=== PATIENT | female | born 1980 | race Caucasian/White ===

== ENCOUNTER 2023-12-13 09:16 | Outpatient (OUT) | payer BC, SELFPAY ==
[2023-12-13 09:49] LABS: Basophils Percent Auto 0.4 % (0.2-2.0); Eosinophils Absolute Auto 0.1 10^3/uL (0.0-0.7); Eosinophils Percent Auto 1.1 % (0.9-7.0); Hematocrit 40.8 % (36.0-48.0); Hemoglobin 13.4 g/dL (12.0-16.0); Immature Granulocytes Abs Auto 0.03 10^3/uL (0.00-0.03); Immature Granulocytes Pct Auto 0.6 % (0.0-0.5); Lymphocytes Absolute Auto 1.7 10^3/uL (1.2-3.8); Lymphocytes Percent Auto 31.1 % (20.5-60.0); Mean Corpuscular HGB Conc 32.8 g/dL (29.9-35.2); Mean Corpuscular Hemoglobin 30.6 pg (26.7-34.0); Mean Corpuscular Volume 93.2 fL (81.0-99.0); Mean Platelet Volume 8.9 fL (9.5-13.5); Monocytes Absolute Auto 0.7 10^3/uL (0.3-0.8); Monocytes Percent Auto 12.6 % (1.7-12.0); Neutrophils Absolute Auto 2.9 10^3/uL (1.4-6.5); Neutrophils Percent Auto 54.2 % (43.0-75.0); Platelet Count 259 10^3/uL (150-450); Red Blood Count 4.38 10^6/uL (4.20-5.40); Red Cell Distribution Width 13.4 % (11.0-15.0); White Blood Count 5.4 10^3/uL (4.0-11.0)
[2023-12-13 10:26] LABS: Estimated Average Glucose 100 mg/dL; Glycohemoglobin A1C 5.1 % (4.5-6.2)
[2023-12-13 10:37] LABS: Alanine Aminotransferase 30 U/L (14-59); Albumin Globulin Ratio 0.8; Albumin Level 3.5 g/dL (3.4-5.0); Alkaline Phosphatase 126 U/L (46-116); Anion Gap 15.6; Aspartate Amino Transferase 23 U/L (15-37); BUN Creatinine Ratio 13.9; Bilirubin Total 0.2 mg/dL (0.2-1.0); Calcium 8.6 mg/dL (8.5-10.1); Carbon Dioxide 23.7 mmol/L (21.0-32.0); Chloride 107 mmol/L (98-107); Chol HDL Ratio 2.9; Cholesterol 162 mg/dL (<=200); Estimated GFR (African America >60 (>=60); Estimated GFR (Non-African Ame >60 (>=60); Globulin 4.3 g/dL; Glucose 101 mg/dL (74-106); HDL Cholesterol 56 mg/dL (40-60); LDL Cholesterol Calculated 90.6 mg/dL; Potassium 4.3 mmol/L (3.5-5.1); Sodium 142 mmol/L (136-145); Thyroid Stimulating Hormone 1.311 uIU/mL (0.358-3.740); Total Protein 7.8 g/dL (6.4-8.2); Triglycerides 77 mg/dL (<=150); VLDL CHOLESTEROL 15.4 mg/dL
== END 2023-12-13 09:17 | disposition home or self-care (01) ==
LOC: LAB 09:22
PROVIDERS: PCP Family Medicine; Visit Provider Family Medicine
DX: E03.9 Hypothyroidism, unspecified (principal); I10 Essential (primary) hypertension; E78.5 Hyperlipidemia, unspecified; R53.83 Other fatigue; R73.09 Other abnormal glucose
CPT/HCPCS: 36415; 80053; 80061; 83036; 84439; 84443; 85025

== ENCOUNTER 2024-01-17 12:30 | Outpatient (OUT) | payer BC, SELFPAY ==
--- OUTSIDE RECORDS SUMMARY | 2024-01-17 12:51 | XMS_ITS | CCD ---
Author Organization [facility] Care Team Providers Care Manager Of Creative Services Name Role Phone Angelica De Primary Care Physician DR ANGELICA DE Primary Care Unavailable BEA FARMER Consulting Unavailable BEA FARMER Attending Unavailable BEA FARMER Admitting Unavailable SANTINO, DR DOMINGUEZ Primary Care Unavailable SANTINO, DR DOMINGUEZ Consulting Unavailable SANTINO, DR DOMINGUEZ Attending Unavailable SANTINO, DR DOMINGUEZ Admitting Unavailable RUTHIE, DR BELIA Xiong Consulting Unavailable ELIEZER, DR BRIGHT Consulting Unavailable SANTINO, DR DOMINGUEZ Primary Care Unavailable ELIEZER, DR BRIGHT Consulting Unavailable ELIEZER, DR BRIGHT Attending Unavailable ELIEZER, DR BRIGHT Admitting Unavailable EMILY MCDERMOTT Attending Unavailable EMILY MCDERMOTT Admitting Unavailable SANTINO, DR DOMINGUEZ Primary Care Unavailable NIKITA JOHNSON Consulting Unavailable IWONA BRITT Consulting Unavailable EMILY MCDERMOTT Consulting Unavailable SANTINO, DR DOMINGUEZ Primary Care Unavailable SANTINO, DR DOMINGUEZ Attending Unavailable SANTINO, DR DOMINGUEZ Admitting Unavailable SANTINO, DR DOMINGUEZ Primary Care Unavailable DWAINY, DR DOMINGUEZ Consulting Unavailable SANTINO, DR DOMINGUEZ Attending Unavailable SANTINO, DR DOMINGUEZ Admitting Unavailable SANTINO, DR DOMINGUEZ Primary Care Unavailable SANTINO, DR DOMINGUEZ Consulting Unavailable SANTINO, DR DOMINGUEZ Attending Unavailable SANTINO, DR DOMINGUEZ Admitting Unavailable SANTINO, DR DOMINGUEZ Admitting Unavailable SANTINO, DR DOMINGUEZ Primary Care Unavailable SANTINO, DR DOMINGUEZ Consulting Unavailable SANTINO, DR DOMINGUEZ Attending Unavailable KHANH, DR AMANDA Nieves Consulting Unavailable SANTINO, DR DOMINGUEZ Primary Care Unavailable SANTINO, DR DOMINGUEZ Consulting Unavailable SANTINO, DR DOMINGUEZ Attending Unavailable SANTINO, DR DOMINGUEZ Admitting Unavailable ZININI, DR AMANDA Nieves Consulting Unavailable Shae Love Unavailable RUBY Love Attending Provider [phone] Shae Love Attending Unavailable Shae Love Admitting Unavailable Allergies Allergy Classification Reported Allergen(s) Allergy Type Date of Onset Reaction(s) Facility (5 sources) Latex; Translations: [Latex] Drug allergy 3 Eruption of skin (disorder), rash [facility] (4 sources) Sulfamethoxazole / Trimethoprim; Translations: [sulfamethoxazole-tr imethoprim] Drug Allergy Weal (disorder), hives [facility] (2 sources) natural latex rubber Drug allergy (disorder) [facility] Repository (2 sources) Sulfamethoxazole / Trimethoprim Drug Allergy [facility] Repository (1 source) Sulfamethoxazole Drug Allergy 3 [facility] Repository (1 source) Trimethoprim Drug Allergy 3 [facility] Repository Medications Current Medications Medication Drug Class(es) Dates Sig (Normalized) Sig (Original) desvenlafaxine 100 mg oral tablet (4 sources) Serotonin and Norepinephrine Reuptake Inhibitor Start: 04-14-2022 take 1 tablet by mouth once daily desvenlafaxine 100 mg Tab- 100 mg = 1 tab(s), Oral, Daily, Refills(s) 0 Start Date: 04/14/22 Status: Ordered Desvenlafaxine E R 100mg Active diclofenac sodium 75 mg delayed release oral tablet (3 sources) Nonsteroidal Anti-inflammatory Drug Start: 04-14-2022 take 1 tablet by mouth twice daily diclofenac sodium 75 mg Oral EC Tab 75 mg = 1 tab(s), Oral, BID, Refills(s) 0 Start Date: 04/14/22 Status: Ordered hydrOXYzine pamoate 25 mg oral capsule (4 sources) Antihistamine Start: 04-14-2022 take 1 capsule by mouth four times daily as needed for anxiety hydrOXYzine pamoate 25 mg Cap 25 mg = 1 cap(s), Oral, QID, PRN as needed for anxiety, Refills(s) 0 Start Date: 04/14/22 Status: Ordered Vistaril prn, ta kes at least QD Active methylPREDNISolone 4 mg oral tablet (1 source) Corticosteroid Start: 09-13-2023 methylPREDNISolone 4 MG as directed Orally for daily dose take half with breakfast, half with dinner for 6 days Aug, Active pantoprazole 40 mg delayed release oral tablet (4 sources) Proton Pump Inhibitor Start: 04-14-2022 take 1 tablet by mouth once daily Protonix 40 mg Tab-DR 40 mg = 1 tab(s), Oral, Daily, Refills(s) 0 Start Date: 04/14/22 Status: Ordered QUEtiapine 25 mg oral tablet (4 sources) Atypical Antipsychotic Start: 04-14-2022 take 1 tablet by mouth once daily SEROquel 25 mg Tab 25 mg = 1 tab(s), Oral, Daily, Refills(s) 0 Start Date: 04/14/22 Status: Ordered take 1 tablet by grzegorz th every twenty-four hours SEROquel 100 MG 1 tablet at bedtime Orally Once a day Active valACYclovir 500 mg oral tablet (4 sources) Herpesvirus Nucleoside Analog DNA Polymerase Inhibitor, Herpes Simplex Virus Nucleoside Analog DNA Polymerase Inhibitor, Herpes Zoster Virus Nucleoside Analog DNA Polymerase Inhibitor Start: 04-14-2022 take 1 tablet by mouth once daily valacyclovir 500 mg Tab 500 mg = 1 tab(s), Oral, Daily, Refills(s) 0 Start Date: 04/14/22 Status: Ordered valACYclovir HCl Active Completed/Discontinued Medications Medication Drug Class(es) Dates Sig (Normalized) Sig (Original) levothyroxine (1 source) l-Thyroxine Levothyroxine So dium Not-Taking Tate-Linyah (1 source) Tate-Linyah Not- Taking Problems Active Problems Problem Classification Problem Date Documented Da te Episodic/Chronic Anxiety disorders (8 sources) Anxiety; Translations: [Anxiety disorder, unspecified] Onset: 04-08-2022 04-14-2022 Chronic Congestive heart failure; nonhypertensive (1 source) Unspecified diastolic (congestive) heart failure; Translations: [UNSPECIFIED DIASTOLIC HEART FAILURE] Onset: 04-19-2022 Chronic Endometriosis (3 sources) Endometriosis (clinical) 07-09-2015 Chronic Essential hypertension (3 sources) Hypertensive disorder 04-14-2022 Chronic Headache; including migraine (3 sources) Migraine 04-14-2022 Chronic Hypertension with complications and secondary hypertension (1 source) Hypertensive heart disease with heart failure; Translations: [HTN HEART DISEASE W/HEART FAIL] Onset: 04-19-2022 Chronic Neoplasms of unspecified nature or uncertain behavior (4 sources) Neoplasm of uncertain behavior of skin; Translations: [Neoplasm of uncertain behavior of skin] Onset: 04-21-2022 Episodic Other and unspecified benign neoplasm (2 sources) Benign neoplasm of skin of lower limb; Translations: [Other benign neoplasm of skin of unspecified lower limb, including hip] Onset: 05-12-2022 Episodic Other gastrointestinal disorders (3 sources) History of gastritis 04-14-2022 Episodic Other inflammatory condition of skin (3 sources) Psoriasis 04-14-2022 Chronic Other injuries and conditions due to external causes (1 source) Injury, unspecified, initial encounter Episodic Other non-traumatic joint disorders (1 source) Effusion, left knee Episodic Other nutritional; endocrine; and metabolic disorders (3 sources) Body mass index 25-29 - overweight 04-21-2022 Episodic Other screening for suspected conditions (not mental disorders or infectious disease) (6 sources) Encounter for screening mammogram for malignant neoplasm of breast; Translations: [Encounter for screening for malignant neoplasm of cervix] Onset: 04-19-2022 Episodic Other skin disorders (4 sources) Localized swelling, mass and lump, trunk; Translations: [LOCALIZD SWELLING MASS AND LUMP TRUNK] Onset: 09-01-2022 Episodic Pneumonia (except that caused by tuberculosis or sexually transmitted disease) (4 sources) Pneumonia, unspecified organism; Translations: [PNEUMONIA UNSPECIFIED ORGANISM] Onset: 10-09-2022 Episodic Residual codes; unclassified (1 source) Family history of malignant neoplasm of bladder; Translations: [FAM HX MALIGNANT NEOPLASM BLADDER] Onset: 09-07-2022 Episodic Residual codes; unclassified (1 source) Family history of malignant neoplasm of breast; Translations: [FAMILY HX MALIG NEOPLASM OF BREAST] Onset: 09-07-2022 Episodic Thyroid disorders (3 sources) Hypothyroidism 04-14-2022 Chronic Unclassified (1 source) CONTACT W/AND (SUSP) EXPOS COVID-19; Translations: [CONTACT W/AND (SUSP) EXPOS COVID-19] Onset: 09-07-2022 Unclassified (1 source) Effusion, left knee; Translations: [Effusion, left knee] Onset: 09-13-2023 Past or Other Problems Problem Classification Problem Date Documented Date Episodic/Chronic Abdominal pain (3 sources) Unspecified abdominal pain; Translations: [UNSPECIFIED ABDOMINAL PAIN] Onset: 02-25-2022 Episodic Calculus of urinary tract (9 sources) History of calculus of kidney; Translations: [Calculus of kidney] Onset: 02-27-2022 04-14-2022 Episodic Deficiency and other anemia (1 source) Anemia, unspecified; Translations: [ANEMIA UNSPECIFIED] Onset: 04-19-2022 Episodic Diabetes mellitus without complication (1 source) Other abnormal glucose; Translations: [OTHER ABNORMAL GLUCOSE] Onset: 04-19-2022 Episodic Genitourinary symptoms and ill-defined conditions (1 source) Hematuria, unspecified; Translations: [HEMATURIA UNSPECIFIED] Onset: 02-28-2022 Episodic Immunizations and screening for infectious disease (1 source) Encounter for screening for human papillomavirus (HPV); Translations: [ENC SCREENING HUMAN PAPILLOMAVIRUS] Onset: 06-02-2022 Episodic Other diseases of kidney and ureters (1 source) Hydronephrosis with renal and ureteral calculous obstruction; Translations: [HYDRONPHROS RENL AND URETRL CALCUL OBST] Onset: 02-28-2022 Episodic Other lower respiratory disease (5 sources) Dyspnea, unspecified; Translations: [DYSPNEA UNSPECIFIED] Onset: 04-05-2022 Episodic Residual codes; unclassified (1 source) Acquired absence of other specified parts of digestive tract; Translations: [ACQ ABSENCE OTH PART DIGESTV TRACT] Onset: 02-28-2022 Episodic Residual codes; unclassified (1 source) Acquired absence of both cervix and uterus; Translations: [ACQUIRED ABSENCE BOTH CERVIX AND UTERUS] Onset: 02-28-2022 Episodic Results Test Name Value Interpretation Reference Range Facility XR knee LT 4V*on 09-13-2023 XR knee LT 4V* [facility] [employer] Other XR knee LT 4V* [facility] [employer] Other XR knee LT 4V* [address] [facility] [employer] Other XR knee LT 4V* [place] [address] No [facility] [employer] Other XR knee LT 4V* XRay Report [employer] Other XR knee LT 4V* Signed [employer] Other XR knee LT 4V* Patient: Josephine Herndon MR#: [id number] [employer] Other XR knee LT 4V* 8 [employer] Other XR knee LT 4V* : 1980 Acct:[id number] [employer] Other XR knee LT 4V* Age/Sex: 43 / F ADM Date: 09/13/23 [employer] Other XR knee LT 4V* Loc: XDUCLY Room: Type: REG CLI [employer] Other XR knee LT 4V* Attending Dr: Shae Love [employer] [facility] [employer] Other XR knee LT 4V* Copies to: Shae Love 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 [employer] Other XR knee LT 4V* Ordering Provider: Shae Love APRN [employer] Other XR knee LT 4V* Date of Service: 09/13/23 [employer] Other XR knee LT 4V* XR/XR knee LT 4V*: Injury [employer] Other XR knee LT 4V* XR knee LT 4V* 09/13/2023 10:51 AM [employer] Other XR knee LT 4V* SIGNS AND SYMPTOMS: Twisting injury to left knee with pain and swelling medially [employer] Other XR knee LT 4V* PROTOCOL: Frontal, lateral, and oblique radiographs of the left knee [employer] Other XR knee LT 4V* COMPARISON: None [employer] Other XR knee LT 4V* FINDINGS: [employer] Other XR knee LT 4V* The joint spaces are preserved. There is a moderate joint effusion. There is no evidence of fracture [employer] Other XR knee LT 4V* or dislocation. No significant soft tissue swelling. [employer] Other XR knee LT 4V* XR/XR knee LT 4V* [employer] Other XR knee LT 4V* IMPRESSION: [employer] Other XR knee LT 4V* No fracture. [employer] Other XR knee LT 4V* There is a moderate joint effusion. [employer] Other XR knee LT 4V* Impression dictated by: Donato Rockwell M.D.09/13/2023 11:19 AM [employer] Other XR knee LT 4V* Dictation Location: [place] [address] [employer] Other XR knee LT 4V* Transcribed By: PWS 09/13/23 [facility] [employer] Other XR knee LT 4V* Dictated By: Donato Rockwell II, MD 09/13/23 [facility] [employer] Other XR knee LT 4V* Signed By: [employer] Other XR knee LT 4V* 09/13/23 [facility] [employer] Other XR knee LT 4V* [facility] Main [place] [address] [place] [address] XRay Report Signed Patient: Josephine Herndon MR#: [id number] : 1980 Acct:[id number] Age/Sex: 43 / F ADM Date: 09/13/23 Loc: XDUCLY Room: Type: [facility] Attending Dr: Shae Love APRN Copies to: Shae Love APRN Ordering Provider: Shae L Love, 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 Date of Service: 09/13/23 XR/XR knee LT 4V*: Injury XR knee LT 4V* 09/13/2023 10:51 AM SIGNS AND SYMPTOMS: Twisting injury to left knee with pain and swelling medially PROTOCOL: Frontal, lateral, and oblique radiographs of the left knee COMPARISON: None FINDINGS: The joint spaces are preserved. There is a moderate joint effusion. There is no evidence of fracture or dislocation. No significant soft tissue swelling. XR/XR knee LT 4V* IMPRESSION: No fracture. There is a moderate joint effusion. Impression dictated by: Donato Rockwell M.D.09/13/2023 11:19 AM Dictation Location: [place] [address] Transcribed By: [facility] 09/13/23 111 Dictated By: Donato Rockwell II, MD 09/13/23 1118 Signed By: 09/13/[address] [facility] CT CHEST WO CONon 10-10-2022 CT CHEST WO CON EXAMINATION: CT CHEST WO CON HISTORY: Pneumonia COMPARISON: CT chest 09/01/2022 TECHNIQUE: Axial, Coronal, and Sagittal images were created without the administration of IV contrast material. Dose reduction techniques were achieved by using automated exposure control and/or adjustment of mA and/or kV according to patient size and/or use of iterative reconstruction technique. FINDINGS: LUNGS: Clearing of previously seen infiltrates. A few stable areas favoring scarring. PLEURA: No mass, effusion, or pneumothorax. VASCULATURE: No abnormality. UNIQUE: No mass or adenopathy. MEDIASTINUM: No mass or adenopathy. CARDIAC: No enlargement or pericardial thickening. AORTA: No aneurysm or dissection. CHEST WALL: No mass or axillary adenopathy. BONES: No bone lesion or fracture. LIMITED ABDOMEN: No suspicious findings. Limited images of the upper abdomen. OTHER: Negative. IMPRESSION: 1. Clearing of previously seen infiltrates. 2. A few stable areas favoring scarring. Electronically authenticated by: AMANDA CASSIDY Date: 2022-10-10 10:35 Normal [facility] Covid-19 PCR (CVDTB)on SARS-CoV-2 (COVID-19) RNA RAYMOND+probe Ql (Unsp spec) Not detected Normal NOT DETECTED [facility] Comment on above: Result Comment: When diagnostic testing is negative, the possibility of a false negative should be considered in the context of a patient's recent exposures and the presence of clinical signs and symptoms consistent with SARS-CoV-2. This test is not yet approved or cleared by the [place] FDA. When there are no FDA-approved or cleared tests available, and other criteria are met, FDA can make tests available under an emergency access mechanism called an Emergency Use Authorization (EUA). The EUA for this test is supported by the Lathe Spotter of Health and Human Service's declaration that circumstances exist to justify the emergency use of in vitro diagnostics for the detection and/or diagnosis of the virus that causes COVID-19. This EUA will remain in effect for the duration of the COVID-19 declaration justifying emergency of IVDs, unless it is terminated or revoked by the FDA (after which the test may no longer be used). Performed By: #### C [facility] #### [facility] [address] [place] [address] CHEST WO CONon 09-01-2022 CT CHEST WO CON EXAMINATION: CT CHEST WO CON HISTORY: Mass of chest wall COMPARISON: 08/17/2021 TECHNIQUE: Multi-planar CT images were created with IV contrast. Axial, Coronal, and Sagittal images. Dose reduction techniques were achieved by using automated exposure control and/or adjustment of mA and/or kV according to patient size and/or use of iterative reconstruction technique. FINDINGS: LUNGS: Some mild scattered groundglass opacity identified in the upper lung zones. Increased interlobular septal thickening. Nonspecific. Mild peribronchial thickening with an upper lobe predominance. PLEURA: No pleural effusion or pneumothorax. Scattered areas of pleural thickening. The largest area in the posterior right upper lobe measures 1.1 x 0.4 cm axial image 25 VASCULATURE: No abnormality. UNIQUE: No mass or adenopathy. MEDIASTINUM: Increased number and size of prevascular pretracheal and subcarinal lymph nodes with the largest lymph node pretracheal measuring 1.2 x 1.0 cm CARDIAC: No enlargement, pericardial thickening, or significant calcification. AORTA: No aneurysm or dissection. CHEST WALL: No mass or axillary adenopathy. BONES: No bone lesion or fracture. LIMITED ABDOMEN: Diffuse hepatic hypoattenuation suggesting steatosis. Surgical clips from cholecystectomy. OTHER: Negative. IMPRESSION: New scattered groundglass opacities peribronchial thickening and interstitial changes with an upper lobe predominance, inflammatory versus infectious process Mild scattered pleural thickening with a new area in the right upper lobe measuring 1.1 x 0.4 cm, nonspecific Electronically authenticated by: BELIA HENDRICKS Date: 2022-09-01 09:55 Normal [facility] MG MAMM SCREEN 3D GUSTAVO CADon 09-01-2022 MG MAMM SCREEN 3D GUSTAVO CAD Patient: JOSEPHINE HERNDON Exam Date: 09/01/2022 : 1980 Gender:F Ordering : DR ANGELICA DE . Admission #: [id number] Family : Order #: [id number] CLICK HERE TO VIEW EXAM RADIOLOGY REPORT PROCEDURE: MAMMOGRAM SCREENING 3D BILATERAL CAD COMPARISON: MG MAMM SCREEN GUSTAVO W CAD, 07/16/2020. INDICATIONS: Screening mammography Calculator Name NCI Breast Cancer Risk Assessment Tool 5 Year Breast Cancer Risk 0.60% Lifetime Breast Cancer Risk 8.80% Personal Breast Cancer No Personal Ovarian Cancer No Treatments None Family Cancers Aunt-maternal with breast cancer at age 55; Father with bladder cancer at age 60. LOCATION: [facility] BREAST COMPOSITION: Scattered areas fibroglandular density. FINDINGS: DIAGNOSTIC CATEGORY 2--BENIGN FINDING. NO CHANGE FROM COMPARISON. Scattered benign-appearing calcifications are present. Scattered benign-appearing lymph nodes are present. RIGHT BREAST: No significant suspicious finding. LEFT BREAST: No significant suspicious finding. Reniform nodule upper outer quadrant, stable, consistent with an intramammary lymph node RECOMMENDATIONS: ROUTINE MAMMOGRAM AND CLINICAL EVALUATION IN 12 MONTHS. PLEASE NOTE: A NORMAL MAMMOGRAM DOES NOT EXCLUDE THE POSSIBILITY OF BREAST CANCER. A CLINICALLY SUSPICIOUS PALPABLE LUMP SHOULD BE BIOPSIED. Dictated by: Belia Hendricks MD on 09/01/2022 at 09:30 Approved by: Belia Hendricks MD on 09/01/2022 at 09:32 Normal [facility] PAP ACOG PANEL 2: 21 to 29on 06-02-2022 . . Normal [facility] Comment on above: Result Comment: Perf ormed at: WB Performed By: #### [id number] #### [facility] [address] [place] [address] Dr. Les Bryan Age Gdln ACOG Testing 30-65 Normal [facility] Comment on above: Performed By: #### [id number] #### [facility] [address] [place] [address] [address] Les Bryan DIAGNOSIS: Comment Normal [facility] Comment on above: Result Comment: NEGA TIVE FOR INTRAEPITHELIAL LESION OR MALIGNANCY. Performed at: WB Performed By: #### [id number] #### [facility] [address] [place] [address] [address] Les Bryan HPV Aptima Negative Normal Negative [facility] Comment on above: Result Comment: This nucleic acid amplification test detects fourteen high-risk HPV types (16,18,31,33,35,39,45,51,52,56,58,59,66,68) without differentiation. Performed at: =G Performed By: #### [id number] #### [facility] [address] [place] [address] [address] Les Bryan Methodology: Comment Normal [facility] Comment on above: Result Comment: This liquid based ThinPrep(R) pap test was screened with the use of an image guided system. Performed at: WB Performed By: #### [id number] #### [facility] [address] [place] [address] [address] Les Bryan Note: Comment Normal [facility] Comment on above: Result Comment: The Pap smear is a screening test designed to aid in the detection of premalignant and malignant conditions of the uterine cervix. It is not a diagnostic procedure and should not be used as the sole means of detecting cervical cancer. Both false-positive and false-negative reports do occur. . Performed at: WB Performed By: #### [id number] #### [facility] [address] [place] [address] [address] Les Bryan Performed by: Comment Normal [facility] Comment on above: Result Comment: Bella Cuevas, Collar Sewer (ASCP) Performed at: WB Performed By: #### [id number] #### [facility] [address] [place] [address] [address] Les Bryan Specimen adequacy: Comment Normal [facility] Comment on above: Result Comment: Sati sfactory for evaluation. Endocervical and/or squamous metaplastic cells (endocervical component) are present. Performed at: WB Performed By: #### [id number] #### [facility] [address] [place] [address] Dr. Les Bryan General Surgery Office/Clini c Noteon 05-14-2022 General Surgery Office/Clinic Note Chief Complaint in-office skin lesion removal HPI Staff Presents for in-office skin lesion removal left ankle. History of Present Illness patient presents for excisional biopsy of painful, enlarging lesion left ankle; no change from resent evaluation. Review of Systems ROS - Provider Constitutional: no fever, no sweats, no weight loss. Eyes: no glasses, no blurred vision, no visual loss. ENMT: no dentures, no hoarseness, no swallowing difficulties, no hearing loss, no ear infection(s), no nose bleeds. Cardiovascular: normal blood pressure, no chest pain, regular heartbeat, no heart murmur. Respiratory: no shortness of breath, no cough, no asthma, no wheezing. Gastrointestinal: no nausea, no vomiting, no diarrhea, no constipation, no blood in stool, no change in bowel habits, no abdominal pain, no hepatitis. Genitourinary: no kidney stones, no urine infection, no dysuria. Musculoskeletal: no pain, no weakness. Skin: no changing moles, no rash, no skin lumps. Neurologic: no seizures, no epilepsy, no headache. Psychiatric: no emotional or psychiatric problem. Heme/Lymph: no bleeding problems, no anemia, no blood clots, no transfusions. Allergy/Immunologic: no swollen lymph nodes/glands, no IV drug abuse. Other: Additional ROS info: Except as noted in the above Review of Systems and in the History of Present Illness, all other systems have been reviewed and are negative or noncontributory. Physical Exam skin: left ankle with red, raised 7 mm lesion, central scab Procedure patient brought to the procedure room, placed in supine position, area prepped and draped in sterile fashion; anesthetized with 1 % lidocaine; lesion excised in elliptical fashion down to subcutaneous fat; total length 1.5 cm, closed with interrupted 4-0 nylon sutures; tolerated well; ebl < 2 ml; sterile dressing applied. Assessment/Plan 1. Neoplasm of uncertain behavior of skin of ankle (D48.5: Neoplasm of uncertain behavior of skin) excised under local anesthesia, tolerated well; keep incision clean and dry; follow up in 1 week for wound check. 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 Medications desvenlafaxine 100 mg Tab-, 100 mg= 1 tab(s), Oral, Daily diclofenac sodium 75 mg Oral EC Tab, 75 mg= 1 tab(s), Oral, BID hydrOXYzine pamoate 25 mg Cap, 25 mg= 1 cap(s), Oral, QID, PRN Protonix 40 mg Tab-DR, 40 mg= 1 tab(s), Oral, Daily SEROquel 25 mg Tab, 25 mg= 1 tab(s), Oral, Daily valacyclovir 500 mg Tab, 500 mg= 1 tab(s), Oral, Daily Allergies Latex (Rash) sulfamethoxazole-tri methoprim (Hives) Social History Alcohol - No Risk, 07/09/2015 Employment/School - Medium Risk, 07/09/2015 Exercise - Does not exercise, 07/09/2015 Home/Environment - No Risk, 07/09/2015 Nutrition/Health - No Risk, 07/09/2015 Sexual - Low Risk, 07/09/2015 Substance Abuse - Denies Substance Abuse, 04/21/2022 Tobacco - No Risk, 07/09/2015 Former smoker, quit more than 30 days ago Tobacco Use:. Never Smokeless Tobacco Use:. Cigarettes, 0.5 per day. Started age 16.0 Years. Stopped age 27 Years., 04/21/2022 Family History Alcoholism: Father. Hyperlipidemia: Mother. Hypothyroidism: Mother. Primary malignant neoplasm of bladder: Father. Normal [facility] Comment on above: Result Comment: Elec tronically Signed By: YOLY AKBAR, Jl Charles\Date and Time Signed: 05/14/22 18:35 EDT Ambulatory Visit Summaryon 0 05-12-2022 Ambulatory Visit Summary JOSEPHINE HERNDON :1980 Visit Date:05/12/2022 Ambulatory Visit Instructions Your Care Team Attending Physician - YOLY AKBAR, Jl Nieves Primary Care Physician - Santino AKBAR, Angelica This Is Your Medications List desvenlafaxine (desvenlafaxine 100 mg Tab-) diclofenac (diclofenac sodium 75 mg Oral EC Tab) hydrOXYzine (hydrOXYzine pamoate 25 mg Cap) pantoprazole (Protonix 40 mg Tab-DR) quetiapine (SEROquel 25 mg Tab) valacyclovir (valacyclovir 500 mg Tab) Procedures Performed Excision of dermatofibroma (05/03/2022), laparoscopic cholecystectomy with intraoperative cholangiogram (07/08/2015), Abdominal hysterectomy, Diagnostic laparoscopy, LEEP, Total bilateral salpingectomy. Medications What How Much When Instructions Unchanged desvenlafaxine (desvenlafaxine 100 mg Tab-) 1 Tablets By Mouth Every day Unchanged diclofenac (diclofenac sodium 75 mg Oral EC Tab) 1 Tablets By Mouth 2 times a day Unchanged hydrOXYzine (hydrOXYzine pamoate 25 mg Cap) 1 Capsules By Mouth 4 times a day as needed for as needed for anxiety Unchanged pantoprazole (Protonix 40 mg Tab-DR) 1 Tablets By Mouth Every day Unchanged quetiapine (SEROquel 25 mg Tab) 1 Tablets By Mouth Every day Unchanged valacyclovir (valacyclovir 500 mg Tab) 1 Tablets By Mouth Every day Allergies Latex (Rash) sulfamethoxazole-tri methoprim (Hives) Problems Ongoing - Any problem that you are currently receiving treatment for. 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 Migraine Psoriasis [facility] General Surgery Office/Clini c Noteon 05-12-2022 General Surgery Office/Clinic Note Chief Complaint follow up in-office excisional biopsy HPI Staff 9 day post in-office excisional biopsy left ankle. Denies pain, bleeding or drainage. Sutures intact. History of Present Illness 9 days s/p excisional biopsy changing lesion left lateral ankle; some initial swelling; no drainage; no pain; pathology consistent with dermatofibroma. Review of Systems ROS - Provider Constitutional: no fever, no sweats, no weight loss. Eyes: no glasses, no blurred vision, no visual loss. ENMT: no dentures, no hoarseness, no swallowing difficulties, no hearing loss, no ear infection(s), no nose bleeds. Cardiovascular: normal blood pressure, no chest pain, regular heartbeat, no heart murmur. Respiratory: no shortness of breath, no cough, no asthma, no wheezing. Gastrointestinal: no nausea, no vomiting, no diarrhea, no constipation, no blood in stool, no change in bowel habits, no abdominal pain, no hepatitis. Genitourinary: no kidney stones, no urine infection, no dysuria. Musculoskeletal: no pain, no weakness. Skin: no changing moles, no rash, no skin lumps. Neurologic: no seizures, no epilepsy, no headache. Psychiatric: no emotional or psychiatric problem. Heme/Lymph: no bleeding problems, no anemia, no blood clots, no transfusions. Allergy/Immunologic: no swollen lymph nodes/glands, no IV drug abuse. Other: Additional ROS info: Except as noted in the above Review of Systems and in the History of Present Illness, all other systems have been reviewed and are negative or noncontributory. Physical Exam skin: incision healing well, no erythema or drainage, no ecchymoses; minimal edema. Assessment/Plan 1. Dermatofibroma of foot (D23.70: Other benign neoplasm of skin of unspecified lower limb, including hip) doing well, sutures removed except for 3; remove remaining sutures in 5 days; call with problems/questions. 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 Medications desvenlafaxine 100 mg Tab-, 100 mg= 1 tab(s), Oral, Daily diclofenac sodium 75 mg Oral EC Tab, 75 mg= 1 tab(s), Oral, BID hydrOXYzine pamoate 25 mg Cap, 25 mg= 1 cap(s), Oral, QID, PRN Protonix 40 mg Tab-DR, 40 mg= 1 tab(s), Oral, Daily SEROquel 25 mg Tab, 25 mg= 1 tab(s), Oral, Daily valacyclovir 500 mg Tab, 500 mg= 1 tab(s), Oral, Daily Allergies Latex (Rash) sulfamethoxazole-tri methoprim (Hives) Social History Alcohol - No Risk, 07/09/2015 Employment/School - Medium Risk, 07/09/2015 Exercise - Does not exercise, 07/09/2015 Home/Environment - No Risk, 07/09/2015 Nutrition/Health - No Risk, 07/09/2015 Sexual - Low Risk, 07/09/2015 Substance Abuse - Denies Substance Abuse, 04/21/2022 Tobacco - No Risk, 07/09/2015 Former smoker, quit more than 30 days ago Tobacco Use:. Never Smokeless Tobacco Use:. Cigarettes, 0.5 per day. Started age 16.0 Years. Stopped age 27 Years., 04/21/2022 Family History Alcoholism: Father. Hyperlipidemia: Mother. Hypothyroidism: Mother. Primary malignant neoplasm of bladder: Father. Normal [facility] Comment on above: Result Comment: Elec tronically Signed By: YOLY AKBAR, Jl Nieves\.br\Date and Time Signed: 05/12/22 16:00 EDT Pathology Noteon 05-08-2022 Pathology Note [id number] #[id number]:[id number] Normal [facility] Ambulatory Visit Summaryon 0 05-03-2022 Ambulatory Visit Summary JOSEPHINE HERNDON :1980 Visit Date:05/03/2022 Ambulatory Visit Instructions Your Care Team Attending Physician - YOLY AKBAR, Jl Nieves Primary Care Physician - Angelica De MD This Is Your Medications List desvenlafaxine (desvenlafaxine 100 mg Tab-) diclofenac (diclofenac sodium 75 mg Oral EC Tab) hydrOXYzine (hydrOXYzine pamoate 25 mg Cap) pantoprazole (Protonix 40 mg Tab-DR) quetiapine (SEROquel 25 mg Tab) valacyclovir (valacyclovir 500 mg Tab) Procedures Performed laparoscopic cholecystectomy with intraoperative cholangiogram (07/08/2015), Abdominal hysterectomy, Diagnostic laparoscopy, LEEP, Total bilateral salpingectomy. 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 Your Care Team Attending Physician - Jl FREDERICK MD Primary Care Physician - Angelica De MD Referring Physician - Angelica De MD This Is Your Medications List Contact prescribing physician if questions or concerns desvenlafaxine (desvenlafaxine 100 mg Tab-) diclofenac (diclofenac sodium 75 mg Oral EC Tab) hydrOXYzine (hydrOXYzine pamoate 25 mg Cap) pantoprazole (Protonix 40 mg Tab-DR) quetiapine (SEROquel 25 mg Tab) valacyclovir (valacyclovir 500 mg Tab) Procedures Performed laparoscopic cholecystectomy with intraoperative cholangiogram (07/08/2015), Abdominal hysterectomy, Diagnostic laparoscopy, LEEP, Total bilateral salpingectomy. Discharge Vitals Heart Rate (Peripheral) 92 Respiratory Rate 16 Blood Pressure 127/86 Height 163.1 cm Height 163.1 cm Weight 77.2 kg Weight 77.2 kg BMI 29.02 What to do next Scheduled Follow-Up Appointments Sunday 3:00 PM EDT With: Jl FREDERICK MD Where: General Surgery Nill/Said [facility] HEPATITIS PANEL, ACUTEon HBsAg Screen Negative Normal Negative [facility] Comment on above: Performed By: #### H EPACUT #### [facility] [address] [address] [address] Les Bryan HCV AB 0.2 s/co ratio Normal 0.0-0.9 [facility] Comment on above: Performed By: #### H EPACUT #### [facility] [address] [address] [address] Les Bryan Hep A Ab, IgM Negative Normal Negative [facility] Comment on above: Performed By: #### H EPACUT #### [facility] [address] [place] [address] Dr. Les Bryan Hep B Core Ab, IgM Negative Normal Negative [facility] Comment on above: Performed By: #### H EPACUT #### [facility] [address] [place] [address] Dr. Les Bryan Interpretation: Comment Normal [facility] Comment on above: Result Comment: Nega tive Not infected with HCV, unless recent infection is suspected or other evidence exists to indicate HCV infection. Performed By: #### H EPACUT #### [facility] [address] [place] [address] Dr. Les Bryan INSULINon 04-18-2022 Insulin 18.8 uIU/mL Normal 2.6-24.9 [facility] Comment on above: Performed By: #### I NSULIN #### [facility] [address] [place] [address] Dr. Les Bryan BILIRUBIN CONJUGATED (DIRECT )on 04-17-2022 BILI, CONJUGATED 0.1 mg/dL Normal 0.0-0.2 [facility] Comment on above: Performed By: #### RICARDO STEVENSON #### [facility] [address] [place] [address] Dr. Les Bryan BNPon 04-17-2022 Natriuretic peptide B (Bld) [Mass/Vol] 12.0 pg/mL Normal <=450.0 [facility] Comment on above: Performed By: #### RICARDO STEVENSON #### [facility] [address] [place] [address] Dr. Les Bryan CBC AUTO DIFFon 04-17-2022 BASO # 0.1 103/ul Normal 0.0-0.1 [facility] Comment on above: Performed By: #### C BC #### [facility] [address] [place] [address] Dr. Les Bryan Basophils/100 WBC (Bld) 0.6 % Normal 0.2-2.0 [facility] Comment on above: Performed By: #### C BC #### [facility] [address] [address] [address] Les Bryan EO # 0.3 103/ul Normal 0.0-0.7 [facility] Comment on above: Performed By: #### C BC #### [facility] [address] [place] [address] Dr. Les Bryan Eosinophils/100 WBC (Bld) 3.0 % Normal 0.9-7.0 [facility] Comment on above: Performed By: #### C BC #### [facility] [address] [place] [address] Dr. Les Bryan Erythrocyte distribution width (RBC) [Ratio] 13.2 % Normal 11.0-15.0 [facility] Comment on above: Performed By: #### C BC #### [facility] [address] [place] [address] Dr. Les Bryan Hematocrit (Bld) [Volume fraction] 40.8 % Normal 36.0-48.0 [facility] Comment on above: Performed By: #### C BC #### [facility] [address] [place] [address] Dr. Les Bryan Hemoglobin (Bld) [Mass/Vol] 13.4 g/dL Normal 12.0-16.0 [facility] Comment on above: Performed By: #### C BC #### [facility] [address] [place] [address] Dr. Les Bryan IG # 0.07 10e3/ul Critically high 0.00-0.03 [facility] Comment on above: Performed By: #### C BC #### [facility] [address] [place] [address] Dr. Les Bryan IG % 0.8 % Critically high 0.0-0.5 [facility] Comment on above: Performed By: #### C BC #### [facility] [address] [place] [address] Dr. Les Bryan LYMPH # 2.8 103/ul Normal 1.2-3.8 [facility] Comment on above: Performed By: #### C BC #### [facility] [address] [place] [address] Dr. Les Bryan Lymphocytes/100 WBC (Bld) 31.7 % Normal 20.5-60.0 [facility] Comment on above: Performed By: #### C BC #### [facility] [address] [place] [address] Dr. Les Bryan MANUAL DIFF REQ NO Normal [facility] Comment on above: Performed By: #### C BC #### [facility] [address] [place] [address] Dr. Les Bryan MCH (RBC) [Entitic mass] 29.5 pg Normal 26.7-34.0 [facility] Comment on above: Performed By: #### C BC #### [facility] [address] [place] [address] Dr. Les Bryan MCHC (RBC) [Mass/Vol] 32.8 g/dL Normal 29.9-35.2 [facility] Comment on above: Performed By: #### C BC #### [facility] [address] [place] [address] Dr. Les Bryan MCV (RBC) [Entitic vol] 89.9 fL Normal 81.0-99.0 [facility] Comment on above: Performed By: #### C BC #### [facility] [address] [place] [address] Dr. Les Bryan MONO # 0.4 103/ul Normal 0.3-0.8 [facility] Comment on above: Performed By: #### C BC #### [facility] [address] [place] [address] Dr. Les Bryan Monocytes/100 WBC (Bld) 4.7 % Normal 1.7-12.0 [facility] Comment on above: Performed By: #### C BC #### [facility] [address] [place] [address] Dr. Les Bryan NEUT # 5.3 103/ul Normal 1.4-6.5 [facility] Comment on above: Performed By: #### C BC #### [facility] [address] [address] [address] Les Bryan Neutrophils/100 WBC (Bld) 59.2 % Normal 43.0-75.0 [facility] Comment on above: Performed By: #### C BC #### [facility] [address] [address] [address] Les Bryan Platelet mean volume (Bld) [Entitic vol] 9.1 fL Critically low 9.5-13.5 [facility] Comment on above: Performed By: #### C BC #### [facility] [address] [address] [address] Les Bryan PLT 309 103/ul Normal 150-450 [facility] Comment on above: Performed By: #### C BC #### [facility] [address] [place] [address] Dr. Les Bryan RBC 4.54 106/ul Normal 4.20-5.40 [facility] Comment on above: Performed By: #### C BC #### [facility] [address] [address] [address] Les Bryan WBC 8.9 103/ul Normal 4.0-11.0 [facility] Comment on above: Performed By: #### C BC #### [facility] [address] [place] [address] Dr. Les Bryan FREE T3on 04-17-2022 FREE T3 2.02 pg/mlL Critically low 2.18-3.98 [facility] Comment on above: Performed By: #### RICARDO STEVENSON #### [facility] [address] [address] [address] Les Bryan FREE THYROXINE INDEX T7on FTI 2.07 Normal 1.30-4.50 [facility] Comment on above: Performed By: #### RICARDO STEVENSON #### [facility] [address] [address] [address] Les Bryan T3U 30.0 % Normal 30.0-39.0 [facility] Comment on above: Performed By: #### RICARDO STEVENSON #### [facility] [address] [address] [address] Les Bryan T4 [Mass/Vol] 6.90 ug/dL Normal 4.80-13.90 [facility] Comment on above: Performed By: #### RICARDO STEVENSON #### [facility] [address] [address] [address] Les Bryan GLYCOHEMOGLOBIN A1Con 2021 ADA RECOMMENDATION SEE BELOW Normal [facility] Comment on above: Result Comment: ADA RECOMMENDED LIMIT 4.0 - 6.0 ADA THERAPEUTIC TARGET < 7.0 ACTION SUGGESTED > 7.0 Performed By: #### A 1C #### [facility] [address] [place] [address] Dr. Les Bryan Glucose [Mass/Vol] 120 mg/dL Normal [facility] Comment on above: Performed By: #### A 1C #### [facility] [address] [place] [address] Dr. Les Bryan HbA1c (Bld) [Mass fraction] 5.8 % Normal 4.5-6.2 [facility] Comment on above: Performed By: #### A 1C #### [facility] [address] [place] [address] Dr. Les Bryan IRONon 04-17-2022 Iron [Mass/Vol] 66.0 ug/dL Normal 50.0-170.0 [facility] Comment on above: Performed By: #### RICARDO STEVENSON #### [facility] [address] [place] [address] Dr. Les Bryan LIPID PROFILEon 04-17-2022 CHOL-HDL RATIO NORM SEE BELOW Normal [facility] Comment on above: Result Comment: 3.3 - 4.4 LOW RISK 4.4 - 7.1 AVERAGE RISK 7.1 - 11.0 MODERATE RISK >11.0 HIGH RISK Performed By: #### RICARDO STEVENSON #### [facility] [address] [place] [address] Dr. Les Bryan Cholesterol [Mass/Vol] 244 mg/dL Critically high <=200 [facility] Comment on above: Performed By: #### Andi GUY UMICRO #### [facility] [address] [address] [address] Les Bryan Cholesterol in HDL [Mass/Vol] 55 mg/dL Normal 40-60 [facility] Comment on above: Performed By: #### Andi GUY UMICRO #### [facility] [address] [address] [address] Les Bryan Cholesterol in LDL [Mass/Vol] 155.4 mg/dL Normal [facility] Comment on above: Performed By: #### Andi GUY UMICRO #### [facility] [address] [address] [address] Les Bryan Cholesterol.total/Ch olesterol in HDL [Mass ratio] 4.4 {ratio} Normal [facility] Comment on above: Performed By: #### Andi GUY UMICRO #### [facility] [address] [place] [address] Dr. Les Bryan HDL NORMAL > or = 60 mg/dl - LOW CARDIOVASCULAR RISK <40 mg/dl - HIGH CARDIOVASCULAR RISK Normal [facility] Comment on above: Performed By: #### Andi GUY UMICRO #### [facility] [address] [address] [address] Les Bryan LDL CALC NORMAL SEE BELOW Normal [facility] Comment on above: Result Comment: <100 mg/dl OPTIMAL 100 - 129 mg/dl NEAR OR ABOVE OPTIMAL 130 - 159 mg/dl BORDERLINE HIGH 160 - 189 mg/dl HIGH >190 mg/dl VERY HIGH Performed By: #### Andi GUY UMICRO #### [facility] [address] [place] [address] Dr. Les Bryan Triglyceride [Mass/Vol] 168 mg/dL Critically high <=150 [facility] Comment on above: Performed By: #### Andi GUY UMICRO #### [facility] [address] [address] [address] Les Bryan VLDL CALC 33.6 mg/dL Normal [facility] Comment on above: Performed By: #### Andi GUY UMICRO #### [facility] [address] [place] [address] Dr. Les Bryan PROF 14(COMP METB)on 022 Albumin [Mass/Vol] 3.9 g/dL Normal 3.4-5.0 [facility] Comment on above: Performed By: #### Andi GUY, UMICRO #### [facility] [address] [place] [address] Dr. Les Bryan Albumin/Globulin [Mass ratio] 0.9 {ratio} Normal [facility] Comment on above: Performed By: #### Andi GUY UMICRO #### [facility] [address] [place] [address] Dr. Les Bryan ALP [Catalytic activity/Vol] 137 U/L Critically high 46-116 [facility] Comment on above: Performed By: #### Andi GUY UMICRO #### [facility] [address] [place] [address] Dr. Les Bryan ALT [Catalytic activity/Vol] 104 U/L Critically high 14-59 [facility] Comment on above: Performed By: #### Andi GUY UMICRO #### [facility] [address] [place] [address] Dr. Les Bryan Anion gap [Moles/Vol] 13.3 mmol/L Normal [facility] Comment on above: Performed By: #### Andi GUY UMICRO #### [facility] [address] [place] [address] Dr. Les Bryan AST [Catalytic activity/Vol] 59 U/L Critically high 15-37 [facility] Comment on above: Performed By: #### Andi GUY UMICRO #### [facility] [address] [place] [address] Dr. Les Bryan Bilirubin [Mass/Vol] 0.3 mg/dL Normal 0.2-1.0 [facility] Comment on above: Performed By: #### Andi GUY, UMICRO #### [facility] [address] [place] [address] Dr. Les Bryan Calcium [Mass/Vol] 9.0 mg/dL Normal 8.5-10.1 [facility] Comment on above: Performed By: #### RICARDO STEVENSON #### [facility] [address] [place] [address] Dr. Les Bryan Chloride [Moles/Vol] 104 mmol/L Normal 98-107 [facility] Comment on above: Performed By: #### RICARDO STEVENSON #### [facility] [address] [place] [address] Dr. Les Bryan CO2 [Moles/Vol] 25.0 mmol/L Normal 21.0-32.0 [facility] Comment on above: Performed By: #### RICARDO STEVENSON #### [facility] [address] [place] [address] Dr. Les Bryan Creatinine [Mass/Vol] 0.70 mg/dL Normal 0.55-1.02 [facility] Comment on above: Performed By: #### RICARDO STEVENSON #### [facility] [address] [place] [address] Dr. Les Bryan EGFR-AF GABONESE 111 mL/min/1.73m2 Normal >=60 [facility] Comment on above: Performed By: #### RICARDO STEVENSON #### [facility] [address] [place] [address] Dr. Les Bryan EGFR-NON AF GABONESE 92 mL/min/1.73m2 Normal >=60 [facility] Comment on above: Performed By: #### BARBER STEVENSONRO #### [facility] [address] [place] [address] Dr. Les Bryan Globulin (S) [Mass/Vol] 4.3 g/dL Normal [facility] Comment on above: Performed By: #### RICARDO STEVENSON #### [facility] [address] [place] [address] Dr. Les Bryan Glucose [Mass/Vol] 104 mg/dL Normal 74-106 [facility] Comment on above: Performed By: #### RICARDO STEVENSON #### [facility] [address] [place] [address] Dr. Les Bryan Potassium [Moles/Vol] 4.3 mmol/L Normal 3.5-5.1 [facility] Comment on above: Performed By: #### Andi GUY, UMICRO #### [facility] [address] [place] [address] Dr. Les Bryan Protein [Mass/Vol] 8.2 g/dL Normal 6.4-8.2 [facility] Comment on above: Performed By: #### Andi GUY, UMICRO #### [facility] [address] [place] [address] Dr. Les Bryan Sodium [Moles/Vol] 138 mmol/L Normal 136-145 [facility] Comment on above: Performed By: #### Andi GUY UMICRO #### [facility] [address] [place] [address] Dr. Les Bryan Urea nitrogen [Mass/Vol] 10.0 mg/dL Normal 7.0-18.0 [facility] Comment on above: Performed By: #### Andi GUY UMICRO #### [facility] [address] [place] [address] Dr. Les Bryan Urea nitrogen/Creatinine [Mass ratio] 14.3 mg/mg Normal [facility] Comment on above: Performed By: #### Andi GUY UMICRO #### [facility] [address] [place] [address] Dr. Les Bryan TSHon 04-17-2022 TSH 4.067 uIU/mL Critically high 0.358-3.740 [facility] Comment on above: Performed By: #### T SH, DBIL, BNP, FT3, T7, LIPID, CMP #### [facility] [address] [place] [address] Dr. Les Bryan INSULINon 04-06-2022 Insulin 34.6 uIU/mL Critically high 2.6-24.9 [facility] Comment on above: Performed By: #### Andi GUY UMICRO #### [facility] [address] [place] [address] Dr. Les Bryan Physician Referralon 022 Physician Referral [id number] #[id number] Normal [facility] T4 LABCORPon 04-06-2022 T4 [Mass/Vol] 6.7 ug/dL Normal 4.5-12.0 [facility] Comment on above: Performed By: #### [id number] #### [facility] [address] [place] [address] Dr. Les Bryan BNPon 04-05-2022 Natriuretic peptide B (Bld) [Mass/Vol] 18.0 pg/mL Normal <=450.0 The [facility] Comment on above: Performed By: #### E RICARDO GUY #### [facility] [address] [place] [address] Dr. Les Bryan CBC AUTO DIFFon 04-05-2022 BASO # 0.1 103/ul Normal 0.0-0.1 [facility] Comment on above: Performed By: #### [id number] #### [facility] [address] [place] [address] Dr. Les Bryan Basophils/100 WBC (Bld) 0.6 % Normal 0.2-2.0 [facility] Comment on above: Performed By: #### 4 [id number] #### [facility] [address] [place] [address] Dr. Les Bryan EO # 0.2 103/ul Normal 0.0-0.7 The [facility] Comment on above: Performed By: #### 4 [id number] #### [facility] [address] [place] [address] Dr. Les Bryan Eosinophils/100 WBC (Bld) 1.9 % Normal 0.9-7.0 [facility] Comment on above: Performed By: #### 4 [id number] #### [facility] [address] [place] [address] Dr. Les Bryan Erythrocyte distribution width (RBC) [Ratio] 13.3 % Normal 11.0-15.0 [facility] Comment on above: Performed By: #### 4 [id number] #### [facility] [address] [place] [address] Dr. Les Bryan Hematocrit (Bld) [Volume fraction] 39.1 % Normal 36.0-48.0 [facility] Comment on above: Performed By: #### 4 [id number] #### [facility] [address] [place] [address] Dr. Les Bryan Hemoglobin (Bld) [Mass/Vol] 13.2 g/dL Normal 12.0-16.0 [facility] Comment on above: Performed By: #### 4 [id number] #### [facility] [address] [place] [address] Dr. Les Bryan IG # 0.08 10e3/ul Critically high 0.00-0.03 [facility] Comment on above: Performed By: #### 4 [id number] #### [facility] [address] [place] [address] Dr. Les Bryan IG % 0.8 % Critically high 0.0-0.5 [facility] Comment on above: Performed By: #### 4 [id number] #### [facility] [address] [place] [address] Dr. Les Bryan LYMPH # 3.0 103/ul Normal 1.2-3.8 [facility] Comment on above: Performed By: #### 4 [id number] #### [facility] [address] [place] [address] Dr. Les Bryan Lymphocytes/100 WBC (Bld) 31.4 % Normal 20.5-60.0 [facility] Comment on above: Performed By: #### 4 [id number] #### [facility] [address] [place] [address] Dr. Les Bryan MANUAL DIFF REQ NO Normal [facility] Comment on above: Performed By: #### 4 [id number] #### [facility] [address] [place] [address] Dr. Les Bryan MCH (RBC) [Entitic mass] 30.1 pg Normal 26.7-34.0 [facility] Comment on above: Performed By: #### 4 [id number] #### [facility] [address] [place] [address] Dr. Les Bryan MCHC (RBC) [Mass/Vol] 33.8 g/dL Normal 29.9-35.2 [facility] Comment on above: Performed By: #### 4 [id number] #### [facility] [address] [place] [address] Dr. Les Bryan MCV (RBC) [Entitic vol] 89.1 fL Normal 81.0-99.0 [facility] Comment on above: Performed By: #### 4 [id number] #### [facility] [address] [place] [address] Dr. Les Bryan MONO # 0.6 103/ul Normal 0.3-0.8 [facility] Comment on above: Performed By: #### 4 [id number] #### [facility] [address] [place] [address] Dr. Les Bryan Monocytes/100 WBC (Bld) 6.1 % Normal 1.7-12.0 [facility] Comment on above: Performed By: #### 4 [id number] #### [facility] [address] [place] [address] Dr. Les Bryan NEUT # 5.6 103/ul Normal 1.4-6.5 [facility] Comment on above: Performed By: #### 4 [id number] #### [facility] [address] [place] [address] Dr. Les Bryan Neutrophils/100 WBC (Bld) 59.2 % Normal 43.0-75.0 The [facility] Comment on above: Performed By: #### 4 [id number] #### [facility] [address] [place] [address] Dr. Les Bryan Platelet mean volume (Bld) [Entitic vol] 9.0 fL Critically low 9.5-13.5 [facility] Comment on above: Performed By: #### 4 [id number] #### [facility] [address] [place] [address] Dr. Les Bryan PLT 286 103/ul Normal 150-450 [facility] Comment on above: Performed By: #### 4 [id number] #### [facility] [address] [place] [address] Dr. Les Bryan RBC 4.39 106/ul Normal 4.20-5.40 [facility] Comment on above: Performed By: #### 4 [id number] #### [facility] [address] [place] [address] Dr. Les Bryan WBC 9.5 103/ul Normal 4.0-11.0 [facility] Comment on above: Performed By: #### 4 [id number] #### [facility] [address] [place] [address] Dr. Les Bryan FREE T3on 04-05-2022 FREE T3 2.73 pg/mlL Normal 2.18-3.98 [facility] Comment on above: Performed By: #### RICARDO STEVENSON #### [facility] [address] [place] [address] Dr. Les Bryan FREE THYROXINE INDEX T7on FTI 2.08 Normal 1.30-4.50 [facility] Comment on above: Performed By: #### RICARDO STEVENSON #### [facility] [address] [place] [address] Dr. Les Bryan T3U 31.0 % Normal 30.0-39.0 [facility] Comment on above: Performed By: #### RICARDO STEVENSON #### [facility] [address] [place] [address] Dr. Les Bryan T4 [Mass/Vol] 6.70 ug/dL Normal 4.80-13.90 [facility] Comment on above: Result Comment: T4 t esting performed by [facility] Performed By: #### RICARDO STEVENSON #### [facility] [address] [place] [address] Dr. Les Bryan GLYCOHEMOGLOBIN A1Con 2021 ADA RECOMMENDATION SEE BELOW Normal [facility] Comment on above: Result Comment: ADA RECOMMENDED LIMIT 4.0 - 6.0 ADA THERAPEUTIC TARGET < 7.0 ACTION SUGGESTED > 7.0 Performed By: #### [id number] #### [facility] [address] [place] [address] Dr. Les Bryan Glucose [Mass/Vol] 120 mg/dL Normal [facility] Comment on above: Performed By: #### 4 [id number] #### [facility] [address] [place] [address] Dr. Les Bryan HbA1c (Bld) [Mass fraction] 5.8 % Normal 4.5-6.2 [facility] Comment on above: Performed By: #### 4 [id number] #### [facility] [address] [place] [address] Dr. Les Bryan IRONon 04-05-2022 Iron [Mass/Vol] 105.0 ug/dL Normal 50.0-170.0 [facility] Comment on above: Performed By: #### RICARDO STEVENSON #### [facility] [address] [place] [address] Dr. Les Bryan LIPID PROFILEon 04-05-2022 CHOL-HDL RATIO NORM SEE BELOW Normal [facility] Comment on above: Result Comment: 3.3 - 4.4 LOW RISK 4.4 - 7.1 AVERAGE RISK 7.1 - 11.0 MODERATE RISK >11.0 HIGH RISK Performed By: #### RICARDO STEVENSON #### [facility] [address] [place] [address] Dr. Les Bryan Cholesterol [Mass/Vol] 217 mg/dL Critically high <=200 [facility] Comment on above: Performed By: #### RICARDO STEVENSON #### [facility] [address] [place] [address] Dr. Les Bryan Cholesterol in HDL [Mass/Vol] 49 mg/dL Normal 40-60 [facility] Comment on above: Performed By: #### RICARDO STEVENSON #### [facility] [address] [place] [address] Dr. Les Bryan Cholesterol in LDL [Mass/Vol] 128.2 mg/dL Normal [facility] Comment on above: Performed By: #### Andi GUY, UMICRO #### [facility] [address] [address] [address] Les Bryan Cholesterol.total/Ch olesterol in HDL [Mass ratio] 4.4 {ratio} Normal The [facility] Comment on above: Performed By: #### E BROOKS, UMICRO #### [facility] [address] [address] [address] Les Bryan HDL NORMAL > or = 60 mg/dl - LOW CARDIOVASCULAR RISK <40 mg/dl - HIGH CARDIOVASCULAR RISK Normal [facility] Comment on above: Performed By: #### Andi GUY UMICRO #### [facility] [address] [address] [address] Les Bryan LDL CALC NORMAL SEE BELOW Normal [facility] Comment on above: Result Comment: <100 mg/dl OPTIMAL 100 - 129 mg/dl NEAR OR ABOVE OPTIMAL 130 - 159 mg/dl BORDERLINE HIGH 160 - 189 mg/dl HIGH >190 mg/dl VERY HIGH Performed By: #### Andi GUY, UMICRO #### [facility] [address] [address] [address] Les Bryan Triglyceride [Mass/Vol] 199 mg/dL Critically high <=150 [facility] Comment on above: Performed By: #### Andi GUY, UMICRO #### [facility] [address] [place] [address] Dr. Les Bryan VLDL CALC 39.8 mg/dL Normal The [facility] Comment on above: Performed By: #### Andi GUY, UMICRO #### [facility] [address] [address] [address] Les Bryan PROF 14(COMP METB)on 022 Albumin [Mass/Vol] 3.8 g/dL Normal 3.4-5.0 [facility] Comment on above: Performed By: #### Andi GUY, UMICRO #### [facility] [address] [address] [address] Les Bryan Albumin/Globulin [Mass ratio] 0.9 {ratio} Normal [facility] Comment on above: Performed By: #### BARBER STEVENSONRO #### [facility] [address] [place] [address] Dr. Les Bryan ALP [Catalytic activity/Vol] 122 U/L Critically high 46-116 [facility] Comment on above: Performed By: #### Andi GUY UMICRO #### [facility] [address] [place] [address] Dr. Les Bryan ALT [Catalytic activity/Vol] 90 U/L Critically high 14-59 [facility] Comment on above: Performed By: #### Andi GUY UMICRO #### [facility] [address] [place] [address] Dr. Les Bryan Anion gap [Moles/Vol] 13.5 mmol/L Normal [facility] Comment on above: Performed By: #### BARBER STEVENSONRO #### [facility] [address] [place] [address] Dr. Les Bryan AST [Catalytic activity/Vol] 63 U/L Critically high 15-37 [facility] Comment on above: Performed By: #### BARBER STEVENSONRO #### [facility] [address] [place] [address] Dr. Les Bryan Bilirubin [Mass/Vol] 0.4 mg/dL Normal 0.2-1.0 [facility] Comment on above: Performed By: #### Andi GUY UMDARCIERO #### [facility] [address] [place] [address] Dr. Les Bryan Calcium [Mass/Vol] 9.3 mg/dL Normal 8.5-10.1 [facility] Comment on above: Performed By: #### BARBER STEVENSONRO #### [facility] [address] [place] [address] Dr. Les Bryan Chloride [Moles/Vol] 103 mmol/L Normal 98-107 [facility] Comment on above: Performed By: #### BARBER STEVENSONRO #### [facility] [address] [place] [address] Dr. Les Bryan CO2 [Moles/Vol] 24.6 mmol/L Normal 21.0-32.0 [facility] Comment on above: Performed By: #### RICARDO STEVENSON #### [facility] [address] [address] [address] Les Bryan Creatinine [Mass/Vol] 0.70 mg/dL Normal 0.55-1.02 [facility] Comment on above: Performed By: #### RICARDO STEVENSON #### [facility] [address] [address] [address] Les Bryan EGFR-AF GABONESE >60 Normal >=60 [facility] Comment on above: Performed By: #### RICARDO STEVENSON #### [facility] [address] [place] [address] Dr. Les Bryan EGFR-NON AF GABONESE >60 Normal >=60 [facility] Comment on above: Performed By: #### RICARDO STEVENSON #### [facility] [address] [address] [address] Les Bryan Globulin (S) [Mass/Vol] 4.1 g/dL Normal [facility] Comment on above: Performed By: #### RICARDO STEVENSON #### [facility] [address] [place] [address] Dr. Les Bryan Glucose [Mass/Vol] 110 mg/dL Critically high 74-106 [facility] Comment on above: Performed By: #### RICARDO STEVENSON #### [facility] [address] [address] [address] Les Bryan Potassium [Moles/Vol] 4.1 mmol/L Normal 3.5-5.1 [facility] Comment on above: Performed By: #### RICARDO STEVENSON #### [facility] [address] [address] [address] Les Bryan Protein [Mass/Vol] 7.9 g/dL Normal 6.4-8.2 [facility] Comment on above: Performed By: #### RICARDO STEVENSON #### [facility] [address] [address] [address] Les Bryan Sodium [Moles/Vol] 137 mmol/L Normal 136-145 [facility] Comment on above: Performed By: #### Andi GUY UMICRO #### [facility] [address] [place] [address] Dr. Les Bryan Urea nitrogen [Mass/Vol] 9.0 mg/dL Normal 7.0-18.0 [facility] Comment on above: Performed By: #### Andi GUY UMICRO #### [facility] [address] [place] [address] Dr. Les Bryan Urea nitrogen/Creatinine [Mass ratio] 12.9 mg/mg Normal [facility] Comment on above: Performed By: #### SABINE STEVENSONICRO #### [facility] [address] [place] [address] Dr. Les Bryan TSHon 04-05-2022 TSH 3.572 uIU/mL Normal 0.358-3.740 [facility] Comment on above: Performed By: #### Andi GUY UMDARCIERO #### [facility] [address] [place] [address] Dr. Les Bryan TSH RANGE SEE BELOW Normal [facility] Comment on above: Result Comment: <0.3 4 UIU/ml HYPERTHYROID 0.34-5.60 UIU/ml EUTHYROID >5.60 UIU/ml HYPOTHYROID Performed By: #### Andi GUY UMICRO #### [facility] [address] [place] [address] Dr. Les Bryan XR KUB 1 VIEWon 02-27-2022 XR KUB 1 VIEW EXAMINATION: XR KUB 1 VIEW HISTORY: Kidney stone COMPARISON: XR KUB 03/31/2021, CT abdomen pelvis 02/25/2022 FINDINGS: KIDNEY/URETER - RIGHT: No visible renal or ureteral calcifications. KIDNEY/URETER - LEFT: Small stones within inferior pole of kidney. PELVIS: No visible ureteral stones. BOWEL: No abnormal dilation or deviation. BONES: No acute abnormality. OTHER: Negative. No abnormal gaseous collections. IMPRESSION: 1. No visible right ureteral stones to correspond to recent CT findings; stone may have passed. 2. Nonobstructing left nephrolithiasis. Electronically authenticated by: AMANDA CASSIDY Date: 2022-02-27 15:05 Normal The [facility] AMYLASEon 02-25-2022 Amylase [Catalytic activity/Vol] 34 U/L Normal 25-115 [facility] Comment on above: Performed By: #### [id number] #### [facility] [address] [place] [address] Dr. Les Bryan CBC AUTO DIFFon 02-25-2022 BASO # 0.0 103/ul Normal 0.0-0.1 [facility] Comment on above: Performed By: #### C BC #### [facility] [address] [place] [address] Dr. Les Bryan Basophils/100 WBC (Bld) 0.4 % Normal 0.2-2.0 [facility] Comment on above: Performed By: #### C BC #### [facility] [address] [place] [address] Dr. Les Bryan EO # 0.3 103/ul Normal 0.0-0.7 [facility] Comment on above: Performed By: #### C BC #### [facility] [address] [place] [address] Dr. Les Byran Eosinophils/100 WBC (Bld) 3.6 % Normal 0.9-7.0 [facility] Comment on above: Performed By: #### C BC #### [facility] [address] [place] [address] Dr. Les Bryan Erythrocyte distribution width (RBC) [Ratio] 13.1 % Normal 11.0-15.0 [facility] Comment on above: Performed By: #### C BC #### [facility] [address] [place] [address] Dr. Les Bryan Hematocrit (Bld) [Volume fraction] 40.6 % Normal 36.0-48.0 [facility] Comment on above: Performed By: #### C BC #### [facility] [address] [place] [address] Dr. Les Bryan Hemoglobin (Bld) [Mass/Vol] 13.3 g/dL Normal 12.0-16.0 [facility] Comment on above: Performed By: #### C BC #### [facility] [address] [place] [address] Dr. Les Bryan IG # 0.06 10e3/ul Critically high 0.00-0.03 [facility] Comment on above: Performed By: #### C BC #### [facility] [address] [place] [address] Dr. Les Bryan IG % 0.6 % Critically high 0.0-0.5 [facility] Comment on above: Performed By: #### C BC #### [facility] [address] [place] [address] Dr. Les Bryan LYMPH # 3.6 103/ul Normal 1.2-3.8 [facility] Comment on above: Performed By: #### C BC #### [facility] [address] [place] [address] Dr. Les Bryan Lymphocytes/100 WBC (Bld) 38.2 % Normal 20.5-60.0 [facility] Comment on above: Performed By: #### C BC #### [facility] [address] [place] [address] Dr. Les Bryan MANUAL DIFF REQ NO Normal [facility] Comment on above: Performed By: #### C BC #### [facility] [address] [place] [address] Dr. Les Bryan MCH (RBC) [Entitic mass] 29.7 pg Normal 26.7-34.0 [facility] Comment on above: Performed By: #### C BC #### [facility] [address] [place] [address] Dr. Les Bryan MCHC (RBC) [Mass/Vol] 32.8 g/dL Normal 29.9-35.2 [facility] Comment on above: Performed By: #### C BC #### [facility] [address] [place] [address] Dr. Les Bryan MCV (RBC) [Entitic vol] 90.6 fL Normal 81.0-99.0 [facility] Comment on above: Performed By: #### C BC #### [facility] [address] [place] [address] Dr. Les Bryan MONO # 0.5 103/ul Normal 0.3-0.8 [facility] Comment on above: Performed By: #### C BC #### [facility] [address] [place] [address] Dr. Les Bryan Monocytes/100 WBC (Bld) 5.4 % Normal 1.7-12.0 [facility] Comment on above: Performed By: #### C BC #### [facility] [address] [place] [address] Dr. Les Bryan NEUT # 4.9 103/ul Normal 1.4-6.5 [facility] Comment on above: Performed By: #### C BC #### [facility] [address] [place] [address] Dr. Les Bryan Neutrophils/100 WBC (Bld) 51.8 % Normal 43.0-75.0 [facility] Comment on above: Performed By: #### C BC #### [facility] [address] [place] [address] Dr. Les Bryan Platelet mean volume (Bld) [Entitic vol] 9.2 fL Critically low 9.5-13.5 [facility] Comment on above: Performed By: #### C BC #### [facility] [address] [place] [address] Dr. Les Bryan PLT 335 103/ul Normal 150-450 [facility] Comment on above: Performed By: #### C BC #### [facility] [address] [place] [address] Dr. Les Bryan RBC 4.48 106/ul Normal 4.20-5.40 [facility] Comment on above: Performed By: #### C BC #### [facility] [address] [place] [address] Dr. Les Bryan WBC 9.4 103/ul Normal 4.0-11.0 [facility] Comment on above: Performed By: #### C BC #### [facility] [address] [address] [address] ABD/PELVIS WO CONon 02-25 CT ABD/PELVIS WO CON EXAM: CT ABD/PELVIS WO CON Comparison: None available. CLINICAL INDICATION: Right flank pain. TECHNIQUE: Axial images through the abdomen and pelvis were obtained without intravenous contrast. Coronal and sagittal reconstructions were obtained. Dose reduction techniques were achieved by using automated exposure control and/or adjustment of mA and/or kV according to patient size and/or use of iterative reconstruction technique. FINDINGS: Please note that evaluation of the viscera/vascular structures, and sensitivity for detection of focal lesions, is limited without intravenous contrast. LOWER CHEST: The visualized portions of the lung bases are clear. LIVER: Hepatic steatosis and hepatomegaly. GALLBLADDER: Prior cholecystectomy. BILE DUCTS: Unremarkable. PANCREAS: Unremarkable. SPLEEN: Unremarkable. ADRENALS: Unremarkable. KIDNEYS/URETERS: 4 mm right proximal ureteral stone resulting in mild to moderate right hydronephrosis. Several nonobstructing left kidney stones measuring up to 6 mm. Punctate 1 mm nonobstructing right lower pole kidney stone. Small exophytic left kidney cyst on axial image 46. BLADDER: Bladder is decompressed and not well evaluated. PELVIC STRUCTURES: Prior hysterectomy. No adnexal masses. No pelvic free fluid. GI TRACT: Evaluation of bowel limited by fecal contents and lack of distention. No evidence of bowel obstruction. Normal appendix. Nonspecific fatty infiltration of the colonic wall, could suggest sequela of chronic inflammation. VASCULAR STRUCTURES: Unremarkable. LYMPH NODES: No pathologic lymphadenopathy by CT size criteria. PERITONEUM: No free air. No abscess. SOFT TISSUES: Unremarkable. OSSEOUS STRUCTURES: No acute osseous abnormality. No suspicious osseous lesions. IMPRESSION: 1. 4 mm right proximal ureteral stone resulting in mild-moderate right hydronephrosis. 2. Several nonobstructing left kidney stones measuring up to 6 mm. Punctate 1 mm nonobstructing right lower pole kidney stone. 3. Hepatic steatosis and hepatomegaly. 4. Prior cholecystectomy and hysterectomy. Electronically authenticated by: IWONA BRITT Date: 2022-02-25 19:05 Normal The [facility] ER URINE PROFILEon 2 Bilirubin Ql (U) Negative Normal NEGATIVE The [facility] Comment on above: Performed By: #### E RUR, UMICRO #### [facility] [address] [place] [address] Dr. Les Bryan Clarity (U) CLEAR Normal CLEAR The [facility] Comment on above: Performed By: #### SABINE STEVENSONICRO #### [facility] [address] [place] [address] Dr. Les Bryan Color (U) YELLOW Normal YELLOW The [facility] Comment on above: Performed By: #### SABINE STEVENSONICRO #### [facility] [address] [place] [address] Dr. Les MOY A micrscopic examination will be performed if indicated. Normal The [facility] Comment on above: Performed By: #### SABINE STEVENSONICRO #### [facility] [address] [place] [address] Dr. Les Bryan Glucose Ql (U) Negative Normal NEGATIVE The [facility] Comment on above: Performed By: #### BARBER STEVENSONRO #### [facility] [address] [place] [address] Dr. Les Bryan Hemoglobin Ql (U) LARGE Abnormal NEGATIVE The [facility] Comment on above: Performed By: #### BARBER STEVENSONRO #### [facility] [address] [place] [address] Dr. Les Bryan Ketones Ql (U) Negative Normal NEGATIVE [facility] Comment on above: Performed By: #### BARBER STEVENSONRO #### [facility] [address] [place] [address] Dr. Les Bryan LEUKOCYTES TRACE Abnormal NEGATIVE [facility] Comment on above: Performed By: #### BARBER STEVENSONRO #### [facility] [address] [place] [address] Dr. Les Bryan Nitrite Ql (U) Negative Normal NEGATIVE [facility] Comment on above: Performed By: #### SABINE STEVENSONICRO #### [facility] [address] [place] [address] Dr. Les Bryan pH (U) 7.0 [pH] Normal 5-9 The [facility] Comment on above: Performed By: #### BARBER STEVENSONRO #### [facility] [address] [place] [address] Dr. Les Bryan Protein (U) [Mass/Vol] 30 mg/dL Abnormal NEGATIVE/ TRACE [facility] Comment on above: Performed By: #### BARBER STEVENSONRO #### [facility] [address] [place] [address] Dr. Les Bryan SPEC GRAVITY 1.025 Normal 1.005-<=1.025 [facility] Comment on above: Performed By: #### BARBER STEVENSONRO #### [facility] [address] [place] [address] Dr. Les Bryan UR MICRO IND INDICATED Normal [facility] Comment on above: Performed By: #### BARBER STEVENSONRO #### [facility] [address] [place] [address] Dr. Les Bryan Urobilinogen Qn (U) 0.2 {Racquel'U}/dL Normal 0.2 - 1. 0 [facility] Comment on above: Performed By: #### RICARDO STEVENSON #### [facility] [address] [place] [address] Dr. Les Bryan LIPASEon 02-25-2022 Lipase [Catalytic activity/Vol] 82.0 U/L Normal 73.0-393.0 [facility] Comment on above: Performed By: #### [id number] #### [facility] [address] [place] [address] Dr. Les Bryan PROF 14(COMP METB)on 022 Albumin [Mass/Vol] 3.7 g/dL Normal 3.4-5.0 [facility] Comment on above: Performed By: #### [id number] #### [facility] [address] [place] [address] Dr. Les Bryan Albumin/Globulin [Mass ratio] 0.9 {ratio} Normal [facility] Comment on above: Performed By: #### 4 [id number] #### [facility] [address] [address] [address] Les Bryan ALP [Catalytic activity/Vol] 129 U/L Critically high 46-116 [facility] Comment on above: Performed By: #### 4 [id number] #### [facility] [address] [address] [address] Les Bryan ALT [Catalytic activity/Vol] 86 U/L Critically high 14-59 [facility] Comment on above: Performed By: #### 4 [id number] #### [facility] [address] [address] [address] Les Bryan Anion gap [Moles/Vol] 15.3 mmol/L Normal [facility] Comment on above: Performed By: #### 4 [id number] #### [facility] [address] [address] [address] Les Bryan AST [Catalytic activity/Vol] 51 U/L Critically high 15-37 [facility] Comment on above: Performed By: #### 4 [id number] #### [facility] [address] [address] [address] Les Bryan Bilirubin [Mass/Vol] 0.2 mg/dL Normal 0.2-1.0 [facility] Comment on above: Performed By: #### 4 [id number] #### [facility] [address] [address] [address] Les Bryan Calcium [Mass/Vol] 8.4 mg/dL Critically low 8.5-10.1 [facility] Comment on above: Performed By: #### 4 [id number] #### [facility] [address] [address] [address] Les Bryan Chloride [Moles/Vol] 103 mmol/L Normal 98-107 [facility] Comment on above: Performed By: #### 4 [id number] #### [facility] [address] [address] [address] Les Bryan CO2 [Moles/Vol] 26.2 mmol/L Normal 21.0-32.0 [facility] Comment on above: Performed By: #### 4 [id number] #### [facility] [address] [address] [address] Les Bryan Creatinine [Mass/Vol] 0.72 mg/dL Normal 0.55-1.02 [facility] Comment on above: Performed By: #### 4 [id number] #### [facility] [address] [address] [address] Les Bryan EGFR-AF GABONESE >60 Normal >=60 [facility] Comment on above: Performed By: #### 4 [id number] #### [facility] [address] [address] [address] Les Bryan EGFR-NON AF GABONESE >60 Normal >=60 [facility] Comment on above: Performed By: #### 4 [id number] #### [facility] [address] [place] [address] Dr. Les Bryan Globulin (S) [Mass/Vol] 4.2 g/dL Normal [facility] Comment on above: Performed By: #### 4 [id number] #### [facility] [address] [place] [address] Dr. Les Bryan Glucose [Mass/Vol] 121 mg/dL Critically high 74-106 [facility] Comment on above: Performed By: #### 4 [id number] #### [facility] [address] [place] [address] Dr. Les Bryan Potassium [Moles/Vol] 3.5 mmol/L Normal 3.5-5.1 [facility] Comment on above: Performed By: #### 4 [id number] #### [facility] [address] [place] [address] Dr. Les Bryan Protein [Mass/Vol] 7.9 g/dL Normal 6.1-8.2 [facility] Comment on above: Performed By: #### 4 [id number] #### [facility] [address] [place] [address] Dr. Les Bryan Sodium [Moles/Vol] 141 mmol/L Normal 136-145 [facility] Comment on above: Performed By: #### 4 [id number] #### [facility] [address] [place] [address] Dr. Les Bryan Urea nitrogen [Mass/Vol] 14.0 mg/dL Normal 7.0-18.0 The [facility] Comment on above: Performed By: #### 4 [id number] #### [facility] [address] [place] [address] Dr. Les Bryan Urea nitrogen/Creatinine [Mass ratio] 19.4 mg/mg Normal The [facility] Comment on above: Performed By: #### 4 [id number] #### [facility] [address] [place] [address] Dr. Les Bryan URINE MICROSCOPIC ONLYon BACTERIA TRACE Abnormal NONE SEEN [facility] Comment on above: Performed By: #### SABINE STEVENSONICRO #### [facility] [address] [place] [address] Dr. Les Bryan Bacteria identified Cx Nom (U) NOT INDICATED Normal [facility] Comment on above: Performed By: #### Andi GUY UMICRO #### [facility] [address] [place] [address] Dr. Les Bryan CAST NONE SEEN Normal NONE SEEN [facility] Comment on above: Performed By: #### Andi GUY UMICRO #### [facility] [address] [place] [address] Dr. Les Bryan Crystals LM Nom (Urine sed) NONE SEEN Normal NONE SEEN [facility] Comment on above: Performed By: #### Andi GUY UMICRO #### [facility] [address] [place] [address] Dr. Les Bryan Epithelial cells LM Ql (Urine sed) MODERATE Abnormal NONE SEEN /RARE The [facility] Comment on above: Performed By: #### Andi GUY UMICRO #### [facility] [address] [place] [address] Dr. Les Bryan MUCOUS NONE SEEN Normal NONE SEEN The [facility] Comment on above: Performed By: #### Andi GUY UMICRO #### [facility] [address] [place] [address] Dr. Les Bryan RBC 20-50 Abnormal 0-2 [facility] Comment on above: Result Comment: cren ated RBCs Performed By: #### RICARDO STEVENSON #### [facility] [address] [place], [place] [address] Dr. Les Bryan WBC 2-5 Abnormal NONE SEEN The [facility] Comment on above: Performed By: #### Andi GUY, RICARDO #### [facility] [address] [place], [place] [address] Dr. Les Bryan Vital Signs Date Time Vital Sign Value Performing Clinician Facility 09-13-2023 10:30-0500 Body height 162.56 cm Shae Love Other [facility] Other 09-13-2023 10:30-0500 Body mass index (BMI) [Ratio] 23.14 kg/m2 Shae Love Other [facility] Other 09-13-2023 10:30-0500 Body temperature 98.4 [degF] Shae Love Other [facility] Other 09-13-2023 10:30-0500 Body weight 61.15 kg Shae Love Other [facility] Other 09-13-2023 10:30-0500 Respiratory rate 18 /min Shae Love Other [facility] Other 09-13-2023 10:30-0500 SaO2% (BldA) [Mass fraction] 99 % Shae Love Other [facility] Other 04-21-2022 09:07-0400 Blood Pressure Location Jl FREDERICK [facility] [place] 04-21-2022 09:07-0400 Diastolic blood pressure 86 mm[Hg] Jl FREDERICK [facility] [place] 04-21-2022 09:07-0400 Heart rate 92 /min Jl YULIANAL [facility] [place] 04-21-2022 09:07-0400 Respiratory rate 16 /min Jl BRIDGESL [facility] 04-21-2022 09:07-0400 Systolic blood pressure 127 mm[Hg] Jl BRIDGESL [facility] Encounters Encounter Date Encounter Type Care Provider Facility Start: 09-13-2023 Office outpatient ne w 20 minutes Shae Love [facility] Start: 09-13-2023 End: 09-13-2023 ambulatory Shae Love [facility] Other Start: 09-13-2023 End: 09-13-2023 Patient encounter procedure 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 Shae Love Work Phone: [facility] Work Phone: Start: 10-09-2022 End: 10-10-[address] ANGELICA DE Facility:[facility] Start: 09-04-2022 End: 09-04-[address] ANGELICA DE Facility:[facility] Start: 09-01-2022 End: 09-02-[address] ANGELICA DE Facility:[facility] Start: 05-30-2022 End: 05-30-[address] ANGELICA DE Facility:[facility] Start: 05-12-2022 End: 05-12-2022 Patient encounter procedure Jl FREDERICK [facility] [place] Start: 05-03-2022 End: 05-03-2022 Patient encounter procedure Jl FREDERICK General [facility] [place] Start: 04-21-2022 End: 04-21-2022 Patient encounter procedure Jl Nieves YOLY [facility] General Surgery [place] Start: 04-20-[address] ANGELICA DE Facility :[facility] Start: 04-17-2022 End: 04-18-[address] ANGELICA DE Facility:[facility] Start: 04-05-2022 End: 04-06-[address] ANGELICA DE Facility:[facility] Start: 02-27-2022 End: 02-28-[address] ANGELICA DE Facility:[facility] Start: 02-25-2022 End: 02-25-2022 ambulatory EMILY MCDERMOTT Facility:[facility] Procedures Date Procedure Procedure Detail Performing Clinician Start: 09-13-2023 Radiologic examinati on of knee 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 Shae Love Work Phone: Start: 05-03-2022 Excision of dermatofibroma Jl YOLY Comment on above: left ankle Start: 07-08-2015 laparoscopic cholecy stectomy with intraoperative cholangiogram Jl FREDERICK Abdominal hysterectomy Sebastian munguia YOLY Bilateral complete salpingectomy Jl FREDERICK Diagnostic laparoscopy Sebastian FREDERICK Loop electrosurgical excision procedure Jl FREDERICK Payers Date Payer Category Payer Unknown [id number] 2.16.84 [id number] 1979 Unknown [id number] 2.16.84 [id number] 1979 Unknown [id number] 2.16.84 [id number] 1979 Unknown [id number] 2.16.84 [id number] 1979 Unknown [id number] 2.16.84 [id number] 1979 Unknown [id number] 2.16.84 [id number] 1979 Unknown [id number] 2.16.84 [id number] 1979 Unknown [id number] 2.16.84 [id number] 1979 Unknown [id number] 2.16.84 [id number] 1959 Self-pay 1960 Unknown [id number] Unknown [id number] 2.16.8 [id number] Social History Date Type Detail Facility Start: 04-21-2022 Tobacco smoking status Ex-smoker (fi nding) [facility] Surgery [employer] Tobacco smoking status Never [facility] [employer] Sex Assigned At Female [facility] [employer] Start: 1980 Sex Assigned At Female F [facility] Functional Status Date Assessment Result Facility 04-21-2022 Functional Status N/A [facility] General Surgery [employer] Evaluation note 09-13-2023 Note Date & Type Note Facility 09-13-2023 Evaluation note Encounter Date Diagnosis Assessment Notes Aug, Injury (ICD-10 - T14.90XA) Aug, Effusion, left knee (ICD-10 - M25.462) Knee effusion home care material was printed XR images and final report reviewed, no acute bony abnormalities. Will send in rx of Medrol dose pack to use as directed. SHASTA wrap applied in office. Encouraged RICE therapy discussed- rest extremity, avoid excessive or strenuous activity, complete activity as tolerated; ice area for 15-20 minutes at a time multiple times a day, ensure thin cloth barrier between skin and ice; SHASTA wrap area; keep extremity elevated. Advised patient to use OTC NSAIDs/Tylenol as directed as needed for discomfort. Instructed patient to follow up with PCP or ortho if sx do not improve in the next 5-7 days. Immediate eval by ER for warning s/sx as discussed. Patient verbalizes understanding and is agreeable to treatment plan [facility] [employer] Other Clinical Note 04-21-2022 Note Date & Type Note Facility 04-21-2022 Note Chief Complaint consultation for nevus HPI Staff 41 year old female presents on consultation from Dr. De for non-healing lesion outer left ankle. Noted small nodule one year ago that initially started small and itchy. Itching quickly resolved. Area has become larger. Tender when pressure applied. Occasionally bleeds. History of Present Illness 41 yo female with h/o htn, hypothyroidism, anxiety, referred for changing skin lesion left ankle; lesion started as small red area 1 year ago, possible bug bite; has increased in size, painful at times, no drainage; central scab; no pigmentation change; no personal or fmhx of skin cancer; on Diclofenac prn, no asa; no tobacco use. Review of Systems PHQ Score Initial Depression Screen Score: 1 ROS - Provider Constitutional: no fever, no sweats, no weight loss. Eyes: no glasses, no blurred vision, no visual loss. ENMT: no dentures, no hoarseness, no swallowing difficulties, no hearing loss, no ear infection(s), no nose bleeds. Cardiovascular: normal blood pressure, no chest pain, regular heartbeat, no heart murmur. Respiratory: no shortness of breath, no cough, no asthma, no wheezing. Gastrointestinal: no nausea, no vomiting, no diarrhea, no constipation, no blood in stool, no change in bowel habits, no abdominal pain, no hepatitis. Genitourinary: no kidney stones, no urine infection, no dysuria. Musculoskeletal: no pain, no weakness. Skin: no changing moles, no rash, no skin lumps. Neurologic: no seizures, no epilepsy, no headache. Psychiatric: no emotional or psychiatric problem. Heme/Lymph: no bleeding problems, no anemia, no blood clots, no transfusions. Allergy/Immunologic: no swollen lymph nodes/glands, no IV drug abuse. Other: Additional ROS info: Except as noted in the above Review of Systems and in the History of Present Illness, all other systems have been reviewed and are negative or noncontributory. Physical Exam Vitals & Measurements HR: 92(Peripheral) RR: 16 BP: 127/86 HT: 163.1 cm HT: 163.1 cm WT: 77.2 kg WT: 77.2 kg BMI: 29.02 HEENT: normal conjunctiva, sclera clear, no scleral icterus, EOM intact, PERRLA, oral mucosa moist without lesions. Neck: trachea midline, no mass, symmetric, no thyromegaly or nodules, no adenopathy Lymphatic: no cervical adenopathy, Musculoskeletal: normal gait, digits and nails without infection, nodes, cyanosis, clubbing. Skin: no rashes, no lesions, no ulcers, left lateral ankle with 7 mm raised, round, firm lesion, central scab, no pigmentation change. Psychiatric/Neuro: oriented to time, place, person, judgement normal, affect appropriate for age, insight intact, no focal deficits. Tests: , review of old records completed, Discussed surgical options, risks, and possible complications with patient. Assessment/Plan 1. Neoplasm of uncertain behavior of skin of ankle (D48.5: Neoplasm of uncertain behavior of skin) plan excisional biopsy under local anesthesia in the office, for definitive diagnosis and treatment; informed consent obtained. Follow-up No qualifying data available Problem List/Past Medical History Ongoing Anxiety BMI 29.0-29.9,adult Endometriosis History of gastritis History of nephrolithiasis HTN (hypertension) Hypothyroidism Neoplasm of uncertain behavior of skin of ankle Historical Migraine Psoriasis Procedure/Surgical History laparoscopic cholecystectomy with intraoperative cholangiogram (07/08/2015), Abdominal hysterectomy, Diagnostic laparoscopy, LEEP, Total bilateral salpingectomy. Medications desvenlafaxine 100 mg Tab-, 100 mg= 1 tab(s), Oral, Daily diclofenac sodium 75 mg Oral EC Tab, 75 mg= 1 tab(s), Oral, BID hydrOXYzine pamoate 25 mg Cap, 25 mg= 1 cap(s), Oral, QID, PRN Protonix 40 mg Tab-DR, 40 mg= 1 tab(s), Oral, Daily SEROquel 25 mg Tab, 25 mg= 1 tab(s), Oral, Daily valacyclovir 500 mg Tab, 500 mg= 1 tab(s), Oral, Daily Allergies Latex (Rash) sulfamethoxazole-trimethoprim (Hives) Social History Alcohol - No Risk, 07/09/2015 Employment/School - Medium Risk, 07/09/2015 Exercise - Does not exercise, 07/09/2015 Home/Environment - No Risk, 07/09/2015 Nutrition/Health - No Risk, 07/09/2015 Sexual - Low Risk, 07/09/2015 Substance Abuse - Denies Substance Abuse, 04/21/2022 Tobacco - No Risk, 07/09/2015 Former smoker, quit more than 30 days ago Tobacco Use:. Never Smokeless Tobacco Use:. Cigarettes, 0.5 per day. Started age 16.0 Years. Stopped age 27 Years., 04/21/2022 Family History Alcoholism: Father. Hyperlipidemia: Mother. Hypothyroidism: Mother. Primary malignant neoplasm of bladder: Father. [facility] Comment on above: Result Comment: Elec tronically Signed By: Jl FREDERICK MD\.br\Date and Time Signed: 04/21/22 09:48 EDT Evaluation + Plan note Note Date & Type Note Facility Evaluation + Plan note Future Appointments Appointment Date:05/03/2022 03:00:00 PM Scheduled Provider:Jl FREDERICK MD Location:[facility] Appointment Type: Procedure 30 [facility] [place] Evaluation + Plan note Note Date & Type Note Facility Evaluation + Plan note Future Appointments Appointment Date:05/12/2022 03:40:00 PM Scheduled Provider:Jl FREDERICK MD Location:[facility] Appointment Type: Post Op 15 [facility] Surgery [place] Evaluation note Note Date & Type Note Facility Evaluation note No assessment information availa [facility] Work Phone: History general Narrative - Reported Note Date & Type Note Facility History general Narrative - Reported Type Medical History Anxiety disorder Medical History chronic depression Medical History thyriod Surgical History LEAP [employer] Other Hospital course Narrative Note Date & Type Note Facility Hospital course Narrative No data available for this section [facility] Discharge instructions Note Date & Type Note Facility Hospital Discharge instructions No data available for this section [facility] Progress note Note Date & Type Note Facility Progress note No data available for this section [facility] [place] Summary Purpose Family History No Family History Records FoundNo Family History Records FoundNo Family History Records Found Advance Directives No Advanced Directives Records FoundNo Advanced Directives Records FoundNo Advanced Directives Records Found Additional Source Comments Care Team (unrecognized sect ion and content) Team Status: Inactive Member Role Status Dates Shae Love APRN Attending Provider Active INFORMATION SOURCE (unrecogn ized section and content) DATE CREATED AUTHOR 05/16/2022 [facility] DATE CREATED AUTHOR AUTHOR'S ORGANIZ ATION 10/20/2022 [facility] DATE CREATED AUTHOR AUTHOR'S ORGANIZ ATION 12/07/2023 [facility] REASON FOR VISIT (unrecogniz ed section and content) FELL, LEFT KNEE, NOT SURE WH AT SHE DID TO IT, CAN'T PUT WEIGHT ON IT Goals (unrecognized section and content) Goals may be documented in a n alternate section FOR RECORDS PERTAINING TO PATIENTS WHO ARE OR HAVE BEEN ENROLLED IN A CHEMICAL DEPENDENCY/SUBSTANCEABUSE PROGRAM, SOME INFORMATION MAY BE OMITTED. This clinical summary was aggregated from multiple sources. Caution should be exercised in using it in the provision of clinical care. This summary normalizes information from multiple sources, and as a consequence, information in this document may materially change the coding, format and clinical context of patient data. In addition, data may be omitted in some cases. CLINICAL DECISIONS SHOULD BE BASED ON THE PRIMARY CLINICAL RECORDS. [facility] [employer] [facility]. provides no warranty or guarantee of the accuracy or completeness of information in this document.
[2024-01-17 14:31] LABS: Free T4 0.71 ng/dL (0.76-1.46)
== END 2024-01-17 12:31 | disposition home or self-care (01) ==
LOC: LAB 12:35
PROVIDERS: PCP Family Medicine; Visit Provider Family Medicine
DX: R79.89 Other specified abnormal findings of blood chemistry (principal)
CPT/HCPCS: 36415; 84439; 84443

== ENCOUNTER 2024-03-12 16:03 | Outpatient (OUT) | payer BC, SELFPAY ==
--- OUTSIDE RECORDS SUMMARY | 2024-03-12 16:11 | XMS_ITS | CCD ---
Author Organization [employer] Care Team Providers Care Asphalt Coater Name Role Phone Angelica De Primary Care Physician [phone] DR ANGELICA DE Primary Care Unavailable BEA [...] Shae Love Unavailable RUBY Love Attending Provider Shae Love Attending Unavailable Shae Love Admitting Unavailable Allergies Allergy Classification Reported Allergen(s) Allergy Type Date of Onset Reaction(s) Facility (5 sources) Latex; Translations: [Latex] Drug allergy 3 Eruption of skin (disorder), rash [facility] (4 sources) Sulfamethoxazole / Trimethoprim; Translations: [sulfamethoxazole-tr imethoprim] Drug Allergy Weal (disorder), hives [facility] (2 sources) natural latex rubber Drug allergy (disorder) [facility] Repository (2 sources) Sulfamethoxazole / Trimethoprim Drug Allergy [facility] (1 source) Sulfamethoxazole Drug Allergy 3 [facility] Repository (1 source) Trimethoprim Drug Allergy 3 [facility] Repository Medications Current Medications Medication Drug Class(es) [...] (1 source) l-Thyroxine Levothyroxine So dium Not-Taking [place] (1 source) [place] Not- Taking Problems Active Problems Problem Classification [...] LT 4V*on 09-13-2023 XR knee LT 4V* [facility] [employer] Other XR knee LT 4V* [facility] [employer] Other XR knee LT 4V* [address] [facility] [employer] Other XR knee LT 4V* [place] [address] No [facility] [employer] Other XR knee LT 4V* XRay Report [employer] Other XR knee LT 4V* Signed [employer] Other XR knee LT 4V* Patient: Josephine Herndon MR#: [id number] [employer] Other XR knee LT 4V* 8 [employer] Other XR knee LT 4V* : 1980 Acct:[id number] [employer] Other XR knee LT 4V* Age/Sex: 43 / F ADM Date: 09/13/23 [employer] Other XR knee LT 4V* Loc: XDUCLY Room: Type: REG CLI [employer] Other XR knee LT 4V* Attending Dr: Shae Love [facility] [employer] Other XR knee LT 4V* Copies to: Shae Love DOUGH MIXING MACHINE OPERATOR [employer] Other XR knee LT 4V* Ordering Provider: Shae Love APRN [employer] Other XR knee LT 4V* Date of Service: 09/13/23 [employer] Other XR knee LT 4V* XR/XR knee LT 4V*: Injury [employer] Other XR knee LT 4V* XR knee LT 4V* 09/13/2023 10:51 AM [employer] Other XR knee LT 4V* SIGNS AND SYMPTOMS: Twisting injury to left knee with pain and swelling medially [employer] Other XR knee LT 4V* PROTOCOL: Frontal, lateral, and oblique radiographs of the left knee [employer] Other XR knee LT 4V* COMPARISON: None [place] [employer] Other XR knee LT 4V* FINDINGS: [employer] Other XR knee LT 4V* The joint spaces are preserved. There is a moderate joint effusion. There is no evidence of fracture [employer] Other XR knee LT 4V* or dislocation. No significant soft tissue swelling. [employer] Other XR knee LT 4V* XR/XR knee LT 4V* [employer] Other XR knee LT 4V* IMPRESSION: [employer] Other XR knee LT 4V* No fracture. [employer] Other XR knee LT 4V* There is a moderate joint effusion. [employer] Other XR knee LT 4V* Impression dictated by: Donaot Rockwell M.D.09/13/2023 11:19 AM [employer] Other XR knee LT 4V* Dictation Location: [place] [address] [employer] Other XR knee LT 4V* Transcribed By: PWS 09/13/23 [facility] [employer] Other XR knee LT 4V* Dictated By: Donato Rockwell II, MD 09/13/23 [facility] [employer] Other XR knee LT 4V* Signed By: [employer] Other XR knee LT 4V* 09/13/23 [facility] [employer] Other XR knee LT 4V* [facility] [place] [address] [place] [address] XRay Report Signed Patient: Josephine Herndon MR#: [id number] 8 : 1980 Acct:[id number] Age/Sex: 43 / F ADM Date: 09/13/23 Loc: XDUCLY Room: Type: [facility] Attending Dr: Shae Love APRN Copies to: Shae Love APRN Ordering Provider: Shae L Love, DOUGH MIXING MACHINE OPERATOR Date of Service: 09/13/23 XR/XR knee LT [...] Donato Rockwell M.D.09/13/2023 11:19 AM Dictation Location: [place] [address] Transcribed By: [facility] 09/13/23 111 Dictated By: Donato Rockwell II, MD 09/13/23 1118 Signed By: 09/13/23 [address] [facility] [address] CHEST WO CONon 10-10-2022 CT [...] AMANDA CASSIDY Date: 2022-10-10 10:35 Normal [facility] Covid-19 PCR (CVDTB)on SARS-CoV-2 (COVID-19) RNA RAYMOND+probe Ql (Unsp spec) Not detected Normal NOT DETECTED [facility] Comment on above: Result Comment: When diagnostic [...] for this test is supported by the [place] Master of Health and Human Service's declaration that [...] longer be used). Performed By: #### C [facility] #### [facility] [address] [place] [address] CHEST WO CONon [...] by: BELIA HENDRICKS Date: 2022-09-01 09:55 Normal [facility] MG MAMM SCREEN 3D GUSTAVO CADon 09-01-2022 MG MAMM SCREEN 3D GUSTAVO CAD Patient: JOSEPHINE HERNDON Exam Date: 09/01/2022 : 1980 Gender:F Ordering : DR ANGELICA DE . Admission #: [id number] Family : Order #: [id number] CLICK HERE TO VIEW EXAM RADIOLOGY REPORT [...] bladder cancer at age 59. LOCATION: [facility] BREAST COMPOSITION: Scattered areas fibroglandular density. FINDINGS: [...] Hendricks MD on 09/01/2022 at 09:32 Normal [facility] PAP ACOG PANEL 2: 21 to 29on 06-02-2022 . . Normal [facility] Comment on above: Result Comment: Perf ormed at: WB Performed By: #### [id number] #### [facility] [address] [place] [address] Dr. Les Bryan Age Gdln ACOG Testing 30-65 Normal [facility] Comment on above: Performed By: #### [id number] #### [facility] [address] [address] [address] Les Bryan DIAGNOSIS: Comment Normal [facility] Comment on above: Result Comment: NEGA TIVE FOR INTRAEPITHELIAL LESION OR MALIGNANCY. Performed at: WB Performed By: #### [id number] #### [facility] [address] [address] [address] Les Bryan HPV Aptima Negative Normal Negative [facility] Comment on above: Result Comment: This nucleic acid amplification test detects fourteen high-risk HPV types (16,18,31,33,35,39,45,51,52,56,58,59,66,68) without differentiation. Performed at: =G Performed By: #### 4 [id number] #### [facility] [address] [address] [address] Les Bryan Methodology: Comment Normal [facility] Comment on above: Result Comment: This liquid based ThinPrep(R) pap test was screened with the use of an image guided system. Performed at: WB Performed By: #### 4 [id number] #### [facility] [address] [address] [address] Les Bryan Note: Comment Normal [facility] Comment on above: Result Comment: The Pap smear is a screening test designed to aid in the detection of premalignant and malignant conditions of the uterine cervix. It is not a diagnostic procedure and should not be used as the sole means of detecting cervical cancer. Both false-positive and false-negative reports do occur. . Performed at: WB Performed By: #### [id number] #### [facility] [address] [address] [address] Les Bryan Performed by: Comment Normal [facility] Comment on above: Result Comment: Bella Cuevas, Tab Machine Operator (ASCP) Performed at: WB Performed By: #### [id number] #### [facility] [address] [address] [address] Les Bryan Specimen adequacy: Comment Normal [facility] Comment on above: Result Comment: Sati sfactory for evaluation. Endocervical and/or squamous metaplastic cells (endocervical component) are present. Performed at: WB Performed By: #### [id number] #### [facility] [address] [place] [address] Dr. Les Bryan General Surgery Office/Clini c [...] Primary malignant neoplasm of bladder: Father. Normal [facility] Comment on above: Result Comment: Elec tronically [...] longer receiving treatment for. Migraine Psoriasis Alvaro [facility] General Surgery Office/Clini c Noteon 05-12-2022 General [...] Primary malignant neoplasm of bladder: Father. Normal [facility] Comment on above: Result Comment: Elec tronically Signed By: YOLY AKBAR, Jl Nieves\.br\Date and Time Signed: 05/12/22 16:00 EDT Pathology Noteon 05-08-2022 Pathology Note [id number] Normal [facility] Ambulatory Visit Summaryon 0 05-03-2022 Ambulatory Visit [...] Jl FREDERICK MD Where: General Surgery Nill/Said [facility] Ambulatory Visit Summaryon 0 04-21-2022 Ambulatory Visit [...] Jl FREDERICK MD Where: General Surgery Nill/Said [facility] HEPATITIS PANEL, ACUTEon HBsAg Screen Negative Normal Negative [facility] Comment on above: Performed By: #### H EPACUT #### [facility] [address] [address] [address] Les Bryan HCV AB 0.2 s/co ratio Normal 0.0-0.9 [facility] Comment on above: Performed By: #### H EPACUT #### [facility] [address] [address] [address] Les Bryan Hep A Ab, IgM Negative Normal Negative [facility] Comment on above: Performed By: #### H EPACUT #### [facility] [address] [place] [address] Dr. Les Bryan Hep B Core Ab, IgM Negative Normal Negative [facility] Comment on above: Performed By: #### H EPACUT #### [facility] [address] [place] [address] Dr. Les Bryan Interpretation: Comment Normal [facility] Comment on above: Result Comment: Nega tive Not infected with HCV, unless recent infection is suspected or other evidence exists to indicate HCV infection. Performed By: #### H EPACUT #### [facility] [address] [place] [address] Dr. Les Bryan INSULINon 04-18-2022 Insulin 18.8 uIU/mL Normal 2.6-24.9 [facility] Comment on above: Performed By: #### I NSULIN #### [facility] [address] [place] [address] Dr. Les Bryan BILIRUBIN CONJUGATED (DIRECT )on 04-17-2022 BILI, CONJUGATED 0.1 mg/dL Normal 0.0-0.2 [facility] Comment on above: Performed By: #### RICARDO STEVENSON #### [facility] [address] [place] [address] Dr. Les Bryan BNPon 04-17-2022 Natriuretic peptide B (Bld) [Mass/Vol] 12.0 pg/mL Normal <=450.0 [facility] Comment on above: Performed By: #### RICARDO STEVENSON #### [facility] [address] [place] [address] Dr. Les Bryan CBC AUTO DIFFon 04-17-2022 BASO # 0.1 103/ul Normal 0.0-0.1 [facility] Comment on above: Performed By: #### C BC #### [facility] [address] [place] [address] Dr. Les Bryan Basophils/100 WBC (Bld) 0.6 % Normal 0.2-2.0 [facility] Comment on above: Performed By: #### C BC #### [facility] [address] [address] [address] Les Bryan EO # 0.3 103/ul Normal 0.0-0.7 [facility] Comment on above: Performed By: #### C BC #### [facility] [address] [place] [address] Dr. Les Bryan Eosinophils/100 WBC (Bld) 3.0 % Normal 0.9-7.0 [facility] Comment on above: Performed By: #### C BC #### [facility] [address] [place] [address] Dr. Les Bryan Erythrocyte distribution width (RBC) [Ratio] 13.2 % Normal 11.0-15.0 [facility] Comment on above: Performed By: #### C BC #### [facility] [address] [place] [address] Dr. Les Bryan Hematocrit (Bld) [Volume fraction] 40.8 % Normal 36.0-48.0 [facility] Comment on above: Performed By: #### C BC #### [facility] [address] [place] [address] Dr. Les Bryan Hemoglobin (Bld) [Mass/Vol] 13.4 g/dL Normal 12.0-16.0 [facility] Comment on above: Performed By: #### C BC #### [facility] [address] [place] [address] Dr. Les Bryan IG # 0.07 10e3/ul Critically high 0.00-0.03 [facility] Comment on above: Performed By: #### C BC #### [facility] [address] [place] [address] Dr. Les Bryan IG % 0.8 % Critically high 0.0-0.5 [facility] Comment on above: Performed By: #### C BC #### [facility] [address] [place] [address] Dr. Les Bryan LYMPH # 2.8 103/ul Normal 1.2-3.8 [facility] Comment on above: Performed By: #### C BC #### [facility] [address] [place] [address] Dr. Les Bryan Lymphocytes/100 WBC (Bld) 31.7 % Normal 20.5-60.0 [facility] Comment on above: Performed By: #### C BC #### [facility] [address] [place] [address] Dr. Les Bryan MANUAL DIFF REQ NO Normal [facility] Comment on above: Performed By: #### C BC #### [facility] [address] [place] [address] Dr. Les Bryan MCH (RBC) [Entitic mass] 29.5 pg Normal 26.7-34.0 [facility] Comment on above: Performed By: #### C BC #### [facility] [address] [place] [address] Dr. Les Bryan MCHC (RBC) [Mass/Vol] 32.8 g/dL Normal 29.9-35.2 [facility] Comment on above: Performed By: #### C BC #### [facility] [address] [place] [address] Dr. Les Bryan MCV (RBC) [Entitic vol] 89.9 fL Normal 81.0-99.0 [facility] Comment on above: Performed By: #### C BC #### [facility] [address] [place] [address] Dr. Les Bryan MONO # 0.4 103/ul Normal 0.3-0.8 [facility] Comment on above: Performed By: #### C BC #### [facility] [address] [place] [address] Dr. Les Bryan Monocytes/100 WBC (Bld) 4.7 % Normal 1.7-12.0 [facility] Comment on above: Performed By: #### C BC #### [facility] [address] [place] [address] Dr. Les Bryan NEUT # 5.3 103/ul Normal 1.4-6.5 [facility] Comment on above: Performed By: #### C BC #### [facility] [address] [address] [address] Les Bryan Neutrophils/100 WBC (Bld) 59.2 % Normal 43.0-75.0 [facility] Comment on above: Performed By: #### C BC #### [facility] [address] [address] [address] Les Bryan Platelet mean volume (Bld) [Entitic vol] 9.1 fL Critically low 9.5-13.5 [facility] Comment on above: Performed By: #### C BC #### [facility] [address] [address] [address] Les Bryan PLT 309 103/ul Normal 150-450 [facility] Comment on above: Performed By: #### C BC #### [facility] [address] [place] [address] Dr. Les Bryan RBC 4.54 106/ul Normal 4.20-5.40 [facility] Comment on above: Performed By: #### C BC #### [facility] [address] [address] [address] Les Bryan WBC 8.9 103/ul Normal 4.0-11.0 [facility] Comment on above: Performed By: #### C BC #### [facility] [address] [place] [address] Dr. Les Bryan FREE T3on 04-17-2022 FREE T3 2.02 pg/mlL Critically low 2.18-3.98 [facility] Comment on above: Performed By: #### RICARDO STEVENSON #### [facility] [address] [address] [address] Les Bryan FREE THYROXINE INDEX T7on FTI 2.07 Normal 1.30-4.50 [facility] Comment on above: Performed By: #### RICARDO STEVENSON #### [facility] [address] [address] [address] Les Bryan T3U 30.0 % Normal 30.0-39.0 [facility] Comment on above: Performed By: #### RICARDO STEVENSON #### [facility] [address] [address] [address] Les Bryan T4 [Mass/Vol] 6.90 ug/dL Normal 4.80-13.90 [facility] Comment on above: Performed By: #### RICARDO STEVENSON #### [facility] [address] [address] [address] Les Bryan GLYCOHEMOGLOBIN A1Con 2021 ADA RECOMMENDATION SEE BELOW Normal [facility] Comment on above: Result Comment: ADA RECOMMENDED LIMIT 4.0 - 6.0 ADA THERAPEUTIC TARGET < 7.0 ACTION SUGGESTED > 7.0 Performed By: #### A 1C #### [facility] [address] [place] [address] Dr. Les Bryan Glucose [Mass/Vol] 120 mg/dL Normal [facility] Comment on above: Performed By: #### A 1C #### [facility] [address] [place] [address] Dr. Les Bryan HbA1c (Bld) [Mass fraction] 5.8 % Normal 4.5-6.2 [facility] Comment on above: Performed By: #### A 1C #### [facility] [address] [place] [address] Dr. Les Bryan IRONon 04-17-2022 Iron [Mass/Vol] 66.0 ug/dL Normal 50.0-170.0 [facility] Comment on above: Performed By: #### RICARDO STEVENSON #### [facility] [address] [place] [address] Dr. Les Bryan LIPID PROFILEon 04-17-2022 CHOL-HDL RATIO NORM SEE BELOW Normal [facility] Comment on above: Result Comment: 3.3 - 4.4 LOW RISK 4.4 - 7.1 AVERAGE RISK 7.1 - 11.0 MODERATE RISK >11.0 HIGH RISK Performed By: #### RICARDO STEVENSON #### [facility] [address] [place] [address] Dr. Les Bryan Cholesterol [Mass/Vol] 244 mg/dL Critically high <=200 [facility] Comment on above: Performed By: #### Andi GUY UMICRO #### [facility] [address] [address] [address] Les Bryan Cholesterol in HDL [Mass/Vol] 55 mg/dL Normal 40-60 [facility] Comment on above: Performed By: #### Andi GUY UMICRO #### [facility] [address] [address] [address] Les Bryan Cholesterol in LDL [Mass/Vol] 155.4 mg/dL Normal [facility] Comment on above: Performed By: #### Andi GUY UMICRO #### [facility] [address] [address] [address] Les Bryan Cholesterol.total/Ch olesterol in HDL [Mass ratio] 4.4 {ratio} Normal [facility] Comment on above: Performed By: #### Andi GUY UMICRO #### [facility] [address] [place] [address] Dr. Les Bryan HDL NORMAL > or = 60 mg/dl - LOW CARDIOVASCULAR RISK <40 mg/dl - HIGH CARDIOVASCULAR RISK Normal [facility] Comment on above: Performed By: #### Andi GUY UMICRO #### [facility] [address] [address] [address] Les Bryan LDL CALC NORMAL SEE BELOW Normal [facility] Comment on above: Result Comment: <100 mg/dl OPTIMAL 100 - 129 mg/dl NEAR OR ABOVE OPTIMAL 130 - 159 mg/dl BORDERLINE HIGH 160 - 189 mg/dl HIGH >190 mg/dl VERY HIGH Performed By: #### Andi GUY UMICRO #### [facility] [address] [place] [address] Dr. Les Bryan Triglyceride [Mass/Vol] 168 mg/dL Critically high <=150 [facility] Comment on above: Performed By: #### Anid GUY UMICRO #### [facility] [address] [address] [address] Les Bryan VLDL CALC 33.6 mg/dL Normal [facility] Comment on above: Performed By: #### Andi GUY UMICRO #### [facility] [address] [place] [address] Dr. Les Bryan PROF 14(COMP METB)on 022 Albumin [Mass/Vol] 3.9 g/dL Normal 3.4-5.0 [facility] Comment on above: Performed By: #### Andi GUY, UMICRO #### [facility] [address] [place] [address] Dr. Les Bryan Albumin/Globulin [Mass ratio] 0.9 {ratio} Normal [facility] Comment on above: Performed By: #### Andi GUY UMICRO #### [facility] [address] [place] [address] Dr. Les Bryan ALP [Catalytic activity/Vol] 137 U/L Critically high 46-116 [facility] Comment on above: Performed By: #### Andi GUY UMICRO #### [facility] [address] [place] [address] Dr. Les Bryan ALT [Catalytic activity/Vol] 104 U/L Critically high 14-59 [facility] Comment on above: Performed By: #### Andi GUY UMICRO #### [facility] [address] [place] [address] Dr. Les Bryan Anion gap [Moles/Vol] 13.3 mmol/L Normal [facility] Comment on above: Performed By: #### Andi GUY UMICRO #### [facility] [address] [place] [address] Dr. Les Bryan AST [Catalytic activity/Vol] 59 U/L Critically high 15-37 [facility] Comment on above: Performed By: #### Andi GUY UMICRO #### [facility] [address] [place] [address] Dr. Les Bryan Bilirubin [Mass/Vol] 0.3 mg/dL Normal 0.2-1.0 [facility] Comment on above: Performed By: #### Andi GUY, UMICRO #### [facility] [address] [place] [address] Dr. Les Bryan Calcium [Mass/Vol] 9.0 mg/dL Normal 8.5-10.1 [facility] Comment on above: Performed By: #### RICARDO STEVENSON #### [facility] [address] [place] [address] Dr. Les Bryan Chloride [Moles/Vol] 104 mmol/L Normal 98-107 [facility] Comment on above: Performed By: #### RICARDO STEVENSON #### [facility] [address] [place] [address] Dr. Les Bryan CO2 [Moles/Vol] 25.0 mmol/L Normal 21.0-32.0 [facility] Comment on above: Performed By: #### RICARDO STEVENSON #### [facility] [address] [place] [address] Dr. Les Bryan Creatinine [Mass/Vol] 0.70 mg/dL Normal 0.55-1.02 [facility] Comment on above: Performed By: #### RICARDO STEVENSON #### [facility] [address] [place] [address] Dr. Les Bryan EGFR-AF [place] 111 mL/min/1.73m2 Normal >=60 [facility] Comment on above: Performed By: #### RICARDO STEVENSON #### [facility] [address] [place] [address] Dr. Les Bryan EGFR-NON AF [place] 92 mL/min/1.73m2 Normal >=60 [facility] Comment on above: Performed By: #### BARBER STEVENSONRO #### [facility] [address] [place] [address] Dr. Les Bryan Globulin (S) [Mass/Vol] 4.3 g/dL Normal [facility] Comment on above: Performed By: #### RICARDO STEVENSON #### [facility] [address] [place] [address] Dr. Les Bryan Glucose [Mass/Vol] 104 mg/dL Normal 74-106 [facility] Comment on above: Performed By: #### RICARDO STEVENSON #### [facility] [address] [place] [address] Dr. Les Bryan Potassium [Moles/Vol] 4.3 mmol/L Normal 3.5-5.1 [facility] Comment on above: Performed By: #### Andi GUY, UMICRO #### [facility] [address] [place] [address] Dr. Les Bryan Protein [Mass/Vol] 8.2 g/dL Normal 6.4-8.2 [facility] Comment on above: Performed By: #### Andi GUY, UMICRO #### [facility] [address] [place] [address] Dr. Les Bryan Sodium [Moles/Vol] 138 mmol/L Normal 136-145 [facility] Comment on above: Performed By: #### Andi GUY UMICRO #### [facility] [address] [place] [address] Dr. Les Bryan Urea nitrogen [Mass/Vol] 10.0 mg/dL Normal 7.0-18.0 [facility] Comment on above: Performed By: #### Andi GUY UMICRO #### [facility] [address] [place] [address] Dr. Les Bryan Urea nitrogen/Creatinine [Mass ratio] 14.3 mg/mg Normal [facility] Comment on above: Performed By: #### Andi GUY UMICRO #### [facility] [address] [place] [address] Dr. Les Bryan TSHon 04-17-2022 TSH 4.067 uIU/mL Critically high 0.358-3.740 [facility] Comment on above: Performed By: #### T SH, DBIL, BNP, FT3, T7, LIPID, CMP #### [facility] [address] [place] [address] Dr. Les Bryan INSULINon 04-06-2022 Insulin 34.6 uIU/mL Critically high 2.6-24.9 [facility] Comment on above: Performed By: #### Andi GUY UMICRO #### [facility] [address] [place] [address] Dr. Les Bryan Physician Referralon 022 Physician Referral [id number] Normal [facility] T4 LABCORPon 04-06-2022 T4 [Mass/Vol] 6.7 ug/dL Normal 4.5-12.0 [facility] Comment on above: Performed By: #### [id number] #### [facility] [address] [place] [address] Dr. Les Bryan BNPon 04-05-2022 Natriuretic peptide B (Bld) [Mass/Vol] 18.0 pg/mL Normal <=450.0 [facility] Comment on above: Performed By: #### E RICARDO GUY #### [facility] [address] [place] [address] Dr. Les Bryan CBC AUTO DIFFon 04-05-2022 BASO # 0.1 103/ul Normal 0.0-0.1 [facility] Comment on above: Performed By: #### [id number] #### [facility] [address] [place] [address] Dr. Les Bryan Basophils/100 WBC (Bld) 0.6 % Normal 0.2-2.0 [facility] Comment on above: Performed By: #### [id number] #### [facility] [address] [place] [address] Dr. Les Bryan EO # 0.2 103/ul Normal 0.0-0.7 [facility] Comment on above: Performed By: #### 4 [id number] #### [facility] [address] [place] [address] Dr. Les Bryan Eosinophils/100 WBC (Bld) 1.9 % Normal 0.9-7.0 [facility] Comment on above: Performed By: #### 4 [id number] #### [facility] [address] [place] [address] Dr. Les Bryan Erythrocyte distribution width (RBC) [Ratio] 13.3 % Normal 11.0-15.0 [facility] Comment on above: Performed By: #### 4 [id number] #### [facility] [address] [place] [address] Dr. Les Bryan Hematocrit (Bld) [Volume fraction] 39.1 % Normal 36.0-48.0 [facility] Comment on above: Performed By: #### 4 [id number] #### [facility] [address] [place] [address] Dr. Les Bryan Hemoglobin (Bld) [Mass/Vol] 13.2 g/dL Normal 12.0-16.0 [facility] Comment on above: Performed By: #### 4 [id number] #### [facility] [address] [place] [address] Dr. Les Bryan IG # 0.08 10e3/ul Critically high 0.00-0.03 [facility] Comment on above: Performed By: #### 4 [id number] #### [facility] [address] [place] [address] Dr. Les Bryan IG % 0.8 % Critically high 0.0-0.5 [facility] Comment on above: Performed By: #### 4 [id number] #### [facility] [address] [place] [address] Dr. Les Bryan LYMPH # 3.0 103/ul Normal 1.2-3.8 [facility] Comment on above: Performed By: #### 4 [id number] #### [facility] [address] [place] [address] Dr. Les Bryan Lymphocytes/100 WBC (Bld) 31.4 % Normal 20.5-60.0 [facility] Comment on above: Performed By: #### [id number] #### [facility] [address] [place] [address] Dr. Les Bryan MANUAL DIFF REQ NO Normal [facility] Comment on above: Performed By: #### [id number] #### [facility] [address] [place] [address] Dr. Les Bryan MCH (RBC) [Entitic mass] 30.1 pg Normal 26.7-34.0 [facility] Comment on above: Performed By: #### [id number] #### [facility] [address] [place] [address] Dr. Les Bryan MCHC (RBC) [Mass/Vol] 33.8 g/dL Normal 29.9-35.2 [facility] Comment on above: Performed By: #### 4 [id number] #### [facility] [address] [place] [address] Dr. Les Bryan MCV (RBC) [Entitic vol] 89.1 fL Normal 81.0-99.0 [facility] Comment on above: Performed By: #### 4 [id number] #### [facility] [address] [place] [address] Dr. Les Bryan MONO # 0.6 103/ul Normal 0.3-0.8 [facility] Comment on above: Performed By: #### 4 [id number] #### [facility] [address] [place] [address] Dr. Les Bryan Monocytes/100 WBC (Bld) 6.1 % Normal 1.7-12.0 [facility] Comment on above: Performed By: #### 4 [id number] #### [facility] [address] [place] [address] Dr. Les Bryan NEUT # 5.6 103/ul Normal 1.4-6.5 [facility] Comment on above: Performed By: #### 4 [id number] #### [facility] [address] [place] [address] Dr. Les Bryan Neutrophils/100 WBC (Bld) 59.2 % Normal 43.0-75.0 [facility] Comment on above: Performed By: #### 4 [id number] #### [facility] [address] [place] [address] Dr. Les Bryan Platelet mean volume (Bld) [Entitic vol] 9.0 fL Critically low 9.5-13.5 [facility] Comment on above: Performed By: #### 4 [id number] #### [facility] [address] [place] [address] Dr. Les Bryan PLT 286 103/ul Normal 150-450 [facility] Comment on above: Performed By: #### 4 [id number] #### [facility] [address] [place] [address] Dr. Les Bryan RBC 4.39 106/ul Normal 4.20-5.40 [facility] Comment on above: Performed By: #### 4 [id number] #### [facility] [address] [place] [address] Dr. Les Bryan WBC 9.5 103/ul Normal 4.0-11.0 [facility] Comment on above: Performed By: #### 4 [id number] #### [facility] [address] [place] [address] Dr. Les Bryan FREE T3on 04-05-2022 FREE T3 2.73 pg/mlL Normal 2.18-3.98 [facility] Comment on above: Performed By: #### RICARDO STEVENSON #### [facility] [address] [place] [address] Dr. Les Bryan FREE THYROXINE INDEX T7on FTI 2.08 Normal 1.30-4.50 [facility] Comment on above: Performed By: #### RICARDO STEVENSON #### [facility] [address] [place] [address] Dr. Les Bryan T3U 31.0 % Normal 30.0-39.0 [facility] Comment on above: Performed By: #### RICARDO STEVENSON #### [facility] [address] [place] [address] Dr. Les Bryan T4 [Mass/Vol] 6.70 ug/dL Normal 4.80-13.90 [facility] Comment on above: Result Comment: T4 t esting performed by [facility] Performed By: #### RICARDO STEVENSON #### [facility] [address] [place] [address] Dr. Les Bryan GLYCOHEMOGLOBIN A1Con 2021 ADA RECOMMENDATION SEE BELOW Normal [facility] Comment on above: Result Comment: ADA RECOMMENDED LIMIT 4.0 - 6.0 ADA THERAPEUTIC TARGET < 7.0 ACTION SUGGESTED > 7.0 Performed By: #### [id number] #### [facility] [address] [place] [address] Dr. Les Bryan Glucose [Mass/Vol] 120 mg/dL Normal [facility] Comment on above: Performed By: #### 4 [id number] #### [facility] [address] [place] [address] Dr. Les Bryan HbA1c (Bld) [Mass fraction] 5.8 % Normal 4.5-6.2 [facility] Comment on above: Performed By: #### 4 [id number] #### [facility] [address] [place] [address] Dr. Les Bryan IRONon 04-05-2022 Iron [Mass/Vol] 105.0 ug/dL Normal 50.0-170.0 [facility] Comment on above: Performed By: #### RICARDO STEVENSON #### [facility] [address] [place] [address] Dr. Les Bryan LIPID PROFILEon 04-05-2022 CHOL-HDL RATIO NORM SEE BELOW Normal [facility] Comment on above: Result Comment: 3.3 - 4.4 LOW RISK 4.4 - 7.1 AVERAGE RISK 7.1 - 11.0 MODERATE RISK >11.0 HIGH RISK Performed By: #### RICARDO STEVENSON #### [facility] [address] [place] [address] Dr. Les Bryan Cholesterol [Mass/Vol] 217 mg/dL Critically high <=200 [facility] Comment on above: Performed By: #### RICARDO STEVENSON #### [facility] [address] [place] [address] Dr. Les Bryan Cholesterol in HDL [Mass/Vol] 49 mg/dL Normal 40-60 [facility] Comment on above: Performed By: #### RICARDO STEVENSON #### [facility] [address] [place] [address] Dr. Les Bryan Cholesterol in LDL [Mass/Vol] 128.2 mg/dL Normal [facility] Comment on above: Performed By: #### Andi GUY, UMICRO #### [facility] [address] [address] [address] Les Bryan Cholesterol.total/Ch olesterol in HDL [Mass ratio] 4.4 {ratio} Normal [facility] Comment on above: Performed By: #### E BROOKS, UMICRO #### [facility] [address] [address] [address] Les Bryan HDL NORMAL > or = 60 mg/dl - LOW CARDIOVASCULAR RISK <40 mg/dl - HIGH CARDIOVASCULAR RISK Normal [facility] Comment on above: Performed By: #### Andi GUY UMICRO #### [facility] [address] [address] [address] Les Bryan LDL CALC NORMAL SEE BELOW Normal [facility] Comment on above: Result Comment: <100 mg/dl OPTIMAL 100 - 129 mg/dl NEAR OR ABOVE OPTIMAL 130 - 159 mg/dl BORDERLINE HIGH 160 - 189 mg/dl HIGH >190 mg/dl VERY HIGH Performed By: #### Andi GUY, UMICRO #### [facility] [address] [address] [address] Les Bryan Triglyceride [Mass/Vol] 199 mg/dL Critically high <=150 [facility] Comment on above: Performed By: #### Andi GUY, UMICRO #### [facility] [address] [place] [address] Dr. Les Bryan VLDL CALC 39.8 mg/dL Normal [facility] Comment on above: Performed By: #### Andi GUY, UMICRO #### [facility] [address] [address] [address] Les Bryan PROF 14(COMP METB)on 022 Albumin [Mass/Vol] 3.8 g/dL Normal 3.4-5.0 [facility] Comment on above: Performed By: #### Andi GUY, UMICRO #### [facility] [address] [address] [address] Les Bryan Albumin/Globulin [Mass ratio] 0.9 {ratio} Normal [facility] Comment on above: Performed By: #### BARBER STEVENSONRO #### [facility] [address] [place] [address] Dr. Les Bryan ALP [Catalytic activity/Vol] 122 U/L Critically high 46-116 [facility] Comment on above: Performed By: #### nAdi GUY UMICRO #### [facility] [address] [place] [address] Dr. Les Bryan ALT [Catalytic activity/Vol] 90 U/L Critically high 14-59 [facility] Comment on above: Performed By: #### Andi GUY UMICRO #### [facility] [address] [place] [address] Dr. Les Bryan Anion gap [Moles/Vol] 13.5 mmol/L Normal [facility] Comment on above: Performed By: #### BARBER STEVENSONRO #### [facility] [address] [place] [address] Dr. Les Bryan AST [Catalytic activity/Vol] 63 U/L Critically high 15-37 [facility] Comment on above: Performed By: #### BARBER STEVENSONRO #### [facility] [address] [place] [address] Dr. Les Bryan Bilirubin [Mass/Vol] 0.4 mg/dL Normal 0.2-1.0 [facility] Comment on above: Performed By: #### Andi GUY UMDARCIERO #### [facility] [address] [place] [address] Dr. Les Bryan Calcium [Mass/Vol] 9.3 mg/dL Normal 8.5-10.1 [facility] Comment on above: Performed By: #### BARBER STEVENSONRO #### [facility] [address] [place] [address] Dr. Les Bryan Chloride [Moles/Vol] 103 mmol/L Normal 98-107 [facility] Comment on above: Performed By: #### BARBER STEVENSONRO #### [facility] [address] [place] [address] Dr. Les Bryan CO2 [Moles/Vol] 24.6 mmol/L Normal 21.0-32.0 [facility] Comment on above: Performed By: #### RICARDO STEVENSON #### [facility] [address] [address] [address] Les Bryan Creatinine [Mass/Vol] 0.70 mg/dL Normal 0.55-1.02 [facility] Comment on above: Performed By: #### RICARDO STEVENSON #### [facility] [address] [address] [address] Les Bryan EGFR-AF [place] >60 Normal >=60 [facility] Comment on above: Performed By: #### RICARDO STEVENSON #### [facility] [address] [place] [address] Dr. Les Bryan EGFR-NON AF [place] >60 Normal >=60 [facility] Comment on above: Performed By: #### RICARDO STEVENSON #### [facility] [address] [address] [address] Les Bryan Globulin (S) [Mass/Vol] 4.1 g/dL Normal [facility] Comment on above: Performed By: #### RICARDO STEVENSON #### [facility] [address] [place] [address] Dr. Les Bryan Glucose [Mass/Vol] 110 mg/dL Critically high 74-106 T [facility] Comment on above: Performed By: #### RICARDO STEVENSON #### [facility] [address] [address] [address] Les Bryan Potassium [Moles/Vol] 4.1 mmol/L Normal 3.5-5.1 [facility] Comment on above: Performed By: #### RICARDO STEVENSON #### [facility] [address] [address] [address] Les Bryan Protein [Mass/Vol] 7.9 g/dL Normal 6.4-8.2 [facility] Comment on above: Performed By: #### RICARDO STEVENSON #### [facility] [address] [address] [address] Les Bryan Sodium [Moles/Vol] 137 mmol/L Normal 136-145 [facility] Comment on above: Performed By: #### Andi GUY UMICRO #### [facility] [address] [place] [address] Dr. Les Bryan Urea nitrogen [Mass/Vol] 9.0 mg/dL Normal 7.0-18.0 [facility] Comment on above: Performed By: #### Andi GUY UMICRO #### [facility] [address] [place] [address] Dr. Les Bryan Urea nitrogen/Creatinine [Mass ratio] 12.9 mg/mg Normal [facility] Comment on above: Performed By: #### SABINE STEVENSONICRO #### [facility] [address] [place] [address] Dr. Les Bryan TSHon 04-05-2022 TSH 3.572 uIU/mL Normal 0.358-3.740 [facility] Comment on above: Performed By: #### Andi GUY UMDARCIERO #### [facility] [address] [place] [address] Dr. Les Bryan TSH RANGE SEE BELOW Normal [facility] Comment on above: Result Comment: <0.3 4 UIU/ml HYPERTHYROID 0.34-5.60 UIU/ml EUTHYROID >5.60 UIU/ml HYPOTHYROID Performed By: #### Andi GUY UMICRO #### [facility] [address] [place] [address] Dr. Les Bryan XR KUB 1 VIEWon [...] AMANDA CASSIDY Date: 2022-02-27 15:05 Normal [facility] AMYLASEon 02-25-2022 Amylase [Catalytic activity/Vol] 34 U/L Normal 25-115 [facility] Comment on above: Performed By: #### [id number] #### [facility] [address] [place] [address] Dr. Les Bryan CBC AUTO DIFFon 02-25-2022 BASO # 0.0 103/ul Normal 0.0-0.1 [facility] Comment on above: Performed By: #### C BC #### [facility] [address] [place] [address] Dr. Les Bryan Basophils/100 WBC (Bld) 0.4 % Normal 0.2-2.0 [facility] Comment on above: Performed By: #### C BC #### [facility] [address] [place] [address] Dr. Les Bryan EO # 0.3 103/ul Normal 0.0-0.7 [facility] Comment on above: Performed By: #### C BC #### [facility] [address] [place] [address] Dr. Les Bryan Eosinophils/100 WBC (Bld) 3.6 % Normal 0.9-7.0 [facility] Comment on above: Performed By: #### C BC #### [facility] [address] [place] [address] Dr. Les Bryan Erythrocyte distribution width (RBC) [Ratio] 13.1 % Normal 11.0-15.0 [facility] Comment on above: Performed By: #### C BC #### [facility] [address] [place] [address] Dr. Les Bryan Hematocrit (Bld) [Volume fraction] 40.6 % Normal 36.0-48.0 [facility] Comment on above: Performed By: #### C BC #### [facility] [address] [place] [address] Dr. Les Bryan Hemoglobin (Bld) [Mass/Vol] 13.3 g/dL Normal 12.0-16.0 [facility] Comment on above: Performed By: #### C BC #### [facility] [address] [place] [address] Dr. Les Bryan IG # 0.06 10e3/ul Critically high 0.00-0.03 [facility] Comment on above: Performed By: #### C BC #### [facility] [address] [place] [address] Dr. Les Bryan IG % 0.6 % Critically high 0.0-0.5 [facility] Comment on above: Performed By: #### C BC #### [facility] [address] [place] [address] Dr. Les Bryan LYMPH # 3.6 103/ul Normal 1.2-3.8 [facility] Comment on above: Performed By: #### C BC #### [facility] [address] [place] [address] Dr. Les Bryan Lymphocytes/100 WBC (Bld) 38.2 % Normal 20.5-60.0 [facility] Comment on above: Performed By: #### C BC #### [facility] [address] [place] [address] Dr. Les Bryan MANUAL DIFF REQ NO Normal [facility] Comment on above: Performed By: #### C BC #### [facility] [address] [place] [address] Dr. Les Bryan MCH (RBC) [Entitic mass] 29.7 pg Normal 26.7-34.0 [facility] Comment on above: Performed By: #### C BC #### [facility] [address] [place] [address] Dr. Les Bryan MCHC (RBC) [Mass/Vol] 32.8 g/dL Normal 29.9-35.2 [facility] Comment on above: Performed By: #### C BC #### [facility] [address] [place] [address] Dr. Les Bryan MCV (RBC) [Entitic vol] 90.6 fL Normal 81.0-99.0 [facility] Comment on above: Performed By: #### C BC #### [facility] [address] [place] [address] Dr. Les Bryan MONO # 0.5 103/ul Normal 0.3-0.8 [facility] Comment on above: Performed By: #### C BC #### [facility] [address] [place] [address] Dr. Les Bryan Monocytes/100 WBC (Bld) 5.4 % Normal 1.7-12.0 [facility] Comment on above: Performed By: #### C BC #### [facility] [address] [place] [address] Dr. Les Bryan NEUT # 4.9 103/ul Normal 1.4-6.5 [facility] Comment on above: Performed By: #### C BC #### [facility] [address] [place] [address] Dr. Les Bryan Neutrophils/100 WBC (Bld) 51.8 % Normal 43.0-75.0 [facility] Comment on above: Performed By: #### C BC #### [facility] [address] [place] [address] Dr. Les Bryan Platelet mean volume (Bld) [Entitic vol] 9.2 fL Critically low 9.5-13.5 [facility] Comment on above: Performed By: #### C BC #### [facility] [address] [place] [address] Dr. Les Bryan PLT 335 103/ul Normal 150-450 [facility] Comment on above: Performed By: #### C BC #### [facility] [address] [place] [address] Dr. Les Bryan RBC 4.48 106/ul Normal 4.20-5.40 [facility] Comment on above: Performed By: #### C BC #### [facility] [address] [place] [address] Dr. Les Bryan WBC 9.4 103/ul Normal 4.0-11.0 [facility] Comment on above: Performed By: #### C BC #### [facility] [address] [address] [address] ABD/PELVIS WO CONon [...] IWONA BRITT Date: 2022-02-25 19:05 Normal [facility] ER URINE PROFILEon 2 Bilirubin Ql (U) Negative Normal NEGATIVE [facility] Comment on above: Performed By: #### E RUR, UMICRO #### [facility] [address] [place] [address] Dr. Les Bryan Clarity (U) CLEAR Normal CLEAR [facility] Comment on above: Performed By: #### SABINE STEVENSONICRO #### [facility] [address] [place] [address] Dr. Les Bryan Color (U) YELLOW Normal YELLOW [facility] Comment on above: Performed By: #### SABINE STEVENSONICRO #### [facility] [address] [place] [address] Dr. Les MOY A micrscopic examination will be performed if indicated. Normal [facility] Comment on above: Performed By: #### SABINE STEVENSONICRO #### [facility] [address] [place] [address] Dr. Les Bryan Glucose Ql (U) Negative Normal NEGATIVE [facility] Comment on above: Performed By: #### BARBER STEVENSONRO #### [facility] [address] [place] [address] Dr. Les Bryan Hemoglobin Ql (U) LARGE Abnormal NEGATIVE [facility] Comment on above: Performed By: #### BARBER STEVENSONRO #### [facility] [address] [place] [address] Dr. Les Bryan Ketones Ql (U) Negative Normal NEGATIVE [facility] Comment on above: Performed By: #### BARBER STEVENSONRO #### [facility] [address] [place] [address] Dr. Les Bryan LEUKOCYTES TRACE Abnormal NEGATIVE [facility] Comment on above: Performed By: #### BARBER STEVENSONRO #### [facility] [address] [place] [address] Dr. Les Bryan Nitrite Ql (U) Negative Normal NEGATIVE [facility] Comment on above: Performed By: #### SABINE STEVENSONICRO #### [facility] [address] [place] [address] Dr. Les Bryan pH (U) 7.0 [pH] Normal 5-9 [facility] Comment on above: Performed By: #### BARBER STEVENSONRO #### [facility] [address] [place] [address] Dr. Les Bryan Protein (U) [Mass/Vol] 30 mg/dL Abnormal NEGATIVE/ TRACE [facility] Comment on above: Performed By: #### BARBER STEVENSONRO #### [facility] [address] [place] [address] Dr. Les Bryan SPEC GRAVITY 1.025 Normal 1.005-<=1.025 [facility] Comment on above: Performed By: #### BARBER STEVENSONRO #### [facility] [address] [place] [address] Dr. Les Bryan UR MICRO IND INDICATED Normal [facility] Comment on above: Performed By: #### BARBER STEVENSONRO #### [facility] [address] [place] [address] Dr. Les Bryan Urobilinogen Qn (U) 0.2 {Racquel'U}/dL Normal 0.2 - 1. 0 [facility] Comment on above: Performed By: #### RICARDO STEVENSON #### [facility] [address] [place] [address] Dr. Les Bryan LIPASEon 02-25-2022 Lipase [Catalytic activity/Vol] 82.0 U/L Normal 73.0-393.0 [facility] Comment on above: Performed By: #### [id number] #### [facility] [address] [place] [address] Dr. Les Bryan PROF 14(COMP METB)on 022 Albumin [Mass/Vol] 3.7 g/dL Normal 3.4-5.0 [facility] Comment on above: Performed By: #### [id number] #### [facility] [address] [place] [address] Dr. Les Bryan Albumin/Globulin [Mass ratio] 0.9 {ratio} Normal [facility] Comment on above: Performed By: #### [id number] #### [facility] [address] [address] [address] Les Bryan ALP [Catalytic activity/Vol] 129 U/L Critically high 46-116 [facility] Comment on above: Performed By: #### [id number] #### [facility] [address] [address] [address] Les Bryan ALT [Catalytic activity/Vol] 86 U/L Critically high 14-59 [facility] Comment on above: Performed By: #### 4 [id number] #### [facility] [address] [address] [address] Les Bryan Anion gap [Moles/Vol] 15.3 mmol/L Normal [facility] Comment on above: Performed By: #### [id number] #### [facility] [address] [address] [address] Les Bryan AST [Catalytic activity/Vol] 51 U/L Critically high 15-37 [facility] Comment on above: Performed By: #### 4 [id number] #### [facility] [address] [address] [address] Les Bryan Bilirubin [Mass/Vol] 0.2 mg/dL Normal 0.2-1.0 [facility] Comment on above: Performed By: #### 4 [id number] #### [facility] [address] [address] [address] Les Bryan Calcium [Mass/Vol] 8.4 mg/dL Critically low 8.5-10.1 [facility] Comment on above: Performed By: #### 4 [id number] #### [facility] [address] [address] [address] Les Bryan Chloride [Moles/Vol] 103 mmol/L Normal 98-107 [facility] Comment on above: Performed By: #### 4 [id number] #### [facility] [address] [address] [address] Les Bryan CO2 [Moles/Vol] 26.2 mmol/L Normal 21.0-32.0 [facility] Comment on above: Performed By: #### 4 [id number] #### [facility] [address] [address] [address] Les Bryan Creatinine [Mass/Vol] 0.72 mg/dL Normal 0.55-1.02 [facility] Comment on above: Performed By: #### 4 [id number] #### [facility] [address] [address] [address] Les Bryan EGFR-AF [place] >60 Normal >=60 [facility] Comment on above: Performed By: #### 4 [id number] #### [facility] [address] [address] [address] Les Bryan EGFR-NON AF [place] >60 Normal >=60 [facility] Comment on above: Performed By: #### 4 [id number] #### [facility] [address] [place] [address] Dr. Les Bryan Globulin (S) [Mass/Vol] 4.2 g/dL Normal [facility] Comment on above: Performed By: #### 4 [id number] #### [facility] [address] [place] [address] Dr. Les Bryan Glucose [Mass/Vol] 121 mg/dL Critically high 74-106 [facility] Comment on above: Performed By: #### 4 [id number] #### [facility] [address] [place] [address] Dr. Les Bryan Potassium [Moles/Vol] 3.5 mmol/L Normal 3.5-5.1 [facility] Comment on above: Performed By: #### 4 [id number] #### [facility] [address] [place] [address] Dr. Les Bryan Protein [Mass/Vol] 7.9 g/dL Normal 6.1-8.2 [facility] Comment on above: Performed By: #### 4 [id number] #### [facility] [address] [place] [address] Dr. Les Bryan Sodium [Moles/Vol] 141 mmol/L Normal 136-145 [facility] Comment on above: Performed By: #### 4 [id number] #### [facility] [address] [place] [address] Dr. Les Bryan Urea nitrogen [Mass/Vol] 14.0 mg/dL Normal 7.0-18.0 [facility] Comment on above: Performed By: #### 4 [id number] #### [facility] [address] [place] [address] Dr. Les Bryan Urea nitrogen/Creatinine [Mass ratio] 19.4 mg/mg Normal [facility] Comment on above: Performed By: #### 4 [id number] #### [facility] [address] [place] [address] Dr. Les Bryan URINE MICROSCOPIC ONLYon BACTERIA TRACE Abnormal NONE SEEN [facility] Comment on above: Performed By: #### SABINE STEVENSONICRO #### [facility] [address] [place] [address] Dr. Les Bryan Bacteria identified Cx Nom (U) NOT INDICATED Normal [facility] Comment on above: Performed By: #### Andi GUY UMICRO #### [facility] [address] [place] [address] Dr. Les Bryan CAST NONE SEEN Normal NONE SEEN [facility] Comment on above: Performed By: #### Andi GUY UMICRO #### [facility] [address] [place] [address] Dr. Les Bryan Crystals LM Nom (Urine sed) NONE SEEN Normal NONE SEEN [facility] Comment on above: Performed By: #### Andi GUY UMICRO #### [facility] [address] [place] [address] Dr. Les Bryan Epithelial cells LM Ql (Urine sed) MODERATE Abnormal NONE SEEN /RARE [facility] Comment on above: Performed By: #### Andi GUY UMICRO #### [facility] [address] [place] [address] Dr. Les Bryan MUCOUS NONE SEEN Normal NONE SEEN [facility] Comment on above: Performed By: #### Andi GUY UMICRO #### [facility] [address] [place] [address] Dr. Les Bryan RBC 20-50 Abnormal 0-2 [facility] Comment on above: Result Comment: cren ated RBCs Performed By: #### RICARDO STEVENSON #### [facility] [address] [place], [place] [address] Dr. Les Bryan WBC 2-5 Abnormal NONE SEEN [facility] Comment on above: Performed By: #### Andi GUY, RICARDO #### [facility] [address] [place], [place] [address] Dr. Les Bryan Vital Signs Date Time Vital Sign Value Performing Clinician Facility 09-13-2023 10:30-0500 Body height 162.56 cm Shae Love Other [facility] Other 09-13-2023 10:30-0500 Body mass index (BMI) [Ratio] 23.14 kg/m2 hSae Love Other [facility] Other 09-13-2023 10:30-0500 Body temperature 98.4 [degF] Shae Love Other [facility] Other 09-13-2023 10:30-0500 Body weight 61.15 kg Shae Love Other [facility] Other 09-13-2023 10:30-0500 Respiratory rate 18 /min Shae Love Other [facility] Other 09-13-2023 10:30-0500 SaO2% (BldA) [Mass fraction] 99 % Shae Love Other [facility] Other 04-21-2022 09:07-0400 Blood Pressure Location Jl FREDERICK [facility] [place] 04-21-2022 09:07-0400 Diastolic blood pressure 86 mm[Hg] Jl FREDERICK [facility] [place] 04-21-2022 09:07-0400 Heart rate 92 /min Jl YULIANAL [facility] [place] 04-21-2022 09:07-0400 Respiratory rate 16 /min Jl BRIDGESL [facility] 04-21-2022 09:07-0400 Systolic blood pressure 127 mm[Hg] Jl BRIDGESL 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: [facility] Work Phone: Start: 10-09-2022 End: 10-10-[address] ANGELICA DE Facility:[facility] Start: 09-04-2022 End: 09-04-[address] ANGELICA DE Facility:[facility] Start: 09-01-2022 End: 09-02-[address] ANGELICA DE Facility:[facility] Start: 05-30-2022 End: 05-30-[address] ANGELICA DE Facility:[facility] Start: 05-12-2022 End: 05-12-2022 Patient encounter procedure Jl FREDERICK [facility] [place] Start: 05-03-2022 End: 05-03-2022 Patient encounter procedure Jl FREDERICK [facility] [place] Start: 04-21-2022 End: 04-21-2022 Patient encounter procedure Jl Nieves YOLY [facility] [place] Start: 04-20-[address] ANGELICA DE Facility :[facility] Start: 04-17-2022 End: 04-18-[address] ANGELICA DE Facility:[facility] Start: 04-05-2022 End: 04-06-[address] ANGELICA DE Facility:[facility] Start: 02-27-2022 End: 02-28-[address] ANGELICA DE Facility:[facility] Start: 02-25-2022 End: 02-25-2022 ambulatory EMILY MCDERMOTT Facility:[facility] Procedures Date Procedure Procedure Detail Performing Clinician Start: 09-13-2023 Radiologic examinati on of knee 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 Phone: Start: 05-03-2022 Excision of dermatofibroma Jl YOLY Comment on above: left ankle Start: 07-08-2015 laparoscopic cholecy stectomy with intraoperative cholangiogram Jl FREDERICK Abdominal hysterectomy Sebastian munguia YOLY Bilateral complete salpingectomy Jl FREDERICK Diagnostic laparoscopy Sebastian FREDERICK Loop electrosurgical excision procedure Jl FREDERICK Payers Date Payer Category Payer Unknown [id number] 2.16.84 [id number] 1980 Unknown [id number] 2.16.84 [id number] 1979 Unknown [id number] 2.16.84 [id number] 1979 Unknown [id number] 2.16.84 [id number] 1979 Unknown [id number] 2.16.84 [id number] 1979 Unknown [id number] 2.16.84 [id number] 1979 Unknown [id number] 2.16.84 [id number] 1979 Unknown [id number] 2.16.84 [id number] 1979 Unknown [id number] 2.16.84 [id number] 1960 Self-pay 1960 Unknown [id number] Unknown [id number] 2.16.8 [id number] Social History Date Type Detail Facility Start: 04-21-2022 Tobacco smoking status Ex-smoker (fi nding) [facility] Tobacco smoking status Never Fis[facility] Sex Assigned At Female [facility] Start: 1980 Sex Assigned At Female F [facility] Functional Status Date Assessment Result Facility 04-21-2022 Functional Status N/A [facility] Evaluation note 09-13-2023 Note Date & Type [...] understanding and is agreeable to treatment plan [facility] Other Clinical Note 04-21-2022 Note Date & [...] Mother. Primary malignant neoplasm of bladder: Father. [facility] Comment on above: Result Comment: Elec tronically Signed By: Jl FREDERICK MD\.br\Date and Time Signed: 04/21/22 09:48 EDT Evaluation + Plan note Note Date & Type Note Facility Evaluation + Plan note Future Appointments Appointment Date:05/03/2022 03:00:00 PM Scheduled Provider:Jl FREDERICK MD Location:[facility] Appointment Type: Procedure 30 [facility] [place] Evaluation + Plan note Note Date & Type Note Facility Evaluation + Plan note Future Appointments Appointment Date:05/12/2022 03:40:00 PM Scheduled Provider:Jl FREDERICK MD Location:[facility] Appointment Type: Post Op 15 [facility] Surgery [place] Evaluation note Note Date & Type Note Facility Evaluation note No assessment information availa [facility] Work Phone: History general Narrative - Reported Note Date & Type Note Facility History general Narrative - Reported Type Medical History Anxiety disorder Medical History chronic depression Medical History thyriod Surgical History LEAP [facility] Other Hospital course Narrative Note Date & Type Note Facility Hospital course Narrative No data available for this section [facility] [place] [facility] Discharge instructions Note Date & Type Note Facility Hospital Discharge instructions No data available for this section [facility] [place] Progress note Note Date & Type Note Facility Progress note No data available for this section [facility] [place] Summary Purpose Family History No Family History [...] section and content) DATE CREATED AUTHOR 05/16/2022 [facility] DATE CREATED AUTHOR AUTHOR'S ORGANIZ ATION [facility]/20/2022 [facility] DATE CREATED AUTHOR AUTHOR'S ORGANIZ ATION 12/07/2023 [facility] REASON FOR VISIT (unrecogniz ed section and [...] BE BASED ON THE PRIMARY CLINICAL RECORDS. [facility] [employer] [facility]. provides no warranty or guarantee of the accuracy or completeness of information in this document.
[2024-03-12 16:49] LABS: Free T4 0.71 ng/dL (0.76-1.46)
[2024-03-12 16:51] LABS: Thyroid Stimulating Hormone 2.877 uIU/mL (0.358-3.740)
== END 2024-03-12 16:04 | disposition home or self-care (01) ==
LOC: LAB 16:04
PROVIDERS: PCP Family Medicine; Visit Provider Family Medicine
DX: R79.89 Other specified abnormal findings of blood chemistry (principal)
CPT/HCPCS: 36415; 84439; 84443

== ENCOUNTER 2024-03-14 13:27 | Outpatient (OUT) | payer BC, SELFPAY ==
--- NOTE | 2024-03-14 13:35 | US_ITS ---
The [address] [address] Patient Name: LUCIA HERNDON MRN: [id number] date: 1980 Sex: F Assigned Patient Location: [place] Current Patient Location: [place] Accession/Order Number: [id number] Exam Date: 03/14/2024 13:45 Report Date: 03/14/2024 14:06 At the request of: ANGELICA VERONICA Procedure: US venous doppler UE LT EXAM: US venous doppler UE LT HISTORY: Arm Edema R60.0 COMPARISON: None. TECHNIQUE: Grayscale and Doppler FINDINGS: Region: Left arm Thrombus: None Flow: Normal Compressibility: Normal US/US venous doppler UE LT IMPRESSION: No deep or superficial vein thrombus identified in the left arm Electronically authenticated by: BELIA EHNDRICKS Date: 03/14/2024 14:06
--- OUTSIDE RECORDS SUMMARY | 2024-03-14 13:38 | XMS_ITS | CCD ---
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 Name Role Phone Angelica De Primary Care [...] Shae Love Unavailable RUBY Love Attending Provider [phone] Shae Love Attending Unavailable Shae Love Admitting Unavailable Allergies Allergy Classification Reported Allergen(s) Allergy Type Date of Onset Reaction(s) Facility (5 sources) Latex; Translations: [Latex] Drug allergy 3 Eruption of skin (disorder), rash [facility] (4 sources) Sulfamethoxazole / Trimethoprim; Translations: [sulfamethoxazole-tr imethoprim] Drug Allergy Weal (disorder), hives [facility] (2 sources) natural latex rubber Drug allergy (disorder) [facility]ository (2 sources) Sulfamethoxazole / Trimethoprim Drug Allergy [facility] (1 source) Sulfamethoxazole Drug Allergy 3 [facility] Repository (1 source) Trimethoprim Drug Allergy 3 [facility] Repository Medications Current Medications Medication Drug [...] 04/14/22 Status: Ordered take 1 tablet by grzgeorz th every twenty-four hours SEROquel 100 MG [...] (1 source) l-Thyroxine Levothyroxine So dium Not-Taking [facility] (1 source) [facility] Not- Taking Problems Active Problems Problem Classification [...] LT 4V*on 09-13-2023 XR knee LT 4V* [facility] [employer] Other XR knee LT 4V* [facility] [employer] Other XR knee LT 4V* 1111 [facility] [employer] Other XR knee LT 4[place]* [place] [address] No [facility] [employer] Other XR knee LT 4V* XRay Report [employer] Other XR knee LT 4V* Signed [employer] Other XR knee LT 4V* Patient: Josephine Herndon MR#: [id number] [employer] Other XR knee LT 4V* 8 [employer] Other XR knee LT 4V* : 1980 Acct:[id number] [employer] Other XR knee LT 4V* Age/Sex: 43 / F ADM Date: 09/13/23 [employer] Other XR knee LT 4V* Loc: XDUCLY Room: Type: REG CLI [employer] Other XR knee LT 4V* Attending Dr: Shae Love [facility] [employer] Other XR knee LT 4V* Copies to: Shae Love TANDEM MILL STICKER [employer] Other XR knee LT 4V* Ordering Provider: Shae Love APRN [employer] Other XR knee LT 4V* Date of Service: 09/13/23 [employer] Other XR knee LT 4V* XR/XR knee LT 4V*: Injury [employer] Other XR knee LT 4V* XR knee LT 4V* 09/13/2023 10:51 AM [employer] Other XR knee LT 4V* SIGNS AND SYMPTOMS: Twisting injury to left knee with pain and swelling medially [employer] Other XR knee LT 4V* PROTOCOL: Frontal, lateral, and oblique radiographs of the left knee [employer] Other XR knee LT 4V* COMPARISON: None [employer] Other XR knee LT 4V* FINDINGS: [employer] Other XR knee LT 4V* The joint spaces are preserved. There is a moderate joint effusion. There is no evidence of fracture [employer] Other XR knee LT 4V* or dislocation. No significant soft tissue swelling. [employer] Other XR knee LT 4V* XR/XR knee LT 4V* [employer] Other XR knee LT 4V* IMPRESSION: [employer] Other XR knee LT 4V* No fracture. [employer] Other XR knee LT 4V* There is a moderate joint effusion. [employer] Other XR knee LT 4V* Impression dictated by: Donato Rockwell M.D.09/13/2023 11:19 AM [employer] Other XR knee LT 4V* Dictation Location: [place] [address] [employer] Other XR knee LT 4V* Transcribed By: PWS 09/13/23 [facility] [employer] Other XR knee LT 4V* Dictated By: Donato Rockwell II, MD 09/13/23 [facility] [employer] Other XR knee LT 4V* Signed By: [employer] Other XR knee LT 4V* 09/13/23 [facility] [employer] Other XR knee LT 4V* [facility] Main [place] [address] [place] [address] XRay Report Signed Patient: Josephine Herndon MR#: [id number] : 1980 Acct:[id number] Age/Sex: 43 / F ADM Date: 09/13/23 Loc: XDUCLY Room: Type: [facility] Attending Dr: Shae Love APRN Copies to: Shae Love APRN Ordering Provider: Shae L Love, TANDEM [employer]ILL STICKER Date of Service: 09/13/23 XR/XR knee LT [...] Donato Rockwell M.D.09/13/2023 11:19 AM Dictation Location: [place] [address] Transcribed By: [facility] 09/13/23 111 Dictated By: Donato Rockwell II, MD 09/13/23 1118 Signed By: 09/13/23 111 [facility] CT CHEST WO CONon 10-10-2022 CT CHEST [...] AMANDA CASSIDY Date: 2022-10-10 10:35 Normal [facility] Covid-19 PCR (CVDTB)on SARS-CoV-2 (COVID-19) RNA RAYMOND+probe Ql (Unsp spec) Not detected Normal NOT DETECTED [facility] Comment on above: Result Comment: [...] for this test is supported by the Outpatient Phlebotomist of Health and Human Service's declaration that [...] longer be used). Performed By: #### C [facility] #### [facility] [address] [place] [address] CHEST WO CONon [...] by: BELIA HENDRICKS Date: 2022-09-01 09:55 Normal [facility] MG MAMM SCREEN 3D GUSTAVO CADon 09-01-2022 MG MAMM SCREEN 3D GUSTAVO CAD Patient: JOSEPHINE HERNDON Exam Date: 09/01/2022 : 1980 Gender:F Ordering : DR ANGELICA DE . Admission #: [id number] Family : Order #: [id number] CLICK HERE TO VIEW EXAM RADIOLOGY REPORT [...] bladder cancer at age 59. LOCATION: [facility] BREAST COMPOSITION: Scattered areas fibroglandular [...] Hendricks MD on 09/01/2022 at 09:32 Normal [facility] PAP ACOG PANEL 2: 21 to 29on 06-02-2022 . . Normal [facility] Comment on above: Result Comment: Perf ormed at: WB Performed By: #### [id number] #### [facility] [address] [place] [address] Dr. Les Bryan Age Gdln ACOG Testing 30-65 Normal [facility] Comment on above: Performed By: #### 4 [id number] #### [facility] [address] [place] [address] [address] Les Bryan DIAGNOSIS: Comment Normal [facility] Comment on above: Result Comment: NEGA TIVE FOR INTRAEPITHELIAL LESION OR MALIGNANCY. Performed at: WB Performed By: #### 4 [id number] #### [facility] [address] [place] [address] [address] Les Bryan HPV Aptima Negative Normal Negative [facility] Comment on above: Result Comment: This nucleic acid amplification test detects fourteen high-risk HPV types (16,18,31,33,35,39,45,51,52,56,58,59,66,68) without differentiation. Performed at: =G Performed By: #### 4 [id number] #### [facility] [address] [place] [address] [address] Les Bryan Methodology: Comment Normal [facility] Comment on above: Result Comment: This liquid based ThinPrep(R) pap test was screened with the use of an image guided system. Performed at: WB Performed By: #### 4 [id number] #### [facility] [address] [place] [address] [address] Les Bryan Note: Comment Normal [facility] Comment on above: Result Comment: The Pap smear is a screening test designed to aid in the detection of premalignant and malignant conditions of the uterine cervix. It is not a diagnostic procedure and should not be used as the sole means of detecting cervical cancer. Both false-positive and false-negative reports do occur. . Performed at: WB Performed By: #### 4 [id number] #### [facility] [address] [place] [address] [address] Les Bryan Performed by: Comment Normal [facility] Comment on above: Result Comment: Bella Cuevas, Upholsterer Helper (ASCP) Performed at: WB Performed By: #### 4 [id number] #### [facility] [address] [place] [address] [address] Les Bryan Specimen adequacy: Comment Normal [facility] Comment on above: Result Comment: Sati sfactory for evaluation. Endocervical and/or squamous metaplastic cells (endocervical component) are present. Performed at: WB Performed By: #### 4 [id number] #### [facility] [address] [place] [address] Dr. Les Bryan General Surgery Office/Clini c [...] neoplasm of bladder: Father. Normal [facility] Comment on above: Result Comment: [...] treatment for. Migraine Psoriasis Alvaro [facility] General Surgery Office/Clini c Noteon [...] neoplasm of bladder: Father. Normal [facility] Comment on above: Result Comment: Elec tronically Signed By: YOLY AKBAR, Jl Nieves\.br\Date and Time Signed: 05/12/22 16:00 EDT Pathology Noteon 05-08-2022 Pathology Note [id number] #[id number] Normal [facility] Ambulatory Visit Summaryon 0 05-03-2022 [...] Jl FREDERICK MD Where: General Surgery Nill/Said [facility] Ambulatory Visit Summaryon 0 04-21-2022 Ambulatory Visit [...] Jl FREDERICK MD Where: General Surgery Nill/Said [facility] HEPATITIS PANEL, ACUTEon HBsAg Screen Negative Normal Negative [facility] Comment on above: Performed By: #### H EPACUT #### [facility] [address] [place] [address] [address] Les Bryan HCV AB 0.2 s/co ratio Normal 0.0-0.9 [facility] Comment on above: Performed By: #### H EPACUT #### [facility] [address] [place] [address] [address] Les Bryan Hep A Ab, IgM Negative Normal Negative [facility] Comment on above: Performed By: #### H EPACUT #### [facility] [address] [place] [address] Dr. Les Bryan Hep B Core Ab, IgM Negative Normal Negative [facility] Comment on above: Performed By: #### H EPACUT #### [facility] [address] [place] [address] Dr. Les Bryan Interpretation: Comment Normal [facility] Comment on above: Result Comment: Nega tive Not infected with HCV, unless recent infection is suspected or other evidence exists to indicate HCV infection. Performed By: #### H EPACUT #### [facility] [address] [place] [address] Dr. Les Bryan INSULINon 04-18-2022 Insulin 18.8 uIU/mL Normal 2.6-24.9 [facility] Comment on above: Performed By: #### I NSULIN #### [facility] [address] [place] [address] Dr. Les Bryan BILIRUBIN CONJUGATED (DIRECT )on 04-17-2022 BILI, CONJUGATED 0.1 mg/dL Normal 0.0-0.2 [facility] Comment on above: Performed By: #### RICARDO STEVENSON #### [facility] [address] [place] [address] Dr. Les Bryan BNPon 04-17-2022 Natriuretic peptide B (Bld) [Mass/Vol] 12.0 pg/mL Normal <=450.0 [facility] Comment on above: Performed By: #### RICARDO STEVENSON #### [facility] [address] [place] [address] Dr. Les Bryan CBC AUTO DIFFon 04-17-2022 BASO # 0.1 103/ul Normal 0.0-0.1 [facility] Comment on above: Performed By: #### C BC #### [facility] [address] [place] [address] Dr. Les Bryan Basophils/100 WBC (Bld) 0.6 % Normal 0.2-2.0 [facility] Comment on above: Performed By: #### C BC #### [facility] [address] [place] [address] [address] Les Bryan EO # 0.3 103/ul Normal 0.0-0.7 [facility] Comment on above: Performed By: #### C BC #### [facility] [address] [place] [address] Dr. Les Bryan Eosinophils/100 WBC (Bld) 3.0 % Normal 0.9-7.0 [facility] Comment on above: Performed By: #### C BC #### [facility] [address] [place] [address] Dr. Les Bryan Erythrocyte distribution width (RBC) [Ratio] 13.2 % Normal 11.0-15.0 [facility] Comment on above: Performed By: #### C BC #### [facility] [address] [place] [address] Dr. Les Bryan Hematocrit (Bld) [Volume fraction] 40.8 % Normal 36.0-48.0 [facility] Comment on above: Performed By: #### C BC #### [facility] [address] [place] [address] Dr. Les Bryan Hemoglobin (Bld) [Mass/Vol] 13.4 g/dL Normal 12.0-16.0 [facility] Comment on above: Performed By: #### C BC #### [facility] [address] [place] [address] Dr. Les Bryan IG # 0.07 10e3/ul Critically high 0.00-0.03 [facility] Comment on above: Performed By: #### C BC #### [facility] [address] [place] [address] Dr. Les Bryan IG % 0.8 % Critically high 0.0-0.5 [facility] Comment on above: Performed By: #### C BC #### [facility] [address] [place] [address] Dr. Les Bryan LYMPH # 2.8 103/ul Normal 1.2-3.8 [facility] Comment on above: Performed By: #### C BC #### [facility] [address] [place] [address] Dr. Les Bryan Lymphocytes/100 WBC (Bld) 31.7 % Normal 20.5-60.0 [facility] Comment on above: Performed By: #### C BC #### [facility] [address] [place] [address] Dr. Les Bryan MANUAL DIFF REQ NO Normal [facility] Comment on above: Performed By: #### C BC #### [facility] [address] [place] [address] Dr. Les Bryan MCH (RBC) [Entitic mass] 29.5 pg Normal 26.7-34.0 [facility] Comment on above: Performed By: #### C BC #### [facility] [address] [place] [address] Dr. Les Bryan MCHC (RBC) [Mass/Vol] 32.8 g/dL Normal 29.9-35.2 [facility] Comment on above: Performed By: #### C BC #### [facility] [address] [place] [address] Dr. Les Bryan MCV (RBC) [Entitic vol] 89.9 fL Normal 81.0-99.0 [facility] Comment on above: Performed By: #### C BC #### [facility] [address] [place] [address] Dr. Les Bryan MONO # 0.4 103/ul Normal 0.3-0.8 [facility] Comment on above: Performed By: #### C BC #### [facility] [address] [place] [address] Dr. Les Bryan Monocytes/100 WBC (Bld) 4.7 % Normal 1.7-12.0 [facility] Comment on above: Performed By: #### C BC #### [facility] [address] [place] [address] Dr. Les Bryan NEUT # 5.3 103/ul Normal 1.4-6.5 [facility] Comment on above: Performed By: #### C BC #### [facility] [address] [place] [address] [address] Les Bryan Neutrophils/100 WBC (Bld) 59.2 % Normal 43.0-75.0 [facility] Comment on above: Performed By: #### C BC #### [facility] [address] [place] [address] [address] Les Bryan Platelet mean volume (Bld) [Entitic vol] 9.1 fL Critically low 9.5-13.5 [facility] Comment on above: Performed By: #### C BC #### [facility] [address] [place] [address] [address] Les Bryan PLT 309 103/ul Normal 150-450 [facility] Comment on above: Performed By: #### C BC #### [facility] [address] [place] [address] Dr. Les Bryan RBC 4.54 106/ul Normal 4.20-5.40 [facility] Comment on above: Performed By: #### C BC #### [facility] [address] [place] [address] [address] Les Bryan WBC 8.9 103/ul Normal 4.0-11.0 [facility] Comment on above: Performed By: #### C BC #### [facility] [address] [place] [address] Dr. Les Bryan FREE T3on 04-17-2022 FREE T3 2.02 pg/mlL Critically low 2.18-3.98 [facility] Comment on above: Performed By: #### RICARDO STEVENSON #### [facility] [address] [place] [address] [address] Les Bryan FREE THYROXINE INDEX T7on FTI 2.07 Normal 1.30-4.50 [facility] Comment on above: Performed By: #### RICARDO STEVENSON #### [facility] [address] [place] [address] [address] Les Bryan T3U 30.0 % Normal 30.0-39.0 [facility] Comment on above: Performed By: #### RICARDO STEVENSON #### [facility] [address] [place] [address] [address] Les Bryan T4 [Mass/Vol] 6.90 ug/dL Normal 4.80-13.90 [facility] Comment on above: Performed By: #### RICARDO STEVENSON #### [facility] [address] [place] [address] [address] Les Bryan GLYCOHEMOGLOBIN A1Con 2021 ADA RECOMMENDATION SEE BELOW Normal [facility] Comment on above: Result Comment: ADA RECOMMENDED LIMIT 4.0 - 6.0 ADA THERAPEUTIC TARGET < 7.0 ACTION SUGGESTED > 7.0 Performed By: #### A 1C #### [facility] [address] [place] [address] Dr. Les Bryan Glucose [Mass/Vol] 120 mg/dL Normal [facility] Comment on above: Performed By: #### A 1C #### [facility] [address] [place] [address] Dr. Les Bryan HbA1c (Bld) [Mass fraction] 5.8 % Normal 4.5-6.2 [facility] Comment on above: Performed By: #### A 1C #### [facility] [address] [place] [address] Dr. Les Bryan IRONon 04-17-2022 Iron [Mass/Vol] 66.0 ug/dL Normal 50.0-170.0 [facility] Comment on above: Performed By: #### RICARDO STEVENSON #### [facility] [address] [place] [address] Dr. Les Bryan LIPID PROFILEon 04-17-2022 CHOL-HDL RATIO NORM SEE BELOW Normal [facility] Comment on above: Result Comment: 3.3 - 4.4 LOW RISK 4.4 - 7.1 AVERAGE RISK 7.1 - 11.0 MODERATE RISK >11.0 HIGH RISK Performed By: #### RICARDO STEVENSON #### [facility] [address] [place] [address] Dr. Les Bryan Cholesterol [Mass/Vol] 244 mg/dL Critically high <=200 [facility] Comment on above: Performed By: #### Andi GUY UMICRO #### [facility] [address] [place] [address] [address] Les Bryan Cholesterol in HDL [Mass/Vol] 55 mg/dL Normal 40-60 [facility] Comment on above: Performed By: #### Andi GUY UMICRO #### [facility] [address] [place] [address] [address] Les Bryan Cholesterol in LDL [Mass/Vol] 155.4 mg/dL Normal [facility] Comment on above: Performed By: #### Andi GUY UMICRO #### [facility] [address] [address] [address] Les Bryan Cholesterol.total/Ch olesterol in HDL [Mass ratio] 4.4 {ratio} Normal [facility] Comment on above: Performed By: #### Andi GUY UMICRO #### [facility] [address] [place] [address] Dr. Les Bryan HDL NORMAL > or = 60 mg/dl - LOW CARDIOVASCULAR RISK <40 mg/dl - HIGH CARDIOVASCULAR RISK Normal [facility] Comment on above: Performed By: #### Andi GUY UMICRO #### [facility] [address] [place] [address] [address] Les Bryan LDL CALC NORMAL SEE BELOW Normal [facility] Comment on above: Result Comment: <100 mg/dl OPTIMAL 100 - 129 mg/dl NEAR OR ABOVE OPTIMAL 130 - 159 mg/dl BORDERLINE HIGH 160 - 189 mg/dl HIGH >190 mg/dl VERY HIGH Performed By: #### Andi GUY UMICRO #### [facility] [address] [place] [address] Dr. Les Bryan Triglyceride [Mass/Vol] 168 mg/dL Critically high <=150 [facility] Comment on above: Performed By: #### Andi GUY UMICRO #### [facility] [address] [address] [address] Les Bryan VLDL CALC 33.6 mg/dL Normal [facility] Comment on above: Performed By: #### Andi GUY UMICRO #### [facility] [address] [place] [address] Dr. Les Bryan PROF 14(COMP METB)on 022 Albumin [Mass/Vol] 3.9 g/dL Normal 3.4-5.0 [facility] Comment on above: Performed By: #### Andi GUY, UMICRO #### [facility] [address] [place] [address] Dr. Les Bryna Albumin/Globulin [Mass ratio] 0.9 {ratio} Normal [facility] Comment on above: Performed By: #### Andi GUY UMICRO #### [facility] [address] [place] [address] Dr. Les Bryan ALP [Catalytic activity/Vol] 137 U/L Critically high 46-116 [facility] Comment on above: Performed By: #### Andi GUY UMICRO #### [facility] [address] [place] [address] Dr. Les Bryan ALT [Catalytic activity/Vol] 104 U/L Critically high 14-59 [facility] Comment on above: Performed By: #### Andi GUY UMICRO #### [facility] [address] [place] [address] Dr. Les Bryan Anion gap [Moles/Vol] 13.3 mmol/L Normal [facility] Comment on above: Performed By: #### Andi GUY UMICRO #### [facility] [address] [place] [address] Dr. Les Bryan AST [Catalytic activity/Vol] 59 U/L Critically high 15-37 [facility] Comment on above: Performed By: #### Andi GUY UMICRO #### [facility] [address] [place] [address] Dr. Les Bryan Bilirubin [Mass/Vol] 0.3 mg/dL Normal 0.2-1.0 [facility] Comment on above: Performed By: #### Andi GUY, UMICRO #### [facility] [address] [place] [address] Dr. Les Bryan Calcium [Mass/Vol] 9.0 mg/dL Normal 8.5-10.1 [facility] Comment on above: Performed By: #### RICARDO STEVENSON #### [facility] [address] [place] [address] Dr. Les Bryan Chloride [Moles/Vol] 104 mmol/L Normal 98-107 [facility] Comment on above: Performed By: #### RICARDO STEVENSON #### [facility] [address] [place] [address] Dr. Les Bryan CO2 [Moles/Vol] 25.0 mmol/L Normal 21.0-32.0 [facility] Comment on above: Performed By: #### RICARDO STEVENSON #### [facility] [address] [place] [address] Dr. Les Bryan Creatinine [Mass/Vol] 0.70 mg/dL Normal 0.55-1.02 [facility] Comment on above: Performed By: #### RICARDO STEVENSON #### [facility] [address] [place] [address] Dr. Les Bryan EGFR-AF DUTCH 111 mL/min/1.73m2 Normal >=60 [facility] Comment on above: Performed By: #### RICARDO STEVENSON #### [facility] [address] [place] [address] Dr. Les Bryan EGFR-NON AF DUTCH 92 mL/min/1.73m2 Normal >=60 [facility] Comment on above: Performed By: #### BARBER STEVENSONRO #### [facility] [address] [place] [address] Dr. Les Bryan Globulin (S) [Mass/Vol] 4.3 g/dL Normal [facility] Comment on above: Performed By: #### RICARDO STEVENSON #### [facility] [address] [place] [address] Dr. Les Bryan Glucose [Mass/Vol] 104 mg/dL Normal 74-106 [facility] Comment on above: Performed By: #### RICARDO STEVENSON #### [facility] [address] [place] [address] Dr. Les Bryan Potassium [Moles/Vol] 4.3 mmol/L Normal 3.5-5.1 [facility] Comment on above: Performed By: #### Andi GUY, UMICRO #### [facility] [address] [place] [address] Dr. Les Bryan Protein [Mass/Vol] 8.2 g/dL Normal 6.4-8.2 [facility] Comment on above: Performed By: #### Andi GUY, UMICRO #### [facility] [address] [place] [address] Dr. Les Bryan Sodium [Moles/Vol] 138 mmol/L Normal 136-145 [facility] Comment on above: Performed By: #### Andi GUY UMICRO #### [facility] [address] [place] [address] Dr. Les Bryan Urea nitrogen [Mass/Vol] 10.0 mg/dL Normal 7.0-18.0 [facility] Comment on above: Performed By: #### Andi GUY UMICRO #### [facility] [address] [place] [address] Dr. Les Bryan Urea nitrogen/Creatinine [Mass ratio] 14.3 mg/mg Normal [facility] Comment on above: Performed By: #### Andi GUY UMICRO #### [facility] [address] [place] [address] Dr. Les Byran TSHon 04-17-2022 TSH 4.067 uIU/mL Critically high 0.358-3.740 [facility] Comment on above: Performed By: #### T SH, DBIL, BNP, FT3, T7, LIPID, CMP #### [facility] [address] [place] [address] Dr. Les Bryan INSULINon 04-06-2022 Insulin 34.6 uIU/mL Critically high 2.6-24.9 [facility] Comment on above: Performed By: #### Andi GUY UMICRO #### [facility] [address] [place] [address] Dr. Les Bryan Physician Referralon 022 Physician Referral [id number] Normal [facility] T4 LABCORPon 04-06-2022 T4 [Mass/Vol] 6.7 ug/dL Normal 4.5-12.0 [facility] Comment on above: Performed By: #### 4 [id number] #### [facility] [address] [place] [address] Dr. Les Bryan BNPon 04-05-2022 Natriuretic peptide B (Bld) [Mass/Vol] 18.0 pg/mL Normal <=450.0 [facility] Comment on above: Performed By: #### E RICARDO GUY #### [facility] [address] [place] [address] Dr. Les Bryan CBC AUTO DIFFon 04-05-2022 BASO # 0.1 103/ul Normal 0.0-0.1 [facility] Comment on above: Performed By: #### 4 [id number] #### [facility] [address] [place] [address] Dr. Les Bryan Basophils/100 WBC (Bld) 0.6 % Normal 0.2-2.0 [facility] Comment on above: Performed By: #### 4 [id number] #### [facility] [address] [place] [address] Dr. Les Bryan EO # 0.2 103/ul Normal 0.0-0.7 [facility] Comment on above: Performed By: #### 4 [id number] #### [facility] [address] [place] [address] Dr. Les Bryan Eosinophils/100 WBC (Bld) 1.9 % Normal 0.9-7.0 [facility] Comment on above: Performed By: #### 4 [id number] #### [facility] [address] [place] [address] Dr. Les Bryan Erythrocyte distribution width (RBC) [Ratio] 13.3 % Normal 11.0-15.0 [facility] Comment on above: Performed By: #### 4 [id number] #### [facility] [address] [place] [address] Dr. Les Bryan Hematocrit (Bld) [Volume fraction] 39.1 % Normal 36.0-48.0 [facility] Comment on above: Performed By: #### 4 [id number] #### [facility] [address] [place] [address] Dr. Les Bryan Hemoglobin (Bld) [Mass/Vol] 13.2 g/dL Normal 12.0-16.0 [facility] Comment on above: Performed By: #### 4 [id number] #### [facility] [address] [place] [address] Dr. Les Bryan IG # 0.08 10e3/ul Critically high 0.00-0.03 [facility] Comment on above: Performed By: #### 4 [id number] #### [facility] [address] [place] [address] Dr. Les Bryan IG % 0.8 % Critically high 0.0-0.5 [facility] Comment on above: Performed By: #### 4 [id number] #### [facility] [address] [place] [address] Dr. Les Bryan LYMPH # 3.0 103/ul Normal 1.2-3.8 [facility] Comment on above: Performed By: #### 4 [id number] #### [facility] [address] [place] [address] Dr. Les Bryan Lymphocytes/100 WBC (Bld) 31.4 % Normal 20.5-60.0 [facility] Comment on above: Performed By: #### 4 [id number] #### [facility] [address] [place] [address] Dr. Les Bryan MANUAL DIFF REQ NO Normal [facility] Comment on above: Performed By: #### 4 [id number] #### [facility] [address] [place] [address] Dr. Les Bryan MCH (RBC) [Entitic mass] 30.1 pg Normal 26.7-34.0 [facility] Comment on above: Performed By: #### 4 [id number] #### [facility] [address] [place] [address] Dr. Les Bryan MCHC (RBC) [Mass/Vol] 33.8 g/dL Normal 29.9-35.2 [facility] Comment on above: Performed By: #### 4 [id number] #### [facility] [address] [place] [address] Dr. Les Bryan MCV (RBC) [Entitic vol] 89.1 fL Normal 81.0-99.0 [facility] Comment on above: Performed By: #### 4 [id number] #### [facility] [address] [place] [address] Dr. Les Bryan MONO # 0.6 103/ul Normal 0.3-0.8 [facility] Comment on above: Performed By: #### 4 [id number] #### [facility] [address] [place] [address] Dr. Les Bryan Monocytes/100 WBC (Bld) 6.1 % Normal 1.7-12.0 [facility] Comment on above: Performed By: #### 4 [id number] #### [facility] [address] [place] [address] Dr. Les Bryan NEUT # 5.6 103/ul Normal 1.4-6.5 [facility] Comment on above: Performed By: #### 4 [id number] #### [facility] [address] [place] [address] Dr. Les Bryan Neutrophils/100 WBC (Bld) 59.2 % Normal 43.0-75.0 [facility] Comment on above: Performed By: #### 4 [id number] #### [facility] [address] [place] [address] Dr. Les Bryan Platelet mean volume (Bld) [Entitic vol] 9.0 fL Critically low 9.5-13.5 [facility] Comment on above: Performed By: #### 4 [id number] #### [facility] [address] [place] [address] Dr. Les Bryan PLT 286 103/ul Normal 150-450 [facility] Comment on above: Performed By: #### 4 [id number] #### [facility] [address] [place] [address] Dr. Les Bryan RBC 4.39 106/ul Normal 4.20-5.40 [facility] Comment on above: Performed By: #### 4 [id number] #### [facility] [address] [place] [address] Dr. Les Bryan WBC 9.5 103/ul Normal 4.0-11.0 [facility] Comment on above: Performed By: #### 4 [id number] #### [facility] [address] [place] [address] Dr. Les Bryan FREE T3on 04-05-2022 FREE T3 2.73 pg/mlL Normal 2.18-3.98 [facility] Comment on above: Performed By: #### RICARDO STEVENSON #### [facility] [address] [place] [address] Dr. Les Bryan FREE THYROXINE INDEX T7on FTI 2.08 Normal 1.30-4.50 [facility] Comment on above: Performed By: #### RICRADO STEVENSON #### [facility] [address] [place] [address] Dr. Les Bryan T3U 31.0 % Normal 30.0-39.0 [facility] Comment on above: Performed By: #### RICARDO STEVENSON #### [facility] [address] [place] [address] Dr. Les Bryan T4 [Mass/Vol] 6.70 ug/dL Normal 4.80-13.90 [facility] Comment on above: Result Comment: T4 t esting performed by [facility] Performed By: #### RICARDO STEVENSON #### [facility] [address] [place] [address] Dr. Les Bryan GLYCOHEMOGLOBIN A1Con 2021 ADA RECOMMENDATION SEE BELOW Normal [facility] Comment on above: Result Comment: ADA RECOMMENDED LIMIT 4.0 - 6.0 ADA THERAPEUTIC TARGET < 7.0 ACTION SUGGESTED > 7.0 Performed By: #### 4 [id number] #### [facility] [address] [place] [address] Dr. Les Bryan Glucose [Mass/Vol] 120 mg/dL Normal [facility] Comment on above: Performed By: #### 4 [id number] #### [facility] [address] [place] [address] Dr. Les Bryan HbA1c (Bld) [Mass fraction] 5.8 % Normal 4.5-6.2 [facility] Comment on above: Performed By: #### 4 [id number] #### [facility] [address] [place] [address] Dr. Les Bryan IRONon 04-05-2022 Iron [Mass/Vol] 105.0 ug/dL Normal 50.0-170.0 [facility] Comment on above: Performed By: #### RICARDO STEVENSON #### [facility] [address] [place] [address] Dr. Les Bryan LIPID PROFILEon 04-05-2022 CHOL-HDL RATIO NORM SEE BELOW Normal [facility] Comment on above: Result Comment: 3.3 - 4.4 LOW RISK 4.4 - 7.1 AVERAGE RISK 7.1 - 11.0 MODERATE RISK >11.0 HIGH RISK Performed By: #### RICARDO STEVENSON #### [facility] [address] [place] [address] Dr. Les Bryan Cholesterol [Mass/Vol] 217 mg/dL Critically high <=200 [facility] Comment on above: Performed By: #### RICARDO STEVENSON #### [facility] [address] [place] [address] Dr. Les Bryan Cholesterol in HDL [Mass/Vol] 49 mg/dL Normal 40-60 [facility] Comment on above: Performed By: #### RICARDO STEVENSON #### [facility] [address] [place] [address] Dr. Les Bryan Cholesterol in LDL [Mass/Vol] 128.2 mg/dL Normal [facility] Comment on above: Performed By: #### Andi GUY, UMICRO #### [facility] [address] [address] [address] Les Bryan Cholesterol.total/Ch olesterol in HDL [Mass ratio] 4.4 {ratio} Normal [facility] Comment on above: Performed By: #### E BROOKS, UMICRO #### [facility] [address] [address] [address] Les Bryan HDL NORMAL > or = 60 mg/dl - LOW CARDIOVASCULAR RISK <40 mg/dl - HIGH CARDIOVASCULAR RISK Normal [facility] Comment on above: Performed By: #### Andi GUY UMICRO #### [facility] [address] [address] [address] Les Bryan LDL CALC NORMAL SEE BELOW Normal [facility] Comment on above: Result Comment: <100 mg/dl OPTIMAL 100 - 129 mg/dl NEAR OR ABOVE OPTIMAL 130 - 159 mg/dl BORDERLINE HIGH 160 - 189 mg/dl HIGH >190 mg/dl VERY HIGH Performed By: #### Andi GUY, UMICRO #### [facility] [address] [address] [address] Les Bryan Triglyceride [Mass/Vol] 199 mg/dL Critically high <=150 [facility] Comment on above: Performed By: #### Andi GUY, UMICRO #### [facility] [address] [place] [address] Dr. Les Bryan VLDL CALC 39.8 mg/dL Normal [facility] Comment on above: Performed By: #### Andi GUY, UMICRO #### [facility] [address] [address] [address] Les Bryan PROF 14(COMP METB)on 022 Albumin [Mass/Vol] 3.8 g/dL Normal 3.4-5.0 [facility] Comment on above: Performed By: #### Andi GUY, UMICRO #### [facility] [address] [address] [address] Les Bryan Albumin/Globulin [Mass ratio] 0.9 {ratio} Normal [facility] Comment on above: Performed By: #### BARBER STEVENSONRO #### [facility] [address] [place] [address] Dr. Les Bryan ALP [Catalytic activity/Vol] 122 U/L Critically high 46-116 [facility] Comment on above: Performed By: #### Andi GUY UMICRO #### [facility] [address] [place] [address] Dr. Les Bryan ALT [Catalytic activity/Vol] 90 U/L Critically high 14-59 [facility] Comment on above: Performed By: #### Andi GUY UMICRO #### [facility] [address] [place] [address] Dr. Les Bryan Anion gap [Moles/Vol] 13.5 mmol/L Normal [facility] Comment on above: Performed By: #### BARBER STEVENSONRO #### [facility] [address] [place] [address] Dr. Les Bryan AST [Catalytic activity/Vol] 63 U/L Critically high 15-37 [facility] Comment on above: Performed By: #### BARBER STEVENSONRO #### [facility] [address] [place] [address] Dr. Les Bryan Bilirubin [Mass/Vol] 0.4 mg/dL Normal 0.2-1.0 [facility] Comment on above: Performed By: #### Andi GUY UMDARCIERO #### [facility] [address] [place] [address] Dr. Les Bryan Calcium [Mass/Vol] 9.3 mg/dL Normal 8.5-10.1 [facility] Comment on above: Performed By: #### BARBER STEVENSONRO #### [facility] [address] [place] [address] Dr. Les Bryan Chloride [Moles/Vol] 103 mmol/L Normal 98-107 [facility] Comment on above: Performed By: #### BARBER STEVENSONRO #### [facility] [address] [place] [address] Dr. Les Bryan CO2 [Moles/Vol] 24.6 mmol/L Normal 21.0-32.0 [facility] Comment on above: Performed By: #### RICARDO STEVENSON #### [facility] [address] [address] [address] Les Bryan Creatinine [Mass/Vol] 0.70 mg/dL Normal 0.55-1.02 [facility] Comment on above: Performed By: #### RICARDO STEVENSON #### [facility] [address] [address] [address] Les Bryan EGFR-AF DUTCH >60 Normal >=60 [facility] Comment on above: Performed By: #### RICARDO STEVENSON #### [facility] [address] [place] [address] Dr. Les Bryan EGFR-NON AF DUTCH >60 Normal >=60 [facility] Comment on above: Performed By: #### RICARDO STEVENSON #### [facility] [address] [address] [address] Les Bryan Globulin (S) [Mass/Vol] 4.1 g/dL Normal [facility] Comment on above: Performed By: #### RICARDO STEVENSON #### [facility] [address] [place] [address] Dr. Les Bryan Glucose [Mass/Vol] 110 mg/dL Critically high 74-106 [facility] Comment on above: Performed By: #### RICARDO STEVENSON #### [facility] [address] [address] [address] Les Bryan Potassium [Moles/Vol] 4.1 mmol/L Normal 3.5-5.1 [facility] Comment on above: Performed By: #### RICARDO STEVENSON #### [facility] [address] [address] [address] Les Bryan Protein [Mass/Vol] 7.9 g/dL Normal 6.4-8.2 [facility] Comment on above: Performed By: #### RICARDO STEVENSON #### [facility] [address] [address] [address] Les Bryan Sodium [Moles/Vol] 137 mmol/L Normal 136-145 [facility] Comment on above: Performed By: #### Andi GUY UMICRO #### [facility] [address] [place] [address] Dr. Les Bryan Urea nitrogen [Mass/Vol] 9.0 mg/dL Normal 7.0-18.0 [facility] Comment on above: Performed By: #### Andi GUY UMICRO #### [facility] [address] [place] [address] Dr. Les Bryan Urea nitrogen/Creatinine [Mass ratio] 12.9 mg/mg Normal [facility] Comment on above: Performed By: #### SABINE STEVENSONICRO #### [facility] [address] [place] [address] Dr. Les Bryan TSHon 04-05-2022 TSH 3.572 uIU/mL Normal 0.358-3.740 [facility] Comment on above: Performed By: #### Andi GUY UMDARCIERO #### [facility] [address] [place] [address] Dr. Les Bryan TSH RANGE SEE BELOW Normal [facility] Comment on above: Result Comment: <0.3 4 UIU/ml HYPERTHYROID 0.34-5.60 UIU/ml EUTHYROID >5.60 UIU/ml HYPOTHYROID Performed By: #### Andi GUY UMICRO #### [facility] [address] [place] [address] Dr. Les Bryan XR KUB 1 VIEWon [...] AMANDA CASSIDY Date: 2022-02-27 15:05 Normal [facility] AMYLASEon 02-25-2022 Amylase [Catalytic activity/Vol] 34 U/L Normal 25-115 [facility] Comment on above: Performed By: #### 4 [id number] #### [facility] [address] [place] [address] Dr. Les Bryan CBC AUTO DIFFon 02-25-2022 BASO # 0.0 103/ul Normal 0.0-0.1 [facility] Comment on above: Performed By: #### C BC #### [facility] [address] [place] [address] Dr. Les Bryan Basophils/100 WBC (Bld) 0.4 % Normal 0.2-2.0 [facility] Comment on above: Performed By: #### C BC #### [facility] [address] [place] [address] Dr. Les Bryan EO # 0.3 103/ul Normal 0.0-0.7 [facility] Comment on above: Performed By: #### C BC #### [facility] [address] [place] [address] Dr. Les Bryan Eosinophils/100 WBC (Bld) 3.6 % Normal 0.9-7.0 [facility] Comment on above: Performed By: #### C BC #### [facility] [address] [place] [address] Dr. Les Bryan Erythrocyte distribution width (RBC) [Ratio] 13.1 % Normal 11.0-15.0 [facility] Comment on above: Performed By: #### C BC #### [facility] [address] [place] [address] Dr. Les Bryan Hematocrit (Bld) [Volume fraction] 40.6 % Normal 36.0-48.0 [facility] Comment on above: Performed By: #### C BC #### [facility] [address] [place] [address] Dr. Les Bryan Hemoglobin (Bld) [Mass/Vol] 13.3 g/dL Normal 12.0-16.0 [facility] Comment on above: Performed By: #### C BC #### [facility] [address] [place] [address] Dr. Les Bryan IG # 0.06 10e3/ul Critically high 0.00-0.03 [facility] Comment on above: Performed By: #### C BC #### [facility] [address] [place] [address] Dr. Les Bryan IG % 0.6 % Critically high 0.0-0.5 [facility] Comment on above: Performed By: #### C BC #### [facility] [address] [place] [address] Dr. Les Bryan LYMPH # 3.6 103/ul Normal 1.2-3.8 [facility] Comment on above: Performed By: #### C BC #### [facility] [address] [place] [address] Dr. Les Bryan Lymphocytes/100 WBC (Bld) 38.2 % Normal 20.5-60.0 [facility] Comment on above: Performed By: #### C BC #### [facility] [address] [place] [address] Dr. Les Brayn MANUAL DIFF REQ NO Normal [facility] Comment on above: Performed By: #### C BC #### [facility] [address] [place] [address] Dr. Les Bryan MCH (RBC) [Entitic mass] 29.7 pg Normal 26.7-34.0 [facility] Comment on above: Performed By: #### C BC #### [facility] [address] [place] [address] Dr. Les Bryan MCHC (RBC) [Mass/Vol] 32.8 g/dL Normal 29.9-35.2 [facility] Comment on above: Performed By: #### C BC #### [facility] [address] [place] [address] Dr. Les Bryan MCV (RBC) [Entitic vol] 90.6 fL Normal 81.0-99.0 [facility] Comment on above: Performed By: #### C BC #### [facility] [address] [place] [address] Dr. Les Bryan MONO # 0.5 103/ul Normal 0.3-0.8 [facility] Comment on above: Performed By: #### C BC #### [facility] [address] [place] [address] Dr. Les Bryan Monocytes/100 WBC (Bld) 5.4 % Normal 1.7-12.0 [facility] Comment on above: Performed By: #### C BC #### [facility] [address] [place] [address] Dr. Les Bryan NEUT # 4.9 103/ul Normal 1.4-6.5 [facility] Comment on above: Performed By: #### C BC #### [facility] [address] [place] [address] Dr. Les Bryan Neutrophils/100 WBC (Bld) 51.8 % Normal 43.0-75.0 [facility] Comment on above: Performed By: #### C BC #### [facility] [address] [place] [address] Dr. Les Bryan Platelet mean volume (Bld) [Entitic vol] 9.2 fL Critically low 9.5-13.5 [facility] Comment on above: Performed By: #### C BC #### [facility] [address] [place] [address] Dr. Les Bryan PLT 335 103/ul Normal 150-450 [facility] Comment on above: Performed By: #### C BC #### [facility] [address] [place] [address] Dr. Les Bryan RBC 4.48 106/ul Normal 4.20-5.40 [facility] Comment on above: Performed By: #### C BC #### [facility] [address] [place] [address] Dr. Les Bryan WBC 9.4 103/ul Normal 4.0-11.0 [facility] Comment on above: Performed By: #### C BC #### [facility] [address] [address] [address] ABD/PELVIS WO CONon [...] IWONA BRITT Date: 2022-02-25 19:05 Normal [facility] ER URINE PROFILEon 2 Bilirubin Ql (U) Negative Normal NEGATIVE [facility] [place] Comment on above: Performed By: #### E RUR, UMICRO #### [facility] [address] [place] [address] Dr. Les Bryan Clarity (U) CLEAR Normal CLEAR [facility] Comment on above: Performed By: #### SABINE STEVENSONICRO #### [facility] [address] [place] [address] Dr. Les Bryan Color (U) YELLOW Normal YELLOW [facility] Comment on above: Performed By: #### SABINE STEVENSONICRO #### [facility] [address] [place] [address] Dr. Les MOY A micrscopic examination will be performed if indicated. Normal [facility] Comment on above: Performed By: #### SABINE STEVENSONICRO #### [facility] [address] [place] [address] Dr. Les Bryan Glucose Ql (U) Negative Normal NEGATIVE [facility] Comment on above: Performed By: #### BARBER STEVENSONRO #### [facility] [address] [place] [address] Dr. Les Bryan Hemoglobin Ql (U) LARGE Abnormal NEGATIVE [facility] Comment on above: Performed By: #### BARBER STEVENSONRO #### [facility] [address] [place] [address] Dr. Les Bryan Ketones Ql (U) Negative Normal NEGATIVE [facility] Comment on above: Performed By: #### BARBER STEVENSONRO #### [facility] [address] [place] [address] Dr. Les Bryan LEUKOCYTES TRACE Abnormal NEGATIVE [facility] Comment on above: Performed By: #### BARBER STEVENSONRO #### [facility] [address] [place] [address] Dr. Les Bryan Nitrite Ql (U) Negative Normal NEGATIVE [facility] Comment on above: Performed By: #### SABINE STEVENSONICRO #### [facility] [facility] [address] [place] [address] Dr. Les Bryan pH (U) 7.0 [pH] Normal 5-9 [facility] Comment on above: Performed By: #### BARBER STEVENSONRO #### [facility] [address] [place] [address] Dr. Les Bryan Protein (U) [Mass/Vol] 30 mg/dL Abnormal NEGATIVE/ TRACE [facility] Comment on above: Performed By: #### BARBER STEVENSONRO #### [facility] [address] [place] [address] Dr. Les Bryan SPEC GRAVITY 1.025 Normal 1.005-<=1.025 [facility] Comment on above: Performed By: #### BARBER STEVENSONRO #### [facility] [address] [place] [address] Dr. Les Bryan UR MICRO IND INDICATED Normal [facility] Comment on above: Performed By: #### BARBER STEVENSONRO #### [facility] [address] [place] [address] Dr. Les Bryan Urobilinogen Qn (U) 0.2 {Racquel'U}/dL Normal 0.2 - 1. 0 [facility] Comment on above: Performed By: #### RICARDO STEVENSON #### [facility] [address] [place] [address] Dr. Les Bryan LIPASEon 02-25-2022 Lipase [Catalytic activity/Vol] 82.0 U/L Normal 73.0-393.0 [facility] Comment on above: Performed By: #### [id number] #### [facility] [address] [place] [address] Dr. Les Bryan PROF 14(COMP METB)on 022 Albumin [Mass/Vol] 3.7 g/dL Normal 3.4-5.0 [facility] Comment on above: Performed By: #### [id number] #### [facility] [address] [place] [address] Dr. Les Bryan Albumin/Globulin [Mass ratio] 0.9 {ratio} Normal [facility] Comment on above: Performed By: #### 4 [id number] #### [facility] [address] [address] [address] Les Bryan ALP [Catalytic activity/Vol] 129 U/L Critically high 46-116 [facility] Comment on above: Performed By: #### 4 [id number] #### [facility] [address] [address] [address] Les Bryan ALT [Catalytic activity/Vol] 86 U/L Critically high 14-59 [facility] Comment on above: Performed By: #### 4 [id number] #### [facility] [address] [address] [address] Les Bryan Anion gap [Moles/Vol] 15.3 mmol/L Normal [facility] Comment on above: Performed By: #### 4 [id number] #### [facility] [address] [address] [address] Les Bryan AST [Catalytic activity/Vol] 51 U/L Critically high 15-37 [facility] Comment on above: Performed By: #### 4 [id number] #### [facility] [address] [address] [address] Les Bryan Bilirubin [Mass/Vol] 0.2 mg/dL Normal 0.2-1.0 [facility] Comment on above: Performed By: #### 4 [id number] #### [facility] [address] [address] [address] Les Bryan Calcium [Mass/Vol] 8.4 mg/dL Critically low 8.5-10.1 [facility] Comment on above: Performed By: #### 4 [id number] #### [facility] [address] [address] [address] Les Bryan Chloride [Moles/Vol] 103 mmol/L Normal 98-107 [facility] Comment on above: Performed By: #### 4 [id number] #### [facility] [address] [address] [address] Les Bryan CO2 [Moles/Vol] 26.2 mmol/L Normal 21.0-32.0 [facility] Comment on above: Performed By: #### 4 [id number] #### [facility] [address] [address] [address] Les Bryan Creatinine [Mass/Vol] 0.72 mg/dL Normal 0.55-1.02 [facility] Comment on above: Performed By: #### 4 [id number] #### [facility] [address] [address] [address] eLs Bryan EGFR-AF DUTCH >60 Normal >=60 [facility] Comment on above: Performed By: #### 4 [id number] #### [facility] [address] [address] [address] Les Bryan EGFR-NON AF DUTCH >60 Normal >=60 [facility] Comment on above: Performed By: #### 4 [id number] #### [facility] [address] [place] [address] Dr. Les Bryan Globulin (S) [Mass/Vol] 4.2 g/dL Normal [facility] Comment on above: Performed By: #### 4 [id number] #### [facility] [address] [place] [address] Dr. Les Bryan Glucose [Mass/Vol] 121 mg/dL Critically high 74-106 [facility] Comment on above: Performed By: #### 4 [id number] #### [facility] [address] [place] [address] Dr. Les Bryan Potassium [Moles/Vol] 3.5 mmol/L Normal 3.5-5.1 [facility] Comment on above: Performed By: #### 4 [id number] #### [facility] [address] [place] [address] Dr. Les Bryan Protein [Mass/Vol] 7.9 g/dL Normal 6.1-8.2 [facility] Comment on above: Performed By: #### 4 [id number] #### [facility] [address] [place] [address] Dr. Les Bryan Sodium [Moles/Vol] 141 mmol/L Normal 136-145 [facility] Comment on above: Performed By: #### 4 [id number] #### [facility] [address] [place] [address] Dr. Les Bryan Urea nitrogen [Mass/Vol] 14.0 mg/dL Normal 7.0-18.0 [facility] Comment on above: Performed By: #### 4 [id number] #### [facility] [address] [place] [address] Dr. Les Bryan Urea nitrogen/Creatinine [Mass ratio] 19.4 mg/mg Normal [facility] Comment on above: Performed By: #### 4 [id number] #### [facility] [address] [place] [address] Dr. Les Bryan URINE MICROSCOPIC ONLYon BACTERIA TRACE Abnormal NONE SEEN [facility] Comment on above: Performed By: #### SABINE STEVENSONICRO #### [facility] [address] [place] [address] Dr. Les Bryan Bacteria identified Cx Nom (U) NOT INDICATED Normal [facility] Comment on above: Performed By: #### Andi GUY UMICRO #### [facility] [address] [place] [address] Dr. Les Bryan CAST NONE SEEN Normal NONE SEEN [facility] Comment on above: Performed By: #### Andi GUY UMICRO #### [facility] [address] [place] [address] Dr. Les Bryan Crystals LM Nom (Urine sed) NONE SEEN Normal NONE SEEN [facility] Comment on above: Performed By: #### Andi GUY UMICRO #### [facility] [address] [place] [address] Dr. Les Bryan Epithelial cells LM Ql (Urine sed) MODERATE Abnormal NONE SEEN /RARE [facility] Comment on above: Performed By: #### Andi UGY UMICRO #### [facility] [address] [place] [address] Dr. Les Bryan MUCOUS NONE SEEN Normal NONE SEEN [facility] Comment on above: Performed By: #### Andi GUY UMICRO #### [facility] [address] [place] [address] Dr. Les Bryan RBC 20-50 Abnormal 0-2 [facility] Comment on above: Result Comment: cren ated RBCs Performed By: #### RICARDO STEVENSON #### [facility] [address] [place], [place] [address] Dr. Les Bryan WBC 2-5 Abnormal NONE SEEN [facility] Comment on above: Performed By: #### Andi GUY, RICARDO #### [facility] [address] [place], [place] [address] Dr. Les Bryan Vital Signs Date Time Vital Sign Value Performing Clinician Facility 09-13-2023 10:30-0500 Body height 162.56 cm Shae Love Other [facility] Other 09-13-2023 10:30-0500 Body mass index (BMI) [Ratio] 23.14 kg/m2 Shae Love Other [facility] Other 09-13-2023 10:30-0500 Body temperature 98.4 [degF] Shae Love Other [facility] Other 09-13-2023 10:30-0500 Body weight 61.15 kg Shae Love Other [facility] Other 09-13-2023 10:30-0500 Respiratory rate 18 /min Shae Love Other [facility] Other 09-13-2023 10:30-0500 SaO2% (BldA) [Mass fraction] 99 % Shae Love Other [facility] Other 04-21-2022 09:07-0400 Blood Pressure Location Jl FREDERICK [facility] [place] 04-21-2022 09:07-0400 Diastolic blood pressure 86 mm[Hg] Jl FREDERICK [facility] [place] 04-21-2022 09:07-0400 Heart rate 92 /min Jl YULIANAL [facility] [place] 04-21-2022 09:07-0400 Respiratory rate 16 /min Jl BRIDGESL [facility] 04-21-2022 09:07-0400 Systolic blood pressure 127 mm[Hg] Jl BRIDGESL [facility] Encounters Encounter Date Encounter Type Care Provider Facility Start: 09-13-2023 Office outpatient ne w 20 minutes Shae Love [facility] Start: 09-13-2023 End: 09-13-2023 ambulatory Shae Love [facility] [employer] Other Start: 09-13-2023 End: 09-13-2023 Patient encounter procedure TANDEM [facility] [employer]ER Shae Love Work Phone: [facility] Work Phone: Start: 10-09-2022 End: 10-10-[address] ANGELICA DE Facility:[facility] Start: 09-04-2022 End: 09-04-[address] ANGELICA DE Facility:[facility] Start: 09-01-2022 End: 09-02-[address] ANGELICA DE Facility:[facility] Start: 05-30-2022 End: 05-30-[address] ANGELICA DE Facility:[facility] Start: 05-12-2022 End: 05-12-2022 Patient encounter procedure Jl FREDERICK [facility] [place] Start: 05-03-2022 End: 05-03-2022 Patient encounter procedure Jl FREDERICK [facility] [place] Start: 04-21-2022 End: 04-21-2022 Patient encounter procedure Jl Nieves YOLY [facility] [place] Start: 04-20-[address] ANGELICA DE Facility :[facility] Start: 04-17-2022 End: 04-18-[address] ANGELICA DE Facility:[facility] Start: 04-05-2022 End: 04-06-[address] ANGELICA DE Facility:[facility] Start: 02-27-2022 End: 02-28-[address] ANGELICA DE Facility:[facility] Start: 02-25-2022 End: 02-25-2022 ambulatory EMILY MCDERMOTT Facility:[facility] Procedures Date Procedure Procedure Detail Performing Clinician Start: 09-13-2023 Radiologic examinati on of knee TANDEM [employer]ICKER Shae Love Work Phone: Start: 05-03-2022 Excision of dermatofibroma Jl YOLY Comment on above: left ankle Start: 07-08-2015 laparoscopic cholecy stectomy with intraoperative cholangiogram Jl FREDERICK Abdominal hysterectomy Sebastian munguia YOLY Bilateral complete salpingectomy Jl FREDERICK Diagnostic laparoscopy Sebastian FREDERICK Loop electrosurgical excision procedure Jl FREDERICK Payers Date Payer Category Payer Unknown [id number] 2.16.84 [id number] 1979 Unknown [id number] 2.16.84 [id number] 1979 Unknown [id number] 2.16.84 [id number] 1979 Unknown [id number] 2.16.84 [id number] 1979 Unknown [id number] 2.16.84 [id number] 1979 Unknown [id number] 2.16.84 [id number] 1979 Unknown [id number] 2.16.84 [id number] 1979 Unknown [id number] 2.16.84 [id number] 1979 Unknown [id number] 2.16.84 [id number] 1959 Self-pay 1960 Unknown [id number] Unknown [id number] 2.16.8 [id number] Social History Date Type Detail Facility Start: 04-21-2022 Tobacco smoking status Ex-smoker (fi nding) [facility] Tobacco smoking status Never [facility] Sex Assigned At Female [facility] Start: 1980 Sex Assigned At Female F [facility] Functional Status Date Assessment Result Facility 04-21-2022 Functional Status N/A [facility] Evaluation note 09-13-2023 Note Date & Type [...] understanding and is agreeable to treatment plan [employer] [facility] Other Clinical Note 04-21-2022 Note Date & [...] malignant neoplasm of bladder: Father. [facility] Comment on above: Result Comment: Elec tronically Signed By: Jl FREDERICK MD\.br\Date and Time Signed: 04/21/22 09:48 EDT Evaluation + Plan note Note Date & Type Note Facility Evaluation + Plan note Future Appointments Appointment Date:05/03/2022 03:00:00 PM Scheduled Provider:Jl FREDERICK MD Location:[facility] Appointment Type: Procedure 30 [facility] [place] Evaluation + Plan note Note Date & Type Note Facility Evaluation + Plan note Future Appointments Appointment Date:05/12/2022 03:40:00 PM Scheduled Provider:Jl FREDERICK MD Location:[facility] Appointment Type: Post Op 15 [facility] [place] Evaluation note Note Date & Type Note Facility Evaluation note No assessment information availa [facility] Work Phone: History general Narrative - Reported Note Date & Type Note Facility History general Narrative - Reported Type Medical History Anxiety disorder Medical History chronic depression Medical History thyriod Surgical History LEAP [employer] [facility] Other Hospital course Narrative Note Date & Type Note Facility Hospital course Narrative No data available for this section [facility] [place] Hospital Discharge instructions Note Date & Type Note Facility Hospital Discharge instructions No data available for this section [facility] [place] Progress note Note Date & Type Note Facility Progress note No data available for this section [facility] [place] Summary Purpose Family History No Family History [...] section and content) DATE CREATED AUTHOR 05/16/2022 [facility] DATE CREATED AUTHOR AUTHOR'S ORGANIZ ATION 10/20/2022 [facility] DATE CREATED AUTHOR AUTHOR'S ORGANIZ ATION 12/07/2023 [facility] REASON FOR VISIT (unrecogniz ed section [...] BE BASED ON THE PRIMARY CLINICAL RECORDS. [facility] [employer] [facility]. provides no warranty or guarantee of the accuracy or completeness of information in this document.
== END 2024-03-14 13:28 | disposition home or self-care (01) ==
LOC: US 13:28
PROVIDERS: PCP Family Medicine; Visit Provider Family Medicine
DX: R60.0 Localized edema (principal)
CPT/HCPCS: 93971

== ENCOUNTER 2024-04-18 16:32 | Outpatient (OUT) | payer BC, SELFPAY ==
--- OUTSIDE RECORDS SUMMARY | 2024-04-18 16:47 | XMS_ITS | CCD ---
Author Organization [facility] CliniSypr Care Team Providers Care Risk Control Director Name Role Phone Angelica De Primary Care Physician DR ANGELICA ED Primary Care Unavailable BEA FARMER Consulting Unavailable BEA FARMER Attending Unavailable BEA FARMER Admitting Unavailable JEREMÍAS, DR DOMINGUEZ Primary Care Unavailable JEREMÍAS, DR DOMINGUEZ Consulting Unavailable JEREMÍAS, DR DOMINGUEZ Attending Unavailable JEREMÍAS, DR DOMINGUEZ Admitting Unavailable RUTHIE, DR BELIA Xiong Consulting Unavailable ELIEZER, DR BRIGHT Consulting Unavailable JEREMÍAS, DR DOMINGUEZ Primary Care Unavailable ELIEZER, DR BRIGHT Consulting Unavailable ELIEZER, DR BRIGHT Attending Unavailable ELIEZER, DR BRIGHT Admitting Unavailable EMILY MCDERMOTT Attending Unavailable SHARRON, EMILY Admitting Unavailable JEREMÍAS, DR DOMINGUEZ Primary Care Unavailable NIKITA JOHNSON Consulting Unavailable IWONA BRITT Consulting Unavailable EMILY MCDERMOTT Consulting Unavailable JEREMÍAS, DR DOMINGUEZ Primary Care Unavailable JEREMÍAS, DR DOMINGUEZ Attending Unavailable JEREMÍAS, DR DOMINGUEZ Admitting Unavailable DWAINY, DR DOMINGUEZ Primary Care Unavailable JEREMÍAS, DR DOMINGUEZ Consulting Unavailable JEREMÍAS, DR DOMINGUEZ Attending Unavailable JEREMÍAS, DR DOMINGUEZ Admitting Unavailable JEREMÍAS, DR DOMINGUEZ Primary Care Unavailable JEREMÍAS, DR DOMINGUEZ Consulting Unavailable JEREMÍAS, DR DOMINGUEZ Attending Unavailable JEREMÍAS, DR DOMINGUEZ Admitting Unavailable JEREMÍAS, DR DOMINGUEZ Admitting Unavailable JEREMÍAS, DR DOMINGUEZ Primary Care Unavailable JEREMÍAS, DR DOMINGUEZ Consulting Unavailable JEREMÍAS, DR DOMINGUEZ Attending Unavailable KHANH, DR AMANDA Nieves Consulting Unavailable JEREMÍAS, DR DOMINGUEZ Primary Care Unavailable JEREMÍAS, DR DOMINGUEZ Consulting Unavailable JEREMÍAS, DR DOMINGUEZ Attending Unavailable JEREMÍAS, DR DOMINGUEZ Admitting Unavailable ZININI, DR AMANDA Nieves Consulting Unavailable Shae Love Unavailable RUBY Love Attending Provider Shae Love Attending Unavailable Shae Love Admitting Unavailable Allergies Allergy Classification Reported Allergen(s) Allergy Type Date of Onset Reaction(s) Facility (5 sources) Latex; Translations: [Latex] Drug allergy 3 Eruption of skin (disorder), rash [facility] (4 sources) Sulfamethoxazole / Trimethoprim; Translations: [sulfamethoxazole-tr imethoprim] Drug Allergy Weal (disorder), hives [facility] (2 sources) natural latex rubber Drug allergy (disorder) [facility] Repository (2 sources) Sulfamethoxazole / Trimethoprim Drug Allergy [facility] Repository (1 source) Sulfamethoxazole Drug Allergy 3 [facility] Repository (1 source) Trimethoprim Drug Allergy 3 [facility] Repository Medications Current Medications Medication [...] (1 source) l-Thyroxine Levothyroxine So dium Not-Taking [place] (1 source) [place] Not- Taking Problems Active Problems Problem Classification [...] LT 4V*on 09-13-2023 XR knee LT 4V* [facility] [employer] Other XR knee LT 4V* [facility] [employer] Other XR knee LT 4V* [address] [place] [address] [employer] Other XR knee LT 4V* [place] [address] [facility] [employer] Other XR knee LT 4V* XRay Report [employer] Other XR knee LT 4V* Signed [employer] Other XR knee LT 4V* Patient: Josephine Herndon MR#: [id number] [employer] Other XR knee LT 4V* 8 [employer] Other XR knee LT 4V* : 1980 Acct:[id number] [employer] Other XR knee LT 4V* Age/Sex: 43 / F ADM Date: 09/13/23 [employer] Other XR knee LT 4V* Loc: XDUCLY Room: Type: REG CLI [employer] Other XR knee LT 4V* Attending Dr: Shae Love [facility] [employer] Other XR knee LT 4V* Copies to: Shae Love APRN [employer] Other XR knee LT 4V* Ordering Provider: Shae Love APRN [employer] Other XR knee LT 4V* Date of Service: 09/13/23 [employer] Other XR knee LT 4V* XR/XR knee LT 4V*: Injury [employer] Other XR knee LT 4V* XR knee LT 4V* 09/13/2023 10:51 AM [employer] Other XR knee LT 4V* SIGNS AND SYMPTOMS: Twisting injury to left knee with pain and swelling medially [employer] Other XR knee LT 4V* PROTOCOL: Frontal, lateral, and oblique radiographs of the left knee [employer] Other XR knee LT 4V* COMPARISON: None [employer] Other XR knee LT 4V* FINDINGS: [employer] Other XR knee LT 4V* The joint spaces are preserved. There is a moderate joint effusion. There is no evidence of fracture [employer] Other XR knee LT 4V* or dislocation. No significant soft tissue swelling. [employer] Other XR knee LT 4V* XR/XR knee LT 4V* [employer] Other XR knee LT 4V* IMPRESSION: [employer] Other XR knee LT 4V* No fracture. [employer] Other XR knee LT 4V* There is a moderate joint effusion. [employer] Other XR knee LT 4V* Impression dictated by: Donato Rockwell M.D.09/13/2023 11:19 AM [employer] Other XR knee LT 4V* Dictation Location: [place] [address] [employer] Other XR knee LT 4V* Transcribed By: [facility] 09/13/23 [facility] [employer] Other XR knee LT 4V* Dictated By: Donato Rockwell II, MD 09/13/23 [facility] [employer] Other XR knee LT 4V* Signed By: [employer] Other XR knee LT 4V* 09/13/23 [facility] [employer] [place] Other XR knee LT 4V* [facility] Main [place] [address] [place] [address] XRay Report Signed Patient: Josephine Herndon MR#: [id number] : 1980 Acct:[id number] Age/Sex: 43 / F ADM Date: 09/13/23 Loc: XDUCLY Room: Type: [facility] CLI Attending Dr: Shae Love APRN Copies to: Shae Love APRN Ordering Provider: Shae Love APRN Date of Service: 09/13/23 XR/XR knee LT [...] Donato Rockwell M.D.09/13/2023 11:19 AM Dictation Location: [place] [address] Transcribed By: [facility] 09/13/23 111 Dictated By: Donato Rockwell II, MD 09/13/23 1118 Signed By: 09/13/23 [address] [facility] [address] CHEST WO CONon 10-10-2022 [...] AMANDA CASSIDY Date: 2022-10-10 10:35 Normal [facility] Covid-19 PCR (CVDTB)on SARS-CoV-2 (COVID-19) RNA RAYMOND+probe Ql (Unsp spec) Not detected Normal NOT DETECTED [facility] Comment on above: Result Comment: When diagnostic [...] for this test is supported by the [place] of Health and Human Service's declaration that [...] longer be used). Performed By: #### C [facility] #### [facility] [address] [place] [address] CHEST WO CONon [...] by: BELIA HENDRICKS Date: 2022-09-01 09:55 Normal [facility] MAMM SCREEN 3D GUSTAVO CADon 09-01-2022 MG MAMM SCREEN 3D GUSTAVO CAD Patient: JOSEPHINE HERNDON Exam Date: 09/01/2022 : 1980 Gender:F Ordering : DR ANGELICA DE . Admission #: [id number] Family : Order #: [id number] CLICK HERE TO VIEW EXAM RADIOLOGY REPORT [...] bladder cancer at age 59. LOCATION: [facility] BREAST COMPOSITION: Scattered areas fibroglandular density. FINDINGS: [...] Hendricks MD on 09/01/2022 at 09:32 Normal [facility] PAP ACOG PANEL 2: 21 to 29on 06-02-2022 . . Normal [facility] Comment on above: Result Comment: Perf ormed at: WB Performed By: #### [id number] #### [facility] [address] [place] [address] Dr. Les Bryan Age Gdln ACOG Testing 30-65 Normal [facility] Comment on above: Performed By: #### [id number] #### [facility] [address] [address] [address] Les Bryan DIAGNOSIS: Comment Normal [facility] Comment on above: Result Comment: NEGA TIVE FOR INTRAEPITHELIAL LESION OR MALIGNANCY. Performed at: WB Performed By: #### [id number] #### [facility] [address] [place] [address] Dr. Les Bryan HPV Aptima Negative Normal Negative [facility] Comment on above: Result Comment: This nucleic acid amplification test detects fourteen high-risk HPV types (16,18,31,33,35,39,45,51,52,56,58,59,66,68) without differentiation. Performed at: =G Performed By: #### [id number] #### [facility] [address] [place] [address] Dr. Les Bryan Methodology: Comment Normal [facility] Comment on above: Result Comment: This liquid based ThinPrep(R) pap test was screened with the use of an image guided system. Performed at: WB Performed By: #### [id number] #### [facility] [address] [place] [address] Dr. Les Bryan Note: Comment Normal [facility] Comment on above: Result Comment: The Pap smear is a screening test designed to aid in the detection of premalignant and malignant conditions of the uterine cervix. It is not a diagnostic procedure and should not be used as the sole means of detecting cervical cancer. Both false-positive and false-negative reports do occur. . Performed at: WB Performed By: #### [id number] #### [facility] [address] [place] [address] Dr. Les Bryan Performed by: Comment Normal [facility] Comment on above: Result Comment: Bella Cuevas, Heading And Priming Tool Setter (ASCP) Performed at: WB Performed By: #### [id number] #### [facility] [address] [address] [address] Les Bryan Specimen adequacy: Comment Normal [facility] Comment on above: Result Comment: Sati sfactory for evaluation. Endocervical and/or squamous metaplastic cells (endocervical component) are present. Performed at: WB Performed By: #### 4 [id number] #### [facility] [address] [place] [address] [address] Les Bryan General Surgery Office/Clini c [...] Primary malignant neoplasm of bladder: Father. Normal [facility] Comment on [...] no longer receiving treatment for. Migraine Psoriasis Normal [facility] General Surgery Office/Clini c Noteon [...] Primary malignant neoplasm of bladder: Father. Normal [facility] Comment on above: Result Comment: Elec tronically Signed By: YOLY AKBAR, Jl Nieves\.br\Date and Time Signed: 05/12/22 16:00 EDT Pathology Noteon 05-08-2022 Pathology Note [id number] #[id number] Normal [facility] Ambulatory Visit Summaryon 0 05-03-2022 Ambulatory Visit Summary JOSEPHINE HERNDON :1980 Visit Date:05/03/2022 Ambulatory Visit Instructions Your Care Team Attending Physician - YOLY AKBAR, Jl Nieves Primary Care Physician - Angeliac De MD This Is Your Medications List [...] Jl FREDERICK MD Where: General Surgery Nill/Said [facility] Ambulatory Visit Summaryon 0 04-21-2022 Ambulatory [...] Jl FREDERICK MD Where: General Surgery Nill/Said [facility] HEPATITIS PANEL, ACUTEon HBsAg Screen Negative Normal Negative [facility] Comment on above: Performed By: #### H EPACUT #### [facility] [address] [place] [address] [address] Les Bryan HCV AB 0.2 s/co ratio Normal 0.0-0.9 [facility] Comment on above: Performed By: #### H EPACUT #### [facility] [address] [address] [address] eLs Bryan Hep A Ab, IgM Negative Normal Negative [facility] Comment on above: Performed By: #### H EPACUT #### [facility] [address] [place] [address] [address] Les Bryan Hep B Core Ab, IgM Negative Normal Negative [facility] Comment on above: Performed By: #### H EPACUT #### [facility] [address] [address] [address] Les Bryan Interpretation: Comment Normal [facility] Comment on above: Result Comment: Nega tive Not infected with HCV, unless recent infection is suspected or other evidence exists to indicate HCV infection. Performed By: #### H EPACUT #### [facility] [address] [place] [address] Dr. Les Bryan INSULINon 04-18-2022 Insulin 18.8 uIU/mL Normal 2.6-24.9 [facility] Comment on above: Performed By: #### I NSULIN #### [facility] [address] [place] [address] Dr. Les Bryan BILIRUBIN CONJUGATED (DIRECT )on 04-17-2022 BILI, CONJUGATED 0.1 mg/dL Normal 0.0-0.2 [facility] Comment on above: Performed By: #### RICARDO STEVENSON #### [facility] [address] [place] [address] Dr. Les Bryan BNPon 04-17-2022 Natriuretic peptide B (Bld) [Mass/Vol] 12.0 pg/mL Normal <=450.0 [facility] Comment on above: Performed By: #### RICARDO STEVENSON #### [facility] [address] [place] [address] Dr. Les Bryan CBC AUTO DIFFon 04-17-2022 BASO # 0.1 103/ul Normal 0.0-0.1 [facility] Comment on above: Performed By: #### C BC #### [facility] [address] [place] [address] Dr. Les Bryan Basophils/100 WBC (Bld) 0.6 % Normal 0.2-2.0 [facility] Comment on above: Performed By: #### C BC #### [facility] [address] [address] [address] Les Bryan EO # 0.3 103/ul Normal 0.0-0.7 [facility] Comment on above: Performed By: #### C BC #### [facility] [address] [address] [address] Les Bryan Eosinophils/100 WBC (Bld) 3.0 % Normal 0.9-7.0 [facility] Comment on above: Performed By: #### C BC #### [facility] [address] [address] [address] Les Bryan Erythrocyte distribution width (RBC) [Ratio] 13.2 % Normal 11.0-15.0 [facility] Comment on above: Performed By: #### C BC #### [facility] [address] [place] [address] Dr. Les Bryan Hematocrit (Bld) [Volume fraction] 40.8 % Normal 36.0-48.0 [facility] Comment on above: Performed By: #### C BC #### [facility] [address] [place] [address] Dr. Les Bryan Hemoglobin (Bld) [Mass/Vol] 13.4 g/dL Normal 12.0-16.0 [facility] Comment on above: Performed By: #### C BC #### [facility] [address] [place] [address] Dr. Les Bryan IG # 0.07 10e3/ul Critically high 0.00-0.03 [facility] Comment on above: Performed By: #### C BC #### [facility] [address] [address] [address] Les Bryan IG % 0.8 % Critically high 0.0-0.5 [facility] Comment on above: Performed By: #### C BC #### [facility] [address] [place] [address] Dr. Les Bryan LYMPH # 2.8 103/ul Normal 1.2-3.8 [facility] Comment on above: Performed By: #### C BC #### [facility] [address] [place] [address] Dr. Les Bryan Lymphocytes/100 WBC (Bld) 31.7 % Normal 20.5-60.0 [facility] Comment on above: Performed By: #### C BC #### [facility] [address] [place] [address] Dr. Les Bryan MANUAL DIFF REQ NO Normal [facility] Comment on above: Performed By: #### C BC #### [facility] [address] [place] [address] Dr. Les Bryan MCH (RBC) [Entitic mass] 29.5 pg Normal 26.7-34.0 [facility] Comment on above: Performed By: #### C BC #### [facility] [address] [place] [address] Dr. Les Bryan MCHC (RBC) [Mass/Vol] 32.8 g/dL Normal 29.9-35.2 [facility] Comment on above: Performed By: #### C BC #### [facility] [address] [place] [address] Dr. Les Bryan MCV (RBC) [Entitic vol] 89.9 fL Normal 81.0-99.0 [facility] Comment on above: Performed By: #### C BC #### [facility] [address] [place] [address] Dr. Les Bryan MONO # 0.4 103/ul Normal 0.3-0.8 [facility] Comment on above: Performed By: #### C BC #### [facility] [address] [place] [address] Dr. Les Bryan Monocytes/100 WBC (Bld) 4.7 % Normal 1.7-12.0 [facility] Comment on above: Performed By: #### C BC #### [facility] [address] [place] [address] Dr. Les Bryan NEUT # 5.3 103/ul Normal 1.4-6.5 [facility] Comment on above: Performed By: #### C BC #### [facility] [address] [address] [address] Les Bryan Neutrophils/100 WBC (Bld) 59.2 % Normal 43.0-75.0 [facility] Comment on above: Performed By: #### C BC #### [facility] [address] [address] [address] Les Bryan Platelet mean volume (Bld) [Entitic vol] 9.1 fL Critically low 9.5-13.5 [facility] Comment on above: Performed By: #### C BC #### [facility] [address] [place] [address] Dr. Les Bryan PLT 309 103/ul Normal 150-450 [facility] Comment on above: Performed By: #### C BC #### [facility] [address] [place] [address] Dr. Les Bryan RBC 4.54 106/ul Normal 4.20-5.40 [facility] Comment on above: Performed By: #### C BC #### [facility] [address] [place] [address] Dr. Les Bryan WBC 8.9 103/ul Normal 4.0-11.0 [facility] Comment on above: Performed By: #### C BC #### [facility] [address] [place] [address] Dr. Les Bryan FREE T3on 04-17-2022 FREE T3 2.02 pg/mlL Critically low 2.18-3.98 [facility] Comment on above: Performed By: #### BARBER STEVENSONRO #### [facility] [address] [place] [address] Dr. Les Bryan FREE THYROXINE INDEX T7on FTI 2.07 Normal 1.30-4.50 [facility] Comment on above: Performed By: #### BARBER STEVENSONRO #### [facility] [address] [place] [address] Dr. Les Bryan T3U 30.0 % Normal 30.0-39.0 [facility] Comment on above: Performed By: #### RICARDO STEVENSON #### [facility] [address] [address] [address] Les Bryan T4 [Mass/Vol] 6.90 ug/dL Normal 4.80-13.90 [facility] Comment on above: Performed By: #### RICARDO STEVENSON #### [facility] [address] [address] [address] Les Bryan GLYCOHEMOGLOBIN A1Con 2021 ADA RECOMMENDATION SEE BELOW Normal [facility] Comment on above: Result Comment: ADA RECOMMENDED LIMIT 4.0 - 6.0 ADA THERAPEUTIC TARGET < 7.0 ACTION SUGGESTED > 7.0 Performed By: #### A 1C #### [facility] [address] [place] [address] Dr. Les Bryan Glucose [Mass/Vol] 120 mg/dL Normal [facility] Comment on above: Performed By: #### A 1C #### [facility] [address] [address] [address] Les Bryan HbA1c (Bld) [Mass fraction] 5.8 % Normal 4.5-6.2 [facility] Comment on above: Performed By: #### A 1C #### [facility] [address] [place] [address] Dr. Les Bryan IRONon 04-17-2022 Iron [Mass/Vol] 66.0 ug/dL Normal 50.0-170.0 [facility] Comment on above: Performed By: #### RICARDO STEVENSON #### [facility] [address] [place] [address] Dr. Les Bryan LIPID PROFILEon 04-17-2022 CHOL-HDL RATIO NORM SEE BELOW Normal [facility] Comment on above: Result Comment: 3.3 - 4.4 LOW RISK 4.4 - 7.1 AVERAGE RISK 7.1 - 11.0 MODERATE RISK >11.0 HIGH RISK Performed By: #### RICARDO STEVENSON #### [facility] [address] [place] [address] Dr. Les Bryan Cholesterol [Mass/Vol] 244 mg/dL Critically high <=200 [facility] Comment on above: Performed By: #### Andi GUY UMICRO #### [facility] [address] [address] [address] Les Bryan Cholesterol in HDL [Mass/Vol] 55 mg/dL Normal 40-60 [facility] Comment on above: Performed By: #### Andi GUY UMICRO #### [facility] [address] [address] [address] Les Bryan Cholesterol in LDL [Mass/Vol] 155.4 mg/dL Normal [facility] Comment on above: Performed By: #### Andi GUY UMICRO #### [facility] [address] [place] [address] Dr. Les Bryan Cholesterol.total/Ch olesterol in HDL [Mass ratio] 4.4 {ratio} Normal [facility] Comment on above: Performed By: #### Andi GUY UMICRO #### [facility] [address] [place] [address] Dr. Les Bryan HDL NORMAL > or = 60 mg/dl - LOW CARDIOVASCULAR RISK <40 mg/dl - HIGH CARDIOVASCULAR RISK Normal [facility] Comment on above: Performed By: #### Andi GUY UMICRO #### [facility] [address] [place] [address] Dr. Les Bryan LDL CALC NORMAL SEE BELOW Normal [facility] Comment on above: Result Comment: <100 mg/dl OPTIMAL 100 - 129 mg/dl NEAR OR ABOVE OPTIMAL 130 - 159 mg/dl BORDERLINE HIGH 160 - 189 mg/dl HIGH >190 mg/dl VERY HIGH Performed By: #### Andi GUY UMICRO #### [facility] [address] [place] [address] Dr. Les Bryan Triglyceride [Mass/Vol] 168 mg/dL Critically high <=150 [facility] Comment on above: Performed By: #### Andi GUY UMICRO #### [facility] [address] [place] [address] Dr. Les Bryan VLDL CALC 33.6 mg/dL Normal [facility] Comment on above: Performed By: #### BARBER STEVENSONRO #### [facility] [address] [place] [address] Dr. Les Bryan PROF 14(COMP METB)on 022 Albumin [Mass/Vol] 3.9 g/dL Normal 3.4-5.0 [facility] Comment on above: Performed By: #### Andi GUY UMDARCIERO #### [facility] [address] [place] [address] Dr. Les Bryan Albumin/Globulin [Mass ratio] 0.9 {ratio} Normal [facility] Comment on above: Performed By: #### Andi GUY UMICRO #### [facility] [address] [place] [address] Dr. Les Bryan ALP [Catalytic activity/Vol] 137 U/L Critically high 46-116 [facility] Comment on above: Performed By: #### BARBER STEVENSONRO #### [facility] [address] [place] [address] Dr. Les Bryan ALT [Catalytic activity/Vol] 104 U/L Critically high 14-59 [facility] Comment on above: Performed By: #### Andi GUY UMDARCIERO #### [facility] [address] [place] [address] Dr. Les Bryan Anion gap [Moles/Vol] 13.3 mmol/L Normal [facility] Comment on above: Performed By: #### Andi GUY UMDARCIERO #### [facility] [address] [place] [address] Dr. Les Bryan AST [Catalytic activity/Vol] 59 U/L Critically high 15-37 [facility] Comment on above: Performed By: #### Andi GUY UMICRO #### [facility] [address] [place] [address] Dr. Les Bryan Bilirubin [Mass/Vol] 0.3 mg/dL Normal 0.2-1.0 [facility] Comment on above: Performed By: #### Andi GUY UMDARCIERO #### [facility] [address] [place] [address] Dr. Les Bryan Calcium [Mass/Vol] 9.0 mg/dL Normal 8.5-10.1 [facility] Comment on above: Performed By: #### BARBER STEVENSONRO #### [facility] [address] [place] [address] Dr. Les Bryan Chloride [Moles/Vol] 104 mmol/L Normal 98-107 [facility] Comment on above: Performed By: #### BARBER STEVENSONRO #### [facility] [address] [place] [address] Dr. Les Bryan CO2 [Moles/Vol] 25.0 mmol/L Normal 21.0-32.0 [facility] Comment on above: Performed By: #### BARBER STEVENSONRO #### [facility] [address] [place] [address] Dr. Les Bryan Creatinine [Mass/Vol] 0.70 mg/dL Normal 0.55-1.02 [facility] Comment on above: Performed By: #### BARBER STEVENSONRO #### [facility] [address] [place] [address] Dr. Les Bryan EGFR-AF JAMAICAN 111 mL/min/1.73m2 Normal >=60 [facility] Comment on above: Performed By: #### BARBER STEVENSONRO #### [facility] [address] [place] [address] Dr. Les Bryan EGFR-NON AF JAMAICAN 92 mL/min/1.73m2 Normal >=60 [facility] Comment on above: Performed By: #### BARBER STEVENSONRO #### [facility] [address] [place] [address] Dr. Les Bryan Globulin (S) [Mass/Vol] 4.3 g/dL Normal [facility] Comment on above: Performed By: #### BARBER STEVENSONRO #### [facility] [address] [place] [address] Dr. Les Bryan Glucose [Mass/Vol] 104 mg/dL Normal 74-106 [facility] Comment on above: Performed By: #### E RUR, UMICRO #### [facility] [address] [place] [address] Dr. Les Bryan Potassium [Moles/Vol] 4.3 mmol/L Normal 3.5-5.1 [facility] Comment on above: Performed By: #### Andi GUY UMICRO #### [facility] [address] [place] [address] Dr. Les Bryan Protein [Mass/Vol] 8.2 g/dL Normal 6.4-8.2 [facility] Comment on above: Performed By: #### Andi GUY UMICRO #### [facility] [address] [place] [address] Dr. Les Bryan Sodium [Moles/Vol] 138 mmol/L Normal 136-145 [facility] Comment on above: Performed By: #### Andi GUY UMICRO #### [facility] [address] [place] [address] Dr. Les Bryan Urea nitrogen [Mass/Vol] 10.0 mg/dL Normal 7.0-18.0 [facility] Comment on above: Performed By: #### SABINE STEVENSONICRO #### [facility] [address] [place] [address] Dr. Les Bryan Urea nitrogen/Creatinine [Mass ratio] 14.3 mg/mg Normal [facility] Comment on above: Performed By: #### SABINE STEVENSONICRO #### [facility] [address] [place] [address] Dr. Les Bryan TSHon 04-17-2022 TSH 4.067 uIU/mL Critically high 0.358-3.740 [facility] Comment on above: Performed By: #### T SH, DBIL, BNP, FT3, T7, LIPID, CMP #### [facility] [address] [place] [address] Dr. Les Bryan INSULINon 04-06-2022 Insulin 34.6 uIU/mL Critically high 2.6-24.9 [facility] Comment on above: Performed By: #### Andi GUY UMICRO #### [facility] [address] [place] [address] Dr. Les Bryan Physician Referralon 022 Physician Referral [id number] Normal [facility] T4 LABCORPon 04-06-2022 T4 [Mass/Vol] 6.7 ug/dL Normal 4.5-12.0 [facility] Comment on above: Performed By: #### 4 [id number] #### [facility] [address] [place] [address] Dr. Les Bryan BNPon 04-05-2022 Natriuretic peptide B (Bld) [Mass/Vol] 18.0 pg/mL Normal <=450.0 [facility] Comment on above: Performed By: #### Andi GUY [facility] #### [facility] [address] [place] [address] Dr. Les Bryan CBC AUTO DIFFon 04-05-2022 BASO # 0.1 103/ul Normal 0.0-0.1 [facility] Comment on above: Performed By: #### 4 [id number] #### [facility] [address] [place] [address] Dr. Les Bryan Basophils/100 WBC (Bld) 0.6 % Normal 0.2-2.0 [facility] Comment on above: Performed By: #### 4 [id number] #### [facility] [address] [place] [address] Dr. Les Bryan EO # 0.2 103/ul Normal 0.0-0.7 [facility] Comment on above: Performed By: #### 4 [id number] #### [facility] [address] [place] [address] Dr. Les Bryan Eosinophils/100 WBC (Bld) 1.9 % Normal 0.9-7.0 [facility] Comment on above: Performed By: #### 4 [id number] #### [facility] [address] [place] [address] Dr. Les Bryan Erythrocyte distribution width (RBC) [Ratio] 13.3 % Normal 11.0-15.0 [facility] Comment on above: Performed By: #### 4 [id number] #### [facility] [address] [place] [address] Dr. Les Bryan Hematocrit (Bld) [Volume fraction] 39.1 % Normal 36.0-48.0 [facility] Comment on above: Performed By: #### 4 [id number] #### [facility] [address] [place] [address] Dr. Les Bryan Hemoglobin (Bld) [Mass/Vol] 13.2 g/dL Normal 12.0-16.0 [facility] Comment on above: Performed By: #### 4 [id number] #### [facility] [address] [place] [address] Dr. Les Bryan IG # 0.08 10e3/ul Critically high 0.00-0.03 [facility] Comment on above: Performed By: #### 4 [id number] #### [facility] [address] [place] [address] Dr. Les Bryan IG % 0.8 % Critically high 0.0-0.5 [facility] Comment on above: Performed By: #### 4 [id number] #### [facility] [address] [place] [address] Dr. Les Bryan LYMPH # 3.0 103/ul Normal 1.2-3.8 [facility] Comment on above: Performed By: #### 4 [id number] #### [facility] [address] [place] [address] Dr. Les Bryan Lymphocytes/100 WBC (Bld) 31.4 % Normal 20.5-60.0 [facility] Comment on above: Performed By: #### 4 [id number] #### [facility] [address] [place] [address] Dr. Les Bryan MANUAL DIFF REQ NO Normal [facility] Comment on above: Performed By: #### 4 [id number] #### [facility] [address] [place] [address] Dr. Les Bryan MCH (RBC) [Entitic mass] 30.1 pg Normal 26.7-34.0 [facility] Comment on above: Performed By: #### 4 [id number] #### [facility] [address] [place] [address] Dr. Les Bryan MCHC (RBC) [Mass/Vol] 33.8 g/dL Normal 29.9-35.2 [facility] Comment on above: Performed By: #### 4 [id number] #### [facility] [address] [place] [address] Dr. Les Bryan MCV (RBC) [Entitic vol] 89.1 fL Normal 81.0-99.0 [facility] Comment on above: Performed By: #### 4 [id number] #### [facility] [address] [place] [address] Dr. Les Bryan MONO # 0.6 103/ul Normal 0.3-0.8 [facility] Comment on above: Performed By: #### 4 [id number] #### [facility] [address] [place] [address] Dr. Les Bryan Monocytes/100 WBC (Bld) 6.1 % Normal 1.7-12.0 [facility] Comment on above: Performed By: #### 4 [id number] #### [facility] [address] [place] [address] Dr. Les Bryan NEUT # 5.6 103/ul Normal 1.4-6.5 [facility] Comment on above: Performed By: #### 4 [id number] #### [facility] [address] [place] [address] Dr. Les Bryan Neutrophils/100 WBC (Bld) 59.2 % Normal 43.0-75.0 [facility] Comment on above: Performed By: #### 4 [id number] #### [facility] [address] [place] [address] Dr. Les Bryan Platelet mean volume (Bld) [Entitic vol] 9.0 fL Critically low 9.5-13.5 [facility] Comment on above: Performed By: #### 4 [id number] #### [facility] [address] [place] [address] Dr. Les Bryan PLT 286 103/ul Normal 150-450 [facility] Comment on above: Performed By: #### 4 [id number] #### [facility] [address] [place] [address] Dr. Les Bryan RBC 4.39 106/ul Normal 4.20-5.40 [facility] Comment on above: Performed By: #### 4 [id number] #### [facility] [address] [place] [address] Dr. Les Bryan WBC 9.5 103/ul Normal 4.0-11.0 [facility] Comment on above: Performed By: #### 4 [id number] #### [facility] [address] [place] [address] Dr. Les Bryan FREE T3on 04-05-2022 FREE T3 2.73 pg/mlL Normal 2.18-3.98 [facility] Comment on above: Performed By: #### RICARDO STEVENSON #### [facility] [address] [place] [address] Dr. Les Bryan FREE THYROXINE INDEX T7on FTI 2.08 Normal 1.30-4.50 [facility] Comment on above: Performed By: #### RICARDO STEVENSON #### [facility] [address] [place] [address] Dr. Les Bryan T3U 31.0 % Normal 30.0-39.0 [facility] Comment on above: Performed By: #### RICARDO STEVENSON #### [facility] [address] [place] [address] Dr. Les Bryan T4 [Mass/Vol] 6.70 ug/dL Normal 4.80-13.90 [facility] Comment on above: Result Comment: T4 t esting performed by [facility] Performed By: #### RICARDO STEVENSON #### [facility] [address] [place] [address] Dr. Les Bryan GLYCOHEMOGLOBIN A1Con 2021 ADA RECOMMENDATION SEE BELOW Normal [facility] Comment on above: Result Comment: ADA RECOMMENDED LIMIT 4.0 - 6.0 ADA THERAPEUTIC TARGET < 7.0 ACTION SUGGESTED > 7.0 Performed By: #### 4 [id number] #### [facility] [address] [place] [address] Dr. Les Bryan Glucose [Mass/Vol] 120 mg/dL Normal [facility] Comment on above: Performed By: #### 4 [id number] #### [facility] [address] [place] [address] Dr. Les Bryan HbA1c (Bld) [Mass fraction] 5.8 % Normal 4.5-6.2 [facility] Comment on above: Performed By: #### 4 [id number] #### [facility] [address] [place] [address] Dr. Les Bryan IRONon 04-05-2022 Iron [Mass/Vol] 105.0 ug/dL Normal 50.0-170.0 [facility] Comment on above: Performed By: #### RICARDO STEVENSON #### [facility] [address] [place] [address] Dr. Les Bryan LIPID PROFILEon 04-05-2022 CHOL-HDL RATIO NORM SEE BELOW Normal [facility] Comment on above: Result Comment: 3.3 - 4.4 LOW RISK 4.4 - 7.1 AVERAGE RISK 7.1 - 11.0 MODERATE RISK >11.0 HIGH RISK Performed By: #### RICARDO STEVENSON #### [facility] [address] [place] [address] Dr. Les Bryan Cholesterol [Mass/Vol] 217 mg/dL Critically high <=200 [facility] Comment on above: Performed By: #### RICARDO STEVENSON #### [facility] [address] [place] [address] Dr. Les Bryan Cholesterol in HDL [Mass/Vol] 49 mg/dL Normal 40-60 [facility] Comment on above: Performed By: #### RICARDO STEVENSON #### [facility] [address] [place] [address] Dr. Les Bryan Cholesterol in LDL [Mass/Vol] 128.2 mg/dL Normal [facility] Comment on above: Performed By: #### Andi GUY UMICRO #### [facility] [address] [place] [address] Dr. Les Bryan Cholesterol.total/Ch olesterol in HDL [Mass ratio] 4.4 {ratio} Normal [facility] Comment on above: Performed By: #### Andi GUY UMICRO #### [facility] [address] [place] [address] Dr. Les Bryan HDL NORMAL > or = 60 mg/dl - LOW CARDIOVASCULAR RISK <40 mg/dl - HIGH CARDIOVASCULAR RISK Normal [facility] Comment on above: Performed By: #### Andi GUY UMICRO #### [facility] [address] [place] [address] Dr. Les Bryan LDL CALC NORMAL SEE BELOW Normal [facility] Comment on above: Result Comment: <100 mg/dl OPTIMAL 100 - 129 mg/dl NEAR OR ABOVE OPTIMAL 130 - 159 mg/dl BORDERLINE HIGH 160 - 189 mg/dl HIGH >190 mg/dl VERY HIGH Performed By: #### Andi GUY UMICRO #### [facility] [address] [place] [address] Dr. Les Bryan Triglyceride [Mass/Vol] 199 mg/dL Critically high <=150 [facility] Comment on above: Performed By: #### Andi GUY UMICRO #### [facility] [address] [place] [address] Dr. Les Bryan VLDL CALC 39.8 mg/dL Normal [facility] Comment on above: Performed By: #### Andi GUY UMICRO #### [facility] [address] [place] [address] Dr. Les Bryan PROF 14(COMP METB)on 022 Albumin [Mass/Vol] 3.8 g/dL Normal 3.4-5.0 [facility] Comment on above: Performed By: #### Andi GUY UMICRO #### [facility] [address] [place] [address] Dr. Les Bryan Albumin/Globulin [Mass ratio] 0.9 {ratio} Normal [facility] Comment on above: Performed By: #### RICARDO STEVENSON #### [facility] [address] [place] [address] Dr. Les Bryan ALP [Catalytic activity/Vol] 122 U/L Critically high 46-116 [facility] Comment on above: Performed By: #### RICARDO STEVENSON #### [facility] [address] [place] [address] Dr. Les Bryan ALT [Catalytic activity/Vol] 90 U/L Critically high 14-59 [facility] Comment on above: Performed By: #### RICARDO STEVENSON #### [facility] [address] [place] [address] Dr. Les Bryan Anion gap [Moles/Vol] 13.5 mmol/L Normal [facility] Comment on above: Performed By: #### RICARDO STEVENSON #### [facility] [address] [place] [address] Dr. Les Bryan AST [Catalytic activity/Vol] 63 U/L Critically high 15-37 [facility] Comment on above: Performed By: #### RICARDO STEVENSON #### [facility] [address] [place] [address] Dr. Les Bryan Bilirubin [Mass/Vol] 0.4 mg/dL Normal 0.2-1.0 [facility] Comment on above: Performed By: #### BARBER STEVENSONRO #### [facility] [address] [place] [address] Dr. Les Bryan Calcium [Mass/Vol] 9.3 mg/dL Normal 8.5-10.1 [facility] Comment on above: Performed By: #### RICARDO STEVENSON #### [facility] [address] [place] [address] Dr. Les Bryan Chloride [Moles/Vol] 103 mmol/L Normal 98-107 [facility] Comment on above: Performed By: #### RICARDO STEVENSON #### [facility] [address] [address] [address] Les Bryan CO2 [Moles/Vol] 24.6 mmol/L Normal 21.0-32.0 [facility] Comment on above: Performed By: #### RICARDO STEVENSON #### [facility] [address] [address] [address] Les Bryan Creatinine [Mass/Vol] 0.70 mg/dL Normal 0.55-1.02 [facility] Comment on above: Performed By: #### BARBER STEVENSONRO #### [facility] [address] [address] [address] Les Bryan EGFR-AF JAMAICAN >60 Normal >=60 [facility] Comment on above: Performed By: #### RICARDO STEVENSON #### [facility] [address] [address] [address] Les Bryan EGFR-NON AF JAMAICAN >60 Normal >=60 [facility] Comment on above: Performed By: #### RICARDO STEVENSON #### [facility] [address] [address] [address] Les Bryan Globulin (S) [Mass/Vol] 4.1 g/dL Normal [facility] Comment on above: Performed By: #### RICARDO STEVENSON #### [facility] [address] [address] [address] Les Bryan Glucose [Mass/Vol] 110 mg/dL Critically high 74-106 [facility] Comment on above: Performed By: #### BARBER STEVENSONRO #### [facility] [address] [address] [address] Les Bryan Potassium [Moles/Vol] 4.1 mmol/L Normal 3.5-5.1 [facility] Comment on above: Performed By: #### BARBER STEVENSONRO #### [facility] [address] [address] [address] Les Bryan Protein [Mass/Vol] 7.9 g/dL Normal 6.4-8.2 [facility] Comment on above: Performed By: #### E RUR, UMICRO #### [facility] [address] [place] [address] Dr. Les Bryan Sodium [Moles/Vol] 137 mmol/L Normal 136-145 [facility] Comment on above: Performed By: #### Andi GUY UMICRO #### [facility] [address] [place] [address] Dr. Les Bryan Urea nitrogen [Mass/Vol] 9.0 mg/dL Normal 7.0-18.0 [facility] Comment on above: Performed By: #### Andi GUY UMICRO #### [facility] [address] [place] [address] Dr. Les Bryan Urea nitrogen/Creatinine [Mass ratio] 12.9 mg/mg Normal [facility] Comment on above: Performed By: #### Andi GUY UMICRO #### [facility] [address] [place] [address] Dr. Les Bryan TSHon 04-05-2022 TSH 3.572 uIU/mL Normal 0.358-3.740 [facility] Comment on above: Performed By: #### Andi GUY UMDARCIERO #### [facility] [address] [place] [address] Dr. Les Bryan TSH RANGE SEE BELOW Normal [facility] Comment on above: Result Comment: <0.3 4 UIU/ml HYPERTHYROID 0.34-5.60 UIU/ml EUTHYROID >5.60 UIU/ml HYPOTHYROID Performed By: #### Andi GUY UMICRO #### [facility] [address] [place] [address] Dr. Les Bryan XR KUB 1 VIEWon [...] AMANDA CASSIDY Date: 2022-02-27 15:05 Normal [facility] AMYLASEon 02-25-2022 Amylase [Catalytic activity/Vol] 34 U/L Normal 25-115 [facility] Comment on above: Performed By: #### 4 [id number] #### [facility] [address] [place] [address] Dr. Les Bryan CBC AUTO DIFFon 02-25-2022 BASO # 0.0 103/ul Normal 0.0-0.1 [facility] Comment on above: Performed By: #### C BC #### [facility] [address] [place] [address] Dr. Les Bryan Basophils/100 WBC (Bld) 0.4 % Normal 0.2-2.0 [facility] Comment on above: Performed By: #### C BC #### [facility] [address] [place] [address] Dr. Les Bryan EO # 0.3 103/ul Normal 0.0-0.7 [facility] Comment on above: Performed By: #### C BC #### [facility] [address] [place] [address] Dr. Les Bryan Eosinophils/100 WBC (Bld) 3.6 % Normal 0.9-7.0 [facility] Comment on above: Performed By: #### C BC #### [facility] [address] [place] [address] Dr. Les Bryan Erythrocyte distribution width (RBC) [Ratio] 13.1 % Normal 11.0-15.0 [facility] Comment on above: Performed By: #### C BC #### [facility] [address] [place] [address] Dr. Les Bryan Hematocrit (Bld) [Volume fraction] 40.6 % Normal 36.0-48.0 [facility] Comment on above: Performed By: #### C BC #### [facility] [address] [place] [address] Dr. Les Bryan Hemoglobin (Bld) [Mass/Vol] 13.3 g/dL Normal 12.0-16.0 [facility] Comment on above: Performed By: #### C BC #### [facility] [address] [place] [address] Dr. Les Bryan IG # 0.06 10e3/ul Critically high 0.00-0.03 [facility] Comment on above: Performed By: #### C BC #### [facility] [address] [place] [address] Dr. Les Bryan IG % 0.6 % Critically high 0.0-0.5 [facility] Comment on above: Performed By: #### C BC #### [facility] [address] [place] [address] Dr. Les Bryan LYMPH # 3.6 103/ul Normal 1.2-3.8 [facility] Comment on above: Performed By: #### C BC #### [facility] [address] [place] [address] Dr. Les Bryan Lymphocytes/100 WBC (Bld) 38.2 % Normal 20.5-60.0 [facility] Comment on above: Performed By: #### C BC #### [facility] [address] [place] [address] Dr. Les Bryan MANUAL DIFF REQ NO Normal [facility] Comment on above: Performed By: #### C BC #### [facility] [address] [place] [address] Dr. Les Bryan MCH (RBC) [Entitic mass] 29.7 pg Normal 26.7-34.0 [facility] Comment on above: Performed By: #### C BC #### [facility] [address] [place] [address] Dr. Les Bryan MCHC (RBC) [Mass/Vol] 32.8 g/dL Normal 29.9-35.2 [facility] Comment on above: Performed By: #### C BC #### [facility] [address] [place] [address] Dr. Les Bryan MCV (RBC) [Entitic vol] 90.6 fL Normal 81.0-99.0 [facility] Comment on above: Performed By: #### C BC #### [facility] [address] [place] [address] Dr. Les Bryan MONO # 0.5 103/ul Normal 0.3-0.8 [facility] Comment on above: Performed By: #### C BC #### [facility] [address] [place] [address] Dr. Les Bryan Monocytes/100 WBC (Bld) 5.4 % Normal 1.7-12.0 [facility] Comment on above: Performed By: #### C BC #### [facility] [address] [place] [address] Dr. Les Bryan NEUT # 4.9 103/ul Normal 1.4-6.5 [facility] Comment on above: Performed By: #### C BC #### [facility] [address] [place] [address] Dr. Les Bryan Neutrophils/100 WBC (Bld) 51.8 % Normal 43.0-75.0 [facility] Comment on above: Performed By: #### C BC #### [facility] [address] [place] [address] Dr. Les Bryan Platelet mean volume (Bld) [Entitic vol] 9.2 fL Critically low 9.5-13.5 [facility] Comment on above: Performed By: #### C BC #### [facility] [address] [place] [address] Dr. Les Bryan PLT 335 103/ul Normal 150-450 [facility] Comment on above: Performed By: #### C BC #### [facility] [address] [place] [address] Dr. Les Bryan RBC 4.48 106/ul Normal 4.20-5.40 [facility] Comment on above: Performed By: #### C BC #### [facility] [address] [place] [address] Dr. Les Bryan WBC 9.4 103/ul Normal 4.0-11.0 [facility] Comment on above: Performed By: #### C #### [facility] [address] [address] [address] ABD/PELVIS WO CONon [...] IWONA BRITT Date: 2022-02-25 19:05 Normal [facility] ER URINE PROFILEon Bilirubin Ql (U) Negative Normal NEGATIVE [facility] Comment on above: Performed By: #### Andi GUY UMICRO #### [facility] [address] [place] [address] Dr. Les Bryan Clarity (U) CLEAR Normal CLEAR [facility] Comment on above: Performed By: #### Andi GUY UMICRO #### [facility] [address] [place] [address] Dr. Les Bryan Color (U) YELLOW Normal YELLOW [facility] Comment on above: Performed By: #### Andi GUY UMICRO #### [facility] [address] [place] [address] Dr. Les MOY A micrscopic examination will be performed if indicated. Normal [facility] Comment on above: Performed By: #### Andi GUY UMICRO #### [facility] [address] [place] [address] Dr. Les Bryan Glucose Ql (U) Negative Normal NEGATIVE [facility] Comment on above: Performed By: #### Andi GUY UMICRO #### [facility] [address] [place] [address] Dr. Les Bryan Hemoglobin Ql (U) LARGE Abnormal NEGATIVE [facility] Comment on above: Performed By: #### Andi GUY UMICRO #### [facility] [address] [place] [address] Dr. Les Bryan Ketones Ql (U) Negative Normal NEGATIVE The [facility] Comment on above: Performed By: #### Andi GUY UMICRO #### [facility] [address] [place] [address] Dr. Les Bryan LEUKOCYTES TRACE Abnormal NEGATIVE [facility] Comment on above: Performed By: #### Andi GUY UMICRO #### [facility] [address] [place] [address] Dr. Les Bryan Nitrite Ql (U) Negative Normal NEGATIVE [facility] Comment on above: Performed By: #### Andi GUY UMICRO #### [facility] [address] [place] [address] Dr. Les Bryan pH (U) 7.0 [pH] Normal 5-9 [facility] Comment on above: Performed By: #### RICARDO STEVENSON #### [facility] [address] [place] [address] Dr. Les Bryan Protein (U) [Mass/Vol] 30 mg/dL Abnormal NEGATIVE/ TRACE [facility] Comment on above: Performed By: #### RICARDO STEVENSON #### [facility] [address] [place] [address] Dr. Les Bryan SPEC GRAVITY 1.025 Normal 1.005-<=1.025 [facility] Comment on above: Performed By: #### RICARDO STEVENSON #### [facility] [address] [place] [address] Dr. Les Bryan UR MICRO IND INDICATED Normal [facility] Comment on above: Performed By: #### RICARDO STEVENSON #### [facility] [address] [place] [address] Dr. Les Bryan Urobilinogen Qn (U) 0.2 {Racquel'U}/dL Normal 0.2 - 1. 0 [facility] Comment on above: Performed By: #### RICARDO STEVENSON #### [facility] [address] [place] [address] Dr. Les Bryan LIPASEon 02-25-2022 Lipase [Catalytic activity/Vol] 82.0 U/L Normal 73.0-393.0 [facility] Comment on above: Performed By: #### [id number] #### [facility] [address] [place] [address] Dr. Les Bryan PROF 14(COMP METB)on 022 Albumin [Mass/Vol] 3.7 g/dL Normal 3.4-5.0 [facility] Comment on above: Performed By: #### [id number] #### [facility] [address] [place] [address] Dr. Les Bryan Albumin/Globulin [Mass ratio] 0.9 {ratio} Normal [facility] Comment on above: Performed By: #### 4 [id number] #### [facility] [address] [address] [address] Les Bryan ALP [Catalytic activity/Vol] 129 U/L Critically high 46-116 [facility] Comment on above: Performed By: #### 4 [id number] #### [facility] [address] [address] [address] Les Bryan ALT [Catalytic activity/Vol] 86 U/L Critically high 14-59 [facility] Comment on above: Performed By: #### 4 [id number] #### [facility] [address] [address] [address] Les Bryan Anion gap [Moles/Vol] 15.3 mmol/L Normal [facility] Comment on above: Performed By: #### 4 [id number] #### [facility] [address] [place] [address] Dr. Les Bryan AST [Catalytic activity/Vol] 51 U/L Critically high 15-37 [facility] Comment on above: Performed By: #### 4 [id number] #### [facility] [address] [address] [address] Les Bryan Bilirubin [Mass/Vol] 0.2 mg/dL Normal 0.2-1.0 [facility] Comment on above: Performed By: #### 4 [id number] #### [facility] [address] [address] [address] Les Bryan Calcium [Mass/Vol] 8.4 mg/dL Critically low 8.5-10.1 [facility] Comment on above: Performed By: #### 4 [id number] #### [facility] [address] [address] [address] Les Bryan Chloride [Moles/Vol] 103 mmol/L Normal 98-107 [facility] Comment on above: Performed By: #### 4 [id number] #### [facility] [address] [address] [address] Les Bryan CO2 [Moles/Vol] 26.2 mmol/L Normal 21.0-32.0 [facility] Comment on above: Performed By: #### 4 [id number] #### [facility] [address] [address] [address] Les Bryan Creatinine [Mass/Vol] 0.72 mg/dL Normal 0.55-1.02 [facility] Comment on above: Performed By: #### 4 [id number] #### [facility] [address] [address] [address] Les Bryan EGFR-AF JAMAICAN >60 Normal >=60 [facility] Comment on above: Performed By: #### 4 [id number] #### [facility] [address] [address] [address] Les Bryan EGFR-NON AF JAMAICAN >60 Normal >=60 [facility] Comment on above: Performed By: #### 4 [id number] #### [facility] [address] [place] [address] Dr. Les Bryan Globulin (S) [Mass/Vol] 4.2 g/dL Normal [facility] Comment on above: Performed By: #### 4 [id number] #### [facility] [address] [address] [address] Les Bryan Glucose [Mass/Vol] 121 mg/dL Critically high 74-106 [facility] Comment on above: Performed By: #### 4 [id number] #### [facility] [address] [address] [address] Les Bryan Potassium [Moles/Vol] 3.5 mmol/L Normal 3.5-5.1 [facility] Comment on above: Performed By: #### 4 [id number] #### [facility] [address] [address] [address] Les Bryan Protein [Mass/Vol] 7.9 g/dL Normal 6.1-8.2 [facility] Comment on above: Performed By: #### 4 [id number] #### [facility] [address] [address] [address] Les Bryan Sodium [Moles/Vol] 141 mmol/L Normal 136-145 [facility] Comment on above: Performed By: #### 4 [id number] #### [facility] [address] [place] [address] Dr. Les Bryan Urea nitrogen [Mass/Vol] 14.0 mg/dL Normal 7.0-18.0 [facility] Comment on above: Performed By: #### 4 [id number] #### [facility] [address] [place] [address] Dr. Les Bryan Urea nitrogen/Creatinine [Mass ratio] 19.4 mg/mg Normal [facility] Comment on above: Performed By: #### 4 [id number] #### [facility] [address] [place] [address] Dr. Les Bryan URINE MICROSCOPIC ONLYon BACTERIA TRACE Abnormal NONE SEEN [facility] Comment on above: Performed By: #### Andi GUY UMICRO #### [facility] [address] [place] [address] Dr. Les Bryan Bacteria identified Cx Nom (U) NOT INDICATED Normal [facility] Comment on above: Performed By: #### Andi GUY UMICRO #### [facility] [address] [place] [address] Dr. Les Bryan CAST NONE SEEN Normal NONE SEEN [facility] Comment on above: Performed By: #### Andi GUY UMICRO #### [facility] [address] [place] [address] Dr. Les Bryan Crystals LM Nom (Urine sed) NONE SEEN Normal NONE SEEN [facility] Comment on above: Performed By: #### Andi GUY UMICRO #### [facility] [address] [place] [address] Dr. Les Bryan Epithelial cells LM Ql (Urine sed) MODERATE Abnormal NONE SEEN /RARE [facility] Comment on above: Performed By: #### Andi GUY UMICRO #### [facility] [address] [place] [address] Dr. Les Bryan MUCOUS NONE SEEN Normal NONE SEEN [facility] Comment on above: Performed By: #### Andi GUY UMICRO #### [facility] [address] [place] [address] Dr. Les Bryan RBC 20-50 Abnormal 0-2 [facility] Comment on above: Result Comment: cren ated RBCs Performed By: #### RICARDO STVEENSON #### [facility] [address] [place], [place] [address] Dr. Les Bryan WBC 2-5 Abnormal NONE SEEN [facility] Comment on above: Performed By: #### RICARDO STEVENSON #### [facility] [address] [place], [place] [address] Dr. Les Bryan Vital Signs Date Time Vital Sign Value Performing Clinician Facility 09-13-2023 10:30-0500 Body height 162.56 cm Shae Love Other [facility] Other 09-13-2023 10:30-0500 Body mass index (BMI) [Ratio] 23.14 kg/m2 Shae Love Other [facility] Other 09-13-2023 10:30-0500 Body temperature 98.4 [degF] Shae Love Other [facility] Other 09-13-2023 10:30-0500 Body weight 61.15 kg Shae Silvestreler Other [facility] Other 09-13-2023 10:30-0500 Respiratory rate 18 /min Shae Love Other [facility] Other 09-13-2023 10:30-0500 SaO2% (BldA) [Mass fraction] 99 % Shae Love Other [facility] Other 04-21-2022 09:07-0400 Blood Pressure Location Jl FREDERICK [facility] [place] 04-21-2022 09:07-0400 Diastolic blood pressure 86 mm[Hg] Jl FREDERICK [facility] [place] 04-21-2022 09:07-0400 Heart rate 92 /min Jl YULIANAL [facility] [place] 04-21-2022 09:07-0400 Respiratory rate 16 /min Jl YOLY [facility] 04-21-2022 09:07-0400 Systolic blood pressure 127 mm[Hg] Jl FREDERICK [facility] Encounters Encounter Date Encounter Type Care Provider Facility Start: 09-13-2023 Office outpatient ne w [address] 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 Shae Love Work Phone: [facility] Work Phone: Start: 10-09-2022 End: 10-10-[address] ANGELICA DE Facility:[facility] Start: 09-04-2022 End: 09-04-[address] ANGELICA DE Facility:[facility] Start: 09-01-2022 End: 09-02-[address] ANGELICA DE Facility:[facility] Start: 05-30-2022 End: 05-30-[address] ANGELICA DE Facility:[facility] Start: 05-12-2022 End: 05-12-2022 Patient encounter procedure Jl FREDERICK [facility] [place] Start: 05-03-2022 End: 05-03-2022 Patient encounter procedure Jl FREDERICK General Surgery [place]/Angelique [place]do[facility] Start: 04-21-2022 End: 04-21-2022 Patient encounter procedure Jl FREDERICK [facility] [place] Start: 04-20-[address] ANGELICA DE Facility :[facility] Start: 04-17-2022 End: 04-18-[address] ANGELICA DE Facility:[facility] Start: 04-05-2022 End: 04-06-[address] ANGELICA DE Facility:[facility] Start: 02-27-2022 End: 02-28-[address] ANGELICA ED Facility:[facility] Start: 02-25-2022 End: 02-25-2022 ambulatory EMILY MCDERMOTT Facility:[facility] Procedures Date Procedure Procedure Detail Performing Clinician Start: 09-13-2023 Radiologic examinati on of knee CERTIFIED VETERINARY TECHNICIAN Shae Love Work Phone: Start: 05-03-2022 Excision of dermatofibroma Jl BRIDGESHerbert Comment on above: left ankle Start: 07-08-2015 laparoscopic cholecy stectomy with intraoperative cholangiogram Jl FREDERICK Abdominal hysterectomy Sebastian munguia YOLY Bilateral complete salpingectomy Jl FREDERICK Diagnostic laparoscopy Sebastian FREDERICK Loop electrosurgical excision procedure Jl FREDERICK Payers Date Payer Category Payer Unknown [id number] 2.16.84 [id number] 1980 Unknown [id number] 2.16.84 [id number] 1979 Unknown [id number] 2.16.84 [id number] 1979 Unknown [id number] 2.16.84 [id number] 1979 Unknown [id number] 2.16.84 [id number] 1979 Unknown [id number] 2.16.84 [id number] 1979 Unknown [id number] 2.16.84 [id number] 1979 Unknown [id number] 2.16.84 [id number] 1979 Unknown [id number] 2.16.84 [id number] 1960 Self-pay 1960 Unknown [id number] Unknown [id number] 2.16.8 [id number] Social History Date Type Detail Facility Start: 04-21-2022 Tobacco smoking status Ex-smoker (fi nding) [facility] [email or web address] Tobacco smoking status Never [facility] [email or web address] Sex Assigned At Female [facility] [email or web address] Start: 1980 Sex Assigned At Female [facility] Functional Status Date Assessment Result Facility 04-21-2022 Functional Status N/A [facility] [email or web address] Evaluation note 09-13-2023 Note Date & Type [...] understanding and is agreeable to treatment plan [facility] Other Clinical Note 04-21-2022 Note Date & [...] Mother. Primary malignant neoplasm of bladder: Father. [facility] Comment on above: Result Comment: Elec tronically Signed By: Jl FREDERICK MD\.br\Date and Time Signed: 04/21/22 09:48 EDT Evaluation + Plan note Note Date & Type Note Facility Evaluation + Plan note Future Appointments Appointment Date:05/03/2022 03:00:00 PM Scheduled Provider:Jl FREDERICK MD Location:[facility] Appointment Type: Procedure 30 [facility] [place] Evaluation + Plan note Note Date & Type Note Facility Evaluation + Plan note Future Appointments Appointment Date:05/12/2022 03:40:00 PM Scheduled Provider:Jl FREDERICK MD Location:[facility] Appointment Type: Post Op 15 General Surgery [place] Evaluation note Note Date & Type Note Facility Evaluation note No assessment information availa [facility] Work Phone: History general Narrative - Reported Note Date & Type Note Facility History general Narrative - Reported Type Medical History Anxiety disorder Medical History chronic depression Medical History thyriod Surgical History LEAP [facility] Other Hospital course Narrative Note Date & Type Note Facility Hospital course Narrative No data available for this section [facility] [place] [facility] Discharge instructions Note Date & Type Note Facility Hospital Discharge instructions No data available for this section [facility] [place] Progress note Note Date & Type Note Facility Progress note No data available for this section [facility] Summary Purpose Family History No Family History [...] section and content) DATE CREATED AUTHOR 05/16/2022 [facility] DATE CREATED AUTHOR AUTHOR'S ORGANIZ ATION 10/20/2022 [facility] [place] [facility] DATE CREATED AUTHOR AUTHOR'S ORGANIZ ATION 12/07/2023 [facility] REASON FOR VISIT (unrecogniz ed section [...] BE BASED ON THE PRIMARY CLINICAL RECORDS. [email or web address] [facility]. provides no warranty or guarantee of the accuracy or completeness of information in this document.
[2024-04-18 17:32] LABS: Free T3 2.26 pg/mL (2.18-3.98); Thyroid Stimulating Hormone 2.057 uIU/mL (0.358-3.740)
== END 2024-04-18 16:33 | disposition home or self-care (01) ==
LOC: LAB 16:33
PROVIDERS: PCP Family Medicine; Visit Provider Family Medicine
DX: E03.9 Hypothyroidism, unspecified (principal)
CPT/HCPCS: 36415; 84439; 84443; 84481

== ENCOUNTER 2024-04-25 08:00 | Outpatient (OUT) | payer BC, SELFPAY ==
--- NOTE | 2024-04-25 | CT_ITS ---
The [address] [address] Patient Name: LUCIA HERNDON MRN: [id number] date: 1980 Sex: F Assigned Patient Location: CT Current Patient Location: CT Accession/Order Number: [id number] Exam Date: 04/25/2024 08:10 Report Date: 04/25/2024 09:48 At the request of: ANGELICA VERONICA Procedure: CT chest wo con EXAMINATION: CT chest wo con HISTORY: CHEST MASS COMPARISON: All TECHNIQUE: Multi-planar CT images were created with IV contrast. Axial, Coronal, and Sagittal images. Dose reduction techniques were achieved by using automated exposure control and/or adjustment of mA and/or kV according to patient size and/or use of iterative reconstruction technique. FINDINGS: LUNGS: Interval increase in size of a left lower lobe subpleural nodule now measuring 4.5 mm previously 4 x 2 mm. Additional centimeter primarily punctate nodules appear grossly stable PLEURA: No mass, effusion, or pneumothorax. VASCULATURE: No abnormality. UNIQUE: No mass or adenopathy. MEDIASTINUM: No mass or adenopathy. CARDIAC: No enlargement or pericardial effusion Coronary arteries: Absent calcifications AORTA: No aneurysm CHEST WALL: No mass or axillary adenopathy. BONES: No bone lesion or fracture. LIMITED ABDOMEN: No suspicious findings. Limited images of the upper abdomen. OTHER: Negative. CT/CT chest wo con IMPRESSION: Scattered pulmonary nodules the largest 4.5 mm left lower lobe, nonspecific Electronically authenticated by: BELIA HENDRICKS Date: 04/25/2024 09:48
--- NOTE | 2024-04-25 | MM_ITS ---
Patient Name: LUCIA HERNDON MR#: [id number] : 1980 Exam Date: 04/25/2024 Ordering Doctor: DR Napoleon De . RADIOLOGY REPORT PROCEDURE: MM TOMOSYNTHESIS SCREENING BI COMPARISON: MG MAMM SCREEN GUSTAVO W CAD, 07/16/2020. MG MAMM SCREEN 3D GUSTAVO CAD, 09/01/2022. INDICATIONS: SCREENING, ADULT WELLNESS Calculator Name NCI Breast Cancer Risk Assessment Tool 5 Year Breast Cancer Risk 0.70% Lifetime Breast Cancer Risk 8.70% Personal Breast Cancer No Personal Ovarian Cancer No Treatments None Family Cancers Aunt-maternal with breast cancer at age 55; Father with bladder cancer at age ~60. LOCATION: [facility] BREAST COMPOSITION: There are scattered areas of fibroglandular density. FINDINGS: DIAGNOSTIC CATEGORY 2--BENIGN FINDING. NO CHANGE FROM COMPARISON. Scattered benign-appearing nodules are present. Scattered benign-appearing lymph nodes are present. RIGHT BREAST: No significant suspicious finding. LEFT BREAST: No significant suspicious finding. RECOMMENDATIONS: ROUTINE MAMMOGRAM AND CLINICAL EVALUATION IN 12 MONTHS. PLEASE NOTE: A NORMAL MAMMOGRAM DOES NOT EXCLUDE THE POSSIBILITY OF BREAST CANCER. A CLINICALLY SUSPICIOUS PALPABLE LUMP SHOULD BE BIOPSIED. Dictated by: Chico Colbert MD on 04/25/2024 at 11:35 Approved by: Chico Colbert MD on 04/25/2024 at 11:36
--- OUTSIDE RECORDS SUMMARY | 2024-04-25 08:11 | XMS_ITS ---
Patient Summarization (C-CDA 2.1 CCD) Created on: April 25, 2024 JOSEPHINE HERNDON : 1980 Sex: Female Author Organization Sample organization Care Team Providers Care Senior Network Architect Name Role Phone Angelica De Primary Care [...] allergy 3 Eruption of skin (disorder), rash [facility] (4 sources) Sulfamethoxazole / Trimethoprim; Translations: [sulfamethoxazole-tr imethoprim] Drug Allergy Weal (disorder), hives [facility] (2 sources) natural latex rubber Drug allergy (disorder) [facility] (2 sources) Sulfamethoxazole / Trimethoprim Drug Allergy [facility] (1 source) Sulfamethoxazole Drug Allergy 3 [facility] (1 source) Trimethoprim Drug Allergy 3 [facility] Encounters Encounter Date Encounter Type Care Provider Facility Start: 09-13-2023 Office outpatient ne w 20 minutes Shae Love [employer] [facility] Start: 09-13-2023 End: 09-13-2023 ambulatory Shae Love [facility] [employer] Other Start: 09-13-2023 End: 09-13-2023 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: [facility] Work Phone: Start: 10-09-2022 End: 10-10-[address] ANGELICA DE Facility:[facility]1 Start: 09-04-2022 End: 09-04-[address] ANGELICA ED Facility:[facility] Start: 09-01-2022 End: 09-02-[address] ANGELICA DE Facility:[facility] Start: 05-30-2022 End: 05-30-[address] ANGELCIA DE Facility:[facility] Start: 05-12-2022 End: 05-12-2022 Patient encounter procedure Jl FREDERICK General Surgery [place]/Said [place] Start: 05-03-2022 End: 05-03-2022 Patient encounter procedure Jl FREDERICK General Surgery Srinath/Angelique Ordoñez Start: 04-21-2022 End: 04-21-2022 Patient encounter procedure Jl FREDERICK [facility] General Surgery Wilfred Start: 04-20-[address] ANGELICA DE Facility :[facility]1 Start: 04-17-2022 End: 04-18-[address] ANGELICA DE Facility:[facility] Start: 04-05-2022 End: 04-06-[address] ANGELICA DE Facility:[facility] Start: 02-27-2022 End: 02-28-[address] ANGELICA DE Facility:[facility] Start: 02-25-2022 End: 02-25-2022 ambulatory EMILY MCDERMOTT Facility:[facility] Medications Current Medications Medication Drug Class(es) Dates [...] (1 source) l-Thyroxine Levothyroxine So dium Not-Taking Tyrrell-Linyah (1 source) Tyrrell-Linyah Not- Taking Payers Date Payer Category Payer Unknown [id number] .16.84 [id number] 1980 Unknown [id number] .16.84 [id number] 1980 Unknown [id number] .16.84 [id number] 1980 Unknown [id number] .16.84 [id number] 1980 Unknown [id number] .16.84 [id number] 1979 Unknown [id number] 2.16.84 [id number] 1979 Unknown [id number] 2.16.84 [id number] 1980 Unknown [id number] 2.16.84 [id number] 1980 Unknown [id number] 2.16.84 [id number] 1960 Self-pay 1960 Unknown [id number] Unknown [id number] 2.16.8 [id number] Problems Active Problems Problem Classification Problem Date [...] BOTH CERVIX AND UTERUS] Onset: 02-28-2022 Episodic Procedures Date Procedure Procedure Detail Performing Clinician Start: 09-13-2023 Radiologic examinati on of knee 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 Love Work Phone: Start: 05-03-2022 Excision of dermatofibroma Jl FREDERICK Comment on above: left ankle Start: 07-08-2015 laparoscopic cholecy stectomy with intraoperative cholangiogram Jl FREDERICK Abdominal hysterectomy Sebastian FREDERICK Bilateral complete salpingectomy Jl FREDERICK Diagnostic laparoscopy Sebastian FREDERICK Loop electrosurgical excision procedure Jl FREDERICK Results Test Name Value Interpretation Reference Range Facility XR knee LT 4V*on 09-13-2023 XR knee LT 4V* [facility] [place] [address] XRay Report Signed Patient: Josephine Herndon MR#: [id number] : 1980 Acct:[id number] Age/Sex: 43 / F ADM Date: 09/13/23 Loc: XDUCLY Room: Type: [facility] Attending Dr: Shae Love APRN Copies to: [...] Donato Rockwell M.D.09/13/2023 11:19 AM Dictation Location: [place] [address] Transcribed By: [facility] 09/13/23 111 Dictated By: Donato Rockwell II, MD 09/13/231117 Signed By: 09/13/23 1119 [facility] XR knee LT 4V* [facility] Other XR knee LT 4V* [facility] [employer] Other XR knee LT 4V* [address] [place] [address] [employer] Other XR knee LT 4V* [place] [address] No [facility] [employer] Other XR knee LT 4V* XRay Report [employer] Other XR knee LT 4V* Signed [employer] Other XR knee LT 4V* Patient: Josephine Herndon MR#: [id number] [employer] Other XR knee LT 4V* 8 [employer] Other XR knee LT 4V* : 1980 Acct:[id number] [employer] Other XR knee LT 4V* Age/Sex: 43 / F ADM Date: 09/13/23 [employer] Other XR knee LT 4V* Loc: XDUCLY Room: Type: REG CLI [employer] Other XR knee LT 4V* Attending Dr: Shae Love APRN [employer] Other XR knee LT 4V* Copies to: Shae Love APRN [employer] Other XR knee LT 4V* Ordering Provider: Shae Love APRN [employer] Other XR knee LT 4V* Date of Service: 09/13/23 [employer] Other XR knee LT 4V* XR/XR knee LT 4V*: Injury [employer] Other XR knee LT 4V* XR knee LT 4V* 09/13/2023 10:51 AM [employer] Other XR knee LT 4V* SIGNS AND SYMPTOMS: Twisting injury to left knee with pain and swelling medially [employer] Other XR knee LT 4V* PROTOCOL: Frontal, lateral, and oblique radiographs of the left knee [employer] Other XR knee LT 4V* COMPARISON: None [facility] [employer] Other XR knee LT 4V* FINDINGS: [employer] Other XR knee LT 4V* The joint spaces are preserved. There is a moderate joint effusion. There is no evidence of fracture [employer] Other XR knee LT 4V* or dislocation. No significant soft tissue swelling. [employer] Other XR knee LT 4V* XR/XR knee LT 4V* [employer] Other XR knee LT 4V* IMPRESSION: [employer] Other XR knee LT 4V* No fracture. [facility] [employer] [facility] [employer] Other XR knee LT 4V* There is a moderate joint effusion. [employer] Other XR knee LT 4V* Impression dictated by: Donato Rockwell M.D.09/13/2023 11:19 AM [employer] Other XR knee LT 4V* Dictation Location: [place] [address] [employer] Other XR knee LT 4V* Transcribed By: PWS 09/13/23 1119 [employer] Other XR knee LT 4V* Dictated By: Donato Rockwell II, MD 09/13/23 1116 [employer] Other XR knee LT 4V* Signed By: [employer] Other XR knee LT 4V* 09/13/23 [address] CHEST WO CONon 10-10-2022 CT CHEST [...] AMANDA CASSIDY Date: 2022-10-10 10:35 Normal [facility] Covid-19 PCR (CVDTBH)on SARS-CoV-2 (COVID-19) RNA RAYMOND+probe Ql (Unsp spec) Not detected Normal NOT DETECTED [facility] Comment on above: Result Comment: When [...] for this test is supported by the [place] of Health and Human Service's declaration that [...] longer be used). Performed By: #### C [facility] #### [facility] [address] [place] [address] CHEST WO CONon [...] BELIA HENDRICKS Date: 2022-09-01 09:55 Normal [facility] MAMM SCREEN 3D GUSTAVO CADon 09-01-2022 MG MAMM SCREEN 3D GUSTAVO CAD Patient: JOSEPHINE HERNDON Exam Date: 09/01/2022 : 1980 Gender:F Ordering : DR ANGELICA DE . Admission #: [id number] Family : Order #: [id number] CLICK HERE TO VIEW EXAM RADIOLOGY REPORT [...] bladder cancer at age 59. LOCATION: [facility] BREAST COMPOSITION: Scattered areas fibroglandular density. [...] Hendricks MD on 09/01/2022 at 09:32 Normal [facility] PAP ACOG PANEL 2: 21 to 29on 06-02-2022 . . Normal [facility] Comment on above: Result Comment: Perf ormed at: WB Performed By: #### [id number] #### [facility] [address] [place] [address] Dr. Les Bryan Age Gdln ACOG Testing 30-65 Normal [facility] Comment on above: Performed By: #### [id number] #### [facility] [address] [place] [address] Dr. Les Bryan DIAGNOSIS: Comment Normal [facility] Comment on above: Result Comment: NEGA TIVE FOR INTRAEPITHELIAL LESION OR MALIGNANCY. Performed at: WB Performed By: #### [id number] #### [facility] [address] [place] [address] Dr. Les Bryan HPV Aptima Negative Normal Negative [facility] Comment on above: Result Comment: This nucleic acid amplification test detects fourteen high-risk HPV types (16,18,31,33,35,39,45,51,52,56,58,59,66,68) without differentiation. Performed at: =G Performed By: #### [id number] #### [facility] [address] [place] [address] Dr. Les Bryan Methodology: Comment Normal [facility] Comment on above: Result Comment: This liquid based ThinPrep(R) pap test was screened with the use of an image guided system. Performed at: WB Performed By: #### [id number] #### [facility] [address] [place] [address] Dr. Les Bryan Note: Comment Normal [facility] Comment on above: Result Comment: The Pap smear is a screening test designed to aid in the detection of premalignant and malignant conditions of the uterine cervix. It is not a diagnostic procedure and should not be used as the sole means of detecting cervical cancer. Both false-positive and false-negative reports do occur. . Performed at: WB Performed By: #### [id number] #### [facility] [address] [place] [address] Dr. Les Bryan Performed by: Comment Normal [facility] Comment on above: Result Comment: Bella Cuevas, Dry Pan Feeder (ASCP) Performed at: WB Performed By: #### [id number] #### [facility] [address] [place] [address] Dr. Les Bryan Specimen adequacy: Comment Normal [facility] Comment on above: Result Comment: Sati sfactory for evaluation. Endocervical and/or squamous metaplastic cells (endocervical component) are present. Performed at: WB Performed By: #### [id number] #### [facility] [address] [place] [address] [address] Les Bryan General Surgery Office/Clini c [...] Primary malignant neoplasm of bladder: Father. Normal [facility] Comment on above: Result Comment: Elec tronically Signed By: SRINATH AKBAR, Jl R\.br\Date and Time Signed: 05/14/22 18:35 EDT Ambulatory Visit Summaryon 0 05-12-2022 Ambulatory Visit Summary JOSEPHINE HERNDON :1980 Visit Date:05/12/2022 Ambulatory Visit Instructions Your Care Team Attending Physician - SRINATH AKBAR, Jl Nieves Primary Care Physician - [...] longer receiving treatment for. Migraine Psoriasis Alvaro [facility] General Surgery Office/Clini c Noteon [...] Primary malignant neoplasm of bladder: Father. Normal [facility] Comment on above: Result Comment: Elec tronically Signed By: SRINATH AKBAR, Jl Nieves\.br\Date and Time Signed: 05/12/22 16:00 EDT Pathology Noteon 05-08-2022 Pathology Note [id number] #[id number]:[id number] [facility] Ambulatory Visit Summaryon 0 05-03-2022 Ambulatory Visit Summary JOSEPHINE HERNDON :1980 Visit Date:05/03/2022 Ambulatory Visit Instructions Your Care Team Attending Physician - SRINATH AKBAR, Jl Nieves Primary Care Physician - [...] Jl FREDERICK MD Where: General Surgery Nill/Said [facility] Ambulatory Visit Summaryon 0 04-21-2022 Ambulatory Visit [...] Jl FREDERICK MD Where: General Surgery Nill/Said [facility] HEPATITIS PANEL, ACUTEon HBsAg Screen Negative Normal Negative [facility] Comment on above: Performed By: #### H EPACUT #### [facility] [address] [place] [address] [address] Les Bryan HCV AB 0.2 s/co ratio Normal 0.0-0.9 [facility] Comment on above: Performed By: #### H EPACUT #### [facility] [address] [place] [address] Dr. Les Bryan Hep A Ab, IgM Negative Normal Negative [facility] Comment on above: Performed By: #### H EPACUT #### [facility] [address] [place] [address] Dr. Les Bryan Hep B Core Ab, IgM Negative Normal Negative [facility] Comment on above: Performed By: #### H EPACUT #### [facility] [address] [place] [address] [address] Les Bryan Interpretation: Comment Normal [facility] Comment on above: Result Comment: Nega tive Not infected with HCV, unless recent infection is suspected or other evidence exists to indicate HCV infection. Performed By: #### H EPACUT #### [facility] [address] [place] [address] Dr. Les Bryan INSULINon 04-18-2022 Insulin 18.8 uIU/mL Normal 2.6-24.9 [facility] Comment on above: Performed By: #### I NSULIN #### [facility] [address] [place] [address] Dr. Les Bryan BILIRUBIN CONJUGATED (DIRECT )on 04-17-2022 BILI, CONJUGATED 0.1 mg/dL Normal 0.0-0.2 [facility] Comment on above: Performed By: #### RICARDO STEVENSON #### [facility] [address] [place] [address] Dr. Les Bryan BNPon 04-17-2022 Natriuretic peptide B (Bld) [Mass/Vol] 12.0 pg/mL Normal <=450.0 [facility] Comment on above: Performed By: #### BARBER STEVENSONRO #### [facility] [address] [place] [address] Dr. Les Bryan CBC AUTO DIFFon 04-17-2022 BASO # 0.1 103/ul Normal 0.0-0.1 [facility] Comment on above: Performed By: #### C BC #### [facility] [address] [place] [address] Dr. Les Bryan Basophils/100 WBC (Bld) 0.6 % Normal 0.2-2.0 [facility] Comment on above: Performed By: #### C BC #### [facility] [address] [place] [address] Dr. Les Bryan EO # 0.3 103/ul Normal 0.0-0.7 [facility] Comment on above: Performed By: #### C BC #### [facility] [address] [place] [address] Dr. Les Bryan Eosinophils/100 WBC (Bld) 3.0 % Normal 0.9-7.0 [facility] Comment on above: Performed By: #### C BC #### [facility] [address] [place] [address] Dr. Les Bryan Erythrocyte distribution width (RBC) [Ratio] 13.2 % Normal 11.0-15.0 [facility] Comment on above: Performed By: #### C BC #### [facility] [address] [place] [address] Dr. Les Bryan Hematocrit (Bld) [Volume fraction] 40.8 % Normal 36.0-48.0 [facility] Comment on above: Performed By: #### C BC #### [facility] [address] [place] [address] Dr. Les Bryan Hemoglobin (Bld) [Mass/Vol] 13.4 g/dL Normal 12.0-16.0 [facility] Comment on above: Performed By: #### C BC #### [facility] [address] [place] [address] Dr. Les Bryan IG # 0.07 10e3/ul Critically high 0.00-0.03 [facility] Comment on above: Performed By: #### C BC #### [facility] [address] [place] [address] Dr. Les Bryan IG % 0.8 % Critically high 0.0-0.5 [facility] Comment on above: Performed By: #### C BC #### [facility] [address] [place] [address] Dr. Les Bryan LYMPH # 2.8 103/ul Normal 1.2-3.8 [facility] Comment on above: Performed By: #### C BC #### [facility] [address] [place] [address] Dr. Les Bryan Lymphocytes/100 WBC (Bld) 31.7 % Normal 20.5-60.0 [facility] Comment on above: Performed By: #### C BC #### [facility] [address] [place] [address] Dr. Les Bryan MANUAL DIFF REQ NO Normal [facility] Comment on above: Performed By: #### C BC #### [facility] [address] [place] [address] Dr. Les Bryan MCH (RBC) [Entitic mass] 29.5 pg Normal 26.7-34.0 [facility] Comment on above: Performed By: #### C BC #### [facility] [address] [place] [address] Dr. Les Bryan MCHC (RBC) [Mass/Vol] 32.8 g/dL Normal 29.9-35.2 [facility] Comment on above: Performed By: #### C BC #### [facility] [address] [place] [address] Dr. Les Bryan MCV (RBC) [Entitic vol] 89.9 fL Normal 81.0-99.0 [facility] Comment on above: Performed By: #### C BC #### [facility] [address] [place] [address] Dr. Les Bryan MONO # 0.4 103/ul Normal 0.3-0.8 [facility] Comment on above: Performed By: #### C BC #### [facility] [address] [place] [address] Dr. Les Bryan Monocytes/100 WBC (Bld) 4.7 % Normal 1.7-12.0 [facility] Comment on above: Performed By: #### C BC #### [facility] [address] [place] [address] Dr. Les Bryan NEUT # 5.3 103/ul Normal 1.4-6.5 [facility] Comment on above: Performed By: #### C BC #### [facility] [address] [place] [address] [address] Les Bryan Neutrophils/100 WBC (Bld) 59.2 % Normal 43.0-75.0 [facility] Comment on above: Performed By: #### C BC #### [facility] [address] [place] [address] [address] Les Bryan Platelet mean volume (Bld) [Entitic vol] 9.1 fL Critically low 9.5-13.5 [facility] Comment on above: Performed By: #### C BC #### [facility] [address] [place] [address] Dr. Les Bryan PLT 309 103/ul Normal 150-450 [facility] Comment on above: Performed By: #### C BC #### [facility] [address] [place] [address] Dr. Les Bryan RBC 4.54 106/ul Normal 4.20-5.40 [facility] Comment on above: Performed By: #### C BC #### [facility] [address] [place] [address] [address] Les Bryan WBC 8.9 103/ul Normal 4.0-11.0 [facility] Comment on above: Performed By: #### C BC #### [facility] [address] [place] [address] Dr. Les Bryan FREE T3on 04-17-2022 FREE T3 2.02 pg/mlL Critically low 2.18-3.[address] [facility] Comment on above: Performed By: #### Andi GUY DARCIERO #### [facility] [address] [place] [address] [address] Les Bryan FREE THYROXINE INDEX T7on FTI 2.07 Normal 1.30-4.50 [facility] Comment on above: Performed By: #### BARBER STEVENSONRO #### [facility] [address] [place] [address] [address] Les Bryan T3U 30.0 % Normal 30.0-39.0 [facility] Comment on above: Performed By: #### RICARDO STEVENSON #### [facility] [address] [place] [address] Dr. Les Bryan T4 [Mass/Vol] 6.90 ug/dL Normal 4.80-13.90 [facility] Comment on above: Performed By: #### RICARDO STEVENSON #### [facility] [address] [place] [address] [address] Les Bryan GLYCOHEMOGLOBIN A1Con 2021 ADA RECOMMENDATION SEE BELOW Normal [facility] Comment on above: Result Comment: ADA RECOMMENDED LIMIT 4.0 - 6.0 ADA THERAPEUTIC TARGET < 7.0 ACTION SUGGESTED > 7.0 Performed By: #### A 1C #### [facility] [address] [place] [address] Dr. Les Bryan Glucose [Mass/Vol] 120 mg/dL Normal [facility] Comment on above: Performed By: #### A 1C #### [facility] [address] [place] [address] Dr. Les Bryan HbA1c (Bld) [Mass fraction] 5.8 % Normal 4.5-6.2 [facility] Comment on above: Performed By: #### A 1C #### [facility] [address] [place] [address] Dr. Les Bryan IRONon 04-17-2022 Iron [Mass/Vol] 66.0 ug/dL Normal 50.0-170.[address] [facility] Comment on above: Performed By: #### RICARDO STEVENSON #### [facility] [address] [place] [address] Dr. Les Bryan LIPID PROFILEon 04-17-2022 CHOL-HDL RATIO NORM SEE BELOW Normal [facility] Comment on above: Result Comment: 3.3 - 4.4 LOW RISK 4.4 - 7.1 AVERAGE RISK 7.1 - 11.0 MODERATE RISK >11.0 HIGH RISK Performed By: #### RICARDO STEVENSON #### [facility] [address] [place], [place] [id number] Dr. Les Bryan Cholesterol [Mass/Vol] 244 mg/dL Critically high <=200 [facility] Comment on above: Performed By: #### RICARDO STEVENSON #### [facility] [address] [place] [address] Dr. Les Bryan Cholesterol in HDL [Mass/Vol] 55 mg/dL Normal 40-60 [facility] Comment on above: Performed By: #### BARBER STEVENSONRO #### [facility] [address] [place] [address] Dr. Les Bryan Cholesterol in LDL [Mass/Vol] 155.4 mg/dL Normal [facility] Comment on above: Performed By: #### RICARDO STEVENSON #### [facility] [address] [place] [address] Dr. Les Bryan Cholesterol.total/Ch olesterol in HDL [Mass ratio] 4.4 {ratio} Normal [facility] Comment on above: Performed By: #### RICARDO STEVENSON #### [facility] [address] [place] [address] Dr. Les Bryan HDL NORMAL > or = 60 mg/dl - LOW CARDIOVASCULAR RISK <40 mg/dl - HIGH CARDIOVASCULAR RISK Normal [facility] Comment on above: Performed By: #### BARBER STEVENSONRO #### [facility] [address] [place] [address] Dr. Les Bryan LDL CALC NORMAL SEE BELOW Normal [facility] Comment on above: Result Comment: <100 mg/dl OPTIMAL 100 - 129 mg/dl NEAR OR ABOVE OPTIMAL 130 - 159 mg/dl BORDERLINE HIGH 160 - 189 mg/dl HIGH >190 mg/dl VERY HIGH Performed By: #### BARBER STEVENSONRO #### [facility] [address] [place] [address] Dr. Les Bryan Triglyceride [Mass/Vol] 168 mg/dL Critically high <=150 [facility] Comment on above: Performed By: #### BARBER STEVENSONRO #### [facility] [address] [place] [address] Dr. Les Bryan VLDL CALC 33.6 mg/dL Normal [facility] Comment on above: Performed By: #### RICARDO STEVENSON #### [facility] [address] [place] [address] Dr. Les Bryan PROF 14(COMP METB)on 022 Albumin [Mass/Vol] 3.9 g/dL Normal 3.4-5.0 [facility] Comment on above: Performed By: #### BARBER STEVENSONRO #### [facility] [address] [place] [address] Dr. Les Bryan Albumin/Globulin [Mass ratio] 0.9 {ratio} Normal [facility] Comment on above: Performed By: #### BARBER STEVENSONRO #### [facility] [address] [place] [address] Dr. Les Bryan ALP [Catalytic activity/Vol] 137 U/L Critically high 46-116 [facility] Comment on above: Performed By: #### BARBER STEVENSONRO #### [facility] [address] [place] [address] Dr. Les Bryan ALT [Catalytic activity/Vol] 104 U/L Critically high 14-59 [facility] Comment on above: Performed By: #### BARBER STEVENSONRO #### [facility] [address] [place] [address] Dr. Les Bryan Anion gap [Moles/Vol] 13.3 mmol/L Normal [facility] Comment on above: Performed By: #### BARBER STEVENSONRO #### [facility] [address] [place] [address] Dr. Les Bryan AST [Catalytic activity/Vol] 59 U/L Critically high 15-37 [facility] Comment on above: Performed By: #### BARBER STEVENSONRO #### [facility] [address] [place] [address] Dr. Les Bryan Bilirubin [Mass/Vol] 0.3 mg/dL Normal 0.2-1.0 [facility] Comment on above: Performed By: #### E RUR, UMICRO #### [facility] [address] [address] [address] Les Bryan Calcium [Mass/Vol] 9.0 mg/dL Normal 8.5-10.1 [facility] Comment on above: Performed By: #### E LOKESHR, UMICRO #### [facility] [address] [place] [address] Dr. Les Bryan Chloride [Moles/Vol] 104 mmol/L Normal 98-107 [facility] Comment on above: Performed By: #### E LOKESHR, UMICRO #### [facility] [address] [place] [address] Dr. Les Bryan CO2 [Moles/Vol] 25.0 mmol/L Normal 21.0-32.0 [facility] Comment on above: Performed By: #### Andi GUY, UMICRO #### [facility] [address] [place] [address] Dr. Les Bryan Creatinine [Mass/Vol] 0.70 mg/dL Normal 0.55-1.02 [facility] Comment on above: Performed By: #### Andi GUY, UMICRO #### [facility] [address] [place] [address] Dr. Les Bryan EGFR-AF SCOTTISH 111 mL/min/1.73m2 Normal >=60 [facility] Comment on above: Performed By: #### Andi GUY, UMICRO #### [facility] [address] [place] [address] Dr. Les Bryan EGFR-NON AF SCOTTISH 92 mL/min/1.73m2 Normal >=60 [facility] Comment on above: Performed By: #### E BROOKS, UMICRO #### [facility] [address] [place] [address] Dr. Les Bryan Globulin (S) [Mass/Vol] 4.3 g/dL Normal [facility] Comment on above: Performed By: #### Andi GUY, UMICRO #### [facility] [address] [place] [address] Dr. Les Bryan Glucose [Mass/Vol] 104 mg/dL Normal 74-106 [facility] Comment on above: Performed By: #### RICARDO STEVENSON #### [facility] [address] [place] [address] Dr. Les Bryan Potassium [Moles/Vol] 4.3 mmol/L Normal 3.5-5.1 [facility] Comment on above: Performed By: #### RICARDO STEVENSON #### [facility] [address] [place] [address] Dr. Les Bryan Protein [Mass/Vol] 8.2 g/dL Normal 6.4-8.2 [facility] Comment on above: Performed By: #### RICARDO STEVENSON #### [facility] [address] [place] [address] Dr. Les Bryan Sodium [Moles/Vol] 138 mmol/L Normal 136-145 [facility] Comment on above: Performed By: #### RICARDO STEVENSON #### [facility] [address] [place] [address] Dr. Les Bryan Urea nitrogen [Mass/Vol] 10.0 mg/dL Normal 7.0-18.0 [facility] Comment on above: Performed By: #### RICARDO STEVENSON #### [facility] [address] [place] [address] Dr. Les Bryan Urea nitrogen/Creatinine [Mass ratio] 14.3 mg/mg Normal [facility] Comment on above: Performed By: #### RICARDO STEVENSON #### [facility] [address] [place] [address] Dr. Les Bryan TSHon 04-17-2022 TSH 4.067 uIU/mL Critically high 0.358-3.740 [facility] Comment on above: Performed By: #### T SH, DBIL, BNP, FT3, T7, LIPID, CMP #### [facility] [address] [place] [address] Dr. Les Bryan INSULINon 04-06-2022 Insulin 34.6 uIU/mL Critically high 2.6-24.9 [facility] Comment on above: Performed By: #### RICARDO STEVENSON #### [facility] [address] [place] [address] Dr. Les Bryan Physician Referralon 022 Physician Referral [id number] [facility] T4 LABCORPon 04-06-2022 T4 [Mass/Vol] 6.7 ug/dL Normal 4.5-12.0 [facility] Comment on above: Performed By: #### [id number] #### [facility] [address] [place] [address] Dr. Les Bryan BNPon 04-05-2022 Natriuretic peptide B (Bld) [Mass/Vol] 18.0 pg/mL Normal <=450.0 [facility] Comment on above: Performed By: #### RICARDO STEVENSON #### [facility] [address] [place] [address] Dr. Les Bryan CBC AUTO DIFFon 04-05-2022 BASO # 0.1 103/ul Normal 0.0-0.1 [facility] Comment on above: Performed By: #### [id number] #### [facility] [address] [place] [address] Dr. Les Bryan Basophils/100 WBC (Bld) 0.6 % Normal 0.2-2.0 [facility] Comment on above: Performed By: #### 4 [id number] #### [facility] [address] [place] [address] Dr. Les Bryan EO # 0.2 103/ul Normal 0.0-0.7 [facility] Comment on above: Performed By: #### 4 [id number] #### [facility] [address] [place] [address] Dr. Les Bryan Eosinophils/100 WBC (Bld) 1.9 % Normal 0.9-7.0 [facility] Comment on above: Performed By: #### 4 [id number] #### [facility] [address] [place] [address] Dr. Les Bryan Erythrocyte distribution width (RBC) [Ratio] 13.3 % Normal 11.0-15.0 [facility] Comment on above: Performed By: #### 4 [id number] #### [facility] [address] [place] [address] Dr. Les Bryan Hematocrit (Bld) [Volume fraction] 39.1 % Normal 36.0-48.0 [facility] Comment on above: Performed By: #### 4 [id number] #### [facility] [address] [place] [address] Dr. Les Bryan Hemoglobin (Bld) [Mass/Vol] 13.2 g/dL Normal 12.0-16.0 [facility] Comment on above: Performed By: #### 4 [id number] #### [facility] [address] [place] [address] Dr. Les Bryan IG # 0.08 10e3/ul Critically high 0.00-0.03 [facility] Comment on above: Performed By: #### 4 [id number] #### [facility] [address] [place] [address] Dr. Les Bryan IG % 0.8 % Critically high 0.0-0.[address] [facility] Comment on above: Performed By: #### 4 [id number] #### [facility] [address] [place] [address] Dr. Les Bryan LYMPH # 3.0 103/ul Normal 1.2-3.8 [facility] Comment on above: Performed By: #### 4 [id number] #### [facility] [address] [place] [address] Dr. Les Bryan Lymphocytes/100 WBC (Bld) 31.4 % Normal 20.5-60.0 [facility] Comment on above: Performed By: #### 4 [id number] #### [facility] [address] [place] [address] Dr. Les Bryan MANUAL DIFF REQ NO Normal [facility] Comment on above: Performed By: #### 4 [id number] #### [facility] [address] [place] [address] Dr. Les Bryan MCH (RBC) [Entitic mass] 30.1 pg Normal 26.7-34.0 [facility] Comment on above: Performed By: #### 4 [id number] #### [facility] [address] [place] [address] Dr. Les Bryan MCHC (RBC) [Mass/Vol] 33.8 g/dL Normal 29.9-35.2 [facility] Comment on above: Performed By: #### 4 [id number] #### [facility] [address] [place] [address] Dr. Les Bryan MCV (RBC) [Entitic vol] 89.1 fL Normal 81.0-99.0 [facility] Comment on above: Performed By: #### 4 [id number] #### [facility] [address] [place] [address] Dr. Les Bryan MONO # 0.6 103/ul Normal 0.3-0.8 [facility] Comment on above: Performed By: #### 4 [id number] #### [facility] [address] [place] [address] Dr. Les Bryan Monocytes/100 WBC (Bld) 6.1 % Normal 1.7-12.0 [facility] Comment on above: Performed By: #### 4 [id number] #### [facility] [address] [place] [address] Dr. Les Bryan NEUT # 5.6 103/ul Normal 1.4-6.5 [facility] Comment on above: Performed By: #### 4 [id number] #### [facility] [address] [place] [address] Dr. Les Bryan Neutrophils/100 WBC (Bld) 59.2 % Normal 43.0-75.0 [facility] Comment on above: Performed By: #### 4 [id number] #### [facility] [address] [place] [address] Dr. Les Bryan Platelet mean volume (Bld) [Entitic vol] 9.0 fL Critically low 9.5-13.5 [facility] Comment on above: Performed By: #### 4 [id number] #### [facility] [address] [place] [address] Dr. Les Bryan PLT 286 103/ul Normal 150-450 [facility] Comment on above: Performed By: #### 4 [id number] #### [facility] [address] [place] [address] Dr. Les Bryan RBC 4.39 106/ul Normal 4.20-5.40 [facility] Comment on above: Performed By: #### 4 [id number] #### [facility] [address] [place] [address] Dr. Les Bryan WBC 9.5 103/ul Normal 4.0-11.0 [facility] Comment on above: Performed By: #### 4 [id number] #### [facility] [address] [place] [address] Dr. Les Bryan FREE T3on 04-05-2022 FREE T3 2.73 pg/mlL Normal 2.18-3.98 [facility] Comment on above: Performed By: #### BARBER STEVENSONRO #### [facility] [address] [place] [address] Dr. Les Bryan FREE THYROXINE INDEX T7on FTI 2.08 Normal 1.30-4.50 [facility] Comment on above: Performed By: #### Andi GUY [facility] #### [facility] [address] [place] [address] Dr. Les Bryan T3U 31.0 % Normal 30.0-39.0 [facility] Comment on above: Performed By: #### SABINE STEVENSONICRO #### [facility] [address] [place] [address] Dr. Les Bryan T4 [Mass/Vol] 6.70 ug/dL Normal 4.80-13.90 [facility] Comment on above: Result Comment: T4 t esting performed by [facility] Performed By: #### SABINE STEVENSONICRO #### [facility] [address] [place] [address] Dr. Les Bryan GLYCOHEMOGLOBIN A1Con 2021 ADA RECOMMENDATION SEE BELOW Normal [facility] Comment on above: Result Comment: ADA RECOMMENDED LIMIT 4.0 - 6.0 ADA THERAPEUTIC TARGET < 7.0 ACTION SUGGESTED > 7.0 Performed By: #### [id number] #### [facility] [address] [address] [address] Les Bryan Glucose [Mass/Vol] 120 mg/dL Normal [facility] Comment on above: Performed By: #### 4 [id number] #### [facility] [address] [address] [address] Les Bryan HbA1c (Bld) [Mass fraction] 5.8 % Normal 4.5-6.2 [facility] Comment on above: Performed By: #### 4 [id number] #### [facility] [address] [place] [address] Dr. Les Bryan IRONon 04-05-2022 Iron [Mass/Vol] 105.0 ug/dL Normal 50.0-170.0 [facility] Comment on above: Performed By: #### RICARDO STEVENSON #### [facility] [address] [address] [address] Les Bryan LIPID PROFILEon 04-05-2022 CHOL-HDL RATIO NORM SEE BELOW Normal [facility] Comment on above: Result Comment: 3.3 - 4.4 LOW RISK 4.4 - 7.1 AVERAGE RISK 7.1 - 11.0 MODERATE RISK >11.0 HIGH RISK Performed By: #### RICARDO STEVENSON #### [facility] [address] [address] [address] Les Bryan Cholesterol [Mass/Vol] 217 mg/dL Critically high <=200 [facility] Comment on above: Performed By: #### RICARDO STEVENSON #### [facility] [address] [place] [address] Dr. Les Bryan Cholesterol in HDL [Mass/Vol] 49 mg/dL Normal 40-60 [facility] Comment on above: Performed By: #### RICARDO STEVENSON #### [facility] [address] [place] [address] Dr. Les Bryan Cholesterol in LDL [Mass/Vol] 128.2 mg/dL Normal [facility] Comment on above: Performed By: #### RICARDO STEVENSON #### [facility] [address] [place] [address] Dr. Les Bryan Cholesterol.total/Ch olesterol in HDL [Mass ratio] 4.4 {ratio} Normal [facility] Comment on above: Performed By: #### BARBER STEVENSONRO #### [facility] [address] [place] [address] Dr. Les Bryan HDL NORMAL > or = 60 mg/dl - LOW CARDIOVASCULAR RISK <40 mg/dl - HIGH CARDIOVASCULAR RISK Normal [facility] Comment on above: Performed By: #### RICARDO STEVENSON #### [facility] [address] [place] [address] Dr. Les Bryan LDL CALC NORMAL SEE BELOW Normal [facility] Comment on above: Result Comment: <100 mg/dl OPTIMAL 100 - 129 mg/dl NEAR OR ABOVE OPTIMAL 130 - 159 mg/dl BORDERLINE HIGH 160 - 189 mg/dl HIGH >190 mg/dl VERY HIGH Performed By: #### RICARDO STEVENSON #### [facility] [address] [place] [address] Dr. Les Bryan Triglyceride [Mass/Vol] 199 mg/dL Critically high <=150 [facility] Comment on above: Performed By: #### RICARDO STEVENSON #### [facility] [address] [place] [address] Dr. Les Bryan VLDL CALC 39.8 mg/dL Normal [facility] Comment on above: Performed By: #### RICARDO STEVENSON #### [facility] [address] [place] [address] Dr. Les Bryan PROF 14(COMP METB)on 022 Albumin [Mass/Vol] 3.8 g/dL Normal 3.4-5.0 [facility] Comment on above: Performed By: #### RICARDO STEVENSON #### [facility] [address] [address] [address] Les Bryan Albumin/Globulin [Mass ratio] 0.9 {ratio} Normal [facility] Comment on above: Performed By: #### BARBER STEVENSONRO #### [facility] [address] [place] [address] Dr. Les Bryan ALP [Catalytic activity/Vol] 122 U/L Critically high 46-116 [facility] Comment on above: Performed By: #### Andi GUY UMICRO #### [facility] [address] [place] [address] Dr. Les Bryan ALT [Catalytic activity/Vol] 90 U/L Critically high 14-59 [facility] Comment on above: Performed By: #### Andi GUY UMICRO #### [facility] [address] [place] [address] Dr. Les Bryan Anion gap [Moles/Vol] 13.5 mmol/L Normal [facility] Comment on above: Performed By: #### Andi GUY UMICRO #### [facility] [address] [place] [address] Dr. Les Bryan AST [Catalytic activity/Vol] 63 U/L Critically high 15-37 [facility] Comment on above: Performed By: #### Andi GUY UMICRO #### [facility] [address] [place] [address] Dr. Les Bryan Bilirubin [Mass/Vol] 0.4 mg/dL Normal 0.2-1.0 [facility] Comment on above: Performed By: #### Andi GUY, UMICRO #### [facility] [address] [place] [address] Dr. Les Bryan Calcium [Mass/Vol] 9.3 mg/dL Normal 8.5-10.1 [facility] Comment on above: Performed By: #### Andi GUY, UMICRO #### [facility] [address] [place] [address] Dr. Les Bryan Chloride [Moles/Vol] 103 mmol/L Normal 98-107 [facility] Comment on above: Performed By: #### E RUR, UMICRO #### [facility] [address] [address] [address] Les Bryan CO2 [Moles/Vol] 24.6 mmol/L Normal 21.0-32.0 [facility] Comment on above: Performed By: #### E RUR, UMICRO #### [facility] [address] [address] [address] Les Bryan Creatinine [Mass/Vol] 0.70 mg/dL Normal 0.55-1.02 [facility] Comment on above: Performed By: #### E LOKESHR, UMICRO #### [facility] [address] [address] [address] Les Bryan EGFR-AF SCOTTISH >60 Normal >=60 [facility] Comment on above: Performed By: #### E LOKESHR, UMICRO #### [facility] [address] [address] [address] Les Bryan EGFR-NON AF SCOTTISH >60 Normal >=60 [facility] Comment on above: Performed By: #### Andi CAMPAR, UMICRO #### [facility] [address] [address] [address] Les Bryan Globulin (S) [Mass/Vol] 4.1 g/dL Normal [facility] Comment on above: Performed By: #### Andi CAMPAR, UMICRO #### [facility] [address] [address] [address] Les Bryan Glucose [Mass/Vol] 110 mg/dL Critically high 74-106 [facility] Comment on above: Performed By: #### E LOKESHR, UMICRO #### [facility] [address] [address] [address] Les Bryan Potassium [Moles/Vol] 4.1 mmol/L Normal 3.5-5.1 [facility] Comment on above: Performed By: #### E RUR, UMICRO #### [facility] [address] [address] [address] Les Bryan Protein [Mass/Vol] 7.9 g/dL Normal 6.4-8.2 [facility] Comment on above: Performed By: #### BARBER STEVENSONRO #### [facility] [address] [place] [address] Dr. Les Bryan Sodium [Moles/Vol] 137 mmol/L Normal 136-145 [facility] Comment on above: Performed By: #### BARBER STEVENSONRO #### [facility] [address] [place] [address] Dr. Les Bryan Urea nitrogen [Mass/Vol] 9.0 mg/dL Normal 7.0-18.0 [facility] Comment on above: Performed By: #### BARBER STEVENSONRO #### [facility] [address] [place] [address] Dr. Les Bryan Urea nitrogen/Creatinine [Mass ratio] 12.9 mg/mg Normal [facility] Comment on above: Performed By: #### BARBER STEVENSONRO #### [facility] [address] [place] [address] Dr. Les Bryan TSHon 04-05-2022 TSH 3.572 uIU/mL Normal 0.358-3.740 [facility] Comment on above: Performed By: #### BARBER STEVENSONRO #### [facility] [address] [place] [address] Dr. Les Bryan TSH RANGE SEE BELOW Normal [facility] Comment on above: Result Comment: <0.3 4 UIU/ml HYPERTHYROID 0.34-5.60 UIU/ml EUTHYROID >5.60 UIU/ml HYPOTHYROID Performed By: #### BARBER STEVENSONRO #### [facility] [address] [place] [address] Dr. Les Bryan XR KUB 1 VIEWon [...] AMANDA CASSIDY Date: 2022-02-27 15:05 Normal [facility] AMYLASEon 02-25-2022 Amylase [Catalytic activity/Vol] 34 U/L Normal 25-115 [facility] Comment on above: Performed By: #### [id number] #### [facility] [address] [place] [address] Dr. Les Bryan CBC AUTO DIFFon 02-25-2022 BASO # 0.0 103/ul Normal 0.0-0.1 [facility] Comment on above: Performed By: #### C BC #### [facility] [address] [place] [address] Dr. Les Bryan Basophils/100 WBC (Bld) 0.4 % Normal 0.2-2.0 [facility] Comment on above: Performed By: #### C BC #### [facility] [address] [place] [address] Dr. Les Bryan EO # 0.3 103/ul Normal 0.0-0.7 [facility] Comment on above: Performed By: #### C BC #### [facility] [address] [place] [address] Dr. Les Bryan Eosinophils/100 WBC (Bld) 3.6 % Normal 0.9-7.0 [facility] Comment on above: Performed By: #### C BC #### [facility] [address] [place] [address] Dr. Les Bryan Erythrocyte distribution width (RBC) [Ratio] 13.1 % Normal 11.0-15.0 [facility] Comment on above: Performed By: #### C BC #### [facility] [address] [place] [address] Dr. Les Bryan Hematocrit (Bld) [Volume fraction] 40.6 % Normal 36.0-48.0 [facility] Comment on above: Performed By: #### C BC #### [facility] [address] [address] [address] Les Bryan Hemoglobin (Bld) [Mass/Vol] 13.3 g/dL Normal 12.0-16.0 [facility] Comment on above: Performed By: #### C BC #### [facility] [address] [place] [address] Dr. Les Bryan IG # 0.06 10e3/ul Critically high 0.00-0.03 [facility] Comment on above: Performed By: #### C BC #### [facility] [address] [place] [address] Dr. Les Bryan IG % 0.6 % Critically high 0.0-0.[address] [facility] Comment on above: Performed By: #### C BC #### [facility] [address] [place] [address] Dr. Les Bryan LYMPH # 3.6 103/ul Normal 1.2-3.8 [facility] Comment on above: Performed By: #### C BC #### [facility] [address] [place] [address] Dr. Les Bryan Lymphocytes/100 WBC (Bld) 38.2 % Normal 20.5-60.0 [facility] Comment on above: Performed By: #### C BC #### [facility] [address] [place] [address] Dr. Les Bryan MANUAL DIFF REQ NO Normal [facility] Comment on above: Performed By: #### C BC #### [facility] [address] [place] [address] Dr. Les Bryan MCH (RBC) [Entitic mass] 29.7 pg Normal 26.7-34.0 [facility] Comment on above: Performed By: #### C BC #### [facility] [address] [place] [address] Dr. Les Bryan MCHC (RBC) [Mass/Vol] 32.8 g/dL Normal 29.9-35.2 [facility] Comment on above: Performed By: #### C BC #### [facility] [id number] Les Bryan MCV (RBC) [Entitic vol] 90.6 fL Normal 81.0-99.0 [facility] Comment on above: Performed By: #### C BC #### [facility] [address] [address] [address] Les Bryan MONO # 0.5 103/ul Normal 0.3-0.8 [facility] Comment on above: Performed By: #### C BC #### [facility] [address] [address] [address] Les Bryan Monocytes/100 WBC (Bld) 5.4 % Normal 1.7-12.0 [facility] Comment on above: Performed By: #### C BC #### [facility] [address] [place] [address] Dr. Les Bryan NEUT # 4.9 103/ul Normal 1.4-6.5 [facility] Comment on above: Performed By: #### C BC #### [facility] [address] [place] [address] Dr. Les Bryan Neutrophils/100 WBC (Bld) 51.8 % Normal 43.0-75.0 [facility] Comment on above: Performed By: #### C BC #### [facility] [facility] [address] [place] [address] Dr. Les Bryan Platelet mean volume (Bld) [Entitic vol] 9.2 fL Critically low 9.5-13.5 [facility] Comment on above: Performed By: #### C BC #### [facility] [address] [place] [address] Dr. Les Bryan PLT 335 103/ul Normal 150-450 [facility] Comment on above: Performed By: #### C BC #### [facility] [address] [place] [address] Dr. Les Bryan RBC 4.48 106/ul Normal 4.20-5.40 [facility] Comment on above: Performed By: #### C BC #### [facility] [address] [place], [place] [id number] Dr. Les Bryan WBC 9.4 103/ul Normal 4.0-11.0 [facility] Comment on above: Performed By: #### C #### [facility] [address] [place], [place] [address] ABD/PELVIS WO CONon [...] IWONA BRITT Date: 2022-02-25 19:05 Normal [facility] ER URINE PROFILEon 2 Bilirubin Ql (U) Negative Normal NEGATIVE [facility] Comment on above: Performed By: #### Andi GUY UMICRO #### [facility] [address] [place] [address] Dr. Les Bryan Clarity (U) CLEAR Normal CLEAR [facility] Comment on above: Performed By: #### Andi GUY UMICRO #### [facility] [address] [place] [address] [address] Les Bryan Color (U) YELLOW Normal YELLOW [facility] Comment on above: Performed By: #### Andi GUY UMICRO #### [facility] [address] [place] [address] Dr. Les MOY A micrscopic examination will be performed if indicated. Normal [facility] Comment on above: Performed By: #### Andi GUY UMICRO #### [facility] [address] [place] [address] Dr. Les Bryan Glucose Ql (U) Negative Normal NEGATIVE [facility] Comment on above: Performed By: #### Andi GUY UMICRO #### [facility] [address] [place] [address] Dr. Les Bryan Hemoglobin Ql (U) LARGE Abnormal NEGATIVE [facility] Comment on above: Performed By: #### Andi GUY UMICRO #### [facility] [address] [place] [address] Dr. Les Bryan Ketones Ql (U) Negative Normal NEGATIVE [facility] Comment on above: Performed By: #### Andi GUY UMICRO #### [facility] [address] [place] [address] Dr. Les Bryan LEUKOCYTES TRACE Abnormal NEGATIVE [facility] Comment on above: Performed By: #### Andi GUY UMICRO #### [facility] [address] [place] [address] Dr. Les Bryan Nitrite Ql (U) Negative Normal NEGATIVE [facility] Comment on above: Performed By: #### Andi GUY UMICRO #### [facility] [address] [place] [address] Dr. Les Bryna pH (U) 7.0 [pH] Normal 5-9 [facility] Comment on above: Performed By: #### RICARDO STEVENSON #### [facility] [address] [place] [address] Dr. Les Bryan Protein (U) [Mass/Vol] 30 mg/dL Abnormal NEGATIVE/ TRACE [facility] Comment on above: Performed By: #### BARBER STEVENSONRO #### [facility] [address] [place] [address] Dr. Les Bryan SPEC GRAVITY 1.025 Normal 1.005-<=1.[address] [facility] Comment on above: Performed By: #### RICARDO STEVENSON #### [facility] [address] [place] [address] Dr. Les Bryan UR MICRO IND INDICATED Normal [facility] Comment on above: Performed By: #### RICARDO STEVENSON #### [facility] [address] [place] [address] Dr. Les Bryan Urobilinogen Qn (U) 0.2 {Racquel'U}/dL Normal 0.2 - 1. 0 [facility] Comment on above: Performed By: #### RICARDO STEVENSON #### [facility] [address] [place] [address] Dr. Les Bryan LIPASEon 02-25-2022 Lipase [Catalytic activity/Vol] 82.0 U/L Normal 73.0-393.0 [facility] Comment on above: Performed By: #### [id number] #### [facility] [address] [place] [address] Dr. Les Bryan PROF 14(COMP METB)on 022 Albumin [Mass/Vol] 3.7 g/dL Normal 3.4-5.0 [facility] Comment on above: Performed By: #### [id number] #### [facility] [address] [place] [address] Dr. Les Bryan Albumin/Globulin [Mass ratio] 0.9 {ratio} Normal [facility] Comment on above: Performed By: #### 4 [id number] #### [facility] [address] [place] [address] [address] Les Bryan ALP [Catalytic activity/Vol] 129 U/L Critically high 46-116 [facility] Comment on above: Performed By: #### 4 [id number] #### [facility] [address] [place] [address] [address] Les Bryan ALT [Catalytic activity/Vol] 86 U/L Critically high 14-59 [facility] Comment on above: Performed By: #### [id number] #### [facility] [address] [place] [address] [address] Les Bryan Anion gap [Moles/Vol] 15.3 mmol/L Normal [facility] Comment on above: Performed By: #### 4 [id number] #### [facility] [address] [place] [address] [address] Les Bryan AST [Catalytic activity/Vol] 51 U/L Critically high 15-37 [facility] Comment on above: Performed By: #### 4 [id number] #### [facility] [address] [place] [address] [address] Les Bryan Bilirubin [Mass/Vol] 0.2 mg/dL Normal 0.2-1.0 [facility] Comment on above: Performed By: #### 4 [id number] #### [facility] [address] [place] [address] [address] Les Bryan Calcium [Mass/Vol] 8.4 mg/dL Critically low 8.5-10.1 [facility] Comment on above: Performed By: #### 4 [id number] #### [facility] [address] [place] [address] [address] Les Bryan Chloride [Moles/Vol] 103 mmol/L Normal 98-107 [facility] Comment on above: Performed By: #### 4 [id number] #### [facility] [address] [place] [address] [address] Les Bryan CO2 [Moles/Vol] 26.2 mmol/L Normal 21.0-32.0 [facility] Comment on above: Performed By: #### 4 [id number] #### [facility] [address] [place] [address] [address] Les Bryan Creatinine [Mass/Vol] 0.72 mg/dL Normal 0.55-1.02 [facility] Comment on above: Performed By: #### 4 [id number] #### [facility] [address] [place] [address] [address] Les Bryan EGFR-AF SCOTTISH >60 Normal >=60 [facility] Comment on above: Performed By: #### [id number] #### [facility] [address] [place] [address] [address] Les Bryan EGFR-NON AF SCOTTISH >60 Normal >=60 [facility] Comment on above: Performed By: #### 4 [id number] #### [facility] [address] [place] [address] [address] Les Bryan Globulin (S) [Mass/Vol] 4.2 g/dL Normal [facility] Comment on above: Performed By: #### 4 [id number] #### [facility] [address] [place] [address] [address] Les Bryan Glucose [Mass/Vol] 121 mg/dL Critically high 74-106 [facility] Comment on above: Performed By: #### 4 [id number] #### [facility] [address] [place] [address] [address] Les Bryan Potassium [Moles/Vol] 3.5 mmol/L Normal 3.5-5.1 [facility] Comment on above: Performed By: #### [id number] #### [facility] [address] [place] [address] [address] Les Bryan Protein [Mass/Vol] 7.9 g/dL Normal 6.1-8.2 [facility] Comment on above: Performed By: #### 4 [id number] #### [facility] [address] [place] [address] [address] Les Bryan Sodium [Moles/Vol] 141 mmol/L Normal 136-145 [facility] Comment on above: Performed By: #### 4 [id number] #### [facility] [address] [place] [address] [address] Les Bryan Urea nitrogen [Mass/Vol] 14.0 mg/dL Normal 7.0-18.0 [facility] Comment on above: Performed By: #### 4 [id number] #### [facility] [address] [place] [address] Dr. Les Bryan Urea nitrogen/Creatinine [Mass ratio] 19.4 mg/mg Normal [facility] Comment on above: Performed By: #### 4 [id number] #### [facility] [address] [place] [address] Dr. Les Bryan URINE MICROSCOPIC ONLYon BACTERIA TRACE Abnormal NONE SEEN [facility] Comment on above: Performed By: #### E RUR, UMICRO #### [facility] [address] [place] [address] Dr. Les Bryan Bacteria identified Cx Nom (U) NOT INDICATED Normal [facility] Comment on above: Performed By: #### E RUR, UMICRO #### [facility] [address] [place] [address] Dr. Les Bryan CAST NONE SEEN Normal NONE SEEN [facility] Comment on above: Performed By: #### E RUR, UMICRO #### [facility] [address] [place] [address] Dr. Les Bryan Crystals LM Nom (Urine sed) NONE SEEN Normal NONE SEEN [facility] Comment on above: Performed By: #### E RUR, UMICRO #### [facility] [address] [place] [address] Dr. Les Bryan Epithelial cells LM Ql (Urine sed) MODERATE Abnormal NONE SEEN /RARE [facility] Comment on above: Performed By: #### E RUR, UMICRO #### [facility] [address] [place] [address] Dr. Les Bryan MUCOUS NONE SEEN Normal NONE SEEN [facility] Comment on above: Performed By: #### E RUR, UMICRO #### [facility] [address] [place], [place] [address] Dr. Les Bryan RBC 20-50 Abnormal 0-2 [facility] Comment on above: Result Comment: cren ated RBCs Performed By: #### RICARDO STEVENSON #### [facility] [address] [place], [place] [address] Dr. Les Bryan WBC 2-5 Abnormal NONE SEEN [facility] Comment on above: Performed By: #### RICARDO STEVENSON #### [facility] [address] [place], [place] [address] Dr. Les Bryan Social History Date Type Detail Facility Start: 04-21-2022 Tobacco smoking status Ex-smoker (fi nding) [facility] Start: 1980 Sex Assigned At Female [facility] Tobacco smoking status Never [facility] Sex Assigned At Female [facility] Vital Signs Date Time Vital Sign Value Performing Clinician Facility 09-13-2023 10:30-0500 Body height 162.56 cm Shae Love Other [employer] [facility] [employer] Other 09-13-2023 10:30-0500 Body mass index (BMI) [Ratio] 23.14 kg/m2 Shae Love Other [employer] Other 09-13-2023 10:30-0500 Body temperature 98.4 [degF] Shae Love Other [employer] Other 09-13-2023 10:30-0500 Body weight 61.15 kg Shae Love Other [employer] Other 09-13-2023 10:30-0500 Respiratory rate 18 /min Shae Love Other [employer] Other 09-13-2023 10:30-0500 SaO2% (BldA) [Mass fraction] 99 % Shae Love Other [facility] [employer] Other 04-21-2022 09:07-0400 Blood Pressure Location [employer] [facility] [place] 04-21-2022 09:07-0400 Diastolic blood pressure 86 mm[Hg] [facility]l [employer] [facility] [place] 04-21-2022 09:07-0400 Heart rate 92 /min [employer]l [employer] [facility] [place] 04-21-2022 09:07-0400 Respiratory rate 16 /min Jl [employer] [facility] [place] 04-21-2022 09:07-0400 Systolic blood pressure 127 mm[Hg] Jl NILL [facility] [place] Functional Status Date Assessment Result Facility 04-21-2022 Functional Status N/A [facility] [place] Evaluation note 09-13-2023 Note Date & Type [...] understanding and is agreeable to treatment plan [employer] Other Clinical Note 04-21-2022 Note Date & [...] Mother. Primary malignant neoplasm of bladder: Father. [facility] Comment on above: Result Comment: Elec tronically Signed By: Jl FREDERICK MD\.br\Date and Time Signed: 04/21/22 09:48 EDT Evaluation + Plan note Note Date & Type Note Facility Evaluation + Plan note Future Appointments Appointment Date:05/03/2022 03:00:00 PM Scheduled Provider:Jl FREDERICK MD Location:[facility] Appointment Type: Procedure 30 [facility] [place] Evaluation + Plan note Note Date & Type Note Facility Evaluation + Plan note Future Appointments Appointment Date:05/12/2022 03:40:00 PM Scheduled Provider:Jl FREDERICK MD Location:[facility] Appointment Type: Post Op 15 [facility] [place] Evaluation note Note Date & Type Note Facility Evaluation note No assessment information availa [facility] Work Phone: History general Narrative - Reported Note Date & Type Note Facility History general Narrative - Reported Type Medical History Anxiety disorder Medical History chronic depression Medical History thyriod Surgical History LEAP [employer] Other Hospital course Narrative Note Date & Type Note Facility Hospital course Narrative No data available for this section [facility] [place] Hospital Discharge instructions Note Date & Type Note Facility Hospital Discharge instructions No data available for this section [facility] [place] Progress note Note Date & Type Note Facility Progress note No data available for this section [facility] [place] Summary Purpose Family History No Family History [...] section and content) DATE CREATED AUTHOR 05/16/2022 [facility] DATE CREATED AUTHOR AUTHOR'S ORGANIZ ATION [facility]/20/2022 [facility] DATE CREATED AUTHOR AUTHOR'S ORGANIZ ATION 12/07/2023 [facility] REASON FOR VISIT (unrecogniz ed section and [...] BE BASED ON THE PRIMARY CLINICAL RECORDS. [facility] [employer] [facility]. provides no warranty or guarantee of the accuracy or completeness of information in this document.
== END 2024-04-25 08:01 | disposition home or self-care (01) ==
LOC: CT 08:00
PROVIDERS: PCP Family Medicine; Visit Provider Family Medicine
DX: Z00.00 Encounter for general adult medical examination without abnormal findings (principal); R22.2 Localized swelling, mass and lump, trunk; Z12.31 Encounter for screening mammogram for malignant neoplasm of breast; Z80.3 Family history of malignant neoplasm of breast; Z80.52 Family history of malignant neoplasm of bladder
CPT/HCPCS: 71250; 77063; 77067

== ENCOUNTER 2024-07-15 11:26 | Outpatient (OUT) | payer BC, SELFPAY ==
--- OUTSIDE RECORDS SUMMARY | 2024-07-15 11:43 | XMS_ITS | CCD ---
Author Organization [facility]ini[facility] Care Team Providers Care Senior Applications Engineer Name Role Phone Angelica De Primary Care Physician [phone] DR ANGELICA DE Primary Care Unavailable BEA [...] MCDERMOTT Attending Unavailable EMILY MCDERMOTT Admitting Unavailable JEREMÍAS, DR DOMINGUEZ Primary Care [...] Attending Unavailable JEREMÍAS, DR DOMINGUEZ Admitting Unavailable KHANH, DR AMANDA Nieves Consulting Unavailable Shae Love Unavailable RUBY Love Attending Provider [phone] Shae Love Attending Unavailable Shae Love Admitting Unavailable Allergies Allergy Classification Reported Allergen(s) Allergy Type Date of Onset Reaction(s) Facility (5 sources) Latex; Translations: [Latex] Drug allergy 3 Eruption of skin (disorder), rash [facility] (4 sources) Sulfamethoxazole / Trimethoprim; Translations: [sulfamethoxazole-tr imethoprim] Drug Allergy Weal (disorder), hives [facility] (2 sources) natural latex rubber Drug allergy (disorder) [facility] (2 sources) Sulfamethoxazole / Trimethoprim Drug Allergy [facility] (1 source) Sulfamethoxazole Drug Allergy 3 [facility] (1 source) Trimethoprim Drug Allergy 3 [facility] Medications Current Medications Medication Drug [...] (1 source) l-Thyroxine Levothyroxine So dium Not-Taking Bacon-Linyah (1 source) Bacon-Linyah Not- Taking Problems Active Problems Problem Classification [...] MALIG NEOPLASM OF BREAST] Onset: 09-07-2022 Episodic Residual codes; unclassified (1 source) Contact with and (suspected) exposure to other hazardous, chiefly nonmedicinal, chemicals; Translations: [Contact with and (suspected) exposure to other hazardous, chiefly nonmedicinal, chemicals] Onset: 06-12-2024 Episodic Thyroid disorders (3 sources) Hypothyroidism 04-14-2022 [...] Test Name Value Interpretation Reference Range Facility Drugs of Abuse, S/Mj 2023 Amphetamines, S/P Negative Normal Cutoff 20 [facility] Comment on above: Performed By: #### A DAU9S #### [facility] [address] [place] [address] Comptometer Operator: Trey Carroll MD #### CP, CDP, MG #### [facility] [address] [place], [place] [id number] Comptometer Operator: Belia Manjarrez MD Barbiturates, S/P Negative Normal Cutoff 50 [facility] Comment on above: Performed By: #### A DAU9S #### [facility] [address] [place] [address] Comptometer Operator: Trey Carroll MD #### CP, CDP, MG #### [facility] [address] [place], [place] [id number] Comptometer Operator: Belia Manjarrez MD Benzodiazepines, S/P Negative Normal Cutoff 50 [facility] Comment on above: Performed By: #### A DAU9S #### [facility] [address] [place] [address] Comptometer Operator: Trey Carroll MD #### CP, CDP, MG #### [facility] [address] [place], [place] [id number] Comptometer Operator: Belia Manjarrez MD Buprenorphine, S/P Negative Normal Cutoff 1 [facility] Comment on above: Performed By: #### A DAU9S #### [facility] [address] [place] [address] Comptometer Operator: Trey Carroll MD #### CP, CDP, MG #### [facility] [address] [place], [place] [id number] Comptometer Operator: Belia Manjarrez MD Cocaine, Serum/Plas Negative Normal Cutoff 20 [facility] Comment on above: Performed By: #### A DAU9S #### [facility] [address] [place] [address] Comptometer Operator: Trey Carroll MD #### CP, CDP, MG #### [facility] [address] [place] [address] Comptometer Operator: Belia Manjarrez MD Comment See Note Normal [facility] Comment on above: Result Comment: (NOT E) INTERPRETIVE INFORMATION: Drug Screen 9 Panel, Serum or Plasma - Immunoassay Screen with Reflex to Mass Spectrometry Confirmation/Quantitation 1. Methodology: Qualitative Immunoassay Screen 2. Drugs/Drug classes reported as Positive are automatically reflexed to mass spectrometry confirmation/quantitation testing. An immunoassay unconfirmed positive screen result may be useful for medical purposes but does not meet forensic standards. 3. The absence of expected drug(s) and/or drug metabolite(s) may indicate noncompliance, inappropriate timing of specimen collection relative to drug administration, poor drug absorption, or limitations of testing. The concentration at which the screening test can detect a drug or metabolite varies within a drug class. Specimens for which drugs or drug classes are detected by the screen are automatically reflexed to a second, more specific technology (mass spectrometry). The concentration value must be greater than or equal to the cutoff to be reported as positive. Interpretive questions should be directed to the laboratory. 4. For medical purposes only; not valid for forensic use. This test was developed and its performance characteristics determined by [facility]. It has not been cleared or approved by the [place] Food and Drug Administration. This test was performed in a CLIA certified laboratory and is intended for clinical purposes. Performed By: [facility] [address] [place] [address] [employer]acc[employer] Dealer: Trace Vazquez MD, PhD CLIA Number: [id number] Performed By: #### A DAU9S #### [address] [address] Comptometer Operator: Trey Carroll MD #### MARITZA ROMERO, MG #### [facility] [address] [place] [address] Comptometer Operator: Belia Manjarrez MD Methadone, S/P Negative Normal Cutoff 25 [facility] Comment on above: Performed By: #### A DAU9S #### [facility] [address] [place] [address] Comptometer Operator: Trey Carroll MD #### HEATHER CDP, MG #### [facility] [address] [place] [address] Comptometer Operator: Belia Manjarrez MD Methamphetamine,S/P Negative Normal Cutoff 20 [facility] Comment on above: Performed By: #### A DAU9S #### [facility] [address] [place] [address] Comptometer Operator: Trey Carroll MD #### CP, CDP, MG #### [facility] [address] [place], [place] [id number] Comptometer Operator: Belia Manjarrez MD Opiates, Serum/Plas Negative Normal Cutoff 20 [facility] Comment on above: Performed By: #### A DAU9S #### [facility] [address], [place] [id number] Comptometer Operator: Trey Carroll MD #### CP, CDP, MG #### [facility] [address] [place] [address] Comptometer Operator: Belia Manjarrez MD Oxycodone, S/P Negative Normal Cutoff 20 [facility] Comment on above: Performed By: #### A DAU9S #### [facility] [address] [place] [address] Comptometer Operator: Trey Carroll MD #### CP, CDP, MG #### [facility] [address] [place] [address] Comptometer Operator: Belia Manjarrez MD Phencyclidine, S/P Negative Normal Cutoff 10 [facility] Comment on above: Performed By: #### A DAU9S #### [facility] [address], [place] [id number] Comptometer Operator: Trey Carroll MD #### CP, CDP, MG #### [facility] [address] [place] [address] Comptometer Operator: Belia Manjarrez MD THC, Serum/Plasma Negative Normal Cutoff 20 [facility] Comment on above: Performed By: #### A DAU9S #### [facility] [address] [place] [address] Comptometer Operator: Trey Carroll MD #### CP, CDP, MG #### [facility] [address] [place] [address] Comptometer Operator: Belia Manjarrez MD CBC with Diffon 06-12-2024 Abs. Basophil 0.04 k/uL Normal 0.00-0.20 [facility] Comment on above: Performed By: #### A DAU9S #### [facility] [address], [place] [id number] Comptometer Operator: Trey Carroll MD #### HEATHER, CDP, MG #### [facility] [address] [place] [address] Comptometer Operator: Belia Manjarrez MD Abs.Imm.Granulocyte 0.06 k/uL Normal 0.00-0.30 [facility] Comment on above: Performed By: #### A DAU9S #### [facility] [address] [place] [address] Comptometer Operator: Trey Carroll MD #### CP, CDP, MG #### [facility] [address] [place] [address] Comptometer Operator: Belia Manjarrez MD Abs.Neutrophil (Seg) 6.02 k/uL Normal 1.50-8.10 [facility] Comment on above: Performed By: #### A DAU9S #### [facility] [address], [place] [id number] Comptometer Operator: Trey Carroll MD #### CP, CDP, MG #### [facility] [address] [place] [address] Comptometer Operator: Belia Manjarrez MD Basophils/100 WBC (Bld) 0 % Normal 0-2 [facility] Comment on above: Performed By: #### A DAU9S #### [facility] [address], [place] [id number] Comptometer Operator: Trey Carroll MD #### CP, CDP, MG #### [facility] [address] [place] [address] Comptometer Operator: Belia Manjarrez MD Eosinophils (Bld) [#/Vol] 0.16 10*3/uL Normal 0.00-0.44 [facility] Comment on above: Performed By: #### A DAU9S #### [facility] [address] [place] [address] Comptometer Operator: Trey Carroll MD #### CP, CDP, MG #### [facility] [address] [place] [address] [place] [address] Comptometer Operator: Belia Manjarrez MD Eosinophils/100 WBC (Bld) 2 % Normal 1-4 [facility] Comment on above: Performed By: #### A DAU9S #### [facility] [address] [place], [place] [id number] Comptometer Operator: Trey Carroll MD #### HEATHER, CDP, MG #### [facility] [address] [place] [address] Comptometer Operator: Belia Manjarrez MD Erythrocyte distribution width (RBC) [Ratio] 13.3 % Normal 11.8-14.4 [facility] Comment on above: Performed By: #### A DAU9S #### [facility] [address] [place], [place] [id number] Comptometer Operator: Trey Carroll MD #### CP, CDP, MG #### [facility] [address] [place] [address] Comptometer Operator: Belia Manjarrez MD Hematocrit (Bld) [Volume fraction] 41.0 % Normal 36.3-47.1 [facility] Comment on above: Performed By: #### A DAU9S #### [facility] [address] [place], [place] [id number] Comptometer Operator: Trey Carroll MD #### CP, CDP, MG #### [facility] [address] [place] [address] Comptometer Operator: Belia Manjarrez MD Hemoglobin (Bld) [Mass/Vol] 14.1 g/dL Normal 11.9-15.1 [facility] Comment on above: Performed By: #### A DAU9S #### [facility] [address] [place], [place] [id number] Comptometer Operator: Trey Carroll MD #### CP, CDP, MG #### [facility] [address] [place] [address] Comptometer Operator: Belia Manjarrez MD Immature granulocytes/100 WBC (Bld) 1 % High 0 [facility] Comment on above: Performed By: #### A DAU9S #### [facility] [address] [place], [place] [id number] Comptometer Operator: Trey Carroll MD #### HEATHER, CDP, MG #### [facility] [address] [place] [address] Comptometer Operator: Belia Manjarrez MD Lymphocytes (Bld) [#/Vol] 3.39 10*3/uL Normal 1.10-3.70 [facility] Comment on above: Performed By: #### A DAU9S #### [facility] [address] [place], [place] [id number] Comptometer Operator: Trey Carroll MD #### CP, CDP, MG #### [facility] [address] [place] [address] Comptometer Operator: Belia Manjarrez MD Lymphocytes/100 WBC (Bld) 33 % Normal 24-43 [facility] Comment on above: Performed By: #### A DAU9S #### [facility] [address] [place], [place] [id number] Comptometer Operator: Trey Carroll MD #### CP, CDP, MG #### [facility] [address] [place] [address] Comptometer Operator: Belia Manjarrez MD MCH (RBC) [Entitic mass] 30.9 pg Normal 25.2-33.5 [facility] Comment on above: Performed By: #### A DAU9S #### [facility] [address] [place], [place] [id number] Comptometer Operator: Trey Carroll MD #### HEATHER, CDP, MG #### [facility] [address] [place] [address] Comptometer Operator: Belia Manjarrez MD MCHC (RBC) [Mass/Vol] 34.4 g/dL Normal 28.4-34.8 [facility] Comment on above: Performed By: #### A DAU9S #### [facility] [address] [place] [address] Comptometer Operator: Trey Carroll MD #### CP, CDP, MG #### [facility] [address] [place] [address] [place] [address] Comptometer Operator: Belia Manjarrez MD MCV (RBC) [Entitic vol] 89.9 fL Normal 82.6-102.9 [facility] Comment on above: Performed By: #### A DAU9S #### [facility] [address] [place], [place] [id number] Comptometer Operator: Trey Carroll MD #### CP, CDP, MG #### [facility] [address] [place] [address] Comptometer Operator: Belia Manjarrez MD Monocytes (Bld) [#/Vol] 0.67 10*3/uL Normal 0.10-1.20 [facility] Comment on above: Performed By: #### A DAU9S #### [facility] [address] [place] [address] Comptometer Operator: Trey Carroll MD #### CP, CDP, MG #### [facility] [address] [place] [address] Comptometer Operator: Belia Manjarrez MD Monocytes/100 WBC (Bld) 7 % Normal 3-12 [facility] Comment on above: Performed By: #### A DAU9S #### [facility] [address] [place], [place] [id number] Comptometer Operator: Trey Carroll MD #### CP, CDP, MG #### [facility] [address] [place] [address] Comptometer Operator: Belia Manjarrez MD Neutrophil (Seg) 57 % Normal 36-65 [facility] Comment on above: Performed By: #### A DAU9S #### [facility] [address] [place] [address] Comptometer Operator: Trey Carroll MD #### CP, CDP, MG #### [facility] [address] [place], [place] [address] Comptometer Operator: Belia Manjarrez MD NRBC Automated 0.0 per 100 WBC Normal 0.0 [facility] Comment on above: Performed By: #### A DAU9S #### [facility] [address] [place] [address] Comptometer Operator: Trey Carroll MD #### CP, CDP, MG #### [facility] [address] [place] [address] Comptometer Operator: Belia Manjarrez MD Platelet mean volume (Bld) [Entitic vol] 9.6 fL Normal 8.1-13.5 [facility] Comment on above: Performed By: #### A DAU9S #### [facility] [address] [place] [address] Comptometer Operator: Trey Carroll MD #### CP, CDP, MG #### [facility] [address] [place], [place] [id number] Comptometer Operator: Belia Manjarrez MD Platelets (Bld) [#/Vol] 314 10*3/uL Normal 138-453 [facility] Comment on above: Performed By: #### A DAU9S #### [facility] [address] [place] [address] Comptometer Operator: Trey Carroll MD #### CP, CDP, MG #### [facility] [address] [place] [address] Comptometer Operator: Belia Manjarrez MD RBC (Bld) [#/Vol] 4.56 10*6/uL Normal 3.95-5.11 [facility] Comment on above: Performed By: #### A DAU9S #### [facility] [address] [place] [address] Comptometer Operator: Trey Carroll MD #### CP, CDP, MG #### [facility] [address] [place], [place] [id number] Comptometer Operator: Belia Manjarrez MD WBC (Bld) [#/Vol] 10.3 10*3/uL Normal 3.5-11.3 [facility] Comment on above: Performed By: #### A DAU9S #### [facility] [address] [place] [address] Comptometer Operator: Trey Carroll MD #### CP, CDP, MG #### [facility] [address] [place] [address] Comptometer Operator: Belia Manjarrez MD Comp Metabolic Profon 2023 Albumin [Mass/Vol] 4.4 g/dL Normal 3.5-5.2 [facility] Comment on above: Performed By: #### A DAU9S #### [facility] [address] [place] [address] Comptometer Operator: rTey Carroll MD #### CP, CDP, MG #### [facility] [address] [place] [address] Comptometer Operator: Belia Manjarrez MD Albumin/Glob Ratio 1.5 Normal 1.0-2.5 [facility] Comment on above: Performed By: #### A DAU9S #### [facility] [address] [place], [place] [id number] Comptometer Operator: Trey Carroll MD #### CP, CDP, MG #### [facility] [address] [place] [address] Comptometer Operator: Belia Manjarrez MD Alkaline Phos 108 U/L High 35-104 [facility] Comment on above: Performed By: #### A DAU9S #### [facility] [address] [place] [address] Comptometer Operator: Trey Carroll MD #### CP, CDP, MG #### [facility] [address] [place] [address] Comptometer Operator: Belia Manjarrez MD ALT [Catalytic activity/Vol] 46 U/L High 5-33 [facility] Comment on above: Performed By: #### A DAU9S #### [facility] [address] [place], [place] [id number] Comptometer Operator: Trey Carroll MD #### CP, CDP, MG #### [facility] [address] [place] [address] Comptometer Operator: Belia Manjarrez MD Anion gap [Moles/Vol] 10 mmol/L Normal 9-17 [facility] Comment on above: Performed By: #### A DAU9S #### [facility] [address] [place] [address] Comptometer Operator: Trey Carroll MD #### CP, CDP, MG #### [facility] [address] [place] [address] Comptometer Operator: Belia Manjarrez MD AST [Catalytic activity/Vol] 32 U/L High <32 [facility] Comment on above: Performed By: #### A DAU9S #### [facility] [address] [place] [address] Comptometer Operator: Trey Carroll MD #### CP, CDP, MG #### [facility] [address] [place] [address] Comptometer Operator: Belia Manjarrez MD Bilirubin [Mass/Vol] 0.4 mg/dL Normal 0.3-1.2 [facility] Comment on above: Performed By: #### A DAU9S #### [facility] [address] [place] [address] Comptometer Operator: Trey Carroll MD #### CP, CDP, MG #### [facility] [address] [place] [address] Comptometer Operator: Belia Manjarrez MD BUN/CRE Ratio 12 Normal 9-20 [facility] Comment on above: Performed By: #### A DAU9S #### [facility] [address] [place] [address] Comptometer Operator: Trey Carroll MD #### CP, CDP, MG #### [facility] [address] [place] [address] Comptometer Operator: Belia Manjarrez MD Calcium [Mass/Vol] 9.1 mg/dL Normal 8.6-10.4 [facility] Comment on above: Performed By: #### A DAU9S #### [facility] [address] [place] [address] Comptometer Operator: Trey Carroll MD #### CP, CDP, MG #### [facility] [address] [place] [address] Comptometer Operator: Belia Manjarrez MD Chloride [Moles/Vol] 106 mmol/L Normal 98-107 [facility] Comment on above: Performed By: #### A DAU9S #### [facility] [address] [place] [address] Comptometer Operator: Trey Carroll MD #### HEATHER CDP, MG #### [facility] [address] [place] [address] Comptometer Operator: Belia Manjarrez MD CO2 [Moles/Vol] 26 mmol/L Normal 20-31 [facility] Comment on above: Performed By: #### A DAU9S #### [facility] [address] [place] [address] Comptometer Operator: Trey Carroll MD #### HEATHER CDP, MG #### [facility] [address] [place] [address] Comptometer Operator: Belia Manjarrez MD Creatinine [Mass/Vol] 0.5 mg/dL Normal 0.5-0.9 [facility] Comment on above: Performed By: #### A DAU9S #### [facility] [address] [place] [address] Comptometer Operator: Trey Carroll MD #### HEATHER, CDP, MG #### [facility] [address] [place] [address] Comptometer Operator: Belia Manjarrez MD GFR/1.73 sq M.predicted among non-blacks MDRD (S/P/Bld) [Vol rate/Area] mL/min/{1.73_m2} Normal >60 [facility] Comment on above: Result Comment: These results are not intended for use in patients <18 years of age. eGFR results are calculated without a race factor using the 2020 CKD-EPI equation. Careful clinical correlation is recommended, particularly when comparing to results calculated using previous equations. The CKD-EPI equation is less accurate in patients with extremes of muscle mass, extra-renal metabolism of creatine, excessive creatine ingestion, or following therapy that affects renal tubular secretion. Performed By: #### A DAU9S #### [facility] [address] [place] [address] Comptometer Operator: Trey Carroll MD #### CP, CDP, MG #### [facility] [address] [place] [address] Comptometer Operator: Belia Manjarrez MD Glucose [Mass/Vol] 90 mg/dL Normal 70-99 [facility] Comment on above: Performed By: #### A DAU9S #### [facility] [address] [address] Comptometer Operator: Trey Carroll MD #### CP, CDP, MG #### [facility] [address] [place] [address] Comptometer Operator: Belia Manjarrez MD Potassium [Moles/Vol] 4.2 mmol/L Normal 3.7-5.3 [facility] Comment on above: Performed By: #### A DAU9S #### [facility] [address] [place] [address] Comptometer Operator: Trey Carroll MD #### CP, CDP, MG #### [facility] [address] [place] [address] Comptometer Operator: Belia Manjarrez MD Protein [Mass/Vol] 7.4 g/dL Normal 6.4-8.3 [facility] Comment on above: Performed By: #### A DAU9S #### [facility] [address] [place] [address] Comptometer Operator: Trey Carroll MD #### CP, CDP, MG #### [facility] [address] [place] [address] [place] [address] Comptometer Operator: Belia Manjarrez MD Sodium [Moles/Vol] 142 mmol/L Normal 135-144 [facility] Comment on above: Performed By: #### A DAU9S #### [facility] [address] [place] [address] Comptometer Operator: Trey Carroll MD #### CP, CDP, MG #### [facility] [address] [place] [address] [address] [place], [place] [id number] Comptometer Operator: Belia Manjarrez MD Urea nitrogen [Mass/Vol] 6 mg/dL Normal 6-20 [facility] Comment on above: Performed By: #### A DAU9S #### [facility] [address] [place] [address] Comptometer Operator: Trey Carroll MD #### CP, CDP, MG #### [address] [place], [place] [id number] Comptometer Operator: Belia Manjarrez MD Drug Scr, Abuse, Uron 2023 Amphetamine(s),Ur Negative Normal NEG [facility] Comment on above: Result Comment: (Positive cutoff 1000 ng/mL) Performed By: #### D AU #### [address] [place] [address] Comptometer Operator: Belia Manjarrez MD Barbiturate(s),Ur Negative Normal NEG [facility] Comment on above: Result Comment: (Positive cutoff 200 ng/mL) Performed By: #### D AU #### [address] [place] [address] Comptometer Operator: Belia Manjarrez MD Benzodiazepine(s) Negative Normal NEG [facility] Comment on above: Result Comment: (Positive cutoff 200 ng/mL) Performed By: #### D AU #### [facility] [address] [place] [address] [address] [place], [place] [id number] Comptometer Operator: Belia Manjarrez MD Buprenorphrine, Ur Negative Normal [facility] Comment on above: Result Comment: (Positive cutoff 5 ng/ml) Performed By: #### D AU #### [facility] [address] [place] [address] [address] [place], [place] [id number] Comptometer Operator: Belia Manjarrez MD Cannabinoid(s),Ur Negative Normal [facility] Comment on above: Result Comment: (Positive cutoff 50 ng/mL) Performed By: #### D AU #### [facility] [address] [place] [address] [place] [address] Comptometer Operator: Belia Manjarrez MD Cocaine Metabolite Negative [facility] Comment on above: Result Comment: (Positive cutoff 300 ng/mL) Performed By: #### D AU #### [address] [place] [address] Comptometer Operator: Belia Manjarrez MD Fentanyl, Urine Negative Normal [facility] Comment on above: Result Comment: (Positive cutoff 5 ng/ml) Performed By: #### D AU #### [address] [place], [place] [id number] Comptometer Operator: Belia Manjarrez MD Interpretive Info Assay provides medical screening only. The absence of expected drug(s) and/or Normal [facility] Comment on above: Result Comment: meta bolite(s) may indicate diluted or adulterated urine, limitations of testing or timing of collection. Testing for legal purposes should be confirmed by another method. To request confirmation of test result, please call the lab within 7 days of sample submission. Performed By: #### D AU #### [address] [place], [place] [id number] Comptometer Operator: Belia Manjarrez MD Methadone Ql (U) Negative Normal [facility] Comment on above: Result Comment: (Positive cutoff 300 ng/mL) Performed By: #### D AU #### [facility] [address] [place] [address] [address] [place], [place] [id number] Comptometer Operator: Belia Manjarrez MD Opiate(s), Ur Negative Normal NEG [facility] Comment on above: Result Comment: (Positive cutoff 300 ng/mL) Performed By: #### D AU #### [address] [place], [place] [id number] Comptometer Operator: Belia Manjarrez MD Oxycodone, Urine Negative Normal NEG [facility] Comment on above: Result Comment: (Positive cutoff 100 ng/mL) Performed By: #### D AU #### [address] [place], [place] [id number] Comptometer Operator: Belia Manjarrez MD Phencyclidine, Ur Negative Normal NEG [facility] Comment on above: Result Comment: (Positive cutoff 25 ng/mL) Performed By: #### D AU #### [address] [place], [place] [id number] Comptometer Operator: Belia Manjarrez MD Magnesiumon 06-12-2024 Magnesium [Mass/Vol] 2.2 mg/dL Normal 1.6-2.6 [facility] Comment on above: Performed By: #### A [id number] #### [facility] [address] [place] [address] Comptometer Operator: Trey Carroll MD #### CP, CDP, MG #### [address] [place] [address] Comptometer Operator: Belia Manjarrez MD XR knee LT 4V*on 09-13-2023 XR knee LT 4V* [facility] [employer] Other XR knee LT 4V* [facility] [employer] Other XR knee LT 4V* [address] [place] [address] [employer] Other XR knee LT 4V* [place] [address] No rt [employer] Other XR knee LT 4V* XRay Report [employer] Other XR knee LT 4V* Signed [employer] Other XR knee LT 4V* Patient: Josephine Herndon MR#: [id number] [employer] Other XR knee LT 4V* 8 [employer] Other XR knee LT 4V* : 1980 Acct:[id number] [employer] Other XR knee LT 4V* Age/Sex: 43 / F ADM Date: 09/13/23 [employer] Other XR knee LT 4V* Loc: XDUCLY Room: Type: REG CLI [employer] Other XR knee LT 4V* Attending Dr: Shae Love APRN [employer] Other XR knee LT 4V* Copies to: Shae Love APRN [employer] Other XR knee LT 4V* Ordering Provider: Shae Love APRN [employer] Other XR knee LT 4V* Date of Service: 09/13/23 [employer] Other XR knee LT 4V* XR/XR knee LT 4V*: Injury [employer] Other XR knee LT 4V* XR knee LT 4V* 09/13/2023 10:51 AM [employer] Other XR knee LT 4V* SIGNS AND SYMPTOMS: Twisting injury to left knee with pain and swelling medially [employer] Other XR knee LT 4V* PROTOCOL: Frontal, lateral, and oblique radiographs of the left knee [employer] Other XR knee LT 4V* COMPARISON: None [employer] Other XR knee LT 4V* FINDINGS: [employer] Other XR knee LT 4V* The joint spaces are preserved. There is a moderate joint effusion. There is no evidence of fracture [employer] Other XR knee LT 4V* or dislocation. No significant soft tissue swelling. [employer] Other XR knee LT 4V* XR/XR knee LT 4V* [employer] Other XR knee LT 4V* IMPRESSION: [employer] Other XR knee LT 4V* No fracture. [employer] Other XR knee LT 4V* There is a moderate joint effusion. [employer] Other XR knee LT 4V* Impression dictated by: Donato Rockwell M.D.09/13/2023 11:19 AM [employer] Other XR knee LT 4V* Dictation Location: [place] [address] [employer] Other XR knee LT 4V* Transcribed By: NICKY 09/13/23 [facility] [employer] Other XR knee LT 4V* Dictated By: Donato Rockwell II, MD 09/13/23 [facility] [employer] Other XR knee LT 4V* Signed By: [employer] Other XR knee LT 4V* 09/13/23 [facility] [employer] Other XR knee LT 4V* [facility] [place] [address] [place] [address] XRay Report Signed Patient: Josephine Herndon MR#: [id number] : 1980 Acct:[id number] Age/Sex: 43 / F ADM Date: 09/13/23 Loc: XDUCLY Room: Type: [facility] Attending Dr: Shae Love APRN [...] Donato Rockwell M.D.09/13/2023 11:19 AM Dictation Location: [place] [address] Transcribed By: [facility] 09/13/23 111 Dictated By: Donato Rockwell II, MD 09/13/23 1118 Signed By: 09/13/23 [address] [facility] [address] CHEST WO CONon 10-10-2022 [...] AMANDA CASSIDY Date: 2022-10-10 10:[address] [facility] Covid-19 PCR (CVDTBH)on SARS-CoV-2 (COVID-19) RNA RAYMOND+probe Ql (Unsp spec) Not detected Normal NOT DETECTED [facility] Comment on above: Result Comment: When [...] for this test is supported by the Computer Systems Design Analyst of Health and Human Service's declaration that [...] longer be used). Performed By: #### C [facility] #### [facility] [address] [place] [address] CHEST WO CONon [...] by: BELIA HENDRICKS Date: 2022-09-01 09:55 Normal [facility] MAMM SCREEN 3D GUSTAVO CADon 09-01-2022 MAMM SCREEN 3D GUSTAVO CAD Patient: JOSEPHINE HERNDON Exam Date: 09/01/2022 : 1980 Gender:F Ordering : DR ANGELICA DE . Admission #: [id number] Family : Order #: [id number] CLICK HERE TO VIEW EXAM RADIOLOGY REPORT [...] bladder cancer at age 59. LOCATION: [facility] BREAST COMPOSITION: Scattered areas fibroglandular density. [...] Hendricks MD on 09/01/2022 at 09:[address] [facility] PAP ACOG PANEL 2: 21 to 29on 06-02-2022 . . Normal [facility] Comment on above: Result Comment: Perf ormed at: WB Performed By: #### [id number] #### [facility] [address] [place] [address] Dr. Les Bryan Age Gdln ACOG Testing 30-65 [facility] Comment on above: Performed By: #### [id number] #### [facility] [address] [place] [address] Dr. Les Bryan DIAGNOSIS: Comment [facility] Comment on above: Result Comment: NEGA TIVE FOR INTRAEPITHELIAL LESION OR MALIGNANCY. Performed at: WB Performed By: #### [id number] #### [facility] [address] [place] [address] Dr. Les Bryan HPV Aptima Negative Normal [facility] Comment on above: Result Comment: This nucleic acid amplification test detects fourteen high-risk HPV types (16,18,31,33,35,39,45,51,52,56,58,59,66,68) without differentiation. Performed at: =G Performed By: #### [id number] #### [facility] [address] [place] [address] Dr. Les Bryan Methodology: Comment [facility] Comment on above: Result Comment: This liquid based ThinPrep(R) pap test was screened with the use of an image guided system. Performed at: WB Performed By: #### [id number] #### [facility] [address] [place] [address] Dr. Les Bryan Note: Comment [facility] Comment on above: Result Comment: The Pap smear is a screening test designed to aid in the detection of premalignant and malignant conditions of the uterine cervix. It is not a diagnostic procedure and should not be used as the sole means of detecting cervical cancer. Both false-positive and false-negative reports do occur. . Performed at: WB Performed By: #### [id number] #### [facility] [address] [place] [address] Dr. Les Bryan Performed by: Comment Normal [facility] Comment on above: Result Comment: Bella Cuevas, Financial Services Technician (ASCP) Performed at: WB Performed By: #### [id number] #### [facility] [address] [place] [address] [address] Les Bryan Specimen adequacy: Comment Normal [facility] Comment on above: Result Comment: Sati sfactory for evaluation. Endocervical and/or squamous metaplastic cells (endocervical component) are present. Performed at: WB Performed By: #### [id number] #### [facility] [address] [place] [address] [address] Les Bryan General Surgery Office/Clini c [...] Primary malignant neoplasm of bladder: Father. Normal [facility] Comment on above: Result Comment: Elec tronically Signed By: YOLY AKBAR, Jl Nieves\.br\Date and Time Signed: 05/14/22 18:35 EDT Ambulatory [...] longer receiving treatment for. Migraine Psoriasis Normal [facility] General Surgery Office/Clini c Noteon 05-12-2022 General [...] Primary malignant neoplasm of bladder: Father. Normal [facility] Comment on above: Result Comment: Elec tronically Signed By: YOLY KABAR, Jl Nieves\.br\Date and Time Signed: 05/12/22 16:00 EDT Pathology Noteon 05-08-2022 Pathology Note [id number] Normal [facility] Ambulatory Visit Summaryon 0 05-03-2022 Ambulatory Visit Summary YANICKJOSEPHINE HERNANDEZ Herbert :1980 Visit Date:05/03/2022 Ambulatory Visit Instructions Your [...] With: Jl FREDERICK MD Where: General Surgery Nil/Said [facility] Ambulatory Visit Summaryon 0 04-21-2022 Ambulatory [...] With: Jl FREDERICK MD Where: General Surgery [facility] HEPATITIS PANEL, ACUTEon HBsAg Screen Negative Normal Negative [facility] Comment on above: Performed By: #### H EPACUT #### [facility] [address] [place] [address] Dr. Les Bryan HCV AB 0.2 s/co ratio Normal 0.0-0.9 [facility] Comment on above: Performed By: #### H EPACUT #### [facility] [address] [place] [address] Dr. Les Bryan Hep A Ab, IgM Negative Normal Negative [facility] Comment on above: Performed By: #### H EPACUT #### [facility] [address] [place] [address] Dr. Les Bryan Hep B Core Ab, IgM Negative Normal Negative [facility] Comment on above: Performed By: #### H EPACUT #### [facility] [address] [place] [place] [address] Dr. Les Bryan Interpretation: Comment Normal [facility] Comment on above: Result Comment: Nega tive Not infected with HCV, unless recent infection is suspected or other evidence exists to indicate HCV infection. Performed By: #### H EPACUT #### [facility] [address] [place] [address] Dr. Les Bryan INSULINon 04-18-2022 Insulin 18.8 uIU/mL Normal 2.6-24.9 [facility] Comment on above: Performed By: #### I NSULIN #### [facility] [address] [place] [address] Dr. Les Bryan BILIRUBIN CONJUGATED (DIRECT )on 04-17-2022 BILI, CONJUGATED 0.1 mg/dL Normal 0.0-0.2 [facility] Comment on above: Performed By: #### RICARDO STEVENSON #### [facility] [address] [place] [address] Dr. Les Bryan BNPon 04-17-2022 Natriuretic peptide B (Bld) [Mass/Vol] 12.0 pg/mL Normal <=450.0 [facility] Comment on above: Performed By: #### RICARDO STEVENSON #### [facility] [address] [place] [address] Dr. Les Bryan CBC AUTO DIFFon 04-17-2022 BASO # 0.1 103/ul Normal 0.0-0.1 [facility] Comment on above: Performed By: #### C BC #### [facility] [address] [place] [address] [address] Les Bryan Basophils/100 WBC (Bld) 0.6 % Normal 0.2-2.0 [facility] Comment on above: Performed By: #### C BC #### [facility] [address] [place] [address] [address] Les Bryan EO # 0.3 103/ul Normal 0.0-0.7 [facility] Comment on above: Performed By: #### C BC #### [facility] [address] [place] [address] [address] Les Bryan Eosinophils/100 WBC (Bld) 3.0 % Normal 0.9-7.0 [facility] Comment on above: Performed By: #### C BC #### [facility] [address] [place] [address] Dr. Les Bryan Erythrocyte distribution width (RBC) [Ratio] 13.2 % Normal 11.0-15.0 [facility] Comment on above: Performed By: #### C BC #### [facility] [address] [place] [address] Dr. Les Bryan Hematocrit (Bld) [Volume fraction] 40.8 % Normal 36.0-48.0 [facility] Comment on above: Performed By: #### C BC #### [facility] [address] [place] [address] Dr. Les Bryan Hemoglobin (Bld) [Mass/Vol] 13.4 g/dL Normal 12.0-16.0 [facility] Comment on above: Performed By: #### C BC #### [facility] [address] [place] [address] Dr. Les Bryan IG # 0.07 10e3/ul Critically high 0.00-0.03 [facility] Comment on above: Performed By: #### C BC #### [facility] [address] [place] [address] [address] Les Bryan IG % 0.8 % Critically high 0.0-0.5 [facility] Comment on above: Performed By: #### C BC #### [facility] [address] [place] [address] Dr. Les Bryan LYMPH # 2.8 103/ul Normal 1.2-3.8 [facility] Comment on above: Performed By: #### C BC #### [facility] [address] [place] [address] Dr. Les Bryan Lymphocytes/100 WBC (Bld) 31.7 % Normal 20.5-60.0 [facility] Comment on above: Performed By: #### C BC #### [facility] [address] [place] [address] Dr. Les Bryan MANUAL DIFF REQ NO Normal [facility] Comment on above: Performed By: #### C BC #### [facility] [address] [place] [address] Dr. Les Bryan MCH (RBC) [Entitic mass] 29.5 pg Normal 26.7-34.0 [facility] Comment on above: Performed By: #### C BC #### [facility] [address] [place] [address] Dr. Les Bryan MCHC (RBC) [Mass/Vol] 32.8 g/dL Normal 29.9-35.2 [facility] Comment on above: Performed By: #### C BC #### [facility] [address] [place] [address] Dr. Les Bryan MCV (RBC) [Entitic vol] 89.9 fL Normal 81.0-99.0 [facility] Comment on above: Performed By: #### C BC #### [facility] [address] [place] [address] Dr. Les Bryan MONO # 0.4 103/ul Normal 0.3-0.8 [facility] Comment on above: Performed By: #### C BC #### [facility] [address] [place] [address] Dr. Les Bryan Monocytes/100 WBC (Bld) 4.7 % Normal 1.7-12.0 [facility] Comment on above: Performed By: #### C BC #### [facility] [address] [address] [address] Les Bryan NEUT # 5.3 103/ul Normal 1.4-6.5 [facility] Comment on above: Performed By: #### C BC #### [facility] [address] [address] [address] Les Bryan Neutrophils/100 WBC (Bld) 59.2 % Normal 43.0-75.0 [facility] Comment on above: Performed By: #### C BC #### [facility] [address] [address] [address] Les Bryan Platelet mean volume (Bld) [Entitic vol] 9.1 fL Critically low 9.5-13.5 [facility] Comment on above: Performed By: #### C BC #### [facility] [address] [address] [address] Les Bryan PLT 309 103/ul Normal 150-450 [facility] Comment on above: Performed By: #### C BC #### [facility] [address] [place] [address] [address] Les Bryan RBC 4.54 106/ul Normal 4.20-5.40 [facility] Comment on above: Performed By: #### C BC #### [facility] [address] [place] [address] [address] Les Bryan WBC 8.9 103/ul Normal 4.0-11.[address] [facility] Comment on above: Performed By: #### C BC #### [facility] [address] [place] [address] [address] Les Bryan FREE T3on 04-17-2022 FREE T3 2.02 pg/mlL Critically low 2.18-3.98 [facility] Comment on above: Performed By: #### RICARDO STEVENSON #### [facility] [address] [place] [address] [address] Les Bryan FREE THYROXINE INDEX T7on FTI 2.07 Normal 1.30-4.50 [facility] Comment on above: Performed By: #### RICARDO STEVENSON #### [facility] [address] [address] [address] Les Bryan T3U 30.0 % Normal 30.0-39.0 [facility] Comment on above: Performed By: #### RICARDO STEVENSON #### [facility] [address] [place] [address] [address] eLs Bryan T4 [Mass/Vol] 6.90 ug/dL Normal 4.80-13.90 [facility] Comment on above: Performed By: #### RICARDO STEVENSON #### [facility] [address] [place] [address] [address] Les Bryan GLYCOHEMOGLOBIN A1Con 2021 ADA RECOMMENDATION SEE BELOW Normal [facility] Comment on above: Result Comment: ADA RECOMMENDED LIMIT 4.0 - 6.0 ADA THERAPEUTIC TARGET < 7.0 ACTION SUGGESTED > 7.0 Performed By: #### A 1C #### [facility] [address] [place] [address] Dr. Les Bryan Glucose [Mass/Vol] 120 mg/dL Normal [facility] Comment on above: Performed By: #### A 1C #### [facility] [address] [address] [address] Les Bryan HbA1c (Bld) [Mass fraction] 5.8 % Normal 4.5-6.2 [facility] Comment on above: Performed By: #### A 1C #### [facility] [address] [address] [address] Les Bryan IRONon 04-17-2022 Iron [Mass/Vol] 66.0 ug/dL Normal 50.0-170.0 [facility] Comment on above: Performed By: #### RICARDO STEVENSON #### [facility] [address] [place] [address] Dr. Les Bryan LIPID PROFILEon 04-17-2022 CHOL-HDL RATIO NORM SEE BELOW Normal [facility] Comment on above: Result Comment: 3.3 - 4.4 LOW RISK 4.4 - 7.1 AVERAGE RISK 7.1 - 11.0 MODERATE RISK >11.0 HIGH RISK Performed By: #### RICARDO STEVENSON #### [facility] [address] [place] [address] Dr. Les Bryan Cholesterol [Mass/Vol] 244 mg/dL Critically high <=200 [facility] Comment on above: Performed By: #### BARBER STEVENSONRO #### [facility] [address] [place] [address] Dr. Les Bryan Cholesterol in HDL [Mass/Vol] 55 mg/dL Normal 40-60 [facility] Comment on above: Performed By: #### BARBER STEVENSONRO #### [facility] [address] [place] [address] Dr. Les Bryan Cholesterol in LDL [Mass/Vol] 155.4 mg/dL Normal [facility] Comment on above: Performed By: #### BARBER STEVENSONRO #### [facility] [address] [place] [address] Dr. Les Bryan Cholesterol.total/Ch olesterol in HDL [Mass ratio] 4.4 {ratio} Normal [facility] Comment on above: Performed By: #### BARBER STEVENSONRO #### [facility] [address] [place] [address] Dr. Les Bryan HDL NORMAL > or = 60 mg/dl - LOW CARDIOVASCULAR RISK <40 mg/dl - HIGH CARDIOVASCULAR RISK Normal [facility] Comment on above: Performed By: #### BARBER STEVENSONRO #### [facility] [address] [place] [address] Dr. Les Bryan LDL CALC NORMAL SEE BELOW Normal [facility] Comment on above: Result Comment: <100 mg/dl OPTIMAL 100 - 129 mg/dl NEAR OR ABOVE OPTIMAL 130 - 159 mg/dl BORDERLINE HIGH 160 - 189 mg/dl HIGH >190 mg/dl VERY HIGH Performed By: #### BARBER STEVENSONRO #### [facility] [address] [place] [address] Dr. Les Bryan Triglyceride [Mass/Vol] 168 mg/dL Critically high <=[address] [facility] Comment on above: Performed By: #### BARBER STEVENSONRO #### [facility] [address] [place] [address] Dr. Les Bryan VLDL CALC 33.6 mg/dL Normal [facility] Comment on above: Performed By: #### BARBER STEVENSONRO #### [facility] [address] [place] [address] Dr. Les Bryan PROF 14(COMP METB)on 022 Albumin [Mass/Vol] 3.9 g/dL Normal 3.4-5.0 [facility] Comment on above: Performed By: #### BARBER STEVENSONRO #### [facility] [address] [place] [address] Dr. Les Bryan Albumin/Globulin [Mass ratio] 0.9 {ratio} Normal [facility] Comment on above: Performed By: #### BARBER STEVENSONRO #### [facility] [address] [place] [address] Dr. Les Bryan ALP [Catalytic activity/Vol] 137 U/L Critically high 46-116 [facility] Comment on above: Performed By: #### BARBER STEVENSONRO #### [facility] [address] [place] [address] Dr. Les Bryan ALT [Catalytic activity/Vol] 104 U/L Critically high 14-59 [facility] Comment on above: Performed By: #### BARBER STEVENSONRO #### [facility] [address] [place] [address] Dr. Les Bryan Anion gap [Moles/Vol] 13.3 mmol/L Normal [facility] Comment on above: Performed By: #### BARBER STEVENSONRO #### [facility] [address] [place] [address] Dr. Les Bryan AST [Catalytic activity/Vol] 59 U/L Critically high 15-37 [facility] Comment on above: Performed By: #### BARBER STEVENSONRO #### [facility] [address] [place] [address] Dr. Les Bryan Bilirubin [Mass/Vol] 0.3 mg/dL Normal 0.2-1.0 [facility] Comment on above: Performed By: #### BARBER STEVENSONRO #### [facility] [address] [place] [address] Dr. Les Bryan Calcium [Mass/Vol] 9.0 mg/dL Normal 8.5-10.1 [facility] Comment on above: Performed By: #### BARBER STEVENSONRO #### [facility] [address] [place] [address] Dr. Les Bryan Chloride [Moles/Vol] 104 mmol/L Normal 98-107 [facility] Comment on above: Performed By: #### BARBER STEVENSONRO #### [facility] [address] [place] [address] Dr. Les Bryan CO2 [Moles/Vol] 25.0 mmol/L Normal 21.0-32.0 [facility] Comment on above: Performed By: #### BARBER STEVENSONRO #### [facility] [address] [place] [address] Dr. Les Bryan Creatinine [Mass/Vol] 0.70 mg/dL Normal 0.55-1.02 [facility] Comment on above: Performed By: #### BARBER STEVENSONRO #### [facility] [address] [place] [address] Dr. Les Bryan EGFR-AF CZECH 111 mL/min/1.73m2 Normal >=60 [facility] Comment on above: Performed By: #### Andi GUY UMICRO #### [facility] [address] [place] [address] Dr. Les Bryan EGFR-NON AF CZECH 92 mL/min/1.73m2 Normal >=60 [facility] Comment on above: Performed By: #### Andi GUY UMICRO #### [facility] [address] [place] [address] Dr. Les Bryan Globulin (S) [Mass/Vol] 4.3 g/dL Normal [facility] Comment on above: Performed By: #### BARBER STEVENSONRO #### [facility] [address] [place] [address] Dr. Les Bryan Glucose [Mass/Vol] 104 mg/dL Normal 74-106 [facility] Comment on above: Performed By: #### BARBER STEVENSONRO #### [facility] [address] [place] [address] Dr. Les Bryan Potassium [Moles/Vol] 4.3 mmol/L Normal 3.5-5.1 [facility] Comment on above: Performed By: #### SABINE STEVENSONICRO #### [facility] [address] [place] [address] Dr. Les Bryan Protein [Mass/Vol] 8.2 g/dL Normal 6.4-8.[address] [facility] Comment on above: Performed By: #### BARBER STEVENSONRO #### [facility] [address] [place] [address] Dr. Les Bryan Sodium [Moles/Vol] 138 mmol/L Normal 136-[address] [facility] Comment on above: Performed By: #### BARBER STEVENSONRO #### [facility] [address] [place] [address] Dr. Les Bryan Urea nitrogen [Mass/Vol] 10.0 mg/dL Normal 7.0-18.0 [facility] Comment on above: Performed By: #### BARBER STEVENSONRO #### [facility] [address] [place] [address] Dr. Les Bryan Urea nitrogen/Creatinine [Mass ratio] 14.3 mg/mg Normal [facility] Comment on above: Performed By: #### BARBER STEVENSONRO #### [facility] [address] [place] [address] Dr. Les Bryan TSHon 04-17-2022 TSH 4.067 uIU/mL Critically high 0.358-3.740 [facility] Comment on above: Performed By: #### T SH, DBIL, BNP, FT3, T7, LIPID, CMP #### [facility] [address] [place] [address] Dr. Les Bryan INSULINon 04-06-2022 Insulin 34.6 uIU/mL Critically high 2.6-24.9 [facility] Comment on above: Performed By: #### RICARDO STEVENSON #### [facility] [address] [place] [address] Dr. Les Bryan Physician Referralon 022 Physician Referral [id number] Normal [facility] T4 LABCORPon 04-06-2022 T4 [Mass/Vol] 6.7 ug/dL Normal 4.5-12.0 [facility] Comment on above: Performed By: #### [id number] #### [facility] [address] [place] [place] [address] Dr. Les Bryan BNPon 04-05-2022 Natriuretic peptide B (Bld) [Mass/Vol] 18.0 pg/mL Normal <=450.0 [facility] Comment on above: Performed By: #### RICARDO STEVENSON #### [facility] [address] [place] [address] Dr. Les Bryan CBC AUTO DIFFon 04-05-2022 BASO # 0.1 103/ul Normal 0.0-0.1 [facility] Comment on above: Performed By: #### [id number] #### [facility] [address] [place] [address] Dr. Les Bryan Basophils/100 WBC (Bld) 0.6 % Normal 0.2-2.[address] [facility] Comment on above: Performed By: #### [id number] #### [facility] [address] [place] [place] [address] Dr. Les Bryan EO # 0.2 103/ul Normal 0.0-0.7 [facility] Comment on above: Performed By: #### 4 [id number] #### [facility] [address] [place] [address] Dr. Les Bryan Eosinophils/100 WBC (Bld) 1.9 % Normal 0.9-7.0 [facility] Comment on above: Performed By: #### 4 [id number] #### [facility] [address] [place] [place] [address] Dr. Les Bryan Erythrocyte distribution width (RBC) [Ratio] 13.3 % Normal 11.0-15.0 [facility] Comment on above: Performed By: #### 4 [id number] #### [facility] [address] [place] [address] Dr. Les Bryan Hematocrit (Bld) [Volume fraction] 39.1 % Normal 36.0-48.0 [facility] Comment on above: Performed By: #### 4 [id number] #### [facility] [address] [place] [place] [address] Dr. Les Bryan Hemoglobin (Bld) [Mass/Vol] 13.2 g/dL Normal 12.0-16.0 [facility] Comment on above: Performed By: #### 4 [id number] #### [facility] [address] [place] [place] [address] Dr. Les Bryan IG # 0.08 10e3/ul Critically high 0.00-0.03 [facility] Comment on above: Performed By: #### 4 [id number] #### [facility] [address] [place] [address] Dr. Les Bryan IG % 0.8 % Critically high 0.0-0.5 [facility] Comment on above: Performed By: #### 4 [id number] #### [facility] [address] [place] [address] Dr. Les Bryan LYMPH # 3.0 103/ul Normal 1.2-3.[address] [facility] Comment on above: Performed By: #### 4 [id number] #### [facility] [address] [place] [address] Dr. Les Bryan Lymphocytes/100 WBC (Bld) 31.4 % Normal 20.5-60.0 [facility] Comment on above: Performed By: #### 4 [id number] #### [facility] [address] [place] [place] [address] Dr. Les Bryan MANUAL DIFF REQ NO Normal [facility] Comment on above: Performed By: #### [id number] #### [facility] [address] [place] [address] Dr. Les Bryan MCH (RBC) [Entitic mass] 30.1 pg Normal 26.7-34.[address] [facility] Comment on above: Performed By: #### 4 [id number] #### [facility] [address] [place] [address] Dr. Les Bryan MCHC (RBC) [Mass/Vol] 33.8 g/dL Normal 29.9-35.[address] [facility] Comment on above: Performed By: #### 4 [id number] #### [facility] [address] [place] [address] Dr. Les Bryan MCV (RBC) [Entitic vol] 89.1 fL Normal 81.0-99.0 [facility] Comment on above: Performed By: #### 4 [id number] #### [facility] [address] [place] [address] Dr. Les Bryan MONO # 0.6 103/ul Normal 0.3-0.[address] [facility] Comment on above: Performed By: #### 4 [id number] #### [facility] [address] [place] [address] Dr. Les Bryan Monocytes/100 WBC (Bld) 6.1 % Normal 1.7-12.[address] [facility] Comment on above: Performed By: #### 4 [id number] #### [facility] [address] [place] [place] [address] Dr. Les Bryan NEUT # 5.6 103/ul Normal 1.4-6.[address] [facility] Comment on above: Performed By: #### 4 [id number] #### [facility] [address] [place] [address] Dr. Les Bryan Neutrophils/100 WBC (Bld) 59.2 % Normal 43.0-75.[address] [facility] Comment on above: Performed By: #### 4 [id number] #### [facility] [address] [place] [address] Dr. Les Bryan Platelet mean volume (Bld) [Entitic vol] 9.0 fL Critically low 9.5-13.5 [facility] Comment on above: Performed By: #### 4 [id number] #### [facility] [address] [place] [address] Dr. Les Bryan PLT 286 103/ul Normal 150-[address] [facility] Comment on above: Performed By: #### 4 [id number] #### [facility] [address] [place] [address] Dr. Les Bryan RBC 4.39 106/ul Normal 4.20-5.[address] [facility] Comment on above: Performed By: #### 4 [id number] #### [facility] [address] [place] [address] Dr. Les Bryan WBC 9.5 103/ul Normal 4.0-11.0 [facility] Comment on above: Performed By: #### 4 [id number] #### [facility] [address] [place] [address] Dr. Les Bryan FREE T3on 04-05-2022 FREE T3 2.73 pg/mlL Normal 2.18-3.[address] [facility] Comment on above: Performed By: #### RICARDO STEVENSON #### [facility] [address] [place] [address] Dr. Les Bryan FREE THYROXINE INDEX T7on FTI 2.08 Normal 1.30-4.[address] [facility] Comment on above: Performed By: #### RICARDO STEVENSON #### [facility] [address] [place] [address] Dr. Les Bryan T3U 31.0 % Normal 30.0-39.0 [facility] Comment on above: Performed By: #### RICARDO STEVENSON #### [facility] [address] [place] [address] Dr. Les Bryan T4 [Mass/Vol] 6.70 ug/dL Normal 4.80-13.90 [facility] Comment on above: Result Comment: T4 t esting performed by [facility] Performed By: #### BARBER STEVENSONRO #### [facility] [address] [place] [place] [address] Dr. Les Bryan GLYCOHEMOGLOBIN A1Con 2021 ADA RECOMMENDATION SEE BELOW Normal [facility] Comment on above: Result Comment: ADA RECOMMENDED LIMIT 4.0 - 6.0 ADA THERAPEUTIC TARGET < 7.0 ACTION SUGGESTED > 7.0 Performed By: #### [id number] #### [facility] [address] [place] [address] Dr. Les Bryan Glucose [Mass/Vol] 120 mg/dL Normal [facility] Comment on above: Performed By: #### 4 [id number] #### [facility] [address] [place] [place] [address] Dr. Les Bryan HbA1c (Bld) [Mass fraction] 5.8 % Normal 4.5-6.2 [facility] Comment on above: Performed By: #### 4 [id number] #### [facility] [address] [place] [address] Dr. Les Bryan IRONon 04-05-2022 Iron [Mass/Vol] 105.0 ug/dL Normal 50.0-170.0 [facility] Comment on above: Performed By: #### RICARDO STEVENSON #### [facility] [address] [place] [address] Dr. Les Bryan LIPID PROFILEon 04-05-2022 CHOL-HDL RATIO NORM SEE BELOW Normal [facility] Comment on above: Result Comment: 3.3 - 4.4 LOW RISK 4.4 - 7.1 AVERAGE RISK 7.1 - 11.0 MODERATE RISK >11.0 HIGH RISK Performed By: #### BARBER STEVENSONRO #### [facility] [address] [place] [place] [address] Dr. Les Bryan Cholesterol [Mass/Vol] 217 mg/dL Critically high <=200 [facility] Comment on above: Performed By: #### BARBER STEVENSONRO #### [facility] [address] [place] [place] [address] Dr. Les Bryan Cholesterol in HDL [Mass/Vol] 49 mg/dL Normal 40-60 [facility] Comment on above: Performed By: #### Andi GUY UMICRO #### [facility] [address] [address] [address] Les Bryan Cholesterol in LDL [Mass/Vol] 128.2 mg/dL Normal [facility] Comment on above: Performed By: #### Andi GUY UMICRO #### [facility] [address] [place] [address] Dr. Les Bryan Cholesterol.total/Ch olesterol in HDL [Mass ratio] 4.4 {ratio} Normal [facility] Comment on above: Performed By: #### Andi GUY UMICRO #### [facility] [address] [place] [address] Dr. Les Bryan HDL NORMAL > or = 60 mg/dl - LOW CARDIOVASCULAR RISK <40 mg/dl - HIGH CARDIOVASCULAR RISK Normal [facility] Comment on above: Performed By: #### Andi GUY UMICRO #### [facility] [address] [place] [address] Dr. Les Bryan LDL CALC NORMAL SEE BELOW Normal [facility] Comment on above: Result Comment: <100 mg/dl OPTIMAL 100 - 129 mg/dl NEAR OR ABOVE OPTIMAL 130 - 159 mg/dl BORDERLINE HIGH 160 - 189 mg/dl HIGH >190 mg/dl VERY HIGH Performed By: #### Andi GUY UMICRO #### [facility] [address] [place] [place] [address] Dr. Les Bryan Triglyceride [Mass/Vol] 199 mg/dL Critically high <=[address] [facility] Comment on above: Performed By: #### Andi GUY UMICRO #### [facility] [address] [place] [address] Dr. Les Bryan VLDL CALC 39.8 mg/dL Normal [facility] Comment on above: Performed By: #### Andi GUY UMICRO #### [facility] [address] [place] [address] Dr. Les Bryan PROF 14(COMP METB)on 022 Albumin [Mass/Vol] 3.8 g/dL Normal 3.4-5.0 [facility] Comment on above: Performed By: #### RICARDO STEVENSON #### [facility] [address] [place] [address] Dr. Les Bryan Albumin/Globulin [Mass ratio] 0.9 {ratio} Normal [facility] Comment on above: Performed By: #### RICARDO STEVENSON #### [facility] [address] [place] [address] Dr. Les Bryan ALP [Catalytic activity/Vol] 122 U/L Critically high 46-116 [facility] Comment on above: Performed By: #### RICARDO STEVENSON #### [facility] [address] [place] [address] Dr. Les Bryan ALT [Catalytic activity/Vol] 90 U/L Critically high 14-59 [facility] Comment on above: Performed By: #### RICARDO STEVENSON #### [facility] [address] [place] [address] Dr. Les Bryan Anion gap [Moles/Vol] 13.5 mmol/L Normal [facility] Comment on above: Performed By: #### RICARDO STEVENSON #### [facility] [address] [place] [address] Dr. Les Bryan AST [Catalytic activity/Vol] 63 U/L Critically high 15-37 [facility] Comment on above: Performed By: #### RICARDO STEVENSON #### [facility] [address] [place] [address] Dr. Les Bryan Bilirubin [Mass/Vol] 0.4 mg/dL Normal 0.2-1.0 [facility] Comment on above: Performed By: #### RICARDO STEVENSON #### [facility] [address] [place] [address] Dr. Les Bryan Calcium [Mass/Vol] 9.3 mg/dL Normal 8.5-10.[address] [facility] Comment on above: Performed By: #### RICARDO STEVENSON #### [facility] [address] [address] [address] Les Bryan Chloride [Moles/Vol] 103 mmol/L Normal 98-[address] [facility] Comment on above: Performed By: #### BARBER STEVENSONRO #### [facility] [address] [place] [address] Dr. Les Bryan CO2 [Moles/Vol] 24.6 mmol/L Normal 21.0-32.0 [facility] Comment on above: Performed By: #### Andi GUY UMDARCIERO #### [facility] [address] [place] [address] Dr. Les Bryan Creatinine [Mass/Vol] 0.70 mg/dL Normal 0.55-1.02 [facility] Comment on above: Performed By: #### BARBER STEVENSONRO #### [facility] [address] [place] [address] Dr. Les Bryan EGFR-AF CZECH >60 Normal >=60 [facility] Comment on above: Performed By: #### BARBER STEVENSONRO #### [facility] [address] [place] [address] Dr. Les Bryan EGFR-NON AF CZECH >60 Normal >=60 [facility] Comment on above: Performed By: #### BARBER STEVENSONRO #### [facility] [address] [place] [address] Dr. Les Bryan Globulin (S) [Mass/Vol] 4.1 g/dL Normal [facility] Comment on above: Performed By: #### BARBER STEVENSONRO #### [facility] [address] [place] [address] Dr. Les Bryan Glucose [Mass/Vol] 110 mg/dL Critically high 74-106 [facility] Comment on above: Performed By: #### BARBER STEVENSONRO #### [facility] [address] [place] [address] Dr. Les Bryan Potassium [Moles/Vol] 4.1 mmol/L Normal 3.5-5.[address] [facility] Comment on above: Performed By: #### Andi GUY UMICRO #### [facility] [address] [place] [address] Dr. Les Bryan Protein [Mass/Vol] 7.9 g/dL Normal 6.4-8.2 [facility] Comment on above: Performed By: #### E BROOKS UMICRO #### [facility] [address] [place] [address] Dr. Les Bryan Sodium [Moles/Vol] 137 mmol/L Normal 136-[address] [facility] Comment on above: Performed By: #### E BROOKS UMICRO #### [facility] [address] [place] [address] Dr. Les Bryan Urea nitrogen [Mass/Vol] 9.0 mg/dL Normal 7.0-18.0 [facility] Comment on above: Performed By: #### Andi GUY UMICRO #### [facility] [address] [place] [address] Dr. Les Bryan Urea nitrogen/Creatinine [Mass ratio] 12.9 mg/mg Normal [facility] Comment on above: Performed By: #### Andi GUY UMICRO #### [facility] [address] [place] [address] Dr. Les Bryan TSHon 04-05-2022 TSH 3.572 uIU/mL Normal 0.358-3.740 [facility] Comment on above: Performed By: #### Andi GUY UMICRO #### [facility] [address] [place] [address] Dr. Les Bryan TSH RANGE SEE BELOW Normal [facility] Comment on above: Result Comment: <0.3 4 UIU/ml HYPERTHYROID 0.34-5.60 UIU/ml EUTHYROID >5.60 UIU/ml HYPOTHYROID Performed By: #### Andi GUY UMICRO #### [facility] [address] [place] [address] Dr. Les Bryan XR KUB 1 VIEWon [...] AMANDA CASSIDY Date: 2022-02-27 15:[address] [facility] AMYLASEon 02-25-2022 Amylase [Catalytic activity/Vol] 34 U/L Normal 25-[address] [facility] Comment on above: Performed By: #### [id number] #### [facility] [address] [place] [address] Dr. Les Bryan CBC AUTO DIFFon 02-25-2022 BASO # 0.0 103/ul Normal 0.0-0.1 [facility] Comment on above: Performed By: #### C BC #### [facility] [address] [place] [address] Dr. Les Bryan Basophils/100 WBC (Bld) 0.4 % Normal 0.2-2.0 [facility] Comment on above: Performed By: #### C BC #### [facility] [address] [place] [address] Dr. Les Bryan EO # 0.3 103/ul Normal 0.0-0.7 [facility] Comment on above: Performed By: #### C BC #### [facility] [address] [place] [address] Dr. Les Bryan Eosinophils/100 WBC (Bld) 3.6 % Normal 0.9-7.[address] [facility] Comment on above: Performed By: #### C BC #### [facility] [address] [place] [address] Dr. Les Bryan Erythrocyte distribution width (RBC) [Ratio] 13.1 % Normal 11.0-15.0 [facility] Comment on above: Performed By: #### C BC #### [facility] [address] [address] [address] Les Bryan Hematocrit (Bld) [Volume fraction] 40.6 % Normal 36.0-48.0 [facility] Comment on above: Performed By: #### C BC #### [facility] [address] [address] [address] Les Bryan Hemoglobin (Bld) [Mass/Vol] 13.3 g/dL Normal 12.0-16.0 [facility] Comment on above: Performed By: #### C BC #### [facility] [address] [place] [address] Dr. Les Bryan IG # 0.06 10e3/ul Critically high 0.00-0.03 [facility] Comment on above: Performed By: #### C BC #### [facility] [address] [place] [address] Dr. Les Bryan IG % 0.6 % Critically high 0.0-0.5 [facility] Comment on above: Performed By: #### C BC #### [facility] [address] [place] [address] Dr. Les Bryan LYMPH # 3.6 103/ul Normal 1.2-3.8 [facility] Comment on above: Performed By: #### C BC #### [facility] [address] [place] [address] Dr. Les Bryan Lymphocytes/100 WBC (Bld) 38.2 % Normal 20.5-60.0 [facility] Comment on above: Performed By: #### C BC #### [facility] [address] [place] [address] Dr. Les Bryan MANUAL DIFF REQ NO Normal [facility] Comment on above: Performed By: #### C BC #### [facility] [address] [place] [address] Dr. Les Bryan MCH (RBC) [Entitic mass] 29.7 pg Normal 26.7-34.0 [facility] Comment on above: Performed By: #### C BC #### [facility] [address] [place] [address] Dr. Les Bryan MCHC (RBC) [Mass/Vol] 32.8 g/dL Normal 29.9-35.[address] [facility] Comment on above: Performed By: #### C BC #### [facility] [address] [address] [address] Les Bryan MCV (RBC) [Entitic vol] 90.6 fL Normal 81.0-99.[address] [facility] Comment on above: Performed By: #### C BC #### [facility] [address] [place] [address] Dr. Les Bryan MONO # 0.5 103/ul Normal 0.3-0.[address] [facility] Comment on above: Performed By: #### C BC #### [facility] [address] [place] [address] Dr. Les Bryan Monocytes/100 WBC (Bld) 5.4 % Normal 1.7-12.[address] [facility] Comment on above: Performed By: #### C BC #### [facility] [address] [place] [address] Dr. Les Bryan NEUT # 4.9 103/ul Normal 1.4-6.[address] [facility] Comment on above: Performed By: #### C BC #### [facility] [address] [place] [address] Dr. Les Bryan Neutrophils/100 WBC (Bld) 51.8 % Normal 43.0-75.[address] [facility] Comment on above: Performed By: #### C BC #### [facility] [address] [address] [address] Les Bryan Platelet mean volume (Bld) [Entitic vol] 9.2 fL Critically low 9.5-13.[address] [facility] Comment on above: Performed By: #### C BC #### [facility] [address] [place] [address] Dr. Les Bryan PLT 335 103/ul Normal 150-[address] [facility] Comment on above: Performed By: #### C BC #### [facility] [address] [place] [address] Dr. Les Bryan RBC 4.48 106/ul Normal 4.20-5.40 [facility] Comment on above: Performed By: #### C BC #### [facility] [address] [place], [place] [address] Dr. Les Bryan WBC 9.4 103/ul Normal 4.0-11.0 [facility] Comment on above: Performed By: #### C BC #### [facility] [address] [place], [place] [address] ABD/PELVIS WO CONon [...] cholecystectomy and hysterectomy. Electronically authenticated by: IWONA ALVAREZZ Date: 2022-02-25 19:[address] [facility] ER URINE PROFILEon 2 Bilirubin Ql (U) Negative Normal NEGATIVE [facility] Comment on above: Performed By: #### E RUR, UMICRO #### [facility] [address] [address] [address] Les Bryan Clarity (U) CLEAR Normal CLEAR [facility] Comment on above: Performed By: #### E RUR, UMICRO #### [facility] [address] [address] [address] Les Bryan Color (U) YELLOW Normal YELLOW [facility] Comment on above: Performed By: #### E RUR, UMICRO #### [facility] [address] [place] [address] Dr. Les MOY A micrscopic examination will be performed if indicated. Normal [facility] Comment on above: Performed By: #### E RUR, UMICRO #### [facility] [address] [address] [address] Lse Bryan Glucose Ql (U) Negative Normal NEGATIVE [facility] Comment on above: Performed By: #### E RUR, UMICRO #### [facility] [address] [place] [place] [address] Dr. Les Bryan Hemoglobin Ql (U) LARGE Abnormal NEGATIVE [facility] Comment on above: Performed By: #### E RUR, UMICRO #### [facility] [address] [address] [address] Lse Bryan Ketones Ql (U) Negative Normal NEGATIVE [facility] Comment on above: Performed By: #### E RUR, UMICRO #### [facility] [address] [place] [address] Dr. Les Bryan LEUKOCYTES TRACE Abnormal NEGATIVE [facility] Comment on above: Performed By: #### E RUR, UMICRO #### [facility] [address] [address] [address] Les Bryan Nitrite Ql (U) Negative Normal NEGATIVE [facility] Comment on above: Performed By: #### RICARDO STEVENSON #### [facility] [address] [place] [address] Dr. Les Bryan pH (U) 7.0 [pH] Normal 5-9 [facility] Comment on above: Performed By: #### RICARDO STEVENSON #### [facility] [address] [place] [address] Dr. Les Bryan Protein (U) [Mass/Vol] 30 mg/dL Abnormal NEGATIVE/ TRACE [facility] Comment on above: Performed By: #### RICARDO STEVENSON #### [facility] [address] [place] [address] Dr. Les Bryan SPEC GRAVITY 1.025 Normal 1.005-<=1.025 [facility] Comment on above: Performed By: #### RICARDO STEVENSON #### [facility] [address] [place] [place] [address] Dr. Les Bryan UR MICRO IND INDICATED Normal [facility] Comment on above: Performed By: #### RICARDO STEVENSON #### [facility] [address] [place] [address] Dr. Les Bryan Urobilinogen Qn (U) 0.2 {Racquel'U}/dL Normal 0.2 - 1. 0 [facility] Comment on above: Performed By: #### RICARDO STEVENSON #### [facility] [address] [place] [place] [address] Dr. Les Bryan LIPASEon 02-25-2022 Lipase [Catalytic activity/Vol] 82.0 U/L Normal 73.0-393.0 [facility] Comment on above: Performed By: #### [id number] #### [facility] [address] [place] [address] Dr. Les Bryan PROF 14(COMP METB)on Albumin [Mass/Vol] 3.7 g/dL Normal 3.4-5.0 [facility] Comment on above: Performed By: #### [id number] #### [facility] [address] [address] [address] Les Bryan Albumin/Globulin [Mass ratio] 0.9 {ratio} Normal [facility] Comment on above: Performed By: #### [id number] #### [facility] [address] [address] [address] Les Bryan ALP [Catalytic activity/Vol] 129 U/L Critically high 46-116 [facility] Comment on above: Performed By: #### [id number] #### [facility] [address] [address] [address] Les Bryan ALT [Catalytic activity/Vol] 86 U/L Critically high 14-59 [facility] Comment on above: Performed By: #### [id number] #### [facility] [address] [place] [place] [address] Dr. Les Bryan Anion gap [Moles/Vol] 15.3 mmol/L Normal [facility] Comment on above: Performed By: #### [id number] #### [facility] [address] [address] [address] Les Bryan AST [Catalytic activity/Vol] 51 U/L Critically high 15-37 [facility] Comment on above: Performed By: #### [id number] #### [facility] [address] [address] [address] Les Bryan Bilirubin [Mass/Vol] 0.2 mg/dL Normal 0.2-1.0 [facility] Comment on above: Performed By: #### [id number] #### [facility] [address] [address] [address] Les Bryan Calcium [Mass/Vol] 8.4 mg/dL Critically low 8.5-10.1 [facility] Comment on above: Performed By: #### 4 [id number] #### [facility] [address] [address] [address] Les Bryan Chloride [Moles/Vol] 103 mmol/L Normal 98-107 [facility] Comment on above: Performed By: #### 4 [id number] #### [facility] [address] [place] [place] [address] Dr. Les Bryan CO2 [Moles/Vol] 26.2 mmol/L Normal 21.0-32.0 [facility] Comment on above: Performed By: #### 4 [id number] #### [facility] [address] [place] [place] [address] Dr. Les Bryan Creatinine [Mass/Vol] 0.72 mg/dL Normal 0.55-1.02 [facility] Comment on above: Performed By: #### 4 [id number] #### [facility] [address] [place] [place] [address] Dr. Les Bryan EGFR-AF CZECH >60 Normal >=60 [facility] Comment on above: Performed By: #### [id number] #### [facility] [address] [place] [address] Dr. Les Bryan EGFR-NON AF CZECH >60 Normal >=60 [facility] Comment on above: Performed By: #### 4 [id number] #### [facility] [address] [place] [place] [address] Dr. Les Bryan Globulin (S) [Mass/Vol] 4.2 g/dL Normal [facility] Comment on above: Performed By: #### [id number] #### [facility] [address] [place] [address] Dr. Les Bryan Glucose [Mass/Vol] 121 mg/dL Critically high 74-106 [facility] Comment on above: Performed By: #### 4 [id number] #### [facility] [address] [place] [place] [address] Dr. Lse Bryan Potassium [Moles/Vol] 3.5 mmol/L Normal 3.5-5.1 [facility] Comment on above: Performed By: #### 4 [id number] #### [facility] [address] [place] [address] Dr. Les Bryan Protein [Mass/Vol] 7.9 g/dL Normal 6.1-8.2 [facility] Comment on above: Performed By: #### 4 [id number] #### [facility] [address] [place] [address] Dr. Les Bryan Sodium [Moles/Vol] 141 mmol/L Normal 136-145 [facility] Comment on above: Performed By: #### 4 [id number] #### [facility] [address] [place] [address] Dr. Les Bryan Urea nitrogen [Mass/Vol] 14.0 mg/dL Normal 7.0-18.0 [facility] Comment on above: Performed By: #### 4 [id number] #### [facility] [address] [place] [address] Dr. Les Bryan Urea nitrogen/Creatinine [Mass ratio] 19.4 mg/mg Normal [facility] Comment on above: Performed By: #### 4 [id number] #### [facility] [address] [place] [address] Dr. Les Bryan URINE MICROSCOPIC ONLYon BACTERIA TRACE Abnormal NONE SEEN [facility] Comment on above: Performed By: #### Andi GUY UMICRO #### [facility] [address] [place] [address] Dr. Les Bryan Bacteria identified Cx Nom (U) NOT INDICATED Normal [facility] Comment on above: Performed By: #### Andi GUY UMICRO #### [facility] [address] [place] [address] Dr. Les Bryan CAST NONE SEEN Normal NONE SEEN [facility] Comment on above: Performed By: #### Andi GUY UMICRO #### [facility] [address] [place] [address] Dr. Les Bryan Crystals LM Nom (Urine sed) NONE SEEN Normal NONE SEEN [facility] Comment on above: Performed By: #### Andi GUY UMICRO #### [facility] [address] [place] [address] Dr. Les Bryan Epithelial cells LM Ql (Urine sed) MODERATE Abnormal NONE SEEN /RARE [facility] Comment on above: Performed By: #### Andi GUY UMICRO #### [facility] [address] [address] [address] Les Bryan MUCOUS NONE SEEN Normal NONE SEEN [facility] Comment on above: Performed By: #### RICARDO STEVENSON #### [facility] [address] [address] [address] Les Bryan RBC 20-50 Abnormal 0-[address] [facility] Comment on above: Result Comment: cren ated RBCs Performed By: #### RICARDO STEVENSON #### [facility] [address] [address] [address] Les Bryan WBC 2-5 Abnormal NONE SEEN [facility] Comment on above: Performed By: #### RICARDO STEVENSON #### [facility] [address] [address] [address] Les Bryan Vital Signs Date Time Vital Sign Value Performing Clinician Facility 09-13-2023 10:30-0500 Body height 162.56 cm Shae Love [facility] 09-13-2023 10:30-0500 Body mass index (BMI) [Ratio] 23.14 kg/m2 [facility]ae [facility] 09-13-2023 10:30-0500 Body temperature 98.4 [degF] Shae [facility] 09-13-2023 10:30-0500 Body weight 61.15 kg Shae Love [facility] 09-13-2023 10:30-0500 Respiratory rate 18 /min Shae Love [facility] 09-13-2023 10:30-0500 SaO2% (BldA) [Mass fraction] 99 % Shae Love [facility] 04-21-2022 09:07-0400 Blood Pressure Location Jl BRIDGESL [facility] [place] 04-21-2022 09:07-0400 Diastolic blood pressure 86 mm[Hg] Jl BRIDGESL [facility] [place] 04-21-2022 09:07-0400 Heart rate 92 /min Jl NILL [facility] [place] 04-21-2022 09:07-0400 Respiratory rate 16 /min Jl BRIDGESL [facility] [place] 04-21-2022 09:07-0400 Systolic blood pressure 127 mm[Hg] Jl BRIDGESL [facility] Encounters Encounter Date Encounter Type Care Provider Facility Start: 06-12-2024 End: 06-12-2024 Emergency department patient visit [facility] Start: 09-13-2023 Office outpatient ne w 20 minutes Shae Love [facility] [place] Start: 09-13-2023 End: 09-13-2023 ambulatory Shae Love [facility] [employer] Other Start: 09-13-2023 End: 09-13-2023 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: [facility] [place] Work Phone: Start: 10-09-2022 End: 10-10-[address] ANGELICA DE Facility:[facility] Start: 09-04-2022 End: 09-04-[address] ANGELICA DE Facility:[facility] Start: 09-01-2022 End: 09-02-[address] ANGELICA DE Facility:[facility] Start: 05-30-2022 End: 05-30-[address] ANGELICA DE Facility:[facility] Start: 05-12-2022 End: 05-12-2022 Patient encounter procedure Jl Nieves [facility] Start: 05-03-2022 End: 05-03-2022 Patient encounter procedure Jl Nieves NILL [facility] Start: 04-21-2022 End: 04-21-2022 Patient encounter procedure Jl Nieves [facility] [place] Start: 04-20-[address] ANGELICA DE Facility :[facility] Start: 04-17-2022 End: 04-18-[address] ANGELICA DE Facility:[facility] Start: 04-05-2022 End: 04-06-[address] ANGELICA DE Facility:[facility] Start: 02-27-2022 End: 02-28-[address] ANGELICA DE Facility:[facility] Start: 02-25-2022 End: 02-25-2022 ambulatory EMILY MCDERMOTT Facility:[facility] Procedures Date Procedure Procedure Detail Performing Clinician Start: 09-13-2023 Radiologic examinati on of knee RUBY Love Work Phone: Start: 05-03-2022 Excision of dermatofibroma Jl FREDERICK Comment on above: left ankle Start: 07-08-2015 laparoscopic cholecy stectomy with intraoperative cholangiogram Jl FREDERICK Abdominal hysterectomy Sebastian nilda BRIDGESL Bilateral complete salpingectomy Jl FREDERICK Diagnostic laparoscopy Sebastian BRIDGESL Loop electrosurgical excision procedure Jl FREDERICK Payers Date Payer Category Payer Unknown [id number] 1980 Unknown [id number] 2.16.84 [id number] 1980 Unknown [id number] 2.16.84 [id number] 1979 Unknown [id number] 2.16.84 [id number] 1979 Unknown [id number] 2.16.84 [id number] 1979 Unknown [id number] 2.16.84 [id number] 1979 Unknown [id number] 2.16.84 [id number] 1979 Unknown [id number] 2.16.84 [id number] 1979 Unknown [id number] 2.16.84 [id number] 1979 Unknown [id number] 2.16.84 [id number] 1979 Unknown [id number] 2.16.8 [id number] 1960 Self-pay 1960 Unknown [id number] Unknown [id number] 2.16.8 [id number] Social History Date Type Detail Facility Start: 04-21-2022 Tobacco smoking status Ex-smoker (fi nding) [facility] Tobacco smoking status Never [facility] Sex Assigned At Female [facility] Start: 1980 Sex Assigned At Female F [facility] Functional Status Date Assessment Result Facility 04-21-2022 Functional Status N/A [facility] [place] Evaluation note 09-13-2023 Note Date & Type [...] understanding and is agreeable to treatment plan [facility] Clinical Note 04-21-2022 Note Date & [...] Mother. Primary malignant neoplasm of bladder: Father. [facility] Comment on above: Result Comment: Elec tronically Signed By: Jl FREDERICK MD\.br\Date and Time Signed: 04/21/22 09:48 EDT Evaluation + Plan note Note Date & Type Note Facility Evaluation + Plan note Future Appointments Appointment Date:05/03/2022 03:00:00 PM Scheduled Provider:Jl FREDERICK MD Location:[facility] Appointment Type: Procedure 30 [facility] [place] Evaluation + Plan note Note Date & Type Note Facility Evaluation + Plan note Future Appointments Appointment Date:05/12/2022 03:40:00 PM Scheduled Provider:Jl FREDERICK MD Location:[facility] Appointment Type: Post Op 15 [facility] [place] Evaluation note Note Date & Type Note Facility Evaluation note No assessment information availa [facility] Work Phone: History general Narrative - Reported Note Date & Type Note Facility History general Narrative - Reported Type Medical History Anxiety disorder Medical History chronic depression Medical History thyriod Surgical History [facility] Hospital course Narrative Note Date & Type Note Facility Hospital course Narrative No data available for this section [facility] [place] [facility] Discharge instructions Note Date & Type Note Facility Hospital Discharge instructions No data available for this section [facility] [place] Progress note Note Date & Type Note Facility Progress note No data available for this section [facility] [place] Summary Purpose Family History No Family History Records FoundNo Family History Records FoundNo Family History Records FoundNo Family History Records Found Advance Directives No Advanced Directives Records FoundNo Advanced Directives Records FoundNo Advanced Directives Records FoundNo Advanced Directives Records Found Additional Source Comments Care Team (unrecognized sect ion and content) Team Status: Inactive Member Role Status Richmond Love APRN Attending Provider Active INFORMATION SOURCE (unrecogn ized section and content) DATE CREATED AUTHOR 05/16/2022 [facility] DATE CREATED AUTHOR AUTHOR'S ORGANIZ ATION 10/20/2022 [facility] DATE CREATED AUTHOR AUTHOR'S ORGANIZ ATION 12/07/2023 [facility] DATE CREATED AUTHOR AUTHOR'S ORGANIZ ATION 06/15/2024 [facility] REASON FOR VISIT (unrecogniz ed section and [...] BE BASED ON THE PRIMARY CLINICAL RECORDS. [employer] [facility] provides no warranty or guarantee of the accuracy or completeness of information in this document.
--- NOTE | 2024-07-15 11:45 | XR_ITS ---
The [address] [address] Patient Name: LUCIA HERNDON MRN: [id number] date: 1980 Sex: F Assigned Patient Location: LAB Current Patient Location: Accession/Order Number: [id number] Exam Date: 07/15/2024 11:40 Report Date: 07/16/2024 14:33 At the request of: ANGELICA VERONICA Procedure: XR knee RT 3V PROCEDURE: XR knee RT 3V COMPARISON: None. HISTORY: DERANGEMENT OF KNEE FINDINGS: BONES:No fracture, acute abnormality, or significant arthropathy. SOFT TISSUES:Negative. No visible soft tissue swelling. EFFUSION:None visible. OTHER: Negative. XR/XR knee RT 3V IMPRESSION: No acute radiographic abnormality Electronically authenticated by: BELIA HENDRICKS Date: 07/16/2024 14:33
[2024-07-15 12:13] LABS: Ammonia 26 umol/L (11-32)
[2024-07-15 12:22] LABS: Alanine Aminotransferase 53 U/L (14-59); Albumin Level 3.7 g/dL (3.4-5.0); Alkaline Phosphatase 107 U/L (46-116); Anion Gap 8.9; Aspartate Amino Transferase 30 U/L (15-37); BUN Creatinine Ratio 14.1; Bilirubin Total 0.4 mg/dL (0.2-1.0); Calcium 8.9 mg/dL (8.5-10.1); Carbon Dioxide 29.6 mmol/L (21.0-32.0); Chloride 102 mmol/L (98-107); Estimated GFR (African America >60 (>=60); Estimated GFR (Non-African Ame >60 (>=60); Globulin 3.7 g/dL; Glucose 103 mg/dL (74-106); Potassium 3.5 mmol/L (3.5-5.1); Sodium 137 mmol/L (136-145); Total Protein 7.4 g/dL (6.4-8.2)
[2024-07-15 12:24] LABS: INR 0.98; Partial Thromboplastin Time 29.9 sec (22.3-36.2); Prothrombin Time 10.4 sec (9.0-11.6)
[2024-07-15 12:46] LABS: Basophils Absolute Auto 0.1 10^3/uL (0.0-0.1); Basophils Percent Auto 0.6 % (0.2-2.0); Eosinophils Absolute Auto 0.2 10^3/uL (0.0-0.7); Eosinophils Percent Auto 2.1 % (0.9-7.0); Hematocrit 40.3 % (36.0-48.0); Hemoglobin 13.7 g/dL (12.0-16.0); Immature Granulocytes Pct Auto 0.9 % (0.0-0.5); Lymphocytes Absolute Auto 3.6 10^3/uL (1.2-3.8); Lymphocytes Percent Auto 33.4 % (20.5-60.0); Mean Corpuscular Hemoglobin 30.7 pg (26.7-34.0); Mean Corpuscular Volume 90.4 fL (81.0-99.0); Mean Platelet Volume 9.4 fL (9.5-13.5); Monocytes Absolute Auto 0.6 10^3/uL (0.3-0.8); Monocytes Percent Auto 5.9 % (1.7-12.0); Neutrophils Absolute Auto 6.2 10^3/uL (1.4-6.5); Neutrophils Percent Auto 57.1 % (43.0-75.0); Platelet Count 339 10^3/uL (150-450); Red Blood Count 4.46 10^6/uL (4.20-5.40); Red Cell Distribution Width 13.2 % (11.0-15.0); White Blood Count 10.8 10^3/uL (4.0-11.0)
[2024-07-16 05:08] LABS: HBsAg Screen Negative (Negative); HCV Ab Non Reactive (Non Reactive); Hep A Ab, IgM Negative (Negative); Hep B Core Ab, IgM Negative (Negative)
== END 2024-07-15 11:27 | disposition home or self-care (01) ==
LOC: LAB 11:30
PROVIDERS: PCP Family Medicine; Visit Provider Family Medicine
DX: R74.8 Abnormal levels of other serum enzymes (principal); M23.91 Unspecified internal derangement of right knee
CPT/HCPCS: 36415; 73562; 80053; 80074; 82140; 83690; 85025; 85610; 85730

== ENCOUNTER 2024-11-24 09:27 | Outpatient (OUT) | payer BC, SELFPAY ==
--- NOTE | 2024-11-24 09:31 | CT_ITS ---
The [address] [address] Patient Name: LUCIA HERNDON MRN: [id number] date: 1980 Sex: F Assigned Patient Location: CT Current Patient Location: CT Accession/Order Number: [id number] Exam Date: 11/24/2024 09:35 Report Date: 11/24/2024 14:42 At the request of: ANGELICA VERONICA Procedure: CT chest w con EXAMINATION: CT chest w con HISTORY: Lung Nodules follow-up COMPARISON: CT chest 04/25/2024, 10/09/2022 TECHNIQUE: Multi-planar CT images were obtained without and/or with IV contrast as indicated by examination type. Axial, Coronal, and Sagittal images. Dose reduction techniques were achieved by using automated exposure control and/or adjustment of mA and/or kV according to patient size and/or use of iterative reconstruction technique. FINDINGS: LUNGS: A few small pleural-based nodules scattered bilaterally, largest is within lateral left lower lobe, 4.5 mm. No new nodules or overtly suspicious nodules. PLEURA: No mass, effusion, or pneumothorax. VASCULATURE: No abnormality. UNIQUE: No mass or adenopathy. MEDIASTINUM: No mass or adenopathy. CARDIAC: No enlargement or pericardial thickening.. Coronary artery calcifications: Absent AORTA: No aneurysm or dissection. CHEST WALL: No mass or axillary adenopathy. BONES: No bone lesion or fracture. LIMITED ABDOMEN: No suspicious findings Limited images of the upper abdomen. OTHER: Negative. CT/CT chest w con IMPRESSION: 1. Stable small bilateral pulmonary nodules; largest is again 4.5 mm within left lower lobe. Given the amount of time these have been stable they are consistent with benign nodules. No additional follow-up recommended at this time unless patient is a smoker. Electronically authenticated by: AMANDA CASSIDY Date: 11/24/2024 14:42
--- OUTSIDE RECORDS SUMMARY | 2024-11-24 09:45 | XMS_ITS | CCD ---
Author Organization [facility] Care Team Providers Care Superintendent Of Schools Name Role Phone Angelica De Primary Care [...] Shae Love Unavailable RUBY Love Attending Provider [phone] Shae Love Attending Unavailable Shae Love Admitting Unavailable Allergies Allergy Classification Reported Allergen(s) Allergy Type Date of Onset Reaction(s) Facility (5 sources) Latex; Translations: [Latex] Drug allergy 3 Eruption of skin (disorder), rash [facility] (4 sources) Sulfamethoxazole / Trimethoprim; Translations: [sulfamethoxazole-tr imethoprim] Drug Allergy Weal (disorder), hives [facility] (2 sources) natural latex rubber Drug allergy (disorder) [facility] (2 sources) Sulfamethoxazole / Trimethoprim Drug Allergy [facility] (1 source) Sulfamethoxazole Drug Allergy 3 [facility] (1 source) Trimethoprim Drug Allergy 3 [facility] Medications Current Medications Medication Drug [...] (1 source) l-Thyroxine Levothyroxine So dium Not-Taking [place] (1 source) [place] Not- Taking Problems Active Problems Problem Classification [...] Interpretation Reference Range Facility Drugs of Abuse, S/Jm 2023 Amphetamines, S/P Negative Normal Cutoff 20 [facility] Comment on above: Performed By: #### A DAU9S #### [facility] [address] [place] [address] Supervisor Operations: Trey Carroll MD #### CP, CDP, MG #### [facility] [address] [place], [place] [id number] Supervisor Operations: Belia Manjarrez MD Barbiturates, S/P Negative Normal Cutoff 50 [facility] Comment on above: Performed By: #### A DAU9S #### [facility] [address] [place] [address] Supervisor Operations: Trey Carroll MD #### CP, CDP, MG #### [facility] [address] [place], [place] [id number] Supervisor Operations: Belia Manjarrez MD Benzodiazepines, S/P Negative Normal Cutoff 50 [facility] Comment on above: Performed By: #### A DAU9S #### [facility] [address] [place] [address] Supervisor Operations: Trey Carroll MD #### CP, CDP, MG #### [facility] [address] [place], [place] [id number] Supervisor Operations: Belia Manjarrez MD Buprenorphine, S/P Negative Normal Cutoff 1 [facility] Comment on above: Performed By: #### A DAU9S #### [facility] [address] [place] [address] Supervisor Operations: Trey Carroll MD #### CP, CDP, MG #### [facility] [address] [place], [place] [id number] Supervisor Operations: Belia Manjarrez MD Cocaine, Serum/Plas Negative Normal Cutoff 20 [facility] Comment on above: Performed By: #### A DAU9S #### [facility] [address] [place] [address] Supervisor Operations: Trey Carroll MD #### CP, CDP, MG #### [facility] [address] [place] [address] Supervisor Operations: Belia Manjarrez MD Comment See Note Normal [facility] Comment on above: Result Comment: (NOT [...] developed and its performance characteristics determined by [facility]. It has not been cleared or approved by the [place] Food and Drug Administration. This test was performed in a CLIA certified laboratory and is intended for clinical purposes. Performed By: [facility] [address] [place] [address] [employer] Centrifugal Operator: Trace Vazquez MD, PhD CLIA Number: [id number] Performed By: #### A DAU9S #### [address] [address] Supervisor Operations: Trey Carroll MD #### MARITZA ROMERO, MG #### [facility] [address] [place] [address] Supervisor Operations: Belia Manjarrez MD Methadone, S/P Negative Normal Cutoff 25 [facility] Comment on above: Performed By: #### A DAU9S #### [facility] [address] [place] [address] Supervisor Operations: Trey Carroll MD #### HEATHER CDP, MG #### [facility] [address] [place] [address] Supervisor Operations: Belia Manjarrez MD Methamphetamine,S/P Negative Normal Cutoff 20 [facility] Comment on above: Performed By: #### A DAU9S #### [facility] [address] [place] [address] Supervisor Operations: Trey Carroll MD #### CP, CDP, MG #### [facility] [address] [place], [place] [id number] Supervisor Operations: Belia Manjarrez MD Opiates, Serum/Plas Negative Normal Cutoff 20 [facility] Comment on above: Performed By: #### A DAU9S #### [facility] [address] [place], [place] [id number] Supervisor Operations: Trey Carroll MD #### CP, CDP, MG #### [facility] [address] [place] [address] Supervisor Operations: Belia Manjarrez MD Oxycodone, S/P Negative Normal Cutoff 20 [facility] Comment on above: Performed By: #### A DAU9S #### [facility] [address] [place] [address] Supervisor Operations: Trey Carroll MD #### CP, CDP, MG #### [facility] [address] [place] [address] Supervisor Operations: Belia Manjarrez MD Phencyclidine, S/P Negative Normal Cutoff 10 [facility] Comment on above: Performed By: #### A DAU9S #### [facility] [address] [place], [place] [id number] Supervisor Operations: Trey Carroll MD #### CP, CDP, MG #### [facility] [address] [place] [address] Supervisor Operations: Belia Manjarrez MD THC, Serum/Plasma Negative Normal Cutoff 20 [facility] Comment on above: Performed By: #### A DAU9S #### [facility] [address] [place] [address] Supervisor Operations: Trey Carroll MD #### CP, CDP, MG #### [facility] [address] [place] [address] Supervisor Operations: Belia Manjarrez MD CBC with Diffon 06-12-2024 Abs. Basophil 0.04 k/uL Normal 0.00-0.20 [facility] Comment on above: Performed By: #### A DAU9S #### [facility] [address] [place], [place] [id number] Supervisor Operations: Trey Carroll MD #### HEATHER, CDP, MG #### [facility] [address] [place] [address] Supervisor Operations: Belia Manjarrez MD Abs.Imm.Granulocyte 0.06 k/uL Normal 0.00-0.30 [facility] Comment on above: Performed By: #### A DAU9S #### [facility] [address] [place] [address] Supervisor Operations: Trey Carroll MD #### CP, CDP, MG #### [facility] [address] [place] [address] Supervisor Operations: Belia Manjarrez MD Abs.Neutrophil (Seg) 6.02 k/uL Normal 1.50-8.10 [facility] Comment on above: Performed By: #### A DAU9S #### [facility] [address] [place], [place] [id number] Supervisor Operations: Trey Carroll MD #### CP, CDP, MG #### [facility] [address] [place] [address] Supervisor Operations: Belia Manjarrez MD Basophils/100 WBC (Bld) 0 % Normal 0-2 [facility] Comment on above: Performed By: #### A DAU9S #### [facility] [address] [place], [place] [id number] Supervisor Operations: Trey Carroll MD #### CP, CDP, MG #### [facility] [address] [place] [address] Supervisor Operations: Belia Manjarrez MD Eosinophils (Bld) [#/Vol] 0.16 10*3/uL Normal 0.00-0.44 [facility] Comment on above: Performed By: #### A DAU9S #### [facility] [address] [place] [address] Supervisor Operations: Trey Carroll MD #### CP, CDP, MG #### [facility] [address] [place] [address] [place] [address] Supervisor Operations: Belia Manjarrez MD Eosinophils/100 WBC (Bld) 2 % Normal 1-4 [facility] Comment on above: Performed By: #### A DAU9S #### [facility] [address] [place], [place] [id number] Supervisor Operations: Trey Carroll MD #### HEATHER, CDP, MG #### [facility] [address] [place] [address] Supervisor Operations: Belia Manjarrez MD Erythrocyte distribution width (RBC) [Ratio] 13.3 % Normal 11.8-14.4 [facility] Comment on above: Performed By: #### A DAU9S #### [facility] [address] [place], [place] [id number] Supervisor Operations: Trey Carroll MD #### CP, CDP, MG #### [facility] [address] [place] [address] Supervisor Operations: Belia Manjarrez MD Hematocrit (Bld) [Volume fraction] 41.0 % Normal 36.3-47.1 [facility] Comment on above: Performed By: #### A DAU9S #### [facility] [address] [place], [place] [id number] Supervisor Operations: Trey Carroll MD #### CP, CDP, MG #### [facility] [address] [place] [address] Supervisor Operations: Belia Manjarrez MD Hemoglobin (Bld) [Mass/Vol] 14.1 g/dL Normal 11.9-15.1 [facility] Comment on above: Performed By: #### A DAU9S #### [facility] [address] [place], [place] [id number] Supervisor Operations: Trey Carroll MD #### CP, CDP, MG #### [facility] [address] [place] [address] Supervisor Operations: Belia Manjarrez MD Immature granulocytes/100 WBC (Bld) 1 % High 0 [facility] Comment on above: Performed By: #### A DAU9S #### [facility] [address] [place], [place] [id number] Supervisor Operations: Trey Carroll MD #### HEATHER, CDP, MG #### [facility] [address] [place] [address] Supervisor Operations: Belia Manjarrez MD Lymphocytes (Bld) [#/Vol] 3.39 10*3/uL Normal 1.10-3.70 [facility] Comment on above: Performed By: #### A DAU9S #### [facility] [address] [place], [place] [id number] Supervisor Operations: Trey Carroll MD #### CP, CDP, MG #### [facility] [address] [place] [address] Supervisor Operations: Belia Manjarrez MD Lymphocytes/100 WBC (Bld) 33 % Normal 24-43 [facility] Comment on above: Performed By: #### A DAU9S #### [facility] [address] [place], [place] [id number] Supervisor Operations: Trey Carroll MD #### CP, CDP, MG #### [facility] [address] [place] [address] Supervisor Operations: Belia Manjarrez MD MCH (RBC) [Entitic mass] 30.9 pg Normal 25.2-33.5 [facility] Comment on above: Performed By: #### A DAU9S #### [facility] [address] [place], [place] [id number] Supervisor Operations: Trey Carroll MD #### HEATHER, CDP, MG #### [facility] [address] [place] [address] Supervisor Operations: Belia Manjarrez MD MCHC (RBC) [Mass/Vol] 34.4 g/dL Normal 28.4-34.8 [facility] Comment on above: Performed By: #### A DAU9S #### [facility] [address] [place] [address] Supervisor Operations: Trey Carroll MD #### CP, CDP, MG #### [facility] [address] [place] [address] [place] [address] Supervisor Operations: Belia Manjarrez MD MCV (RBC) [Entitic vol] 89.9 fL Normal 82.6-102.9 [facility] Comment on above: Performed By: #### A DAU9S #### [facility] [address] [place], [place] [id number] Supervisor Operations: Trey Carroll MD #### CP, CDP, MG #### [facility] [address] [place] [address] Supervisor Operations: Belia Manjarrez MD Monocytes (Bld) [#/Vol] 0.67 10*3/uL Normal 0.10-1.20 [facility] Comment on above: Performed By: #### A DAU9S #### [facility] [address] [place] [address] Supervisor Operations: Trey Carroll MD #### CP, CDP, MG #### [facility] [address] [place] [address] Supervisor Operations: Belia Manjarrez MD Monocytes/100 WBC (Bld) 7 % Normal 3-12 [facility] Comment on above: Performed By: #### A DAU9S #### [facility] [address] [place], [place] [id number] Supervisor Operations: Trey Carroll MD #### CP, CDP, MG #### [facility] [address] [place] [address] Supervisor Operations: Belia Manjarrez MD Neutrophil (Seg) 57 % Normal 36-65 [facility] Comment on above: Performed By: #### A DAU9S #### [facility] [address] [place] [address] Supervisor Operations: Trey Carroll MD #### CP, CDP, MG #### [facility] [address] [place], [place] [id number] Supervisor Operations: Belia Manajrrez MD NRBC Automated 0.0 per 100 WBC Normal 0.0 [facility] Comment on above: Performed By: #### A DAU9S #### [facility] [address] [place] [address] Supervisor Operations: Trey Carroll MD #### CP, CDP, MG #### [facility] [address] [place] [address] Supervisor Operations: Belia Manjarrez MD Platelet mean volume (Bld) [Entitic vol] 9.6 fL Normal 8.1-13.5 [facility] Comment on above: Performed By: #### A DAU9S #### [facility] [address] [place] [address] Supervisor Operations: Trey Carroll MD #### CP, CDP, MG #### [facility] [address] [place], [place] [phone] Supervisor Operations: Belia Manjarrez MD Platelets (Bld) [#/Vol] 314 10*3/uL Normal 138-453 [facility] Comment on above: Performed By: #### A DAU9S #### [facility] [address] [place] [address] Supervisor Operations: Trey Carroll MD #### CP, CDP, MG #### [facility] [address] [place] [address] Supervisor Operations: Belia Manjarrez MD RBC (Bld) [#/Vol] 4.56 10*6/uL Normal 3.95-5.11 [facility] Comment on above: Performed By: #### A DAU9S #### [facility] [address] [place] [address] Supervisor Operations: Trey Carroll MD #### CP, CDP, MG #### [facility] [address] [place], [place] [id number] Supervisor Operations: Belia Manjarrez MD WBC (Bld) [#/Vol] 10.3 10*3/uL Normal 3.5-11.3 [facility] Comment on above: Performed By: #### A DAU9S #### [facility] [address] [place] [address] Supervisor Operations: Trey Carroll MD #### CP, CDP, MG #### [facility] [address] [place] [address] Supervisor Operations: Belia Manjarrez MD Comp Metabolic Profon 2023 Albumin [Mass/Vol] 4.4 g/dL Normal 3.5-5.2 [facility] Comment on above: Performed By: #### A DAU9S #### [facility] [address] [place] [address] Supervisor Operations: Trey Carroll MD #### CP, CDP, MG #### [facility] [address] [place] [address] Supervisor Operations: Belia Manjarrez MD Albumin/Glob Ratio 1.5 Normal 1.0-2.5 [facility] Comment on above: Performed By: #### A DAU9S #### [facility] [address] [place], [place] [id number] Supervisor Operations: Trey Carroll MD #### CP, CDP, MG #### [facility] [address] [place] [address] Supervisor Operations: Belia Manjarrez MD Alkaline Phos 108 U/L High 35-104 [facility] Comment on above: Performed By: #### A DAU9S #### [facility] [address] [place] [address] Supervisor Operations: Trey Carroll MD #### CP, CDP, MG #### [facility] [address] [place] [address] Supervisor Operations: Belia Manjarrez MD ALT [Catalytic activity/Vol] 46 U/L High 5-33 [facility] Comment on above: Performed By: #### A DAU9S #### [facility] [address] [place], [place] [id number] Supervisor Operations: Trey Carroll MD #### CP, CDP, MG #### [facility] [address] [place] [address] Supervisor Operations: Belia Manjarrez MD Anion gap [Moles/Vol] 10 mmol/L Normal 9-17 [facility] Comment on above: Performed By: #### A DAU9S #### [facility] [address] [place] [address] Supervisor Operations: Trey Carroll MD #### CP, CDP, MG #### [facility] [address] [place] [address] Supervisor Operations: Belia Manjarrez MD AST [Catalytic activity/Vol] 32 U/L High <32 [facility] Comment on above: Performed By: #### A DAU9S #### [facility] [address] [place] [address] Supervisor Operations: Trey Carroll MD #### CP, CDP, MG #### [facility] [address] [place] [address] Supervisor Operations: Belia Manjarrez MD Bilirubin [Mass/Vol] 0.4 mg/dL Normal 0.3-1.2 [facility] Comment on above: Performed By: #### A DAU9S #### [facility] [address] [place] [address] Supervisor Operations: Trey Carroll MD #### CP, CDP, MG #### [facility] [address] [place] [address] Supervisor Operations: Belia Manjarrez MD BUN/CRE Ratio 12 Normal 9-20 [facility] Comment on above: Performed By: #### A DAU9S #### [facility] [address] [place] [address] Supervisor Operations: Trey Carroll MD #### CP, CDP, MG #### [facility] [address] [place] [address] Supervisor Operations: Belia Manjarrez MD Calcium [Mass/Vol] 9.1 mg/dL Normal 8.6-10.4 [facility] Comment on above: Performed By: #### A DAU9S #### [facility] [address] [place] [address] Supervisor Operations: Trey Carroll MD #### CP, CDP, MG #### [facility] [address] [place] [address] Supervisor Operations: Belia Manjarrez MD Chloride [Moles/Vol] 106 mmol/L Normal 98-107 [facility] Comment on above: Performed By: #### A DAU9S #### [facility] [address] [place] [address] Supervisor Operations: Trey Carroll MD #### HEATHER CDP, MG #### [facility] [address] [place] [address] Supervisor Operations: Belia Manjarrez MD CO2 [Moles/Vol] 26 mmol/L Normal 20-31 [facility] Comment on above: Performed By: #### A DAU9S #### [facility] [address] [place] [address] Supervisor Operations: Trey Carroll MD #### HEATHER CDP, MG #### [facility] [address] [place] [address] Supervisor Operations: Belia Manjarrez MD Creatinine [Mass/Vol] 0.5 mg/dL Normal 0.5-0.9 [facility] Comment on above: Performed By: #### A DAU9S #### [facility] [address] [place] [address] Supervisor Operations: Trey Carroll MD #### HEATHER, CDP, MG #### [facility] [address] [place] [address] Supervisor Operations: Belia Manjarrez MD GFR/1.73 sq M.predicted among non-blacks MDRD (S/P/Bld) [Vol rate/Area] mL/min/{1.73_m2} Normal >60 [facility] Comment on above: Result Comment: These [...] By: #### A DAU9S #### [facility] [address] [place] [address] Supervisor Operations: Trey Carroll MD #### CP, CDP, MG #### [facility] [address] [place] [address] Supervisor Operations: Belia Manjarrez MD Glucose [Mass/Vol] 90 mg/dL Normal 70-99 [facility] Comment on above: Performed By: #### A DAU9S #### [facility] [address] [address] Supervisor Operations: Trey Carroll MD #### CP, CDP, MG #### [facility] [address] [place] [address] Supervisor Operations: Belia Manjarrez MD Potassium [Moles/Vol] 4.2 mmol/L Normal 3.7-5.3 [facility] Comment on above: Performed By: #### A DAU9S #### [facility] [address] [place] [address] Supervisor Operations: Trey Carroll MD #### CP, CDP, MG #### [facility] [address] [place] [address] Supervisor Operations: Belia Manjarrez MD Protein [Mass/Vol] 7.4 g/dL Normal 6.4-8.3 [facility] Comment on above: Performed By: #### A DAU9S #### [facility] [address] [place] [address] Supervisor Operations: Trey Carroll MD #### CP, CDP, MG #### [facility] [address] [place] [address] [place] [address] Supervisor Operations: Belia Manjarrez MD Sodium [Moles/Vol] 142 mmol/L Normal 135-144 [facility] Comment on above: Performed By: #### A DAU9S #### [facility] [address] [place] [address] Supervisor Operations: Trey Carroll MD #### CP, CDP, MG #### [facility] [address] [place] [address] [address] [place], [place] [id number] Supervisor Operations: Belia Manjarrez MD Urea nitrogen [Mass/Vol] 6 mg/dL Normal 6-20 [facility] Comment on above: Performed By: #### A DAU9S #### [facility] [address] [place] [address] Supervisor Operations: Trey Carroll MD #### CP, CDP, MG #### [address] [place], [place] [id number] Supervisor Operations: Belia Manjarrez MD Drug Scr, Abuse, Uron 2023 Amphetamine(s),Ur Negative Normal NEG [facility] Comment on above: Result Comment: (Positive cutoff 1000 ng/mL) Performed By: #### D AU #### [address] [place] [address] Supervisor Operations: Belia Manjarrez MD Barbiturate(s),Ur Negative Normal NEG [facility] Comment on above: Result Comment: (Positive cutoff 200 ng/mL) Performed By: #### D AU #### [address] [place] [address] Supervisor Operations: Belia Manjarrez MD Benzodiazepine(s) Negative Normal NEG [facility] Comment on above: Result Comment: (Positive cutoff 200 ng/mL) Performed By: #### D AU #### [facility] [address] [place] [address] [address] [place], [place] [phone] Supervisor Operations: Belia Manjarrez MD Buprenorphrine, Ur Negative Normal [facility] Comment on above: Result Comment: (Positive cutoff 5 ng/ml) Performed By: #### D AU #### [facility] [address] [place] [address] [address] [place], [place] [id number] Supervisor Operations: Belia Manjarrez MD Cannabinoid(s),Ur Negative Normal [facility] Comment on above: Result Comment: (Positive cutoff 50 ng/mL) Performed By: #### D AU #### [facility] [address] [place] [address] [place] [address] Supervisor Operations: Belia Manjarrez MD Cocaine Metabolite Negative [facility] Comment on above: Result Comment: (Positive cutoff 300 ng/mL) Performed By: #### D AU #### [address] [place] [address] Supervisor Operations: Belia Manjarrez MD Fentanyl, Urine Negative Normal [facility] Comment on above: Result Comment: (Positive cutoff 5 ng/ml) Performed By: #### D AU #### [address] [place], [place] [phone] Supervisor Operations: Belia Manjarrez MD Interpretive Info Assay provides medical screening only. The absence of expected drug(s) and/or Normal [facility] Comment on above: Result Comment: meta bolite(s) may indicate diluted or adulterated urine, limitations of testing or timing of collection. Testing for legal purposes should be confirmed by another method. To request confirmation of test result, please call the lab within 7 days of sample submission. Performed By: #### D AU #### [address] [place], [place] [id number] Supervisor Operations: Belia Manjarrez MD Methadone Ql (U) Negative Normal [facility] Comment on above: Result Comment: (Positive cutoff 300 ng/mL) Performed By: #### D AU #### [facility] [address] [place] [address] [address] [place], [place] [phone] Supervisor Operations: Belia Manjarrez MD Opiate(s), Ur Negative Normal NEG [facility] Comment on above: Result Comment: (Positive cutoff 300 ng/mL) Performed By: #### D AU #### [address] [place], [place] [id number] Supervisor Operations: Belia Manjarrez MD Oxycodone, Urine Negative Normal NEG [facility] Comment on above: Result Comment: (Positive cutoff 100 ng/mL) Performed By: #### D AU #### [address] [place], [place] [id number] Supervisor Operations: Belia Manjarrez MD Phencyclidine, Ur Negative Normal NEG [facility] Comment on above: Result Comment: (Positive cutoff 25 ng/mL) Performed By: #### D AU #### [address] [place], [place] [id number] Supervisor Operations: Belia Manjarrez MD Magnesiumon 06-12-2024 Magnesium [Mass/Vol] 2.2 mg/dL Normal 1.6-2.6 [facility] Comment on above: Performed By: #### A DAU9S #### [facility] [address] [place] [address] Supervisor Operations: Trey Carroll MD #### CP, CDP, MG #### [address] [place] [address] Supervisor Operations: Belia Manjarrez MD XR knee LT 4V*on 09-13-2023 XR knee LT 4V* [facility] [employer] Other XR knee LT 4V* [facility] [employer] Other XR knee LT 4V* [address] [place] [address] [employer] Other XR knee LT 4V* [place] [address] No rt [employer] Other XR knee LT 4V* XRay Report [facility] Other XR knee LT 4V* Signed [employer] Other XR knee LT 4V* Patient: Josephine Herndon MR#: [id number] [employer] Other XR knee LT 4V* 8 [employer] Other XR knee LT 4V* : 1980 Acct:[id number] [employer] Other XR knee LT 4V* Age/Sex: 43 / F ADM Date: 09/13/23 [employer] Other XR knee LT 4V* Loc: XDUCLY Room: Type: REG CLI [employer] Other XR knee LT 4V* Attending Dr: Shae Love APRN [employer] Other XR knee LT 4V* Copies to: Shae Love APRN [employer] Other XR knee LT 4V* Ordering Provider: Shae Love APRN [employer] Other XR knee LT 4V* Date of Service: 09/13/23 [employer] Other XR knee LT 4V* XR/XR knee LT 4V*: Injury [employer] Other XR knee LT 4V* XR knee LT 4V* 09/13/2023 10:51 AM [employer] Other XR knee LT 4V* SIGNS AND SYMPTOMS: Twisting injury to left knee with pain and swelling medially [employer] Other XR knee LT 4V* PROTOCOL: Frontal, lateral, and oblique radiographs of the left knee [employer] Other XR knee LT 4V* COMPARISON: None [employer] Other XR knee LT 4V* FINDINGS: [employer] Other XR knee LT 4V* The joint spaces are preserved. There is a moderate joint effusion. There is no evidence of fracture [employer] Other XR knee LT 4V* or dislocation. No significant soft tissue swelling. [employer] Other XR knee LT 4V* XR/XR knee LT 4V* [employer] Other XR knee LT 4V* IMPRESSION: [facility] Other XR knee LT 4V* No fracture. [employer] Other XR knee LT 4V* There is a moderate joint effusion. [employer] Other XR knee LT 4V* Impression dictated by: Donato Rockwell M.D.09/13/2023 11:19 AM [employer] Other XR knee LT 4V* Dictation Location: [place] [address] [employer] Other XR knee LT 4V* Transcribed By: NICKY 09/13/23 [facility] [employer] Other XR knee LT 4V* Dictated By: Donato Rockwell II, MD 09/13/23 [facility] [employer] Other XR knee LT 4V* Signed By: [employer] Other XR knee LT 4V* 09/13/23 [facility] [employer] Other XR knee LT 4V* [facility] Main [place] [address] [place] [address] XRay Report Signed Patient: Josephine Herndon MR#: [id number] : 1980 Acct:[id number] Age/Sex: 43 / F ADM Date: 09/13/23 Loc: XDUCLY Room: Type: [facility] Attending Dr: Shae Love APRN Copies [...] Donato Rockwell M.D.09/13/2023 11:19 AM Dictation Location: [place] [address] Transcribed By: [facility] 09/13/23 111 Dictated By: Donato Rockwell II, MD 09/13/23 1118 Signed By: 09/13/[address] [facility] [address] CHEST WO CONon 10-10-2022 CT [...] AMANDA CASSIDY Date: 2022-10-10 10:35 Normal [facility] Covid-19 PCR (CVDTBH)on SARS-CoV-2 (COVID-19) RNA RAYMOND+probe Ql (Unsp spec) Not detected Normal NOT DETECTED [facility] Comment on above: Result Comment: [...] for this test is supported by the [place] of Health and Human Service's declaration that [...] longer be used). Performed By: #### C [facility] #### [facility] [address] [place] [address] CHEST WO CONon [...] by: BELIA HENDRICKS Date: 2022-09-01 09:55 Normal [facility] MAMM SCREEN 3D GUSTAVO CADon 09-01-2022 MAMM SCREEN 3D GUSTAVO CAD Patient: JOSEPHINE HERNDON Exam Date: 09/01/2022 : 1980 Gender:F Ordering : DR ANGELICA DE . Admission #: [id number] Family : Order #: [id number] CLICK HERE TO VIEW EXAM RADIOLOGY REPORT [...] bladder cancer at age 59. LOCATION: [facility] BREAST COMPOSITION: Scattered areas fibroglandular [...] MD on 09/01/2022 at 09:32 Normal [facility] PAP ACOG PANEL 2: 21 to 29on 06-02-2022 . . Normal [facility] Comment on above: Result Comment: Perf ormed at: WB Performed By: #### [id number] #### [facility] [address] [place] [address] Dr. Les Bryan Age Gdln ACOG Testing 30-65 [facility] Comment on above: Performed By: #### [id number] #### [facility] [address] [place] [address] Dr. Les Bryan DIAGNOSIS: Comment [facility] Comment on above: Result Comment: NEGA TIVE FOR INTRAEPITHELIAL LESION OR MALIGNANCY. Performed at: WB Performed By: #### [id number] #### [facility] [address] [place] [address] Dr. Les Bryan HPV Aptima Negative Normal [facility] Comment on above: Result Comment: This nucleic acid amplification test detects fourteen high-risk HPV types (16,18,31,33,35,39,45,51,52,56,58,59,66,68) without differentiation. Performed at: =G Performed By: #### [id number] #### [facility] [address] [place] [address] Dr. Les Bryan Methodology: Comment [facility] Comment on above: Result Comment: This liquid based ThinPrep(R) pap test was screened with the use of an image guided system. Performed at: WB Performed By: #### [id number] #### [facility] [address] [place] [address] Dr. Les Bryan Note: Comment [facility] Comment on above: Result Comment: The Pap smear is a screening test designed to aid in the detection of premalignant and malignant conditions of the uterine cervix. It is not a diagnostic procedure and should not be used as the sole means of detecting cervical cancer. Both false-positive and false-negative reports do occur. . Performed at: WB Performed By: #### [id number] #### [facility] [address] [place] [address] Dr. Les Bryan Performed by: Comment Normal [facility] Comment on above: Result Comment: Bella Cuevas, Cleaners (ASCP) Performed at: WB Performed By: #### [id number] #### [facility] [address] [place] [address] [address] Les Bryan Specimen adequacy: Comment Normal [facility] Comment on above: Result Comment: Sati sfactory for evaluation. Endocervical and/or squamous metaplastic cells (endocervical component) are present. Performed at: WB Performed By: #### [id number] #### [facility] [address] [place] [address] [address] Les Bryan General Surgery Office/Clini c [...] Primary malignant neoplasm of bladder: Father. Normal [facility] Comment on above: Result Comment: Elec tronically Signed By: YOLY AKBAR, Jl Nieves\.br\Date and Time Signed: 05/14/22 18:35 EDT Ambulatory Visit Summaryon 0 05-12-2022 Ambulatory Visit Summary JOSEHPINE HERNDON :1980 Visit Date:05/12/2022 Ambulatory Visit Instructions [...] longer receiving treatment for. Migraine Psoriasis Normal [facility] General Surgery Office/Clini c Noteon 05-12-2022 [...] Primary malignant neoplasm of bladder: Father. Normal [facility] Comment on above: Result Comment: Elec tronically Signed By: YOLY AKBAR, Jl Nieves\.br\Date and Time Signed: 05/12/22 16:00 EDT Pathology Noteon 05-08-2022 Pathology Note [id number] #[id number] Normal [facility] Ambulatory Visit Summaryon 0 05-03-2022 Ambulatory [...] Jl FREDERICK MD Where: General Surgery Nil/Said [facility] Ambulatory Visit Summaryon 0 04-21-2022 Ambulatory Visit [...] With: Jl FREDERICK MD Where: General Surgery [facility] HEPATITIS PANEL, ACUTEon HBsAg Screen Negative Normal Negative [facility] Comment on above: Performed By: #### H EPACUT #### [facility] [address] [place] [address] Dr. Les Bryan HCV AB 0.2 s/co ratio Normal 0.0-0.9 [facility] Comment on above: Performed By: #### H EPACUT #### [facility] [address] [place] [address] Dr. Les Bryan Hep A Ab, IgM Negative Normal Negative [facility] Comment on above: Performed By: #### H EPACUT #### [facility] [address] [place] [address] Dr. Les Bryan Hep B Core Ab, IgM Negative Normal Negative [facility] Comment on above: Performed By: #### H EPACUT #### [facility] [address] [place] [address] Dr. Les Bryan Interpretation: Comment Normal [facility] Comment on above: Result Comment: Nega tive Not infected with HCV, unless recent infection is suspected or other evidence exists to indicate HCV infection. Performed By: #### H EPACUT #### [facility] [address] [place] [address] Dr. Les Bryan INSULINon 04-18-2022 Insulin 18.8 uIU/mL Normal 2.6-24.9 [facility] Comment on above: Performed By: #### I NSULIN #### [facility] [address] [place] [address] Dr. Les Bryan BILIRUBIN CONJUGATED (DIRECT )on 04-17-2022 BILI, CONJUGATED 0.1 mg/dL Normal 0.0-0.2 [facility] Comment on above: Performed By: #### RICARDO STEVENSON #### [facility] [address] [place] [address] Dr. Les Bryan BNPon 04-17-2022 Natriuretic peptide B (Bld) [Mass/Vol] 12.0 pg/mL Normal <=450.0 [facility] Comment on above: Performed By: #### RICARDO STEVENSON #### [facility] [address] [place] [address] Dr. Les Bryan CBC AUTO DIFFon 04-17-2022 BASO # 0.1 103/ul Normal 0.0-0.1 [facility] Comment on above: Performed By: #### C BC #### [facility] [address] [place] [address] [address] Les Bryan Basophils/100 WBC (Bld) 0.6 % Normal 0.2-2.0 [facility] Comment on above: Performed By: #### C BC #### [facility] [address] [place] [address] [address] Les Bryan EO # 0.3 103/ul Normal 0.0-0.7 [facility] Comment on above: Performed By: #### C BC #### [facility] [address] [place] [address] [address] Les Bryan Eosinophils/100 WBC (Bld) 3.0 % Normal 0.9-7.0 [facility] Comment on above: Performed By: #### C BC #### [facility] [address] [place] [address] Dr. Les Bryan Erythrocyte distribution width (RBC) [Ratio] 13.2 % Normal 11.0-15.0 [facility] Comment on above: Performed By: #### C BC #### [facility] [address] [place] [address] Dr. Les Bryan Hematocrit (Bld) [Volume fraction] 40.8 % Normal 36.0-48.0 [facility] Comment on above: Performed By: #### C BC #### [facility] [address] [place] [address] Dr. Les Bryan Hemoglobin (Bld) [Mass/Vol] 13.4 g/dL Normal 12.0-16.0 [facility] Comment on above: Performed By: #### C BC #### [facility] [address] [place] [address] Dr. Les Bryan IG # 0.07 10e3/ul Critically high 0.00-0.03 [facility] Comment on above: Performed By: #### C BC #### [facility] [address] [place] [address] [address] Les Bryan IG % 0.8 % Critically high 0.0-0.5 [facility] Comment on above: Performed By: #### C BC #### [facility] [address] [place] [address] Dr. Les Bryan LYMPH # 2.8 103/ul Normal 1.2-3.8 [facility] Comment on above: Performed By: #### C BC #### [facility] [address] [place] [address] Dr. eLs Bryan Lymphocytes/100 WBC (Bld) 31.7 % Normal 20.5-60.0 [facility] Comment on above: Performed By: #### C BC #### [facility] [address] [place] [address] Dr. Les Bryan MANUAL DIFF REQ NO Normal [facility] Comment on above: Performed By: #### C BC #### [facility] [address] [place] [address] Dr. Les Bryan MCH (RBC) [Entitic mass] 29.5 pg Normal 26.7-34.0 [facility] Comment on above: Performed By: #### C BC #### [facility] [address] [place] [address] Dr. Les Bryan MCHC (RBC) [Mass/Vol] 32.8 g/dL Normal 29.9-35.2 [facility] Comment on above: Performed By: #### C BC #### [facility] [address] [place] [address] Dr. Les Bryan MCV (RBC) [Entitic vol] 89.9 fL Normal 81.0-99.0 [facility] Comment on above: Performed By: #### C BC #### [facility] [address] [place] [address] Dr. Les Bryan MONO # 0.4 103/ul Normal 0.3-0.8 [facility] Comment on above: Performed By: #### C BC #### [facility] [address] [place] [address] Dr. Les Bryan Monocytes/100 WBC (Bld) 4.7 % Normal 1.7-12.0 [facility] Comment on above: Performed By: #### C BC #### [facility] [address] [place] [address] [address] Les Bryan NEUT # 5.3 103/ul Normal 1.4-6.5 [facility] Comment on above: Performed By: #### C BC #### [facility] [address] [place] [address] [address] Les Bryan Neutrophils/100 WBC (Bld) 59.2 % Normal 43.0-75.0 [facility] Comment on above: Performed By: #### C BC #### [facility] [address] [place] [address] [address] Les Bryan Platelet mean volume (Bld) [Entitic vol] 9.1 fL Critically low 9.5-13.5 [facility] Comment on above: Performed By: #### C BC #### [facility] [address] [place] [address] [address] Les Bryan PLT 309 103/ul Normal 150-450 [facility] Comment on above: Performed By: #### C BC #### [facility] [address] [place] [address] [address] Les Bryan RBC 4.54 106/ul Normal 4.20-5.40 [facility] Comment on above: Performed By: #### C BC #### [facility] [address] [place] [address] [address] Les Bryan WBC 8.9 103/ul Normal 4.0-11.0 [facility] Comment on above: Performed By: #### C BC #### [facility] [address] [place] [address] [address] Les Bryan FREE T3on 04-17-2022 FREE T3 2.02 pg/mlL Critically low 2.18-3.98 [facility] Comment on above: Performed By: #### RICARDO STEVENSON #### [facility] [address] [place] [address] [address] Les Bryan FREE THYROXINE INDEX T7on FTI 2.07 Normal 1.30-4.50 [facility] Comment on above: Performed By: #### RICARDO STEVENSON #### [facility] [address] [place] [address] [address] Les Bryan T3U 30.0 % Normal 30.0-39.0 [facility] Comment on above: Performed By: #### RICARDO STEVENSON #### [facility] [address] [place] [address] [address] Les Bryan T4 [Mass/Vol] 6.90 ug/dL Normal 4.80-13.90 [facility] Comment on above: Performed By: #### RICARDO STEVENSON #### [facility] [address] [place] [address] [address] Les Bryan GLYCOHEMOGLOBIN A1Con 2021 ADA RECOMMENDATION SEE BELOW Normal [facility] Comment on above: Result Comment: ADA RECOMMENDED LIMIT 4.0 - 6.0 ADA THERAPEUTIC TARGET < 7.0 ACTION SUGGESTED > 7.0 Performed By: #### A 1C #### [facility] [address] [place] [address] Dr. Les Bryan Glucose [Mass/Vol] 120 mg/dL Normal [facility] Comment on above: Performed By: #### A 1C #### [facility] [address] [place] [address] [address] Les Bryan HbA1c (Bld) [Mass fraction] 5.8 % Normal 4.5-6.2 [facility] Comment on above: Performed By: #### A 1C #### [facility] [address] [place] [address] [address] Les Bryan IRONon 04-17-2022 Iron [Mass/Vol] 66.0 ug/dL Normal 50.0-170.0 [facility] Comment on above: Performed By: #### RICARDO STEVENSON #### [facility] [address] [place] [address] Dr. Les Bryan LIPID PROFILEon 04-17-2022 CHOL-HDL RATIO NORM SEE BELOW Normal [facility] Comment on above: Result Comment: 3.3 - 4.4 LOW RISK 4.4 - 7.1 AVERAGE RISK 7.1 - 11.0 MODERATE RISK >11.0 HIGH RISK Performed By: #### RICARDO STEVENSON #### [facility] [address] [place] [address] Dr. Les Bryan Cholesterol [Mass/Vol] 244 mg/dL Critically high <=200 [facility] Comment on above: Performed By: #### BARBER STEVENSONRO #### [facility] [address] [place] [address] Dr. Les Bryan Cholesterol in HDL [Mass/Vol] 55 mg/dL Normal 40-60 [facility] Comment on above: Performed By: #### BARBER STEVENSONRO #### [facility] [address] [place] [address] Dr. Les Bryan Cholesterol in LDL [Mass/Vol] 155.4 mg/dL Normal [facility] Comment on above: Performed By: #### BARBER STEVENSONRO #### [facility] [address] [place] [address] Dr. Les Bryan Cholesterol.total/Ch olesterol in HDL [Mass ratio] 4.4 {ratio} Normal [facility] Comment on above: Performed By: #### BARBER STEVENSONRO #### [facility] [address] [place] [address] Dr. Les Bryan HDL NORMAL > or = 60 mg/dl - LOW CARDIOVASCULAR RISK <40 mg/dl - HIGH CARDIOVASCULAR RISK Normal [facility] Comment on above: Performed By: #### BARBER STEVENSONRO #### [facility] [address] [place] [address] Dr. Les Bryan LDL CALC NORMAL SEE BELOW Normal [facility] Comment on above: Result Comment: <100 mg/dl OPTIMAL 100 - 129 mg/dl NEAR OR ABOVE OPTIMAL 130 - 159 mg/dl BORDERLINE HIGH 160 - 189 mg/dl HIGH >190 mg/dl VERY HIGH Performed By: #### BARBER STEVENSONRO #### [facility] [address] [place] [address] Dr. Les Bryan Triglyceride [Mass/Vol] 168 mg/dL Critically high <=150 [facility] Comment on above: Performed By: #### BARBER STEVENSONRO #### [facility] [address] [place] [address] Dr. Les Bryan VLDL CALC 33.6 mg/dL Normal [facility] Comment on above: Performed By: #### BARBER STEVENSONRO #### [facility] [address] [place] [address] Dr. Les Bryan PROF 14(COMP METB)on 022 Albumin [Mass/Vol] 3.9 g/dL Normal 3.4-5.0 [facility] Comment on above: Performed By: #### BARBER STEVENSONRO #### [facility] [address] [place] [address] Dr. Les Bryan Albumin/Globulin [Mass ratio] 0.9 {ratio} Normal [facility] Comment on above: Performed By: #### BARBER STEVENSONRO #### [facility] [address] [place] [address] Dr. Les Bryan ALP [Catalytic activity/Vol] 137 U/L Critically high 46-116 [facility] Comment on above: Performed By: #### BARBER STEVENSONRO #### [facility] [address] [place] [address] Dr. Les Bryan ALT [Catalytic activity/Vol] 104 U/L Critically high 14-59 [facility] Comment on above: Performed By: #### BARBER STEVENSONRO #### [facility] [address] [place] [address] Dr. Les Bryan Anion gap [Moles/Vol] 13.3 mmol/L Normal [facility] Comment on above: Performed By: #### BARBER STEVENSONRO #### [facility] [address] [place] [address] Dr. Les Bryan AST [Catalytic activity/Vol] 59 U/L Critically high 15-37 [facility] Comment on above: Performed By: #### BARBER STEVENSONRO #### [facility] [address] [place] [address] Dr. Les Bryan Bilirubin [Mass/Vol] 0.3 mg/dL Normal 0.2-1.0 [facility] Comment on above: Performed By: #### BARBER STEVENSONRO #### [facility] [address] [place] [address] Dr. Les Bryan Calcium [Mass/Vol] 9.0 mg/dL Normal 8.5-10.1 [facility] Comment on above: Performed By: #### BARBER STEVENSONRO #### [facility] [address] [place] [address] Dr. Les Bryan Chloride [Moles/Vol] 104 mmol/L Normal 98-107 [facility] Comment on above: Performed By: #### BARBER STEVENSONRO #### [facility] [address] [place] [address] Dr. Les Bryan CO2 [Moles/Vol] 25.0 mmol/L Normal 21.0-32.0 [facility] Comment on above: Performed By: #### BARBER STEVENSONRO #### [facility] [address] [place] [address] Dr. Les Bryan Creatinine [Mass/Vol] 0.70 mg/dL Normal 0.55-1.02 [facility] Comment on above: Performed By: #### BARBER STEVENSONRO #### [facility] [address] [place] [address] Dr. Les Bryan EGFR-AF LIBYAN 111 mL/min/1.73m2 Normal >=60 [facility] Comment on above: Performed By: #### Andi GUY UMICRO #### [facility] [address] [place] [address] Dr. Les Bryan EGFR-NON AF LIBYAN 92 mL/min/1.73m2 Normal >=60 [facility] Comment on above: Performed By: #### Andi GUY UMICRO #### [facility] [address] [place] [address] Dr. Les Bryan Globulin (S) [Mass/Vol] 4.3 g/dL Normal [facility] Comment on above: Performed By: #### BARBER STEVENSONRO #### [facility] [address] [place] [address] Dr. Les Bryan Glucose [Mass/Vol] 104 mg/dL Normal 74-106 [facility] Comment on above: Performed By: #### BARBER STEVENSONRO #### [facility] [address] [place] [address] Dr. Les Bryan Potassium [Moles/Vol] 4.3 mmol/L Normal 3.5-5.1 [facility] Comment on above: Performed By: #### SABINE STEVENSONICRO #### [facility] [address] [place] [address] Dr. Les Bryan Protein [Mass/Vol] 8.2 g/dL Normal 6.4-8.2 [facility] Comment on above: Performed By: #### BARBER STEVENSONRO #### [facility] [address] [place] [address] Dr. Les Bryan Sodium [Moles/Vol] 138 mmol/L Normal 136-145 [facility] Comment on above: Performed By: #### BARBER STEVENSONRO #### [facility] [address] [place] [address] Dr. Les Bryan Urea nitrogen [Mass/Vol] 10.0 mg/dL Normal 7.0-18.0 [facility] Comment on above: Performed By: #### BARBER STEVENSONRO #### [facility] [address] [place] [address] Dr. Les Bryan Urea nitrogen/Creatinine [Mass ratio] 14.3 mg/mg Normal [facility] Comment on above: Performed By: #### BARBER STEVENSONRO #### [facility] [address] [place] [address] Dr. Les Bryan TSHon 04-17-2022 TSH 4.067 uIU/mL Critically high 0.358-3.740 [facility] Comment on above: Performed By: #### T SH, DBIL, BNP, FT3, T7, LIPID, CMP #### [facility] [address] [place] [address] Dr. Les Bryan INSULINon 04-06-2022 Insulin 34.6 uIU/mL Critically high 2.6-24.9 [facility] Comment on above: Performed By: #### RICARDO STEVENSON #### [facility] [address] [place] [address] Dr. Les Bryan Physician Referralon 022 Physician Referral [phone] [id number] Normal [facility] T4 LABCORPon 04-06-2022 T4 [Mass/Vol] 6.7 ug/dL Normal 4.5-12.0 [facility] Comment on above: Performed By: #### [id number] #### [facility] [address] [place] [address] Dr. Les Bryan BNPon 04-05-2022 Natriuretic peptide B (Bld) [Mass/Vol] 18.0 pg/mL Normal <=450.0 [facility] Comment on above: Performed By: #### RICARDO STEVENSON #### [facility] [address] [place] [address] Dr. Les Bryan CBC AUTO DIFFon 04-05-2022 BASO # 0.1 103/ul Normal 0.0-0.1 [facility] Comment on above: Performed By: #### 4 [id number] #### [facility] [address] [place] [address] Dr. Les Bryan Basophils/100 WBC (Bld) 0.6 % Normal 0.2-2.0 [facility] Comment on above: Performed By: #### 4 [id number] #### [facility] [address] [place] [address] Dr. Les Bryan EO # 0.2 103/ul Normal 0.0-0.7 [facility] Comment on above: Performed By: #### 4 [id number] #### [facility] [address] [place] [address] Dr. Les Bryan Eosinophils/100 WBC (Bld) 1.9 % Normal 0.9-7.0 [facility] Comment on above: Performed By: #### 4 [id number] #### [facility] [address] [place] [address] Dr. Les Bryan Erythrocyte distribution width (RBC) [Ratio] 13.3 % Normal 11.0-15.0 [facility] Comment on above: Performed By: #### 4 [id number] #### [facility] [address] [place] [address] Dr. Les Bryan Hematocrit (Bld) [Volume fraction] 39.1 % Normal 36.0-48.0 [facility] Comment on above: Performed By: #### 4 [id number] #### [facility] [address] [place] [address] Dr. Les Bryan Hemoglobin (Bld) [Mass/Vol] 13.2 g/dL Normal 12.0-16.0 [facility] Comment on above: Performed By: #### 4 [id number] #### [facility] [address] [place] [address] Dr. Les Bryan IG # 0.08 10e3/ul Critically high 0.00-0.03 [facility] Comment on above: Performed By: #### 4 [id number] #### [facility] [address] [place] [address] Dr. Les Bryan IG % 0.8 % Critically high 0.0-0.5 [facility] Comment on above: Performed By: #### 4 [id number] #### [facility] [address] [place] [address] Dr. Les Bryan LYMPH # 3.0 103/ul Normal 1.2-3.8 [facility] Comment on above: Performed By: #### 4 [id number] #### [facility] [address] [place] [address] Dr. Les Bryan Lymphocytes/100 WBC (Bld) 31.4 % Normal 20.5-60.0 [facility] Comment on above: Performed By: #### 4 [id number] #### [facility] [address] [place] [address] Dr. Les Bryan MANUAL DIFF REQ NO Normal [facility] Comment on above: Performed By: #### 4 [id number] #### [facility] [address] [place] [address] Dr. Les Bryan MCH (RBC) [Entitic mass] 30.1 pg Normal 26.7-34.0 [facility] Comment on above: Performed By: #### 4 [id number] #### [facility] [address] [place] [address] Dr. Les Bryan MCHC (RBC) [Mass/Vol] 33.8 g/dL Normal 29.9-35.2 [facility] Comment on above: Performed By: #### 4 [id number] #### [facility] [address] [place] [address] Dr. Les Bryan MCV (RBC) [Entitic vol] 89.1 fL Normal 81.0-99.0 [facility] Comment on above: Performed By: #### 4 [id number] #### [facility] [address] [place] [address] Dr. Les Bryan MONO # 0.6 103/ul Normal 0.3-0.8 [facility] Comment on above: Performed By: #### 4 [id number] #### [facility] [address] [place] [address] Dr. Les Bryan Monocytes/100 WBC (Bld) 6.1 % Normal 1.7-12.0 [facility] Comment on above: Performed By: #### 4 [id number] #### [facility] [address] [place] [address] Dr. Les Bryan NEUT # 5.6 103/ul Normal 1.4-6.5 [facility] Comment on above: Performed By: #### 4 [id number] #### [facility] [address] [place] [address] Dr. Les Bryan Neutrophils/100 WBC (Bld) 59.2 % Normal 43.0-75.0 [facility] Comment on above: Performed By: #### 4 [id number] #### [facility] [address] [place] [address] Dr. Les Bryan Platelet mean volume (Bld) [Entitic vol] 9.0 fL Critically low 9.5-13.5 [facility] Comment on above: Performed By: #### 4 [id number] #### [facility] [address] [place] [address] Dr. Les Bryan PLT 286 103/ul Normal 150-450 [facility] Comment on above: Performed By: #### 4 [id number] #### [facility] [address] [place] [address] Dr. Les Bryan RBC 4.39 106/ul Normal 4.20-5.40 [facility] Comment on above: Performed By: #### 4 [id number] #### [facility] [address] [place] [address] Dr. Les Bryan WBC 9.5 103/ul Normal 4.0-11.0 [facility] Comment on above: Performed By: #### 4 [id number] #### [facility] [address] [place] [address] Dr. Les Bryan FREE T3on 04-05-2022 FREE T3 2.73 pg/mlL Normal 2.18-3.98 [facility] Comment on above: Performed By: #### RICARDO STEVENSON #### [facility] [address] [place] [address] Dr. Les Bryan FREE THYROXINE INDEX T7on FTI 2.08 Normal 1.30-4.50 [facility] Comment on above: Performed By: #### RICARDO STEVENSON #### [facility] [address] [place] [address] Dr. Les Bryan T3U 31.0 % Normal 30.0-39.0 [facility] Comment on above: Performed By: #### RICARDO STEVENSON #### [facility] [address] [place] [address] Dr. Les Bryan T4 [Mass/Vol] 6.70 ug/dL Normal 4.80-13.90 [facility] Comment on above: Result Comment: T4 t esting performed by [facility] Performed By: #### BARBER STEVENSONRO #### [facility] [address] [place] [address] Dr. Les Bryan GLYCOHEMOGLOBIN A1Con 2021 ADA RECOMMENDATION SEE BELOW Normal [facility] Comment on above: Result Comment: ADA RECOMMENDED LIMIT 4.0 - 6.0 ADA THERAPEUTIC TARGET < 7.0 ACTION SUGGESTED > 7.0 Performed By: #### 4 [id number] #### [facility] [address] [place] [address] Dr. Les Bryan Glucose [Mass/Vol] 120 mg/dL Normal [facility] Comment on above: Performed By: #### 4 [id number] #### [facility] [address] [place] [address] Dr. Les Bryan HbA1c (Bld) [Mass fraction] 5.8 % Normal 4.5-6.2 [facility] Comment on above: Performed By: #### 4 [id number] #### [facility] [address] [place] [address] Dr. Les Bryan IRONon 04-05-2022 Iron [Mass/Vol] 105.0 ug/dL Normal 50.0-170.0 [facility] Comment on above: Performed By: #### RICARDO STEVENSON #### [facility] [address] [place] [address] Dr. Les Bryan LIPID PROFILEon 04-05-2022 CHOL-HDL RATIO NORM SEE BELOW Normal [facility] Comment on above: Result Comment: 3.3 - 4.4 LOW RISK 4.4 - 7.1 AVERAGE RISK 7.1 - 11.0 MODERATE RISK >11.0 HIGH RISK Performed By: #### BARBER STEVENSONRO #### [facility] [address] [place] [address] Dr. Les Bryan Cholesterol [Mass/Vol] 217 mg/dL Critically high <=200 [facility] Comment on above: Performed By: #### BARBER STEVENSONRO #### [facility] [address] [place] [address] Dr. Les Bryan Cholesterol in HDL [Mass/Vol] 49 mg/dL Normal 40-60 [facility] Comment on above: Performed By: #### Andi GUY UMICRO #### [facility] [address] [place] [address] [address] Les Bryan Cholesterol in LDL [Mass/Vol] 128.2 mg/dL Normal [facility] Comment on above: Performed By: #### Andi GUY UMICRO #### [facility] [address] [place] [address] Dr. Les Bryan Cholesterol.total/Ch olesterol in HDL [Mass ratio] 4.4 {ratio} Normal [facility] Comment on above: Performed By: #### Andi GUY UMICRO #### [facility] [address] [place] [address] Dr. Les Bryan HDL NORMAL > or = 60 mg/dl - LOW CARDIOVASCULAR RISK <40 mg/dl - HIGH CARDIOVASCULAR RISK Normal [facility] Comment on above: Performed By: #### Andi GUY UMICRO #### [facility] [address] [place] [address] Dr. Les Bryan LDL CALC NORMAL SEE BELOW Normal [facility] Comment on above: Result Comment: <100 mg/dl OPTIMAL 100 - 129 mg/dl NEAR OR ABOVE OPTIMAL 130 - 159 mg/dl BORDERLINE HIGH 160 - 189 mg/dl HIGH >190 mg/dl VERY HIGH Performed By: #### Andi GUY UMICRO #### [facility] [address] [place] [address] Dr. Les Bryan Triglyceride [Mass/Vol] 199 mg/dL Critically high <=150 [facility] Comment on above: Performed By: #### Andi GUY UMICRO #### [facility] [address] [place] [address] Dr. Les Bryan VLDL CALC 39.8 mg/dL Normal [facility] Comment on above: Performed By: #### Andi GUY UMICRO #### [facility] [address] [place] [address] Dr. Les Bryan PROF 14(COMP METB)on 022 Albumin [Mass/Vol] 3.8 g/dL Normal 3.4-5.0 [facility] Comment on above: Performed By: #### RICARDO STEVENSON #### [facility] [address] [place] [address] Dr. Les Bryan Albumin/Globulin [Mass ratio] 0.9 {ratio} Normal [facility] Comment on above: Performed By: #### RICARDO STEVENSON #### [facility] [address] [place] [address] Dr. Les Bryan ALP [Catalytic activity/Vol] 122 U/L Critically high 46-116 [facility] Comment on above: Performed By: #### RICARDO STEVENSON #### [facility] [address] [place] [address] Dr. Les Bryan ALT [Catalytic activity/Vol] 90 U/L Critically high 14-59 [facility] Comment on above: Performed By: #### RICARDO STEVENSON #### [facility] [address] [place] [address] Dr. Les Bryan Anion gap [Moles/Vol] 13.5 mmol/L Normal [facility] Comment on above: Performed By: #### RICARDO STEVENSON #### [facility] [address] [place] [address] Dr. Les Bryan AST [Catalytic activity/Vol] 63 U/L Critically high 15-37 [facility] Comment on above: Performed By: #### RICARDO STEVENSON #### [facility] [address] [place] [address] Dr. Les Bryan Bilirubin [Mass/Vol] 0.4 mg/dL Normal 0.2-1.0 [facility] Comment on above: Performed By: #### RICARDO STEVENSON #### [facility] [address] [place] [address] Dr. Les Bryan Calcium [Mass/Vol] 9.3 mg/dL Normal 8.5-10.1 [facility] Comment on above: Performed By: #### RICARDO STEVENSON #### [facility] [address] [place] [address] [address] Les Bryan Chloride [Moles/Vol] 103 mmol/L Normal 98-107 [facility] Comment on above: Performed By: #### BARBER STEVENSONRO #### [facility] [address] [place] [address] Dr. Les Bryan CO2 [Moles/Vol] 24.6 mmol/L Normal 21.0-32.0 [facility] Comment on above: Performed By: #### Andi GUY UMDARCIERO #### [facility] [address] [place] [address] Dr. Les Bryan Creatinine [Mass/Vol] 0.70 mg/dL Normal 0.55-1.02 [facility] Comment on above: Performed By: #### BARBER STEVENSONRO #### [facility] [address] [place] [address] Dr. Les Bryan EGFR-AF LIBYAN >60 Normal >=60 [facility] Comment on above: Performed By: #### BARBER STEVENSONRO #### [facility] [address] [place] [address] Dr. Les Bryan EGFR-NON AF LIBYAN >60 Normal >=60 [facility] Comment on above: Performed By: #### BARBER STEVENSONRO #### [facility] [address] [place] [address] Dr. Les Bryan Globulin (S) [Mass/Vol] 4.1 g/dL Normal [facility] Comment on above: Performed By: #### BARBER STEVENSONRO #### [facility] [address] [place] [address] Dr. Les Bryan Glucose [Mass/Vol] 110 mg/dL Critically high 74-106 T [facility] Comment on above: Performed By: #### BARBER STEVENSONRO #### [facility] [address] [place] [address] Dr. Les Bryan Potassium [Moles/Vol] 4.1 mmol/L Normal 3.5-5.1 [facility] Comment on above: Performed By: #### Andi GUY UMICRO #### [facility] [address] [place] [address] Dr. Les Bryan Protein [Mass/Vol] 7.9 g/dL Normal 6.4-8.2 [facility] Comment on above: Performed By: #### E BROOKS UMICRO #### [facility] [address] [place] [address] Dr. Lse Bryan Sodium [Moles/Vol] 137 mmol/L Normal 136-145 [facility] Comment on above: Performed By: #### E BROOKS UMICRO #### [facility] [address] [place] [address] Dr. Les Bryan Urea nitrogen [Mass/Vol] 9.0 mg/dL Normal 7.0-18.0 [facility] Comment on above: Performed By: #### Andi GUY UMICRO #### [facility] [address] [place] [address] Dr. Les Bryan Urea nitrogen/Creatinine [Mass ratio] 12.9 mg/mg Normal [facility] Comment on above: Performed By: #### Andi GUY UMICRO #### [facility] [address] [place] [address] Dr. Les Bryan TSHon 04-05-2022 TSH 3.572 uIU/mL Normal 0.358-3.740 [facility] Comment on above: Performed By: #### Andi GUY UMICRO #### [facility] [address] [place] [address] Dr. Les Bryan TSH RANGE SEE BELOW Normal [facility] Comment on above: Result Comment: <0.3 4 UIU/ml HYPERTHYROID 0.34-5.60 UIU/ml EUTHYROID >5.60 UIU/ml HYPOTHYROID Performed By: #### Andi GUY UMICRO #### [facility] [address] [place] [address] Dr. Les Bryan XR KUB 1 VIEWon [...] AMANDA CASSIDY Date: 2022-02-27 15:05 Normal [facility] AMYLASEon 02-25-2022 Amylase [Catalytic activity/Vol] 34 U/L Normal 25-115 [facility] Comment on above: Performed By: #### 4 [id number] #### [facility] [address] [place] [address] Dr. Les Bryan CBC AUTO DIFFon 02-25-2022 BASO # 0.0 103/ul Normal 0.0-0.1 [facility] Comment on above: Performed By: #### C BC #### [facility] [address] [place] [address] Dr. Les Bryan Basophils/100 WBC (Bld) 0.4 % Normal 0.2-2.0 [facility] Comment on above: Performed By: #### C BC #### [facility] [address] [place] [address] Dr. Les Bryan EO # 0.3 103/ul Normal 0.0-0.7 [facility] Comment on above: Performed By: #### C BC #### [facility] [address] [place] [address] Dr. Les Bryan Eosinophils/100 WBC (Bld) 3.6 % Normal 0.9-7.0 [facility] Comment on above: Performed By: #### C BC #### [facility] [address] [place] [address] Dr. Les Bryan Erythrocyte distribution width (RBC) [Ratio] 13.1 % Normal 11.0-15.0 [facility] Comment on above: Performed By: #### C BC #### [facility] [address] [place] [address] [address] Les Bryan Hematocrit (Bld) [Volume fraction] 40.6 % Normal 36.0-48.0 [facility] Comment on above: Performed By: #### C BC #### [facility] [address] [place] [address] [address] Les Bryan Hemoglobin (Bld) [Mass/Vol] 13.3 g/dL Normal 12.0-16.0 [facility] Comment on above: Performed By: #### C BC #### [facility] [address] [place] [address] Dr. Les Bryan IG # 0.06 10e3/ul Critically high 0.00-0.03 [facility] Comment on above: Performed By: #### C BC #### [facility] [address] [place] [address] Dr. Les Bryan IG % 0.6 % Critically high 0.0-0.5 [facility] Comment on above: Performed By: #### C BC #### [facility] [address] [place] [address] Dr. Les Bryan LYMPH # 3.6 103/ul Normal 1.2-3.8 [facility] Comment on above: Performed By: #### C BC #### [facility] [address] [place] [address] Dr. Les Bryan Lymphocytes/100 WBC (Bld) 38.2 % Normal 20.5-60.0 [facility] Comment on above: Performed By: #### C BC #### [facility] [address] [place] [address] Dr. Les Bryan MANUAL DIFF REQ NO Normal [facility] Comment on above: Performed By: #### C BC #### [facility] [address] [place] [address] Dr. Les Bryan MCH (RBC) [Entitic mass] 29.7 pg Normal 26.7-34.0 [facility] Comment on above: Performed By: #### C BC #### [facility] [address] [place] [address] Dr. Les Bryan MCHC (RBC) [Mass/Vol] 32.8 g/dL Normal 29.9-35.2 [facility] Comment on above: Performed By: #### C BC #### [facility] [address] [place] [address] [address] Les Bryan MCV (RBC) [Entitic vol] 90.6 fL Normal 81.0-99.0 [facility] Comment on above: Performed By: #### C BC #### [facility] [address] [place] [address] Dr. Les Bryan MONO # 0.5 103/ul Normal 0.3-0.8 [facility] Comment on above: Performed By: #### C BC #### [facility] [address] [place] [address] Dr. Les Bryan Monocytes/100 WBC (Bld) 5.4 % Normal 1.7-12.0 [facility] Comment on above: Performed By: #### C BC #### [facility] [address] [place] [address] Dr. Les Bryan NEUT # 4.9 103/ul Normal 1.4-6.5 [facility] Comment on above: Performed By: #### C BC #### [facility] [address] [place] [address] Dr. Les Bryan Neutrophils/100 WBC (Bld) 51.8 % Normal 43.0-75.0 [facility] Comment on above: Performed By: #### C BC #### [facility] [address] [place] [address] [address] Les Bryan Platelet mean volume (Bld) [Entitic vol] 9.2 fL Critically low 9.5-13.5 [facility] Comment on above: Performed By: #### C BC #### [facility] [address] [place] [address] Dr. Les Bryan PLT 335 103/ul Normal 150-450 [facility] Comment on above: Performed By: #### C BC #### [facility] [address] [place] [address] Dr. Les Bryan RBC 4.48 106/ul Normal 4.20-5.40 [facility] Comment on above: Performed By: #### C BC #### [facility] [address] [place], [place] [address] Dr. Les Bryan WBC 9.4 103/ul Normal 4.0-11.0 [facility] Comment on above: Performed By: #### C BC #### [facility] [address] [place], [place] [address] ABD/PELVIS WO CONon [...] IWONA ALVAREZZ Date: 2022-02-25 19:05 Normal [facility] ER URINE PROFILEon 2 Bilirubin Ql (U) Negative Normal NEGATIVE [facility] Comment on above: Performed By: #### E RUR, UMICRO #### [facility] [address] [place] [address] [address] Les Bryan Clarity (U) CLEAR Normal CLEAR [facility] Comment on above: Performed By: #### E RUR, UMICRO #### [facility] [address] [place] [address] [address] Les Bryan Color (U) YELLOW Normal YELLOW [facility] Comment on above: Performed By: #### E RUR, UMICRO #### [facility] [address] [place] [address] Dr. Les MOY A micrscopic examination will be performed if indicated. Normal [facility] Comment on above: Performed By: #### E RUR, UMICRO #### [facility] [address] [place] [address] [address] Les Bryan Glucose Ql (U) Negative Normal NEGATIVE [facility] Comment on above: Performed By: #### E RUR, UMICRO #### [facility] [address] [place] [address] Dr. Les Bryan Hemoglobin Ql (U) LARGE Abnormal NEGATIVE [facility] Comment on above: Performed By: #### E RUR, UMICRO #### [facility] [address] [place] [address] [address] Les Bryan Ketones Ql (U) Negative Normal NEGATIVE [facility] Comment on above: Performed By: #### E RUR, UMICRO #### [facility] [address] [place] [address] Dr. Les Bryan LEUKOCYTES TRACE Abnormal NEGATIVE [facility] Comment on above: Performed By: #### E RUR, UMICRO #### [facility] [address] [place] [address] [address] Les Bryan Nitrite Ql (U) Negative Normal NEGATIVE [facility] Comment on above: Performed By: #### RICARDO STEVENSON #### [facility] [address] [place] [address] Dr. Les Bryan pH (U) 7.0 [pH] Normal 5-9 [facility] Comment on above: Performed By: #### RICARDO STEVENSON #### [facility] [address] [place] [address] Dr. Les Bryan Protein (U) [Mass/Vol] 30 mg/dL Abnormal NEGATIVE/ TRACE [facility] Comment on above: Performed By: #### RICARDO STEVENSON #### [facility] [address] [place] [address] Dr. Les Bryan SPEC GRAVITY 1.025 Normal 1.005-<=1.025 [facility] Comment on above: Performed By: #### RICARDO STEVENSON #### [facility] [address] [place] [address] Dr. Les Bryan UR MICRO IND INDICATED Normal [facility] Comment on above: Performed By: #### RICARDO STEVENSON #### [facility] [address] [place] [address] Dr. Les Bryan Urobilinogen Qn (U) 0.2 {Racquel'U}/dL Normal 0.2 - 1. 0 [facility] Comment on above: Performed By: #### RICARDO STEVENSON #### [facility] [address] [place] [address] Dr. Les Bryan LIPASEon 02-25-2022 Lipase [Catalytic activity/Vol] 82.0 U/L Normal 73.0-393.0 [facility] Comment on above: Performed By: #### 4 [id number] #### [facility] [address] [place] [address] Dr. Les Bryan PROF 14(COMP METB)on Albumin [Mass/Vol] 3.7 g/dL Normal 3.4-5.0 [facility] Comment on above: Performed By: #### [id number] #### [facility] [address] [address] [address] Les Bryan Albumin/Globulin [Mass ratio] 0.9 {ratio} Normal [facility] Comment on above: Performed By: #### [id number] #### [facility] [address] [address] [address] Les Bryan ALP [Catalytic activity/Vol] 129 U/L Critically high 46-116 [facility] Comment on above: Performed By: #### [id number] #### [facility] [address] [address] [address] Les Bryan ALT [Catalytic activity/Vol] 86 U/L Critically high 14-59 [facility] Comment on above: Performed By: #### [id number] #### [facility] [address] [place] [address] Dr. Les Bryan Anion gap [Moles/Vol] 15.3 mmol/L Normal [facility] Comment on above: Performed By: #### [id number] #### [facility] [address] [address] [address] Les Bryan AST [Catalytic activity/Vol] 51 U/L Critically high 15-37 [facility] Comment on above: Performed By: #### [id number] #### [facility] [address] [address] [address] Les Bryan Bilirubin [Mass/Vol] 0.2 mg/dL Normal 0.2-1.0 [facility] Comment on above: Performed By: #### 4 [id number] #### [facility] [address] [address] [address] Les Bryan Calcium [Mass/Vol] 8.4 mg/dL Critically low 8.5-10.1 [facility] Comment on above: Performed By: #### 4 [id number] #### [facility] [address] [address] [address] Les Bryan Chloride [Moles/Vol] 103 mmol/L Normal 98-107 [facility] Comment on above: Performed By: #### 4 [id number] #### [facility] [address] [place] [address] Dr. Les Bryan CO2 [Moles/Vol] 26.2 mmol/L Normal 21.0-32.0 [facility] Comment on above: Performed By: #### 4 [id number] #### [facility] [address] [place] [address] Dr. Les Bryan Creatinine [Mass/Vol] 0.72 mg/dL Normal 0.55-1.02 [facility] Comment on above: Performed By: #### 4 [id number] #### [facility] [address] [place] [address] Dr. Les Bryan EGFR-AF LIBYAN >60 Normal >=60 [facility] Comment on above: Performed By: #### 4 [id number] #### [facility] [address] [place] [address] Dr. Les Bryan EGFR-NON AF LIBYAN >60 Normal >=60 [facility] Comment on above: Performed By: #### 4 [id number] #### [facility] [address] [place] [address] Dr. Les Bryan Globulin (S) [Mass/Vol] 4.2 g/dL Normal [facility] Comment on above: Performed By: #### 4 [id number] #### [facility] [address] [place] [address] Dr. Les Bryan Glucose [Mass/Vol] 121 mg/dL Critically high 74-106 T [facility] Comment on above: Performed By: #### 4 [id number] #### [facility] [address] [place] [address] Dr. Les Bryan Potassium [Moles/Vol] 3.5 mmol/L Normal 3.5-5.1 [facility] Comment on above: Performed By: #### 4 [id number] #### [facility] [address] [place] [address] Dr. Les Bryan Protein [Mass/Vol] 7.9 g/dL Normal 6.1-8.2 [facility] Comment on above: Performed By: #### 4 [id number] #### [facility] [address] [place] [address] Dr. Les Bryan Sodium [Moles/Vol] 141 mmol/L Normal 136-145 [facility] Comment on above: Performed By: #### 4 [id number] #### [facility] [address] [place] [address] Dr. Les Bryan Urea nitrogen [Mass/Vol] 14.0 mg/dL Normal 7.0-18.0 [facility] Comment on above: Performed By: #### 4 [id number] #### [facility] [address] [place] [address] Dr. Les Bryan Urea nitrogen/Creatinine [Mass ratio] 19.4 mg/mg Normal [facility] Comment on above: Performed By: #### 4 [id number] #### [facility] [address] [place] [address] Dr. Les Bryan URINE MICROSCOPIC ONLYon BACTERIA TRACE Abnormal NONE SEEN [facility] Comment on above: Performed By: #### Andi GUY UMICRO #### [facility] [address] [place] [address] Dr. Les Bryan Bacteria identified Cx Nom (U) NOT INDICATED Normal [facility] Comment on above: Performed By: #### Andi GUY UMICRO #### [facility] [address] [place] [address] Dr. Les Bryan CAST NONE SEEN Normal NONE SEEN [facility] Comment on above: Performed By: #### Andi GUY UMICRO #### [facility] [address] [place] [address] Dr. Les Bryan Crystals LM Nom (Urine sed) NONE SEEN Normal NONE SEEN [facility] Comment on above: Performed By: #### Andi GUY UMICRO #### [facility] [address] [place] [address] Dr. Les Bryan Epithelial cells LM Ql (Urine sed) MODERATE Abnormal NONE SEEN /RARE [facility] Comment on above: Performed By: #### Andi GUY UMICRO #### [facility] [address] [address] [address] Les Bryan MUCOUS NONE SEEN Normal NONE SEEN [facility] Comment on above: Performed By: #### RICARDO STEVENSON #### [facility] [address] [address] [address] Les Bryan RBC 20-50 Abnormal 0-2 [facility] Comment on above: Result Comment: cren ated RBCs Performed By: #### RICARDO STEVENSON #### [facility] [address] [address] [address] Les Bryan WBC 2-5 Abnormal NONE SEEN [facility] Comment on above: Performed By: #### RICARDO STEVENSON #### [facility] [address] [address] [address] Les Bryan Vital Signs Date Time Vital Sign Value Performing Clinician Facility 09-13-2023 10:30-0500 Body height 162.56 cm Shae Love Other [employer] [facility] Other 09-13-2023 10:30-0500 Body mass index (BMI) [Ratio] 23.14 kg/m2 Shea Love Other [employer] Other 09-13-2023 10:30-0500 Body temperature 98.4 [degF] Shae Love Other [facility] [facility] Other 09-13-2023 10:30-0500 Body weight 61.15 kg Shae Love Other [employer] Other 09-13-2023 10:30-0500 Respiratory rate 18 /min Shae Love Other [employer] Other 09-13-2023 10:30-0500 SaO2% (BldA) [Mass fraction] 99 % Shae Love Other [employer] Other 04-21-2022 09:07-0400 Blood Pressure Location Jl BRIDGESL [facility] [place] 04-21-2022 09:07-0400 Diastolic blood pressure 86 mm[Hg] Jl BRIDGESL [facility] [place] 04-21-2022 09:07-0400 Heart rate 92 /min Jl NILL [facility] [place] 04-21-2022 09:07-0400 Respiratory rate 16 /min Jl BRIDGESL [facility] [place] 04-21-2022 09:07-0400 Systolic blood pressure 127 mm[Hg] Jl BRIDGESL [facility] Encounters Encounter Date Encounter Type Care Provider Facility Start: 06-12-2024 End: 06-12-2024 Emergency department patient visit [facility] Start: 09-13-2023 Office outpatient ne w 20 minutes Shae Love [facility] Start: 09-13-2023 End: 09-13-2023 ambulatory Shae Love [facility] [employer] Other Start: 09-13-2023 End: 09-13-2023 Patient encounter procedure [employer] Shae Love Work Phone: [facility] Work Phone: Start: 10-09-2022 End: 10-10-[address] ANGELICA DE Facility:[facility] Start: 09-04-2022 End: 09-04-[address] ANGELICA DE Facility:[facility] Start: 09-01-2022 End: 09-02-[address] ANGELICA DE Facility:[facility] Start: 05-30-2022 End: 05-30-[address] ANGELICA DE Facility:[facility] Start: 05-12-2022 End: 05-12-2022 Patient encounter procedure Jl Nieves NILL [facility] [place] Start: 05-03-2022 End: 05-03-2022 Patient encounter procedure Jl Nieves NILL [facility] [place] Start: 04-21-2022 End: 04-21-2022 Patient encounter procedure Jl Nieves YOLY [facility] [place] Start: 04-20-[address] ANGELICA DE Facility [...] FREDERICK Payers Date Payer Category Payer Unknown [id number] 1980 Unknown [id number] 2.16.84 [id number] 1980 Unknown [id number] 2.16.84 [id number] 1980 Unknown [id number] 2.16.84 [id number] 1979 Unknown [id number] 2.16.84 [id number] 1979 Unknown [id number] 2.16.84 [id number] 1979 Unknown [id number] 2.16.84 [id number] 1979 Unknown [id number] 2.16.84 [id number] 1979 Unknown [id number] 2.16.84 [id number] 1979 Unknown [id number] 2.16.84 [id number] 1979 Unknown [id number] 2.16.8 [id number] 1960 Self-pay 1960 Unknown [id number] Unknown [id number] 2.16.8 [id number] Social History Date Type Detail Facility Start: 04-21-2022 Tobacco smoking status Ex-smoker (fi nding) [facility] Tobacco smoking status Never [facility] Sex Assigned At Female [facility] Start: 1980 Sex Assigned At Female F [facility] Functional Status Date Assessment Result Facility 04-21-2022 Functional Status N/A [facility] [place] Evaluation note 09-13-2023 Note Date & Type [...] understanding and is agreeable to treatment plan [employer] Other Clinical Note 04-21-2022 Note Date & [...] Mother. Primary malignant neoplasm of bladder: Father. [facility] Comment on above: Result Comment: Elec tronically Signed By: Jl FREDERICK MD\.br\Date and Time Signed: 04/21/22 09:48 EDT Evaluation + Plan note Note Date & Type Note Facility Evaluation + Plan note Future Appointments Appointment Date:05/03/2022 03:00:00 PM Scheduled Provider:Jl FREDERICK MD Location:[facility] Appointment Type: Procedure 30 [facility] [place] Evaluation + Plan note Note Date & Type Note Facility Evaluation + Plan note Future Appointments Appointment Date:05/12/2022 03:40:00 PM Scheduled Provider:Jl FREDERICK MD Location:[facility] Appointment Type: Post Op 15 [facility] [place] Evaluation note Note Date & Type Note Facility Evaluation note No assessment information availa [facility] Work Phone: History general Narrative - Reported Note Date & Type Note Facility History general Narrative - Reported Type Medical History Anxiety disorder Medical History chronic depression Medical History thyriod Surgical History LEAP [employer] Other Hospital course Narrative Note Date & Type Note Facility Hospital course Narrative No data available for this section [facility] [place] [facility] Discharge instructions Note Date & Type Note Facility Hospital Discharge instructions No data available for this section [facility] [place] Progress note Note Date & Type Note Facility Progress note No data available for this section [facility] [place] Summary Purpose Family History No Family History [...] section and content) DATE CREATED AUTHOR 05/16/2022 [facility] DATE CREATED AUTHOR AUTHOR'S ORGANIZ ATION 10/20/2022 [facility] DATE CREATED AUTHOR AUTHOR'S ORGANIZ ATION 12/07/2023 [facility] DATE CREATED AUTHOR AUTHOR'S ORGANIZ ATION 06/15/2024 [facility] REASON FOR VISIT (unrecogniz ed [...] BE BASED ON THE PRIMARY CLINICAL RECORDS. [employer] [facility]. provides no warranty or guarantee of the accuracy or completeness of information in this document.
== END 2024-11-24 09:28 | disposition home or self-care (01) ==
LOC: CT 09:27
PROVIDERS: PCP Family Medicine; Visit Provider Family Medicine
DX: R91.8 Other nonspecific abnormal finding of lung field (principal)
CPT/HCPCS: 71260; Q9967

== ENCOUNTER 2024-12-03 13:55 | Outpatient (OUT) | payer BC, SELFPAY ==
--- NOTE | 2024-12-03 13:59 | US_ITS ---
[facility] [address] [id number] Patient Name: LUCIA HERNDON MRN: [id number] date: 1980 Sex: F Assigned Patient Location: US Current Patient Location: US Accession/Order Number: [id number] Exam Date: 12/03/2024 14:00 Report Date: 12/03/2024 14:35 At the request of: JODI FREDERICK Procedure: US extremity nonvascular LT EXAMINATION: US extremity nonvascular LT HISTORY: Localized Swelling Left Lower Limb ; lateral ankle swelling for 3 weeks history of surgery COMPARISON: No relevant comparison available. FINDINGS: 1. Geographic shaped hypoechoic area within the subcutaneous tissues overlying the lateral malleolus, 3.1 x 1.5 1.4 cm. No appreciable internal blood flow on color Doppler. US/US extremity nonvascular LT IMPRESSION: 1. Suspect postoperative hematoma versus seroma. Abscess cannot be completely excluded. Electronically authenticated by: AMANDA CASSIDY Date: 12/03/2024 14:35
--- OUTSIDE RECORDS SUMMARY | 2024-12-03 14:16 | XMS_ITS | CCD ---
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 Name Role Phone Angelica De Primary Care [...] DR DOMINGUEZ Attending Unavailable JEREMÍAS, DR DOMINGUEZ Admjames Unavailable JEREMÍAS, DR DOMINGUEZ Primary Care Unavailable [...] Love Attending Unavailable Shae Love Admitting Unavailable Jl FREDERICK Attending Unavailable Allergies Allergy Classification Reported Allergen(s) Allergy Type Date of Onset Reaction(s) Facility (7 sources) Latex; Translations: [Latex] Drug allergy 3 Eruption of skin (disorder), rash [facility] (6 sources) Sulfamethoxazole / Trimethoprim; Translations: [sulfamethoxazole-tr imethoprim] Drug Allergy Weal (disorder), hives [facility] (2 sources) natural latex rubber Drug allergy (disorder) [facility] Rep[facility] (2 sources) Sulfamethoxazole / Trimethoprim Drug Allergy [facility] (1 source) Sulfamethoxazole Drug Allergy 3 [facility] Repository (1 source) Trimethoprim Drug Allergy 3 [facility] Rep[facility] Medications Current Medications Medication Drug Class(es) Dates Sig (Normalized) Sig (Original) 24 hr desvenlafaxine succinate 100 mg extended release oral tablet (5 sources) Serotonin and Norepinephrine Reuptake Inhibitor Start: 04-14-2022 take 1 tablet by mouth once daily desvenlafaxine 100 mg Tab- 100 mg = 1 tab(s), Oral, Daily, Refills(s) 0 Start Date: 04/14/22 Status: Ordered Start: 04-14-2022 take 1 tablet by grzegorz th once daily desvenlafaxine 100 mg Tab- 100 mg = 1 tab(s), Oral, Daily, Refills(s) 0 Start Date: 04/14/22 Status: Ordered Desvenlafaxine E R 100mg Active diclofenac sodium 75 mg delayed release oral tablet (4 sources) Nonsteroidal Anti-inflammatory Drug Start: 04-14-2022 take 1 tablet by mouth twice daily diclofenac sodium 75 mg Oral EC Tab 75 mg = 1 tab(s), Oral, BID, Refills(s) 0 Start Date: 04/14/22 Status: Ordered hydrOXYzine pamoate 25 mg oral capsule (5 sources) Antihistamine Start: 04-14-2022 take 1 capsule by mouth four times daily as needed for anxiety hydrOXYzine pamoate 25 mg Cap 25 mg = 1 cap(s), Oral, QID, PRN as needed for anxiety, Refills(s) 0 Start Date: 04/14/22 Status: Ordered Vistaril prn, ta kes at least QD Active levothyroxine sodium 0.075 mg oral tablet (2 sources) l-Thyroxine Start: 11-28-2024 take 1 tablet by mouth once daily levothyroxine 75 mcg (0.075 mg) Tab 75 mcg = 1 tab(s), Oral, Daily, Refills(s) 0 Start Date: 11/28/24 Status: Ordered Levothyroxine So dium Not-Taking methylPREDNISolone 4 mg oral tablet (1 source) Corticosteroid Start: 09-13-2023 methylPREDNISolone 4 MG as directed Orally for daily dose take half with breakfast, half with dinner for 6 days Aug, Active pantoprazole 40 mg delayed release oral tablet (5 sources) Proton Pump Inhibitor Start: 04-14-2022 take 1 tablet by mouth once daily Protonix 40 mg Tab-DR 40 mg = 1 tab(s), Oral, Daily, Refills(s) 0 Start Date: 04/14/22 Status: Ordered QUEtiapine 100 mg oral tablet (5 sources) Atypical Antipsychotic Start: 11-28-2024 take 1 tablet by mouth at bedtime quetiapine 100 mg Tab 100 mg = 1 tab(s), Oral, Bedtime, Refills(s) 0 Start Date: 11/28/24 Status: Ordered Start: 04-14-2022 take 1 tablet by grzegorz th once daily SEROquel 25 mg Tab 25 mg = 1 tab(s), Oral, Daily, Refills(s) 0 Start Date: 04/14/22 Status: Ordered take 1 tablet by grzegorz th every twenty-four hours SEROquel 100 MG 1 tablet at bedtime Orally Once a day Active valACYclovir 500 mg oral tablet (5 sources) Herpesvirus Nucleoside Analog DNA Polymerase Inhibitor, Herpes Simplex Virus Nucleoside Analog DNA Polymerase Inhibitor, Herpes Zoster Virus Nucleoside Analog DNA Polymerase Inhibitor Start: 04-14-2022 take 1 tablet by mouth once daily valacyclovir 500 mg Tab 500 mg = 1 tab(s), Oral, Daily, Refills(s) 0 Start Date: 04/14/22 Status: Ordered valACYclovir HCl Active Completed/Discontinued Medications Medication Drug Class(es) Dates Sig (Normalized) Sig (Original) [place] (1 source) [place] Not- Taking Problems Active Problems Problem Classification Problem Date Documented Da te Episodic/Chronic Anxiety disorders (9 sources) Anxiety; Translations: [Anxiety disorder, unspecified] Onset: 04-08-2022 04-14-2022 Chronic Calculus of urinary tract (10 sources) History of calculus of kidney; Translations: [Calculus of kidney] Onset: 02-27-2022 04-14-2022 Episodic Congestive heart failure; nonhypertensive (1 source) Unspecified diastolic (congestive) heart failure; Translations: [UNSPECIFIED DIASTOLIC HEART FAILURE] Onset: 04-19-2022 Chronic Endometriosis (4 sources) Endometriosis (clinical) 07-09-2015 Chronic Essential hypertension (4 sources) Hypertensive disorder 04-14-2022 Chronic Headache; including migraine (4 sources) Migraine 04-14-2022 Chronic Hypertension with complications and secondary hypertension (1 source) Hypertensive heart disease with heart failure; Translations: [HTN HEART DISEASE W/HEART FAIL] Onset: 04-19-2022 Chronic Neoplasms of unspecified nature or uncertain behavior (5 sources) Neoplasm of uncertain behavior of skin; Translations: [Neoplasm of uncertain behavior of skin] Onset: 04-21-2022 Episodic Other and unspecified benign neoplasm (3 sources) Benign neoplasm of skin of lower limb; Translations: [Other benign neoplasm of skin of unspecified lower limb, including hip] Onset: 05-12-2022 Episodic Other gastrointestinal disorders (4 sources) History of gastritis 04-14-2022 Episodic Other inflammatory condition of skin (4 sources) Psoriasis 04-14-2022 Chronic Other injuries and conditions due to external causes (1 source) Injury, unspecified, initial encounter Episodic Other non-traumatic joint disorders (1 source) Effusion, left knee Episodic Other nutritional; endocrine; and metabolic disorders (3 sources) Body mass index 25-29 - overweight 04-21-2022 Episodic Other nutritional; endocrine; and metabolic disorders (1 source) Overweight 12-02-2024 Episodic Other nutritional; endocrine; and metabolic disorders (1 source) Overweight in adulthood with body mass index of 25 or more but less than 30 12-02-2024 Episodic Other screening for suspected conditions (not mental disorders or infectious disease) (6 sources) Encounter for screening mammogram for malignant neoplasm of breast; Translations: [Encounter for screening for malignant neoplasm of cervix] Onset: 04-19-2022 Episodic Other skin disorders (4 sources) Localized swelling, mass and lump, trunk; Translations: [LOCALIZD SWELLING MASS AND LUMP TRUNK] Onset: 09-01-2022 Episodic Other skin disorders (1 source) Mass of subcutaneous tissue of left lower limb; Translations: [Localized swelling, mass and lump, left lower limb] Onset: 12-02-2024 Episodic Other skin disorders (1 source) Nodule of subcutaneous tissue of left lower limb 12-02-2024 Episodic Pneumonia (except that caused by tuberculosis [...] hazardous, chiefly nonmedicinal, chemicals] Onset: 06-12-2024 Episodic Residual codes; unclassified (1 source) Tobacco user 12-01-2024 Episodic Thyroid disorders (4 sources) Hypothyroidism 04-14-2022 Chronic Unclassified (1 source) CONTACT W/AND (SUSP) EXPOS COVID-19; Translations: [CONTACT W/AND (SUSP) EXPOS COVID-19] Onset: 09-07-2022 Unclassified (1 source) Effusion, left knee; Translations: [Effusion, left knee] Onset: 09-13-2023 Past or Other Problems Problem Classification Problem Date Documented Date Episodic/Chronic Abdominal pain (3 sources) Unspecified abdominal pain; Translations: [UNSPECIFIED ABDOMINAL PAIN] Onset: 02-25-2022 Episodic Deficiency and other anemia (1 source) Anemia, unspecified; Translations: [ANEMIA UNSPECIFIED] Onset: 04-19-2022 Episodic Diabetes mellitus without complication (1 source) Other abnormal glucose; Translations: [OTHER ABNORMAL GLUCOSE] Onset: 06-22-2022 Episodic Genitourinary symptoms and ill-defined conditions (1 [...] 2023 Amphetamines, S/P Negative Normal Cutoff 20 [facility] Comment on above: Performed By: #### A DAU9S #### [facility] [address] [place], [place] [id number] Wig Sales Consultant: Trey Carroll MD #### CP, CDP, MG #### [facility] [address] [address] Wig Sales Consultant: Belia Manjarrez MD Barbiturates, S/P Negative Normal Cutoff 50 [facility] Comment on above: Performed By: #### A DAU9S #### [facility] [address] [place] [address] Wig Sales Consultant: Trey Carroll MD #### CP, CDP, MG #### [facility] [place] [facility] [address] [address] Wig Sales Consultant: Beila Manjarrez MD Benzodiazepines, S/P Negative Normal Cutoff 50 [facility] Comment on above: Performed By: #### A DAU9S #### [facility] [address] [place] [address] Wig Sales Consultant: Trey Carroll MD #### CP, CDP, MG #### [facility] [place] [facility] [address] [place] [address] Wig Sales Consultant: Belia Manjarrez MD Buprenorphine, S/P Negative Normal Cutoff 1 [facility] Comment on above: Performed By: #### A DAU9S #### [facility] [address] [place] [address] Wig Sales Consultant: Trey Carroll MD #### CP, CDP, MG #### [facility] [place] [facility] [address] [place] [address] Wig Sales Consultant: Belia Manjarrez MD Cocaine, Serum/Plas Negative Normal Cutoff 20 [facility] Comment on above: Performed By: #### A DAU9S #### [facility] [address] [place] [address] Wig Sales Consultant: Trey Carroll MD #### CP, CDP, MG #### [facility] [place] [facility] [address] [place] [address] Wig Sales Consultant: Belia Manjarrez MD Comment See Note Normal [facility] Comment on above: Result Comment: (NOT E) [...] developed and its performance characteristics determined by [facility]. It has not been cleared or approved by the [place] Food and Drug Administration. This test was performed in a CLIA certified laboratory and is intended for clinical purposes. Performed By: [facility] [employer] [address] [place] [id number] [employer] Assault Gunner: Trace Vazquez MD, PhD CLIA Number: [id number] Performed By: #### A DAU9S #### [address] [address] Wig Sales Consultant: Trey Carroll MD #### CP, CDP, MG #### [facility] [place] [facility] [address] [place] [address] [place] [address] Wig Sales Consultant: Belia Manjarrez MD Methadone, S/P Negative Normal Cutoff 25 [facility] Comment on above: Performed By: #### A DAU9S #### [address] [address] Wig Sales Consultant: Trey Carroll MD #### CP, CDP, MG #### [facility] [place] [facility] [address] [place] [address] [place] [address] Wig Sales Consultant: Belia Manjarrez MD Methamphetamine,S/P Negative Normal Cutoff 20 [facility] Comment on above: Performed By: #### A DAU9S #### [address] [address] Wig Sales Consultant: Trey Carroll MD #### CP, CDP, MG #### [facility] [place] [facility] [address] [address] Wig Sales Consultant: Belia Manjarrez MD Opiates, Serum/Plas Negative Normal Cutoff 20 [facility] Comment on above: Performed By: #### A DAU9S #### [address] [place] [address] Wig Sales Consultant: Trey Carroll MD #### CP, CDP, MG #### [facility] [place] [facility] [address] [place] [address] Wig Sales Consultant: Belia Manjarrez MD Oxycodone, S/P Negative Normal Cutoff 20 [facility] Comment on above: Performed By: #### A DAU9S #### [facility] [address] [place] [address] Wig Sales Consultant: Trey Carroll MD #### CP, CDP, MG #### [facility] [place] [facility] [address] [place] [address] Wig Sales Consultant: Belia Manjarrez MD Phencyclidine, S/P Negative Normal Cutoff 10 [facility] Comment on above: Performed By: #### A DAU9S #### [facility] [address] [place] [address] Wig Sales Consultant: Trey Carroll MD #### CP, CDP, MG #### [facility] [place] [facility] [address] [place] [address] Wig Sales Consultant: Belia Manjarrez MD THC, Serum/Plasma Negative Normal Cutoff 20 [facility] Comment on above: Performed By: #### A DAU9S #### [facility] [address] [place] [address] Wig Sales Consultant: Trey Carroll MD #### CP, CDP, MG #### [facility] [place] [facility] [address] [place] [address] Wig Sales Consultant: Belia Manjarrez MD CBC with Diffon 06-12-2024 Abs. Basophil 0.04 k/uL Normal 0.00-0.20 [facility] Comment on above: Performed By: #### A DAU9S #### [facility] [address] [place] [address] Wig Sales Consultant: Trey Carroll MD #### CP, CDP, MG #### [facility] [place] [facility] [address] [address] Wig Sales Consultant: Belia Manjarrez MD Abs.Imm.Granulocyte 0.06 k/uL Normal 0.00-0.30 [facility] Comment on above: Performed By: #### A DAU9S #### [facility] [address] [place] [address] Wig Sales Consultant: Trey Carroll MD #### CP, CDP, MG #### [facility] [place] [facility] [address] [address] Wig Sales Consultant: Belia Manjarrez MD Abs.Neutrophil (Seg) 6.02 k/uL Normal 1.50-8.10 [facility] Comment on above: Performed By: #### A DAU9S #### [facility] [address] [place] [address] Wig Sales Consultant: Trey Carroll MD #### CP, CDP, MG #### [facility] [place] [facility] [address] [address] Wig Sales Consultant: Belia Manjarrez MD Basophils/100 WBC (Bld) 0 % Normal 0-2 [facility] Comment on above: Performed By: #### A DAU9S #### [facility] [address] [place] [address] Wig Sales Consultant: Trey Carroll MD #### CP, CDP, MG #### [facility] [place] [facility] [address] [address] Wig Sales Consultant: Belia Manjarrez MD Eosinophils (Bld) [#/Vol] 0.16 10*3/uL Normal 0.00-0.44 [facility] Comment on above: Performed By: #### A DAU9S #### [facility] [address] [place], [place] [id number] Wig Sales Consultant: Trey Carroll MD #### CP, CDP, MG #### [facility] [place] [facility] [address] [address] Wig Sales Consultant: Belia Manjarrez MD Eosinophils/100 WBC (Bld) 2 % Normal 1-4 [facility] Comment on above: Performed By: #### A DAU9S #### [facility] [address] [place] [address] Wig Sales Consultant: Trey Carroll MD #### CP, CDP, MG #### [facility] [place] [facility] [address] [place] [address] Wig Sales Consultant: Belia Manjarrez MD Erythrocyte distribution width (RBC) [Ratio] 13.3 % Normal 11.8-14.4 [facility] Comment on above: Performed By: #### A DAU9S #### [facility] [address] [place] [address] Wig Sales Consultant: Trey Carroll MD #### CP, CDP, MG #### [facility] [place] [facility] [address] [place] [address] Wig Sales Consultant: Belia Manjarrez MD Hematocrit (Bld) [Volume fraction] 41.0 % Normal 36.3-47.1 [facility] Comment on above: Performed By: #### A DAU9S #### [facility] [address] [place] [address] Wig Sales Consultant: Trey Carroll MD #### CP, CDP, MG #### [facility] [place] [facility] [address] [place] [address] Wig Sales Consultant: Belia Manjarrez MD Hemoglobin (Bld) [Mass/Vol] 14.1 g/dL Normal 11.9-15.1 [facility] Comment on above: Performed By: #### A DAU9S #### [facility] [address] [place] [address] Wig Sales Consultant: Trey Carroll MD #### CP, CDP, MG #### [facility] [place] [facility] [address] [address] Wig Sales Consultant: Belia Manjarrez MD Immature granulocytes/100 WBC (Bld) 1 % High 0 [facility] Comment on above: Performed By: #### A DAU9S #### [facility] [address] [place] [address] Wig Sales Consultant: Trey Carroll MD #### CP, CDP, MG #### [facility] [place] [facility] [address] [place] [address] Wig Sales Consultant: Belia Manjarrez MD Lymphocytes (Bld) [#/Vol] 3.39 10*3/uL Normal 1.10-3.70 [facility] Comment on above: Performed By: #### A DAU9S #### [facility] [address] [place] [address] Wig Sales Consultant: Trey Carroll MD #### CP, CDP, MG #### [facility] [place] [facility] [address] [place], [facility] Wig Sales Consultant: Belia Manjarrez MD Lymphocytes/100 WBC (Bld) 33 % Normal 24-43 [facility] Comment on above: Performed By: #### A DAU9S #### [facility] [address] [place], [place] [id number] Wig Sales Consultant: Trey Carroll MD #### CP, CDP, MG #### [facility] [place] [facility] [address] [place] [address] Wig Sales Consultant: Belia Manjarrez MD MCH (RBC) [Entitic mass] 30.9 pg Normal 25.2-33.5 [facility] Comment on above: Performed By: #### A DAU9S #### [facility] [address] [place], [place] [id number] Wig Sales Consultant: Trey Carroll MD #### CP, CDP, MG #### [facility] [place] [facility] [address] [place] [address] Wig Sales Consultant: Belia Manjarrez MD MCHC (RBC) [Mass/Vol] 34.4 g/dL Normal 28.4-34.8 [facility] Comment on above: Performed By: #### A DAU9S #### [facility] [address] [place] [address] Wig Sales Consultant: Trey Carroll MD #### CP, CDP, MG #### [facility] [place] [facility] [address] [place] [address] Wig Sales Consultant: Belia Manjarrez MD MCV (RBC) [Entitic vol] 89.9 fL Normal 82.6-102.9 [facility] Comment on above: Performed By: #### A DAU9S #### [facility] [address] [place] [address] Wig Sales Consultant: Trey Carroll MD #### CP, CDP, MG #### [facility] [place] [facility] [address] [place] [address] Wig Sales Consultant: Belia Manjarrez MD Monocytes (Bld) [#/Vol] 0.67 10*3/uL Normal 0.10-1.20 [facility] Comment on above: Performed By: #### A DAU9S #### [facility] [address] [place] [address] Wig Sales Consultant: Trey Carroll MD #### CP, CDP, MG #### [facility] [place] [facility] [address] [address] Wig Sales Consultant: Belia Manjarrez MD Monocytes/100 WBC (Bld) 7 % Normal 3-12 [facility] Comment on above: Performed By: #### A DAU9S #### [facility] [address] [place], [place] [id number] Wig Sales Consultant: Trey Carroll MD #### CP, CDP, MG #### [facility] [place] [facility] [address] [place] [address] Wig Sales Consultant: Belia Manjarrez MD Neutrophil (Seg) 57 % Normal 36-65 [facility] Comment on above: Performed By: #### A DAU9S #### [facility] [address] [place] [address] Wig Sales Consultant: Trey Carroll MD #### CP, CDP, MG #### [facility] [place] [facility] [address] [place] [address] Wig Sales Consultant: Belia Manjarrez MD NRBC Automated 0.0 per 100 WBC Normal 0.0 [facility] Comment on above: Performed By: #### A DAU9S #### [facility] [address] [place] [address] Wig Sales Consultant: Trey Carroll MD #### CP, CDP, MG #### [facility] [place] [facility] [address] [place] [address] Wig Sales Consultant: Belia Manjarrez MD Platelet mean volume (Bld) [Entitic vol] 9.6 fL Normal 8.1-13.5 [facility] Comment on above: Performed By: #### A DAU9S #### [facility] [address] [place] [address] Wig Sales Consultant: Trey Carroll MD #### CP, CDP, MG #### [facility] [place] [facility] [address] [place] [address] Wig Sales Consultant: Belia Manjarrez MD Platelets (Bld) [#/Vol] 314 10*3/uL Normal 138-453 [facility] Comment on above: Performed By: #### A DAU9S #### [facility] [address] [place] [address] Wig Sales Consultant: Trey Carroll MD #### CP, CDP, MG #### [facility] [place] [facility] [address] [place] [address] Wig Sales Consultant: Belia Manjarrez MD RBC (Bld) [#/Vol] 4.56 10*6/uL Normal 3.95-5.11 [facility] Comment on above: Performed By: #### A DAU9S #### [facility] [address] [place] [address] Wig Sales Consultant: Trey Carroll MD #### CP, CDP, MG #### [facility] [place] [facility] [address] [address] Wig Sales Consultant: Belia Manjarrez MD WBC (Bld) [#/Vol] 10.3 10*3/uL Normal 3.5-11.3 [facility] Comment on above: Performed By: #### A DAU9S #### [facility] [address] [place] [address] Wig Sales Consultant: Trey Carroll MD #### CP, CDP, MG #### [facility] [place] [facility] [address] [place] [address] Wig Sales Consultant: Belia Manjarrez MD Comp Metabolic Profon 2023 Albumin [Mass/Vol] 4.4 g/dL Normal 3.5-5.2 [facility] Comment on above: Performed By: #### A DAU9S #### [facility] [address] [place] [address] Wig Sales Consultant: Trey Carroll MD #### CP, CDP, MG #### [facility] [place] [facility] [address] [place] [address] Wig Sales Consultant: Belia Manjarrez MD Albumin/Glob Ratio 1.5 Normal 1.0-2.5 [facility] Comment on above: Performed By: #### A DAU9S #### [facility] [address] [place] [address] Wig Sales Consultant: Trey Carroll MD #### CP, CDP, MG #### [facility] [place] [facility] [address] [place] [address] Wig Sales Consultant: Belia Manjarrez MD Alkaline Phos 108 U/L High 35-104 [facility] Comment on above: Performed By: #### A DAU9S #### [facility] [address] [place] [address] Wig Sales Consultant: Trey Carroll MD #### CP, CDP, MG #### [facility] [place] [facility] [address] [place] [address] Wig Sales Consultant: Belia Manjarrez MD ALT [Catalytic activity/Vol] 46 U/L High 5-33 [facility] Comment on above: Performed By: #### A DAU9S #### [facility] [address] [place], [place] [id number] Wig Sales Consultant: Trey Carroll MD #### CP, CDP, MG #### [facility] [place] [facility] [address] [place] [address] Wig Sales Consultant: Belia Manjarrez MD Anion gap [Moles/Vol] 10 mmol/L Normal 9-17 [facility] Comment on above: Performed By: #### A DAU9S #### [facility] [address] [place] [address] Wig Sales Consultant: Trey Carroll MD #### CP, CDP, MG #### [facility] [address] [place] [address] Wig Sales Consultant: Belia Manjarrez MD AST [Catalytic activity/Vol] 32 U/L High <32 [facility] Comment on above: Performed By: #### A DAU9S #### [facility] [address] [place] [address] Wig Sales Consultant: Trey Carroll MD #### CP, CDP, MG #### [facility] [address] [place] [address] Wig Sales Consultant: Belia Manjarrez MD Bilirubin [Mass/Vol] 0.4 mg/dL Normal 0.3-1.2 [facility] Comment on above: Performed By: #### A DAU9S #### [facility] [address] [place] [address] Wig Sales Consultant: Trey Carroll MD #### CP, CDP, MG #### [facility] [address] [place] [address] Wig Sales Consultant: Belia Manjarrez MD BUN/CRE Ratio 12 Normal 9-20 [facility] Comment on above: Performed By: #### A DAU9S #### [facility] [address] [place] [address] Wig Sales Consultant: Trey Carroll MD #### CP, CDP, MG #### [address] [place] [address] Wig Sales Consultant: Belia Manjarrez MD Calcium [Mass/Vol] 9.1 mg/dL Normal 8.6-10.4 [facility] Comment on above: Performed By: #### A DAU9S #### [facility] [address] [place] [address] Wig Sales Consultant: Trey Carroll MD #### CP, CDP, MG #### [facility] [address] [place] [address] [place] [address] Wig Sales Consultant: Belia Manjarrez MD Chloride [Moles/Vol] 106 mmol/L Normal 98-107 [facility] Comment on above: Performed By: #### A DAU9S #### [facility] [address] [place] [address] Wig Sales Consultant: Trey Carroll MD #### CP, CDP, MG #### [facility] [address] [place] [address] [place] [address] Wig Sales Consultant: Belia Manjarrez MD CO2 [Moles/Vol] 26 mmol/L Normal 20-31 [facility] Comment on above: Performed By: #### A DAU9S #### [facility] [address] [place], [place] [id number] Wig Sales Consultant: Trey Carroll MD #### CP, CDP, MG #### [facility] [address] [place] [address] Wig Sales Consultant: Belia Manjarrez MD Creatinine [Mass/Vol] 0.5 mg/dL Normal 0.5-0.9 [facility] Comment on above: Performed By: #### A DAU9S #### [facility] [address] [place] [address] Wig Sales Consultant: Trey Carroll MD #### CP, CDP, MG #### [facility] [address] [place] [address] Wig Sales Consultant: Belia Manjarrez MD GFR/1.73 sq M.predicted among non-blacks MDRD (S/P/Bld) [Vol rate/Area] mL/min/{1.73_m2} Normal >60 [facility] Comment on above: Result Comment: These results [...] #### A DAU9S #### [facility] [address] [place] [address] Wig Sales Consultant: Trey Carroll MD #### CP, CDP, MG #### [facility] [address] [place] [address] Wig Sales Consultant: Belia Manjarrez MD Glucose [Mass/Vol] 90 mg/dL Normal 70-99 [facility] Comment on above: Performed By: #### A DAU9S #### [facility] [address] [place], [place] [id number] Wig Sales Consultant: Trey Carroll MD #### CP, CDP, MG #### [facility] [address] [place] [address] Wig Sales Consultant: Belia Manjarrez MD Potassium [Moles/Vol] 4.2 mmol/L Normal 3.7-5.3 [facility] Comment on above: Performed By: #### A DAU9S #### [facility] [address] [place] [id number] Wig Sales Consultant: Trey Carroll MD #### CP, CDP, MG #### [facility] [address] [place] [address] Wig Sales Consultant: Belia Manjarrez MD Protein [Mass/Vol] 7.4 g/dL Normal 6.4-8.3 [facility] Comment on above: Performed By: #### A DAU9S #### [facility] [address] [place] [id number] Wig Sales Consultant: Trey Carroll MD #### CP, CDP, MG #### [facility] [address] [place] [address] Wig Sales Consultant: Belia Manjarrez MD Sodium [Moles/Vol] 142 mmol/L Normal 135-144 [facility] Comment on above: Performed By: #### A DAU9S #### [facility] [address] [place] [address] Wig Sales Consultant: Trey Carroll MD #### CP, CDP, MG #### [facility] [address] [place] [address] Wig Sales Consultant: Belia Manjarrez MD Urea nitrogen [Mass/Vol] 6 mg/dL Normal 6-20 [facility] Comment on above: Performed By: #### A DAU9S #### [facility] [address] [place] [address] Wig Sales Consultant: Trey Carroll MD #### CP, CDP, MG #### [address] [place], [place] [phone] Wig Sales Consultant: Belia Manjarrez MD Drug Scr, Abuse, Uron 2023 Amphetamine(s),Ur Negative Normal NEG [facility] Comment on above: Result Comment: (Positive cutoff 1000 ng/mL) Performed By: #### D AU #### [address] [place], [place] [id number] Wig Sales Consultant: Belia Manjarrez MD Barbiturate(s),Ur Negative Normal NEG [facility] Comment on above: Result Comment: (Positive cutoff 200 ng/mL) Performed By: #### D AU #### [address] [place] [address] Wig Sales Consultant: Belia Manjarrez MD Benzodiazepine(s) Negative Normal NEG [facility] Comment on above: Result Comment: (Positive cutoff 200 ng/mL) Performed By: #### D AU #### [address] [place], [place] [id number] Wig Sales Consultant: Belia Manjarrez MD Buprenorphrine, Ur Negative Normal NEG [facility] Comment on above: Result Comment: (Positive cutoff 5 ng/ml) Performed By: #### D AU #### [address] [place], [place] [phone] Wig Sales Consultant: Belia Manjarrez MD Cannabinoid(s),Ur Negative Normal NEG [facility] Comment on above: Result Comment: (Positive cutoff 50 ng/mL) Performed By: #### D AU #### [address] [place], [place] [id number] Wig Sales Consultant: Belia Manjarrez MD Cocaine Metabolite Negative Normal [facility] Comment on above: Result Comment: (Positive cutoff 300 ng/mL) Performed By: #### D AU #### [address] [place], [place] [id number] Wig Sales Consultant: Belia Manjarrez MD Fentanyl, Urine Negative Normal NEG [facility] Comment on above: Result Comment: (Positive cutoff 5 ng/ml) Performed By: #### D AU #### [address] [place], [place] [id number] Wig Sales Consultant: Belia Manjarrez MD Interpretive Info Assay provides medical screening only. The absence of expected drug(s) and/or Normal [facility] Comment on above: Result Comment: meta bolite(s) may indicate diluted or adulterated urine, limitations of testing or timing of collection. Testing for legal purposes should be confirmed by another method. To request confirmation of test result, please call the lab within 7 days of sample submission. Performed By: #### D AU #### [address] [place], [place] [id number] Wig Sales Consultant: Belia Manjarrez MD Methadone Ql (U) Negative Normal NEG [facility] Comment on above: Result Comment: (Positive cutoff 300 ng/mL) Performed By: #### D AU #### [address] [place], [place] [id number] Wig Sales Consultant: Belia Manjarrez MD Opiate(s), Ur Negative Normal NEG [facility] Comment on above: Result Comment: (Positive cutoff 300 ng/mL) Performed By: #### D AU #### [address] [place], [place] [id number] Wig Sales Consultant: Belia Manjarrez MD Oxycodone, Urine Negative Normal [facility] Comment on above: Result Comment: (Positive cutoff 100 ng/mL) Performed By: #### D AU #### [address] [place] [address] Wig Sales Consultant: Belia Manjarrez MD Phencyclidine, Ur Negative Normal NEG [facility] Comment on above: Result Comment: (Positive cutoff 25 ng/mL) Performed By: #### D AU #### [facility] [address] [place] [address] Wig Sales Consultant: Belia Manjarrez MD Magnesiumon 06-12-2024 Magnesium [Mass/Vol] 2.2 mg/dL Normal 1.6-2.6 [facility] Comment on above: Performed By: #### A DAU9S #### [facility] [address] [place] [address] Wig Sales Consultant: Trey Carroll MD #### CP, CDP, MG #### [facility] [address] [place] [address] Wig Sales Consultant: Belia Manjarrez MD XR knee LT 4V*on 09-13-2023 XR knee LT 4V* [facility] [employer] Other XR knee LT 4V* [facility] [employer] Other XR knee LT 4V* [address] [place] [address] [employer] Other XR knee LT 4V* [place] [address] No rt [employer] Other XR knee LT 4V* XRay Report [employer] Other XR knee LT 4V* Signed [employer] Other XR knee LT 4V* Patient: Josephine Herndon MR#: [id number] [place] [employer] Other XR knee LT 4V* 8 [employer] Other XR knee LT 4V* : 1980 Acct:[id number] [employer] Other XR knee LT 4V* Age/Sex: 43 / F ADM Date: 09/13/23 [employer] Other XR knee LT 4V* Loc: XDUCLY Room: Type: REG CLI [employer] Other XR knee LT 4V* Attending Dr: Shae Love APRN [employer] Other XR knee LT 4V* Copies to: Shae Love APRN [employer] Other XR knee LT 4V* Ordering Provider: Shae Love APRN [employer] Other XR knee LT 4V* Date of Service: 09/13/23 [employer] Other XR knee LT 4V* XR/XR knee LT 4V*: Injury [employer] Other XR knee LT 4V* XR knee LT 4V* 09/13/2023 10:51 AM [employer] Other XR knee LT 4V* SIGNS AND SYMPTOMS: Twisting injury to left knee with pain and swelling medially [employer] Other XR knee LT 4V* PROTOCOL: Frontal, lateral, and oblique radiographs of the left knee [employer] Other XR knee LT 4V* COMPARISON: None Nort [employer] Other XR knee LT 4V* FINDINGS: [employer] Other XR knee LT 4V* The joint spaces are preserved. There is a moderate joint effusion. There is no evidence of fracture [employer] Other XR knee LT 4V* or dislocation. No significant soft tissue swelling. [employer] Other XR knee LT 4V* XR/XR knee LT 4V* [employer] Other XR knee LT 4V* IMPRESSION: [employer] st Ayi Laile Other XR knee LT 4V* No fracture. [employer] ast Ayi Laile Other XR knee LT 4V* There is a moderate joint effusion. [employer] Other XR knee LT 4V* Impression dictated by: Donato Rockwell M.D.09/13/2023 11:19 AM [employer] Other XR knee LT 4V* Dictation Location: [place] [address] [employer] Other XR knee LT 4V* Transcribed By: [facility] 09/13/23 [facility] [employer] Other XR knee LT 4V* Dictated By: Donato Rockwell II, MD 09/13/23 [facility] [employer] Other XR knee LT 4V* Signed By: [employer] Other XR knee LT 4V* 09/13/23 1119 [employer] Other XR knee LT 4V* [facility] [place] [address] [place] [address] XRay Report Signed Patient: Josephine Herndon MR#: [id number] 8 : 1980 Acct:[id number] Age/Sex: 43 / F ADM Date: 09/13/23 Loc: XDUCLY Room: Type: [facility] Attending Dr: Shae Love APRN Copies to: Shae Love APRN Ordering Provider: Shae oLve APRN Date of Service: 09/13/23 XR/XR knee [...] Donato Rockwell M.D.09/13/2023 11:19 AM Dictation Location: [place] [address] Transcribed By: [facility] 09/13/23 111 Dictated By: oDnato Rockwell II, MD 09/13/231117 Signed By: 09/13/23 111 [facility] CT CHEST WO CONon 10-10-2022 [...] AMANDA CASSIDY Date: 2022-10-10 10:35 Normal [facility] Covid-19 PCR (CVDTB)on SARS-CoV-2 (COVID-19) RNA RAYMOND+probe Ql (Unsp spec) Not detected Normal NOT DETECTED [facility] Comment on above: Result Comment: [...] for this test is supported by the [place] of Health and Human Service's declaration that [...] used). Performed By: #### C [facility] #### [facility] [address] [place] [address] CHEST WO CONon [...] BELIA HENDRICKS Date: 2022-09-01 09:55 Normal [facility] MAMM SCREEN 3D GUSTAVO CADon 11-04-2022 MG MAMM SCREEN 3D GUSTAVO CAD Patient: JOSEPHINE HERNDON Exam Date: 09/01/2022 : 1980 Gender:F Ordering : DR ANGELICA DE . Admission #: [id number] Family : Order #: [id number] CLICK HERE TO VIEW EXAM RADIOLOGY REPORT [...] bladder cancer at age 59. LOCATION: [facility] BREAST COMPOSITION: Scattered areas fibroglandular [...] Belia Hendricks MD on 09/01/2022 at 09:32 [facility] PAP ACOG PANEL 2: 21 to 29on 06-02-2022 . . Normal [facility] Comment on above: Result Comment: Perf ormed at: WB Performed By: #### [id number] #### [facility] [address] [place] [address] [address] Les Bryan Age Gdln ACOG Testing 30-65 Normal [facility] Comment on above: Performed By: #### 4 [id number] #### [facility] [address] [place] [address] [address] Les Bryan DIAGNOSIS: Comment [facility] Comment on above: Result Comment: NEGA TIVE FOR INTRAEPITHELIAL LESION OR MALIGNANCY. Performed at: WB Performed By: #### 4 [id number] #### [facility] [address] [place] [address] Dr. Les Bryan HPV Aptima Negative Normal Negative [facility] Comment on above: Result Comment: This nucleic acid amplification test detects fourteen high-risk HPV types (16,18,31,33,35,39,45,51,52,56,58,59,66,68) without differentiation. Performed at: =G Performed By: #### 4 [id number] #### [facility] [address] [place] [address] Dr. Les Bryan Methodology: Comment Normal [facility] Comment on above: Result Comment: This liquid based ThinPrep(R) pap test was screened with the use of an image guided system. Performed at: WB Performed By: #### 4 [id number] #### [facility] [address] [place] [address] Dr. Les Bryan Note: Comment Normal [facility] Comment on above: Result Comment: The Pap smear is a screening test designed to aid in the detection of premalignant and malignant conditions of the uterine cervix. It is not a diagnostic procedure and should not be used as the sole means of detecting cervical cancer. Both false-positive and false-negative reports do occur. . Performed at: WB Performed By: #### 4 [id number] #### [facility] [address] [place] [address] Dr. Les Bryan Performed by: Comment Normal [facility] Comment on above: Result Comment: Bella Cuevas, Rate And Cost Analyst (ASCP) Performed at: WB Performed By: #### 4 [id number] #### [facility] [address] [place] [address] Dr. Les Bryan Specimen adequacy: Comment Normal [facility] Comment on above: Result Comment: Sati sfactory for evaluation. Endocervical and/or squamous metaplastic cells (endocervical component) are present. Performed at: WB Performed By: #### 4 [id number] #### [facility] [address] [place] [address] Dr. Les Bryan HEPATITIS PANEL, ACUTEon HBsAg Screen Negative Normal Negative [facility] Comment on above: Performed By: #### H EPACUT #### [facility] [address] [place] [address] [address] Les Bryan HCV AB 0.2 s/co ratio Normal 0.0-0.9 [facility] Comment on above: Performed By: #### H EPACUT #### [facility] [address] [place] [address] [address] Les Bryan Hep A Ab, IgM Negative Normal Negative [facility] Comment on above: Performed By: #### H EPACUT #### [facility] [address] [place] [address] [address] Les Bryan Hep B Core Ab, IgM Negative Normal Negative [facility] Comment on above: Performed By: #### H EPACUT #### [facility] [address] [place] [address] [address] Les Bryan Interpretation: Comment Normal [facility] Comment on above: Result Comment: Nega tive Not infected with HCV, unless recent infection is suspected or other evidence exists to indicate HCV infection. Performed By: #### H EPACUT #### [facility] [address] [place] [address] Dr. Les Bryan INSULINon 04-18-2022 Insulin 18.8 uIU/mL Normal 2.6-24.9 [facility] Comment on above: Performed By: #### I NSULIN #### [facility] [address] [place] [address] Dr. Les Bryan BILIRUBIN CONJUGATED (DIRECT )on 04-17-2022 BILI, CONJUGATED 0.1 mg/dL Normal 0.0-0.2 [facility] Comment on above: Performed By: #### Andi GUY UMICRO #### [facility] [address] [address] [address] Les Bryan BNPon 04-17-2022 Natriuretic peptide B (Bld) [Mass/Vol] 12.0 pg/mL Normal <=450.0 [facility] Comment on above: Performed By: #### Andi GUY UMICRO #### [facility] [address] [place] [address] Dr. Les Bryan CBC AUTO DIFFon 04-17-2022 BASO # 0.1 103/ul Normal 0.0-0.1 [facility] Comment on above: Performed By: #### C BC #### [facility] [address] [place] [address] [address] Les Bryan Basophils/100 WBC (Bld) 0.6 % Normal 0.2-2.0 [facility] Comment on above: Performed By: #### C BC #### [facility] [address] [place] [address] [address] Les Bryan EO # 0.3 103/ul Normal 0.0-0.7 [facility] Comment on above: Performed By: #### C BC #### [facility] [address] [place] [address] Dr. Les Bryan Eosinophils/100 WBC (Bld) 3.0 % Normal 0.9-7.0 [facility] Comment on above: Performed By: #### C BC #### [facility] [address] [place] [address] Dr. Les Bryan Erythrocyte distribution width (RBC) [Ratio] 13.2 % Normal 11.0-15.0 [facility] Comment on above: Performed By: #### C BC #### [facility] [address] [place] [address] Dr. Les Bryan Hematocrit (Bld) [Volume fraction] 40.8 % Normal 36.0-48.0 [facility] Comment on above: Performed By: #### C BC #### [facility] [address] [place] [address] Dr. Les Bryan Hemoglobin (Bld) [Mass/Vol] 13.4 g/dL Normal 12.0-16.0 [facility] Comment on above: Performed By: #### C BC #### [facility] [address] [place] [address] Dr. Les Bryan IG # 0.07 10e3/ul Critically high 0.00-0.03 [facility] Comment on above: Performed By: #### C BC #### [facility] [address] [place] [address] Dr. Les Bryan IG % 0.8 % Critically high 0.0-0.5 [facility] Comment on above: Performed By: #### C BC #### [facility] [address] [place] [address] Dr. Les Bryan LYMPH # 2.8 103/ul Normal 1.2-3.8 [facility] Comment on above: Performed By: #### C BC #### [facility] [address] [place] [address] Dr. Les Bryan Lymphocytes/100 WBC (Bld) 31.7 % Normal 20.5-60.0 [facility] Comment on above: Performed By: #### C BC #### [facility] [address] [place] [address] Dr. Les Bryan MANUAL DIFF REQ NO Normal [facility] Comment on above: Performed By: #### C BC #### [facility] [address] [place] [address] Dr. Les Bryan MCH (RBC) [Entitic mass] 29.5 pg Normal 26.7-34.0 [facility] Comment on above: Performed By: #### C BC #### [facility] [address] [place] [address] Dr. Les Bryan MCHC (RBC) [Mass/Vol] 32.8 g/dL Normal 29.9-35.2 [facility] Comment on above: Performed By: #### C BC #### [facility] [address] [place] [address] Dr. Les Bryan MCV (RBC) [Entitic vol] 89.9 fL Normal 81.0-99.0 [facility] Comment on above: Performed By: #### C BC #### [facility] [address] [place] [address] Dr. Les Bryan MONO # 0.4 103/ul Normal 0.3-0.8 [facility] Comment on above: Performed By: #### C BC #### [facility] [address] [place] [address] Dr. Les Bryan Monocytes/100 WBC (Bld) 4.7 % Normal 1.7-12.0 [facility] Comment on above: Performed By: #### C BC #### [facility] [address] [place] [address] Dr. Les Bryan NEUT # 5.3 103/ul Normal 1.4-6.5 [facility] Comment on above: Performed By: #### C BC #### [facility] [address] [place] [address] Dr. Les Bryan Neutrophils/100 WBC (Bld) 59.2 % Normal 43.0-75.0 [facility] Comment on above: Performed By: #### C BC #### [facility] [address] [place] [address] Dr. Les Bryan Platelet mean volume (Bld) [Entitic vol] 9.1 fL Critically low 9.5-13.5 [facility] Comment on above: Performed By: #### C BC #### [facility] [address] [place] [address] Dr. Les Bryan PLT 309 103/ul Normal 150-[address] [facility] Comment on above: Performed By: #### C BC #### [facility] [address] [place] [address] Dr. Les Bryan RBC 4.54 106/ul Normal 4.20-5.40 [facility] Comment on above: Performed By: #### C BC #### [facility] [address] [place] [address] Dr. Les Bryan WBC 8.9 103/ul Normal 4.0-11.[address] [facility] Comment on above: Performed By: #### C BC #### [facility] [address] [place] [address] Dr. Les Bryan FREE T3on 04-17-2022 FREE T3 2.02 pg/mlL Critically low 2.18-3.98 [facility] Comment on above: Performed By: #### E BARBER GUYRO #### [facility] [address] [place] [address] Dr. Les Bryan FREE THYROXINE INDEX T7on FTI 2.07 Normal 1.30-4.50 [facility] Comment on above: Performed By: #### RICARDO STEVENSON #### [facility] [address] [place] [address] Dr. Les Bryan T3U 30.0 % Normal 30.0-39.0 [facility] Comment on above: Performed By: #### RICARDO STEVENSON #### [facility] [address] [place] [address] Dr. Les Bryan T4 [Mass/Vol] 6.90 ug/dL Normal 4.80-13.90 [facility] Comment on above: Performed By: #### RICARDO STEVENSON #### [facility] [address] [place] [address] Dr. Les Bryan GLYCOHEMOGLOBIN A1Con 2021 ADA RECOMMENDATION SEE BELOW Normal [facility] Comment on above: Result Comment: ADA RECOMMENDED LIMIT 4.0 - 6.0 ADA THERAPEUTIC TARGET < 7.0 ACTION SUGGESTED > 7.0 Performed By: #### A 1C #### [facility] [address] [place] [address] Dr. eLs Bryan Glucose [Mass/Vol] 120 mg/dL Normal [facility] Comment on above: Performed By: #### A 1C #### [facility] [address] [place] [address] Dr. Les Bryan HbA1c (Bld) [Mass fraction] 5.8 % Normal 4.5-6.2 [facility] Comment on above: Performed By: #### A 1C #### [facility] [address] [place] [address] Dr. Les Bryan IRONon 04-17-2022 Iron [Mass/Vol] 66.0 ug/dL Normal 50.0-170.0 [facility] Comment on above: Performed By: #### RICARDO STEVENSON #### [facility] [address] [place] [address] Dr. Les Bryan LIPID PROFILEon 04-17-2022 CHOL-HDL RATIO NORM SEE BELOW Normal [facility] Comment on above: Result Comment: 3.3 - 4.4 LOW RISK 4.4 - 7.1 AVERAGE RISK 7.1 - 11.0 MODERATE RISK >11.0 HIGH RISK Performed By: #### RICARDO STEVENSON #### [facility] [address] [place] [address] Dr. Les Bryna Cholesterol [Mass/Vol] 244 mg/dL Critically high <=200 [facility] Comment on above: Performed By: #### BARBER STEVENSONRO #### [facility] [address] [place] [address] Dr. Les Bryan Cholesterol in HDL [Mass/Vol] 55 mg/dL Normal 40-60 [facility] Comment on above: Performed By: #### RICARDO STEVENSON #### [facility] [address] [place] [address] Dr. Les Bryan Cholesterol in LDL [Mass/Vol] 155.4 mg/dL Normal [facility] Comment on above: Performed By: #### RICARDO STEVENSON #### [facility] [address] [place] [address] Dr. Les Bryan Cholesterol.total/Ch olesterol in HDL [Mass ratio] 4.4 {ratio} Normal [facility] Comment on above: Performed By: #### BARBER STEVENSONRO #### [facility] [address] [place] [address] Dr. Les Bryan HDL NORMAL > or = 60 mg/dl - LOW CARDIOVASCULAR RISK <40 mg/dl - HIGH CARDIOVASCULAR RISK Normal [facility] Comment on above: Performed By: #### BARBER STEVENSONRO #### [facility] [address] [place] [address] Dr. Les Bryan LDL CALC NORMAL SEE BELOW Normal [facility] Comment on above: Result Comment: <100 mg/dl OPTIMAL 100 - 129 mg/dl NEAR OR ABOVE OPTIMAL 130 - 159 mg/dl BORDERLINE HIGH 160 - 189 mg/dl HIGH >190 mg/dl VERY HIGH Performed By: #### BARBER STEVENSONRO #### [facility] [address] [place] [address] Dr. Les Bryan Triglyceride [Mass/Vol] 168 mg/dL Critically high <=[address] [facility] Comment on above: Performed By: #### BARBER STEVENSONRO #### [facility] [address] [place] [address] Dr. Les Bryan VLDL CALC 33.6 mg/dL Normal [facility] Comment on above: Performed By: #### BARBER STEVENSONRO #### [facility] [address] [place] [address] Dr. Les Bryan PROF 14(COMP METB)on 022 Albumin [Mass/Vol] 3.9 g/dL Normal 3.4-5.0 [facility] Comment on above: Performed By: #### BARBER STEVENSONRO #### [facility] [address] [place] [address] Dr. Les Bryan Albumin/Globulin [Mass ratio] 0.9 {ratio} Normal [facility] Comment on above: Performed By: #### BARBER STEVENSONRO #### [facility] [address] [place] [address] Dr. Les Bryan ALP [Catalytic activity/Vol] 137 U/L Critically high 46-116 [facility] Comment on above: Performed By: #### BARBER STEVENSONRO #### [facility] [address] [place] [address] Dr. Les Bryan ALT [Catalytic activity/Vol] 104 U/L Critically high 14-[address] [facility] Comment on above: Performed By: #### BARBER STEVENSONRO #### [facility] [address] [place] [address] Dr. Les Bryan Anion gap [Moles/Vol] 13.3 mmol/L Normal [facility] Comment on above: Performed By: #### BARBER STEVENSONRO #### [facility] [address] [place] [address] Dr. Les Bryan AST [Catalytic activity/Vol] 59 U/L Critically high 15-37 [facility] Comment on above: Performed By: #### BARBER STEVENSONRO #### [facility] [address] [place] [address] Dr. Les Bryan Bilirubin [Mass/Vol] 0.3 mg/dL Normal 0.2-1.0 [facility] Comment on above: Performed By: #### E RUR, UMICRO #### [facility] [address] [place] [address] Dr. Les Bryan Calcium [Mass/Vol] 9.0 mg/dL Normal 8.5-10.1 [facility] Comment on above: Performed By: #### E RUR, UMICRO #### [facility] [address] [place] [address] Dr. Les Bryan Chloride [Moles/Vol] 104 mmol/L Normal 98-107 [facility] Comment on above: Performed By: #### E RUR, UMICRO #### [facility] [address] [place] [address] Dr. Les Bryan CO2 [Moles/Vol] 25.0 mmol/L Normal 21.0-32.0 [facility] Comment on above: Performed By: #### E RUR, UMICRO #### [facility] [address] [place] [address] Dr. Les Bryan Creatinine [Mass/Vol] 0.70 mg/dL Normal 0.55-1.02 [facility] Comment on above: Performed By: #### E RUR, UMICRO #### [facility] [address] [place] [address] Dr. Les Bryan EGFR-AF ZAMBIAN 111 mL/min/1.73m2 Normal >=60 [facility] Comment on above: Performed By: #### E RUR, UMICRO #### [facility] [address] [place] [address] Dr. Les Bryan EGFR-NON AF ZAMBIAN 92 mL/min/1.73m2 Normal >=60 [facility] Comment on above: Performed By: #### E RUR, UMICRO #### [facility] [address] [place] [address] Dr. Les Bryan Globulin (S) [Mass/Vol] 4.3 g/dL Normal [facility] Comment on above: Performed By: #### RICARDO STEVENSON #### [facility] [address] [place] [address] Dr. Les Bryan Glucose [Mass/Vol] 104 mg/dL Normal 74-106 [facility] Comment on above: Performed By: #### BARBER STEVENSONRO #### [facility] [address] [place] [address] Dr. Les Bryan Potassium [Moles/Vol] 4.3 mmol/L Normal 3.5-5.[address] [facility] Comment on above: Performed By: #### BARBER STEVENSONRO #### [facility] [address] [place] [address] Dr. Les Bryan Protein [Mass/Vol] 8.2 g/dL Normal 6.4-8.2 [facility] Comment on above: Performed By: #### BARBER STEVENSONRO #### [facility] [address] [place] [address] Dr. Les Bryan Sodium [Moles/Vol] 138 mmol/L Normal 136-145 [facility] Comment on above: Performed By: #### RICARDO STEVENSON #### [facility] [address] [place] [address] Dr. Les Bryan Urea nitrogen [Mass/Vol] 10.0 mg/dL Normal 7.0-18.[address] [facility] Comment on above: Performed By: #### BARBER STEVENSONRO #### [facility] [address] [place] [address] Dr. Les Bryan Urea nitrogen/Creatinine [Mass ratio] 14.3 mg/mg Normal [facility] Comment on above: Performed By: #### BARBER STEVENSONRO #### [facility] [address] [place] [address] Dr. Les Bryan TSHon 04-17-2022 TSH 4.067 uIU/mL Critically high 0.358-3.740 [facility] Comment on above: Performed By: #### T SH, DBIL, BNP, FT3, T7, LIPID, CMP #### [facility] [address] [place] [address] Dr. Les Bryan INSULINon 04-06-2022 Insulin 34.6 uIU/mL Critically high 2.6-24.9 [facility] Comment on above: Performed By: #### RICARDO STEVENSON #### [facility] [address] [place] [address] Dr. Les Bryan T4 LABCORPon 04-06-2022 T4 [Mass/Vol] 6.7 ug/dL Normal 4.5-12.0 [facility] Comment on above: Performed By: #### [id number] #### [facility] [address] [place] [address] Dr. Les Bryan BNPon 04-05-2022 Natriuretic peptide B (Bld) [Mass/Vol] 18.0 pg/mL Normal <=450.[address] [facility] Comment on above: Performed By: #### RICARDO STEVENSON #### [facility] [address] [place] [address] Dr. Les Bryan CBC AUTO DIFFon 04-05-2022 BASO # 0.1 103/ul Normal 0.0-0.1 [facility] Comment on above: Performed By: #### [id number] #### [facility] [address] [place] [address] Dr. Les Bryan Basophils/100 WBC (Bld) 0.6 % Normal 0.2-2.[address] [facility] Comment on above: Performed By: #### [id number] #### [facility] [address] [place] [address] Dr. Les Bryan EO # 0.2 103/ul Normal 0.0-0.[address] [facility] Comment on above: Performed By: #### 4 [id number] #### [facility] [address] [place] [address] Dr. Les Bryan Eosinophils/100 WBC (Bld) 1.9 % Normal 0.9-7.[address] [facility] Comment on above: Performed By: #### [id number] #### [facility] [address] [place] [address] Dr. Les Bryan Erythrocyte distribution width (RBC) [Ratio] 13.3 % Normal 11.0-15.0 [facility] Comment on above: Performed By: #### 4 [id number] #### [facility] [address] [place] [address] Dr. Les Bryan Hematocrit (Bld) [Volume fraction] 39.1 % Normal 36.0-48.0 [facility] Comment on above: Performed By: #### [id number] #### [facility] [address] [place] [address] Dr. Les Bryan Hemoglobin (Bld) [Mass/Vol] 13.2 g/dL Normal 12.0-16.0 [facility] Comment on above: Performed By: #### [id number] #### [facility] [address] [place] [address] Dr. Les Bryan IG # 0.08 10e3/ul Critically high 0.00-0.03 [facility] Comment on above: Performed By: #### 4 [id number] #### [facility] [address] [place] [address] Dr. Les Bryan IG % 0.8 % Critically high 0.0-0.5 [facility] Comment on above: Performed By: #### 4 [id number] #### [facility] [address] [place] [address] Dr. Les Bryan LYMPH # 3.0 103/ul Normal 1.2-3.8 [facility] Comment on above: Performed By: #### 4 [id number] #### [facility] [address] [place] [address] Dr. Les Bryan Lymphocytes/100 WBC (Bld) 31.4 % Normal 20.5-60.0 [facility] Comment on above: Performed By: #### [id number] #### [facility] [address] [place] [address] Dr. Les Bryan MANUAL DIFF REQ NO Normal [facility] Comment on above: Performed By: #### [id number] #### [facility] [address] [place] [address] Dr. Les Bryan MCH (RBC) [Entitic mass] 30.1 pg Normal 26.7-34.0 [facility] Comment on above: Performed By: #### 4 [id number] #### [facility] [address] [place] [address] Dr. Les Bryan MCHC (RBC) [Mass/Vol] 33.8 g/dL Normal 29.9-35.2 [facility] Comment on above: Performed By: #### [id number] #### [facility] [address] [place] [address] Dr. Les Bryan MCV (RBC) [Entitic vol] 89.1 fL Normal 81.0-99.0 [facility] Comment on above: Performed By: #### 4 [id number] #### [facility] [address] [place] [address] Dr. Les Bryan MONO # 0.6 103/ul Normal 0.3-0.8 [facility] Comment on above: Performed By: #### [id number] #### [facility] [address] [place] [address] Dr. Les Bryan Monocytes/100 WBC (Bld) 6.1 % Normal 1.7-12.0 [facility] Comment on above: Performed By: #### 4 [id number] #### [facility] [address] [place] [address] Dr. Les Bryan NEUT # 5.6 103/ul Normal 1.4-6.[address] [facility] Comment on above: Performed By: #### 4 [id number] #### [facility] [address] [place] [address] Dr. Les Bryan Neutrophils/100 WBC (Bld) 59.2 % Normal 43.0-75.0 [facility] Comment on above: Performed By: #### 4 [id number] #### [facility] [address] [place] [address] Dr. Les Bryan Platelet mean volume (Bld) [Entitic vol] 9.0 fL Critically low 9.5-13.5 [facility] Comment on above: Performed By: #### 4 [id number] #### [facility] [address] [place] [address] Dr. Les Bryan PLT 286 103/ul Normal 150-450 [facility] Comment on above: Performed By: #### 4 [id number] #### [facility] [address] [place] [address] Dr. Les Bryan RBC 4.39 106/ul Normal 4.20-5.40 [facility] Comment on above: Performed By: #### 4 [id number] #### [facility] [address] [place] [address] Dr. Les Bryan WBC 9.5 103/ul Normal 4.0-11.0 [facility] Comment on above: Performed By: #### 4 [id number] #### [facility] [address] [place] [address] Dr. Les Bryan FREE T3on 04-05-2022 FREE T3 2.73 pg/mlL Normal 2.18-3.98 [facility] Comment on above: Performed By: #### RICARDO STEVENSON #### [facility] [address] [place] [address] Dr. Les Bryan FREE THYROXINE INDEX T7on FTI 2.08 Normal 1.30-4.50 [facility] Comment on above: Performed By: #### RICARDO STEVENSON #### [facility] [address] [place] [address] Dr. Les Bryan T3U 31.0 % Normal 30.0-39.0 [facility] Comment on above: Performed By: #### RICARDO STEVENSON #### [facility] [address] [place] [address] Dr. Les Bryan T4 [Mass/Vol] 6.70 ug/dL Normal 4.80-13.90 [facility] Comment on above: Result Comment: T4 t esting performed by [facility] Performed By: #### RICARDO STEVENSON #### [facility] [address] [place] [address] Dr. Les Bryan GLYCOHEMOGLOBIN A1Con 2021 ADA RECOMMENDATION SEE BELOW Normal [facility] Comment on above: Result Comment: ADA RECOMMENDED LIMIT 4.0 - 6.0 ADA THERAPEUTIC TARGET < 7.0 ACTION SUGGESTED > 7.0 Performed By: #### [id number] #### [facility] [address] [place] [address] Dr. Les Bryan Glucose [Mass/Vol] 120 mg/dL Normal [facility] Comment on above: Performed By: #### 4 [id number] #### [facility] [address] [place] [address] Dr. Les Bryan HbA1c (Bld) [Mass fraction] 5.8 % Normal 4.5-6.2 [facility] Comment on above: Performed By: #### 4 [id number] #### [facility] [address] [place] [address] Dr. Les Bryan IRONon 04-05-2022 Iron [Mass/Vol] 105.0 ug/dL Normal 50.0-170.0 [facility] Comment on above: Performed By: #### RICARDO STEVENSON #### [facility] [address] [place] [address] Dr. Les Bryan LIPID PROFILEon 04-05-2022 CHOL-HDL RATIO NORM SEE BELOW Normal [facility] Comment on above: Result Comment: 3.3 - 4.4 LOW RISK 4.4 - 7.1 AVERAGE RISK 7.1 - 11.0 MODERATE RISK >11.0 HIGH RISK Performed By: #### RICARDO STEVENSON #### [facility] [address] [place] [address] Dr. Les Bryan Cholesterol [Mass/Vol] 217 mg/dL Critically high <=200 [facility] Comment on above: Performed By: #### RICARDO STEVENSON #### [facility] [address] [place] [address] Dr. Les Bryan Cholesterol in HDL [Mass/Vol] 49 mg/dL Normal 40-60 [facility] Comment on above: Performed By: #### Andi GUY UMICRO #### [facility] [address] [place] [address] Dr. Les Bryan Cholesterol in LDL [Mass/Vol] 128.2 mg/dL Normal [facility] Comment on above: Performed By: #### Andi GUY UMICRO #### [facility] [address] [place] [address] Dr. Les Bryan Cholesterol.total/Ch olesterol in HDL [Mass ratio] 4.4 {ratio} Normal [facility] Comment on above: Performed By: #### Andi GUY UMICRO #### [facility] [address] [place] [address] Dr. Les Bryan HDL NORMAL > or = 60 mg/dl - LOW CARDIOVASCULAR RISK <40 mg/dl - HIGH CARDIOVASCULAR RISK Normal [facility] Comment on above: Performed By: #### Andi GUY UMICRO #### [facility] [address] [place] [address] Dr. Les Bryan LDL CALC NORMAL SEE BELOW Normal [facility] Comment on above: Result Comment: <100 mg/dl OPTIMAL 100 - 129 mg/dl NEAR OR ABOVE OPTIMAL 130 - 159 mg/dl BORDERLINE HIGH 160 - 189 mg/dl HIGH >190 mg/dl VERY HIGH Performed By: #### Andi GUY UMICRO #### [facility] [address] [place] [address] Dr. Les Bryan Triglyceride [Mass/Vol] 199 mg/dL Critically high <=[address] [facility] Comment on above: Performed By: #### Andi GUY UMICRO #### [facility] [address] [place] [address] Dr. Les Bryan VLDL CALC 39.8 mg/dL Normal [facility] Comment on above: Performed By: #### Andi GUY UMICRO #### [facility] [address] [place] [address] Dr. Les Bryan PROF 14(COMP METB)on 022 Albumin [Mass/Vol] 3.8 g/dL Normal 3.4-5.0 [facility] Comment on above: Performed By: #### Andi GUY, UMICRO #### [facility] [address] [address] [address] Les Bryan Albumin/Globulin [Mass ratio] 0.9 {ratio} Normal [facility] Comment on above: Performed By: #### Andi GUY, UMICRO #### [facility] [address] [address] [address] Les Bryan ALP [Catalytic activity/Vol] 122 U/L Critically high 46-116 [facility] Comment on above: Performed By: #### Andi GUY, UMICRO #### [facility] [address] [address] [address] Les Bryan ALT [Catalytic activity/Vol] 90 U/L Critically high 14-59 [facility] Comment on above: Performed By: #### Andi GUY UMICRO #### [facility] [address] [address] [address] Les Bryan Anion gap [Moles/Vol] 13.5 mmol/L Normal [facility] Comment on above: Performed By: #### Andi GUY UMICRO #### [facility] [address] [address] [address] Les Bryan AST [Catalytic activity/Vol] 63 U/L Critically high 15-37 [facility] Comment on above: Performed By: #### Andi GUY, UMICRO #### [facility] [address] [address] [address] Les Bryan Bilirubin [Mass/Vol] 0.4 mg/dL Normal 0.2-1.0 [facility] Comment on above: Performed By: #### Andi GUY, UMICRO #### [facility] [address] [address] [address] Les Bryan Calcium [Mass/Vol] 9.3 mg/dL Normal 8.5-10.1 [facility] Comment on above: Performed By: #### Andi GUY, UMICRO #### [facility] [address] [address] [address] Les Bryan Chloride [Moles/Vol] 103 mmol/L Normal 98-107 [facility] Comment on above: Performed By: #### RICARDO STEVENSON #### [facility] [address] [place] [address] Dr. Les Bryan CO2 [Moles/Vol] 24.6 mmol/L Normal 21.0-32.0 [facility] Comment on above: Performed By: #### RICARDO STEVENSON #### [facility] [address] [place] [address] Dr. Les Bryan Creatinine [Mass/Vol] 0.70 mg/dL Normal 0.55-1.02 [facility] Comment on above: Performed By: #### RICARDO STEVENSON #### [facility] [address] [place] [address] Dr. Les Bryan EGFR-AF ZAMBIAN >60 Normal >=60 [facility] Comment on above: Performed By: #### RICARDO STEVENSON #### [facility] [address] [place] [address] Dr. Les Bryan EGFR-NON AF ZAMBIAN >60 Normal >=60 [facility] Comment on above: Performed By: #### RICARDO STEVENSON #### [facility] [address] [place] [address] Dr. Les Bryan Globulin (S) [Mass/Vol] 4.1 g/dL Normal [facility] Comment on above: Performed By: #### RICARDO STEVENSON #### [facility] [address] [place] [address] Dr. Les Bryan Glucose [Mass/Vol] 110 mg/dL Critically high 74-106 T [facility] Comment on above: Performed By: #### RICARDO STEVENSON #### [facility] [address] [place] [address] Dr. Les Bryan Potassium [Moles/Vol] 4.1 mmol/L Normal 3.5-5.1 [facility] Comment on above: Performed By: #### RICARDO STEVENSON #### [facility] [address] [place] [address] Dr. Les Bryan Protein [Mass/Vol] 7.9 g/dL Normal 6.4-8.2 [facility] Comment on above: Performed By: #### BARBER STEVENSONRO #### [facility] [address] [place] [address] Dr. Les Bryan Sodium [Moles/Vol] 137 mmol/L Normal 136-145 [facility] Comment on above: Performed By: #### BARBER STEVENSONRO #### [facility] [address] [place] [address] Dr. Les Bryan Urea nitrogen [Mass/Vol] 9.0 mg/dL Normal 7.0-18.0 [facility] Comment on above: Performed By: #### BARBER STEVENSONRO #### [facility] [address] [place] [address] Dr. Les Bryan Urea nitrogen/Creatinine [Mass ratio] 12.9 mg/mg Normal [facility] Comment on above: Performed By: #### BARBER STEVENSONRO #### [facility] [address] [place] [address] Dr. Les Bryan TSHon 04-05-2022 TSH 3.572 uIU/mL Normal 0.358-3.740 [facility] Comment on above: Performed By: #### BARBER STEVENSONRO #### [facility] [address] [place] [address] Dr. Les Bryan TSH RANGE SEE BELOW Normal [facility] Comment on above: Result Comment: <0.3 4 UIU/ml HYPERTHYROID 0.34-5.60 UIU/ml EUTHYROID >5.60 UIU/ml HYPOTHYROID Performed By: #### BARBER STEVENSONRO #### [facility] [address] [place] [address] Dr. Les Bryan XR KUB 1 VIEWon [...] by: AMANDA CASSIDY Date: 2022-02-27 15:05 Normal [facility] AMYLASEon 02-25-2022 Amylase [Catalytic activity/Vol] 34 U/L Normal 25-[address] [facility] Comment on above: Performed By: #### [id number] #### [facility] [address] [place] [address] Dr. Les Bryan CBC AUTO DIFFon 02-25-2022 BASO # 0.0 103/ul Normal 0.0-0.1 [facility] Comment on above: Performed By: #### C BC #### [facility] [address] [place] [address] Dr. Les Bryan Basophils/100 WBC (Bld) 0.4 % Normal 0.2-2.0 [facility] Comment on above: Performed By: #### C BC #### [facility] [address] [place] [address] Dr. Les Bryan EO # 0.3 103/ul Normal 0.0-0.7 [facility] Comment on above: Performed By: #### C BC #### [facility] [address] [place] [address] Dr. Les Bryan Eosinophils/100 WBC (Bld) 3.6 % Normal 0.9-7.0 [facility] Comment on above: Performed By: #### C BC #### [facility] [address] [place] [address] Dr. Les Bryan Erythrocyte distribution width (RBC) [Ratio] 13.1 % Normal 11.0-15.0 [facility] Comment on above: Performed By: #### C BC #### [facility] [address] [place] [address] Dr. Les Bryan Hematocrit (Bld) [Volume fraction] 40.6 % Normal 36.0-48.0 [facility] Comment on above: Performed By: #### C BC #### [facility] [address] [place] [address] Dr. Les Bryan Hemoglobin (Bld) [Mass/Vol] 13.3 g/dL Normal 12.0-16.0 [facility] Comment on above: Performed By: #### C BC #### [facility] [address] [place] [address] Dr. Les Bryan IG # 0.06 10e3/ul Critically high 0.00-0.03 [facility] Comment on above: Performed By: #### C BC #### [facility] [address] [place] [address] Dr. Les Bryan IG % 0.6 % Critically high 0.0-0.5 [facility] Comment on above: Performed By: #### C BC #### [facility] [address] [place] [address] Dr. Les Bryan LYMPH # 3.6 103/ul Normal 1.2-3.8 [facility] Comment on above: Performed By: #### C BC #### [facility] [address] [place] [address] Dr. Les Bryan Lymphocytes/100 WBC (Bld) 38.2 % Normal 20.5-60.0 [facility] Comment on above: Performed By: #### C BC #### [facility] [address] [place] [address] Dr. Les Bryan MANUAL DIFF REQ NO Normal [facility] Comment on above: Performed By: #### C BC #### [facility] [address] [place] [address] Dr. Les Bryan MCH (RBC) [Entitic mass] 29.7 pg Normal 26.7-34.0 [facility] Comment on above: Performed By: #### C BC #### [facility] [address] [place] [address] Dr. Les Bryan MCHC (RBC) [Mass/Vol] 32.8 g/dL Normal 29.9-35.2 [facility] Comment on above: Performed By: #### C BC #### [facility] [address] [address] [address] Les Bryan MCV (RBC) [Entitic vol] 90.6 fL Normal 81.0-99.0 [facility] Comment on above: Performed By: #### C BC #### [facility] [address] [address] [address] Les Bryan MONO # 0.5 103/ul Normal 0.3-0.8 [facility] Comment on above: Performed By: #### C BC #### [facility] [address] [address] [address] Les Bryan Monocytes/100 WBC (Bld) 5.4 % Normal 1.7-12.0 [facility] Comment on above: Performed By: #### C BC #### [facility] [address] [place] [address] Dr. Les Bryan NEUT # 4.9 103/ul Normal 1.4-6.5 [facility] Comment on above: Performed By: #### C BC #### [facility] [address] [place] [address] Dr. Les Bryan Neutrophils/100 WBC (Bld) 51.8 % Normal 43.0-75.0 [facility] Comment on above: Performed By: #### C BC #### [facility] [address] [address] [address] Les Bryan Platelet mean volume (Bld) [Entitic vol] 9.2 fL Critically low 9.5-13.5 [facility] Comment on above: Performed By: #### C BC #### [facility] [address] [address] [address] Les Bryan PLT 335 103/ul Normal 150-[address] [facility] Comment on above: Performed By: #### C BC #### [facility] [address] [address] [address] Les Bryan RBC 4.48 106/ul Normal 4.20-5.40 [facility] Comment on above: Performed By: #### C BC #### [facility] [address] [place], [place] [address] Dr. Les Bryan WBC 9.4 103/ul Normal 4.0-11.0 [facility] Comment on above: Performed By: #### C BC #### [facility] [address] [place], [place] [address] ABD/PELVIS WO CONon [...] IWONA BRITT Date: 2022-02-25 19:05 Normal [facility] ER URINE PROFILEon 2 Bilirubin Ql (U) Negative Normal NEGATIVE [facility] Comment on above: Performed By: #### Andi GUY UMICRO #### [facility] [address] [address] [address] Les Bryan Clarity (U) CLEAR Normal CLEAR [facility] Comment on above: Performed By: #### Andi GUY UMICRO #### [facility] [address] [place] [address] Dr. Les Bryan Color (U) YELLOW Normal YELLOW [facility] Comment on above: Performed By: #### Andi GUY UMICRO #### [facility] [address] [place] [address] Dr. Les MOY A micrscopic examination will be performed if indicated. Normal [facility] Comment on above: Performed By: #### Andi GUY UMICRO #### [facility] [address] [place] [address] Dr. Les Bryan Glucose Ql (U) Negative Normal NEGATIVE [facility] Comment on above: Performed By: #### Andi GUY UMICRO #### [facility] [address] [place] [address] Dr. Les Bryan Hemoglobin Ql (U) LARGE Abnormal NEGATIVE [facility] Comment on above: Performed By: #### Andi GUY UMICRO #### [facility] [address] [address] [address] Les Bryan Ketones Ql (U) Negative Normal NEGATIVE [facility] Comment on above: Performed By: #### Andi GUY UMICRO #### [facility] [address] [place] [address] Dr. Les Bryan LEUKOCYTES TRACE Abnormal NEGATIVE [facility] Comment on above: Performed By: #### Andi GUY UMICRO #### [facility] [address] [place] [address] Dr. Les Bryan Nitrite Ql (U) Negative Normal NEGATIVE [facility] Comment on above: Performed By: #### BARBER STEVENSONRO #### [facility] [address] [place] [address] Dr. Les Bryan pH (U) 7.0 [pH] Normal 5-9 [facility] Comment on above: Performed By: #### BARBER STEVENSONRO #### [facility] [address] [place] [address] Dr. Les Bryan Protein (U) [Mass/Vol] 30 mg/dL Abnormal NEGATIVE/ TRACE [facility] Comment on above: Performed By: #### BARBER STEVENSONRO #### [facility] [address] [place] [address] Dr. Les Bryan SPEC GRAVITY 1.025 Normal 1.005-<=1.025 [facility] Comment on above: Performed By: #### BARBER STEVENSONRO #### [facility] [address] [place] [address] Dr. Les Bryan UR MICRO IND INDICATED Normal [facility] Comment on above: Performed By: #### BARBER STEVENSONRO #### [facility] [address] [place] [address] Dr. Les Bryan Urobilinogen Qn (U) 0.2 {Racquel'U}/dL Normal 0.2 - 1. 0 [facility] Comment on above: Performed By: #### Andi GUY DARCIERO #### [facility] [address] [place] [address] Dr. Les Bryan LIPASEon 02-25-2022 Lipase [Catalytic activity/Vol] 82.0 U/L Normal 73.0-393.0 [facility] Comment on above: Performed By: #### [id number] #### [facility] [address] [place] [address] Dr. Les Bryan PROF 14(COMP METB)on 022 Albumin [Mass/Vol] 3.7 g/dL Normal 3.4-5.0 [facility] Comment on above: Performed By: #### [id number] #### [facility] [address] [place] [address] Dr. Les Bryan Albumin/Globulin [Mass ratio] 0.9 {ratio} Normal [facility] Comment on above: Performed By: #### [id number] #### [facility] [address] [place] [address] Dr. Les Bryan ALP [Catalytic activity/Vol] 129 U/L Critically high 46-116 [facility] Comment on above: Performed By: #### 4 [id number] #### [facility] [address] [address] [address] Les Bryan ALT [Catalytic activity/Vol] 86 U/L Critically high 14-59 [facility] Comment on above: Performed By: #### 4 [id number] #### [facility] [address] [place] [address] Dr. Les Bryan Anion gap [Moles/Vol] 15.3 mmol/L Normal [facility] Comment on above: Performed By: #### 4 [id number] #### [facility] [address] [place] [address] Dr. Les Bryan AST [Catalytic activity/Vol] 51 U/L Critically high 15-37 [facility] Comment on above: Performed By: #### [id number] #### [facility] [address] [place] [address] Dr. Les Bryan Bilirubin [Mass/Vol] 0.2 mg/dL Normal 0.2-1.0 [facility] Comment on above: Performed By: #### 4 [id number] #### [facility] [address] [place] [address] Dr. Les Bryan Calcium [Mass/Vol] 8.4 mg/dL Critically low 8.5-10.1 [facility] Comment on above: Performed By: #### 4 [id number] #### [facility] [address] [place] [address] Dr. Les Bryan Chloride [Moles/Vol] 103 mmol/L Normal 98-107 [facility] Comment on above: Performed By: #### 4 [id number] #### [facility] [address] [place] [address] Dr. Les Bryan CO2 [Moles/Vol] 26.2 mmol/L Normal 21.0-32.0 [facility] Comment on above: Performed By: #### 4 [id number] #### [facility] [address] [place] [address] Dr. Les Bryan Creatinine [Mass/Vol] 0.72 mg/dL Normal 0.55-1.02 [facility] Comment on above: Performed By: #### 4 [id number] #### [facility] [address] [place] [address] Dr. Les Bryan EGFR-AF ZAMBIAN >60 Normal >=60 [facility] Comment on above: Performed By: #### 4 [id number] #### [facility] [address] [place] [address] Dr. Les Bryan EGFR-NON AF ZAMBIAN >60 Normal >=60 [facility] Comment on above: Performed By: #### 4 [id number] #### [facility] [address] [place] [address] Dr. Les Bryan Globulin (S) [Mass/Vol] 4.2 g/dL Normal [facility] Comment on above: Performed By: #### 4 [id number] #### [facility] [address] [place] [address] Dr. Les Bryan Glucose [Mass/Vol] 121 mg/dL Critically high 74-106 T [facility] Comment on above: Performed By: #### 4 [id number] #### [facility] [address] [place] [address] Dr. Les Bryan Potassium [Moles/Vol] 3.5 mmol/L Normal 3.5-5.1 [facility] Comment on above: Performed By: #### 4 [id number] #### [facility] [address] [place] [address] Dr. Les Bryan Protein [Mass/Vol] 7.9 g/dL Normal 6.1-8.2 [facility] Comment on above: Performed By: #### 4 [id number] #### [facility] [address] [place] [address] Dr. Les Bryan Sodium [Moles/Vol] 141 mmol/L Normal 136-145 [facility] Comment on above: Performed By: #### 4 [id number] #### [facility] [address] [place] [address] Dr. Les Bryan Urea nitrogen [Mass/Vol] 14.0 mg/dL Normal 7.0-18.0 [facility] Comment on above: Performed By: #### 4 [id number] #### [facility] [address] [place] [address] Dr. Les Bryan Urea nitrogen/Creatinine [Mass ratio] 19.4 mg/mg Normal [facility] Comment on above: Performed By: #### 4 [id number] #### [facility] [address] [place] [address] Dr. Les Bryan URINE MICROSCOPIC ONLYon BACTERIA TRACE Abnormal NONE SEEN [facility] Comment on above: Performed By: #### Andi GUY UMICRO #### [facility] [address] [place] [address] Dr. Les Bryan Bacteria identified Cx Nom (U) NOT INDICATED Normal [facility] Comment on above: Performed By: #### Andi GUY UMICRO #### [facility] [address] [place] [address] Dr. Les Bryan CAST NONE SEEN Normal NONE SEEN [facility] Comment on above: Performed By: #### Andi GUY UMICRO #### [facility] [address] [place] [address] Dr. Les Bryan Crystals LM Nom (Urine sed) NONE SEEN Normal NONE SEEN [facility] Comment on above: Performed By: #### Andi GUY UMICRO #### [facility] [address] [place] [address] Dr. Les Bryan Epithelial cells LM Ql (Urine sed) MODERATE Abnormal NONE SEEN /RARE [facility] Comment on above: Performed By: #### Andi GUY UMICRO #### [facility] [address] [place] [address] Dr. Les Bryan MUCOUS NONE SEEN Normal NONE SEEN [facility] Comment on above: Performed By: #### E RUR, UMICRO #### [facility] [address] [place], [place] [address] Dr. Les Bryan RBC 20-50 Abnormal 0-[address] [facility] Comment on above: Result Comment: cretammy ated RBCs Performed By: #### E BROOKS, UMICRO #### [facility] [address] [place], [place] [address] Dr. Les Bryan WBC 2-5 Abnormal NONE SEEN [facility] Comment on above: Performed By: #### E RUR, UMICRO #### [facility] [address] [place], [place] [address] Dr. Les Bryan Vital Signs Date Time Vital Sign Value Performing Clinician Facility 12-02-2024 14:40-0500 Blood Pressure Location [employer] [facility] [place] 12-02-2024 14:40-0500 Diastolic blood pressure 106 mm[Hg] [employer] [facility] [place] 12-02-2024 14:40-0500 Heart rate 72 /min Infusion Resource [facility] [place] 12-02-2024 14:40-0500 Respiratory rate 16 /min [employer] [facility] [place] 12-02-2024 14:40-0500 Systolic blood pressure 142 mm[Hg] [employer] [facility] [place] 09-13-2023 10:30-0500 Body height 162.56 cm Shae Love Other [facility] Other 09-13-2023 10:30-0500 Body mass index (BMI) [Ratio] 23.14 kg/m2 Shae Love Other [facility] Other 09-13-2023 10:30-0500 Body temperature 98.4 [degF] Shae Love Other [facility] Other 09-13-2023 10:30-0500 Body weight 61.15 kg Shae Love Other [facility] Other 09-13-2023 10:30-0500 Respiratory rate 18 /min Shae Love Other [facility] Other 09-13-2023 10:30-0500 SaO2% (BldA) [Mass fraction] 99 % Shae Love Other [facility] Other 04-21-2022 09:07-0400 Blood Pressure Location Jl YOLY [facility] [place] 04-21-2022 09:07-0400 Diastolic blood pressure 86 mm[Hg] Jl BRIDGESL [facility] [place] 04-21-2022 09:07-0400 Heart rate 92 /min Jl NILL [facility] [place] 04-21-2022 09:07-0400 Respiratory rate 16 /min Jl NILL [facility] [place] 04-21-2022 09:07-0400 Systolic blood pressure 127 mm[Hg] Jl NILL [facility] [place] Encounters Encounter Date Encounter Type Care Provider Facility Start: 12-02-2024 ambulatory Jl FREDERICK [facility] : [facility] Start: 12-02-2024 End: 02-04-2025 Patient encounter procedure Jl FREDERICK [facility] [place] Start: 06-12-2024 End: 06-12-2024 Emergency department patient visit [facility] Start: 09-13-2023 Office outpatient ne w 20 minutes Shae Love [facility] Start: 09-13-2023 End: 09-13-2023 ambulatory Shae Love [facility] [employer] Other Start: 09-13-2023 End: 09-13-2023 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: [facility] Work Phone: Start: 10-09-2022 End: 10-10-[address] ANGELICA DE Facility:[facility] Start: 09-04-2022 End: 09-04-[address] ANGELICA DE Facility:[facility] Start: 09-01-2022 End: 09-02-[address] ANGELICA DE Facility:[facility] Start: 05-30-2022 End: 05-30-[address] ANGELICA DE Facility:[facility] Start: 05-12-2022 End: 05-12-2022 Patient encounter procedure Jl FREDERICK [facility] [place] Start: 05-03-2022 End: 05-03-2022 Patient encounter procedure Jl FREDERICK [facility] [place] Start: 04-21-2022 End: 04-21-2022 Patient encounter procedure Jl FREDERICK [facility] [place] Start: 04-20-[address] ANGELICA DE Facility :[facility] Start: 04-17-2022 End: 04-18-[address] ANGELICA DE Facility:[facility] Start: 04-05-2022 End: 04-06-[address] ANGELICA DE Facility:[facility] Start: 02-27-2022 End: 02-28-[address] ANGELICA DE Facility:[facility] Start: 02-25-2022 End: 02-25-2022 ambulatory EMILY MCDERMOTT Facility:[facility] Procedures Date Procedure Procedure Detail Performing Clinician Start: 09-13-2023 Radiologic examinati on of knee 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 Shae Love Work Phone: Start: 05-03-2022 Excision of dermatofibroma Jl FREDERICK Comment on above: left ankle Start: 07-08-2015 laparoscopic cholecy stectomy with intraoperative cholangiogram Jl FREDERICK Abdominal hysterectomy Sebastian BRIDGESHerbert Bilateral complete salpingectomy Jl BRIDGESHerbert Diagnostic laparoscopy Sebastian nilda FREDERICK Loop electrosurgical excision procedure Jl BRIDGESHerbert Payers Date Payer Category Payer Unknown [id number] 1980 Unknown [id number] 2.16.84 [id number] 1980 Unknown [id number] 2.16.84 [id number] 1979 Unknown [id number] 2.16.84 [id number] 1979 Unknown [id number] 2.16.84 [id number] 1979 Unknown [id number] 2.16.84 [id number] 1979 Unknown [id number] 2.16.84 [id number] 1979 Unknown [id number] 2.16.84 [id number] 1979 Unknown [id number] 2.16.84 [id number] 1979 Unknown [id number] 2.16.84 [id number] 1979 Unknown [id number] 2.16.8 [id number] 1979 Unknown [id number] 2.16.8 [id number] 1960 Self-pay 1960 Unknown [id number] Unknown [id number] 2.16.8 [id number] Social History Date Type Detail Facility Start: 04-21-2022 Tobacco smoking status Ex-smoker (fi nding) [facility] Tobacco smoking status Never [facility] Sex Assigned At Female [facility] Start: 1980 Sex Assigned At Female F [facility] Start: 12-02-2024 Tobacco smoking status Heavy t obacco smoker (finding) [facility] Functional Status Date Assessment Result Facility 12-02-2024 Functional Status N/A [facility] 04-21-2022 Functional Status N/A [facility] Evaluation note 09-13-2023 Note Date & Type [...] understanding and is agreeable to treatment plan [facility] Other Evaluation + Plan note Note Date & Type Note Facility Evaluation + Plan note Future Appointments Appointment Date:05/03/2022 03:00:00 PM Scheduled Provider:Jl FREDERICK MD Location:[facility] Appointment Type: Procedure 30 [facility] [place] Evaluation + Plan note Note Date & Type Note Facility Evaluation + Plan note Future Appointments Appointment Date:05/12/2022 03:40:00 PM Scheduled Provider:Jl FREDERICK MD Location:[facility] Appointment Type: Post Op 15 [facility] [place] Evaluation note Note Date & Type Note Facility Evaluation note No assessment information availa [facility] Work Phone: History general Narrative - Reported Note Date & Type Note Facility History general Narrative - Reported Type Medical History Anxiety disorder Medical History chronic depression Medical History thyriod Surgical History LEAP [facility] Other Hospital course Narrative Note Date & Type Note Facility Hospital course Narrative No data available for this section [facility] [place] [facility] Discharge instructions Note Date & Type Note Facility Hospital Discharge instructions No data available for this section [facility] [place] Progress note Note Date & Type Note Facility Progress note No data available for this section [facility] [place] Summary Purpose Family History No Family History Records FoundNo Family History Records FoundNo Family History Records FoundNo Family History Records Found No data available for this section Advance Directives No Advanced Directives Records FoundNo Advanced Directives Records FoundNo Advanced Directives Records FoundNo Advanced Directives Records Found Additional Source Comments Care Team (unrecognized sect ion and content) Personnel Name: Angelica De MD Address: Address: [facility] [facility] [address] [place] [address]- Team Status: Inactive Member Role Status Dates Shae Love APRN Attending Provider Active INFORMATION SOURCE (unrecogn ized section and content) DATE CREATED AUTHOR 10/20/2022 [facility] DATE CREATED AUTHOR AUTHOR'S ORGANIZ ATION 12/07/2023 [facility] DATE CREATED AUTHOR AUTHOR'S ORGANIZ ATION [facility]2024 [facility] DATE CREATED AUTHOR AUTHOR'S ORGANIZ ATION 12/02/2024 [facility] REASON FOR VISIT (unrecogniz ed section and [...] BE BASED ON THE PRIMARY CLINICAL RECORDS. [employer] [facility] provides no warranty or guarantee of the accuracy or completeness of information in this document.
== END 2024-12-03 13:56 | disposition home or self-care (01) ==
LOC: US 13:55
PROVIDERS: PCP Family Medicine; Visit Provider Surgery
DX: R22.42 Localized swelling, mass and lump, left lower limb (principal)
CPT/HCPCS: 76882

== ENCOUNTER 2024-12-16 09:54 | Outpatient (OUT) | payer BC, SELFPAY ==
--- NOTE | 2024-12-16 09:59 | XR_ITS ---
[address] [place] [address] Patient Name: LUCIA HERNDON MRN: [id number] date: 1980 Sex: F Assigned Patient Location: [facility] Current Patient Location: [facility] Accession/Order Number: [id number] Exam Date: 12/17/2024 22:29 Report Date: 12/17/2024 22:30 At the request of: TEA MENA DPMere Procedure: XR ankle LT min 3V XR ankle LT min 3V 12/16/2024 10:14 AM SIGNS AND SYMPTOMS: Left ankle pain PROTOCOL: Frontal, lateral, and oblique radiographs of the left ankle COMPARISON: None. FINDINGS: The ankle mortise is preserved. There is no evidence of fracture or dislocation. No significant soft tissue swelling. XR/XR ankle LT min 3V IMPRESSION: No acute bony injury. No significant soft tissue swelling. Impression dictated by: Donato Rockwell M.D.12/17/2024 10:30 PM Dictation Location: [place] [address] Electronically authenticated by: [id number] Y Date: 12/17/2024 22:30
--- OUTSIDE RECORDS SUMMARY | 2024-12-16 10:04 | XMS_ITS | CCD ---
Author Organization [facility] Care Team Providers Care Relocation Director Name Role Phone Angelica De Primary Care Physician [phone] DR ANGELICA DE Primary Care Unavailable BEA [...] Shae Love Unavailable RUBY Love Attending Provider [phone] Shae Love Attending Unavailable Shae Love Admitting Unavailable Jl FREDERICK Attending Unavailable Allergies Allergy Classification Reported Allergen(s) Allergy Type Date of Onset Reaction(s) Facility (7 sources) Latex; Translations: [Latex] Drug allergy 3 Eruption of skin (disorder), rash [facility] (6 sources) Sulfamethoxazole / Trimethoprim; Translations: [sulfamethoxazole-tr imethoprim] Drug Allergy Weal (disorder), hives [facility] (2 sources) natural latex rubber Drug allergy (disorder) [facility] (2 sources) Sulfamethoxazole / Trimethoprim Drug Allergy [facility] (1 source) Sulfamethoxazole Drug Allergy 3 [facility]ository (1 source) Trimethoprim Drug Allergy 3 [facility] Medications Current Medications Medication [...] Drug Class(es) Dates Sig (Normalized) Sig (Original) [place] (1 source) [place] Not- Taking Problems Active Problems Problem Classification [...] Test Name Value Interpretation Reference Range Facility Ambulatory Visit Summaryon 0 12-02-2024 Ambulatory Visit Summary Ambulatory Visit Summary JOSEPHINE HERNDON :1980 Visit Date:12/02/2024 Ambulatory Visit Instructions Your Diagnosis Subcutaneous nodule of left lower extremity Tests Performed US Extremity Non-Vascular Limited Left -- Results Pending -- Please visit your patient portal for your results or contact your primary care physician. Your Care Team Attending Physician - Jl FREDERICK MD Primary Care Physician - Angelica De MD This Is Your Medications List Contact prescribing physician if questions or concerns desvenlafaxine (desvenlafaxine 100 mg Tab-) diclofenac (diclofenac sodium 75 mg Oral EC Tab) hydrOXYzine (hydrOXYzine pamoate 25 mg Cap) levothyroxine (levothyroxine 75 mcg (0.075 mg) Tab) pantoprazole (Protonix 40 mg Tab-DR) quetiapine (quetiapine 100 mg Tab) valacyclovir (valacyclovir 500 mg Tab) Procedures Performed Excision of dermatofibroma (05/03/2022), laparoscopic cholecystectomy with intraoperative cholangiogram (07/08/2015), Abdominal hysterectomy, Diagnostic laparoscopy, LEEP, Total bilateral salpingectomy. Discharge Vitals Heart Rate (Peripheral) 72 Respiratory Rate 16 Blood Pressure 142/106 Height 163 cm Height 64 in Weight 71.2 kg Weight 156.969 lb BMI 26.8 Medications What How Much When Instructions Unchanged desvenlafaxine (desvenlafaxine 100 mg Tab-) 1 Tablets By Mouth Every day Contact prescribing physician if questions or concerns Unchanged diclofenac (diclofenac sodium 75 mg Oral EC Tab) 1 Tablets By Mouth 2 times a day Contact prescribing physician if questions or concerns Unchanged hydrOXYzine (hydrOXYzine pamoate 25 mg Cap) 1 Capsules By Mouth 4 times a day as needed for as needed for anxiety Contact prescribing physician if questions or concerns Unchanged levothyroxine (levothyroxine 75 mcg (0.075 mg) Tab) 1 Tablets By Mouth Every day Contact prescribing physician if questions or concerns Unchanged pantoprazole (Protonix 40 mg Tab-DR) 1 Tablets By Mouth Every day Contact prescribing physician if questions or concerns Unchanged quetiapine (quetiapine 100 mg Tab) 1 Tablets By Mouth At bedtime Contact prescribing physician if questions or concerns Unchanged valacyclovir (valacyclovir 500 mg Tab) 1 Tablets By Mouth Every day Contact prescribing physician if questions or concerns Allergies Latex (Rash) sulfamethoxazole-tri methoprim (Hives) Problems Ongoing - Any problem that you are currently receiving treatment for. 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 Migraine Psoriasis Patient Survey You may receive a survey via text or e-mail asking about your office visit. Please share your experience with us by completing your survey. We appreciate your feedback and thank you for choosing us for your care. Normal [facility] Drugs of Abuse, S/Jm 2023 Amphetamines, S/P Negative Normal Cutoff 20 [facility] Comment on above: Performed By: #### A DAU9S #### [facility] [address] [place] [address] Food Photographer: Trey Carroll MD #### CP, MARITZA, MG #### [facility] [address] [place] [address] Food Photographer: Belia Manjarrez MD Barbiturates, S/P Negative Normal Cutoff 50 [facility] Comment on above: Performed By: #### A DAU9S #### [facility] [address] [place] [address] Food Photographer: Trey Carroll MD #### CP, CDP, MG #### [facility] [address] [place] [address] Food Photographer: Belia Manjarrez MD Benzodiazepines, S/P Negative Normal Cutoff 50 [facility] Comment on above: Performed By: #### A DAU9S #### [facility] [address] [place] [address] Food Photographer: Trey Carroll MD #### CP, CDP, MG #### [facility] [address] [place], [place] [id number] Food Photographer: Belia Manjarrez MD Buprenorphine, S/P Negative Normal Cutoff 1 [facility] Comment on above: Performed By: #### A DAU9S #### [facility] [address] [place] [address] Food Photographer: Trey Carroll MD #### CP, CDP, MG #### [facility] [address] [place] [address] Food Photographer: Belia Manjarrez MD Cocaine, Serum/Plas Negative Normal Cutoff 20 [facility] Comment on above: Performed By: #### A DAU9S #### [facility] [address] [place] [address] Food Photographer: Trey Carroll MD #### CP, CDP, MG #### [facility] [address] [place] [address] Food Photographer: Belia Manjarrez MD Comment See Note Normal [facility] Comment on above: Result Comment: (NOT [...] developed and its performance characteristics determined by [facility]. It has not been cleared or approved by the [place] Food and Drug Administration. This test was performed in a CLIA certified laboratory and is intended for clinical purposes. Performed By: [facility] [address] [place] [id number] Financial Sales Assistant: Trace Vazquez MD, PhD CLIA Number: [id number] Performed By: #### A DAU9S #### [address] [address] Food Photographer: Trey Carroll MD #### CP, CDP, MG #### [facility] [address] [place] [address] Food Photographer: Belia Manjarrez MD Methadone, S/P Negative Normal Cutoff 25 [facility] Comment on above: Performed By: #### A DAU9S #### [facility] [address] [place] [address] Food Photographer: Trey Carroll MD #### CP, CDP, MG #### [facility] [address] [place] [address] Food Photographer: Belia Manjarrez MD Methamphetamine,S/P Negative Normal Cutoff 20 [facility] Comment on above: Performed By: #### A DAU9S #### [facility] [address] [place] [address] Food Photographer: Trey Carroll MD #### CP, CDP, MG #### [facility] [address] [place], [place] [id number] Food Photographer: Belia Manjarrez MD Opiates, Serum/Plas Negative Normal Cutoff 20 [facility] Comment on above: Performed By: #### A DAU9S #### [facility] [address] [place] [address] Food Photographer: Trey Carroll MD #### CP, CDP, MG #### [facility] [address] [place] [address] Food Photographer: Belia Manjarrez MD Oxycodone, S/P Negative Normal Cutoff 20 [facility] Comment on above: Performed By: #### A DAU9S #### [facility] [address] [place] [address] Food Photographer: Trey Carroll MD #### CP, CDP, MG #### [facility] [address] [place], [place] [id number] Food Photographer: Belia Manjarrez MD Phencyclidine, S/P Negative Normal Cutoff 10 [facility] Comment on above: Performed By: #### A DAU9S #### [facility] [address] [place] [address] Food Photographer: Trey Carroll MD #### CP, CDP, MG #### [facility] [address] [place], [place] [id number] Food Photographer: Belia Manjarrez MD THC, Serum/Plasma Negative Normal Cutoff 20 [facility] Comment on above: Performed By: #### A DAU9S #### [facility] [address] [place] [address] Food Photographer: Trey Carroll MD #### CP, CDP, MG #### [facility] [address] [place] [address] Food Photographer: Belia Manjarrez MD CBC with Diffon 06-12-2024 Abs. Basophil 0.04 k/uL Normal 0.00-0.20 [facility] Comment on above: Performed By: #### A DAU9S #### [facility] [address] [place] [address] Food Photographer: Trey Carroll MD #### HEATHER, CDP, MG #### [facility] [address] [place] [address] [place] [address] Food Photographer: Belia Manjarrez MD Abs.Imm.Granulocyte 0.06 k/uL Normal 0.00-0.30 [facility] Comment on above: Performed By: #### A DAU9S #### [facility] [address] [place] [address] Food Photographer: Trey Carroll MD #### HEATHER CDP, MG #### [address] [place] [address] Food Photographer: Belia Manjarrez MD Abs.Neutrophil (Seg) 6.02 k/uL Normal 1.50-8.10 [facility] Comment on above: Performed By: #### A DAU9S #### [facility] [address] [place] [address] Food Photographer: Trey Carroll MD #### CP, CDP, MG #### [facility] [address] [place] [address] Food Photographer: Belia Manjarrez MD Basophils/100 WBC (Bld) 0 % Normal 0-2 [facility] Comment on above: Performed By: #### A DAU9S #### [facility] [address] [place] [address] Food Photographer: Trey Carroll MD #### CP, CDP, MG #### [facility] [address] [place] [address] [place] [address] Food Photographer: Belia Manjarrez MD Eosinophils (Bld) [#/Vol] 0.16 10*3/uL Normal 0.00-0.44 [facility] Comment on above: Performed By: #### A DAU9S #### [facility] [address] [place] [address] Food Photographer: Trey Carroll MD #### HEATHER, CDP, MG #### [address] [place] [address] Food Photographer: Belia Manjarrez MD Eosinophils/100 WBC (Bld) 2 % Normal 1-4 [facility] Comment on above: Performed By: #### A DAU9S #### [facility] [address] [place] [address] Food Photographer: Trey Carroll MD #### HEATHER CDP, MG #### [address] [place] [address] Food Photographer: Belia Manjarrez MD Erythrocyte distribution width (RBC) [Ratio] 13.3 % Normal 11.8-14.4 [facility] Comment on above: Performed By: #### A DAU9S #### [facility] [address] [place] [address] Food Photographer: Trey Carroll MD #### CP, CDP, MG #### [address] [place] [address] Food Photographer: Belia Manjarrez MD Hematocrit (Bld) [Volume fraction] 41.0 % Normal 36.3-47.1 [facility] Comment on above: Performed By: #### A DAU9S #### [facility] [address] [place] [address] Food Photographer: Trey Carroll MD #### CP, CDP, MG #### [facility] [address] [place] [address] Food Photographer: Belia Manjarrez MD Hemoglobin (Bld) [Mass/Vol] 14.1 g/dL Normal 11.9-15.1 [facility] Comment on above: Performed By: #### A DAU9S #### [facility] [address] [place] [address] Food Photographer: Trey Carroll MD #### CP, CDP, MG #### [facility] [address] [place] [address] Food Photographer: Belia Manjarrez MD Immature granulocytes/100 WBC (Bld) 1 % High 0 [facility] Comment on above: Performed By: #### A DAU9S #### [facility] [address] [place] [address] Food Photographer: Trey Carroll MD #### HEATHER, CDP, MG #### [facility] [address] [place] [address] [place] [address] Food Photographer: Belia Manjarrez MD Lymphocytes (Bld) [#/Vol] 3.39 10*3/uL Normal 1.10-3.70 [facility] Comment on above: Performed By: #### A DAU9S #### [facility] [address] [place] [address] Food Photographer: Trey Carroll MD #### CP, CDP, MG #### [facility] [address] [place] [address] Food Photographer: Belia Manjarrez MD Lymphocytes/100 WBC (Bld) 33 % Normal 24-43 [facility] Comment on above: Performed By: #### A DAU9S #### [facility] [address] [place] [address] Food Photographer: Trey Carroll MD #### CP, CDP, MG #### [facility] [address] [place] [address] Food Photographer: Belia Manjarrez MD MCH (RBC) [Entitic mass] 30.9 pg Normal 25.2-33.5 [facility] Comment on above: Performed By: #### A DAU9S #### [facility] [address] [place] [address] Food Photographer: Trey Carroll MD #### HEATHER CDP, MG #### [facility] [address] [place] [address] Food Photographer: Belia Manjarrez MD MCHC (RBC) [Mass/Vol] 34.4 g/dL Normal 28.4-34.8 [facility] Comment on above: Performed By: #### A DAU9S #### [facility] [address] [place] [address] Food Photographer: Trey Carroll MD #### HEATHER CDP, MG #### [facility] [address] [place] [address] Food Photographer: Belia Manjarrez MD MCV (RBC) [Entitic vol] 89.9 fL Normal 82.6-102.9 [facility] Comment on above: Performed By: #### A DAU9S #### [facility] [address], [place] [id number] Food Photographer: Trey Carroll MD #### CP, CDP, MG #### [facility] [address] [place] [address] Food Photographer: Belia Manjarrez MD Monocytes (Bld) [#/Vol] 0.67 10*3/uL Normal 0.10-1.20 [facility] Comment on above: Performed By: #### A DAU9S #### [facility] [address] [place] [address] Food Photographer: Trey Carroll MD #### CP, CDP, MG #### [facility] [address] [place] [address] Food Photographer: Belia Manjarrez MD Monocytes/100 WBC (Bld) 7 % Normal 3-12 [facility] Comment on above: Performed By: #### A DAU9S #### [facility] [address] [place] [address] Food Photographer: Trey Carroll MD #### CP, CDP, MG #### [facility] [address] [place] [address] Food Photographer: Belia Manjarrez MD Neutrophil (Seg) 57 % Normal 36-65 [facility] Comment on above: Performed By: #### A DAU9S #### [facility] [address] [place] [address] Food Photographer: Trey Carroll MD #### HEATHER, CDP, MG #### [facility] [address] [place] [address] Food Photographer: Belia Manjarrez MD NRBC Automated 0.0 per 100 WBC Normal 0.0 [facility] Comment on above: Performed By: #### A DAU9S #### [facility] [address] [place] [address] Food Photographer: Trey Carroll MD #### CP, CDP, MG #### [facility] [address] [place] [address] Food Photographer: Belia Manjarrez MD Platelet mean volume (Bld) [Entitic vol] 9.6 fL Normal 8.1-13.5 [facility] Comment on above: Performed By: #### A DAU9S #### [facility] [address] [place] [address] Food Photographer: Trey Carroll MD #### CP, CDP, MG #### [facility] [address] [place] [address] Food Photographer: Belia Manjarrez MD Platelets (Bld) [#/Vol] 314 10*3/uL Normal 138-453 [facility] Comment on above: Performed By: #### A DAU9S #### [facility] [address] [place] [address] Food Photographer: Trey Carroll MD #### CP, CDP, MG #### [facility] [address] [place] [address] Food Photographer: Belia Manjarrez MD RBC (Bld) [#/Vol] 4.56 10*6/uL Normal 3.95-5.11 [facility] Comment on above: Performed By: #### A DAU9S #### [facility] [address] [place] [address] Food Photographer: Trey Carroll MD #### HEATHER, CDP, MG #### [facility] [address] [place] [address] Food Photographer: Belia Manjarrez MD WBC (Bld) [#/Vol] 10.3 10*3/uL Normal 3.5-11.3 [facility] Comment on above: Performed By: #### A DAU9S #### [facility] [address] [place] [address] Food Photographer: Trey Carroll MD #### CP, CDP, MG #### [facility] [address] [place] [address] Food Photographer: Belia Manjarrez MD Comp Metabolic Profon 2023 Albumin [Mass/Vol] 4.4 g/dL Normal 3.5-5.2 [facility] Comment on above: Performed By: #### A DAU9S #### [facility] [address] [place] [address] Food Photographer: Trey Carroll MD #### CP, CDP, MG #### [facility] [address] [place], [place] 6[address] Food Photographer: Belia Manjarrez MD Albumin/Glob Ratio 1.5 Normal 1.0-2.5 [facility] Comment on above: Performed By: #### A DAU9S #### [facility] [address] [place] [address] Food Photographer: Trey Carroll MD #### HEATHER, CDP, MG #### [facility] [address] [place] [address] Food Photographer: Belia Manjarrez MD Alkaline Phos 108 U/L High 35-104 [facility] Comment on above: Performed By: #### A DAU9S #### [facility] [address] [place] [address] Food Photographer: Trey Carroll MD #### HEATHER, CDP, MG #### [facility] [address] [place] [address] Food Photographer: Belia Manjarrez MD ALT [Catalytic activity/Vol] 46 U/L High 5-33 [facility] Comment on above: Performed By: #### A DAU9S #### [facility] [address] [place] [address] Food Photographer: Trey Carroll MD #### CP, CDP, MG #### [facility] [address] [place] [address] Food Photographer: Belia Manjarrez MD Anion gap [Moles/Vol] 10 mmol/L Normal 9-17 [facility] Comment on above: Performed By: #### A DAU9S #### [facility] [address] [place] [address] Food Photographer: Trey Carroll MD #### CP, CDP, MG #### [facility] [address] [place] [address] Food Photographer: Belia Manjarrez MD AST [Catalytic activity/Vol] 32 U/L High <32 [facility] Comment on above: Performed By: #### A DAU9S #### [facility] [address] [place] [address] Food Photographer: Trey Carroll MD #### CP, CDP, MG #### [facility] [address] [place] [address] Food Photographer: Belia Manjarrez MD Bilirubin [Mass/Vol] 0.4 mg/dL Normal 0.3-1.2 [facility] Comment on above: Performed By: #### A DAU9S #### [facility] [address] [place] [address] Food Photographer: Trey Carroll MD #### CP, CDP, MG #### [facility] [address] [place] [address] Food Photographer: Belia Manjarrez MD BUN/CRE Ratio 12 Normal 9-20 [facility] Comment on above: Performed By: #### A DAU9S #### [facility] [address] [place] [address] Food Photographer: Trey Carroll MD #### CP, CDP, MG #### [facility] [address] [place] [address] Food Photographer: Belia Manjarrez MD Calcium [Mass/Vol] 9.1 mg/dL Normal 8.6-10.4 [facility] Comment on above: Performed By: #### A DAU9S #### [facility] [address] [place] [address] Food Photographer: Trey Carroll MD #### CP, CDP, MG #### [facility] [address] [place] [address] Food Photographer: Belia Manjarrez MD Chloride [Moles/Vol] 106 mmol/L Normal 98-107 [facility] Comment on above: Performed By: #### A DAU9S #### [facility] [address], [place] [id number] Food Photographer: Trey Carroll MD #### CP, CDP, MG #### [facility] [address] [place] [address] Food Photographer: Belia Manjarrez MD CO2 [Moles/Vol] 26 mmol/L Normal 20-31 [facility] Comment on above: Performed By: #### A DAU9S #### [facility] [address], [place] [id number] Food Photographer: Trey Carroll MD #### CP, CDP, MG #### [facility] [address] [place] [address] Food Photographer: Belia Manjarrez MD Creatinine [Mass/Vol] 0.5 mg/dL Normal 0.5-0.9 [facility] Comment on above: Performed By: #### A DAU9S #### [facility] [address] [place] [address] Food Photographer: Trey Carroll MD #### CP, CDP, MG #### [facility] [address] [place] [address] Food Photographer: Belia Manjarrez MD GFR/1.73 sq M.predicted among non-blacks MDRD (S/P/Bld) [Vol rate/Area] mL/min/{1.73_m2} Normal >60 [facility] Comment on above: Result Comment: These [...] By: #### A DAU9S #### [facility] [address] [place] [id number] Food Photographer: Trey Carroll MD #### HEATHER, CDP, MG #### [facility] [address] [place] [address] Food Photographer: Belia Manjarrez MD Glucose [Mass/Vol] 90 mg/dL Normal 70-99 [facility] Comment on above: Performed By: #### A JIMU9S #### [address] [id number] Food Photographer: Trey Carroll MD #### HEATHER CDP, MG #### [address] [place] [address] Food Photographer: Belia Manjarrez MD Potassium [Moles/Vol] 4.2 mmol/L Normal 3.7-5.3 [facility] Comment on above: Performed By: #### A DAU9S #### [address] [id number] Food Photographer: Trey Carroll MD #### HEATHER CDP, MG #### [facility] [address] [place] [address] [place] [address] Food Photographer: Belia Manjarrez MD Protein [Mass/Vol] 7.4 g/dL Normal 6.4-8.3 [facility] Comment on above: Performed By: #### A DAU9S #### [facility] [address], [place] [id number] Food Photographer: Trey Carroll MD #### HEATHER CDP, MG #### [address] [place] [address] Food Photographer: Belia Manjarrez MD Sodium [Moles/Vol] 142 mmol/L Normal 135-144 [facility] Comment on above: Performed By: #### A DAU9S #### [facility] [address] [place] [address] Food Photographer: Trey Carroll MD #### CP, CDP, MG #### [address] [place], [place] [address] Food Photographer: Belia Manjarrez MD Urea nitrogen [Mass/Vol] 6 mg/dL Normal 6-20 [facility] Comment on above: Performed By: #### A DAU9S #### [facility] [address], [place] [id number] Food Photographer: Trey Carroll MD #### CP, CDP, MG #### [address] [place], [place] 8[address]683 Food Photographer: Belia Manjarrez MD Drug Scr, Abuse, Uron 2023 Amphetamine(s),Ur Negative Normal NEG [facility] Comment on above: Result Comment: (Positive cutoff 1000 ng/mL) Performed By: #### D AU #### [address] [place] [address] Food Photographer: Belia Manjarrez MD Barbiturate(s),Ur Negative Normal NEG [facility] Comment on above: Result Comment: (Positive cutoff 200 ng/mL) Performed By: #### D AU #### [address] [place] [address] Food Photographer: Belia Manjarrez MD Benzodiazepine(s) Negative Normal NEG [facility] Comment on above: Result Comment: (Positive cutoff 200 ng/mL) Performed By: #### D AU #### [address] [place], [place] [id number] Food Photographer: Belia Manjarrez MD Buprenorphrine, Ur Negative Normal NEG [facility] Comment on above: Result Comment: (Positive cutoff 5 ng/ml) Performed By: #### D AU #### [facility] [address] [place] [address] [place], [place] [id number] Food Photographer: Belia Manjarrez MD Cannabinoid(s),Ur Negative Normal [facility] Comment on above: Result Comment: (Positive cutoff 50 ng/mL) Performed By: #### D AU #### [facility] [address] [place] [address] [place] [address] Food Photographer: Belia Manjarrez MD Cocaine Metabolite Negative [facility] Comment on above: Result Comment: (Positive cutoff 300 ng/mL) Performed By: #### D AU #### [address] [place] [id number] Food Photographer: Belia Manjarrez MD Fentanyl, Urine Negative Normal [facility] Comment on above: Result Comment: (Positive cutoff 5 ng/ml) Performed By: #### D AU #### [address] [place] [id number] Food Photographer: Belia Manjarrez MD Interpretive Info Assay provides medical screening only. The absence of expected drug(s) and/or Normal [facility] Comment on above: Result Comment: meta bolite(s) may indicate diluted or adulterated urine, limitations of testing or timing of collection. Testing for legal purposes should be confirmed by another method. To request confirmation of test result, please call the lab within 7 days of sample submission. Performed By: #### D AU #### [address] [place], [place] [id number] Food Photographer: Belia Manjarrez MD Methadone Ql (U) Negative Normal NEG [facility] Comment on above: Result Comment: (Positive cutoff 300 ng/mL) Performed By: #### D AU #### [address] [place], [place] [id number] Food Photographer: Belia Manjarrez MD Opiate(s), Ur Negative Normal NEG [facility] Comment on above: Result Comment: (Positive cutoff 300 ng/mL) Performed By: #### D AU #### [facility] [address] [place] [address] Dr[address] [place], [place] [id number] Food Photographer: Belia Manjarrez MD Oxycodone, Urine Negative Normal NEG [facility] Comment on above: Result Comment: (Positive cutoff 100 ng/mL) Performed By: #### D AU #### [address] [place] [address] Food Photographer: Belia Manjarrez MD Phencyclidine, Ur Negative Normal NEG [facility] Comment on above: Result Comment: (Positive cutoff 25 ng/mL) Performed By: #### D AU #### [address] [place], [place] [id number] Food Photographer: Belia Manjarrez MD Magnesiumon 06-12-2024 Magnesium [Mass/Vol] 2.2 mg/dL Normal 1.6-2.6 [facility] Comment on above: Performed By: #### A DAU9S #### [facility] [address] [place] [address] Food Photographer: Trey Carroll MD #### HEATHER, CDP, MG #### [facility] [address] [place] [address] [place] [address] Food Photographer: Belia Manjarrez MD XR knee LT 4V*on 09-13-2023 XR knee LT 4V* [facility] [employer] Other XR knee LT 4V* [facility] [employer] Other XR knee LT 4V* [address] [place] [address] [employer] Other XR knee LT 4V* [place] [address] No rth [employer] Other XR knee LT 4V* XRay Report [employer] Other XR knee LT 4V* Signed [employer] Other XR knee LT 4V* Patient: Josephine Herndon MR#: [id number] [employer] Other XR knee LT 4V* 8 [employer] Other XR knee LT 4V* : 1980 Acct:[id number] [employer] Other XR knee LT 4V* Age/Sex: 43 / F ADM Date: 09/13/23 [employer] Other XR knee LT 4V* Loc: XDUCLY Room: Type: REG CLI [employer] Other XR knee LT 4V* Attending Dr: Shae Love APRN [employer] Other XR knee LT 4V* Copies to: Shae Love APRN [employer] Other XR knee LT 4V* Ordering Provider: Shae Love APRN [employer] Other XR knee LT 4V* Date of Service: 09/13/23 [employer] Other XR knee LT 4V* XR/XR knee LT 4V*: Injury [employer] Other XR knee LT 4V* XR knee LT 4V* 09/13/2023 10:51 AM [employer] Other XR knee LT 4V* SIGNS AND SYMPTOMS: Twisting injury to left knee with pain and swelling medially [employer] Other XR knee LT 4V* PROTOCOL: Frontal, lateral, and oblique radiographs of the left knee [employer] Other XR knee LT 4V* COMPARISON: None [facility] [employer] Other XR knee LT 4V* FINDINGS: [employer] Other XR knee LT 4V* The joint spaces are preserved. There is a moderate joint effusion. There is no evidence of fracture [employer] Other XR knee LT 4V* or dislocation. No significant soft tissue swelling. [employer] Other XR knee LT 4V* XR/XR knee LT 4V* [employer] Other XR knee LT 4V* IMPRESSION: [employer] Other XR knee LT 4V* No fracture. [employer] Other XR knee LT 4V* There is a moderate joint effusion. [employer] Other XR knee LT 4V* Impression dictated by: Donato Rockwell M.D.09/13/2023 11:19 AM [employer] Other XR knee LT 4V* Dictation Location: [place] [address] [employer] Other XR knee LT 4V* Transcribed By: NICKY 09/13/23 [facility] [employer] Other XR knee LT 4V* Dictated By: Donato Rockwell II, MD 09/13/23 [facility] [employer] Other XR knee LT 4V* Signed By: [employer] Other XR knee LT 4V* 09/13/23 [employer] Other XR knee LT 4V* [facility] Main [place] [address] [place] [address] XRay Report Signed Patient: Josephine Herndon MR#: [id number] : 1980 Acct:[id number] Age/Sex: 43 / F ADM Date: 09/13/23 Loc: XDUCLY Room: Type: [facility] Attending Dr: Shae Love APRN Copies [...] Donato Rockwell M.D.09/13/2023 11:19 AM Dictation Location: [place] [address] Transcribed By: [facility] 09/13/23 1119 Dictated By: Donato Rockwell II, MD 09/13/23 1118 Signed By: 09/13/23 11[address] [facility] [address] CHEST WO CONon 10-10-2022 CT [...] AMANDA CASSIDY Date: 2022-10-10 10:35 Normal [facility] Covid-19 PCR (CVDTB)on SARS-CoV-2 (COVID-19) RNA RAYMOND+probe Ql (Unsp spec) Not detected Normal NOT DETECTED [facility] Comment on above: Result Comment: [...] for this test is supported by the Bioanalyst of Health and Human Service's declaration that [...] longer be used). Performed By: #### [facility] #### [facility] [address] [place] [address] CHEST WO CONon [...] by: BELIA HENDRICKS Date: 2022-09-01 09:55 Normal [facility] MAMM SCREEN 3D GUSTAVO CADon 09-01-2022 MG MAMM SCREEN 3D GUSTAVO CAD Patient: JOSEPHINE HERNDON Exam Date: 09/01/2022 : 1980 Gender:F Ordering : DR ANGELICA DE . Admission #: [id number] Family : Order #: [id number] CLICK HERE TO VIEW EXAM RADIOLOGY REPORT [...] bladder cancer at age 59. LOCATION: [facility] BREAST COMPOSITION: Scattered areas fibroglandular [...] Hendricks MD on 09/01/2022 at 09:32 Normal [facility] PAP ACOG PANEL 2: 21 to 29on 06-02-2022 . . Normal [facility] Comment on above: Result Comment: Perf ormed at: WB Performed By: #### [id number] #### [facility] [address] [address] [address] Les Bryan Age Gdln ACOG Testing 30-65 Normal [facility] Comment on above: Performed By: #### [id number] #### [facility] [address] [place] [address] Dr. Les Bryan DIAGNOSIS: Comment Normal [facility] Comment on above: Result Comment: NEGA TIVE FOR INTRAEPITHELIAL LESION OR MALIGNANCY. Performed at: WB Performed By: #### [id number] #### [facility] [address] [place] [address] Dr. Les Bryan HPV Aptima Negative Normal Negative [facility] Comment on above: Result Comment: This nucleic acid amplification test detects fourteen high-risk HPV types (16,18,31,33,35,39,45,51,52,56,58,59,66,68) without differentiation. Performed at: =G Performed By: #### [id number] #### [facility] [address] [place] [address] Dr. Les Bryan Methodology: Comment Normal [facility] Comment on above: Result Comment: This liquid based ThinPrep(R) pap test was screened with the use of an image guided system. Performed at: WB Performed By: #### [id number] #### [facility] [address] [place] [address] Dr. Les Bryan Note: Comment Normal [facility] Comment on above: Result Comment: The Pap smear is a screening test designed to aid in the detection of premalignant and malignant conditions of the uterine cervix. It is not a diagnostic procedure and should not be used as the sole means of detecting cervical cancer. Both false-positive and false-negative reports do occur. . Performed at: WB Performed By: #### [id number] #### [facility] [address] [place] [address] Dr. Les Byran Performed by: Comment Normal [facility] Comment on above: Result Comment: Bella [employer] (ASCP) Performed at: WB Performed By: #### [id number] #### [facility] [address] [address] [address] Les Bryan Specimen adequacy: Comment Normal [facility] Comment on above: Result Comment: Sati sfactory for evaluation. Endocervical and/or squamous metaplastic cells (endocervical component) are present. Performed at: WB Performed By: #### [id number] #### [facility] [address] [address] [address] Les Bryan HEPATITIS PANEL, ACUTEon HBsAg Screen Negative Normal Negative [facility] Comment on above: Performed By: #### H EPACUT #### [facility] [address] [place] [address] [address] Les Bryan HCV AB 0.2 s/co ratio Normal 0.0-0.9 [facility] Comment on above: Performed By: #### H EPACUT #### [facility] [address] [address] [address] Les Bryan Hep A Ab, IgM Negative Normal Negative [facility] Comment on above: Performed By: #### H EPACUT #### [facility] [address] [place] [address] [address] Les Bryan Hep B Core Ab, IgM Negative Normal Negative [facility] Comment on above: Performed By: #### H EPACUT #### [facility] [address] [address] [address] Les Bryan Interpretation: Comment Normal [facility] Comment on above: Result Comment: Nega tive Not infected with HCV, unless recent infection is suspected or other evidence exists to indicate HCV infection. Performed By: #### H EPACUT #### [facility] [address] [address] [address] Les Bryan INSULINon 04-18-2022 Insulin 18.8 uIU/mL Normal 2.6-24.9 [facility] Comment on above: Performed By: #### I NSULIN #### [facility] [address] [place] [address] Dr. Les Bryan BILIRUBIN CONJUGATED (DIRECT )on 04-17-2022 BILI, CONJUGATED 0.1 mg/dL Normal 0.0-0.2 [facility] Comment on above: Performed By: #### RICARDO STEVENSON #### [facility] [address] [place] [address] Dr. Les Bryan BNPon 04-17-2022 Natriuretic peptide B (Bld) [Mass/Vol] 12.0 pg/mL Normal <=450.0 [facility] Comment on above: Performed By: #### RICARDO STEVENSON #### [facility] [address] [place] [address] Dr. Les Bryan CBC AUTO DIFFon 04-17-2022 BASO # 0.1 103/ul Normal 0.0-0.1 [facility] Comment on above: Performed By: #### C BC #### [facility] [address] [place] [address] Dr. Les Bryan Basophils/100 WBC (Bld) 0.6 % Normal 0.2-2.0 [facility] Comment on above: Performed By: #### C BC #### [facility] [address] [place] [address] Dr. Les Bryan EO # 0.3 103/ul Normal 0.0-0.7 [facility] Comment on above: Performed By: #### C BC #### [facility] [address] [place] [address] Dr. Les Bryan Eosinophils/100 WBC (Bld) 3.0 % Normal 0.9-7.0 [facility] Comment on above: Performed By: #### C BC #### [facility] [address] [place] [address] Dr. Les Bryan Erythrocyte distribution width (RBC) [Ratio] 13.2 % Normal 11.0-15.0 [facility] Comment on above: Performed By: #### C BC #### [facility] [address] [place] [address] Dr. Les Bryan Hematocrit (Bld) [Volume fraction] 40.8 % Normal 36.0-48.0 [facility] Comment on above: Performed By: #### C BC #### [facility] [address] [place] [address] Dr. Les Bryan Hemoglobin (Bld) [Mass/Vol] 13.4 g/dL Normal 12.0-16.0 [facility] Comment on above: Performed By: #### C BC #### [facility] [address] [place] [address] Dr. Les Bryan IG # 0.07 10e3/ul Critically high 0.00-0.03 [facility] Comment on above: Performed By: #### C BC #### [facility] [address] [place] [address] Dr. Les Bryan IG % 0.8 % Critically high 0.0-0.5 [facility] Comment on above: Performed By: #### C BC #### [facility] [address] [place] [address] Dr. Les Bryan LYMPH # 2.8 103/ul Normal 1.2-3.8 [facility] Comment on above: Performed By: #### C BC #### [facility] [address] [place] [address] Dr. Les Bryan Lymphocytes/100 WBC (Bld) 31.7 % Normal 20.5-60.0 [facility] Comment on above: Performed By: #### C BC #### [facility] [address] [place] [address] Dr. Les Bryan MANUAL DIFF REQ NO Normal [facility] Comment on above: Performed By: #### C BC #### [facility] [address] [place] [address] Dr. Les Bryan MCH (RBC) [Entitic mass] 29.5 pg Normal 26.7-34.0 [facility] Comment on above: Performed By: #### C BC #### [facility] [address] [place] [address] Dr. Les Bryan MCHC (RBC) [Mass/Vol] 32.8 g/dL Normal 29.9-35.2 [facility] Comment on above: Performed By: #### C BC #### [facility] [address] [address] [address] Les Bryan MCV (RBC) [Entitic vol] 89.9 fL Normal 81.0-99.0 [facility] Comment on above: Performed By: #### C BC #### [facility] [address] [place] [address] [address] Les Bryan MONO # 0.4 103/ul Normal 0.3-0.8 [facility] Comment on above: Performed By: #### C BC #### [facility] [address] [address] [address] Les Bryan Monocytes/100 WBC (Bld) 4.7 % Normal 1.7-12.0 [facility] Comment on above: Performed By: #### C BC #### [facility] [address] [place] [address] Dr. Les Bryan NEUT # 5.3 103/ul Normal 1.4-6.5 [facility] Comment on above: Performed By: #### C BC #### [facility] [address] [place] [address] Dr. Les Bryan Neutrophils/100 WBC (Bld) 59.2 % Normal 43.0-75.0 [facility] Comment on above: Performed By: #### C BC #### [facility] [address] [place] [address] Dr. Les Bryan Platelet mean volume (Bld) [Entitic vol] 9.1 fL Critically low 9.5-13.5 [facility] Comment on above: Performed By: #### C BC #### [facility] [address] [place] [address] Dr. Les Bryan PLT 309 103/ul Normal 150-450 [facility] Comment on above: Performed By: #### C BC #### [facility] [address] [place] [address] Dr. Les Bryan RBC 4.54 106/ul Normal 4.20-5.40 [facility] Comment on above: Performed By: #### C BC #### [facility] [address] [place] [address] Dr. Les Bryan WBC 8.9 103/ul Normal 4.0-11.0 [facility] Comment on above: Performed By: #### C BC #### [facility] [address] [place] [address] Dr. Les Bryan FREE T3on 04-17-2022 FREE T3 2.02 pg/mlL Critically low 2.18-3.98 [facility] Comment on above: Performed By: #### RICARDO STEVENSON #### [facility] [address] [place] [address] Dr. Les Bryan FREE THYROXINE INDEX T7on FTI 2.07 Normal 1.30-4.50 [facility] Comment on above: Performed By: #### RICARDO STEVENSON #### [facility] [address] [place] [address] Dr. Les Bryan T3U 30.0 % Normal 30.0-39.0 [facility] Comment on above: Performed By: #### RICARDO STEVENSON #### [facility] [address] [place] [address] Dr. Les Bryan T4 [Mass/Vol] 6.90 ug/dL Normal 4.80-13.90 [facility] Comment on above: Performed By: #### RICARDO STEVENSON #### [facility] [address] [place] [address] Dr. Les Bryan GLYCOHEMOGLOBIN A1Con 2021 ADA RECOMMENDATION SEE BELOW Normal [facility] Comment on above: Result Comment: ADA RECOMMENDED LIMIT 4.0 - 6.0 ADA THERAPEUTIC TARGET < 7.0 ACTION SUGGESTED > 7.0 Performed By: #### A 1C #### [facility] [address] [place] [address] Dr. Les Bryan Glucose [Mass/Vol] 120 mg/dL Normal [facility] Comment on above: Performed By: #### A 1C #### [facility] [address] [place] [address] Dr. Les Bryan HbA1c (Bld) [Mass fraction] 5.8 % Normal 4.5-6.2 [facility] Comment on above: Performed By: #### A 1C #### [facility] [address] [address] [address] Lse Bryan IRONon 04-17-2022 Iron [Mass/Vol] 66.0 ug/dL Normal 50.0-170.0 [facility] Comment on above: Performed By: #### BARBER STEVENSONRO #### [facility] [address] [address] [address] Les Bryan LIPID PROFILEon 04-17-2022 CHOL-HDL RATIO NORM SEE BELOW Normal [facility] Comment on above: Result Comment: 3.3 - 4.4 LOW RISK 4.4 - 7.1 AVERAGE RISK 7.1 - 11.0 MODERATE RISK >11.0 HIGH RISK Performed By: #### BARBER STEVENSONRO #### [facility] [address] [address] [address] Les Bryan Cholesterol [Mass/Vol] 244 mg/dL Critically high <=200 [facility] Comment on above: Performed By: #### BARBER STEVENSONRO #### [facility] [address] [address] [address] Les Bryan Cholesterol in HDL [Mass/Vol] 55 mg/dL Normal 40-60 [facility] Comment on above: Performed By: #### BARBER STEVENSONRO #### [facility] [address] [address] [address] Les Bryan Cholesterol in LDL [Mass/Vol] 155.4 mg/dL Normal [facility] Comment on above: Performed By: #### BARBER STEVENSONRO #### [facility] [address] [address] [address] Les Bryan Cholesterol.total/Ch olesterol in HDL [Mass ratio] 4.4 {ratio} Normal [facility] Comment on above: Performed By: #### Andi GUY UMICRO #### [facility] [address] [address] [address] Les Bryan HDL NORMAL > or = 60 mg/dl - LOW CARDIOVASCULAR RISK <40 mg/dl - HIGH CARDIOVASCULAR RISK Normal [facility] Comment on above: Performed By: #### Andi GUY UMICRO #### [facility] [address] [place] [address] Dr. Les Bryan LDL CALC NORMAL SEE BELOW Normal [facility] Comment on above: Result Comment: <100 mg/dl OPTIMAL 100 - 129 mg/dl NEAR OR ABOVE OPTIMAL 130 - 159 mg/dl BORDERLINE HIGH 160 - 189 mg/dl HIGH >190 mg/dl VERY HIGH Performed By: #### Andi GUY UMICRO #### [facility] [address] [address] [address] Les Bryan Triglyceride [Mass/Vol] 168 mg/dL Critically high <=150 [facility] Comment on above: Performed By: #### Andi GUY UMICRO #### [facility] [address] [place] [address] Dr. Les Bryan VLDL CALC 33.6 mg/dL Normal [facility] Comment on above: Performed By: #### Andi GUY UMICRO #### [facility] [address] [place] [address] Dr. Les Bryan PROF 14(COMP METB)on 022 Albumin [Mass/Vol] 3.9 g/dL Normal 3.4-5.0 [facility] Comment on above: Performed By: #### Andi GUY UMICRO #### [facility] [address] [place] [address] Dr. Les Bryan Albumin/Globulin [Mass ratio] 0.9 {ratio} Normal [facility] Comment on above: Performed By: #### Andi GUY UMICRO #### [facility] [address] [place] [address] Dr. Les Bryan ALP [Catalytic activity/Vol] 137 U/L Critically high 46-116 [facility] Comment on above: Performed By: #### Andi GUY UMICRO #### [facility] [address] [address] [address] Les Bryan ALT [Catalytic activity/Vol] 104 U/L Critically high 14-59 [facility] Comment on above: Performed By: #### RICARDO STEVENSON #### [facility] [address] [place] [address] Dr. Les Bryan Anion gap [Moles/Vol] 13.3 mmol/L Normal [facility] Comment on above: Performed By: #### BARBER STEVENSONRO #### [facility] [address] [place] [address] Dr. Les Bryan AST [Catalytic activity/Vol] 59 U/L Critically high 15-37 [facility] Comment on above: Performed By: #### BARBER STEVENSONRO #### [facility] [address] [place] [address] Dr. Les Bryan Bilirubin [Mass/Vol] 0.3 mg/dL Normal 0.2-1.0 [facility] Comment on above: Performed By: #### RICARDO STEVENSON #### [facility] [address] [place] [address] Dr. Les Bryan Calcium [Mass/Vol] 9.0 mg/dL Normal 8.5-10.1 [facility] Comment on above: Performed By: #### RICARDO STEVENSON #### [facility] [address] [place] [address] Dr. Les Bryan Chloride [Moles/Vol] 104 mmol/L Normal 98-107 [facility] Comment on above: Performed By: #### BARBER STEVENSONRO #### [facility] [address] [place] [address] Dr. Les Bryan CO2 [Moles/Vol] 25.0 mmol/L Normal 21.0-32.0 [facility] Comment on above: Performed By: #### RICARDO STEVENSON #### [facility] [address] [place] [address] Dr. Les Bryan Creatinine [Mass/Vol] 0.70 mg/dL Normal 0.55-1.02 [facility] Comment on above: Performed By: #### BARBER STEVENSONRO #### [facility] [address] [address] [address] Les Bryan EGFR-AF ERITREAN 111 mL/min/1.73m2 Normal >=60 [facility] Comment on above: Performed By: #### BARBER STEVENSONRO #### [facility] [address] [place] [address] Dr. Les Bryan EGFR-NON AF ERITREAN 92 mL/min/1.73m2 Normal >=60 [facility] Comment on above: Performed By: #### Andi UGY UMICRO #### [facility] [address] [place] [address] Dr. Les Bryan Globulin (S) [Mass/Vol] 4.3 g/dL Normal [facility] Comment on above: Performed By: #### Andi GUY UMICRO #### [facility] [address] [place] [address] Dr. Les Bryan Glucose [Mass/Vol] 104 mg/dL Normal 74-106 [facility] Comment on above: Performed By: #### Andi GUY UMICRO #### [facility] [address] [place] [address] Dr. Les Bryan Potassium [Moles/Vol] 4.3 mmol/L Normal 3.5-5.1 [facility] Comment on above: Performed By: #### Andi GUY UMICRO #### [facility] [address] [place] [address] Dr. Les Bryan Protein [Mass/Vol] 8.2 g/dL Normal 6.4-8.2 [facility] Comment on above: Performed By: #### Andi GUY, UMICRO #### [facility] [address] [place] [address] Dr. Les Bryan Sodium [Moles/Vol] 138 mmol/L Normal 136-145 [facility] Comment on above: Performed By: #### Andi GUY, UMICRO #### [facility] [address] [place] [address] Dr. Les Bryan Urea nitrogen [Mass/Vol] 10.0 mg/dL Normal 7.0-18.0 [facility] Comment on above: Performed By: #### RICARDO STEVENSON #### [facility] [address] [place] [address] Dr. Les Bryan Urea nitrogen/Creatinine [Mass ratio] 14.3 mg/mg Normal [facility] Comment on above: Performed By: #### RICARDO STEVENSON #### [facility] [address] [place] [address] Dr. Les Bryan TSHon 04-17-2022 TSH 4.067 uIU/mL Critically high 0.358-3.740 [facility] Comment on above: Performed By: #### T SH, DBIL, BNP, FT3, T7, LIPID, CMP #### [facility] [address] [place] [address] Dr. Les Bryan INSULINon 04-06-2022 Insulin 34.6 uIU/mL Critically high 2.6-24.9 [facility] Comment on above: Performed By: #### RICARDO STEVENSON #### [facility] [address] [place] [address] Dr. eLs Bryan T4 LABCORPon 04-06-2022 T4 [Mass/Vol] 6.7 ug/dL Normal 4.5-12.0 [facility] Comment on above: Performed By: #### [id number] #### [facility] [address] [place] [address] Dr. Les Bryan BNPon 04-05-2022 Natriuretic peptide B (Bld) [Mass/Vol] 18.0 pg/mL Normal <=450.0 [facility] Comment on above: Performed By: #### RICARDO STEVENSON #### [facility] [address] [place] [address] Dr. Les Bryan CBC AUTO DIFFon 04-05-2022 BASO # 0.1 103/ul Normal 0.0-0.1 [facility] Comment on above: Performed By: #### [id number] #### [facility] [address] [place] [address] Dr. Les Bryan Basophils/100 WBC (Bld) 0.6 % Normal 0.2-2.0 [facility] Comment on above: Performed By: #### 4 [id number] #### [facility] [address] [place] [address] Dr. Les Bryan EO # 0.2 103/ul Normal 0.0-0.7 [facility] Comment on above: Performed By: #### [id number] #### [facility] [address] [place] [address] Dr. Les Bryan Eosinophils/100 WBC (Bld) 1.9 % Normal 0.9-7.0 [facility] Comment on above: Performed By: #### 4 [id number] #### [facility] [address] [place] [address] Dr. Les Bryan Erythrocyte distribution width (RBC) [Ratio] 13.3 % Normal 11.0-15.0 [facility] Comment on above: Performed By: #### 4 [id number] #### [facility] [address] [place] [address] Dr. Les Bryan Hematocrit (Bld) [Volume fraction] 39.1 % Normal 36.0-48.0 [facility] Comment on above: Performed By: #### 4 [id number] #### [facility] [address] [place] [address] Dr. Les Bryan Hemoglobin (Bld) [Mass/Vol] 13.2 g/dL Normal 12.0-16.0 [facility] Comment on above: Performed By: #### 4 [id number] #### [facility] [address] [place] [address] Dr. Les Bryan IG # 0.08 10e3/ul Critically high 0.00-0.03 [facility] Comment on above: Performed By: #### 4 [id number] #### [facility] [address] [place] [address] Dr. Les Bryan IG % 0.8 % Critically high 0.0-0.5 [facility] Comment on above: Performed By: #### 4 [id number] #### [facility] [address] [place] [address] Dr. Les Bryan LYMPH # 3.0 103/ul Normal 1.2-3.8 [facility] Comment on above: Performed By: #### 4 [id number] #### [facility] [address] [place] [address] Dr. Les Bryan Lymphocytes/100 WBC (Bld) 31.4 % Normal 20.5-60.0 [facility] Comment on above: Performed By: #### 4 [id number] #### [facility] [address] [place] [address] Dr. Les Bryan MANUAL DIFF REQ NO Normal [facility] Comment on above: Performed By: #### 4 [id number] #### [facility] [address] [place] [address] Dr. Les Bryan MCH (RBC) [Entitic mass] 30.1 pg Normal 26.7-34.0 [facility] Comment on above: Performed By: #### 4 [id number] #### [facility] [address] [place] [address] Dr. Les Bryan MCHC (RBC) [Mass/Vol] 33.8 g/dL Normal 29.9-35.2 [facility] Comment on above: Performed By: #### [id number] #### [facility] [address] [place] [address] Dr. Les Bryan MCV (RBC) [Entitic vol] 89.1 fL Normal 81.0-99.0 [facility] Comment on above: Performed By: #### 4 [id number] #### [facility] [address] [place] [address] Dr. Les Bryan MONO # 0.6 103/ul Normal 0.3-0.8 [facility] Comment on above: Performed By: #### [id number] #### [facility] [address] [place] [address] Dr. Les Bryan Monocytes/100 WBC (Bld) 6.1 % Normal 1.7-12.0 [facility] Comment on above: Performed By: #### 4 [id number] #### [facility] [address] [place] [address] Dr. Les Bryan NEUT # 5.6 103/ul Normal 1.4-6.5 [facility] Comment on above: Performed By: #### 4 [id number] #### [facility] [address] [place] [address] Dr. Les Bryan Neutrophils/100 WBC (Bld) 59.2 % Normal 43.0-75.0 [facility] Comment on above: Performed By: #### 4 [id number] #### [facility] [address] [place] [address] Dr. Les Bryan Platelet mean volume (Bld) [Entitic vol] 9.0 fL Critically low 9.5-13.5 [facility] Comment on above: Performed By: #### 4 [id number] #### [facility] [address] [place] [address] Dr. Les Bryan PLT 286 103/ul Normal 150-450 [facility] Comment on above: Performed By: #### 4 [id number] #### [facility] [address] [place] [address] Dr. Les Bryan RBC 4.39 106/ul Normal 4.20-5.40 [facility] Comment on above: Performed By: #### 4 [id number] #### [facility] [address] [place] [address] Dr. Les Bryan WBC 9.5 103/ul Normal 4.0-11.0 [facility] Comment on above: Performed By: #### 4 [id number] #### [facility] [address] [place] [address] Dr. Les Bryan FREE T3on 04-05-2022 FREE T3 2.73 pg/mlL Normal 2.18-3.98 [facility] Comment on above: Performed By: #### RICARDO STEVENSON #### [facility] [address] [place] [address] Dr. Les Bryan FREE THYROXINE INDEX T7on FTI 2.08 Normal 1.30-4.50 [facility] Comment on above: Performed By: #### RICARDO STEVENSON #### [facility] [address] [address] [address] Les Bryan T3U 31.0 % Normal 30.0-39.0 [facility] Comment on above: Performed By: #### BARBER STEVENSONRO #### [facility] [address] [place] [address] Dr. Les Bryan T4 [Mass/Vol] 6.70 ug/dL Normal 4.80-13.90 [facility] Comment on above: Result Comment: T4 t esting performed by [facility] Performed By: #### RICARDO STEVENSON #### [facility] [address] [place] [address] Dr. Les Bryan GLYCOHEMOGLOBIN A1Con 2021 ADA RECOMMENDATION SEE BELOW Normal [facility] Comment on above: Result Comment: ADA RECOMMENDED LIMIT 4.0 - 6.0 ADA THERAPEUTIC TARGET < 7.0 ACTION SUGGESTED > 7.0 Performed By: #### [id number] #### [facility] [address] [place] [address] Dr. Les Bryan Glucose [Mass/Vol] 120 mg/dL Normal [facility] Comment on above: Performed By: #### 4 [id number] #### [facility] [address] [place] [address] Dr. Les Bryan HbA1c (Bld) [Mass fraction] 5.8 % Normal 4.5-6.2 [facility] Comment on above: Performed By: #### 4 [id number] #### [facility] [address] [place] [address] Dr. Les Bryan IRONon 04-05-2022 Iron [Mass/Vol] 105.0 ug/dL Normal 50.0-170.0 [facility] Comment on above: Performed By: #### RICARDO STEVENSON #### [facility] [address] [place] [address] Dr. Les Bryan LIPID PROFILEon 04-05-2022 CHOL-HDL RATIO NORM SEE BELOW Normal [facility] Comment on above: Result Comment: 3.3 - 4.4 LOW RISK 4.4 - 7.1 AVERAGE RISK 7.1 - 11.0 MODERATE RISK >11.0 HIGH RISK Performed By: #### RICARDO STEVENSON #### [facility] [address] [place] [address] Dr. Les Bryan Cholesterol [Mass/Vol] 217 mg/dL Critically high <=200 [facility] Comment on above: Performed By: #### RICARDO STEVENSON #### [facility] [address] [place] [address] Dr. Les Bryan Cholesterol in HDL [Mass/Vol] 49 mg/dL Normal 40-60 [facility] Comment on above: Performed By: #### RICARDO STEVENSON #### [facility] [address] [place] [address] Dr. Les Bryan Cholesterol in LDL [Mass/Vol] 128.2 mg/dL Normal [facility] Comment on above: Performed By: #### RICARDO STEVENSON #### [facility] [address] [place] [address] Dr. Les Bryan Cholesterol.total/Ch olesterol in HDL [Mass ratio] 4.4 {ratio} Normal [facility] Comment on above: Performed By: #### RICARDO STEVENSON #### [facility] [address] [place] [address] Dr. Les Bryan HDL NORMAL > or = 60 mg/dl - LOW CARDIOVASCULAR RISK <40 mg/dl - HIGH CARDIOVASCULAR RISK Normal [facility] Comment on above: Performed By: #### BARBER STEVENSONRO #### [facility] [address] [place] [address] Dr. Les Bryan LDL CALC NORMAL SEE BELOW Normal [facility] Comment on above: Result Comment: <100 mg/dl OPTIMAL 100 - 129 mg/dl NEAR OR ABOVE OPTIMAL 130 - 159 mg/dl BORDERLINE HIGH 160 - 189 mg/dl HIGH >190 mg/dl VERY HIGH Performed By: #### BARBER STEVENSONRO #### [facility] [address] [place] [address] Dr. Les Bryan Triglyceride [Mass/Vol] 199 mg/dL Critically high <=150 [facility] Comment on above: Performed By: #### RICARDO STEVENSON #### [facility] [address] [place] [address] Dr. Les Bryan VLDL CALC 39.8 mg/dL Normal [facility] Comment on above: Performed By: #### RICARDO STEVENSON #### [facility] [address] [place] [address] Dr. Les Bryan PROF 14(COMP METB)on 022 Albumin [Mass/Vol] 3.8 g/dL Normal 3.4-5.0 [facility] Comment on above: Performed By: #### RICARDO STEVENSON #### [facility] [address] [place] [address] Dr. Les Bryan Albumin/Globulin [Mass ratio] 0.9 {ratio} Normal [facility] Comment on above: Performed By: #### RICARDO STEVENSON #### [facility] [address] [place] [address] Dr. Les Bryan ALP [Catalytic activity/Vol] 122 U/L Critically high 46-116 [facility] Comment on above: Performed By: #### RICARDO STEVENSON #### [facility] [address] [place] [address] Dr. Les Bryan ALT [Catalytic activity/Vol] 90 U/L Critically high 14-59 [facility] Comment on above: Performed By: #### RICARDO STEVENSON #### [facility] [address] [place] [address] Dr. Les Bryan Anion gap [Moles/Vol] 13.5 mmol/L Normal [facility] Comment on above: Performed By: #### RICARDO STEVENSON #### [facility] [address] [place] [address] Dr. Les Bryan AST [Catalytic activity/Vol] 63 U/L Critically high 15-37 [facility] Comment on above: Performed By: #### RICARDO STEVENSON #### [facility] [address] [place] [address] Dr. Les Bryan Bilirubin [Mass/Vol] 0.4 mg/dL Normal 0.2-1.0 [facility] Comment on above: Performed By: #### BARBER STEVENSONRO #### [facility] [address] [place] [address] Dr. Les Bryan Calcium [Mass/Vol] 9.3 mg/dL Normal 8.5-10.1 [facility] Comment on above: Performed By: #### Andi GUY UMICRO #### [facility] [address] [address] [address] Les Bryan Chloride [Moles/Vol] 103 mmol/L Normal 98-107 [facility] Comment on above: Performed By: #### Andi GUY UMICRO #### [facility] [address] [place] [address] Dr. Les Bryan CO2 [Moles/Vol] 24.6 mmol/L Normal 21.0-32.0 [facility] Comment on above: Performed By: #### Andi GUY UMICRO #### [facility] [address] [place] [address] Dr. Les Bryan Creatinine [Mass/Vol] 0.70 mg/dL Normal 0.55-1.02 [facility] Comment on above: Performed By: #### Andi GUY UMICRO #### [facility] [address] [place] [address] Dr. Les Bryan EGFR-AF ERITREAN >60 Normal >=60 [facility] Comment on above: Performed By: #### Andi GUY UMICRO #### [facility] [address] [place] [address] Dr. Les Bryan EGFR-NON AF ERITREAN >60 Normal >=60 [facility] Comment on above: Performed By: #### Andi GUY UMICRO #### [facility] [address] [place] [address] Dr. Les Bryan Globulin (S) [Mass/Vol] 4.1 g/dL Normal [facility] Comment on above: Performed By: #### Andi GUY UMICRO #### [facility] [address] [place] [address] Dr. Les Bryan Glucose [Mass/Vol] 110 mg/dL Critically high 74-106 [facility] Comment on above: Performed By: #### E LOKESHR, UMICRO #### [facility] [address] [place] [address] Dr. Les Bryan Potassium [Moles/Vol] 4.1 mmol/L Normal 3.5-5.1 [facility] Comment on above: Performed By: #### E RUR, UMICRO #### [facility] [address] [place] [address] Dr. Les Bryan Protein [Mass/Vol] 7.9 g/dL Normal 6.4-8.2 [facility] Comment on above: Performed By: #### E BROOKS, UMICRO #### [facility] [address] [place] [address] Dr. Les Bryan Sodium [Moles/Vol] 137 mmol/L Normal 136-145 [facility] Comment on above: Performed By: #### E BROOKS, UMICRO #### [facility] [address] [place] [address] Dr. Les Bryan Urea nitrogen [Mass/Vol] 9.0 mg/dL Normal 7.0-18.0 [facility] Comment on above: Performed By: #### E BROOKS, UMICRO #### [facility] [address] [place] [address] Dr. Les Bryan Urea nitrogen/Creatinine [Mass ratio] 12.9 mg/mg Normal [facility] Comment on above: Performed By: #### E BROOKS, UMICRO #### [facility] [address] [place] [address] Dr. Les Bryan TSHon 04-05-2022 TSH 3.572 uIU/mL Normal 0.358-3.740 [facility] Comment on above: Performed By: #### E LOKESHR, UMICRO #### [facility] [address] [place] [address] Dr. Les Bryan TSH RANGE SEE BELOW Normal [facility] Comment on above: Result Comment: <0.3 4 UIU/ml HYPERTHYROID 0.34-5.60 UIU/ml EUTHYROID >5.60 UIU/ml HYPOTHYROID Performed By: #### E RICARDO GUY #### [facility] [address] [place] [address] Dr. Les Bryan XR KUB 1 VIEWon [...] AMANDA CASSIDY Date: 2022-02-27 15:05 Normal [facility] AMYLASEon 02-25-2022 Amylase [Catalytic activity/Vol] 34 U/L Normal 25-115 [facility] Comment on above: Performed By: #### [id number] #### [facility] [address] [place] [address] Dr. Les Bryan CBC AUTO DIFFon 02-25-2022 BASO # 0.0 103/ul Normal 0.0-0.1 [facility] Comment on above: Performed By: #### C BC #### [facility] [address] [place] [address] Dr. Les Bryan Basophils/100 WBC (Bld) 0.4 % Normal 0.2-2.0 [facility] Comment on above: Performed By: #### C BC #### [facility] [address] [place] [address] Dr. Les Bryan EO # 0.3 103/ul Normal 0.0-0.7 [facility] Comment on above: Performed By: #### C BC #### [facility] [address] [address] [address] Les Bryan Eosinophils/100 WBC (Bld) 3.6 % Normal 0.9-7.0 [facility] Comment on above: Performed By: #### C BC #### [facility] [address] [place] [address] Dr. Les Bryan Erythrocyte distribution width (RBC) [Ratio] 13.1 % Normal 11.0-15.0 [facility] Comment on above: Performed By: #### C BC #### [facility] [address] [place] [address] Dr. Les Bryan Hematocrit (Bld) [Volume fraction] 40.6 % Normal 36.0-48.0 [facility] Comment on above: Performed By: #### C BC #### [facility] [address] [place] [address] Dr. Les Bryan Hemoglobin (Bld) [Mass/Vol] 13.3 g/dL Normal 12.0-16.0 [facility] Comment on above: Performed By: #### C BC #### [facility] [address] [place] [address] Dr. Les Bryan IG # 0.06 10e3/ul Critically high 0.00-0.03 [facility] Comment on above: Performed By: #### C BC #### [facility] [address] [place] [address] Dr. Les Bryan IG % 0.6 % Critically high 0.0-0.5 [facility] Comment on above: Performed By: #### C BC #### [facility] [address] [place] [address] Dr. Les Bryan LYMPH # 3.6 103/ul Normal 1.2-3.8 [facility] Comment on above: Performed By: #### C BC #### [facility] [address] [place] [address] Dr. Les Bryan Lymphocytes/100 WBC (Bld) 38.2 % Normal 20.5-60.0 [facility] Comment on above: Performed By: #### C BC #### [facility] [address] [place] [address] Dr. Les Bryan MANUAL DIFF REQ NO Normal [facility] Comment on above: Performed By: #### C BC #### [facility] [address] [place] [address] Dr. Les Bryan MCH (RBC) [Entitic mass] 29.7 pg Normal 26.7-34.0 [facility] Comment on above: Performed By: #### C BC #### [facility] [address] [place] [address] Dr. Les Bryan MCHC (RBC) [Mass/Vol] 32.8 g/dL Normal 29.9-35.2 [facility] Comment on above: Performed By: #### C BC #### [facility] [address] [place] [address] Dr. Les Bryan MCV (RBC) [Entitic vol] 90.6 fL Normal 81.0-99.0 [facility] Comment on above: Performed By: #### C BC #### [facility] [address] [place] [address] Dr. Les Bryan MONO # 0.5 103/ul Normal 0.3-0.8 [facility] Comment on above: Performed By: #### C BC #### [facility] [address] [place] [address] Dr. Les Bryan Monocytes/100 WBC (Bld) 5.4 % Normal 1.7-12.0 [facility] Comment on above: Performed By: #### C BC #### [facility] [address] [place] [address] Dr. Les Bryan NEUT # 4.9 103/ul Normal 1.4-6.5 [facility] Comment on above: Performed By: #### C BC #### [facility] [address] [place] [address] Dr. Les Bryan Neutrophils/100 WBC (Bld) 51.8 % Normal 43.0-75.0 [facility] Comment on above: Performed By: #### C BC #### [facility] [address] [place] [address] Dr. Les Bryan Platelet mean volume (Bld) [Entitic vol] 9.2 fL Critically low 9.5-13.5 [facility] Comment on above: Performed By: #### C BC #### [facility] [address] [place] [address] Dr. Les Bryan PLT 335 103/ul Normal 150-450 [facility] Comment on above: Performed By: #### C BC #### [facility] [address] [place] [address] Dr. Les Bryan RBC 4.48 106/ul Normal 4.20-5.40 [facility] Comment on above: Performed By: #### C BC #### [facility] [address] [place] [address] Dr. Les Bryan WBC 9.4 103/ul Normal 4.0-11.0 [facility] Comment on above: Performed By: #### C BC #### [facility] [address] [place] [address] ABD/PELVIS WO CONon [...] by: IWONA BRITT Date: 2022-02-25 19:05 Normal [facility] ER URINE PROFILEon 2 Bilirubin Ql (U) Negative Normal NEGATIVE [facility] Comment on above: Performed By: #### Andi GUY UMICRO #### [facility] [address] [place] [address] Dr. Les Bryan Clarity (U) CLEAR Normal CLEAR [facility] Comment on above: Performed By: #### Andi GUY UMICRO #### [facility] [address] [address] [address] Les Bryan Color (U) YELLOW Normal YELLOW [facility] Comment on above: Performed By: #### Andi GUY UMICRO #### [facility] [address] [address] [address] Les Bryan ERUCHANDLERD A micrscopic examination will be performed if indicated. Normal [facility] Comment on above: Performed By: #### Andi GUY UMICRO #### [facility] [address] [address] [address] Les Bryan Glucose Ql (U) Negative Normal NEGATIVE [facility] Comment on above: Performed By: #### E RUR UMICRO #### [facility] [address] [place] [address] Dr. Les Bryan Hemoglobin Ql (U) LARGE Abnormal NEGATIVE [facility] Comment on above: Performed By: #### E RUR, UMICRO #### [facility] [address] [place] [address] Dr. Les Bryan Ketones Ql (U) Negative Normal NEGATIVE [facility] Comment on above: Performed By: #### BARBER STEVENSONRO #### [facility] [address] [place] [address] Dr. Les Bryan LEUKOCYTES TRACE Abnormal NEGATIVE [facility] Comment on above: Performed By: #### BARBER STEVENSONRO #### [facility] [address] [place] [address] Dr. Les Bryan Nitrite Ql (U) Negative Normal NEGATIVE [facility] Comment on above: Performed By: #### BARBER STEVENSONRO #### [facility] [address] [place] [address] Dr. Les Bryan pH (U) 7.0 [pH] Normal 5-9 [facility] Comment on above: Performed By: #### BARBER STEVENSONRO #### [facility] [address] [place] [address] Dr. Les Bryan Protein (U) [Mass/Vol] 30 mg/dL Abnormal NEGATIVE/ TRACE [facility] Comment on above: Performed By: #### BARBER STEVENSONRO #### [facility] [address] [place] [address] Dr. Les Bryan SPEC GRAVITY 1.025 Normal 1.005-<=1.025 [facility] Comment on above: Performed By: #### BARBER STEVENSONRO #### [facility] [address] [place] [address] Dr. Les Bryan UR MICRO IND INDICATED Normal [facility] Comment on above: Performed By: #### BARBER STEVENSONRO #### [facility] [address] [place] [address] Dr. Les Bryan Urobilinogen Qn (U) 0.2 {Racquel'U}/dL Normal 0.2 - 1. 0 [facility] Comment on above: Performed By: #### RICARDO STEVENSON #### [facility] [address] [place] [address] Dr. Les Bryan LIPASEon 02-25-2022 Lipase [Catalytic activity/Vol] 82.0 U/L Normal 73.0-393.0 [facility] Comment on above: Performed By: #### [id number] #### [facility] [address] [place] [address] Dr. Les Bryan PROF 14(COMP METB)on Albumin [Mass/Vol] 3.7 g/dL Normal 3.4-5.0 [facility] Comment on above: Performed By: #### [id number] #### [facility] [address] [place] [address] Dr. Les Bryan Albumin/Globulin [Mass ratio] 0.9 {ratio} Normal [facility] Comment on above: Performed By: #### [id number] #### [facility] [address] [place] [address] Dr. Les Bryan ALP [Catalytic activity/Vol] 129 U/L Critically high 46-116 [facility] Comment on above: Performed By: #### [id number] #### [facility] [address] [place] [address] Dr. Les Bryan ALT [Catalytic activity/Vol] 86 U/L Critically high 14-59 [facility] Comment on above: Performed By: #### [id number] #### [facility] [address] [place] [address] Dr. Les Bryan Anion gap [Moles/Vol] 15.3 mmol/L Normal [facility] Comment on above: Performed By: #### [id number] #### [facility] [address] [place] [address] Dr. Les Bryan AST [Catalytic activity/Vol] 51 U/L Critically high 15-37 [facility] Comment on above: Performed By: #### [id number] #### [facility] [address] [place] [address] Dr. Les Bryan Bilirubin [Mass/Vol] 0.2 mg/dL Normal 0.2-1.0 [facility] Comment on above: Performed By: #### 4 [id number] #### [facility] [address] [address] [address] Les Bryan Calcium [Mass/Vol] 8.4 mg/dL Critically low 8.5-10.1 [facility] Comment on above: Performed By: #### [id number] #### [facility] [address] [place] [address] Dr. Les Bryan Chloride [Moles/Vol] 103 mmol/L Normal 98-107 [facility] Comment on above: Performed By: #### [id number] #### [facility] [address] [place] [address] Dr. Les Bryan CO2 [Moles/Vol] 26.2 mmol/L Normal 21.0-32.0 [facility] Comment on above: Performed By: #### 4 [id number] #### [facility] [address] [place] [address] Dr. Les Bryan Creatinine [Mass/Vol] 0.72 mg/dL Normal 0.55-1.02 [facility] Comment on above: Performed By: #### [id number] #### [facility] [address] [place] [address] Dr. Les Bryan EGFR-AF ERITREAN >60 Normal >=60 [facility] Comment on above: Performed By: #### [id number] #### [facility] [address] [place] [address] Dr. Les Bryan EGFR-NON AF ERITREAN >60 Normal >=60 [facility] Comment on above: Performed By: #### [id number] #### [facility] [address] [place] [address] Dr. Les Bryan Globulin (S) [Mass/Vol] 4.2 g/dL Normal [facility] Comment on above: Performed By: #### [id number] #### [facility] [address] [place] [address] Dr. Les Bryan Glucose [Mass/Vol] 121 mg/dL Critically high 74-106 [facility] Comment on above: Performed By: #### [id number] #### [facility] [address] [place] [address] Dr. eLs Bryan Potassium [Moles/Vol] 3.5 mmol/L Normal 3.5-5.1 [facility] Comment on above: Performed By: #### [id number] #### [facility] [address] [place] [address] Dr. Les Bryan Protein [Mass/Vol] 7.9 g/dL Normal 6.1-8.2 [facility] Comment on above: Performed By: #### 4 [id number] #### [facility] [address] [place] [address] Dr. Les Bryan Sodium [Moles/Vol] 141 mmol/L Normal 136-145 [facility] Comment on above: Performed By: #### [id number] #### [facility] [address] [place] [address] Dr. Les Bryan Urea nitrogen [Mass/Vol] 14.0 mg/dL Normal 7.0-18.0 [facility] Comment on above: Performed By: #### 4 [id number] #### [facility] [address] [place] [address] Dr. Les Bryan Urea nitrogen/Creatinine [Mass ratio] 19.4 mg/mg Normal [facility] Comment on above: Performed By: #### 4 [id number] #### [facility] [address] [place] [address] Dr. Les Bryan URINE MICROSCOPIC ONLYon BACTERIA TRACE Abnormal NONE SEEN [facility] Comment on above: Performed By: #### Andi GUY UMICRO #### [facility] [address] [place] [address] Dr. Les Bryan Bacteria identified Cx Nom (U) NOT INDICATED Normal [facility] Comment on above: Performed By: #### Andi GUY UMICRO #### [facility] [address] [place] [address] Dr. Les Bryan CAST NONE SEEN Normal NONE SEEN [facility] Comment on above: Performed By: #### Andi GUY UMICRO #### [facility] [address] [address] [address] Les Bryan Crystals LM Nom (Urine sed) NONE SEEN Normal NONE SEEN [facility] Comment on above: Performed By: #### RICARDO STEVENSON #### [facility] [address] [address] [address] Les Bryan Epithelial cells LM Ql (Urine sed) MODERATE Abnormal NONE SEEN /RARE [facility] Comment on above: Performed By: #### RICARDO STEVENSON #### [facility] [address] [place] [address] Dr. Les Bryan MUCOUS NONE SEEN Normal NONE SEEN [facility] Comment on above: Performed By: #### RICARDO STEVENSON #### [facility] [address] [place] [address] Dr. Les Bryan RBC 20-50 Abnormal 0-2 [facility] Comment on above: Result Comment: cren ated RBCs Performed By: #### RICARDO STEVENSON #### [facility] [address] [place] [address] Dr. Les Bryan WBC 2-5 Abnormal NONE SEEN [facility] Comment on above: Performed By: #### RICARDO STEVENSON #### [facility] [address] [place] [address] Dr. Les Bryan Vital Signs Date Time Vital Sign Value Performing Clinician Facility 12-02-2024 14:40-0500 Blood Pressure Location Jl FREDERICK [facility] [place] 12-02-2024 14:40-0500 Diastolic blood pressure 106 mm[Hg] Jl FREDERICK [facility] [place] 12-02-2024 14:40-0500 Heart rate 72 /min Jl FREDERICK [facility] [place] 12-02-2024 14:40-0500 Respiratory rate 16 /min Jl FREDERICK [facility] [place] 12-02-2024 14:40-0500 Systolic blood pressure 142 mm[Hg] Jl FREDERICK [facility] [place] 09-13-2023 10:30-0500 Body height 162.56 cm Shae Love [facility] Other 09-13-2023 10:30-0500 Body mass index (BMI) [Ratio] 23.14 kg/m2 Shae Love Other [facility] Other 09-13-2023 10:30-0500 Body temperature 98.4 [degF] Shae Love Other [facility] Other 09-13-2023 10:30-0500 Body weight 61.15 kg Shae Love Other [facility] Other 09-13-2023 10:30-0500 Respiratory rate 18 /min Shae Love Other [facility] Other 09-13-2023 10:30-0500 SaO2% (BldA) [Mass fraction] 99 % Shae Love Other [facility] Other 04-21-2022 09:07-0400 Blood Pressure Location Jl FREDERICK [facility] [place] 04-21-2022 09:07-0400 Diastolic blood pressure 86 mm[Hg] Jl BRIDGESL [facility] [place] 04-21-2022 09:07-0400 Heart rate 92 /min Jl BRIDGESL [facility] [place] 04-21-2022 09:07-0400 Respiratory rate 16 /min Jl YOLY [facility] [place] 04-21-2022 09:07-0400 Systolic blood pressure 127 mm[Hg] Jl FREDERICK [facility] [place] Encounters Encounter Date Encounter Type Care Provider Facility Start: 12-02-2024 End: 12-02-2024 ambulatory Jl FREDERICK Facility: [facility] Start: 12-02-2024 End: 12-02-2024 Patient encounter procedure Jl FREDERICK [facility] [place] Start: 06-12-2024 End: 06-12-2024 Emergency department patient visit [facility] Start: 09-13-2023 Office outpatient ne w 20 minutes Shae Love [facility] Start: 09-13-2023 End: 09-13-2023 ambulatory Shae Love [facility] Other Start: 09-13-2023 End: 09-13-2023 Patient encounter procedure [employer] Sahe Love Work Phone: [facility] Work Phone: Start: 10-09-2022 End: 10-10-[address] ANGELICA DE Facility:[facility] Start: 09-04-2022 End: 09-04-[address] ANGELICA DE Facility:[facility] Start: 09-01-2022 End: 09-02-[address] ANGELICA DE Facility:[facility] Start: 05-30-2022 End: 05-30-[address] ANGELICA DE Facility:[facility] Start: 05-12-2022 End: 05-12-2022 Patient encounter procedure Jl FREDERICK [facility] [place] Start: 05-03-2022 End: 05-03-2022 Patient encounter procedure Jl FREDERICK General [facility] [place]/Angelique [facility] Start: 04-21-2022 End: 04-21-2022 Patient encounter procedure Jl FREDERICK [facility] [place] Start: 04-20-[address] ANGELICA DE Facility :[facility] Start: 04-17-2022 End: 04-18-[address] ANGELICA DE Facility:[facility] Start: 04-05-2022 End: 04-06-[address] ANGELICA DE Facility:[facility] Start: 02-27-2022 End: 02-28-[address] ANGELICA DE Facility:[facility] Start: 02-25-2022 End: 02-25-2022 ambulatory EMILY MCDERMOTT Facility:[facility] Procedures Date Procedure Procedure Detail Performing Clinician Start: 09-13-2023 Radiologic examinati on of knee [employer] Shae Love Work Phone: Start: 05-03-2022 Excision of dermatofibroma Jl FREDERICK Comment on above: left ankle Start: 07-08-2015 laparoscopic cholecy stectomy with intraoperative cholangiogram Jl FREDERICK Abdominal hysterectomy Sebastian munguia YOLY Bilateral complete salpingectomy Jl FREDERICK Diagnostic laparoscopy Sebastian nilda FREDERICK Loop electrosurgical excision procedure Jl FREDERICK Payers Date Payer Category Payer Unknown [id number] 1980 Unknown [id number] 2.16.84 [id number] 1979 Unknown [id number] 2.16.84 [id number] 1979 Unknown [id number] 2.16.84 [id number] 1979 Unknown [id number] 2.16.84 [id number] 1979 Unknown [id number] 2.16.84 [id number] 1979 Unknown [id number] 2.16.84 [id number] 1979 Unknown [id number] 2.16.84 [id number] 1979 Unknown [id number] 2.16.84 [id number] 1979 Unknown [id number] 2.16.84 [id number] 1979 Unknown [id number] 2.16.8 [id number] 1979 Unknown [id number] 2.16.8 [id number] 1959 Self-pay 1960 Unknown [id number] Unknown [id number] 2.16.8 [id number] Social History Date Type Detail Facility Start: 04-21-2022 Tobacco smoking status Ex-smoker (fi nding) [facility] Tobacco smoking status Never [facility] Sex Assigned At Female [facility] Start: 1980 Sex Assigned At Female [facility] Start: 12-02-2024 Tobacco smoking status Heavy t obacco smoker (finding) [facility] Functional Status Date Assessment Result Facility 12-02-2024 Functional Status N/A [facility] 04-21-2022 Functional Status N/A [facility] [place] Clinical Note 12-02-2024 Note Date & Type Note Facility 12-02-2024 Note General Surgery Offi ce/Clinic Note Chief Complaint consultation for skin lesion HPI Staff 44 year old female presents on self referral consultation for recurrent skin lesion left ankle. Previous excision completed 04/2022 with dermatofibroma. History of Present Illness 44 yo female with h/o htn, hypothyroidism, nephrolithiasis, anxiety, presents for evaluation of nodule left ankle, lateral to scar from excision of dermatofibroma, this was removed 04/2022; swelling under area; no pain or injury to area; no no change in size of small nodule. on Diclofenac daily, no asa. smokes daily. Review of Systems PHQ Score Initial Depression Screen Score: 0 SCORE ROS - Provider Constitutional: no fever, no sweats, no weight loss. Eyes: yes glasses, no blurred vision, no visual loss. [...] noncontributory. Physical Exam Vitals & Measurements HR: 72(Peripheral) RR: 16 BP: 142/106 HT: 64 in HT: 163 cm WT: 71.2 kg WT: 156.969 lb BMI: 26.8 HEENT: normal conjunctiva, sclera clear, no scleral icterus, EOM intact, PERRLA, oral mucosa moist without lesions. Lymphatic: no cervical adenopathy, no axillary adenopathy, no inguinal adenopathy. Musculoskeletal: normal gait, digits and nails without infection, nodes, cyanosis, clubbing. Skin: no rashes, no lesions, no ulcers, 3 mm raised uniform lesion,pink/white, just lateral to left ankle scar; 3 cm soft, mobile subcutaneous mass underlying area, nontender. Psychiatric/Neuro: oriented to time, place, person, judgement normal, affect appropriate for age, insight intact, no focal deficits. Tests: , review of old records completed , Discussed surgical options, risks, and possible complications with patient. Assessment/Plan 1. Subcutaneous nodule of left lower extremity (R22.42: Localized swelling, mass and lump, left lower limb) possible lipoma, verses joint issue; small lesion possible recurrent dermatofibroma; will obtain US of subcutaneous mass and call patient with results; she is to call sooner if problems/questions. 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 Medications desvenlafaxine 100 mg Tab-, 100 mg= 1 tab(s), Oral, Daily diclofenac sodium 75 mg Oral EC Tab, 75 mg= 1 tab(s), Oral, BID hydrOXYzine pamoate 25 mg Cap, 25 mg= 1 cap(s), Oral, QID, PRN levothyroxine 75 mcg (0.075 mg) Tab, 75 mcg= 1 tab(s), Oral, Daily Protonix 40 mg Tab-DR, 40 mg= 1 tab(s), Oral, Daily quetiapine 100 mg Tab, 100 mg= 1 tab(s), Oral, Bedtime valacyclovir 500 mg Tab, 500 mg= 1 tab(s), Oral, Daily Allergies Latex (Rash) sulfamethoxazole-trimethoprim (Hives) Social History Alcohol - No Risk, 07/09/2015 Current. Wine. 1-2 times per month., 12/01/2024 Employment/School - Medium Risk, 07/09/2015 Exercise - Does not exercise, 07/09/2015 Home/Environment - No Risk, 07/09/2015 Nutrition/Health - No Risk, 07/09/2015 Sexual - Low Risk, 07/09/2015 Substance Abuse - Denies Substance Abuse, 04/21/2022 Never., 12/01/2024 Tobacco - No Risk, 07/09/2015 10 or more cigarettes (1/2 pack or more)/day in last 30 days Tobacco Use:. Never Smokeless Tobacco Use:. Cigarettes, 0.5 per day. Yes, 12/02/2024 Family History Alcoholism: Father. Hyperlipidemia: Mother. Hypothyroidism: Mother. Primary malignant neoplasm of bladder: Father. [facility] Comment on above: Result Comment: Elec tronically Signed By: YOLY AKBAR, Jl Charles\Date and Time Signed: 12/02/24 15:12 EST Evaluation note 09-13-2023 Note Date & Type [...] understanding and is agreeable to treatment plan [facility] Other Evaluation + Plan note Note Date & Type Note Facility Evaluation + Plan note Future Appointments Appointment Date:05/03/2022 03:00:00 PM Scheduled Provider:Jl FREDERICK MD Location:[facility] Appointment Type:GS Procedure 30 [facility] [place] Evaluation + Plan note Note Date & Type Note Facility Evaluation + Plan note Future Appointments Appointment Date:05/12/2022 03:40:00 PM Scheduled Provider:Jl FREDERICK MD Location:[facility] Appointment Type:GS Post Op 15 [facility] [place] Evaluation note Note Date & Type Note Facility Evaluation note No assessment information availa [facility] Work Phone: History general Narrative - Reported Note Date & Type Note Facility History general Narrative - Reported Type Medical History Anxiety disorder Medical History chronic depression Medical History thyriod Surgical History LEAP [facility] Other Hospital course Narrative Note Date & Type Note Facility Hospital course Narrative No data available for this section [facility] [place] [facility] Discharge instructions Note Date & Type Note Facility Hospital Discharge instructions No data available for this section [facility] [place] Progress note Note Date & Type Note Facility Progress note No data available for this section [facility] [place] Summary Purpose Family History No Family History Records FoundNo Family History Records FoundNo Family History Records Found No data available for this section No Family History Records Found Advance Directives No Advanced Directives Records FoundNo Advanced Directives Records FoundNo Advanced Directives Records FoundNo Advanced Directives Records Found Additional Source Comments Care Team (unrecognized sect ion and content) Team Status: Inactive Member Role Status Dates Shae Love APRN Attending Provider Active INFORMATION SOURCE (unrecogn ized section and content) DATE CREATED AUTHOR 10/20/2022 [facility] DATE CREATED AUTHOR AUTHOR'S ORGANIZ ATION 12/07/2023 [facility] DATE CREATED AUTHOR AUTHOR'S ORGANIZ ATION 06/15/2024 [facility] DATE CREATED AUTHOR AUTHOR'S ORGANIZ ATION 12/04/2024 [facility] REASON FOR VISIT (unrecogniz ed section [...] BE BASED ON THE PRIMARY CLINICAL RECORDS. [employer] provides no warranty or guarantee of the accuracy or completeness of information in this document.
== END 2024-12-16 09:55 | disposition home or self-care (01) ==
LOC: RAD 09:54
PROVIDERS: PCP Family Medicine; Visit Provider Podiatrist Foot & Ankle Surgery
DX: M25.572 Pain in left ankle and joints of left foot (principal)
CPT/HCPCS: 73610

== ENCOUNTER 2024-12-27 16:55 | Emergency (ER) | payer BC, SELFPAY ==
--- OUTSIDE RECORDS SUMMARY | 2024-12-27 17:01 | XMS_ITS | CCD ---
Author Organization [facility] CliniSywy Care Team Providers Care Stock Control Clerk Name Role Phone Angelica De Primary Care [...] allergy 3 Eruption of skin (disorder), rash [facility] (6 sources) Sulfamethoxazole / Trimethoprim; Translations: [sulfamethoxazole-tr imethoprim] Drug Allergy Weal (disorder), hives [facility] (2 sources) natural latex rubber Drug allergy (disorder) [facility] Rep[facility] (2 sources) Sulfamethoxazole / Trimethoprim Drug Allergy [facility] (1 source) Sulfamethoxazole Drug Allergy 3 [facility] Repository (1 source) Trimethoprim Drug Allergy 3 [facility] Repository Medications Current Medications Medication Drug [...] Drug Class(es) Dates Sig (Normalized) Sig (Original) Marion-Linyah (1 source) [place] Not- Taking Problems Active Problems Problem Classification [...] choosing us for your care. Normal [place] [facility] Drugs of Abuse, S/Jm 2023 Amphetamines, S/P Negative Normal Cutoff 20 [facility] Comment on above: Performed By: #### A DAU9S #### [facility] [address] [place] [address] Comb Fixer: Trey Carroll MD #### CP, MARITZA, MG #### [facility] [address] [place] [address] Comb Fixer: Belia Manjarrez MD Barbiturates, S/P Negative Normal Cutoff 50 [facility] Comment on above: Performed By: #### A DAU9S #### [facility] [address] [place] [address] Comb Fixer: Trey Carroll MD #### CP, CDP, MG #### [facility] [address] [place] [address] Comb Fixer: Belia Manjarrez MD Benzodiazepines, S/P Negative Normal Cutoff 50 [facility] Comment on above: Performed By: #### A DAU9S #### [facility] [address] [place] [address] Comb Fixer: Trey Carroll MD #### CP, CDP, MG #### [facility] [address] [place], [place] [id number] Comb Fixer: Belia Manjarrez MD Buprenorphine, S/P Negative Normal Cutoff 1 [facility] Comment on above: Performed By: #### A DAU9S #### [facility] [address] [place] [address] Comb Fixer: Trey Carroll MD #### CP, CDP, MG #### [facility] [address] [place] [address] Comb Fixer: Belia Manjarrez MD Cocaine, Serum/Plas Negative Normal Cutoff 20 [facility] Comment on above: Performed By: #### A DAU9S #### [facility] [address] [place] [address] Comb Fixer: Trey Carroll MD #### CP, CDP, MG #### [facility] [address] [place] [address] Comb Fixer: Belia Manjarrez MD Comment See Note Normal [facility] Comment on above: Result Comment: (NOT [...] developed and its performance characteristics determined by [employer]. It has not been cleared or approved by the [place] Food and Drug Administration. This test was performed in a CLIA certified laboratory and is intended for clinical purposes. Performed By: [facility] [employer] [address] [place] [id number] Combination Presser: Trace Vazquez MD, PhD CLIA Number: [id number] Performed By: #### A DAU9S #### [address] [address] Comb Fixer: Trey Carroll MD #### CP, CDP, MG #### [facility] [address] [place] [address] Comb Fixer: Belia Manjarrez MD Methadone, S/P Negative Normal Cutoff 25 [facility] Comment on above: Performed By: #### A DAU9S #### [facility] [address] [place] [address] Comb Fixer: Trey Carroll MD #### CP, CDP, MG #### [facility] [address] [place] [address] Comb Fixer: Belia Manjarrez MD Methamphetamine,S/P Negative Normal Cutoff 20 [facility] Comment on above: Performed By: #### A DAU9S #### [facility] [address] [place] [address] Comb Fixer: Trey Carroll MD #### CP, CDP, MG #### [facility] [address] [place], [place] 17[address] Comb Fixer: Belia Manjarrez MD Opiates, Serum/Plas Negative Normal Cutoff 20 [facility] Comment on above: Performed By: #### A DAU9S #### [facility] [address] [place] [address] Comb Fixer: Trey Carroll MD #### CP, CDP, MG #### [facility] [address] [place] [address] Comb Fixer: Belia Manjarrez MD Oxycodone, S/P Negative Normal Cutoff 20 [facility] Comment on above: Performed By: #### A DAU9S #### [facility] [address] [place] [address] Comb Fixer: Trey Carroll MD #### CP, CDP, MG #### [facility] [address] [place], [place] [id number] Comb Fixer: Belia Manjarrez MD Phencyclidine, S/P Negative Normal Cutoff 10 [facility] Comment on above: Performed By: #### A DAU9S #### [facility] [address] [place] [address] Comb Fixer: Trey Carroll MD #### CP, CDP, MG #### [facility] [address] [place], [place] [id number] Comb Fixer: Belia Manjarrez MD THC, Serum/Plasma Negative Normal Cutoff 20 [facility] Comment on above: Performed By: #### A DAU9S #### [facility] [address] [place] [address] Comb Fixer: Trey Carroll MD #### CP, CDP, MG #### [facility] [address] [place] [address] Comb Fixer: Belia Manjarrez MD CBC with Diffon 06-12-2024 Abs. Basophil 0.04 k/uL Normal 0.00-0.20 [facility] Comment on above: Performed By: #### A DAU9S #### [facility] [address] [place] [address] Comb Fixer: Trey Carroll MD #### HEATHER, CDP, MG #### [facility] [address] [place] [address] [place] [address] Comb Fixer: Belia Manjarrez MD Abs.Imm.Granulocyte 0.06 k/uL Normal 0.00-0.30 [facility] Comment on above: Performed By: #### A DAU9S #### [facility] [address] [place] [address] Comb Fixer: Trey Carroll MD #### HEATHER CDP, MG #### [address] [place] [address] Comb Fixer: Belia Manjarrez MD Abs.Neutrophil (Seg) 6.02 k/uL Normal 1.50-8.10 [facility] Comment on above: Performed By: #### A DAU9S #### [facility] [address] [place] [address] Comb Fixer: Trey Carroll MD #### CP, CDP, MG #### [facility] [address] [place] [address] Comb Fixer: Belia Manjarrez MD Basophils/100 WBC (Bld) 0 % Normal 0-2 [facility] Comment on above: Performed By: #### A DAU9S #### [facility] [address] [place] [address] Comb Fixer: Trey Carroll MD #### CP, CDP, MG #### [facility] [address] [place] [address] [place] [address] Comb Fixer: Belia Manjarrez MD Eosinophils (Bld) [#/Vol] 0.16 10*3/uL Normal 0.00-0.44 [facility] Comment on above: Performed By: #### A DAU9S #### [facility] [address] [place] [address] Comb Fixer: Trey Carroll MD #### HEATHER, CDP, MG #### [address] [place] [address] Comb Fixer: Belia Manjarrez MD Eosinophils/100 WBC (Bld) 2 % Normal 1-4 [facility] Comment on above: Performed By: #### A DAU9S #### [facility] [address] [place] [address] Comb Fixer: Trey Carroll MD #### HEATHER CDP, MG #### [address] [place] [address] Comb Fixer: Belia Manjarrez MD Erythrocyte distribution width (RBC) [Ratio] 13.3 % Normal 11.8-14.4 [facility] Comment on above: Performed By: #### A DAU9S #### [facility] [address] [place] [address] Comb Fixer: Trey Carroll MD #### CP, CDP, MG #### [address] [place] [address] Comb Fixer: Belia Manjarrez MD Hematocrit (Bld) [Volume fraction] 41.0 % Normal 36.3-47.1 [facility] Comment on above: Performed By: #### A DAU9S #### [facility] [address] [place] [address] Comb Fixer: Trey Carroll MD #### CP, CDP, MG #### [facility] [address] [place] [address] Comb Fixer: Belia Manjarrez MD Hemoglobin (Bld) [Mass/Vol] 14.1 g/dL Normal 11.9-15.1 [facility] Comment on above: Performed By: #### A DAU9S #### [facility] [address] [place] [address] Comb Fixer: Trey Carroll MD #### CP, CDP, MG #### [facility] [address] [place] [address] Comb Fixer: Belia Manjarrez MD Immature granulocytes/100 WBC (Bld) 1 % High 0 [facility] Comment on above: Performed By: #### A DAU9S #### [facility] [address] [place] [address] Comb Fixer: Trey Carroll MD #### HEATHER, CDP, MG #### [facility] [address] [place] [address] [place] [address] Comb Fixer: Belia Manjarrez MD Lymphocytes (Bld) [#/Vol] 3.39 10*3/uL Normal 1.10-3.70 [facility] Comment on above: Performed By: #### A DAU9S #### [facility] [address] [place] [address] Comb Fixer: Trey Carroll MD #### CP, CDP, MG #### [facility] [address] [place] [address] Comb Fixer: Belia Manjarrez MD Lymphocytes/100 WBC (Bld) 33 % Normal 24-43 [facility] Comment on above: Performed By: #### A DAU9S #### [facility] [address] [place] [address] Comb Fixer: Trey Carroll MD #### CP, CDP, MG #### [facility] [address] [place] [address] Comb Fixer: Belia Manjarrez MD MCH (RBC) [Entitic mass] 30.9 pg Normal 25.2-33.5 [facility] Comment on above: Performed By: #### A DAU9S #### [facility] [address] [place] [address] Comb Fixer: Trey Carroll MD #### HEATHER CDP, MG #### [facility] [address] [place] [address] Comb Fixer: Belia Manjarrez MD MCHC (RBC) [Mass/Vol] 34.4 g/dL Normal 28.4-34.8 [facility] Comment on above: Performed By: #### A DAU9S #### [facility] [address] [place] [address] Comb Fixer: Trey Carroll MD #### HEATHER CDP, MG #### [facility] [address] [place] [address] Comb Fixer: Belia Manjarrez MD MCV (RBC) [Entitic vol] 89.9 fL Normal 82.6-102.9 [facility] Comment on above: Performed By: #### A DAU9S #### [facility] [address], [place] [id number] Comb Fixer: Trey Carroll MD #### CP, CDP, MG #### [facility] [address] [place] [address] Comb Fixer: Belia Manjarrez MD Monocytes (Bld) [#/Vol] 0.67 10*3/uL Normal 0.10-1.20 [facility] Comment on above: Performed By: #### A DAU9S #### [facility] [address] [place] [address] Comb Fixer: Trey Carroll MD #### CP, CDP, MG #### [facility] [address] [place] [address] Comb Fixer: Belia Manjarrez MD Monocytes/100 WBC (Bld) 7 % Normal 3-12 [facility] Comment on above: Performed By: #### A DAU9S #### [facility] [address] [place] [address] Comb Fixer: Trey Carroll MD #### CP, CDP, MG #### [facility] [address] [place] [address] Comb Fixer: Belia Manjarrez MD Neutrophil (Seg) 57 % Normal 36-65 [facility] Comment on above: Performed By: #### A DAU9S #### [facility] [address] [place] [address] Comb Fixer: Trey Carroll MD #### HEATHER, CDP, MG #### [facility] [address] [place] [address] Comb Fixer: Belia Manjarrez MD NRBC Automated 0.0 per 100 WBC Normal 0.0 [facility] Comment on above: Performed By: #### A DAU9S #### [facility] [address] [place] [address] Comb Fixer: Trey Carroll MD #### CP, CDP, MG #### [facility] [address] [place] [address] Comb Fixer: Belia Manjarrez MD Platelet mean volume (Bld) [Entitic vol] 9.6 fL Normal 8.1-13.5 [facility] Comment on above: Performed By: #### A DAU9S #### [facility] [address] [place] [address] Comb Fixer: Trey Carroll MD #### CP, CDP, MG #### [facility] [address] [place] [address] Comb Fixer: Belia Manjarrez MD Platelets (Bld) [#/Vol] 314 10*3/uL Normal 138-453 [facility] Comment on above: Performed By: #### A DAU9S #### [facility] [address] [place] [address] Comb Fixer: Trey Carroll MD #### CP, CDP, MG #### [facility] [address] [place] [address] Comb Fixer: Belia Manjarrez MD RBC (Bld) [#/Vol] 4.56 10*6/uL Normal 3.95-5.11 [facility] Comment on above: Performed By: #### A DAU9S #### [facility] [address] [place] [address] Comb Fixer: Trey Carroll MD #### HEATHER, CDP, MG #### [facility] [address] [place] [address] Comb Fixer: Belia Manjarrez MD WBC (Bld) [#/Vol] 10.3 10*3/uL Normal 3.5-11.3 [facility] Comment on above: Performed By: #### A DAU9S #### [facility] [address] [place] [address] Comb Fixer: Trey Carroll MD #### CP, CDP, MG #### [facility] [address] [place] [address] Comb Fixer: Belia Manjarrez MD Comp Metabolic Profon 2023 Albumin [Mass/Vol] 4.4 g/dL Normal 3.5-5.2 [facility] Comment on above: Performed By: #### A DAU9S #### [facility] [address] [place] [address] Comb Fixer: Trey Carroll MD #### CP, CDP, MG #### [facility] [address] [place], [place] [address] Comb Fixer: Belia Manjarrez MD Albumin/Glob Ratio 1.5 Normal 1.0-2.5 [facility] Comment on above: Performed By: #### A DAU9S #### [facility] [address] [place] [address] Comb Fixer: Trey Carroll MD #### HEATHER, CDP, MG #### [facility] [address] [place] [address] Comb Fixer: Belia Manjarrez MD Alkaline Phos 108 U/L High 35-104 [facility] Comment on above: Performed By: #### A DAU9S #### [facility] [address] [place] [address] Comb Fixer: Trey Carroll MD #### HEATHER, CDP, MG #### [facility] [address] [place] [address] Comb Fixer: Belia Manjarrez MD ALT [Catalytic activity/Vol] 46 U/L High 5-33 [facility] Comment on above: Performed By: #### A DAU9S #### [facility] [address] [place] [address] Comb Fixer: Trey Carroll MD #### CP, CDP, MG #### [facility] [address] [place] [address] Comb Fixer: Belia Manjarrez MD Anion gap [Moles/Vol] 10 mmol/L Normal 9-17 [facility] Comment on above: Performed By: #### A DAU9S #### [facility] [address] [place] [address] Comb Fixer: Trey Carroll MD #### CP, CDP, MG #### [facility] [address] [place] [address] Comb Fixer: Belia Manjarrez MD AST [Catalytic activity/Vol] 32 U/L High <32 [facility] Comment on above: Performed By: #### A DAU9S #### [facility] [address] [place] [address] Comb Fixer: Trey Carroll MD #### CP, CDP, MG #### [facility] [address] [place] [address] Comb Fixer: Belia Manjarrez MD Bilirubin [Mass/Vol] 0.4 mg/dL Normal 0.3-1.2 [facility] Comment on above: Performed By: #### A DAU9S #### [facility] [address] [place] [address] Comb Fixer: Trey Carroll MD #### CP, CDP, MG #### [facility] [address] [place] [address] Comb Fixer: Belia Manjarrez MD BUN/CRE Ratio 12 Normal 9-20 [facility] Comment on above: Performed By: #### A DAU9S #### [facility] [address] [place] [address] Comb Fixer: Trey Carroll MD #### CP, CDP, MG #### [facility] [address] [place] [address] Comb Fixer: Belia Manjarrez MD Calcium [Mass/Vol] 9.1 mg/dL Normal 8.6-10.4 [facility] Comment on above: Performed By: #### A DAU9S #### [facility] [address] [place] [address] Comb Fixer: Trey Carroll MD #### CP, CDP, MG #### [facility] [address] [place] [address] Comb Fixer: Belia Manjarrez MD Chloride [Moles/Vol] 106 mmol/L Normal 98-107 [facility] Comment on above: Performed By: #### A DAU9S #### [facility] [address] [place], [place] [id number] Comb Fixer: Trey Carroll MD #### CP, CDP, MG #### [facility] [address] [place] [address] Comb Fixer: Belia Manjarrez MD CO2 [Moles/Vol] 26 mmol/L Normal 20-31 [facility] Comment on above: Performed By: #### A DAU9S #### [facility] [address] [place], [place] [address] Comb Fixer: Trey Carroll MD #### CP, CDP, MG #### [facility] [address] [place] [address] Comb Fixer: Belia Manjarrez MD Creatinine [Mass/Vol] 0.5 mg/dL Normal 0.5-0.9 [facility] Comment on above: Performed By: #### A DAU9S #### [facility] [address] [place] [address] Comb Fixer: Trey Carroll MD #### CP, CDP, MG #### [facility] [address] [place] [address] Comb Fixer: Belia Manjarrez MD GFR/1.73 sq M.predicted among non-blacks MDRD (S/P/Bld) [Vol rate/Area] mL/min/{1.73_m2} Normal >60 [facility] Comment on above: Result Comment: These [...] By: #### A DAU9S #### [facility] [address] [place] [id number] Comb Fixer: Trye Carroll MD #### HEATHER, CDP, MG #### [facility] [address] [place] [address] Comb Fixer: Belia Manjarrez MD Glucose [Mass/Vol] 90 mg/dL Normal 70-99 [facility] Comment on above: Performed By: #### A JIMU9S #### [address] [id number] Comb Fixer: Trey Carroll MD #### HEATHER CDP, MG #### [address] [place] [address] Comb Fixer: Belia Mnajarrez MD Potassium [Moles/Vol] 4.2 mmol/L Normal 3.7-5.3 [facility] Comment on above: Performed By: #### A DAU9S #### [address] [id number] Comb Fixer: Trey Carroll MD #### HEATHER CDP, MG #### [facility] [address] [place] [address] [place] [address] Comb Fixer: Belia Manjarrez MD Protein [Mass/Vol] 7.4 g/dL Normal 6.4-8.3 [facility] Comment on above: Performed By: #### A DAU9S #### [facility] [address] [place], [place] [id number] Comb Fixer: Trey Carroll MD #### HEATHER CDP, MG #### [address] [place] [address] Comb Fixer: Belia Manjarrez MD Sodium [Moles/Vol] 142 mmol/L Normal 135-144 [facility] Comment on above: Performed By: #### A DAU9S #### [facility] [address] [place] [address] Comb Fixer: Trey Carroll MD #### CP, CDP, MG #### [address] [place], [place] 7[address]83 Comb Fixer: Belia Manjarrez MD Urea nitrogen [Mass/Vol] 6 mg/dL Normal 6-20 [facility] Comment on above: Performed By: #### A DAU9S #### [facility] [address], [place] [id number] Comb Fixer: Trey Carroll MD #### CP, CDP, MG #### [address] [place], [place] 668[address]83 Comb Fixer: Belia Manjarrez MD Drug Scr, Abuse, Uron 2023 Amphetamine(s),Ur Negative Normal [facility]G [facility] Comment on above: Result Comment: (Positive cutoff 1000 ng/mL) Performed By: #### D AU #### [address] [place] [address] Comb Fixer: Belia Manjarrez MD Barbiturate(s),Ur Negative Normal NEG [facility] Comment on above: Result Comment: (Positive cutoff 200 ng/mL) Performed By: #### D AU #### [address] [place] [address] Comb Fixer: Belia Manjarrez MD Benzodiazepine(s) Negative Normal NEG [facility] Comment on above: Result Comment: (Positive cutoff 200 ng/mL) Performed By: #### D AU #### [address] [place], [place] 3757783 Comb Fixer: Belia Manjarrez MD Buprenorphrine, Ur Negative Normal NEG [facility] Comment on above: Result Comment: (Positive cutoff 5 ng/ml) Performed By: #### D AU #### [facility] [address] [place] [address] [place], [place] 8[address]83 Comb Fixer: Belia Manjarrez MD Cannabinoid(s),Ur Negative Normal [facility] Comment on above: Result Comment: (Positive cutoff 50 ng/mL) Performed By: #### D AU #### [facility] [address] [place] [address] [place] [address] Comb Fixer: Belia Manjarrez MD Cocaine Metabolite Negative [facility] Comment on above: Result Comment: (Positive cutoff 300 ng/mL) Performed By: #### D AU #### [address] [place] [id number] Comb Fixer: Belia Manjarrez MD Fentanyl, Urine Negative Normal [facility] Comment on above: Result Comment: (Positive cutoff 5 ng/ml) Performed By: #### D AU #### [address] [place], [place] 485[address]83 Comb Fixer: Belia Manjarrez MD Interpretive Info Assay provides medical screening only. The absence of expected drug(s) and/or Normal [facility] Comment on above: Result Comment: meta bolite(s) may indicate diluted or adulterated urine, limitations of testing or timing of collection. Testing for legal purposes should be confirmed by another method. To request confirmation of test result, please call the lab within 7 days of sample submission. Performed By: #### D AU #### [address] [place], [place] 8[address] Comb Fixer: Belia Manjarrez MD Methadone Ql (U) Negative Normal NEG [facility] Comment on above: Result Comment: (Positive cutoff 300 ng/mL) Performed By: #### D AU #### [address] [place], [place] [address]83 Comb Fixer: Belia Manjarrez MD Opiate(s), Ur Negative Normal NEG [facility] Comment on above: Result Comment: (Positive cutoff 300 ng/mL) Performed By: #### D AU #### [facility] [address] [place] [address] [place], [place] [id number] Comb Fixer: Belia Manjarrez MD Oxycodone, Urine Negative Normal NEG [facility] Comment on above: Result Comment: (Positive cutoff 100 ng/mL) Performed By: #### D AU #### [address] [place] [address] Comb Fixer: Belia Manjarrez MD Phencyclidine, Ur Negative Normal NEG [facility] Comment on above: Result Comment: (Positive cutoff 25 ng/mL) Performed By: #### D AU #### [address] [place], [place] 3981283 Comb Fixer: Belia Manjarrez MD Magnesiumon 06-12-2024 Magnesium [Mass/Vol] 2.2 mg/dL Normal 1.6-2.6 [facility] Comment on above: Performed By: #### A DAU9S #### [facility] [address] [place] [address] Comb Fixer: Trey Carroll MD #### HEATHER, CDP, MG #### [facility] [address] [place] [address] [place] [address] Comb Fixer: Belia Manjarrez MD XR knee LT 4V*on 09-13-2023 XR knee LT 4V* [facility] [employer] Other XR knee LT 4V* [facility] [employer] Other XR knee LT 4V* [address] [place] [address] [employer] Other XR knee LT 4V* [place] [address] No rth [employer] Other XR knee LT 4V* XRay Report [employer] Other XR knee LT 4V* Signed [employer] Other XR knee LT 4V* Patient: Josephine Herndon MR#: [id number] [employer] Other XR knee LT 4V* 8 [employer] Other XR knee LT 4V* : 1980 Acct:[id number] [employer] Other XR knee LT 4V* Age/Sex: 43 / F ADM Date: 09/13/23 [employer] Other XR knee LT 4V* Loc: XDUCLY Room: Type: REG CLI [employer] Other XR knee LT 4V* Attending Dr: Shae Love APRN [employer] Other XR knee LT 4V* Copies to: Shae Love APRN [employer] Other XR knee LT 4V* Ordering Provider: Shae Love APRN [employer] Other XR knee LT 4V* Date of Service: 09/13/23 [employer] Other XR knee LT 4V* XR/XR knee LT 4V*: Injury [employer] Other XR knee LT 4V* XR knee LT 4V* 09/13/2023 10:51 AM [employer] Other XR knee LT 4V* SIGNS AND SYMPTOMS: Twisting injury to left knee with pain and swelling medially [employer] Other XR knee LT 4V* PROTOCOL: Frontal, lateral, and oblique radiographs of the left knee [employer] Other XR knee LT 4V* COMPARISON: None Nort [employer] Other XR knee LT 4V* FINDINGS: [employer] Other XR knee LT 4V* The joint spaces are preserved. There is a moderate joint effusion. There is no evidence of fracture [employer] Other XR knee LT 4V* or dislocation. No significant soft tissue swelling. [employer] Other XR knee LT 4V* XR/XR knee LT 4V* [employer] Other XR knee LT 4V* IMPRESSION: [employer] Other XR knee LT 4V* No fracture. [employer] Other XR knee LT 4V* There is a moderate joint effusion. [employer] Other XR knee LT 4V* Impression dictated by: Donato Rockwell M.D.09/13/2023 11:19 AM [employer] Other XR knee LT 4V* Dictation Location: [place] [address] [employer] Other XR knee LT 4V* Transcribed By: NICKY 09/13/23 [facility] [employer] Other XR knee LT 4V* Dictated By: Donato Rockwell II, MD 09/13/23 [facility] [employer] Other XR knee LT 4V* Signed By: [employer] Other XR knee LT 4V* 09/13/23 Pets are family too [employer] Other XR knee LT 4V* [facility] [place] [address] [place] [id number] XRay Report Signed Patient: Josephine Herndon MR#: [id number] 8 : 1980 Acct:[id number] Age/Sex: 43 / F ADM Date: 09/13/23 Loc: XDUCLY Room: Type: [facility] Attending Dr: Shae Love APRN Copies to: [...] Donato Rockwell M.D.09/13/2023 11:19 AM Dictation Location: [place] [address] Transcribed By: [facility] 09/13/23 1119 Dictated By: Donato Rockwell II, MD 09/13/23 1118 Signed By: 09/13/23 1119 [facility] CT CHEST WO CONon 10-10-2022 [...] AMANDA CASSIDY Date: 2022-10-10 10:35 Normal [facility] Covid-19 PCR (CVDTB)on SARS-CoV-2 (COVID-19) RNA RAYMOND+probe Ql (Unsp spec) Not detected Normal NOT DETECTED [facility] Comment on above: Result Comment: When [...] for this test is supported by the [place] of Health and Human Service's declaration that [...] longer be used). Performed By: #### [facility] #### [facility] [address] [address] [address] CHEST WO CONon [...] Institute MAMM SCREEN 3D GUSTAVO CADon 09-01-2022 MG MAMM SCREEN 3D GUSTAVO CAD Patient: JOSEPHINE HERNDON Exam Date: 09/01/2022 : 1980 Gender:F Ordering : DR ANGELICA DE . Admission #: [id number] Family : Order #: [id number] CLICK HERE TO VIEW EXAM RADIOLOGY REPORT [...] bladder cancer at age 59. LOCATION: [facility] BREAST COMPOSITION: Scattered areas fibroglandular density. [...] PALPABLE LUMP SHOULD BE BIOPSIED. Dictated by: Bleia Hendricks MD on 09/01/2022 at 09:30 Approved by: Belia Hendricks MD on 09/01/2022 at 09:32 Normal [facility] PAP ACOG PANEL 2: 21 to 29on 06-02-2022 . . Normal [facility] Comment on above: Result Comment: Perf ormed at: WB Performed By: #### [id number] #### [facility] [address] [address] [address] Les Bryan Age Gdln ACOG Testing 30-65 Normal [facility] Comment on above: Performed By: #### [id number] #### [facility] [address] [place] [address] Dr. Les Bryan DIAGNOSIS: Comment Normal [facility] Comment on above: Result Comment: NEGA TIVE FOR INTRAEPITHELIAL LESION OR MALIGNANCY. Performed at: WB Performed By: #### [id number] #### [facility] [address] [place] [address] Dr. Les Bryan HPV Aptima Negative Normal Negative [facility] Comment on above: Result Comment: This nucleic acid amplification test detects fourteen high-risk HPV types (16,18,31,33,35,39,45,51,52,56,58,59,66,68) without differentiation. Performed at: =G Performed By: #### [id number] #### [facility] [address] [place] [address] Dr. Les Bryan Methodology: Comment Normal [facility] Comment on above: Result Comment: This liquid based ThinPrep(R) pap test was screened with the use of an image guided system. Performed at: WB Performed By: #### [id number] #### [facility] [address] [place] [address] Dr. Les Brayn Note: Comment Normal [facility] Comment on above: [...] Performed at: WB Performed By: #### [id number] #### [facility] [address] [place] [address] Dr. Les Bryan Performed by: Comment Normal [facility] Comment on above: Result Comment: Bella Cuevas [employer] Operator (ASCP) Performed at: WB Performed By: #### [id number] #### [facility] [address] [address] [address] Les Bryan Specimen adequacy: Comment Normal [facility] Comment on above: Result Comment: Sati sfactory for evaluation. Endocervical and/or squamous metaplastic cells (endocervical component) are present. Performed at: WB Performed By: #### [id number] #### [facility] [address] [address] [address] Les Bryan HEPATITIS PANEL, ACUTEon HBsAg Screen Negative Normal Negative [facility] Comment on above: Performed By: #### H EPACUT #### [facility] [address] [address] [address] Les Bryan HCV AB 0.2 s/co ratio Normal 0.0-0.9 [facility] Comment on above: Performed By: #### H EPACUT #### [facility] [address] [address] [address] Les Bryan Hep A Ab, IgM Negative Normal Negative [facility] Comment on above: Performed By: #### H EPACUT #### [facility] [address] [address] [address] Les Bryan Hep B Core Ab, IgM Negative Normal Negative [facility] Comment on above: Performed By: #### H EPACUT #### [facility] [address] [address] [address] Les Bryan Interpretation: Comment Normal [facility] Comment on above: Result Comment: Nega tive Not infected with HCV, unless recent infection is suspected or other evidence exists to indicate HCV infection. Performed By: #### H EPACUT #### [facility] [address] [address] [address] Les Bryan INSULINon 04-18-2022 Insulin 18.8 uIU/mL Normal 2.6-24.9 [facility] Comment on above: Performed By: #### I NSULIN #### [facility] [address] [place] [address] Dr. Les Bryan BILIRUBIN CONJUGATED (DIRECT )on 04-17-2022 BILI, CONJUGATED 0.1 mg/dL Normal 0.0-0.2 [facility] Comment on above: Performed By: #### RICARDO STEVENSON #### [facility] [address] [place] [address] Dr. Les Bryan BNPon 04-17-2022 Natriuretic peptide B (Bld) [Mass/Vol] 12.0 pg/mL Normal <=450.0 [facility] Comment on above: Performed By: #### RICARDO STEVENSON #### [facility] [address] [place] [address] Dr. Les Bryan CBC AUTO DIFFon 04-17-2022 BASO # 0.1 103/ul Normal 0.0-0.1 [facility] Comment on above: Performed By: #### C BC #### [facility] [address] [place] [address] Dr. Les Bryan Basophils/100 WBC (Bld) 0.6 % Normal 0.2-2.0 [facility] Comment on above: Performed By: #### C BC #### [facility] [address] [place] [address] Dr. Les rByan EO # 0.3 103/ul Normal 0.0-0.7 [facility] Comment on above: Performed By: #### C BC #### [facility] [address] [place] [address] Dr. Les Bryan Eosinophils/100 WBC (Bld) 3.0 % Normal 0.9-7.0 [facility] Comment on above: Performed By: #### C BC #### [facility] [address] [place] [address] Dr. Les Bryan Erythrocyte distribution width (RBC) [Ratio] 13.2 % Normal 11.0-15.0 [facility] Comment on above: Performed By: #### C BC #### [facility] [address] [place] [address] Dr. Les Bryan Hematocrit (Bld) [Volume fraction] 40.8 % Normal 36.0-48.0 [facility] Comment on above: Performed By: #### C BC #### [facility] [address] [place] [address] Dr. Les Bryan Hemoglobin (Bld) [Mass/Vol] 13.4 g/dL Normal 12.0-16.0 [facility] Comment on above: Performed By: #### C BC #### [facility] [address] [place] [address] Dr. Les Bryan IG # 0.07 10e3/ul Critically high 0.00-0.03 [facility] Comment on above: Performed By: #### C BC #### [facility] [address] [place] [address] Dr. Les Bryan IG % 0.8 % Critically high 0.0-0.5 [facility] Comment on above: Performed By: #### C BC #### [facility] [address] [place] [address] Dr. Les Bryan LYMPH # 2.8 103/ul Normal 1.2-3.8 [facility] Comment on above: Performed By: #### C BC #### [facility] [address] [place] [address] Dr. Les Bryan Lymphocytes/100 WBC (Bld) 31.7 % Normal 20.5-60.0 [facility] Comment on above: Performed By: #### C BC #### [facility] [address] [place] [address] Dr. Les Bryan MANUAL DIFF REQ NO Normal [facility] Comment on above: Performed By: #### C BC #### [facility] [address] [place] [address] Dr. Les Bryan MCH (RBC) [Entitic mass] 29.5 pg Normal 26.7-34.0 [facility] Comment on above: Performed By: #### C BC #### [facility] [address] [place] [address] Dr. Les Bryan MCHC (RBC) [Mass/Vol] 32.8 g/dL Normal 29.9-35.2 [facility] Comment on above: Performed By: #### C BC #### [facility] [address] [address] [address] Les Bryan MCV (RBC) [Entitic vol] 89.9 fL Normal 81.0-99.0 [facility] Comment on above: Performed By: #### C BC #### [facility] [address] [address] [address] Les Bryan MONO # 0.4 103/ul Normal 0.3-0.8 [facility] Comment on above: Performed By: #### C BC #### [facility] [address] [address] [address] Les Bryan Monocytes/100 WBC (Bld) 4.7 % Normal 1.7-12.0 [facility] Comment on above: Performed By: #### C BC #### [facility] [address] [place] [address] Dr. Les Bryan NEUT # 5.3 103/ul Normal 1.4-6.5 [facility] Comment on above: Performed By: #### C BC #### [facility] [address] [place] [address] Dr. Les Bryan Neutrophils/100 WBC (Bld) 59.2 % Normal 43.0-75.0 [facility] Comment on above: Performed By: #### C BC #### [facility] [address] [place] [address] Dr. Les Bryan Platelet mean volume (Bld) [Entitic vol] 9.1 fL Critically low 9.5-13.5 [facility] Comment on above: Performed By: #### C BC #### [facility] [address] [place] [address] Dr. Les Bryan PLT 309 103/ul Normal 150-450 [facility] Comment on above: Performed By: #### C BC #### [facility] [address] [place] [address] Dr. Les Bryan RBC 4.54 106/ul Normal 4.20-5.40 [facility] Comment on above: Performed By: #### C BC #### [facility] [address] [place] [address] Dr. Les Bryan WBC 8.9 103/ul Normal 4.0-11.0 [facility] Comment on above: Performed By: #### C BC #### [facility] [address] [place] [address] Dr. Les Bryan FREE T3on 04-17-2022 FREE T3 2.02 pg/mlL Critically low 2.18-3.98 [facility] Comment on above: Performed By: #### RICARDO STEVENSON #### [facility] [address] [place] [address] Dr. Les Bryan FREE THYROXINE INDEX T7on FTI 2.07 Normal 1.30-4.50 [facility] Comment on above: Performed By: #### RICARDO STEVENSON #### [facility] [address] [place] [address] Dr. Les Bryan T3U 30.0 % Normal 30.0-39.0 [facility] Comment on above: Performed By: #### RICARDO STEVENSON #### [facility] [address] [place] [address] Dr. Les Bryan T4 [Mass/Vol] 6.90 ug/dL Normal 4.80-13.90 [facility] Comment on above: Performed By: #### RICARDO STEVENSON #### [facility] [address] [place] [address] Dr. Les Bryan GLYCOHEMOGLOBIN A1Con 2021 ADA RECOMMENDATION SEE BELOW Normal [facility] Comment on above: Result Comment: ADA RECOMMENDED LIMIT 4.0 - 6.0 ADA THERAPEUTIC TARGET < 7.0 ACTION SUGGESTED > 7.0 Performed By: #### A 1C #### [facility] [address] [place] [address] Dr. Les Bryan Glucose [Mass/Vol] 120 mg/dL Normal [facility] Comment on above: Performed By: #### A 1C #### [facility] [address] [place] [address] Dr. Les Bryan HbA1c (Bld) [Mass fraction] 5.8 % Normal 4.5-6.2 [facility] Comment on above: Performed By: #### A 1C #### [facility] [address] [address] [address] Les Bryan IRONon 04-17-2022 Iron [Mass/Vol] 66.0 ug/dL Normal 50.0-170.0 [facility] Comment on above: Performed By: #### BARBER STEVENSONRO #### [facility] [address] [address] [address] Les Bryan LIPID PROFILEon 04-17-2022 CHOL-HDL RATIO NORM SEE BELOW Normal [facility] Comment on above: Result Comment: 3.3 - 4.4 LOW RISK 4.4 - 7.1 AVERAGE RISK 7.1 - 11.0 MODERATE RISK >11.0 HIGH RISK Performed By: #### BARBER STEVENSONRO #### [facility] [address] [address] [address] Les Bryan Cholesterol [Mass/Vol] 244 mg/dL Critically high <=200 [facility] Comment on above: Performed By: #### BARBER STEVENSONRO #### [facility] [address] [address] [address] Les Bryan Cholesterol in HDL [Mass/Vol] 55 mg/dL Normal 40-60 [facility] Comment on above: Performed By: #### BARBER STEVENSONRO #### [facility] [address] [address] [address] Les Bryan Cholesterol in LDL [Mass/Vol] 155.4 mg/dL Normal [facility] Comment on above: Performed By: #### BARBER STEVENSONRO #### [facility] [address] [address] [address] Les Bryan Cholesterol.total/Ch olesterol in HDL [Mass ratio] 4.4 {ratio} Normal [facility] Comment on above: Performed By: #### Andi GUY UMICRO #### [facility] [address] [address] [address] Les Bryan HDL NORMAL > or = 60 mg/dl - LOW CARDIOVASCULAR RISK <40 mg/dl - HIGH CARDIOVASCULAR RISK Normal [facility] Comment on above: Performed By: #### Andi GUY UMICRO #### [facility] [address] [place] [address] Dr. Les Bryan LDL CALC NORMAL SEE BELOW Normal [facility] Comment on above: Result Comment: <100 mg/dl OPTIMAL 100 - 129 mg/dl NEAR OR ABOVE OPTIMAL 130 - 159 mg/dl BORDERLINE HIGH 160 - 189 mg/dl HIGH >190 mg/dl VERY HIGH Performed By: #### Andi GUY UMICRO #### [facility] [address] [address] [address] Les Bryan Triglyceride [Mass/Vol] 168 mg/dL Critically high <=150 [facility] Comment on above: Performed By: #### Andi GUY UMICRO #### [facility] [address] [place] [address] Dr. Les Bryan VLDL CALC 33.6 mg/dL Normal [facility] Comment on above: Performed By: #### Andi GUY UMICRO #### [facility] [address] [place] [address] Dr. Les Bryan PROF 14(COMP METB)on 022 Albumin [Mass/Vol] 3.9 g/dL Normal 3.4-5.0 [facility] Comment on above: Performed By: #### Andi GUY UMICRO #### [facility] [address] [place] [address] Dr. Les Bryan Albumin/Globulin [Mass ratio] 0.9 {ratio} Normal [facility] Comment on above: Performed By: #### Andi GUY UMICRO #### [facility] [address] [place] [address] Dr. Les Bryan ALP [Catalytic activity/Vol] 137 U/L Critically high 46-116 [facility] Comment on above: Performed By: #### Andi GUY UMICRO #### [facility] [address] [address] [address] Les Bryan ALT [Catalytic activity/Vol] 104 U/L Critically high 14-59 [facility] Comment on above: Performed By: #### RICARDO STEVENSON #### [facility] [address] [place] [address] Dr. Les Bryan Anion gap [Moles/Vol] 13.3 mmol/L Normal [facility] Comment on above: Performed By: #### BARBER STEVENSONRO #### [facility] [address] [place] [address] Dr. Les Bryan AST [Catalytic activity/Vol] 59 U/L Critically high 15-37 [facility] Comment on above: Performed By: #### BARBER STEVENSONRO #### [facility] [address] [place] [address] Dr. Les Bryan Bilirubin [Mass/Vol] 0.3 mg/dL Normal 0.2-1.0 [facility] Comment on above: Performed By: #### RICARDO STEVENSON #### [facility] [address] [place] [address] Dr. Les Bryan Calcium [Mass/Vol] 9.0 mg/dL Normal 8.5-10.1 [facility] Comment on above: Performed By: #### RICARDO STEVENSON #### [facility] [address] [place] [address] Dr. Les Bryan Chloride [Moles/Vol] 104 mmol/L Normal 98-107 [facility] Comment on above: Performed By: #### ABRBER STEVENSONRO #### [facility] [address] [place] [address] Dr. Les Bryan CO2 [Moles/Vol] 25.0 mmol/L Normal 21.0-32.0 [facility] Comment on above: Performed By: #### RICARDO STEVENSON #### [facility] [address] [place] [address] Dr. Les Bryan Creatinine [Mass/Vol] 0.70 mg/dL Normal 0.55-1.02 [facility] Comment on above: Performed By: #### BARBER STEVENSONRO #### [facility] [address] [address] [address] Les Bryan EGFR-AF NIUEAN 111 mL/min/1.73m2 Normal >=60 [facility] Comment on above: Performed By: #### BARBER STEVENSONRO #### [facility] [address] [place] [address] Dr. Les Bryan EGFR-NON AF NIUEAN 92 mL/min/1.73m2 Normal >=60 [facility] Comment on above: Performed By: #### Andi GUY UMICRO #### [facility] [address] [place] [address] Dr. Les Bryan Globulin (S) [Mass/Vol] 4.3 g/dL Normal [facility] Comment on above: Performed By: #### Andi GUY UMICRO #### [facility] [address] [place] [address] Dr. Les Bryan Glucose [Mass/Vol] 104 mg/dL Normal 74-106 [facility] Comment on above: Performed By: #### Andi GUY UMICRO #### [facility] [address] [place] [address] Dr. Les Bryan Potassium [Moles/Vol] 4.3 mmol/L Normal 3.5-5.1 [facility] Comment on above: Performed By: #### Andi GUY UMICRO #### [facility] [address] [place] [address] Dr. Les Bryan Protein [Mass/Vol] 8.2 g/dL Normal 6.4-8.2 [facility] Comment on above: Performed By: #### Andi GUY, UMICRO #### [facility] [address] [place] [address] Dr. Les Bryan Sodium [Moles/Vol] 138 mmol/L Normal 136-145 [facility] Comment on above: Performed By: #### Andi GUY, UMICRO #### [facility] [address] [place] [address] Dr. Les Bryan Urea nitrogen [Mass/Vol] 10.0 mg/dL Normal 7.0-18.0 [facility] Comment on above: Performed By: #### RICARDO STEVENSON #### [facility] [address] [place] [address] Dr. Les Bryan Urea nitrogen/Creatinine [Mass ratio] 14.3 mg/mg Normal [facility] Comment on above: Performed By: #### RICARDO STEVENSON #### [facility] [address] [place] [address] Dr. Les Bryan TSHon 04-17-2022 TSH 4.067 uIU/mL Critically high 0.358-3.740 [facility] Comment on above: Performed By: #### T SH, DBIL, BNP, FT3, T7, LIPID, CMP #### [facility] [address] [place] [address] Dr. Les Bryan INSULINon 04-06-2022 Insulin 34.6 uIU/mL Critically high 2.6-24.9 [facility] Comment on above: Performed By: #### RICARDO STVEENSON #### [facility] [address] [place] [address] Dr. Les Bryan T4 LABCORPon 04-06-2022 T4 [Mass/Vol] 6.7 ug/dL Normal 4.5-12.0 [facility] Comment on above: Performed By: #### [id number] #### [facility] [address] [place] [address] Dr. Les Bryan BNPon 04-05-2022 Natriuretic peptide B (Bld) [Mass/Vol] 18.0 pg/mL Normal <=450.0 [facility] Comment on above: Performed By: #### RICARDO STEVENSON #### [facility] [address] [place] [address] Dr. Les Bryan CBC AUTO DIFFon 04-05-2022 BASO # 0.1 103/ul Normal 0.0-0.1 [facility] Comment on above: Performed By: #### [id number] #### [facility] [address] [place] [address] Dr. Les Bryan Basophils/100 WBC (Bld) 0.6 % Normal 0.2-2.0 [facility] Comment on above: Performed By: #### 4 [id number] #### [facility] [address] [place] [address] Dr. Les Bryan EO # 0.2 103/ul Normal 0.0-0.7 [facility] Comment on above: Performed By: #### 4 [id number] #### [facility] [address] [place] [address] Dr. Les Bryan Eosinophils/100 WBC (Bld) 1.9 % Normal 0.9-7.0 [facility] Comment on above: Performed By: #### 4 [id number] #### [facility] [address] [place] [address] Dr. Les Bryan Erythrocyte distribution width (RBC) [Ratio] 13.3 % Normal 11.0-15.0 [facility] Comment on above: Performed By: #### 4 [id number] #### [facility] [address] [place] [address] Dr. Les Bryan Hematocrit (Bld) [Volume fraction] 39.1 % Normal 36.0-48.0 [facility] Comment on above: Performed By: #### 4 [id number] #### [facility] [address] [place] [address] Dr. Les Bryan Hemoglobin (Bld) [Mass/Vol] 13.2 g/dL Normal 12.0-16.0 [facility] Comment on above: Performed By: #### 4 [id number] #### [facility] [address] [place] [address] Dr. Les Bryan IG # 0.08 10e3/ul Critically high 0.00-0.03 [facility] Comment on above: Performed By: #### [id number] #### [facility] [address] [place] [address] Dr. Les Bryan IG % 0.8 % Critically high 0.0-0.5 [facility] Comment on above: Performed By: #### [id number] #### [facility] [address] [place] [address] Dr. Les Bryan LYMPH # 3.0 103/ul Normal 1.2-3.8 [facility] Comment on above: Performed By: #### [id number] #### [facility] [address] [place] [address] Dr. Les Bryan Lymphocytes/100 WBC (Bld) 31.4 % Normal 20.5-60.0 [facility] Comment on above: Performed By: #### [id number] #### [facility] [address] [place] [address] Dr. Les Bryan MANUAL DIFF REQ NO Normal [facility] Comment on above: Performed By: #### [id number] #### [facility] [address] [place] [address] Dr. Les Bryan MCH (RBC) [Entitic mass] 30.1 pg Normal 26.7-34.0 [facility] Comment on above: Performed By: #### [id number] #### [facility] [address] [place] [address] Dr. Les Bryan MCHC (RBC) [Mass/Vol] 33.8 g/dL Normal 29.9-35.2 [facility] Comment on above: Performed By: #### [id number] #### [facility] [address] [place] [address] Dr. Les Bryan MCV (RBC) [Entitic vol] 89.1 fL Normal 81.0-99.0 [facility] Comment on above: Performed By: #### [id number] #### [facility] [address] [place] [address] Dr. Les Bryan MONO # 0.6 103/ul Normal 0.3-0.8 [facility] Comment on above: Performed By: #### [id number] #### [facility] [address] [place] [address] Dr. Les Bryan Monocytes/100 WBC (Bld) 6.1 % Normal 1.7-12.0 [facility] Comment on above: Performed By: #### [id number] #### [facility] [address] [place] [address] Dr. Les Bryan NEUT # 5.6 103/ul Normal 1.4-6.5 [facility] Comment on above: Performed By: #### 4 [id number] #### [facility] [address] [place] [address] Dr. Les Bryan Neutrophils/100 WBC (Bld) 59.2 % Normal 43.0-75.0 [facility] Comment on above: Performed By: #### 4 [id number] #### [facility] [address] [place] [address] Dr. Les Bryan Platelet mean volume (Bld) [Entitic vol] 9.0 fL Critically low 9.5-13.5 [facility] Comment on above: Performed By: #### [id number] #### [facility] [address] [place] [address] Dr. Les Bryan PLT 286 103/ul Normal 150-450 [facility] Comment on above: Performed By: #### [id number] #### [facility] [address] [place] [address] Dr. Les Bryan RBC 4.39 106/ul Normal 4.20-5.40 [facility] Comment on above: Performed By: #### [id number] #### [facility] [address] [place] [address] Dr. Les Bryan WBC 9.5 103/ul Normal 4.0-11.0 [facility] Comment on above: Performed By: #### [id number] #### [facility] [address] [place] [address] Dr. Les Bryan FREE T3on 04-05-2022 FREE T3 2.73 pg/mlL Normal 2.18-3.98 [facility] Comment on above: Performed By: #### RICARDO STEVENSON #### [facility] [address] [place] [address] Dr. Les Bryan FREE THYROXINE INDEX T7on FTI 2.08 Normal 1.30-4.50 [facility] Comment on above: Performed By: #### RICARDO STEVENSON #### [facility] [address] [address] [address] Les Bryan T3U 31.0 % Normal 30.0-39.0 [facility] Comment on above: Performed By: #### BARBER STEVENSONRO #### [facility] [address] [place] [address] Dr. Les Bryan T4 [Mass/Vol] 6.70 ug/dL Normal 4.80-13.90 [facility] Comment on above: Result Comment: T4 t esting performed by [facility] Performed By: #### RICARDO STEVENSON #### [facility] [address] [place] [address] Dr. Les Bryan GLYCOHEMOGLOBIN A1Con 2021 ADA RECOMMENDATION SEE BELOW Normal [facility] Comment on above: Result Comment: ADA RECOMMENDED LIMIT 4.0 - 6.0 ADA THERAPEUTIC TARGET < 7.0 ACTION SUGGESTED > 7.0 Performed By: #### [id number] #### [facility] [address] [place] [address] Dr. Les Bryan Glucose [Mass/Vol] 120 mg/dL Normal [facility] Comment on above: Performed By: #### 4 [id number] #### [facility] [address] [place] [address] Dr. Les Bryan HbA1c (Bld) [Mass fraction] 5.8 % Normal 4.5-6.2 [facility] Comment on above: Performed By: #### [id number] #### [facility] [address] [place] [address] Dr. Les Bryan IRONon 04-05-2022 Iron [Mass/Vol] 105.0 ug/dL Normal 50.0-170.0 [facility] Comment on above: Performed By: #### RICARDO STEVENSON #### [facility] [address] [place] [address] Dr. Les Bryan LIPID PROFILEon 04-05-2022 CHOL-HDL RATIO NORM SEE BELOW Normal [facility] Comment on above: Result Comment: 3.3 - 4.4 LOW RISK 4.4 - 7.1 AVERAGE RISK 7.1 - 11.0 MODERATE RISK >11.0 HIGH RISK Performed By: #### RICARDO STEVENSON #### [facility] [address] [place] [address] Dr. Les Bryan Cholesterol [Mass/Vol] 217 mg/dL Critically high <=200 [facility] Comment on above: Performed By: #### RICARDO STEVENSON #### [facility] [address] [place] [address] Dr. Les Bryan Cholesterol in HDL [Mass/Vol] 49 mg/dL Normal 40-60 [facility] Comment on above: Performed By: #### RICARDO STEVENSON #### [facility] [address] [place] [address] Dr. Les Bryan Cholesterol in LDL [Mass/Vol] 128.2 mg/dL Normal [facility] Comment on above: Performed By: #### RICARDO STEVENSON #### [facility] [address] [place] [address] Dr. Les Bryan Cholesterol.total/Ch olesterol in HDL [Mass ratio] 4.4 {ratio} Normal [facility] Comment on above: Performed By: #### RICARDO STEVENSON #### [facility] [address] [place] [address] Dr. Les Bryan HDL NORMAL > or = 60 mg/dl - LOW CARDIOVASCULAR RISK <40 mg/dl - HIGH CARDIOVASCULAR RISK Normal [facility] Comment on above: Performed By: #### BARBER STEEVNSONRO #### [facility] [address] [place] [address] Dr. Les Bryan LDL CALC NORMAL SEE BELOW Normal [facility] Comment on above: Result Comment: <100 mg/dl OPTIMAL 100 - 129 mg/dl NEAR OR ABOVE OPTIMAL 130 - 159 mg/dl BORDERLINE HIGH 160 - 189 mg/dl HIGH >190 mg/dl VERY HIGH Performed By: #### BARBER STEVENSONRO #### [facility] [address] [place] [address] Dr. Les Bryan Triglyceride [Mass/Vol] 199 mg/dL Critically high <=150 [facility] Comment on above: Performed By: #### RICARDO STEVENSON #### [facility] [address] [place] [address] Dr. Les Bryan VLDL CALC 39.8 mg/dL Normal [facility] Comment on above: Performed By: #### RICARDO STEVENSON #### [facility] [address] [place] [address] Dr. Les Bryan PROF 14(COMP METB)on 022 Albumin [Mass/Vol] 3.8 g/dL Normal 3.4-5.0 [facility] Comment on above: Performed By: #### RICARDO STEVENSON #### [facility] [address] [place] [address] Dr. Les Bryan Albumin/Globulin [Mass ratio] 0.9 {ratio} Normal [facility] Comment on above: Performed By: #### RICARDO STEVENSON #### [facility] [address] [place] [address] Dr. Les Bryan ALP [Catalytic activity/Vol] 122 U/L Critically high 46-116 [facility] Comment on above: Performed By: #### RICARDO STEVENSON #### [facility] [address] [place] [address] Dr. Les Bryan ALT [Catalytic activity/Vol] 90 U/L Critically high 14-59 [facility] Comment on above: Performed By: #### RICARDO STEVENSON #### [facility] [address] [place] [address] Dr. Les Bryan Anion gap [Moles/Vol] 13.5 mmol/L Normal [facility] Comment on above: Performed By: #### RICARDO STEVENSON #### [facility] [address] [place] [address] Dr. Les Bryan AST [Catalytic activity/Vol] 63 U/L Critically high 15-37 [facility] Comment on above: Performed By: #### RICARDO STEVENSON #### [facility] [address] [place] [address] Dr. Les Bryan Bilirubin [Mass/Vol] 0.4 mg/dL Normal 0.2-1.0 [facility] Comment on above: Performed By: #### BARBER STEVENSONRO #### [facility] [address] [place] [address] Dr. Les Bryan Calcium [Mass/Vol] 9.3 mg/dL Normal 8.5-10.1 [facility] Comment on above: Performed By: #### Andi GUY UMICRO #### [facility] [address] [address] [address] Les Bryan Chloride [Moles/Vol] 103 mmol/L Normal 98-107 [facility] Comment on above: Performed By: #### Andi GUY UMICRO #### [facility] [address] [place] [address] Dr. Les Bryan CO2 [Moles/Vol] 24.6 mmol/L Normal 21.0-32.0 [facility] Comment on above: Performed By: #### Andi GUY UMICRO #### [facility] [address] [place] [address] Dr. Les Bryan Creatinine [Mass/Vol] 0.70 mg/dL Normal 0.55-1.02 [facility] Comment on above: Performed By: #### Andi GUY UMICRO #### [facility] [address] [place] [address] Dr. Les Bryan EGFR-AF NIUEAN >60 Normal >=60 [facility] Comment on above: Performed By: #### Andi GUY UMICRO #### [facility] [address] [place] [address] Dr. Les Bryan EGFR-NON AF NIUEAN >60 Normal >=60 [facility] Comment on above: Performed By: #### Andi GUY UMICRO #### [facility] [address] [place] [address] Dr. Les Bryan Globulin (S) [Mass/Vol] 4.1 g/dL Normal [facility] Comment on above: Performed By: #### Andi GUY UMICRO #### [facility] [address] [place] [address] Dr. Les Bryan Glucose [Mass/Vol] 110 mg/dL Critically high 74-106 [facility] Comment on above: Performed By: #### E LOKESHR, UMICRO #### [facility] [address] [place] [address] Dr. Les Bryan Potassium [Moles/Vol] 4.1 mmol/L Normal 3.5-5.1 [facility] Comment on above: Performed By: #### E RUR, UMICRO #### [facility] [address] [place] [address] Dr. Les Bryan Protein [Mass/Vol] 7.9 g/dL Normal 6.4-8.2 [facility] Comment on above: Performed By: #### E BROOKS, UMICRO #### [facility] [address] [place] [address] Dr. Les Bryan Sodium [Moles/Vol] 137 mmol/L Normal 136-145 [facility] Comment on above: Performed By: #### E BROOKS, UMICRO #### [facility] [address] [place] [address] Dr. Les Bryan Urea nitrogen [Mass/Vol] 9.0 mg/dL Normal 7.0-18.0 [facility] Comment on above: Performed By: #### E BROOKS, UMICRO #### [facility] [address] [place] [address] Dr. Les Bryan Urea nitrogen/Creatinine [Mass ratio] 12.9 mg/mg Normal [facility] Comment on above: Performed By: #### E BROOKS, UMICRO #### [facility] [address] [place] [address] Dr. Les Bryan TSHon 04-05-2022 TSH 3.572 uIU/mL Normal 0.358-3.740 [facility] Comment on above: Performed By: #### E LOKESHR, UMICRO #### [facility] [address] [place] [address] Dr. Les Bryan TSH RANGE SEE BELOW Normal [facility] Comment on above: Result Comment: <0.3 4 UIU/ml HYPERTHYROID 0.34-5.60 UIU/ml EUTHYROID >5.60 UIU/ml HYPOTHYROID Performed By: #### E RICARDO GUY #### [facility] [address] [place] [address] Dr. Les Bryan XR KUB 1 VIEWon [...] AMANDA CASSIDY Date: 2022-02-27 15:05 Normal [facility] AMYLASEon 02-25-2022 Amylase [Catalytic activity/Vol] 34 U/L Normal 25-115 [facility] Comment on above: Performed By: #### [id number] #### [facility] [address] [place] [address] Dr. Les Bryan CBC AUTO DIFFon 02-25-2022 BASO # 0.0 103/ul Normal 0.0-0.1 [facility] Comment on above: Performed By: #### C BC #### [facility] [address] [place] [address] Dr. Les Bryan Basophils/100 WBC (Bld) 0.4 % Normal 0.2-2.0 [facility] Comment on above: Performed By: #### C BC #### [facility] [address] [place] [address] Dr. Les Bryan EO # 0.3 103/ul Normal 0.0-0.7 [facility] Comment on above: Performed By: #### C BC #### [facility] [address] [address] [address] Les Bryan Eosinophils/100 WBC (Bld) 3.6 % Normal 0.9-7.0 [facility] Comment on above: Performed By: #### C BC #### [facility] [address] [place] [address] Dr. Les Bryan Erythrocyte distribution width (RBC) [Ratio] 13.1 % Normal 11.0-15.0 [facility] Comment on above: Performed By: #### C BC #### [facility] [address] [place] [address] Dr. Les Bryan Hematocrit (Bld) [Volume fraction] 40.6 % Normal 36.0-48.0 [facility] Comment on above: Performed By: #### C BC #### [facility] [address] [place] [address] Dr. Les Bryan Hemoglobin (Bld) [Mass/Vol] 13.3 g/dL Normal 12.0-16.0 [facility] Comment on above: Performed By: #### C BC #### [facility] [address] [place] [address] Dr. Les Bryan IG # 0.06 10e3/ul Critically high 0.00-0.03 [facility] Comment on above: Performed By: #### C BC #### [facility] [address] [place] [address] Dr. Les Bryan IG % 0.6 % Critically high 0.0-0.5 [facility] Comment on above: Performed By: #### C BC #### [facility] [address] [place] [address] Dr. Les Bryan LYMPH # 3.6 103/ul Normal 1.2-3.8 [facility] Comment on above: Performed By: #### C BC #### [facility] [address] [place] [address] Dr. Les Bryan Lymphocytes/100 WBC (Bld) 38.2 % Normal 20.5-60.0 [facility] Comment on above: Performed By: #### C BC #### [facility] [address] [place] [address] Dr. Les Bryan MANUAL DIFF REQ NO Normal [facility] Comment on above: Performed By: #### C BC #### [facility] [address] [place] [address] Dr. Les Bryan MCH (RBC) [Entitic mass] 29.7 pg Normal 26.7-34.0 [facility] Comment on above: Performed By: #### C BC #### [facility] [address] [place] [address] Dr. Les Bryan MCHC (RBC) [Mass/Vol] 32.8 g/dL Normal 29.9-35.2 [facility] Comment on above: Performed By: #### C BC #### [facility] [address] [place] [address] Dr. Les Bryan MCV (RBC) [Entitic vol] 90.6 fL Normal 81.0-99.0 [facility] Comment on above: Performed By: #### C BC #### [facility] [address] [place] [address] Dr. Les Bryan MONO # 0.5 103/ul Normal 0.3-0.8 [facility] Comment on above: Performed By: #### C BC #### [facility] [address] [place] [address] Dr. Les Bryan Monocytes/100 WBC (Bld) 5.4 % Normal 1.7-12.0 [facility] Comment on above: Performed By: #### C BC #### [facility] [address] [place] [address] Dr. Les Bryan NEUT # 4.9 103/ul Normal 1.4-6.5 [facility] Comment on above: Performed By: #### C BC #### [facility] [address] [place] [address] Dr. Les Bryan Neutrophils/100 WBC (Bld) 51.8 % Normal 43.0-75.0 [facility] Comment on above: Performed By: #### C BC #### [facility] [address] [place] [address] Dr. Les Bryan Platelet mean volume (Bld) [Entitic vol] 9.2 fL Critically low 9.5-13.5 [facility] Comment on above: Performed By: #### C BC #### [facility] [address] [place] [address] Dr. Les Bryan PLT 335 103/ul Normal 150-450 [facility] Comment on above: Performed By: #### C BC #### [facility] [address] [place] [address] Dr. Les Bryan RBC 4.48 106/ul Normal 4.20-5.40 [facility] Comment on above: Performed By: #### C BC #### [facility] [address] [place] [address] Dr. Les Bryan WBC 9.4 103/ul Normal 4.0-11.0 [facility] Comment on above: Performed By: #### C BC #### [facility] [address] [place] [address] ABD/PELVIS WO CONon [...] by: IWONA BRITT Date: 2022-02-25 19:05 Normal [facility] ER URINE PROFILEon 2 Bilirubin Ql (U) Negative Normal NEGATIVE [facility] Comment on above: Performed By: #### Andi GUY UMICRO #### [facility] [address] [place] [address] Dr. Les Bryan Clarity (U) CLEAR Normal CLEAR [facility] Comment on above: Performed By: #### Andi GUY UMICRO #### [facility] [address] [address] [address] Les Bryan Color (U) YELLOW Normal YELLOW [facility] Comment on above: Performed By: #### Andi GUY UMICRO #### [facility] [address] [address] [address] Les Bryan ERUCHANDLERD A micrscopic examination will be performed if indicated. Normal [facility] Comment on above: Performed By: #### Andi GUY UMICRO #### [facility] [address] [address] [address] Les Bryan Glucose Ql (U) Negative Normal NEGATIVE [facility] Comment on above: Performed By: #### E RUR UMICRO #### [facility] [address] [place] [address] Dr. Les Bryan Hemoglobin Ql (U) LARGE Abnormal NEGATIVE [facility] Comment on above: Performed By: #### E RUR, UMICRO #### [facility] [address] [place] [address] Dr. Les Bryan Ketones Ql (U) Negative Normal NEGATIVE [facility] Comment on above: Performed By: #### BARBER STEVENSONRO #### [facility] [address] [place] [address] Dr. Les Bryan LEUKOCYTES TRACE Abnormal NEGATIVE [facility] Comment on above: Performed By: #### BARBER STEVENSONRO #### [facility] [address] [place] [address] Dr. Les Bryan Nitrite Ql (U) Negative Normal NEGATIVE [facility] Comment on above: Performed By: #### BARBER STEVENSONRO #### [facility] [address] [place] [address] Dr. Les Bryan pH (U) 7.0 [pH] Normal 5-9 [facility] Comment on above: Performed By: #### BARBER STEVENSONRO #### [facility] [address] [place] [address] Dr. Les Bryan Protein (U) [Mass/Vol] 30 mg/dL Abnormal NEGATIVE/ TRACE [facility] Comment on above: Performed By: #### BARBER STEVENSONRO #### [facility] [address] [place] [address] Dr. Les Bryan SPEC GRAVITY 1.025 Normal 1.005-<=1.025 [facility] Comment on above: Performed By: #### BARBER STEVENSONRO #### [facility] [address] [place] [address] Dr. Les Bryan UR MICRO IND INDICATED Normal [facility] Comment on above: Performed By: #### BARBER STEVENSONRO #### [facility] [address] [place] [address] Dr. Les Bryan Urobilinogen Qn (U) 0.2 {Racqeul'U}/dL Normal 0.2 - 1. 0 [facility] Comment on above: Performed By: #### RICARDO STEVENSON #### [facility] [address] [place] [address] Dr. Les Bryan LIPASEon 02-25-2022 Lipase [Catalytic activity/Vol] 82.0 U/L Normal 73.0-393.0 [facility] Comment on above: Performed By: #### 4 [id number] #### [facility] [address] [place] [address] Dr. Les Bryan PROF 14(COMP METB)on Albumin [Mass/Vol] 3.7 g/dL Normal 3.4-5.0 [facility] Comment on above: Performed By: #### [id number] #### [facility] [address] [place] [address] Dr. Les Bryan Albumin/Globulin [Mass ratio] 0.9 {ratio} Normal [facility] Comment on above: Performed By: #### 4 [id number] #### [facility] [address] [place] [address] Dr. Les Bryan ALP [Catalytic activity/Vol] 129 U/L Critically high 46-116 [facility] Comment on above: Performed By: #### 4 [id number] #### [facility] [address] [place] [address] Dr. Les Bryan ALT [Catalytic activity/Vol] 86 U/L Critically high 14-59 [facility] Comment on above: Performed By: #### 4 [id number] #### [facility] [address] [place] [address] Dr. Les Bryan Anion gap [Moles/Vol] 15.3 mmol/L Normal [facility] Comment on above: Performed By: #### 4 [id number] #### [facility] [address] [place] [address] Dr. Les Bryan AST [Catalytic activity/Vol] 51 U/L Critically high 15-37 [facility] Comment on above: Performed By: #### 4 [id number] #### [facility] [address] [place] [address] Dr. Les Bryan Bilirubin [Mass/Vol] 0.2 mg/dL Normal 0.2-1.0 [facility] Comment on above: Performed By: #### 4 [id number] #### [facility] [address] [place] [address] Dr. Les Bryan Calcium [Mass/Vol] 8.4 mg/dL Critically low 8.5-10.[address] [facility] Comment on above: Performed By: #### [id number] #### [facility] [address] [place] [address] Dr. Les Bryan Chloride [Moles/Vol] 103 mmol/L Normal 98-107 [facility] Comment on above: Performed By: #### [id number] #### [facility] [address] [place] [address] Dr. Les Bryan CO2 [Moles/Vol] 26.2 mmol/L Normal 21.0-32.0 [facility] Comment on above: Performed By: #### [id number] #### [facility] [address] [place] [address] Dr. Les Bryan Creatinine [Mass/Vol] 0.72 mg/dL Normal 0.55-1.02 [facility] Comment on above: Performed By: #### [id number] #### [facility] [address] [place] [address] Dr. Les Bryan EGFR-AF NIUEAN >60 Normal >=60 [facility] Comment on above: Performed By: #### [id number] #### [facility] [address] [place] [address] Dr. Les Bryan EGFR-NON AF NIUEAN >60 Normal >=60 [facility] Comment on above: Performed By: #### [id number] #### [facility] [address] [place] [address] Dr. Les Bryan Globulin (S) [Mass/Vol] 4.2 g/dL Normal [facility] Comment on above: Performed By: #### [id number] #### [facility] [address] [place] [address] Dr. Les Bryan Glucose [Mass/Vol] 121 mg/dL Critically high 74-106 [facility] Comment on above: Performed By: #### [id number] #### [facility] [address] [place] [address] Dr. Les Bryan Potassium [Moles/Vol] 3.5 mmol/L Normal 3.5-5.1 [facility] Comment on above: Performed By: #### 4 [id number] #### [facility] [address] [place] [address] Dr. Les Bryan Protein [Mass/Vol] 7.9 g/dL Normal 6.1-8.2 [facility] Comment on above: Performed By: #### 4 [id number] #### [facility] [address] [place] [address] Dr. Les Bryan Sodium [Moles/Vol] 141 mmol/L Normal 136-145 [facility] Comment on above: Performed By: #### 4 [id number] #### [facility] [address] [place] [address] Dr. Les Bryan Urea nitrogen [Mass/Vol] 14.0 mg/dL Normal 7.0-18.0 [facility] Comment on above: Performed By: #### 4 [id number] #### [facility] [address] [place] [address] Dr. Les Bryan Urea nitrogen/Creatinine [Mass ratio] 19.4 mg/mg Normal [facility] Comment on above: Performed By: #### 4 [id number] #### [facility] [address] [place] [address] Dr. Les Bryan URINE MICROSCOPIC ONLYon BACTERIA TRACE Abnormal NONE SEEN [facility] Comment on above: Performed By: #### Andi GUY UMICRO #### [facility] [address] [place] [address] Dr. Les Bryan Bacteria identified Cx Nom (U) NOT INDICATED Normal [facility] Comment on above: Performed By: #### Andi GUY UMICRO #### [facility] [address] [place] [address] Dr. Les Bryan CAST NONE SEEN Normal NONE SEEN [facility] Comment on above: Performed By: #### Andi GUY UMICRO #### [facility] [address] [place] [address] [address] Les Bryan Crystals LM Nom (Urine sed) NONE SEEN Normal NONE SEEN [facility] Comment on above: Performed By: #### RICARDO STEVENSON #### [facility] [address] [place] [address] [address] Les Bryan Epithelial cells LM Ql (Urine sed) MODERATE Abnormal NONE SEEN /RARE [facility] Comment on above: Performed By: #### RICARDO STEVENSON #### [facility] [address] [place] [address] Dr. Les Bryan MUCOUS NONE SEEN Normal NONE SEEN [facility] Comment on above: Performed By: #### RICARDO STEVENSON #### [facility] [address] [place] [address] Dr. Les Bryan RBC 20-50 Abnormal 0-2 [facility] Comment on above: Result Comment: cren ated RBCs Performed By: #### RICARDO STEVENSON #### [facility] [address] [place] [address] Dr. Les Bryan WBC 2-5 Abnormal NONE SEEN [facility] Comment on above: Performed By: #### RICARDO STEVENSON #### [facility] [address] [place] [address] Dr. Les Bryan Vital Signs Date Time Vital Sign Value Performing Clinician Facility 12-02-2024 14:40-0500 Blood Pressure Location Jl FREDERICK [facility] [place] 12-02-2024 14:40-0500 Diastolic blood pressure 106 mm[Hg] Jl FREDERICK [facility] [place] 12-02-2024 14:40-0500 Heart rate 72 /min Jl FREDERICK [facility] [place] 12-02-2024 14:40-0500 Respiratory rate 16 /min Jl FREDERICK [facility] [place] 12-02-2024 14:40-0500 Systolic blood pressure 142 mm[Hg] Jl FREDERICK [facility] [place] 09-13-2023 10:30-0500 Body height 162.56 cm Shae Love Other [employer] Other 09-13-2023 10:30-0500 Body mass index (BMI) [Ratio] 23.14 kg/m2 Shae Love Other [employer] Other 09-13-2023 10:30-0500 Body temperature 98.4 [degF] Shae Love Other [employer] Other 09-13-2023 10:30-0500 Body weight 61.15 kg Shae Love Other [employer] Other 09-13-2023 10:30-0500 Respiratory rate 18 /min Shae Love Other [employer] Other 09-13-2023 10:30-0500 SaO2% (BldA) [Mass fraction] 99 % Shae Love Other [employer] Other 04-21-2022 09:07-0400 Blood Pressure Location Jl FREDERICK [facility] [place] 04-21-2022 09:07-0400 Diastolic blood pressure 86 mm[Hg] Jl BRIDGESL [facility] [place] 04-21-2022 09:07-0400 Heart rate 92 /min Jl BRIDGESL [facility] [place] 04-21-2022 09:07-0400 Respiratory rate 16 /min Jl YOLY [facility] [place] 04-21-2022 09:07-0400 Systolic blood pressure 127 mm[Hg] Jl FREDERICK [facility] [place] Encounters Encounter Date Encounter Type Care Provider Facility Start: 12-02-2024 End: 12-02-2024 ambulatory Jl FREDERICK Facility: [place] Start: 12-02-2024 End: 12-02-2024 Patient encounter procedure Jl FREDERICK [facility] [place] Start: 06-12-2024 End: 06-12-2024 Emergency department patient visit [facility] Start: 09-13-2023 Office outpatient ne w 20 minutes Shae Love [facility] Start: 09-13-2023 End: 09-13-2023 ambulatory Shae Love [facility] [employer] Other Start: 09-13-2023 End: 09-13-2023 Patient encounter procedure HAND TACKER Shae Love Work Phone: [facility] Work Phone: Start: [...] End: 04-21-2022 Patient encounter procedure Jl FREDERICK [facility] [place] Start: 04-20-[address] ANGELICA DE Facility :[facility] Start: 04-17-2022 End: 04-18-[address] ANGELICA DE Facility:[facility] Start: 04-05-2022 End: 04-06-[address] ANGELICA DE Facility:[facility] Start: 02-27-2022 End: 02-28-[address] ANGELICA DE Facility:[facility] Start: 02-25-2022 End: 02-25-2022 ambulatory EMILY MCDERMOTT Facility:[facility] Procedures Date Procedure Procedure Detail Performing Clinician Start: 09-13-2023 Radiologic examinati on of knee HAND TACKER Shae Love Work Phone: Start: 05-03-2022 Excision of dermatofibroma Jl FREDERICK Comment on above: left ankle Start: 07-08-2015 laparoscopic cholecy stectomy with intraoperative cholangiogram Jl FREDERICK Abdominal hysterectomy Sebastian munguia YOLY Bilateral complete salpingectomy Jl FREDERICK Diagnostic laparoscopy Sebastian nilda FREDERICK Loop electrosurgical excision procedure Jl FREDERICK Payers Date Payer Category Payer Unknown [id number] 1980 Unknown [id number] 2.16.84 [id number] 1980 Unknown [id number] 2.16.84 [id number] 1979 Unknown [id number] 2.16.84 [id number] 1979 Unknown [id number] 2.16.84 [id number] 1979 Unknown [id number] 2.16.84 [id number] 1979 Unknown [id number] 2.16.84 [id number] 1979 Unknown [id number] 2.16.84 [id number] 1979 Unknown [id number] 2.16.84 [id number] 1979 Unknown [id number] 2.16.84 [id number] 1979 Unknown [id number] 2.16.8 [id number] 1979 Unknown [id number] 2.16.8 [id number] 1960 Self-pay 1960 Unknown [id number] Unknown [id number] 2.16.8 [id number] Social History Date Type Detail Facility Start: 04-21-2022 Tobacco smoking status Ex-smoker (fi nding) [facility] Tobacco smoking status Never [facility] Sex Assigned At Female [facility] Start: 1980 Sex Assigned At Female [facility] Start: 12-02-2024 Tobacco smoking status Heavy t obacco smoker (finding) [facility] Functional Status Date Assessment Result Facility 12-02-2024 Functional Status N/A [facility] 04-21-2022 Functional Status N/A [facility] [place] Clinical Note [...] Primary malignant neoplasm of bladder: Father. [facility] Comment on above: Result Comment: Elec tronically [...] understanding and is agreeable to treatment plan [employer] Other Evaluation + Plan note Note Date & Type Note Facility Evaluation + Plan note Future Appointments Appointment Date:05/03/2022 03:00:00 PM Scheduled Provider:Jl FREDERICK MD Location:[facility] Appointment Type:GS Procedure 30 [facility] [place] Evaluation + Plan note Note Date & Type Note Facility Evaluation + Plan note Future Appointments Appointment Date:05/12/2022 03:40:00 PM Scheduled Provider:Jl FREDERICK MD Location:[facility] Appointment Type:GS Post Op 15 [facility] [place] Evaluation note Note Date & Type Note Facility Evaluation note No assessment information availa [facility] Work Phone: History general Narrative - Reported Note Date & Type Note Facility History general Narrative - Reported Type Medical History Anxiety disorder Medical History chronic depression Medical History thyriod Surgical History LEAP [employer] Other Hospital course Narrative Note Date & Type Note Facility Hospital course Narrative No data available for this section [facility] [place] [facility] Discharge instructions Note Date & Type Note Facility Hospital Discharge instructions No data available for this section [facility] [place] Progress note Note Date & Type Note Facility Progress note No data available for this section [facility] [place] Summary Purpose Family History No Family History [...] DATE CREATED AUTHOR AUTHOR'S ORGANIZ ATION 12/07/2023 [facility] DATE CREATED AUTHOR AUTHOR'S ORGANIZ ATION 06/15/2024 [facility] DATE CREATED AUTHOR AUTHOR'S ORGANIZ ATION 12/04/2024 [facility] REASON FOR VISIT (unrecogniz ed section [...] BE BASED ON THE PRIMARY CLINICAL RECORDS. The [employer] provides no warranty or guarantee of the accuracy or completeness of information in this document.
[2024-12-27 17:03] VITALS: BP 165/98; PULSE 101; TEMP 36.6; O2SAT 100; BMI 24.9
--- NOTE | 2024-12-27 17:22 | ED.GENADUL1 ---
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 Pt is now seeing Dr Avila and has plans in place to get the tumor removed later this month. Pt was shaving and accidentally cut into the area and now it is red and swollen and painful. She is concerned about infection. Related Data Previous Rx's ?Medication ?Instructions ?Recorded cephalexin 500 mg capsule 500 mg PO QID 7 days #28 caps 12/27/24 Allergies Allergy/AdvReac Type Severity Reaction Status Date / Time Latex, Natural Rubber Allergy Hives Verified 12/27/24 17:03 sulfamethoxazole (From Allergy Hives Verified 12/27/24 17:03 Bactrim) trimethoprim (From Bactrim) Allergy Hives Verified 12/27/24 17:03 Opioid HPI Opioid Management Most Recent Opioid Data: No Data to Display PFSH PFSH Social History Little interest or pleasure in doing things: not at all Feeling down, depressed, or hopeless: not at all Exam Narrative Exam Narrative: Nurses notes and vital signs reviewed and patient is not hypoxic. afebrile General: Well-appearing and in no apparent distress. Skin: Warm, dry, no pallor noted. See below re left ankle Eye: Pupils are equal, round and EOMI. No scleral icterus. Cardiovascular: Normal peripheral perfusion. Respiratory: No accessory muscle use or respiratory distress. Musculoskeletal: LEFT ANKLE = 3cm diameter area of erythema with surrounding tenderness and central excoriation at the lateral malleolus of the left ankle. Left foot and ankle with normal ROM, no calf or popliteal tenderness, no lower extremity edema/swelling. No proximal streaking of erythema in left LE. Neurological: A&O x4. No cranial nerve dysfunction observed. No truncal ataxia. Moves all extremities. Sensation intact. Psychiatric: Cooperative and interactive. Normal mood and affect. Constitutional Vital Signs, click to edit/add: Last Vital Signs Temp 98 F 12/27/24 17:03 Pulse 101 H 12/27/24 17:03 Resp 18 12/27/24 17:03 BP 165/98 H 12/27/24 17:03 Pulse Ox 100 12/27/24 17:03 O2 Del Method Room Air 12/27/24 17:03 Course Vital Signs Vital signs: Vital Signs Temperature 98 F 12/27/24 17:03 Pulse Rate 101 H 12/27/24 17:03 Respiratory Rate 18 12/27/24 17:03 Blood Pressure 165/98 H 12/27/24 17:03 Pulse Oximetry 100 12/27/24 17:03 Oxygen Delivery Method Room Air 12/27/24 17:03 Temperature 98 F 12/27/24 17:03 Pulse Rate 101 H 12/27/24 17:03 Respiratory Rate 18 12/27/24 17:03 Blood Pressure 165/98 H 12/27/24 17:03 Pulse Oximetry 100 12/27/24 17:03 Oxygen Delivery Method Room Air 12/27/24 17:03 Medical Decision Making MDM Narrative Medical decision making narrative: The patient has developed cellulitis of the left ankle after shaving herself and accidentally cutting the skin. There is nothing to suture. It is a superficial abrasion that has become infected. Patient was given a dose of Keflex in the emergency department prior to discharge as the pharmacies are about to close. She was given a second dose to be taken tonight before bedtime. Patient has no systemic symptoms or complaints. She already has close follow-up with Dr. Avila and also an association with Dr. Yo. She can see either these for follow-up if she has any concerns. Discharge Plan Discharge Chief Complaint: Extremity Injury, Lower Clinical Impression: Ankle cellulitis Patient Disposition: Home, Self-Care Time of Disposition Decision: 17:21 Prescriptions / Home Meds: New cephalexin 500 mg capsule 500 mg PO QID 7 Days Qty: 28 0RF Print Language: Mongolian Instructions: Cellulitis (ED) Referrals: Napoleon De MD [Primary Care Provider] - 1 week
[2024-12-27] MEDS: CEPHALEXIN 500 MG CAPSULE PO ×2 (17:30)
== END 2024-12-27 17:35 | disposition home or self-care (01) ==
PROVIDERS: Emergency Provider Emergency Medicine; PCP Family Medicine
DX: L03.116 Cellulitis of left lower limb (principal)
CPT/HCPCS: 99283

== ENCOUNTER 2025-01-01 12:33 | Outpatient (OUT) | payer BC, SELFPAY ==
--- OUTSIDE RECORDS SUMMARY | 2025-01-01 12:38 | XMS_ITS | CCD ---
Author Organization [facility] Care Team Providers Care Pump House Technician Name Role Phone Angelica De Primary Care Physician [phone] DR ANGELICA DE Primary Care Unavailable BEA [...] Shae Love Unavailable RUBY Love Attending Provider [phone] Shae Love Attending Unavailable Shae Love Admitting Unavailable Jl FREDERICK Attending Unavailable Allergies Allergy Classification Reported Allergen(s) Allergy Type Date of Onset Reaction(s) Facility (7 sources) Latex; Translations: [Latex] Drug allergy 3 Eruption of skin (disorder), rash [facility] [place] (6 sources) Sulfamethoxazole / Trimethoprim; Translations: [sulfamethoxazole-tr imethoprim] Drug Allergy Weal (disorder), hives [facility] (2 sources) natural latex rubber Drug allergy (disorder) [facility] Rep[facility] (2 sources) Sulfamethoxazole / Trimethoprim Drug Allergy [facility] (1 source) Sulfamethoxazole Drug Allergy 3 [facility] Repository (1 source) Trimethoprim Drug Allergy 3 [facility] Rep[facility] Medications Current Medications Medication Drug Class(es) [...] Drug Class(es) Dates Sig (Normalized) Sig (Original) Talbot-Linyah (1 source) Talbot-Linyah Not- Taking Problems Active Problems Problem Classification [...] choosing us for your care. Normal [facility], S/Jm 2023 Amphetamines, S/P Negative Normal Cutoff 20 [facility] Comment on above: Performed By: #### A DAU9S #### [facility] [address] [place] [address] [employer] Crewmember: Trey Carroll MD #### CP, MARITZA, MG #### [facility] [address] [place] [address] [employer] Crewmember: Belia Manjarrez MD Barbiturates, S/P Negative Normal Cutoff 50 [facility] Comment on above: Performed By: #### A DAU9S #### [facility] [address] [place] [address] [employer] Crewmember: Tery Carroll MD #### CP, CDP, MG #### [facility] [address] [place] [address] [employer] Crewmember: Belia Manjarrez MD Benzodiazepines, S/P Negative Normal Cutoff 50 [facility] Comment on above: Performed By: #### A DAU9S #### [facility] [address] [place] [address] [employer] Crewmember: Trey Carroll MD #### CP, CDP, MG #### [facility] [address] [place], [place] [id number] [employer] Crewmember: Belia Manjarrez MD Buprenorphine, S/P Negative Normal Cutoff 1 [facility] Comment on above: Performed By: #### A DAU9S #### [facility] [address] [place] [address] [employer] Crewmember: Trey Carroll MD #### CP, CDP, MG #### [facility] [address] [place] [address] [employer] Crewmember: Belia Manjarrez MD Cocaine, Serum/Plas Negative Normal Cutoff 20 [facility] Comment on above: Performed By: #### A DAU9S #### [facility] [address] [place] [address] [employer]member: Trey Carroll MD #### CP, CDP, MG #### [facility] [address] [place] [address] [employer] Crewmember: Belia Manjarrez MD Comment See Note Normal [facility] Comment on above: Result Comment: (NOT E) [...] developed and its performance characteristics determined by [facility]. It has not been cleared or approved by the [place] Food and Drug Administration. This test was performed in a CLIA certified laboratory and is intended for clinical purposes. Performed By: [facility] [address] [place] [address] [employer] Worker: Trace Vazquez MD, PhD CLIA Number: [id number] Performed By: #### A DAU9S #### [address] [address] [employer] Crewmember: Trey Carroll MD #### CP, CDP, MG #### [facility] [address] [place] [address] [employer] Crewmember: Belia Manjarrez MD Methadone, S/P Negative Normal Cutoff 25 [facility] Comment on above: Performed By: #### A DAU9S #### [facility] [address] [place] [address] [employer] Crewmember: Trey Carroll MD #### CP, CDP, MG #### [facility] [address] [place] [address] [employer] Crewmember: Belia Manjarrez MD Methamphetamine,S/P Negative Normal Cutoff 20 [facility] Comment on above: Performed By: #### A DAU9S #### [facility] [address] [place] [address] [employer] Crewmember: Trey Carroll MD #### CP, CDP, MG #### [facility] [address] [place], [place] [id number] [employer] Crewmember: Belia Manjarrez MD Opiates, Serum/Plas Negative Normal Cutoff 20 [facility] Comment on above: Performed By: #### A DAU9S #### [facility] [address] [place] [address] [employer] Crewmember: Trey Carroll MD #### CP, CDP, MG #### [facility] [address] [place] [address] [employer] Crewmember: Belia Manjarrez MD Oxycodone, S/P Negative Normal Cutoff 20 [facility] Comment on above: Performed By: #### A DAU9S #### [facility] [address] [place] [address] [employer] Crewmember: Trey Carroll MD #### CP, CDP, MG #### [facility] [address] [place], [place] [id number] [employer] Crewmember: Belia Manjarrez MD Phencyclidine, S/P Negative Normal Cutoff 10 [facility] Comment on above: Performed By: #### A DAU9S #### [facility] [address] [place] [address] [employer] Crewmember: Trey Carroll MD #### CP, CDP, MG #### [facility] [address] [place], [place] [id number] [employer] Crewmember: Belia Manjarrez MD THC, Serum/Plasma Negative Normal Cutoff 20 [facility] Comment on above: Performed By: #### A DAU9S #### [facility] [address] [place] [address] [employer]member: Trey Carroll MD #### CP, CDP, MG #### [facility] [address] [place] [address] [employer] Crewmember: Belia Manjarrez MD CBC with Diffon 06-12-2024 Abs. Basophil 0.04 k/uL Normal 0.00-0.[address] [facility] Comment on above: Performed By: #### A DAU9S #### [facility] [address] [place] [address] [employer]member: Trey Carroll MD #### HEATHER, CDP, MG #### [facility] [address] [place] [address] [place] [address] [employer] Crewmember: Belia Manjarrez MD Abs.Imm.Granulocyte 0.06 k/uL Normal 0.00-0.30 [facility] Comment on above: Performed By: #### A DAU9S #### [facility] [address] [place] [address] [employer]member: Trey Carroll MD #### HEATHER CDP, MG #### [address] [place] [address] [employer] Crewmember: Belia Manjarrez MD Abs.Neutrophil (Seg) 6.02 k/uL Normal 1.50-8.10 [facility] Comment on above: Performed By: #### A DAU9S #### [facility] [address] [place] [address] [employer] Crewmember: Trey Carroll MD #### CP, CDP, MG #### [facility] [address] [place] [address] [employer]member: Belia Manjarrez MD Basophils/100 WBC (Bld) 0 % Normal 0-2 [facility] Comment on above: Performed By: #### A DAU9S #### [facility] [address] [place] [address] [employer] Crewmember: Trey Carroll MD #### CP, CDP, MG #### [facility] [address] [place] [address] [place] [address] [employer] Crewmember: Belia Manjarrez MD Eosinophils (Bld) [#/Vol] 0.16 10*3/uL Normal 0.00-0.44 [facility] Comment on above: Performed By: #### A DAU9S #### [facility] [address] [place] [address] [employer] Crewmember: Trey Carroll MD #### HEATHER, CDP, MG #### [address] [place] [address] [employer]member: Belia Manjarrez MD Eosinophils/100 WBC (Bld) 2 % Normal 1-4 [facility] Comment on above: Performed By: #### A DAU9S #### [facility] [address] [place] [address] [employer] Crewmember: Trey Carroll MD #### HEATHER CDP, MG #### [address] [place] [address] [employer] Crewmember: Belia Manjarrez MD Erythrocyte distribution width (RBC) [Ratio] 13.3 % Normal 11.8-14.4 [facility] Comment on above: Performed By: #### A DAU9S #### [facility] [address] [place] [address] [employer]member: Trey Carroll MD #### CP, CDP, MG #### [address] [place] [address] [employer] Crewmember: Belia Manjarrez MD Hematocrit (Bld) [Volume fraction] 41.0 % Normal 36.3-47.1 [facility] Comment on above: Performed By: #### A DAU9S #### [facility] [address] [place] [address] [employer] Crewmember: Trey Carroll MD #### CP, CDP, MG #### [facility] [address] [place] [address] [employer] Crewmember: Belia Manjarrez MD Hemoglobin (Bld) [Mass/Vol] 14.1 g/dL Normal 11.9-15.1 [facility] Comment on above: Performed By: #### A DAU9S #### [facility] [address] [place] [address] [employer] Crewmember: Trey Carroll MD #### CP, CDP, MG #### [facility] [address] [place] [address] [employer] Crewmember: Belia Manjarrez MD Immature granulocytes/100 WBC (Bld) 1 % High 0 [facility] Comment on above: Performed By: #### A DAU9S #### [facility] [address] [place] [address] [employer]member: Trey Carroll MD #### HEATHER, CDP, MG #### [facility] [address] [place] [address] [place] [address] [employer]member: Belia Manjarrez MD Lymphocytes (Bld) [#/Vol] 3.39 10*3/uL Normal 1.10-3.70 [facility] Comment on above: Performed By: #### A DAU9S #### [facility] [address] [place] [address] [employer]member: Trey Carroll MD #### CP, CDP, MG #### [facility] [address] [place] [address] [employer]member: Belia Manjarrez MD Lymphocytes/100 WBC (Bld) 33 % Normal 24-43 [facility] Comment on above: Performed By: #### A DAU9S #### [facility] [address] [place] [address] [employer] Crewmember: Trey Carroll MD #### CP, CDP, MG #### [facility] [address] [place] [address] [employer] Crewmember: Belia Manjarrez MD MCH (RBC) [Entitic mass] 30.9 pg Normal 25.2-33.5 [facility] Comment on above: Performed By: #### A DAU9S #### [facility] [address] [place] [address] [employer]member: Trey Carroll MD #### HEATHER CDP, MG #### [facility] [address] [place] [address] [employer] Crewmember: Belia Manjarrez MD MCHC (RBC) [Mass/Vol] 34.4 g/dL Normal 28.4-34.8 [facility] Comment on above: Performed By: #### A DAU9S #### [facility] [address] [place] [address] [employer] Crewmember: Trey Carroll MD #### HEATHER CDP, MG #### [facility] [address] [place] [address] [employer] Crewmember: Belia Manjarrez MD MCV (RBC) [Entitic vol] 89.9 fL Normal 82.6-102.9 [facility] Comment on above: Performed By: #### A DAU9S #### [facility] [address] [place], [place] [id number] [employer]member: Trey Carroll MD #### CP, CDP, MG #### [facility] [address] [place] [address] [employer]member: Belia Manjarrez MD Monocytes (Bld) [#/Vol] 0.67 10*3/uL Normal 0.10-1.20 [facility] Comment on above: Performed By: #### A DAU9S #### [facility] [address] [place] [address] [employer]member: Trey Carroll MD #### CP, CDP, MG #### [facility] [address] [place] [address] [employer]member: Belia Manjarrez MD Monocytes/100 WBC (Bld) 7 % Normal 3-12 [facility] Comment on above: Performed By: #### A DAU9S #### [facility] [address] [place] [address] [employer]member: Trey Carroll MD #### CP, CDP, MG #### [facility] [address] [place] [address] [employer] Crewmember: Belia Manjarrez MD Neutrophil (Seg) 57 % Normal 36-65 [facility] Comment on above: Performed By: #### A DAU9S #### [facility] [address] [place] [address] [employer]member: Trey Carroll MD #### HEATHER, CDP, MG #### [facility] [address] [place] [address] [employer] Crewmember: Belia Manjarrez MD NRBC Automated 0.0 per 100 WBC Normal 0.0 [facility] Comment on above: Performed By: #### A DAU9S #### [facility] [address] [place] [address] [employer] Crewmember: Trey Carroll MD #### CP, CDP, MG #### [facility] [address] [place] [address] [employer]member: Belia Manjarrez MD Platelet mean volume (Bld) [Entitic vol] 9.6 fL Normal 8.1-13.5 [facility] Comment on above: Performed By: #### A DAU9S #### [facility] [address] [place] [address] [employer]member: Trey Carroll MD #### CP, CDP, MG #### [facility] [address] [place] [address] [employer]member: Belia Manjarrez MD Platelets (Bld) [#/Vol] 314 10*3/uL Normal 138-453 [facility] Comment on above: Performed By: #### A DAU9S #### [facility] [address] [place] [address] [employer]member: Trey Carroll MD #### CP, CDP, MG #### [facility] [address] [place] [address] [employer]member: Belia Manjarrez MD RBC (Bld) [#/Vol] 4.56 10*6/uL Normal 3.95-5.11 [facility] Comment on above: Performed By: #### A DAU9S #### [facility] [address] [place] [address] [employer]member: Trey Carroll MD #### HEATHER, CDP, MG #### [facility] [address] [place] [address] [employer]member: Belia Manjarrez MD WBC (Bld) [#/Vol] 10.3 10*3/uL Normal 3.5-11.3 [facility] Comment on above: Performed By: #### A DAU9S #### [facility] [address] [place] [address] [employer]member: Trey Carroll MD #### CP, CDP, MG #### [facility] [address] [place] [address] [employer]member: Belia Manjarrez MD Comp Metabolic Profon 2023 Albumin [Mass/Vol] 4.4 g/dL Normal 3.5-5.2 [facility] Comment on above: Performed By: #### A DAU9S #### [facility] [address] [place] [address] [employer]member: Trey Carroll MD #### CP, CDP, MG #### [facility] [address] [place], [place] [id number] [employer]member: Belia Manjarrez MD Albumin/Glob Ratio 1.5 Normal 1.0-2.5 [facility] Comment on above: Performed By: #### A DAU9S #### [facility] [address] [place] [address] [employer]member: Trey Carroll MD #### HEATHER, CDP, MG #### [facility] [address] [place] [address] [employer] Crewmember: Belia Manjarrez MD Alkaline Phos 108 U/L High 35-[address] [facility] Comment on above: Performed By: #### A DAU9S #### [facility] [address] [place] [address] [employer]member: Trey Carroll MD #### HEATHER, CDP, MG #### [facility] [address] [place] [address] [employer]member: Belia Manjarrez MD ALT [Catalytic activity/Vol] 46 U/L High 5-33 [facility] Comment on above: Performed By: #### A DAU9S #### [facility] [address] [place] [address] [employer] Crewmember: Trey Carroll MD #### CP, CDP, MG #### [facility] [address] [place] [address] [employer]member: Belia Manjarrez MD Anion gap [Moles/Vol] 10 mmol/L Normal 9-17 [facility] Comment on above: Performed By: #### A DAU9S #### [facility] [address] [place] [address] [employer]member: Trey Carroll MD #### CP, CDP, MG #### [facility] [address] [place] [address] [employer] Crewmember: Belia Manjarrez MD AST [Catalytic activity/Vol] 32 U/L High <32 [facility] Comment on above: Performed By: #### A DAU9S #### [facility] [address] [place] [address] [employer]member: Trey Carroll MD #### CP, CDP, MG #### [facility] [address] [place] [address] [employer]member: Belia Manjarrez MD Bilirubin [Mass/Vol] 0.4 mg/dL Normal 0.3-1.2 [facility] Comment on above: Performed By: #### A DAU9S #### [facility] [address] [place] [address] [employer]member: Trey Carroll MD #### CP, CDP, MG #### [facility] [address] [place] [address] [employer] Crewmember: Belia Manjarrez MD BUN/CRE Ratio 12 Normal 9-[address] [facility] Comment on above: Performed By: #### A DAU9S #### [facility] [address] [place] [address] [employer]member: Trey Carroll MD #### CP, CDP, MG #### [facility] [address] [place] [address] [employer]member: Belia Manjarrez MD Calcium [Mass/Vol] 9.1 mg/dL Normal 8.6-10.4 [facility] Comment on above: Performed By: #### A DAU9S #### [facility] [address] [place] [address] [employer]member: Trey Carroll MD #### CP, CDP, MG #### [facility] [address] [place] [address] [employer] Crewmember: Belia Manjarrez MD Chloride [Moles/Vol] 106 mmol/L Normal 98-107 [facility] Comment on above: Performed By: #### A DAU9S #### [facility] [address] [place], [place] [id number] [employer]member: Trey Carroll MD #### CP, CDP, MG #### [facility] [address] [place] [address] [employer]member: Belia Manjarrez MD CO2 [Moles/Vol] 26 mmol/L Normal 20-31 [facility] Comment on above: Performed By: #### A DAU9S #### [facility] [address] [place], [place] [id number] [employer]member: Trey Carroll MD #### CP, CDP, MG #### [facility] [address] [place] [address] [employer]member: Belia Manjarrez MD Creatinine [Mass/Vol] 0.5 mg/dL Normal 0.5-0.9 [facility] Comment on above: Performed By: #### A DAU9S #### [facility] [address] [place] [address] [employer]member: Trey Carroll MD #### CP, CDP, MG #### [facility] [address] [place] [address] [employer]member: Belia Manjarrez MD GFR/1.73 sq M.predicted among non-blacks MDRD (S/P/Bld) [Vol rate/Area] mL/min/{1.73_m2} Normal >60 [facility] Comment on above: Result Comment: These results [...] By: #### A DAU9S #### [facility] [address] [place] [id number] [employer]member: Trey Carroll MD #### HEATHER, CDP, MG #### [facility] [address] [place] [address] [employer]member: Belia Manjarrez MD Glucose [Mass/Vol] 90 mg/dL Normal 70-99 [facility] Comment on above: Performed By: #### A JIMU9S #### [address] [id number] [employer]member: Trey Carroll MD #### HEATHER CDP, MG #### [address] [place] [address] [employer] Crewmember: Belia Manjarrez MD Potassium [Moles/Vol] 4.2 mmol/L Normal 3.7-5.3 [facility] Comment on above: Performed By: #### A DAU9S #### [address] [id number] [employer]member: Trey Carroll MD #### HEATHER CDP, MG #### [facility] [address] [place] [address] [place] [address] [employer]member: Belia Manjarrez MD Protein [Mass/Vol] 7.4 g/dL Normal 6.4-8.3 [facility] Comment on above: Performed By: #### A DAU9S #### [facility] [address] [place], [place] [id number] [employer]member: Trey Carroll MD #### HEATHER CDP, MG #### [address] [place] [address] [employer]member: Belia Manjarrez MD Sodium [Moles/Vol] 142 mmol/L Normal 135-144 [facility] Comment on above: Performed By: #### A DAU9S #### [facility] [address] [place] [address] [employer]member: Trey Carroll MD #### CP, CDP, MG #### [address] [place], [place] [id number] [employer]member: Belia Manjarrez MD Urea nitrogen [Mass/Vol] 6 mg/dL Normal 6-20 [facility] Comment on above: Performed By: #### A DAU9S #### [facility] [address] [place], [place] [id number] [employer]member: Trey Carroll MD #### CP, CDP, MG #### [address] [place], [place] [id number] [employer]member: Belia Manjarrez MD Drug Scr, Abuse, Uron 2023 Amphetamine(s),Ur Negative Normal NEG [facility] Comment on above: Result Comment: (Positive cutoff 1000 ng/mL) Performed By: #### D AU #### [address] [place] [address] [employer]: Belia Manjarrez MD Barbiturate(s),Ur Negative Normal NEG [facility] Comment on above: Result Comment: (Positive cutoff 200 ng/mL) Performed By: #### D AU #### [address] [place] [address] [employer]: Belia Manjarrez MD Benzodiazepine(s) Negative Normal NEG [facility] Comment on above: Result Comment: (Positive cutoff 200 ng/mL) Performed By: #### D AU #### [address] [place], [place] [id number] [employer]: Belia Manjarrez MD Buprenorphrine, Ur Negative Normal NEG [facility] Comment on above: Result Comment: (Positive cutoff 5 ng/ml) Performed By: #### D AU #### [facility] [address] [place] [address] Dr[address] [place], [place] [id number] [employer]: Belia Manjarrez MD Cannabinoid(s),Ur Negative Normal [facility] Comment on above: Result Comment: (Positive cutoff 50 ng/mL) Performed By: #### D AU #### [facility] [address] [place] [address] [place] [address] [employer]: Belia Manjarrez MD Cocaine Metabolite Negative [facility] Comment on above: Result Comment: (Positive cutoff 300 ng/mL) Performed By: #### D AU #### [address] [place] [id number] [employer]: Belia Manjarrez MD Fentanyl, Urine Negative Normal [facility] Comment on above: Result Comment: (Positive cutoff 5 ng/ml) Performed By: #### D AU #### [address] [place], [place] [id number] [employer]: Belia Manjarrez MD Interpretive Info Assay provides medical screening only. The absence of expected drug(s) and/or Normal [facility] Comment on above: Result Comment: meta bolite(s) may indicate diluted or adulterated urine, limitations of testing or timing of collection. Testing for legal purposes should be confirmed by another method. To request confirmation of test result, please call the lab within 7 days of sample submission. Performed By: #### D AU #### [address] [place], [place] [id number] [employer]: Belia Manjarrez MD Methadone Ql (U) Negative Normal NEG [facility] Comment on above: Result Comment: (Positive cutoff 300 ng/mL) Performed By: #### D AU #### [address] [place], [place] [id number] [employer]: Belia Manjarrez MD Opiate(s), Ur Negative Normal NEG [facility] Comment on above: Result Comment: (Positive cutoff 300 ng/mL) Performed By: #### D AU #### [facility] [address] [place] [address] Dr[place], [place] [phone] [employer]: Belia Manjarrez MD Oxycodone, Urine Negative Normal NEG [facility] Comment on above: Result Comment: (Positive cutoff 100 ng/mL) Performed By: #### D AU #### [address] [place] [address] [employer]: Belia Manjarrez MD Phencyclidine, Ur Negative Normal NEG [facility] Comment on above: Result Comment: (Positive cutoff 25 ng/mL) Performed By: #### D AU #### [address] [place], [place] [id number] [employer]: Belia Manjarrez MD Magnesiumon 06-12-2024 Magnesium [Mass/Vol] 2.2 mg/dL Normal 1.6-2.6 [facility] Comment on above: Performed By: #### A [id number] #### [facility] [address] [place] [address] [employer]: Trey Carroll MD #### HEATHER, CDP, MG #### [facility] [address] [place] [address] [place] [address] [employer]: Belia Manjarrez MD XR knee LT 4V*on 09-13-2023 XR knee LT 4V* [facility] [employer] Other XR knee LT 4V* [facility] [employer] Other XR knee LT 4V* [address] [place] [address] [employer] Other XR knee LT 4V* [place] [address] No rth [employer] Other XR knee LT 4V* XRay Report [employer] Other XR knee LT 4V* Signed [employer] Other XR knee LT 4V* Patient: Josephine Herndon MR#: [id number] [employer] Other XR knee LT 4V* 8 [employer] Other XR knee LT 4V* : 1980 Acct:[id number] [employer] Other XR knee LT 4V* Age/Sex: 43 / F ADM Date: 09/13/23 [employer] Other XR knee LT 4V* Loc: XDUCLY Room: Type: REG CLI [employer] Other XR knee LT 4V* Attending Dr: Shae Love APRN [employer] Other XR knee LT 4V* Copies to: Shae Love APRN [employer] Other XR knee LT 4V* Ordering Provider: Shae Love APRN [employer] Other XR knee LT 4V* Date of Service: 09/13/23 [employer] Other XR knee LT 4V* XR/XR knee LT 4V*: Injury [employer] Other XR knee LT 4V* XR knee LT 4V* 09/13/2023 10:51 AM [employer] Other XR knee LT 4V* SIGNS AND SYMPTOMS: Twisting injury to left knee with pain and swelling medially [employer] Other XR knee LT 4V* PROTOCOL: Frontal, lateral, and oblique radiographs of the left knee [employer] Other XR knee LT 4V* COMPARISON: None [place] [employer] Other XR knee LT 4V* FINDINGS: [employer] Other XR knee LT 4V* The joint spaces are preserved. There is a moderate joint effusion. There is no evidence of fracture [employer] Other XR knee LT 4V* or dislocation. No significant soft tissue swelling. [employer] Other XR knee LT 4V* XR/XR knee LT 4V* [employer] Other XR knee LT 4V* IMPRESSION: [employer] Other XR knee LT 4V* No fracture. [employer] Other XR knee LT 4V* There is a moderate joint effusion. [employer] Other XR knee LT 4V* Impression dictated by: Donato Rockwell M.D.09/13/2023 11:19 AM [employer] Other XR knee LT 4V* Dictation Location: [place] [address] [employer] Other XR knee LT 4V* Transcribed By: NICKY 09/13/23 [facility] [employer] Other XR knee LT 4V* Dictated By: Donato Rockwell II, MD 09/13/23 [facility] [employer] Other XR knee LT 4V* Signed By: [employer] Other XR knee LT 4V* 09/13/23 [employer] Other XR knee LT 4V* [facility] [place] [address] [place] [id number] XRay Report Signed Patient: Josephine Herndon MR#: [id number] : 1980 Acct:[id number] Age/Sex: 43 / F ADM Date: 09/13/23 Loc: XDUCLY Room: Type: [facility] Attending Dr: Shae Love APRN Copies to: [...] Donato Rockwell M.D.09/13/2023 11:19 AM Dictation Location: [place] [address] Transcribed By: [facility] 09/13/23 1119 Dictated By: Donato Rockwell II, MD 09/13/23 1118 Signed By: 09/13/[address] [facility] [address] CHEST WO CONon 10-10-2022 CT [...] AMANDA CASSIDY Date: 2022-10-10 10:35 Normal [facility] Covid-19 PCR (CVDTB)on SARS-CoV-2 (COVID-19) RNA RAYMOND+probe Ql (Unsp spec) Not detected Normal NOT DETECTED [facility] Comment on above: Result Comment: When diagnostic [...] for this test is supported by the [place] of Health and Human Service's declaration that [...] longer be used). Performed By: #### [facility] #### [facility] [address] [place] [address] [address] CHEST WO CONon [...] Center MAMM SCREEN 3D GUSTAVO CADon 09-01-2022 MG MAMM SCREEN 3D GUSTAVO CAD Patient: JOSEPHINE HERNDON Exam Date: 09/01/2022 : 1980 Gender:F Ordering : DR ANGELICA DE . Admission #: [id number] Family : Order #: [id number] CLICK HERE TO VIEW EXAM RADIOLOGY REPORT [...] bladder cancer at age 59. LOCATION: [facility] BREAST COMPOSITION: Scattered areas fibroglandular density. FINDINGS: [...] Hendricks MD on 09/01/2022 at 09:32 Normal [facility] PAP ACOG PANEL 2: 21 to 29on 06-02-2022 . . Normal [facility] Comment on above: Result Comment: Perf ormed at: WB Performed By: #### [id number] #### [facility] [address] [place] [address] [address] Les Bryan Age Gdln ACOG Testing 30-65 Normal [facility] Comment on above: Performed By: #### [id number] #### [facility] [address] [place] [address] Dr. Les Bryan DIAGNOSIS: Comment Normal [facility] Comment on above: Result Comment: NEGA TIVE FOR INTRAEPITHELIAL LESION OR MALIGNANCY. Performed at: WB Performed By: #### [id number] #### [facility] [address] [place] [address] Dr. Les Bryan HPV Aptima Negative Normal Negative [facility] Comment on above: Result Comment: This nucleic acid amplification test detects fourteen high-risk HPV types (16,18,31,33,35,39,45,51,52,56,58,59,66,68) without differentiation. Performed at: =G Performed By: #### [id number] #### [facility] [address] [place] [address] Dr. Les Bryan Methodology: Comment Normal [facility] Comment on above: Result Comment: This liquid based ThinPrep(R) pap test was screened with the use of an image guided system. Performed at: WB Performed By: #### 4 [id number] #### [facility] [address] [place] [address] Dr. Les Bryan Note: Comment Normal [facility] Comment on above: Result Comment: The Pap smear is a screening test designed to aid in the detection of premalignant and malignant conditions of the uterine cervix. It is not a diagnostic procedure and should not be used as the sole means of detecting cervical cancer. Both false-positive and false-negative reports do occur. . Performed at: WB Performed By: #### [id number] #### [facility] [address] [place] [address] Dr. Les Bryan Performed by: Comment Normal [facility] Comment on above: Result Comment: Bella Cuevas Survey Superintendent (ASCP) Performed at: WB Performed By: #### [id number] #### [facility] [address] [place] [address] [address] Les Bryan Specimen adequacy: Comment Normal [facility] Comment on above: Result Comment: Sati sfactory for evaluation. Endocervical and/or squamous metaplastic cells (endocervical component) are present. Performed at: WB Performed By: #### [id number] #### [facility] [address] [place] [address] [address] Les Bryan HEPATITIS PANEL, ACUTEon HBsAg Screen Negative Normal Negative [facility] Comment on above: Performed By: #### H EPACUT #### [facility] [address] [place] [address] [address] Les Bryan HCV AB 0.2 s/co ratio Normal 0.0-0.9 [facility] Comment on above: Performed By: #### H EPACUT #### [facility] [address] [place] [address] [address] Les Bryan Hep A Ab, IgM Negative Normal Negative [facility] Comment on above: Performed By: #### H EPACUT #### [facility] [address] [place] [address] [address] Les Bryan Hep B Core Ab, IgM Negative Normal Negative [facility] Comment on above: Performed By: #### H EPACUT #### [facility] [address] [place] [address] [address] Les Bryan Interpretation: Comment Normal [facility] Comment on above: Result Comment: Nega tive Not infected with HCV, unless recent infection is suspected or other evidence exists to indicate HCV infection. Performed By: #### H EPACUT #### [facility] [address] [place] [address] [address] Les Bryan INSULINon 04-18-2022 Insulin 18.8 uIU/mL Normal 2.6-24.9 [facility] Comment on above: Performed By: #### I NSULIN #### [facility] [address] [place] [address] Dr. Les Bryan BILIRUBIN CONJUGATED (DIRECT )on 04-17-2022 BILI, CONJUGATED 0.1 mg/dL Normal 0.0-0.2 [facility] Comment on above: Performed By: #### RICARDO STEVENSON #### [facility] [address] [place] [address] Dr. Les Bryan BNPon 04-17-2022 Natriuretic peptide B (Bld) [Mass/Vol] 12.0 pg/mL Normal <=450.0 [facility] Comment on above: Performed By: #### RICARDO STEVENSON #### [facility] [address] [place] [address] Dr. Les Bryan CBC AUTO DIFFon 04-17-2022 BASO # 0.1 103/ul Normal 0.0-0.1 [facility] Comment on above: Performed By: #### C BC #### [facility] [address] [place] [address] Dr. Les Bryan Basophils/100 WBC (Bld) 0.6 % Normal 0.2-2.0 [facility] Comment on above: Performed By: #### C BC #### [facility] [address] [place] [address] Dr. Les Bryan EO # 0.3 103/ul Normal 0.0-0.7 [facility] Comment on above: Performed By: #### C BC #### [facility] [address] [place] [address] Dr. Les Bryan Eosinophils/100 WBC (Bld) 3.0 % Normal 0.9-7.0 [facility] Comment on above: Performed By: #### C BC #### [facility] [address] [place] [address] Dr. Les Bryan Erythrocyte distribution width (RBC) [Ratio] 13.2 % Normal 11.0-15.0 [facility] Comment on above: Performed By: #### C BC #### [facility] [address] [place] [address] Dr. Les Bryan Hematocrit (Bld) [Volume fraction] 40.8 % Normal 36.0-48.0 [facility] Comment on above: Performed By: #### C BC #### [facility] [address] [place] [address] Dr. Les Bryan Hemoglobin (Bld) [Mass/Vol] 13.4 g/dL Normal 12.0-16.0 [facility] Comment on above: Performed By: #### C BC #### [facility] [address] [place] [address] Dr. Les Bryan IG # 0.07 10e3/ul Critically high 0.00-0.03 [facility] Comment on above: Performed By: #### C BC #### [facility] [address] [place] [address] Dr. Les Bryan IG % 0.8 % Critically high 0.0-0.5 [facility] Comment on above: Performed By: #### C BC #### [facility] [address] [place] [address] Dr. Les Bryan LYMPH # 2.8 103/ul Normal 1.2-3.8 [facility] Comment on above: Performed By: #### C BC #### [facility] [address] [place] [address] Dr. Les Bryan Lymphocytes/100 WBC (Bld) 31.7 % Normal 20.5-60.0 [facility] Comment on above: Performed By: #### C BC #### [facility] [address] [place] [address] Dr. Les Bryan MANUAL DIFF REQ NO Normal [facility] Comment on above: Performed By: #### C BC #### [facility] [address] [place] [address] Dr. Les Bryan MCH (RBC) [Entitic mass] 29.5 pg Normal 26.7-34.0 [facility] Comment on above: Performed By: #### C BC #### [facility] [address] [place] [address] Dr. Les Bryan MCHC (RBC) [Mass/Vol] 32.8 g/dL Normal 29.9-35.2 [facility] Comment on above: Performed By: #### C BC #### [facility] [address] [place] [address] [address] Les Bryan MCV (RBC) [Entitic vol] 89.9 fL Normal 81.0-99.0 [facility] Comment on above: Performed By: #### C BC #### [facility] [address] [place] [address] [address] Les Bryan MONO # 0.4 103/ul Normal 0.3-0.8 [facility] Comment on above: Performed By: #### C BC #### [facility] [address] [place] [address] [address] Les Bryan Monocytes/100 WBC (Bld) 4.7 % Normal 1.7-12.0 [facility] Comment on above: Performed By: #### C BC #### [facility] [address] [place] [address] Dr. Les Bryan NEUT # 5.3 103/ul Normal 1.4-6.5 [facility] Comment on above: Performed By: #### C BC #### [facility] [address] [place] [address] Dr. Les Bryan Neutrophils/100 WBC (Bld) 59.2 % Normal 43.0-75.0 [facility] Comment on above: Performed By: #### C BC #### [facility] [address] [place] [address] Dr. Les Bryan Platelet mean volume (Bld) [Entitic vol] 9.1 fL Critically low 9.5-13.5 [facility] Comment on above: Performed By: #### C BC #### [facility] [address] [place] [address] Dr. Les Bryan PLT 309 103/ul Normal 150-450 [facility] Comment on above: Performed By: #### C BC #### [facility] [address] [place] [address] Dr. Les Bryan RBC 4.54 106/ul Normal 4.20-5.40 [facility] Comment on above: Performed By: #### C BC #### [facility] [address] [place] [address] Dr. Les Bryan WBC 8.9 103/ul Normal 4.0-11.0 [facility] Comment on above: Performed By: #### C BC #### [facility] [address] [place] [address] Dr. Les Bryan FREE T3on 04-17-2022 FREE T3 2.02 pg/mlL Critically low 2.18-3.98 [facility] Comment on above: Performed By: #### RICARDO STEVENSON #### [facility] [address] [place] [address] Dr. Les Bryan FREE THYROXINE INDEX T7on FTI 2.07 Normal 1.30-4.50 [facility] Comment on above: Performed By: #### RICARDO STEVENSON #### [facility] [address] [place] [address] Dr. Les Bryan T3U 30.0 % Normal 30.0-39.0 [facility] Comment on above: Performed By: #### RICARDO STEVENSON #### [facility] [address] [place] [address] Dr. Les Bryan T4 [Mass/Vol] 6.90 ug/dL Normal 4.80-13.90 [facility] Comment on above: Performed By: #### RICARDO STEVENSON #### [facility] [address] [place] [address] Dr. Les Bryan GLYCOHEMOGLOBIN A1Con 2021 ADA RECOMMENDATION SEE BELOW Normal [facility] Comment on above: Result Comment: ADA RECOMMENDED LIMIT 4.0 - 6.0 ADA THERAPEUTIC TARGET < 7.0 ACTION SUGGESTED > 7.0 Performed By: #### A 1C #### [facility] [address] [place] [address] Dr. Les Bryan Glucose [Mass/Vol] 120 mg/dL Normal [facility] Comment on above: Performed By: #### A 1C #### [facility] [address] [place] [address] Dr. Les Bryan HbA1c (Bld) [Mass fraction] 5.8 % Normal 4.5-6.2 [facility] Comment on above: Performed By: #### A 1C #### [facility] [address] [place] [address] [address] Les Bryan IRONon 04-17-2022 Iron [Mass/Vol] 66.0 ug/dL Normal 50.0-170.0 [facility] Comment on above: Performed By: #### BARBER STEVENSONRO #### [facility] [address] [address] [address] Les Bryan LIPID PROFILEon 04-17-2022 CHOL-HDL RATIO NORM SEE BELOW Normal [facility] Comment on above: Result Comment: 3.3 - 4.4 LOW RISK 4.4 - 7.1 AVERAGE RISK 7.1 - 11.0 MODERATE RISK >11.0 HIGH RISK Performed By: #### BARBER STEVENSONRO #### [facility] [address] [place] [address] [address] Les Bryan Cholesterol [Mass/Vol] 244 mg/dL Critically high <=200 [facility] Comment on above: Performed By: #### BARBER STEVENSONRO #### [facility] [address] [address] [address] Les Bryan Cholesterol in HDL [Mass/Vol] 55 mg/dL Normal 40-60 [facility] Comment on above: Performed By: #### BARBER STEVENSONRO #### [facility] [address] [address] [address] Les Bryan Cholesterol in LDL [Mass/Vol] 155.4 mg/dL Normal [facility] Comment on above: Performed By: #### BARBER STEVENSONRO #### [facility] [address] [address] [address] Les Bryan Cholesterol.total/Ch olesterol in HDL [Mass ratio] 4.4 {ratio} Normal [facility] Comment on above: Performed By: #### Andi GUY UMICRO #### [facility] [address] [address] [address] Les Bryan HDL NORMAL > or = 60 mg/dl - LOW CARDIOVASCULAR RISK <40 mg/dl - HIGH CARDIOVASCULAR RISK Normal [facility] Comment on above: Performed By: #### Andi GUY UMICRO #### [facility] [address] [place] [address] Dr. Les Bryan LDL CALC NORMAL SEE BELOW Normal [facility] Comment on above: Result Comment: <100 mg/dl OPTIMAL 100 - 129 mg/dl NEAR OR ABOVE OPTIMAL 130 - 159 mg/dl BORDERLINE HIGH 160 - 189 mg/dl HIGH >190 mg/dl VERY HIGH Performed By: #### Andi GUY UMICRO #### [facility] [address] [address] [address] Les Bryan Triglyceride [Mass/Vol] 168 mg/dL Critically high <=150 [facility] Comment on above: Performed By: #### Andi GUY UMICRO #### [facility] [address] [place] [address] Dr. Les Bryan VLDL CALC 33.6 mg/dL Normal [facility] Comment on above: Performed By: #### Andi GUY UMICRO #### [facility] [address] [place] [address] Dr. Les Bryan PROF 14(COMP METB)on 022 Albumin [Mass/Vol] 3.9 g/dL Normal 3.4-5.0 [facility] Comment on above: Performed By: #### Andi GUY UMICRO #### [facility] [address] [place] [address] Dr. Les Bryan Albumin/Globulin [Mass ratio] 0.9 {ratio} Normal [facility] Comment on above: Performed By: #### Andi GUY UMICRO #### [facility] [address] [place] [address] Dr. Les Bryan ALP [Catalytic activity/Vol] 137 U/L Critically high 46-116 [facility] Comment on above: Performed By: #### Andi GUY UMICRO #### [facility] [address] [address] [address] Les Bryan ALT [Catalytic activity/Vol] 104 U/L Critically high 14-59 [facility] Comment on above: Performed By: #### RICARDO STEVENSON #### [facility] [address] [place] [address] Dr. Les Bryan Anion gap [Moles/Vol] 13.3 mmol/L Normal [facility] Comment on above: Performed By: #### BARBER STEVENSONRO #### [facility] [address] [place] [address] Dr. Les Bryan AST [Catalytic activity/Vol] 59 U/L Critically high 15-37 [facility] Comment on above: Performed By: #### BARBER STEVENSONRO #### [facility] [address] [place] [address] Dr. Les Bryan Bilirubin [Mass/Vol] 0.3 mg/dL Normal 0.2-1.0 [facility] Comment on above: Performed By: #### RICARDO STEVENSON #### [facility] [address] [place] [address] Dr. Les Bryan Calcium [Mass/Vol] 9.0 mg/dL Normal 8.5-10.1 [facility] Comment on above: Performed By: #### RICARDO STEVENSON #### [facility] [address] [place] [address] Dr. Les Bryan Chloride [Moles/Vol] 104 mmol/L Normal 98-107 [facility] Comment on above: Performed By: #### BARBER STEVENSONRO #### [facility] [address] [place] [address] Dr. Les Bryan CO2 [Moles/Vol] 25.0 mmol/L Normal 21.0-32.0 [facility] Comment on above: Performed By: #### RICARDO STEVENSON #### [facility] [address] [place] [address] Dr. Les Bryan Creatinine [Mass/Vol] 0.70 mg/dL Normal 0.55-1.02 [facility] Comment on above: Performed By: #### BARBER STEVENSONRO #### [facility] [address] [address] [address] Les Bryan EGFR-AF CHINESE 111 mL/min/1.73m2 Normal >=60 [facility] [place] Comment on above: Performed By: #### BARBER STEVENSONRO #### [facility] [address] [place] [address] Dr. Les Bryan EGFR-NON AF CHINESE 92 mL/min/1.73m2 Normal >=60 [facility] Comment on above: Performed By: #### Andi GUY UMICRO #### [facility] [address] [place] [address] Dr. Les Bryan Globulin (S) [Mass/Vol] 4.3 g/dL Normal [facility] Comment on above: Performed By: #### Andi GUY UMICRO #### [facility] [address] [place] [address] Dr. Les Bryan Glucose [Mass/Vol] 104 mg/dL Normal 74-106 [facility] Comment on above: Performed By: #### Andi GUY UMICRO #### [facility] [address] [place] [address] Dr. Les Bryan Potassium [Moles/Vol] 4.3 mmol/L Normal 3.5-5.1 [facility] Comment on above: Performed By: #### Andi GUY UMICRO #### [facility] [address] [place] [address] Dr. Les Bryan Protein [Mass/Vol] 8.2 g/dL Normal 6.4-8.2 [facility] Comment on above: Performed By: #### Andi GUY, UMICRO #### [facility] [address] [place] [address] Dr. Les Bryan Sodium [Moles/Vol] 138 mmol/L Normal 136-145 [facility] Comment on above: Performed By: #### Andi GUY, UMICRO #### [facility] [address] [place] [address] Dr. Les Bryan Urea nitrogen [Mass/Vol] 10.0 mg/dL Normal 7.0-18.0 [facility] Comment on above: Performed By: #### RICARDO STEVENSON #### [facility] [address] [place] [address] Dr. Les Bryan Urea nitrogen/Creatinine [Mass ratio] 14.3 mg/mg Normal [facility] Comment on above: Performed By: #### RICARDO STEVENSON #### [facility] [address] [place] [address] Dr. Les Bryan TSHon 04-17-2022 TSH 4.067 uIU/mL Critically high 0.358-3.740 [facility] Comment on above: Performed By: #### T SH, DBIL, BNP, FT3, T7, LIPID, CMP #### [facility] [address] [place] [address] Dr. Les Bryan INSULINon 04-06-2022 Insulin 34.6 uIU/mL Critically high 2.6-24.9 [facility] Comment on above: Performed By: #### RICARDO STEVENSON #### [facility] [address] [place] [address] Dr. Les Bryan T4 [facility]Pon 04-06-2022 T4 [Mass/Vol] 6.7 ug/dL Normal 4.5-12.0 [facility] Comment on above: Performed By: #### [id number] #### [facility] [address] [place] [address] Dr. Les Bryan BNPon 04-05-2022 Natriuretic peptide B (Bld) [Mass/Vol] 18.0 pg/mL Normal <=450.0 [facility] Comment on above: Performed By: #### RICARDO STEVENSON #### [facility] [address] [place] [address] Dr. Les Bryan CBC AUTO DIFFon 04-05-2022 BASO # 0.1 103/ul Normal 0.0-0.1 [facility] Comment on above: Performed By: #### [id number] #### [facility] [address] [place] [address] Dr. Les Bryan Basophils/100 WBC (Bld) 0.6 % Normal 0.2-2.0 [facility] Comment on above: Performed By: #### [id number] #### [facility] [address] [place] [address] Dr. Les Bryan EO # 0.2 103/ul Normal 0.0-0.7 [facility] Comment on above: Performed By: #### [id number] #### [facility] [address] [place] [address] Dr. Les Bryan Eosinophils/100 WBC (Bld) 1.9 % Normal 0.9-7.0 [facility] Comment on above: Performed By: #### [id number] #### [facility] [address] [place] [address] Dr. Les Bryan Erythrocyte distribution width (RBC) [Ratio] 13.3 % Normal 11.0-15.0 [facility] Comment on above: Performed By: #### [id number] #### [facility] [address] [place] [address] Dr. Les Bryan Hematocrit (Bld) [Volume fraction] 39.1 % Normal 36.0-48.0 [facility] Comment on above: Performed By: #### [id number] #### [facility] [address] [place] [address] Dr. Les Bryan Hemoglobin (Bld) [Mass/Vol] 13.2 g/dL Normal 12.0-16.0 [facility] Comment on above: Performed By: #### [id number] #### [facility] [address] [place] [address] Dr. Les Bryan IG # 0.08 10e3/ul Critically high 0.00-0.03 [facility] Comment on above: Performed By: #### 4 [id number] #### [facility] [address] [place] [address] Dr. Les Bryan IG % 0.8 % Critically high 0.0-0.5 [facility] Comment on above: Performed By: #### [id number] #### [facility] [address] [place] [address] Dr. Les Bryan LYMPH # 3.0 103/ul Normal 1.2-3.8 [facility] Comment on above: Performed By: #### [id number] #### [facility] [address] [place] [address] Dr. Les Bryan Lymphocytes/100 WBC (Bld) 31.4 % Normal 20.5-60.0 [facility] Comment on above: Performed By: #### [id number] #### [facility] [address] [place] [address] Dr. Les Bryan MANUAL DIFF REQ NO Normal [facility] Comment on above: Performed By: #### [id number] #### [facility] [address] [place] [address] Dr. Les Bryan MCH (RBC) [Entitic mass] 30.1 pg Normal 26.7-34.0 [facility] Comment on above: Performed By: #### [id number] #### [facility] [address] [place] [address] Dr. Les Bryan MCHC (RBC) [Mass/Vol] 33.8 g/dL Normal 29.9-35.2 [facility] Comment on above: Performed By: #### 4 [id number] #### [facility] [address] [place] [address] Dr. Les Bryan MCV (RBC) [Entitic vol] 89.1 fL Normal 81.0-99.0 [facility] Comment on above: Performed By: #### [id number] #### [facility] [address] [place] [address] Dr. Les Bryan MONO # 0.6 103/ul Normal 0.3-0.8 [facility] Comment on above: Performed By: #### 4 [id number] #### [facility] [address] [place] [address] Dr. Les Bryan Monocytes/100 WBC (Bld) 6.1 % Normal 1.7-12.0 [facility] Comment on above: Performed By: #### 4 [id number] #### [facility] [address] [place] [address] Dr. Les Bryan NEUT # 5.6 103/ul Normal 1.4-6.5 [facility] Comment on above: Performed By: #### 4 [id number] #### [facility] [address] [place] [address] Dr. Les Bryan Neutrophils/100 WBC (Bld) 59.2 % Normal 43.0-75.0 [facility] Comment on above: Performed By: #### 4 [id number] #### [facility] [address] [place] [address] Dr. Les Bryan Platelet mean volume (Bld) [Entitic vol] 9.0 fL Critically low 9.5-13.5 [facility] Comment on above: Performed By: #### 4 [id number] #### [facility] [address] [place] [address] Dr. Les Bryan PLT 286 103/ul Normal 150-450 [facility] Comment on above: Performed By: #### [id number] #### [facility] [address] [place] [address] Dr. Les Bryan RBC 4.39 106/ul Normal 4.20-5.40 [facility] Comment on above: Performed By: #### [id number] #### [facility] [address] [place] [address] Dr. Les Bryan WBC 9.5 103/ul Normal 4.0-11.0 [facility] Comment on above: Performed By: #### [id number] #### [facility] [address] [place] [address] Dr. Les Bryan FREE T3on 04-05-2022 FREE T3 2.73 pg/mlL Normal 2.18-3.98 [facility] Comment on above: Performed By: #### RICARDO STEVENSON #### [facility] [address] [place] [address] Dr. Les Bryan FREE THYROXINE INDEX T7on FTI 2.08 Normal 1.30-4.50 [facility] Comment on above: Performed By: #### RICARDO STEVENSON #### [facility] [address] [address] [address] Les Bryan T3U 31.0 % Normal 30.0-39.0 [facility] Comment on above: Performed By: #### BARBER STEVENSONRO #### [facility] [address] [place] [address] Dr. Les Bryan T4 [Mass/Vol] 6.70 ug/dL Normal 4.80-13.90 [facility] Comment on above: Result Comment: T4 t esting performed by [facility] Performed By: #### RICARDO STEVENSON #### [facility] [address] [place] [address] Dr. Les Bryan GLYCOHEMOGLOBIN A1Con 2021 ADA RECOMMENDATION SEE BELOW Normal [facility] Comment on above: Result Comment: ADA RECOMMENDED LIMIT 4.0 - 6.0 ADA THERAPEUTIC TARGET < 7.0 ACTION SUGGESTED > 7.0 Performed By: #### [id number] #### [facility] [address] [place] [address] Dr. Les Bryan Glucose [Mass/Vol] 120 mg/dL Normal [facility] Comment on above: Performed By: #### 4 [id number] #### [facility] [address] [place] [address] Dr. Les Bryan HbA1c (Bld) [Mass fraction] 5.8 % Normal 4.5-6.2 [facility] Comment on above: Performed By: #### 4 [id number] #### [facility] [address] [place] [address] Dr. Les Bryan IRONon 04-05-2022 Iron [Mass/Vol] 105.0 ug/dL Normal 50.0-170.0 [facility] Comment on above: Performed By: #### RICARDO STEVENSON #### [facility] [address] [place] [address] Dr. Les Bryan LIPID PROFILEon 04-05-2022 CHOL-HDL RATIO NORM SEE BELOW Normal [facility] Comment on above: Result Comment: 3.3 - 4.4 LOW RISK 4.4 - 7.1 AVERAGE RISK 7.1 - 11.0 MODERATE RISK >11.0 HIGH RISK Performed By: #### RICARDO STEVENSON #### [facility] [address] [place] [address] Dr. Les Bryan Cholesterol [Mass/Vol] 217 mg/dL Critically high <=200 [facility] Comment on above: Performed By: #### RICARDO STEVENSON #### [facility] [address] [place] [address] Dr. Les Bryan Cholesterol in HDL [Mass/Vol] 49 mg/dL Normal 40-60 [facility] Comment on above: Performed By: #### RICARDO STEVENSON #### [facility] [address] [place] [address] Dr. Les Bryan Cholesterol in LDL [Mass/Vol] 128.2 mg/dL Normal [facility] Comment on above: Performed By: #### RICARDO STEVENSON #### [facility] [address] [place] [address] Dr. Les Bryan Cholesterol.total/Ch olesterol in HDL [Mass ratio] 4.4 {ratio} Normal [facility] Comment on above: Performed By: #### RICARDO STEVENSON #### [facility] [address] [place] [address] Dr. Les Bryan HDL NORMAL > or = 60 mg/dl - LOW CARDIOVASCULAR RISK <40 mg/dl - HIGH CARDIOVASCULAR RISK Normal [facility] Comment on above: Performed By: #### BARBER STEVENSONRO #### [facility] [address] [place] [address] Dr. Les Bryan LDL CALC NORMAL SEE BELOW Normal [facility] Comment on above: Result Comment: <100 mg/dl OPTIMAL 100 - 129 mg/dl NEAR OR ABOVE OPTIMAL 130 - 159 mg/dl BORDERLINE HIGH 160 - 189 mg/dl HIGH >190 mg/dl VERY HIGH Performed By: #### BARBER STEVENSONRO #### [facility] [address] [place] [address] Dr. Les Bryan Triglyceride [Mass/Vol] 199 mg/dL Critically high <=150 [facility] Comment on above: Performed By: #### RICARDO STEVENSON #### [facility] [address] [place] [address] Dr. Les Bryan VLDL CALC 39.8 mg/dL Normal [facility] Comment on above: Performed By: #### RICARDO STEVENSON #### [facility] [address] [place] [address] Dr. Les Bryan PROF 14(COMP METB)on 022 Albumin [Mass/Vol] 3.8 g/dL Normal 3.4-5.0 [facility] Comment on above: Performed By: #### RICARDO STEVENSON #### [facility] [address] [place] [address] Dr. Les Bryan Albumin/Globulin [Mass ratio] 0.9 {ratio} Normal [facility] Comment on above: Performed By: #### RICARDO STEVENSON #### [facility] [address] [place] [address] Dr. Les Bryan ALP [Catalytic activity/Vol] 122 U/L Critically high 46-116 [facility] Comment on above: Performed By: #### RICARDO STEVENSON #### [facility] [address] [place] [address] Dr. Les Bryan ALT [Catalytic activity/Vol] 90 U/L Critically high 14-59 [facility] Comment on above: Performed By: #### RICARDO STEVENSON #### [facility] [address] [place] [address] Dr. Les Bryan Anion gap [Moles/Vol] 13.5 mmol/L Normal [facility] Comment on above: Performed By: #### RICARDO STEVENSON #### [facility] [address] [place] [address] Dr. Les Bryan AST [Catalytic activity/Vol] 63 U/L Critically high 15-37 [facility] Comment on above: Performed By: #### RICARDO STEVENSON #### [facility] [address] [place] [address] Dr. Les Bryan Bilirubin [Mass/Vol] 0.4 mg/dL Normal 0.2-1.0 [facility] Comment on above: Performed By: #### BARBER STEVENSONRO #### [facility] [address] [place] [address] Dr. Les Bryan Calcium [Mass/Vol] 9.3 mg/dL Normal 8.5-10.1 [facility] Comment on above: Performed By: #### Andi GUY UMICRO #### [facility] [address] [address] [address] Les Bryan Chloride [Moles/Vol] 103 mmol/L Normal 98-107 [facility] Comment on above: Performed By: #### Andi GUY UMICRO #### [facility] [address] [place] [address] Dr. Les Bryan CO2 [Moles/Vol] 24.6 mmol/L Normal 21.0-32.0 [facility] Comment on above: Performed By: #### Andi GUY UMICRO #### [facility] [address] [place] [address] Dr. Les Bryan Creatinine [Mass/Vol] 0.70 mg/dL Normal 0.55-1.02 [facility] Comment on above: Performed By: #### Andi GUY UMICRO #### [facility] [address] [place] [address] Dr. Les Bryan EGFR-AF CHINESE >60 Normal >=60 [facility] Comment on above: Performed By: #### Andi GUY UMICRO #### [facility] [address] [place] [address] Dr. Les Bryan EGFR-NON AF CHINESE >60 Normal >=60 [facility] Comment on above: Performed By: #### Andi GUY UMICRO #### [facility] [address] [place] [address] Dr. Les Bryan Globulin (S) [Mass/Vol] 4.1 g/dL Normal [facility] Comment on above: Performed By: #### Andi GUY UMICRO #### [facility] [address] [place] [address] Dr. Les Bryan Glucose [Mass/Vol] 110 mg/dL Critically high 74-106 [facility] Comment on above: Performed By: #### E LOKESHR, UMICRO #### [facility] [address] [place] [address] Dr. Les Bryan Potassium [Moles/Vol] 4.1 mmol/L Normal 3.5-5.1 [facility] Comment on above: Performed By: #### E RUR, UMICRO #### [facility] [address] [place] [address] Dr. Les Bryan Protein [Mass/Vol] 7.9 g/dL Normal 6.4-8.2 [facility] Comment on above: Performed By: #### E BROOKS, UMICRO #### [facility] [address] [place] [address] Dr. Les Bryan Sodium [Moles/Vol] 137 mmol/L Normal 136-145 [facility] Comment on above: Performed By: #### E BROOKS, UMICRO #### [facility] [address] [place] [address] Dr. Les Bryan Urea nitrogen [Mass/Vol] 9.0 mg/dL Normal 7.0-18.0 [facility] Comment on above: Performed By: #### E BROOKS, UMICRO #### [facility] [address] [place] [address] Dr. Les Bryan Urea nitrogen/Creatinine [Mass ratio] 12.9 mg/mg Normal [facility] Comment on above: Performed By: #### E BROOKS, UMICRO #### [facility] [address] [place] [address] Dr. Les Bryan TSHon 04-05-2022 TSH 3.572 uIU/mL Normal 0.358-3.740 [facility] Comment on above: Performed By: #### E LOKESHR, UMICRO #### [facility] [address] [place] [address] Dr. Les Bryan TSH RANGE SEE BELOW Normal [facility] Comment on above: Result Comment: <0.3 4 UIU/ml HYPERTHYROID 0.34-5.60 UIU/ml EUTHYROID >5.60 UIU/ml HYPOTHYROID Performed By: #### E RICARDO GUY #### [facility] [address] [place] [address] Dr. Les Bryan XR KUB 1 VIEWon [...] AMANDA CASSIDY Date: 2022-02-27 15:05 Normal [facility] AMYLASEon 02-25-2022 Amylase [Catalytic activity/Vol] 34 U/L Normal 25-115 [facility] Comment on above: Performed By: #### [id number] #### [facility] [address] [place] [address] Dr. Les Bryan CBC AUTO DIFFon 02-25-2022 BASO # 0.0 103/ul Normal 0.0-0.1 [facility] Comment on above: Performed By: #### C BC #### [facility] [address] [place] [address] Dr. Les Bryan Basophils/100 WBC (Bld) 0.4 % Normal 0.2-2.0 [facility] Comment on above: Performed By: #### C BC #### [facility] [address] [place] [address] Dr. Les Bryan EO # 0.3 103/ul Normal 0.0-0.7 [facility] Comment on above: Performed By: #### C BC #### [facility] [address] [address] [address] Les Bryan Eosinophils/100 WBC (Bld) 3.6 % Normal 0.9-7.0 [facility] Comment on above: Performed By: #### C BC #### [facility] [address] [place] [address] Dr. Les Bryan Erythrocyte distribution width (RBC) [Ratio] 13.1 % Normal 11.0-15.0 [facility] Comment on above: Performed By: #### C BC #### [facility] [address] [place] [address] Dr. Les Bryan Hematocrit (Bld) [Volume fraction] 40.6 % Normal 36.0-48.0 [facility] Comment on above: Performed By: #### C BC #### [facility] [address] [place] [address] Dr. Les Bryan Hemoglobin (Bld) [Mass/Vol] 13.3 g/dL Normal 12.0-16.0 [facility] Comment on above: Performed By: #### C BC #### [facility] [address] [place] [address] Dr. Les Bryan IG # 0.06 10e3/ul Critically high 0.00-0.03 [facility] Comment on above: Performed By: #### C BC #### [facility] [address] [place] [address] Dr. Les Bryan IG % 0.6 % Critically high 0.0-0.5 [facility] Comment on above: Performed By: #### C BC #### [facility] [address] [place] [address] Dr. Les Bryan LYMPH # 3.6 103/ul Normal 1.2-3.8 [facility] Comment on above: Performed By: #### C BC #### [facility] [address] [place] [address] Dr. Les Bryan Lymphocytes/100 WBC (Bld) 38.2 % Normal 20.5-60.0 [facility] Comment on above: Performed By: #### C BC #### [facility] [address] [place] [address] Dr. Les Bryan MANUAL DIFF REQ NO Normal [facility] Comment on above: Performed By: #### C BC #### [facility] [address] [place] [address] Dr. Les Bryan MCH (RBC) [Entitic mass] 29.7 pg Normal 26.7-34.0 [facility] Comment on above: Performed By: #### C BC #### [facility] [address] [place] [address] Dr. Les Bryan MCHC (RBC) [Mass/Vol] 32.8 g/dL Normal 29.9-35.2 [facility] Comment on above: Performed By: #### C BC #### [facility] [address] [place] [address] Dr. Les Bryan MCV (RBC) [Entitic vol] 90.6 fL Normal 81.0-99.0 [facility] Comment on above: Performed By: #### C BC #### [facility] [address] [place] [address] Dr. Les Bryan MONO # 0.5 103/ul Normal 0.3-0.8 [facility] Comment on above: Performed By: #### C BC #### [facility] [address] [place] [address] Dr. Les Bryan Monocytes/100 WBC (Bld) 5.4 % Normal 1.7-12.0 [facility] Comment on above: Performed By: #### C BC #### [facility] [address] [place] [address] Dr. Les Bryan NEUT # 4.9 103/ul Normal 1.4-6.5 [facility] Comment on above: Performed By: #### C BC #### [facility] [address] [place] [address] Dr. Les Bryan Neutrophils/100 WBC (Bld) 51.8 % Normal 43.0-75.0 [facility] Comment on above: Performed By: #### C BC #### [facility] [address] [place] [address] Dr. Les Bryan Platelet mean volume (Bld) [Entitic vol] 9.2 fL Critically low 9.5-13.5 [facility] Comment on above: Performed By: #### C BC #### [facility] [address] [place] [address] Dr. Les Bryan PLT 335 103/ul Normal 150-450 [facility] Comment on above: Performed By: #### C BC #### [facility] [address] [place] [address] Dr. Les Bryan RBC 4.48 106/ul Normal 4.20-5.40 [facility] Comment on above: Performed By: #### C BC #### [facility] [address] [place] [address] Dr. Les Bryan WBC 9.4 103/ul Normal 4.0-11.0 [facility] Comment on above: Performed By: #### C BC #### [facility] [address] [place] [address] ABD/PELVIS WO CONon [...] by: IWONA BRITT Date: 2022-02-25 19:05 Normal [facility] ER URINE PROFILEon 2 Bilirubin Ql (U) Negative Normal NEGATIVE [facility] Comment on above: Performed By: #### Andi GUY UMICRO #### [facility] [address] [place] [address] Dr. Les Bryan Clarity (U) CLEAR Normal CLEAR [facility] Comment on above: Performed By: #### Andi GUY UMICRO #### [facility] [address] [address] [address] Les Bryan Color (U) YELLOW Normal YELLOW [facility] Comment on above: Performed By: #### Andi GUY UMICRO #### [facility] [address] [address] [address] Les Bryan ERUCHANDLERD A micrscopic examination will be performed if indicated. Normal [facility] Comment on above: Performed By: #### Andi GUY UMICRO #### [facility] [address] [address] [address] Les Bryan Glucose Ql (U) Negative Normal NEGATIVE [facility] Comment on above: Performed By: #### E RUR UMICRO #### [facility] [address] [place] [address] Dr. Les Bryan Hemoglobin Ql (U) LARGE Abnormal NEGATIVE [facility] Comment on above: Performed By: #### E RUR, UMICRO #### [facility] [address] [place] [address] Dr. Les Bryan Ketones Ql (U) Negative Normal NEGATIVE [facility] Comment on above: Performed By: #### BARBER STEVENSONRO #### [facility] [address] [place] [address] Dr. Les Bryan LEUKOCYTES TRACE Abnormal NEGATIVE [facility] Comment on above: Performed By: #### BARBER STEVENSONRO #### [facility] [facility] [address] [place] [address] Dr. Les Bryan Nitrite Ql (U) Negative Normal NEGATIVE [facility] Comment on above: Performed By: #### BARBER STEVENSONRO #### [facility] [address] [place] [address] Dr. Les Bryan pH (U) 7.0 [pH] Normal 5-9 [facility] Comment on above: Performed By: #### BARBER STEVENSONRO #### [facility] [address] [place] [address] Dr. Les Bryan Protein (U) [Mass/Vol] 30 mg/dL Abnormal NEGATIVE/ TRACE [facility] Comment on above: Performed By: #### BARBER STEVENSONRO #### [facility] [address] [place] [address] Dr. Les Bryan SPEC GRAVITY 1.025 Normal 1.005-<=1.025 [facility] Comment on above: Performed By: #### BARBER STEVENSONRO #### [facility] [address] [place] [address] Dr. Les Bryan UR MICRO IND INDICATED Normal [facility] Comment on above: Performed By: #### BARBER STEVENSONRO #### [facility] [address] [place] [address] Dr. Les Bryan Urobilinogen Qn (U) 0.2 {Racquel'U}/dL Normal 0.2 - 1. 0 [facility] Comment on above: Performed By: #### RICARDO STEVENSON #### [facility] [address] [place] [address] Dr. Les Bryan LIPASEon 02-25-2022 Lipase [Catalytic activity/Vol] 82.0 U/L Normal 73.0-393.0 [facility] Comment on above: Performed By: #### [id number] #### [facility] [address] [place] [address] Dr. Les Bryan PROF 14(COMP METB)on Albumin [Mass/Vol] 3.7 g/dL Normal 3.4-5.0 [facility] Comment on above: Performed By: #### [id number] #### [facility] [address] [place] [address] Dr. Les Bryan Albumin/Globulin [Mass ratio] 0.9 {ratio} Normal [facility] Comment on above: Performed By: #### [id number] #### [facility] [address] [place] [address] Dr. Les Bryan ALP [Catalytic activity/Vol] 129 U/L Critically high 46-116 [facility] Comment on above: Performed By: #### [id number] #### [facility] [address] [place] [address] Dr. Les Bryan ALT [Catalytic activity/Vol] 86 U/L Critically high 14-59 [facility] Comment on above: Performed By: #### [id number] #### [facility] [address] [place] [address] Dr. Les Bryan Anion gap [Moles/Vol] 15.3 mmol/L Normal [facility] Comment on above: Performed By: #### [id number] #### [facility] [address] [place] [address] Dr. Les Bryan AST [Catalytic activity/Vol] 51 U/L Critically high 15-37 [facility] Comment on above: Performed By: #### [id number] #### [facility] [address] [place] [address] Dr. Les Bryan Bilirubin [Mass/Vol] 0.2 mg/dL Normal 0.2-1.0 [facility] Comment on above: Performed By: #### [id number] #### [facility] [address] [address] [address] Les Bryan Calcium [Mass/Vol] 8.4 mg/dL Critically low 8.5-10.1 [facility] Comment on above: Performed By: #### [id number] #### [facility] [address] [place] [address] Dr. Les Bryan Chloride [Moles/Vol] 103 mmol/L Normal 98-107 [facility] Comment on above: Performed By: #### [id number] #### [facility] [address] [place] [address] Dr. Les Bryan CO2 [Moles/Vol] 26.2 mmol/L Normal 21.0-32.0 [facility] Comment on above: Performed By: #### [id number] #### [facility] [address] [place] [address] Dr. Les Bryan Creatinine [Mass/Vol] 0.72 mg/dL Normal 0.55-1.02 [facility] Comment on above: Performed By: #### [id number] #### [facility] [address] [place] [address] Dr. Les Bryan EGFR-AF CHINESE >60 Normal >=60 [facility] Comment on above: Performed By: #### [id number] #### [facility] [address] [place] [address] Dr. Les Bryan EGFR-NON AF CHINESE >60 Normal >=60 [facility] Comment on above: Performed By: #### [id number] #### [facility] [address] [place] [address] Dr. Les Bryan Globulin (S) [Mass/Vol] 4.2 g/dL Normal [facility] Comment on above: Performed By: #### [id number] #### [facility] [address] [place] [address] Dr. Les Bryan Glucose [Mass/Vol] 121 mg/dL Critically high 74-106 [facility] Comment on above: Performed By: #### [id number] #### [facility] [address] [place] [address] Dr. Les Bryan Potassium [Moles/Vol] 3.5 mmol/L Normal 3.5-5.1 [facility] Comment on above: Performed By: #### [id number] #### [facility] [address] [place] [address] Dr. Les Bryan Protein [Mass/Vol] 7.9 g/dL Normal 6.1-8.2 [facility] Comment on above: Performed By: #### [id number] #### [facility] [address] [place] [address] Dr. Les Bryan Sodium [Moles/Vol] 141 mmol/L Normal 136-145 [facility] Comment on above: Performed By: #### [id number] #### [facility] [address] [place] [address] Dr. Les Bryan Urea nitrogen [Mass/Vol] 14.0 mg/dL Normal 7.0-18.0 [facility] Comment on above: Performed By: #### [id number] #### [facility] [address] [place] [address] Dr. Les Bryan Urea nitrogen/Creatinine [Mass ratio] 19.4 mg/mg Normal [facility] Comment on above: Performed By: #### [id number] #### [facility] [address] [place] [address] Dr. Les Bryan URINE MICROSCOPIC ONLYon BACTERIA TRACE Abnormal NONE SEEN [facility] Comment on above: Performed By: #### Andi GUY UMICRO #### [facility] [address] [place] [address] Dr. Les Bryan Bacteria identified Cx Nom (U) NOT INDICATED Normal [facility] Comment on above: Performed By: #### Andi GUY UMICRO #### [facility] [address] [place] [address] Dr. Les Bryan CAST NONE SEEN Normal NONE SEEN [facility] Comment on above: Performed By: #### Andi GUY UMICRO #### [facility] [address] [address] [address] Les Bryan Crystals LM Nom (Urine sed) NONE SEEN Normal NONE SEEN [facility] Comment on above: Performed By: #### RICARDO STEVENSON #### [facility] [address] [address] [address] Les Bryan Epithelial cells LM Ql (Urine sed) MODERATE Abnormal NONE SEEN /RARE [facility] Comment on above: Performed By: #### RICARDO STEVENSON #### [facility] [address] [place] [address] Dr. Les Bryan MUCOUS NONE SEEN Normal NONE SEEN [facility] Comment on above: Performed By: #### RICARDO STEVENSON #### [facility] [address] [place] [address] Dr. Les Bryan RBC 20-50 Abnormal 0-2 [facility] Comment on above: Result Comment: cren ated RBCs Performed By: #### RICARDO STEVENSON #### [facility] [address] [place] [address] Dr. Les Bryan WBC 2-5 Abnormal NONE SEEN [facility] Comment on above: Performed By: #### RICARDO STEVENSON #### [facility] [address] [place] [address] Dr. Les Bryan Vital Signs Date Time Vital Sign Value Performing Clinician Facility 12-02-2024 14:40-0500 Blood Pressure Location Jl FREDERICK [facility] [place] 12-02-2024 14:40-0500 Diastolic blood pressure 106 mm[Hg] Jl FREDERICK [facility] [place] 12-02-2024 14:40-0500 Heart rate 72 /min Jl FREDERICK [facility] [place] 12-02-2024 14:40-0500 Respiratory rate 16 /min Jl FREDERICK [facility] [place] 12-02-2024 14:40-0500 Systolic blood pressure 142 mm[Hg] Jl FREDERICK [facility] [place] 09-13-2023 10:30-0500 Body height 162.56 cm Shae Love Other [facility] Other 09-13-2023 10:30-0500 Body mass index (BMI) [Ratio] 23.14 kg/m2 Shae Love Other [facility] 09-13-2023 10:30-0500 Body temperature 98.4 [degF] Shae Love Other [facility] Other 09-13-2023 10:30-0500 Body weight 61.15 kg Shae Love Other [facility] Other 09-13-2023 10:30-0500 Respiratory rate 18 /min Shae Love Other [facility] Other 09-13-2023 10:30-0500 SaO2% (BldA) [Mass fraction] 99 % Shae Love Other [facility] Other 04-21-2022 09:07-0400 Blood Pressure Location Jl FREDERICK [facility] [place] 04-21-2022 09:07-0400 Diastolic blood pressure 86 mm[Hg] Jl BRIDGESL [facility] [place] 04-21-2022 09:07-0400 Heart rate 92 /min Jl BRIDGESL [facility] [place] 04-21-2022 09:07-0400 Respiratory rate 16 /min Jl YOLY [facility] [place] 04-21-2022 09:07-0400 Systolic blood pressure 127 mm[Hg] Jl FREDERICK [facility] [place] Encounters Encounter Date Encounter Type Care Provider Facility Start: 12-02-2024 End: 12-02-2024 ambulatory Jl FREDERICK Facility: [facility] Start: 12-02-2024 End: 12-02-2024 Patient encounter procedure Jl FREDERICK [facility] [place] Start: 06-12-2024 End: 06-12-2024 Emergency department patient visit [facility] Start: 09-13-2023 Office outpatient ne w 20 minutes Shae Love [facility] Start: 09-13-2023 End: 09-13-2023 ambulatory Shae Love [facility] [employer] Other Start: 09-13-2023 End: 09-13-2023 Patient encounter procedure [employer] Shae Love Work Phone: [facility] Work Phone: Start: 10-09-2022 [...] Jl FREDERICK [facility] [place] Start: 04-20-[address] ANGELICA DE Facility :[facility] Start: 04-17-2022 End: 04-18-[address] ANGELICA DE Facility:[facility] Start: 04-05-2022 End: 04-06-[address] ANGELICA DE Facility:[facility] Start: 02-27-2022 End: 02-28-[address] ANGELICA DE Facility:[facility] Start: 02-25-2022 End: 02-25-2022 ambulatory EMILY MCDERMOTT Facility:[facility] Procedures Date Procedure Procedure Detail Performing Clinician Start: 09-13-2023 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 on 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 1979 Unknown [id number] 2.16.84 [id number] 1979 Unknown [id number] 2.16.84 [id number] 1979 Unknown [id number] 2.16.84 [id number] 1979 Unknown [id number] 2.16.84 [id number] 1979 Unknown [id number] 2.16.84 [id number] 1979 Unknown [id number] 2.16.84 [id number] 1979 Unknown [id number] 2.16.8 [id number] 1979 Unknown [id number] 2.16.8 [id number] 1959 Self-pay 1960 Unknown [id number] Unknown [id number] 2.16.8 [id number] Social History Date Type Detail Facility Start: 04-21-2022 Tobacco smoking status Ex-smoker (fi nding) [facility] Tobacco smoking status Never [facility] Sex Assigned At Female [facility] Start: 1980 Sex Assigned At Female [facility] Start: 12-02-2024 Tobacco smoking status Heavy t obacco smoker (finding) [facility] Functional Status Date Assessment Result Facility 12-02-2024 Functional Status N/A [facility] 04-21-2022 Functional Status N/A [facility] [place] Clinical Note [...] Mother. Primary malignant neoplasm of bladder: Father. [facility] Comment on above: Result Comment: [...] understanding and is agreeable to treatment plan [facility] Other Evaluation + Plan note Note Date & Type Note Facility Evaluation + Plan note Future Appointments Appointment Date:05/03/2022 03:00:00 PM Scheduled Provider:Jl FREDERICK MD Location:[facility] Appointment Type:GS Procedure 30 [facility] [place] Evaluation + Plan note Note Date & Type Note Facility Evaluation + Plan note Future Appointments Appointment Date:05/12/2022 03:40:00 PM Scheduled Provider:Jl FREDERICK MD Location:[facility] Appointment Type:GS Post Op 15 [facility] [place] Evaluation note Note Date & Type Note Facility Evaluation note No assessment information availa [facility] Work Phone: History general Narrative - Reported Note Date & Type Note Facility History general Narrative - Reported Type Medical History Anxiety disorder Medical History chronic depression Medical History thyriod Surgical History LEAP [facility] Other Hospital course Narrative Note Date & Type Note Facility Hospital course Narrative No data available for this section [facility] [place] [facility] Discharge instructions Note Date & Type Note Facility Hospital Discharge instructions No data available for this section [facility] [place] Progress note Note Date & Type Note Facility Progress note No data available for this section [facility] [place] Summary Purpose Family History No Family History [...] DATE CREATED AUTHOR AUTHOR'S ORGANIZ ATION 12/07/2023 [facility] DATE CREATED AUTHOR AUTHOR'S ORGANIZ ATION 06/15/2024 [facility] DATE CREATED AUTHOR AUTHOR'S ORGANIZ ATION 12/04/2024 [facility] REASON FOR VISIT (unrecogniz ed section [...] BE BASED ON THE PRIMARY CLINICAL RECORDS. [employer] provides no warranty or guarantee of the accuracy or completeness of information in this document.
== END 2025-01-01 12:34 | disposition home or self-care (01) ==
LOC: MRI 12:33
PROVIDERS: PCP Family Medicine; Visit Provider Podiatrist Foot & Ankle Surgery
DX: R22.42 Localized swelling, mass and lump, left lower limb (principal); L03.116 Cellulitis of left lower limb
CPT/HCPCS: 73721

== ENCOUNTER 2025-01-07 15:16 | Outpatient (OUT) | payer BC, SELFPAY ==
--- OUTSIDE RECORDS SUMMARY | 2025-01-07 15:41 | XMS_ITS | CCD ---
Author Organization [facility] CliniSymt Care Team Providers Care Digital Content Specialist Name Role Phone Angelica De Primary Care [...] Shae Love Unavailable RUBY Love Attending Provider hSae Love Attending Unavailable Shae Love Admitting Unavailable Jl FREDERICK Attending Unavailable Allergies Allergy Classification Reported Allergen(s) Allergy Type Date of Onset Reaction(s) Facility (7 sources) Latex; Translations: [Latex] Drug allergy 3 Eruption of skin (disorder), rash [facility] [place] (6 sources) Sulfamethoxazole / Trimethoprim; Translations: [sulfamethoxazole-tr imethoprim] Drug Allergy Weal (disorder), hives [facility] (2 sources) natural latex rubber Drug allergy (disorder) [facility] (2 sources) Sulfamethoxazole / Trimethoprim Drug Allergy [facility] (1 source) Sulfamethoxazole Drug Allergy [address] [facility] (1 source) Trimethoprim Drug Allergy [address] [facility] Medications Current Medications Medication Drug [...] Drug Class(es) Dates Sig (Normalized) Sig (Original) [place] (1 source) [place] Not- Taking Problems Active Problems Problem Classification [...] physician. Your Care Team Attending Physician - lJ FREDERICK MD Primary Care Physician - Angelica [...] choosing us for your care. Normal [facility] Drugs of Abuse, S/Jm 2023 Amphetamines, S/P Negative Normal Cutoff 20 [facility] Comment on above: Performed By: #### A DAU9S #### [facility] [address] [place] [address] Lumber Sorter: Trey Carroll MD #### CP, MARITZA, MG #### [facility] [address] [place] [address] Lumber Sorter: Belia Manjarrez MD Barbiturates, S/P Negative Normal Cutoff 50 [facility] Comment on above: Performed By: #### A DAU9S #### [facility] [address] [place] [address] Lumber Sorter: Trey Carroll MD #### CP, CDP, MG #### [facility] [address] [place] [address] Lumber Sorter: Belia Manjarrez MD Benzodiazepines, S/P Negative Normal Cutoff [address] [facility] Comment on above: Performed By: #### A DAU9S #### [facility] [address] [place] [address] Lumber Sorter: Trey Carroll MD #### CP, CDP, MG #### [facility] [address] [place], [place] [id number] Lumber Sorter: Belia Manjarrez MD Buprenorphine, S/P Negative Normal Cutoff 1 [facility] Comment on above: Performed By: #### A DAU9S #### [facility] [address] [place] [address] Lumber Sorter: Trey Carroll MD #### CP, CDP, MG #### [facility] [address] [place] [address] Lumber Sorter: Belia Manjarrez MD Cocaine, Serum/Plas Negative Normal Cutoff 20 [facility] Comment on above: Performed By: #### A DAU9S #### [facility] [address] [place] [address] Lumber Sorter: Trey Carroll MD #### CP, CDP, MG #### [facility] [address] [place] [address] Lumber Sorter: Belia Manjarrez MD Comment See Note Normal [facility] Comment on above: Result Comment: [...] developed and its performance characteristics determined by [facility]. It has not been cleared or approved by the [place] Food and Drug Administration. This test was performed in a CLIA certified laboratory and is intended for clinical purposes. Performed By: [facility] [address] [place] [id number] Corporate Buyer: Trace Vazquez MD, PhD CLIA Number: [id number] Performed By: #### A DAU9S #### [address] [address] Lumber Sorter: Trey Carroll MD #### CP, CDP, MG #### [facility] [address] [place] [address] Lumber Sorter: Belia Manjarrez MD Methadone, S/P Negative Normal Cutoff 25 [facility] Comment on above: Performed By: #### A DAU9S #### [facility] [address] [place] [address] Lumber Sorter: Trey Carroll MD #### CP, CDP, MG #### [facility] [address] [place] [address] Lumber Sorter: Belia Manjarrez MD Methamphetamine,S/P Negative Normal Cutoff 20 [facility] Comment on above: Performed By: #### A DAU9S #### [facility] [address] [place] [address] Lumber Sorter: Trey Carroll MD #### CP, CDP, MG #### [facility] [address] [place], [place] [id number] Lumber Sorter: Belia Manjarrez MD Opiates, Serum/Plas Negative Normal Cutoff 20 [facility] Comment on above: Performed By: #### A DAU9S #### [facility] [address] [place] [address] Lumber Sorter: Trey Carroll MD #### CP, CDP, MG #### [facility] [address] [place] [address] Lumber Sorter: Belia Manjarrez MD Oxycodone, S/P Negative Normal Cutoff 20 [facility] Comment on above: Performed By: #### A DAU9S #### [facility] [address] [place] [address] Lumber Sorter: Trey Carroll MD #### CP, CDP, MG #### [facility] [address] [place], [place] [id number] Lumber Sorter: Belia Manjarrez MD Phencyclidine, S/P Negative Normal Cutoff 10 [facility] Comment on above: Performed By: #### A DAU9S #### [facility] [address] [place] [address] Lumber Sorter: Trey Carroll MD #### CP, CDP, MG #### [facility] [address] [place], [place] [id number] Lumber Sorter: Belia Manjarrez MD THC, Serum/Plasma Negative Normal Cutoff 20 [facility] Comment on above: Performed By: #### A DAU9S #### [facility] [address] [place] [address] Lumber Sorter: Trey Carroll MD #### CP, CDP, MG #### [facility] [address] [place] [address] Lumber Sorter: Belia Manjarrez MD CBC with Diffon 06-12-2024 Abs. Basophil 0.04 k/uL Normal 0.00-0.20 [facility] Comment on above: Performed By: #### A DAU9S #### [facility] [address] [place] [address] Lumber Sorter: Trey Carroll MD #### HEATHER, CDP, MG #### [facility] [address] [place] [address] [place] [address] Lumber Sorter: Belia Manjarrez MD Abs.Imm.Granulocyte 0.06 k/uL Normal 0.00-0.30 [facility] Comment on above: Performed By: #### A DAU9S #### [facility] [address] [place] [address] Lumber Sorter: Trey Carroll MD #### HEATHER CDP, MG #### [address] [place] [address] Lumber Sorter: Belia Manjarrez MD Abs.Neutrophil (Seg) 6.02 k/uL Normal 1.50-8.[address] [facility] Comment on above: Performed By: #### A DAU9S #### [facility] [address] [place] [address] Lumber Sorter: Trey Carroll MD #### CP, CDP, MG #### [facility] [address] [place] [address] Lumber Sorter: Belia Manjarrez MD Basophils/100 WBC (Bld) 0 % Normal 0-2 [facility] Comment on above: Performed By: #### A DAU9S #### [facility] [address] [place] [address] Lumber Sorter: Trey Carroll MD #### CP, CDP, MG #### [facility] [address] [place] [address] [place] [address] Lumber Sorter: Belia Manjarrez MD Eosinophils (Bld) [#/Vol] 0.16 10*3/uL Normal 0.00-0.44 [facility] Comment on above: Performed By: #### A DAU9S #### [facility] [address] [place] [address] Lumber Sorter: Trey Carroll MD #### HEATHER, CDP, MG #### [address] [place] [address] Lumber Sorter: Belia Manjarrez MD Eosinophils/100 WBC (Bld) 2 % Normal 1-4 [facility] Comment on above: Performed By: #### A DAU9S #### [facility] [address] [place] [address] Lumber Sorter: Trey Carroll MD #### HEATHER CDP, MG #### [address] [place] [address] Lumber Sorter: Belia Manjarrez MD Erythrocyte distribution width (RBC) [Ratio] 13.3 % Normal 11.8-14.4 [facility] Comment on above: Performed By: #### A DAU9S #### [facility] [address] [place] [address] Lumber Sorter: Trey Carroll MD #### CP, CDP, MG #### [address] [place] [address] Lumber Sorter: Belia Manjarrez MD Hematocrit (Bld) [Volume fraction] 41.0 % Normal 36.3-47.1 [facility] Comment on above: Performed By: #### A DAU9S #### [facility] [address] [place] [address] Lumber Sorter: Trey Carroll MD #### CP, CDP, MG #### [facility] [address] [place] [address] Lumber Sorter: Belia Manjarrez MD Hemoglobin (Bld) [Mass/Vol] 14.1 g/dL Normal 11.9-15.1 [facility] Comment on above: Performed By: #### A DAU9S #### [facility] [address] [place] [address] Lumber Sorter: Trey Carroll MD #### CP, CDP, MG #### [facility] [address] [place] [address] Lumber Sorter: Belia Manjarrez MD Immature granulocytes/100 WBC (Bld) 1 % High 0 [facility] Comment on above: Performed By: #### A DAU9S #### [facility] [address] [place] [address] Lumber Sorter: Trey Carroll MD #### HEATHER, CDP, MG #### [facility] [address] [place] [address] [place] [address] Lumber Sorter: Belia Manjarrez MD Lymphocytes (Bld) [#/Vol] 3.39 10*3/uL Normal 1.10-3.70 [facility] Comment on above: Performed By: #### A DAU9S #### [facility] [address] [place] [address] Lumber Sorter: Trey Carroll MD #### CP, CDP, MG #### [facility] [address] [place] [address] Lumber Sorter: Belia Manjarrez MD Lymphocytes/100 WBC (Bld) 33 % Normal 24-43 [facility] Comment on above: Performed By: #### A DAU9S #### [facility] [address] [place] [address] Lumber Sorter: Trey Carroll MD #### CP, CDP, MG #### [facility] [address] [place] [address] Lumber Sorter: Belia Manjarrez MD MCH (RBC) [Entitic mass] 30.9 pg Normal 25.2-33.5 [facility] Comment on above: Performed By: #### A DAU9S #### [facility] [address] [place] [address] Lumber Sorter: Trey Carroll MD #### HEATHER CDP, MG #### [facility] [address] [place] [address] Lumber Sorter: Belia Manjarrez MD MCHC (RBC) [Mass/Vol] 34.4 g/dL Normal 28.4-34.8 [facility] Comment on above: Performed By: #### A DAU9S #### [facility] [address] [place] [address] Lumber Sorter: Trey Carroll MD #### HEATHER CDP, MG #### [facility] [address] [place] [address] Lumber Sorter: Belia Manjarrez MD MCV (RBC) [Entitic vol] 89.9 fL Normal 82.6-102.9 [facility] Comment on above: Performed By: #### A DAU9S #### [facility] [address] [place], [place] [id number] Lumber Sorter: Trey Carroll MD #### CP, CDP, MG #### [facility] [address] [place] [address] Lumber Sorter: Belia Manjarrez MD Monocytes (Bld) [#/Vol] 0.67 10*3/uL Normal 0.10-1.20 [facility] Comment on above: Performed By: #### A DAU9S #### [facility] [address] [place] [address] Lumber Sorter: Trey Carroll MD #### CP, CDP, MG #### [facility] [address] [place] [address] Lumber Sorter: Belia Manjarrez MD Monocytes/100 WBC (Bld) 7 % Normal 3-12 [facility] Comment on above: Performed By: #### A DAU9S #### [facility] [address] [place] [address] Lumber Sorter: Trey Carroll MD #### CP, CDP, MG #### [facility] [address] [place] [address] Lumber Sorter: Belia Manjarrez MD Neutrophil (Seg) 57 % Normal 36-65 [facility] Comment on above: Performed By: #### A DAU9S #### [facility] [address] [place] [address] Lumber Sorter: Trey Carroll MD #### HEATHER, CDP, MG #### [facility] [address] [place] [address] Lumber Sorter: Belia Manjarrez MD NRBC Automated 0.0 per 100 WBC Normal 0.0 [facility] Comment on above: Performed By: #### A DAU9S #### [facility] [address] [place] [address] Lumber Sorter: Trey Carroll MD #### CP, CDP, MG #### [facility] [address] [place] [address] Lumber Sorter: Belia Manjarrez MD Platelet mean volume (Bld) [Entitic vol] 9.6 fL Normal 8.1-13.5 [facility] Comment on above: Performed By: #### A DAU9S #### [facility] [address] [place] [address] Lumber Sorter: Trey Carroll MD #### CP, CDP, MG #### [facility] [address] [place] [address] Lumber Sorter: Belia Manjarrez MD Platelets (Bld) [#/Vol] 314 10*3/uL Normal 138-453 [facility] Comment on above: Performed By: #### A DAU9S #### [facility] [address] [place] [address] Lumber Sorter: Trey Carroll MD #### CP, CDP, MG #### [facility] [address] [place] [address] Lumber Sorter: Belia Manjarrez MD RBC (Bld) [#/Vol] 4.56 10*6/uL Normal 3.95-5.11 [facility] Comment on above: Performed By: #### A DAU9S #### [facility] [address] [place] [address] Lumber Sorter: Trey Carroll MD #### HEATHER, CDP, MG #### [facility] [address] [place] [address] Lumber Sorter: Belia Manjarrez MD WBC (Bld) [#/Vol] 10.3 10*3/uL Normal 3.5-11.3 [facility] Comment on above: Performed By: #### A DAU9S #### [facility] [address] [place] [address] Lumber Sorter: Trey Carroll MD #### CP, CDP, MG #### [facility] [address] [place] [address] Lumber Sorter: Belia Manjarrez MD Comp Metabolic Profon 2023 Albumin [Mass/Vol] 4.4 g/dL Normal 3.5-5.2 [facility] Comment on above: Performed By: #### A DAU9S #### [facility] [address] [place] [address] Lumber Sorter: Trey Carroll MD #### CP, CDP, MG #### [facility] [address] [place], [place] [id number] Lumber Sorter: Belia Manjarrez MD Albumin/Glob Ratio 1.5 Normal 1.0-2.5 [facility] Comment on above: Performed By: #### A DAU9S #### [facility] [address] [place] [address] Lumber Sorter: Trey Carroll MD #### HEATHER, CDP, MG #### [facility] [address] [place] [address] Lumber Sorter: Belia Manjarrez MD Alkaline Phos 108 U/L High 35-104 [facility] Comment on above: Performed By: #### A DAU9S #### [facility] [address] [place] [address] Lumber Sorter: Trey Carroll MD #### HEATHER, CDP, MG #### [facility] [address] [place] [address] Lumber Sorter: Belia Manjarrez MD ALT [Catalytic activity/Vol] 46 U/L High 5-33 [facility] Comment on above: Performed By: #### A DAU9S #### [facility] [address] [place] [address] Lumber Sorter: Trey Carroll MD #### CP, CDP, MG #### [facility] [address] [place] [address] Lumber Sorter: Belia Manjarrez MD Anion gap [Moles/Vol] 10 mmol/L Normal 9-17 [facility] Comment on above: Performed By: #### A DAU9S #### [facility] [address] [place] [address] Lumber Sorter: Trey Carroll MD #### CP, CDP, MG #### [facility] [address] [place] [address] Lumber Sorter: Belia Manjarrez MD AST [Catalytic activity/Vol] 32 U/L High <32 [facility] Comment on above: Performed By: #### A DAU9S #### [facility] [address] [place] [address] Lumber Sorter: Trey Carroll MD #### CP, CDP, MG #### [facility] [address] [place] [address] Lumber Sorter: Belia Manjarrez MD Bilirubin [Mass/Vol] 0.4 mg/dL Normal 0.3-1.[address] [facility] Comment on above: Performed By: #### A DAU9S #### [facility] [address] [place] [address] Lumber Sorter: Trey Carroll MD #### CP, CDP, MG #### [facility] [address] [place] [address] Lumber Sorter: Belia Manjarrez MD BUN/CRE Ratio 12 Normal 9-20 [facility] Comment on above: Performed By: #### A DAU9S #### [facility] [address] [place] [address] Lumber Sorter: Trey Carroll MD #### CP, CDP, MG #### [facility] [address] [place] [address] Lumber Sorter: Belia Manjarrez MD Calcium [Mass/Vol] 9.1 mg/dL Normal 8.6-10.4 [facility] Comment on above: Performed By: #### A DAU9S #### [facility] [address] [place] [address] Lumber Sorter: Trey Carroll MD #### CP, CDP, MG #### [facility] [address] [place] [address] Lumber Sorter: Belia Manjarrez MD Chloride [Moles/Vol] 106 mmol/L Normal 98-[address] [facility] Comment on above: Performed By: #### A DAU9S #### [facility] [address] [place], [place] [id number] Lumber Sorter: Trey Carroll MD #### CP, CDP, MG #### [facility] [address] [place] [address] Lumber Sorter: Belia Manjarrez MD CO2 [Moles/Vol] 26 mmol/L Normal 20-31 [facility] Comment on above: Performed By: #### A DAU9S #### [facility] [address] [place], [place] [id number] Lumber Sorter: Trey Carroll MD #### CP, CDP, MG #### [facility] [address] [place] [address] Lumber Sorter: Belia Manjarrez MD Creatinine [Mass/Vol] 0.5 mg/dL Normal 0.5-0.9 [facility] Comment on above: Performed By: #### A DAU9S #### [facility] [address] [place] [address] Lumber Sorter: Trey Carroll MD #### CP, CDP, MG #### [facility] [address] [place] [address] Lumber Sorter: Belia Manjarrez MD GFR/1.73 sq M.predicted among non-blacks MDRD (S/P/Bld) [Vol rate/Area] mL/min/{1.73_m2} Normal >60 [facility] Comment on above: Result Comment: [...] By: #### A DAU9S #### [facility] [address] [place] [id number] Lumber Sorter: Trey Carroll MD #### HEATHER, CDP, MG #### [facility] [address] [place] [address] Lumber Sorter: Belia Manjarrez MD Glucose [Mass/Vol] 90 mg/dL Normal 70-99 [facility] Comment on above: Performed By: #### A JIMU9S #### [address] [id number] Lumber Sorter: Trey Carroll MD #### HEATHER CDP, MG #### [address] [place] [address] Lumber Sorter: Belia Manjarrez MD Potassium [Moles/Vol] 4.2 mmol/L Normal 3.7-5.3 [facility] Comment on above: Performed By: #### A DAU9S #### [address] [id number] Lumber Sorter: Trey Carroll MD #### HEATHER CDP, MG #### [facility] [address] [place] [address] [place] [address] Lumber Sorter: Belia Manjarrez MD Protein [Mass/Vol] 7.4 g/dL Normal 6.4-8.3 [facility] Comment on above: Performed By: #### A DAU9S #### [facility] [address] [place], [place] [id number] Lumber Sorter: Trey Carroll MD #### HEATHER CDP, MG #### [address] [place] [address] Lumber Sorter: Belia Manjarrez MD Sodium [Moles/Vol] 142 mmol/L Normal 135-144 [facility] Comment on above: Performed By: #### A DAU9S #### [facility] [address] [place] [address] Lumber Sorter: Trey Carroll MD #### CP, CDP, MG #### [address] [place], [place] 8[address]83 Lumber Sorter: Belia Manjarrez MD Urea nitrogen [Mass/Vol] 6 mg/dL Normal 6-20 [facility] Comment on above: Performed By: #### A DAU9S #### [facility] [address] [place], [place] [id number] Lumber Sorter: Trey Carroll MD #### CP, CDP, MG #### [address] [place], [place] [id number] Lumber Sorter: Belia Manjarrez MD Drug Scr, Abuse, Uron 2023 Amphetamine(s),Ur Negative Normal NEG [facility] Comment on above: Result Comment: (Positive cutoff 1000 ng/mL) Performed By: #### D AU #### [address] [place] [address] Lumber Sorter: Belia Manjarrez MD Barbiturate(s),Ur Negative Normal NEG [facility] Comment on above: Result Comment: (Positive cutoff 200 ng/mL) Performed By: #### D AU #### [address] [place] [address] Lumber Sorter: Belia Manjarrez MD Benzodiazepine(s) Negative Normal NEG [facility] Comment on above: Result Comment: (Positive cutoff 200 ng/mL) Performed By: #### D AU #### [address] [place], [place] 1688483 Lumber Sorter: Belia Manjarrez MD Buprenorphrine, Ur Negative Normal NEG [facility] Comment on above: Result Comment: (Positive cutoff 5 ng/ml) Performed By: #### D AU #### [facility] [address] [place] [address] [place], [place] [id number] Lumber Sorter: Belia Manjarrez MD Cannabinoid(s),Ur Negative Normal [facility] Comment on above: Result Comment: (Positive cutoff 50 ng/mL) Performed By: #### D AU #### [facility] [address] [place] [address] [place] [address] Lumber Sorter: Belia Manjarrez MD Cocaine Metabolite Negative [facility] Comment on above: Result Comment: (Positive cutoff 300 ng/mL) Performed By: #### D AU #### [address] [place] [id number] Lumber Sorter: Belia Manjarrez MD Fentanyl, Urine Negative Normal [facility] Comment on above: Result Comment: (Positive cutoff 5 ng/ml) Performed By: #### D AU #### [address] [place], [place] [id number] Lumber Sorter: Belia Manjarrez MD Interpretive Info Assay provides medical screening only. The absence of expected drug(s) and/or Normal [facility] Comment on above: Result Comment: meta bolite(s) may indicate diluted or adulterated urine, limitations of testing or timing of collection. Testing for legal purposes should be confirmed by another method. To request confirmation of test result, please call the lab within 7 days of sample submission. Performed By: #### D AU #### [address] [place], [place] [id number] Lumber Sorter: Belia Manjarrez MD Methadone Ql (U) Negative Normal NEG [facility] Comment on above: Result Comment: (Positive cutoff 300 ng/mL) Performed By: #### D AU #### [address] [place], [place] [id number] Lumber Sorter: Belia Manjarrez MD Opiate(s), Ur Negative Normal NEG [facility] Comment on above: Result Comment: (Positive cutoff 300 ng/mL) Performed By: #### D AU #### [facility] [address] [place] [address] [place], [place] [id number] Lumber Sorter: Belia Manjarrez MD Oxycodone, Urine Negative Normal NEG [facility] Comment on above: Result Comment: (Positive cutoff 100 ng/mL) Performed By: #### D AU #### [address] [place] [address] Lumber Sorter: Belia Manjarrez MD Phencyclidine, Ur Negative Normal NEG [facility] Comment on above: Result Comment: (Positive cutoff 25 ng/mL) Performed By: #### D AU #### [address] [place], [place] 9[address]83 Lumber Sorter: Belia Manjarrez MD Magnesiumon 06-12-2024 Magnesium [Mass/Vol] 2.2 mg/dL Normal 1.6-2.[address] [facility] Comment on above: Performed By: #### A DAU9S #### [facility] [address] [place] [address] Lumber Sorter: Trey Carroll MD #### HEATHER, CDP, MG #### [facility] [address] [place] [address] [place] [address] Lumber Sorter: Belia Manjarrez MD XR knee LT 4V*on 09-13-2023 XR knee LT 4V* [facility] [employer] Other XR knee LT 4V* [facility] [employer] Other XR knee LT 4V* [address] [place] [address] [employer] Other XR knee LT 4V* [place] [address] No rth [employer] Other XR knee LT 4V* XRay Report [employer] Other XR knee LT 4V* Signed [employer] Other XR knee LT 4V* Patient: Josephine Herndon MR#: [id number] [email or web address] Other XR knee LT 4V* 8 [employer] Other XR knee LT 4V* : 1980 Acct:[id number] [email or web address] Other XR knee LT 4V* Age/Sex: 43 / F ADM Date: 09/13/23 [email or web address] Other XR knee LT 4V* Loc: XDUCLY Room: Type: REG CLI [email or web address] Other XR knee LT 4V* Attending Dr: Shae Love APRN [email or web address] Other XR knee LT 4V* Copies to: Shae Love APRN [email or web address] Other XR knee LT 4V* Ordering Provider: Shae Love APRN [email or web address] Other XR knee LT 4V* Date of Service: 09/13/23 [email or web address] Other XR knee LT 4V* XR/XR knee LT 4V*: Injury [email or web address] Other XR knee LT 4V* XR knee LT 4V* 09/13/2023 10:51 AM [email or web address] Other XR knee LT 4V* SIGNS AND SYMPTOMS: Twisting injury to left knee with pain and swelling medially [email or web address] Other XR knee LT 4V* PROTOCOL: Frontal, lateral, and oblique radiographs of the left knee [email or web address] Other XR knee LT 4V* COMPARISON: None [employer] Other XR knee LT 4V* FINDINGS: [employer] Other XR knee LT 4V* The joint spaces are preserved. There is a moderate joint effusion. There is no evidence of fracture [email or web address] Other XR knee LT 4V* or dislocation. No significant soft tissue swelling. [email or web address] Other XR knee LT 4V* XR/XR knee LT 4V* [email or web address] Other XR knee LT 4V* IMPRESSION: [employer] Other XR knee LT 4V* No fracture. [employer] Other XR knee LT 4V* There is a moderate joint effusion. [email or web address] Other XR knee LT 4V* Impression dictated by: Donato Rockwell M.D.09/13/2023 11:19 AM [email or web address] Other XR knee LT 4V* Dictation Location: [place] [address] [email or web address] Other XR knee LT 4V* Transcribed By: NICKY 09/13/23 [facility] [email or web address] Other XR knee LT 4V* Dictated By: Donato Rockwell II, MD 09/13/23 [facility] [email or web address] Other XR knee LT 4V* Signed By: [employer] Other XR knee LT 4V* 09/13/23 [email or web address] Other XR knee LT 4V* [facility] [address] [place] [id number] XRay Report Signed Patient: Josephine Herndon MR#: [id number] 8 : 1980 Acct:[id number] Age/Sex: 43 / F ADM Date: 09/13/23 Loc: XDUCLY Room: Type: [facility] Attending Dr: Shae Love APRN Copies to: [...] Donato Rockwell M.D.09/13/2023 11:19 AM Dictation Location: [place] [address] Transcribed By: [facility] 09/13/23 1119 Dictated By: Donato Rockwell II, MD 09/13/23 1118 Signed By: 09/13/23 1119 [facility] CT CHEST WO CONon 10-10-2022 CT CHEST [...] AMANDA CASSIDY Date: 2022-10-10 10:35 Normal [facility] Covid-19 PCR (CVDTB)on SARS-CoV-2 (COVID-19) RNA RAYMOND+probe Ql (Unsp spec) Not detected Normal NOT DETECTED [facility] Comment on above: Result Comment: When diagnostic [...] for this test is supported by the [place] of Health and Human Service's declaration that [...] longer be used). Performed By: #### [facility] #### [facility] [address] [address] [address] CHEST WO CONon [...] by: BELIA HENDRICKS Date: 2022-09-01 09:55 Normal [facility] MAMM SCREEN 3D GUSTAVO CADon 09-01-2022 MG MAMM SCREEN 3D GUSTAVO CAD Patient: JOSEPHINE HERNDON Exam Date: 09/01/2022 : 1980 Gender:F Ordering : DR ANGELICA DE . Admission #: [id number] Family : Order #: [id number] CLICK HERE TO VIEW EXAM RADIOLOGY REPORT [...] bladder cancer at age 59. LOCATION: [facility] BREAST COMPOSITION: Scattered areas fibroglandular density. FINDINGS: [...] Hendricks MD on 09/01/2022 at 09:32 Normal [facility] PAP ACOG PANEL 2: 21 to 29on 06-02-2022 . . Normal [facility] Comment on above: Result Comment: Perf ormed at: WB Performed By: #### 4 [id number] #### [facility] [address] [address] [address] Les Bryan Age Gdln ACOG Testing 30-65 Normal [facility] Comment on above: Performed By: #### [id number] #### [facility] [address] [place] [address] Dr. Les Bryan DIAGNOSIS: Comment Normal [facility] Comment on above: Result Comment: NEGA TIVE FOR INTRAEPITHELIAL LESION OR MALIGNANCY. Performed at: WB Performed By: #### 4 [id number] #### [facility] [address] [place] [address] Dr. Les Bryan HPV Aptima Negative Normal Negative [facility] Comment on above: Result Comment: This nucleic acid amplification test detects fourteen high-risk HPV types (16,18,31,33,35,39,45,51,52,56,58,59,66,68) without differentiation. Performed at: =G Performed By: #### 4 [id number] #### [facility] [address] [place] [address] Dr. Les Bryan Methodology: Comment Normal [facility] Comment on above: Result Comment: This liquid based ThinPrep(R) pap test was screened with the use of an image guided system. Performed at: WB Performed By: #### 4 [id number] #### [facility] [address] [place] [address] Dr. Les Bryan Note: Comment Normal [facility] Comment on above: Result Comment: The Pap smear is a screening test designed to aid in the detection of premalignant and malignant conditions of the uterine cervix. It is not a diagnostic procedure and should not be used as the sole means of detecting cervical cancer. Both false-positive and false-negative reports do occur. . Performed at: WB Performed By: #### 4 [id number] #### [facility] [address] [place] [address] Dr. Les Bryan Performed by: Comment Normal [facility] Comment on above: Result Comment: Bella Cuevas Heavy Equipment Mechanic (ASCP) Performed at: WB Performed By: #### 4 [id number] #### [facility] [address] [address] [address] Les Bryan Specimen adequacy: Comment Normal [facility] Comment on above: Result Comment: Sati sfactory for evaluation. Endocervical and/or squamous metaplastic cells (endocervical component) are present. Performed at: WB Performed By: #### 4 [id number] #### [facility] [address] [address] [address] Les Brayn HEPATITIS PANEL, ACUTEon HBsAg Screen Negative Normal Negative [facility] Comment on above: Performed By: #### H EPACUT #### [facility] [address] [address] [address] Les Bryan HCV AB 0.2 s/co ratio Normal 0.0-0.9 [facility] Comment on above: Performed By: #### H EPACUT #### [facility] [address] [address] [address] Les Bryan Hep A Ab, IgM Negative Normal Negative [facility] Comment on above: Performed By: #### H EPACUT #### [facility] [address] [address] [address] Les Bryan Hep B Core Ab, IgM Negative Normal Negative [facility] Comment on above: Performed By: #### H EPACUT #### [facility] [address] [address] [address] Les Bryan Interpretation: Comment Normal [facility] Comment on above: Result Comment: Nega tive Not infected with HCV, unless recent infection is suspected or other evidence exists to indicate HCV infection. Performed By: #### H EPACUT #### [facility] [address] [address] [address] Les Bryan INSULINon 04-18-2022 Insulin 18.8 uIU/mL Normal 2.6-24.9 [facility] Comment on above: Performed By: #### I NSULIN #### [facility] [address] [place] [address] Dr. Les Bryan BILIRUBIN CONJUGATED (DIRECT )on 04-17-2022 BILI, CONJUGATED 0.1 mg/dL Normal 0.0-0.2 [facility] Comment on above: Performed By: #### RICARDO STEVENSON #### [facility] [address] [place] [address] Dr. Les Bryan BNPon 04-17-2022 Natriuretic peptide B (Bld) [Mass/Vol] 12.0 pg/mL Normal <=450.0 [facility] Comment on above: Performed By: #### RICARDO STEVENSON #### [facility] [address] [place] [address] Dr. Les Bryan CBC AUTO DIFFon 04-17-2022 BASO # 0.1 103/ul Normal 0.0-0.1 [facility] Comment on above: Performed By: #### C BC #### [facility] [address] [place] [address] Dr. Les Bryan Basophils/100 WBC (Bld) 0.6 % Normal 0.2-2.0 [facility] Comment on above: Performed By: #### C BC #### [facility] [address] [place] [address] Dr. Les Bryan EO # 0.3 103/ul Normal 0.0-0.7 [facility] Comment on above: Performed By: #### C BC #### [facility] [address] [place] [address] Dr. Les Bryan Eosinophils/100 WBC (Bld) 3.0 % Normal 0.9-7.0 [facility] Comment on above: Performed By: #### C BC #### [facility] [address] [place] [address] Dr. Les Bryan Erythrocyte distribution width (RBC) [Ratio] 13.2 % Normal 11.0-15.0 [facility] Comment on above: Performed By: #### C BC #### [facility] [address] [place] [address] Dr. Les Bryan Hematocrit (Bld) [Volume fraction] 40.8 % Normal 36.0-48.0 [facility] Comment on above: Performed By: #### C BC #### [facility] [address] [place] [address] Dr. Les Bryan Hemoglobin (Bld) [Mass/Vol] 13.4 g/dL Normal 12.0-16.0 [facility] Comment on above: Performed By: #### C BC #### [facility] [address] [place] [address] Dr. Les Bryan IG # 0.07 10e3/ul Critically high 0.00-0.03 [facility] Comment on above: Performed By: #### C BC #### [facility] [address] [place] [address] Dr. Les Bryan IG % 0.8 % Critically high 0.0-0.5 [facility] Comment on above: Performed By: #### C BC #### [facility] [address] [place] [address] Dr. Les Bryan LYMPH # 2.8 103/ul Normal 1.2-3.8 [facility] Comment on above: Performed By: #### C BC #### [facility] [address] [place] [address] Dr. Les Bryan Lymphocytes/100 WBC (Bld) 31.7 % Normal 20.5-60.0 [facility] Comment on above: Performed By: #### C BC #### [facility] [address] [place] [address] Dr. Les Bryan MANUAL DIFF REQ NO Normal [facility] Comment on above: Performed By: #### C BC #### [facility] [address] [place] [address] Dr. Les Bryan MCH (RBC) [Entitic mass] 29.5 pg Normal 26.7-34.0 [facility] Comment on above: Performed By: #### C BC #### [facility] [address] [place] [address] Dr. Les Bryan MCHC (RBC) [Mass/Vol] 32.8 g/dL Normal 29.9-35.2 [facility] Comment on above: Performed By: #### C BC #### [facility] [address] [address] [address] Les Bryan MCV (RBC) [Entitic vol] 89.9 fL Normal 81.0-99.0 [facility] Comment on above: Performed By: #### C BC #### [facility] [address] [address] [address] Les Bryan MONO # 0.4 103/ul Normal 0.3-0.8 [facility] Comment on above: Performed By: #### C BC #### [facility] [address] [address] [address] Les Bryan Monocytes/100 WBC (Bld) 4.7 % Normal 1.7-12.0 [facility] Comment on above: Performed By: #### C BC #### [facility] [address] [place] [address] Dr. Les Bryan NEUT # 5.3 103/ul Normal 1.4-6.5 [facility] Comment on above: Performed By: #### C BC #### [facility] [address] [place] [address] Dr. Les Bryan Neutrophils/100 WBC (Bld) 59.2 % Normal 43.0-75.0 [facility] Comment on above: Performed By: #### C BC #### [facility] [address] [place] [address] Dr. Les Byran Platelet mean volume (Bld) [Entitic vol] 9.1 fL Critically low 9.5-13.5 [facility] Comment on above: Performed By: #### C BC #### [facility] [address] [place] [address] Dr. Les Bryan PLT 309 103/ul Normal 150-450 [facility] Comment on above: Performed By: #### C BC #### [facility] [address] [place] [address] Dr. Les Bryan RBC 4.54 106/ul Normal 4.20-5.40 [facility] Comment on above: Performed By: #### C BC #### [facility] [address] [place] [address] Dr. Les Bryan WBC 8.9 103/ul Normal 4.0-11.0 [facility] Comment on above: Performed By: #### C BC #### [facility] [address] [place] [address] Dr. Les Bryan FREE T3on 04-17-2022 FREE T3 2.02 pg/mlL Critically low 2.18-3.98 [facility] Comment on above: Performed By: #### RICARDO STEVENSON #### [facility] [address] [place] [address] Dr. Les Bryan FREE THYROXINE INDEX T7on FTI 2.07 Normal 1.30-4.50 [facility] Comment on above: Performed By: #### RICARDO STEVENSON #### [facility] [address] [place] [address] Dr. Les Bryan T3U 30.0 % Normal 30.0-39.0 [facility] Comment on above: Performed By: #### RICARDO STEVENSON #### [facility] [address] [place] [address] Dr. Les Bryan T4 [Mass/Vol] 6.90 ug/dL Normal 4.80-13.90 [facility] Comment on above: Performed By: #### RICARDO STEVENSON #### [facility] [address] [place] [address] Dr. Les Bryan GLYCOHEMOGLOBIN A1Con 2021 ADA RECOMMENDATION SEE BELOW Normal [facility] Comment on above: Result Comment: ADA RECOMMENDED LIMIT 4.0 - 6.0 ADA THERAPEUTIC TARGET < 7.0 ACTION SUGGESTED > 7.0 Performed By: #### A 1C #### [facility] [address] [place] [address] Dr. Les Bryan Glucose [Mass/Vol] 120 mg/dL Normal [facility] Comment on above: Performed By: #### A 1C #### [facility] [address] [place] [address] Dr. Les Bryan HbA1c (Bld) [Mass fraction] 5.8 % Normal 4.5-6.2 [facility] Comment on above: Performed By: #### A 1C #### [facility] [address] [address] [address] Les Bryan IRONon 04-17-2022 Iron [Mass/Vol] 66.0 ug/dL Normal 50.0-170.0 [facility] Comment on above: Performed By: #### BARBER STEVENSONRO #### [facility] [address] [address] [address] Les Bryan LIPID PROFILEon 04-17-2022 CHOL-HDL RATIO NORM SEE BELOW Normal [facility] Comment on above: Result Comment: 3.3 - 4.4 LOW RISK 4.4 - 7.1 AVERAGE RISK 7.1 - 11.0 MODERATE RISK >11.0 HIGH RISK Performed By: #### BARBER STEVENSONRO #### [facility] [address] [address] [address] Les Bryan Cholesterol [Mass/Vol] 244 mg/dL Critically high <=200 [facility] Comment on above: Performed By: #### BARBER STEVENSONRO #### [facility] [address] [address] [address] Les Bryan Cholesterol in HDL [Mass/Vol] 55 mg/dL Normal 40-60 [facility] Comment on above: Performed By: #### BARBER STEVENSONRO #### [facility] [address] [address] [address] Les Bryan Cholesterol in LDL [Mass/Vol] 155.4 mg/dL Normal [facility] Comment on above: Performed By: #### BARBER STEVENSONRO #### [facility] [address] [address] [address] Les Bryan Cholesterol.total/Ch olesterol in HDL [Mass ratio] 4.4 {ratio} Normal [facility] Comment on above: Performed By: #### Andi GUY UMICRO #### [facility] [address] [address] [address] Les Bryan HDL NORMAL > or = 60 mg/dl - LOW CARDIOVASCULAR RISK <40 mg/dl - HIGH CARDIOVASCULAR RISK Normal [facility] Comment on above: Performed By: #### Andi GUY UMICRO #### [facility] [address] [place] [address] Dr. Les Bryan LDL CALC NORMAL SEE BELOW Normal [facility] Comment on above: Result Comment: <100 mg/dl OPTIMAL 100 - 129 mg/dl NEAR OR ABOVE OPTIMAL 130 - 159 mg/dl BORDERLINE HIGH 160 - 189 mg/dl HIGH >190 mg/dl VERY HIGH Performed By: #### Andi GUY UMICRO #### [facility] [address] [address] [address] Les Bryan Triglyceride [Mass/Vol] 168 mg/dL Critically high <=150 [facility] Comment on above: Performed By: #### Andi GUY UMICRO #### [facility] [address] [place] [address] Dr. Les Bryan VLDL CALC 33.6 mg/dL Normal [facility] Comment on above: Performed By: #### Andi GUY UMICRO #### [facility] [address] [place] [address] Dr. Les Bryan PROF 14(COMP METB)on 022 Albumin [Mass/Vol] 3.9 g/dL Normal 3.4-5.0 [facility] Comment on above: Performed By: #### Andi GUY UMICRO #### [facility] [address] [place] [address] Dr. Les Bryan Albumin/Globulin [Mass ratio] 0.9 {ratio} Normal [facility] Comment on above: Performed By: #### Andi GUY UMICRO #### [facility] [address] [place] [address] Dr. Les Bryan ALP [Catalytic activity/Vol] 137 U/L Critically high 46-116 [facility] Comment on above: Performed By: #### Andi GUY UMICRO #### [facility] [address] [address] [address] Les Bryan ALT [Catalytic activity/Vol] 104 U/L Critically high 14-59 [facility] Comment on above: Performed By: #### RICARDO STEVENSON #### [facility] [address] [place] [address] Dr. Les Bryan Anion gap [Moles/Vol] 13.3 mmol/L Normal [facility] Comment on above: Performed By: #### BARBER STEVENSONRO #### [facility] [address] [place] [address] Dr. Les Bryan AST [Catalytic activity/Vol] 59 U/L Critically high 15-37 [facility] Comment on above: Performed By: #### BARBER STEVENSONRO #### [facility] [address] [place] [address] Dr. Les Bryan Bilirubin [Mass/Vol] 0.3 mg/dL Normal 0.2-1.0 [facility] Comment on above: Performed By: #### RICARDO STEVENSON #### [facility] [address] [place] [address] Dr. Les Bryan Calcium [Mass/Vol] 9.0 mg/dL Normal 8.5-10.1 [facility] Comment on above: Performed By: #### RICARDO STEVENSON #### [facility] [address] [place] [address] Dr. Les Bryan Chloride [Moles/Vol] 104 mmol/L Normal 98-107 [facility] Comment on above: Performed By: #### BARBER STEVENSONRO #### [facility] [address] [place] [address] Dr. Les Bryan CO2 [Moles/Vol] 25.0 mmol/L Normal 21.0-32.0 [facility] Comment on above: Performed By: #### RICARDO STEVENSON #### [facility] [address] [place] [address] Dr. Les Bryan Creatinine [Mass/Vol] 0.70 mg/dL Normal 0.55-1.02 [facility] Comment on above: Performed By: #### BARBER STEVENSONRO #### [facility] [address] [address] [address] Les Bryan EGFR-AF BAHAMIAN 111 mL/min/1.73m2 Normal >=60 [facility] Comment on above: Performed By: #### BARBER STEVENSONRO #### [facility] [address] [place] [address] Dr. Les Bryan EGFR-NON AF BAHAMIAN 92 mL/min/1.73m2 Normal >=60 [facility] Comment on above: Performed By: #### Andi GUY UMICRO #### [facility] [address] [place] [address] Dr. Les Bryan Globulin (S) [Mass/Vol] 4.3 g/dL Normal [facility] Comment on above: Performed By: #### Andi GUY UMICRO #### [facility] [address] [place] [address] Dr. Les Bryan Glucose [Mass/Vol] 104 mg/dL Normal 74-106 [facility] Comment on above: Performed By: #### Andi GUY UMICRO #### [facility] [address] [place] [address] Dr. Les Bryan Potassium [Moles/Vol] 4.3 mmol/L Normal 3.5-5.1 [facility] Comment on above: Performed By: #### Andi GUY UMICRO #### [facility] [address] [place] [address] Dr. Les Bryan Protein [Mass/Vol] 8.2 g/dL Normal 6.4-8.2 [facility] Comment on above: Performed By: #### Andi GUY, UMICRO #### [facility] [address] [place] [address] Dr. Les Bryan Sodium [Moles/Vol] 138 mmol/L Normal 136-145 [facility] Comment on above: Performed By: #### Andi GUY, UMICRO #### [facility] [address] [place] [address] Dr. Les Bryan Urea nitrogen [Mass/Vol] 10.0 mg/dL Normal 7.0-18.0 [facility] Comment on above: Performed By: #### RICARDO STEVENSON #### [facility] [address] [place] [address] Dr. Les Bryan Urea nitrogen/Creatinine [Mass ratio] 14.3 mg/mg Normal [facility] Comment on above: Performed By: #### RICARDO STEVENSON #### [facility] [address] [place] [address] Dr. Les Bryan TSHon 04-17-2022 TSH 4.067 uIU/mL Critically high 0.358-3.740 [facility] Comment on above: Performed By: #### T SH, DBIL, BNP, FT3, T7, LIPID, CMP #### [facility] [address] [place] [address] Dr. Les Bryan INSULINon 04-06-2022 Insulin 34.6 uIU/mL Critically high 2.6-24.9 [facility] Comment on above: Performed By: #### RICARDO STEVENSON #### [facility] [address] [place] [address] Dr. Les Bryan T4 LABCORPon 04-06-2022 T4 [Mass/Vol] 6.7 ug/dL Normal 4.5-12.0 [facility] Comment on above: Performed By: #### 4 [id number] #### [facility] [address] [place] [address] Dr. Les Bryan BNPon 04-05-2022 Natriuretic peptide B (Bld) [Mass/Vol] 18.0 pg/mL Normal <=450.0 [facility] Comment on above: Performed By: #### RICARDO STEVENSON #### [facility] [address] [place] [address] Dr. Les Bryan CBC AUTO DIFFon 04-05-2022 BASO # 0.1 103/ul Normal 0.0-0.1 [facility] Comment on above: Performed By: #### 4 [id number] #### [facility] [address] [place] [address] Dr. Les Bryan Basophils/100 WBC (Bld) 0.6 % Normal 0.2-2.0 [facility] Comment on above: Performed By: #### 4 [id number] #### [facility] [address] [place] [address] Dr. Les Bryan EO # 0.2 103/ul Normal 0.0-0.7 [facility] Comment on above: Performed By: #### 4 [id number] #### [facility] [address] [place] [address] Dr. Les Bryan Eosinophils/100 WBC (Bld) 1.9 % Normal 0.9-7.0 [facility] Comment on above: Performed By: #### 4 [id number] #### [facility] [address] [place] [address] Dr. Les Bryan Erythrocyte distribution width (RBC) [Ratio] 13.3 % Normal 11.0-15.0 [facility] Comment on above: Performed By: #### 4 [id number] #### [facility] [address] [place] [address] Dr. Les Bryan Hematocrit (Bld) [Volume fraction] 39.1 % Normal 36.0-48.0 [facility] Comment on above: Performed By: #### 4 [id number] #### [facility] [address] [place] [address] Dr. Les Bryan Hemoglobin (Bld) [Mass/Vol] 13.2 g/dL Normal 12.0-16.0 [facility] Comment on above: Performed By: #### 4 [id number] #### [facility] [address] [place] [address] Dr. Les Bryan IG # 0.08 10e3/ul Critically high 0.00-0.03 [facility] Comment on above: Performed By: #### 4 [id number] #### [facility] [address] [place] [address] Dr. Les Bryan IG % 0.8 % Critically high 0.0-0.5 [facility] Comment on above: Performed By: #### 4 [id number] #### [facility] [address] [place] [address] Dr. Les Bryan LYMPH # 3.0 103/ul Normal 1.2-3.8 [facility] Comment on above: Performed By: #### 4 [id number] #### [facility] [address] [place] [address] Dr. Les Bryan Lymphocytes/100 WBC (Bld) 31.4 % Normal 20.5-60.0 [facility] Comment on above: Performed By: #### 4 [id number] #### [facility] [address] [place] [address] Dr. Les Bryan MANUAL DIFF REQ NO Normal [facility] Comment on above: Performed By: #### 4 [id number] #### [facility] [address] [place] [address] Dr. Les Bryan MCH (RBC) [Entitic mass] 30.1 pg Normal 26.7-34.0 [facility] Comment on above: Performed By: #### 4 [id number] #### [facility] [address] [place] [address] Dr. Les Bryan MCHC (RBC) [Mass/Vol] 33.8 g/dL Normal 29.9-35.2 [facility] Comment on above: Performed By: #### 4 [id number] #### [facility] [address] [place] [address] Dr. Les Bryan MCV (RBC) [Entitic vol] 89.1 fL Normal 81.0-99.0 [facility] Comment on above: Performed By: #### 4 [id number] #### [facility] [address] [place] [address] Dr. Les Bryan MONO # 0.6 103/ul Normal 0.3-0.8 [facility] Comment on above: Performed By: #### 4 [id number] #### [facility] [address] [place] [address] Dr. Les Bryan Monocytes/100 WBC (Bld) 6.1 % Normal 1.7-12.0 [facility] Comment on above: Performed By: #### 4 [id number] #### [facility] [address] [place] [address] Dr. Les Bryan NEUT # 5.6 103/ul Normal 1.4-6.5 [facility] Comment on above: Performed By: #### 4 [id number] #### [facility] [address] [place] [address] Dr. Les Bryan Neutrophils/100 WBC (Bld) 59.2 % Normal 43.0-75.0 [facility] Comment on above: Performed By: #### 4 [id number] #### [facility] [address] [place] [address] Dr. Les Bryan Platelet mean volume (Bld) [Entitic vol] 9.0 fL Critically low 9.5-13.5 [facility] Comment on above: Performed By: #### 4 [id number] #### [facility] [address] [place] [address] Dr. Les Bryan PLT 286 103/ul Normal 150-450 [facility] Comment on above: Performed By: #### 4 [id number] #### [facility] [address] [place] [address] Dr. Les Bryan RBC 4.39 106/ul Normal 4.20-5.40 [facility] Comment on above: Performed By: #### 4 [id number] #### [facility] [address] [place] [address] Dr. Les Bryan WBC 9.5 103/ul Normal 4.0-11.0 [facility] Comment on above: Performed By: #### 4 [id number] #### [facility] [address] [place] [address] Dr. Les rByan FREE T3on 04-05-2022 FREE T3 2.73 pg/mlL Normal 2.18-3.98 [facility] Comment on above: Performed By: #### RICARDO STEVENSON #### [facility] [address] [place] [address] Dr. Les Bryan FREE THYROXINE INDEX T7on FTI 2.08 Normal 1.30-4.50 [facility] Comment on above: Performed By: #### RICARDO STEVENSON #### [facility] [address] [address] [address] Les Bryan T3U 31.0 % Normal 30.0-39.0 [facility] Comment on above: Performed By: #### BARBER STEVENSONRO #### [facility] [address] [place] [address] Dr. Les Bryan T4 [Mass/Vol] 6.70 ug/dL Normal 4.80-13.90 [facility] Comment on above: Result Comment: T4 t esting performed by [facility] Performed By: #### RICARDO STEVENSON #### [facility] [address] [place] [address] Dr. Les Bryan GLYCOHEMOGLOBIN A1Con 2021 ADA RECOMMENDATION SEE BELOW Normal [facility] Comment on above: Result Comment: ADA RECOMMENDED LIMIT 4.0 - 6.0 ADA THERAPEUTIC TARGET < 7.0 ACTION SUGGESTED > 7.0 Performed By: #### 4 [id number] #### [facility] [address] [place] [address] Dr. Les Bryan Glucose [Mass/Vol] 120 mg/dL Normal [facility] Comment on above: Performed By: #### 4 [id number] #### [facility] [address] [place] [address] Dr. Les Bryan HbA1c (Bld) [Mass fraction] 5.8 % Normal 4.5-6.2 [facility] Comment on above: Performed By: #### 4 [id number] #### [facility] [address] [place] [address] Dr. Les Bryan IRONon 04-05-2022 Iron [Mass/Vol] 105.0 ug/dL Normal 50.0-170.0 [facility] Comment on above: Performed By: #### RICARDO STEVENSON #### [facility] [address] [place] [address] Dr. Les Bryan LIPID PROFILEon 04-05-2022 CHOL-HDL RATIO NORM SEE BELOW Normal [facility] Comment on above: Result Comment: 3.3 - 4.4 LOW RISK 4.4 - 7.1 AVERAGE RISK 7.1 - 11.0 MODERATE RISK >11.0 HIGH RISK Performed By: #### RICARDO STEVENSON #### [facility] [address] [place] [address] Dr. Les Bryan Cholesterol [Mass/Vol] 217 mg/dL Critically high <=200 [facility] Comment on above: Performed By: #### RICARDO STEVENSON #### [facility] [address] [place] [address] Dr. Les Bryan Cholesterol in HDL [Mass/Vol] 49 mg/dL Normal 40-60 [facility] Comment on above: Performed By: #### RICARDO STEVENSON #### [facility] [address] [place] [address] Dr. Les Bryan Cholesterol in LDL [Mass/Vol] 128.2 mg/dL Normal [facility] Comment on above: Performed By: #### RICARDO STEVENSON #### [facility] [address] [place] [address] Dr. Les Bryan Cholesterol.total/Ch olesterol in HDL [Mass ratio] 4.4 {ratio} Normal [facility] Comment on above: Performed By: #### RICARDO STEVENSON #### [facility] [address] [place] [address] Dr. Les Bryan HDL NORMAL > or = 60 mg/dl - LOW CARDIOVASCULAR RISK <40 mg/dl - HIGH CARDIOVASCULAR RISK Normal [facility] Comment on above: Performed By: #### BARBER STEVENSONRO #### [facility] [address] [place] [address] Dr. Les Bryan LDL CALC NORMAL SEE BELOW Normal [facility] Comment on above: Result Comment: <100 mg/dl OPTIMAL 100 - 129 mg/dl NEAR OR ABOVE OPTIMAL 130 - 159 mg/dl BORDERLINE HIGH 160 - 189 mg/dl HIGH >190 mg/dl VERY HIGH Performed By: #### BARBER STEVENSONRO #### [facility] [address] [place] [address] Dr. Les Bryan Triglyceride [Mass/Vol] 199 mg/dL Critically high <=150 [facility] Comment on above: Performed By: #### RICARDO STEVENSON #### [facility] [address] [place] [address] Dr. Les Bryan VLDL CALC 39.8 mg/dL Normal [facility] Comment on above: Performed By: #### RICARDO STEVNESON #### [facility] [address] [place] [address] Dr. Les Bryan PROF 14(COMP METB)on 022 Albumin [Mass/Vol] 3.8 g/dL Normal 3.4-5.0 [facility] Comment on above: Performed By: #### RICARDO STEVENSON #### [facility] [address] [place] [address] Dr. Les Bryan Albumin/Globulin [Mass ratio] 0.9 {ratio} Normal [facility] Comment on above: Performed By: #### RICARDO STEVENSON #### [facility] [address] [place] [address] Dr. Les Bryan ALP [Catalytic activity/Vol] 122 U/L Critically high 46-116 [facility] Comment on above: Performed By: #### RICARDO STEVENSON #### [facility] [address] [place] [address] Dr. Les Bryan ALT [Catalytic activity/Vol] 90 U/L Critically high 14-59 [facility] Comment on above: Performed By: #### RICARDO STEVENSON #### [facility] [address] [place] [address] Dr. Les Bryan Anion gap [Moles/Vol] 13.5 mmol/L Normal [facility] Comment on above: Performed By: #### RICARDO STEVENSON #### [facility] [address] [place] [address] Dr. Les Bryan AST [Catalytic activity/Vol] 63 U/L Critically high 15-37 [facility] Comment on above: Performed By: #### RICARDO STEVENSON #### [facility] [address] [place] [address] Dr. Les Bryan Bilirubin [Mass/Vol] 0.4 mg/dL Normal 0.2-1.0 [facility] Comment on above: Performed By: #### BARBER STEVENSONRO #### [facility] [address] [place] [address] Dr. Les Bryan Calcium [Mass/Vol] 9.3 mg/dL Normal 8.5-10.1 [facility] Comment on above: Performed By: #### Andi GUY UMICRO #### [facility] [address] [address] [address] Les Bryan Chloride [Moles/Vol] 103 mmol/L Normal 98-107 [facility] Comment on above: Performed By: #### Andi GUY UMICRO #### [facility] [address] [place] [address] Dr. Les Bryan CO2 [Moles/Vol] 24.6 mmol/L Normal 21.0-32.0 [facility] Comment on above: Performed By: #### Andi GUY UMICRO #### [facility] [address] [place] [address] Dr. Les Bryan Creatinine [Mass/Vol] 0.70 mg/dL Normal 0.55-1.02 [facility] Comment on above: Performed By: #### Andi GUY UMICRO #### [facility] [address] [place] [address] Dr. Les Bryan EGFR-AF BAHAMIAN >60 Normal >=60 [facility] Comment on above: Performed By: #### Andi GUY UMICRO #### [facility] [address] [place] [address] Dr. Les Bryan EGFR-NON AF BAHAMIAN >60 Normal >=60 [facility] Comment on above: Performed By: #### Andi GUY UMICRO #### [facility] [address] [place] [address] Dr. Les Bryan Globulin (S) [Mass/Vol] 4.1 g/dL Normal [facility] Comment on above: Performed By: #### Andi GUY UMICRO #### [facility] [address] [place] [address] Dr. Les Bryan Glucose [Mass/Vol] 110 mg/dL Critically high 74-106 [facility] Comment on above: Performed By: #### E LOKESHR, UMICRO #### [facility] [address] [place] [address] Dr. Les Bryan Potassium [Moles/Vol] 4.1 mmol/L Normal 3.5-5.1 [facility] Comment on above: Performed By: #### E RUR, UMICRO #### [facility] [address] [place] [address] Dr. Les Bryan Protein [Mass/Vol] 7.9 g/dL Normal 6.4-8.2 [facility] Comment on above: Performed By: #### E BROOKS, UMICRO #### [facility] [address] [place] [address] Dr. Les Bryan Sodium [Moles/Vol] 137 mmol/L Normal 136-145 [facility] Comment on above: Performed By: #### E BROOKS, UMICRO #### [facility] [address] [place] [address] Dr. Les Bryan Urea nitrogen [Mass/Vol] 9.0 mg/dL Normal 7.0-18.0 [facility] Comment on above: Performed By: #### E BROOKS, UMICRO #### [facility] [address] [place] [address] Dr. Les Bryan Urea nitrogen/Creatinine [Mass ratio] 12.9 mg/mg Normal [facility] Comment on above: Performed By: #### E BROOKS, UMICRO #### [facility] [address] [place] [address] Dr. Les Bryan TSHon 04-05-2022 TSH 3.572 uIU/mL Normal 0.358-3.740 [facility] Comment on above: Performed By: #### E LOKESHR, UMICRO #### [facility] [address] [place] [address] Dr. Les Bryan TSH RANGE SEE BELOW Normal [facility] Comment on above: Result Comment: <0.3 4 UIU/ml HYPERTHYROID 0.34-5.60 UIU/ml EUTHYROID >5.60 UIU/ml HYPOTHYROID Performed By: #### E RICARDO GUY #### [facility] [address] [place] [address] Dr. Lse Bryan XR KUB 1 VIEWon 02-27-2022 XR [...] AMANDA CASSIDY Date: 2022-02-27 15:05 Normal [facility] AMYLASEon 02-25-2022 Amylase [Catalytic activity/Vol] 34 U/L Normal 25-115 [facility] Comment on above: Performed By: #### 4 [id number] #### [facility] [address] [place] [address] Dr. Les Bryan CBC AUTO DIFFon 02-25-2022 BASO # 0.0 103/ul Normal 0.0-0.1 [facility] Comment on above: Performed By: #### C BC #### [facility] [address] [place] [address] Dr. Les Bryan Basophils/100 WBC (Bld) 0.4 % Normal 0.2-2.0 [facility] Comment on above: Performed By: #### C BC #### [facility] [address] [place] [address] Dr. Les Bryan EO # 0.3 103/ul Normal 0.0-0.7 [facility] Comment on above: Performed By: #### C BC #### [facility] [address] [address] [address] Les Bryan Eosinophils/100 WBC (Bld) 3.6 % Normal 0.9-7.0 [facility] Comment on above: Performed By: #### C BC #### [facility] [address] [place] [address] Dr. Les Bryan Erythrocyte distribution width (RBC) [Ratio] 13.1 % Normal 11.0-15.0 [facility] Comment on above: Performed By: #### C BC #### [facility] [address] [place] [address] Dr. Les Bryan Hematocrit (Bld) [Volume fraction] 40.6 % Normal 36.0-48.0 [facility] Comment on above: Performed By: #### C BC #### [facility] [address] [place] [address] Dr. Les Bryan Hemoglobin (Bld) [Mass/Vol] 13.3 g/dL Normal 12.0-16.0 [facility] Comment on above: Performed By: #### C BC #### [facility] [address] [place] [address] Dr. Les Bryan IG # 0.06 10e3/ul Critically high 0.00-0.03 [facility] Comment on above: Performed By: #### C BC #### [facility] [address] [place] [address] Dr. Les Bryan IG % 0.6 % Critically high 0.0-0.5 [facility] Comment on above: Performed By: #### C BC #### [facility] [address] [place] [address] Dr. Les Bryan LYMPH # 3.6 103/ul Normal 1.2-3.8 [facility] Comment on above: Performed By: #### C BC #### [facility] [address] [place] [address] Dr. Les Bryan Lymphocytes/100 WBC (Bld) 38.2 % Normal 20.5-60.0 [facility] Comment on above: Performed By: #### C BC #### [facility] [address] [place] [address] Dr. Les Bryan MANUAL DIFF REQ NO Normal [facility] Comment on above: Performed By: #### C BC #### [facility] [address] [place] [address] Dr. Les Bryan MCH (RBC) [Entitic mass] 29.7 pg Normal 26.7-34.0 [facility] Comment on above: Performed By: #### C BC #### [facility] [address] [place] [address] Dr. Les Bryan MCHC (RBC) [Mass/Vol] 32.8 g/dL Normal 29.9-35.2 [facility] Comment on above: Performed By: #### C BC #### [facility] [address] [place] [address] Dr. Les Bryan MCV (RBC) [Entitic vol] 90.6 fL Normal 81.0-99.0 [facility] Comment on above: Performed By: #### C BC #### [facility] [address] [place] [address] Dr. Les Bryan MONO # 0.5 103/ul Normal 0.3-0.8 [facility] Comment on above: Performed By: #### C BC #### [facility] [address] [place] [address] Dr. Les Bryan Monocytes/100 WBC (Bld) 5.4 % Normal 1.7-12.0 [facility] Comment on above: Performed By: #### C BC #### [facility] [address] [place] [address] Dr. Les Bryan NEUT # 4.9 103/ul Normal 1.4-6.5 [facility] Comment on above: Performed By: #### C BC #### [facility] [address] [place] [address] Dr. Les Bryan Neutrophils/100 WBC (Bld) 51.8 % Normal 43.0-75.0 [facility] Comment on above: Performed By: #### C BC #### [facility] [address] [place] [address] Dr. Les Bryan Platelet mean volume (Bld) [Entitic vol] 9.2 fL Critically low 9.5-13.5 [facility] Comment on above: Performed By: #### C BC #### [facility] [address] [place] [address] Dr. Les Bryan PLT 335 103/ul Normal 150-450 [facility] Comment on above: Performed By: #### C BC #### [facility] [address] [place] [address] Dr. Les Bryan RBC 4.48 106/ul Normal 4.20-5.40 [facility] Comment on above: Performed By: #### C BC #### [facility] [address] [place] [address] Dr. Les Bryan WBC 9.4 103/ul Normal 4.0-11.0 [facility] Comment on above: Performed By: #### C BC #### [facility] [address] [place] [address] ABD/PELVIS WO CONon [...] by: IWONA BRITT Date: 2022-02-25 19:05 Normal [facility] ER URINE PROFILEon 2 Bilirubin Ql (U) Negative Normal NEGATIVE [facility] Comment on above: Performed By: #### Andi GUY UMICRO #### [facility] [address] [place] [address] Dr. Les Bryan Clarity (U) CLEAR Normal CLEAR [facility] Comment on above: Performed By: #### Andi GUY UMICRO #### [facility] [address] [address] [address] Les Bryan Color (U) YELLOW Normal YELLOW [facility] Comment on above: Performed By: #### Andi GUY UMICRO #### [facility] [address] [address] [address] Les Bryan ERUCHANDLERD A micrscopic examination will be performed if indicated. Normal [facility] Comment on above: Performed By: #### Andi GUY UMICRO #### [facility] [address] [address] [address] Les Bryan Glucose Ql (U) Negative Normal NEGATIVE [facility] Comment on above: Performed By: #### E RUR UMICRO #### [facility] [address] [place] [address] Dr. Les Bryan Hemoglobin Ql (U) LARGE Abnormal NEGATIVE [facility] Comment on above: Performed By: #### E RUR, UMICRO #### [facility] [address] [place] [address] Dr. Les Bryan Ketones Ql (U) Negative Normal NEGATIVE [facility] Comment on above: Performed By: #### BARBER STEVENSONRO #### [facility] [address] [place] [address] Dr. Les Bryan LEUKOCYTES TRACE Abnormal NEGATIVE [facility] Comment on above: Performed By: #### BARBER STEVENSONRO #### [facility] [address] [place] [address] Dr. Les Bryan Nitrite Ql (U) Negative Normal NEGATIVE [facility] Comment on above: Performed By: #### BARBER STEVENSONRO #### [facility] [address] [place] [address] Dr. Les Bryan pH (U) 7.0 [pH] Normal 5-9 [facility] Comment on above: Performed By: #### BARBER STEVENSONRO #### [facility] [address] [place] [address] Dr. Les Bryan Protein (U) [Mass/Vol] 30 mg/dL Abnormal NEGATIVE/ TRACE [facility] Comment on above: Performed By: #### BARBER STVEENSONRO #### [facility] [address] [place] [address] Dr. Les Bryan SPEC GRAVITY 1.025 Normal 1.005-<=1.025 [facility] Comment on above: Performed By: #### BARBER STEVENSONRO #### [facility] [address] [place] [address] Dr. Les Bryan UR MICRO IND INDICATED Normal [facility] Comment on above: Performed By: #### BARBER STEVENSONRO #### [facility] [address] [place] [address] Dr. Les Bryan Urobilinogen Qn (U) 0.2 {Racquel'U}/dL Normal 0.2 - 1. 0 [facility] Comment on above: Performed By: #### RICARDO STEVENSON #### [facility] [address] [place] [address] Dr. Les Bryan LIPASEon 02-25-2022 Lipase [Catalytic activity/Vol] 82.0 U/L Normal 73.0-393.0 [facility] Comment on above: Performed By: #### 4 [id number] #### [facility] [address] [place] [address] Dr. Les Bryan PROF 14(COMP METB)on Albumin [Mass/Vol] 3.7 g/dL Normal 3.4-5.0 [facility] Comment on above: Performed By: #### 4 [id number] #### [facility] [address] [place] [address] Dr. Les Bryan Albumin/Globulin [Mass ratio] 0.9 {ratio} Normal [facility] Comment on above: Performed By: #### 4 [id number] #### [facility] [address] [place] [address] Dr. Les Bryan ALP [Catalytic activity/Vol] 129 U/L Critically high 46-116 [facility] Comment on above: Performed By: #### 4 [id number] #### [facility] [address] [place] [address] Dr. Les Bryan ALT [Catalytic activity/Vol] 86 U/L Critically high 14-59 [facility] Comment on above: Performed By: #### 4 [id number] #### [facility] [address] [place] [address] Dr. Les Bryan Anion gap [Moles/Vol] 15.3 mmol/L Normal [facility] Comment on above: Performed By: #### 4 [id number] #### [facility] [address] [place] [address] Dr. Les Bryan AST [Catalytic activity/Vol] 51 U/L Critically high 15-37 [facility] Comment on above: Performed By: #### 4 [id number] #### [facility] [address] [place] [address] Dr. Les Bryan Bilirubin [Mass/Vol] 0.2 mg/dL Normal 0.2-1.0 [facility] Comment on above: Performed By: #### 4 [id number] #### [facility] [address] [address] [address] Les Bryan Calcium [Mass/Vol] 8.4 mg/dL Critically low 8.5-10.1 [facility] Comment on above: Performed By: #### 4 [id number] #### [facility] [address] [place] [address] Dr. Les Bryan Chloride [Moles/Vol] 103 mmol/L Normal 98-107 [facility] Comment on above: Performed By: #### 4 [id number] #### [facility] [address] [place] [address] Dr. Les Bryan CO2 [Moles/Vol] 26.2 mmol/L Normal 21.0-32.0 [facility] Comment on above: Performed By: #### 4 [id number] #### [facility] [address] [place] [address] Dr. Les Bryan Creatinine [Mass/Vol] 0.72 mg/dL Normal 0.55-1.02 [facility] Comment on above: Performed By: #### 4 [id number] #### [facility] [address] [place] [address] Dr. Les Bryan EGFR-AF BAHAMIAN >60 Normal >=60 [facility] Comment on above: Performed By: #### 4 [id number] #### [facility] [address] [place] [address] Dr. Les Bryan EGFR-NON AF BAHAMIAN >60 Normal >=60 [facility] Comment on above: Performed By: #### [id number] #### [facility] [address] [place] [address] Dr. Les Bryan Globulin (S) [Mass/Vol] 4.2 g/dL Normal [facility] Comment on above: Performed By: #### [id number] #### [facility] [address] [place] [address] Dr. Les Bryan Glucose [Mass/Vol] 121 mg/dL Critically high 74-106 T [facility] Comment on above: Performed By: #### 4 [id number] #### [facility] [address] [place] [address] Dr. Les Bryan Potassium [Moles/Vol] 3.5 mmol/L Normal 3.5-5.1 [facility] Comment on above: Performed By: #### 4 [id number] #### [facility] [address] [place] [address] Dr. Les Bryan Protein [Mass/Vol] 7.9 g/dL Normal 6.1-8.2 [facility] Comment on above: Performed By: #### 4 [id number] #### [facility] [address] [place] [address] Dr. Les Bryan Sodium [Moles/Vol] 141 mmol/L Normal 136-145 [facility] Comment on above: Performed By: #### 4 [id number] #### [facility] [address] [place] [address] Dr. Les Bryan Urea nitrogen [Mass/Vol] 14.0 mg/dL Normal 7.0-18.0 [facility] Comment on above: Performed By: #### 4 [id number] #### [facility] [address] [place] [address] Dr. Les Bryan Urea nitrogen/Creatinine [Mass ratio] 19.4 mg/mg Normal [facility] Comment on above: Performed By: #### 4 [id number] #### [facility] [address] [place] [address] Dr. Les Bryan URINE MICROSCOPIC ONLYon BACTERIA TRACE Abnormal NONE SEEN [facility] Comment on above: Performed By: #### Andi GUY UMICRO #### [facility] [address] [place] [address] Dr. Les Bryan Bacteria identified Cx Nom (U) NOT INDICATED Normal [facility] Comment on above: Performed By: #### Andi GUY UMICRO #### [facility] [address] [place] [address] Dr. Les Bryan CAST NONE SEEN Normal NONE SEEN [facility] Comment on above: Performed By: #### Andi GUY UMICRO #### [facility] [address] [address] [address] Les Bryan Crystals LM Nom (Urine sed) NONE SEEN Normal NONE SEEN [facility] Comment on above: Performed By: #### RICARDO STEVENSON #### [facility] [address] [address] [address] Les Bryan Epithelial cells LM Ql (Urine sed) MODERATE Abnormal NONE SEEN /RARE [facility] Comment on above: Performed By: #### RICARDO STEVENSON #### [facility] [address] [place] [address] Dr. Les Bryan MUCOUS NONE SEEN Normal NONE SEEN [facility] Comment on above: Performed By: #### RICARDO STEVENSON #### [facility] [address] [place] [address] Dr. Les Bryan RBC 20-50 Abnormal 0-2 [facility] Comment on above: Result Comment: cren ated RBCs Performed By: #### RICARDO STEVENSON #### [facility] [address] [place] [address] Dr. Les Bryan WBC 2-5 Abnormal NONE SEEN [facility] Comment on above: Performed By: #### RICARDO STEVENSON #### [facility] [address] [place] [address] Dr. Les Bryan Vital Signs Date Time Vital Sign Value Performing Clinician Facility 12-02-2024 14:40-0500 Blood Pressure Location Jl FREDERICK [facility] [place] 12-02-2024 14:40-0500 Diastolic blood pressure 106 mm[Hg] Jl FREDERICK [facility] [place] 12-02-2024 14:40-0500 Heart rate 72 /min Jl FREDERICK [facility] [place] 12-02-2024 14:40-0500 Respiratory rate 16 /min Jl FREDERICK [facility] [place] 12-02-2024 14:40-0500 Systolic blood pressure 142 mm[Hg] Jl FREDERICK [facility] [place] 09-13-2023 10:30-0500 Body height 162.56 cm Shae Love Other [email or web address] Other 09-13-2023 10:30-0500 Body mass index (BMI) [Ratio] 23.14 kg/m2 Shae Love Other [email or web address] Other 09-13-2023 10:30-0500 Body temperature 98.4 [degF] Shae Love Other [email or web address] Other 09-13-2023 10:30-0500 Body weight 61.15 kg Shae Love Other [email or web address] Other 09-13-2023 10:30-0500 Respiratory rate 18 /min Shae Love Other [email or web address] Other 09-13-2023 10:30-0500 SaO2% (BldA) [Mass fraction] 99 % Shae Love Other [email or web address] Other 04-21-2022 09:07-0400 Blood Pressure Location Jl FREDERICK [facility] [place] 04-21-2022 09:07-0400 Diastolic blood pressure 86 mm[Hg] Jl BRIDGESL [facility] [place] 04-21-2022 09:07-0400 Heart rate 92 /min Jl BRIDGESL [facility] [place] 04-21-2022 09:07-0400 Respiratory rate 16 /min Jl YOLY [facility] [place] 04-21-2022 09:07-0400 Systolic blood pressure 127 mm[Hg] Jl FREDERICK [facility] [place] Encounters Encounter Date Encounter Type Care Provider Facility Start: 12-02-2024 End: 12-02-2024 ambulatory Jl FREDERICK Facility: [facility] Start: 12-02-2024 End: 12-02-2024 Patient encounter procedure Jl FREDERICK [facility] [place] Start: 06-12-2024 End: 06-12-2024 Emergency department patient visit [facility] Start: 09-13-2023 Office outpatient ne w 20 minutes Shae Love [facility] Start: 09-13-2023 End: 09-13-2023 ambulatory Shae Love [facility] [employer] Other Start: 09-13-2023 End: 09-13-2023 Patient encounter procedure ROD FILLER Shae Love Work Phone: [facility] Work Phone: [...] End: 04-21-2022 Patient encounter procedure Jl FREDERICK [facility] [place] Start: 04-20-[address] ANGELICA DE Facility :[facility] Start: 04-17-2022 End: 04-18-[address] ANGELICA DE Facility:[facility] Start: 04-05-2022 End: 04-06-[address] ANGELICA DE Facility:[facility] Start: 02-27-2022 End: 02-28-[address] ANGELICA DE Facility:[facility] Start: 02-25-2022 End: 02-25-2022 ambulatory EMILY MCDERMOTT Facility:[facility] Procedures Date Procedure Procedure Detail Performing Clinician Start: 09-13-2023 Radiologic examinati on of knee ROD FILLER Shae Love Work Phone: Start: 05-03-2022 Excision of dermatofibroma Jl FREDERICK Comment on above: left ankle Start: 07-08-2015 laparoscopic cholecy stectomy with intraoperative cholangiogram Jl FREDERICK Abdominal hysterectomy Sebastian munguia YOLY Bilateral complete salpingectomy Jl FREDERICK Diagnostic laparoscopy Sebastian nilda FREDERICK Loop electrosurgical excision procedure Jl FREDERICK Payers Date Payer Category Payer Unknown [id number] 1980 Unknown [id number] 2.16.84 [id number] 1979 Unknown [id number] 2.16.84 [id number] 1979 Unknown [id number] 2.16.84 0.1.157828.3.579.2.593 1979 Unknown [id number] 2.16.84 0.1.278555.3.579.2.593 1979 Unknown [id number] 2.16.84 0.1.803123.3.579.2.593 1979 Unknown [id number] 2.16.84 0.1.755721.3.579.2.593 1979 Unknown [id number] 2.16.84 0.1.628599.3.579.2.593 1979 Unknown [id number] 2.16.84 0.1.068208.3.579.2.593 1979 Unknown [id number] 2.16.84 0.1.670599.3.579.2.593 1979 Unknown [id number] 2.16.8 40.1.390739.3.579.2.173 1979 Unknown [id number] 2.16.8 [id number] 1960 Self-pay 1960 Unknown [id number] Unknown [id number] 2.16.8 [id number] Social History Date Type Detail Facility Start: 04-21-2022 Tobacco smoking status Ex-smoker (fi nding) [facility] Tobacco smoking status Never [facility] Sex Assigned At [facility] Start: 1980 Sex Assigned At Female [facility] Start: 12-02-2024 Tobacco smoking status Heavy t obacco smoker (finding) [facility] Functional Status Date Assessment Result Facility 12-02-2024 Functional Status N/A [facility] 04-21-2022 Functional Status N/A [facility] [place] Clinical Note 12-02-2024 Note [...] Mother. Primary malignant neoplasm of bladder: Father. [facility] Comment on above: Result Comment: Elec tronically [...] understanding and is agreeable to treatment plan [email or web address] Other Evaluation + Plan note Note Date & Type Note Facility Evaluation + Plan note Future Appointments Appointment Date:05/03/2022 03:00:00 PM Scheduled Provider:Jl FREDERICK MD Location:[facility] Appointment Type:GS Procedure 30 [facility] [place] Evaluation + Plan note Note Date & Type Note Facility Evaluation + Plan note Future Appointments Appointment Date:05/12/2022 03:40:00 PM Scheduled Provider:Jl FREDERICK MD Location:[facility] Appointment Type:GS Post Op 15 [facility] [place] Evaluation note Note Date & Type Note Facility Evaluation note No assessment information availa [facility] Work Phone: History general Narrative - Reported Note Date & Type Note Facility History general Narrative - Reported Type Medical History Anxiety disorder Medical History chronic depression Medical History thyriod Surgical History LEAP [email or web address] Other Hospital course Narrative Note Date & Type Note Facility Hospital course Narrative No data available for this section [facility] [place] [facility] Discharge instructions Note Date & Type Note Facility Hospital Discharge instructions No data available for this section [facility] [place] Progress note Note Date & Type Note Facility Progress note No data available for this section [facility] [place] Summary Purpose Family History No Family History [...] and content) DATE CREATED AUTHOR 10/20/2022 [facility] DATE CREATED AUTHOR AUTHOR'S ORGANIZ ATION 12/07/2023 [facility] DATE CREATED AUTHOR AUTHOR'S ORGANIZ ATION 06/15/2024 [facility] DATE CREATED AUTHOR AUTHOR'S ORGANIZ ATION 12/04/2024 [facility] REASON FOR VISIT (unrecogniz ed section [...] BE BASED ON THE PRIMARY CLINICAL RECORDS. [employer] provides no warranty or guarantee of the accuracy or completeness of information in this document.
== END 2025-01-07 15:17 | disposition home or self-care (01) ==
LOC: WC 15:17
PROVIDERS: PCP Family Medicine; Visit Provider Physician Assistant
DX: L97.322 Non-pressure chronic ulcer of left ankle with fat layer exposed (principal)
CPT/HCPCS: G0463

== ENCOUNTER 2025-01-24 10:11 | Outpatient (OUT) | payer BC, SELFPAY ==
--- OUTSIDE RECORDS SUMMARY | 2025-01-24 10:15 | XMS_ITS | CCD ---
Author Organization [facility]iniSyn[facility] Care Team Providers Care Biology Laboratory Assistant Name Role Phone Angelica De Primary Care Physician [phone] DR ANGELICA DE Primary Care Unavailable BEA [...] Care Unavailable JEREMÍAS, DR DOMINGUEZ Attending Unavailable DWAINY, DR DOMINGUEZ Admitting Unavailable DWAINY, DR DOMINGUEZ Primary Care Unavailable JEREMÍAS, DR DOMINGUEZ Consulting Unavailable JEREMÍAS, DR DOMINGUEZ Attending Unavailable JEREMÍAS, DR DOMINGUEZ Admitting Unavailable JEREMÍAS, DR DOMINGUEZ Primary Care Unavailable JEREMÍAS, DR DOMINGUEZ Consulting Unavailable JEREMÍAS, DR DOMINGUEZ Attending Unavailable DWAINY, DR DOMINGUEZ Admitting Unavailable JEREMÍAS, DR DOMINGUEZ [...] Shae Love Unavailable RUBY Love Attending Provider [phone] Shae Love Attending Unavailable Shae Love Admitting Unavailable Jl FREDERICK Attending Unavailable Corky Ta DPM Attending Unava ilable Allergies Allergy Classification Reported Allergen(s) Allergy Type Date of Onset Reaction(s) Facility (7 sources) Latex; Translations: [Latex] Drug allergy 3 Eruption of skin (disorder), rash [facility] [place] (6 sources) Sulfamethoxazole / Trimethoprim; Translations: [sulfamethoxazole-tr imethoprim] Drug Allergy Weal (disorder), hives [facility] (2 sources) natural latex rubber Drug allergy (disorder) [facility] Repository (2 sources) Sulfamethoxazole / Trimethoprim Drug Allergy [facility] Repository (1 source) Sulfamethoxazole Drug Allergy 3 [facility] Repository (1 source) Trimethoprim Drug Allergy 3 [facility] Repository Medications Current Medications Medication Drug [...] Drug Class(es) Dates Sig (Normalized) Sig (Original) [place] (1 source) [place] Not- Taking Problems Active Problems Problem Classification [...] Test Name Value Interpretation Reference Range Facility C ANAon 01-15-2025 C AYAD ------- Final No anaerobic growth after 72 hrs. Normal [facility] Comment on above: Performed By: #### A NAC #### [address] [address] C [place] 01-14-2025 C Wound ------- Final No growth at 48 hours. Normal [facility] Comment on above: Performed By: #### W DC #### [address] [address] OR Trackon 01-12-2025 Specimens Received From [facility] Comment on above: Performed By: #### O [facility] Tracking Order #### [facility] [address] [facility] [place] [address] Ambulatory Visit Summaryon 0 12-02-2024 Ambulatory Visit Summary Ambulatory Visit Summary JOSEPHINE HERNDON :1980 Visit Date:12/02/2024 Ambulatory Visit Instructions Your Diagnosis Subcutaneous nodule of left lower extremity Tests Performed US Extremity Non-Vascular Limited Left -- Results Pending -- Please visit your patient portal for your results or contact your primary care physician. Your Care Team Attending Physician - YOLY [...] for choosing us for your care. Normal [facility] Drugs of Abuse, S/Jm 2023 Amphetamines, S/P Negative Normal Cutoff 20 [facility] Comment on above: Performed By: #### A DAU9S #### [facility] [address] [place] [address] Resource Development Manager: Trey Carroll MD #### HEATHER CDP, MG #### [facility] [address] [place] [address] Resource Development Manager: Belia Manjarrez MD Barbiturates, S/P Negative Normal Cutoff 50 [facility] Comment on above: Performed By: #### A DAU9S #### [facility] [address] [place] [address] Resource Development Manager: Trey Carroll MD #### CP CDP, MG #### [facility] [address] [place] [address] Resource Development Manager: Belia Manjarrez MD Benzodiazepines, S/P Negative Normal Cutoff 50 [facility] Comment on above: Performed By: #### A DAU9S #### [facility] [address] [place] [address] Resource Development Manager: Trey Carroll MD #### CP, CDP, MG #### [facility] [address] [place] [address] Resource Development Manager: Belia Manjarrez MD Buprenorphine, S/P Negative Normal Cutoff 1 [facility] Comment on above: Performed By: #### A DAU9S #### [facility] [address] [place] [address] Resource Development Manager: Trey Carroll MD #### CP, CDP, MG #### [facility] [address] [place] [address] Resource Development Manager: Belia Manjarrez MD Cocaine, Serum/Plas Negative Normal Cutoff 20 [facility] Comment on above: Performed By: #### A DAU9S #### [facility] [address] [place] [address] Resource Development Manager: Trey Carroll MD #### CP, CDP, MG #### [facility] [address] [place] [address] Resource Development Manager: Belia Manjarrez MD Comment See Note Normal [facility] Comment on above: Result Comment: (NOT [...] developed and its performance characteristics determined by [facility] [employer]. It has not been cleared or approved by the [place] Food and Drug Administration. This test was performed in a CLIA certified laboratory and is intended for clinical purposes. Performed By: [facility] [employer] [address] [place] [id number] Diesel Mechanic Apprentice: Trace Vazquez MD, PhD CLIA Number: [id number] Performed By: #### A DAU9S #### [address] [address] Resource Development Manager: Trey Carroll MD #### CP, CDP, MG #### [address] [place] [address] Resource Development Manager: Belia Manjarrez MD Methadone, S/P Negative Normal Cutoff 25 [facility] Comment on above: Performed By: #### A DAU9S #### [address] [address] Resource Development Manager: Trey Carroll MD #### CP, CDP, MG #### [address] [place] [address] Resource Development Manager: Belia Manjarrez MD Methamphetamine,S/P Negative Normal Cutoff 20 [facility] Comment on above: Performed By: #### A DAU9S #### [address] [address] Resource Development Manager: Trey Carroll MD #### CP, CDP, MG #### [facility] [address] [place] [address] Resource Development Manager: Belia Manjarrez MD Opiates, Serum/Plas Negative Normal Cutoff 20 [facility] Comment on above: Performed By: #### A DAU9S #### [address] [address] Resource Development Manager: Trey Carroll MD #### CP, CDP, MG #### [facility] [address] [place] [address] Resource Development Manager: Belia Manjarrez MD Oxycodone, S/P Negative Normal Cutoff 20 [facility] Comment on above: Performed By: #### A DAU9S #### [facility] [address] [place] [address] Resource Development Manager: Trye Carroll MD #### CP, CDP, MG #### [facility] [address] [place] [address] Resource Development Manager: Belia Manjarrez MD Phencyclidine, S/P Negative Normal Cutoff 10 [facility] Comment on above: Performed By: #### A DAU9S #### [facility] [address] [place] [address] Resource Development Manager: Trey Carroll MD #### CP, CDP, MG #### [facility] [address] [place] [address] Resource Development Manager: Belia Manjarrez MD THC, Serum/Plasma Negative Normal Cutoff 20 [facility] Comment on above: Performed By: #### A DAU9S #### [facility] [address] [place] [address] Resource Development Manager: Trey Carroll MD #### CP, CDP, MG #### [facility] [address] [place] [address] Resource Development Manager: Belia Manjarrez MD CBC with Diffon 06-12-2024 Abs. Basophil 0.04 k/uL Normal 0.00-0.20 [facility] Comment on above: Performed By: #### A DAU9S #### [facility] [address] [place] [address] Resource Development Manager: Trey Carroll MD #### CP, CDP, MG #### [facility] [address] [place] [address] Resource Development Manager: Belia Manjarrez MD Abs.Imm.Granulocyte 0.06 k/uL Normal 0.00-0.30 [facility] Comment on above: Performed By: #### A DAU9S #### [facility] [address] [place] [address] Resource Development Manager: Trey Carroll MD #### CP, CDP, MG #### [facility] [address] [place] [address] Resource Development Manager: Belia Manjarrez MD Abs.Neutrophil (Seg) 6.02 k/uL Normal 1.50-8.10 [facility] Comment on above: Performed By: #### A DAU9S #### [facility] [address] [place], [place] [id number] Resource Development Manager: Trey Carroll MD #### CP, CDP, MG #### [facility] [address] [place] [address] [place] [address] Resource Development Manager: Belia Manjarrez MD Basophils/100 WBC (Bld) 0 % Normal 0-2 [facility] Comment on above: Performed By: #### A DAU9S #### [facility] [address] [place], [place] [id number] Resource Development Manager: Trey Carroll MD #### CP, CDP, MG #### [facility] [address] [place] [address] Resource Development Manager: Belia Manjarrez MD Eosinophils (Bld) [#/Vol] 0.16 10*3/uL Normal 0.00-0.44 [facility] Comment on above: Performed By: #### A DAU9S #### [facility] [address] [place] [address] Resource Development Manager: Trey Carroll MD #### CP, CDP, MG #### [facility] [address] [place] [address] [place] [address] Resource Development Manager: Belia Manjarrez MD Eosinophils/100 WBC (Bld) 2 % Normal 1-4 [facility] Comment on above: Performed By: #### A DAU9S #### [facility] [address] [place] [address] Resource Development Manager: Trey Carroll MD #### CP, CDP, MG #### [facility] [address] [place] [address] [place] [address] Resource Development Manager: Belia Manjarrez MD Erythrocyte distribution width (RBC) [Ratio] 13.3 % Normal 11.8-14.4 [facility] Comment on above: Performed By: #### A DAU9S #### [address] [id number] Resource Development Manager: Trey Carroll MD #### HEATHER, CDP, MG #### [address] [place] [address] Resource Development Manager: Belia Manjarrez MD Hematocrit (Bld) [Volume fraction] 41.0 % Normal 36.3-47.1 [facility] Comment on above: Performed By: #### A DAU9S #### [facility] [address] [place], [place] [id number] Resource Development Manager: Trey Carroll MD #### HEATHER, CDP, MG #### [facility] [address] [place] [address] [place] [address] Resource Development Manager: Belia Manjarrez MD Hemoglobin (Bld) [Mass/Vol] 14.1 g/dL Normal 11.9-15.1 [facility] Comment on above: Performed By: #### A DAU9S #### [facility] [address] [place], [place] [id number] Resource Development Manager: Trey Carroll MD #### CP, CDP, MG #### [facility] [address] [place] [address] Resource Development Manager: Belia Manjarrez MD Immature granulocytes/100 WBC (Bld) 1 % High 0 [facility] Comment on above: Performed By: #### A DAU9S #### [facility] [address] [place] [address] Resource Development Manager: Trey Carroll MD #### CP, CDP, MG #### [facility] [address] [place] [address] Resource Development Manager: Belai Manjarrez MD Lymphocytes (Bld) [#/Vol] 3.39 10*3/uL Normal 1.10-3.70 [facility] Comment on above: Performed By: #### A DAU9S #### [address] [id number] Resource Development Manager: Trey Carroll MD #### CP, CDP, MG #### [facility] [address] [place] [address] Resource Development Manager: Belia Manjarrez MD Lymphocytes/100 WBC (Bld) 33 % Normal 24-43 [facility] Comment on above: Performed By: #### A DAU9S #### [facility] [address] [place] [address] Resource Development Manager: Trey Carroll MD #### CP, CDP, MG #### [facility] [address] [place], [place] [address] Resource Development Manager: Belia Manjarrez MD MCH (RBC) [Entitic mass] 30.9 pg Normal 25.2-33.5 [facility] Comment on above: Performed By: #### A DAU9S #### [facility] [address] [place] [address] Resource Development Manager: Trey Carroll MD #### CP, CDP, MG #### [facility] [address] [place] [address] Resource Development Manager: Belia Manjarrez MD MCHC (RBC) [Mass/Vol] 34.4 g/dL Normal 28.4-34.8 [facility] Comment on above: Performed By: #### A DAU9S #### [facility] [address] [place] [address] Resource Development Manager: Trey Carroll MD #### CP, CDP, MG #### [facility] [address] [place] [address] [place] [address] Resource Development Manager: Belia Manjarrez MD MCV (RBC) [Entitic vol] 89.9 fL Normal 82.6-102.9 [facility] Comment on above: Performed By: #### A DAU9S #### [facility] [address] [place], [place] [id number] Resource Development Manager: Trey Carroll MD #### HEATHER, CDP, MG #### [address] [place] [address] Resource Development Manager: Belia Manjarrez MD Monocytes (Bld) [#/Vol] 0.67 10*3/uL Normal 0.10-1.20 [facility] Comment on above: Performed By: #### A DAU9S #### [facility] [address] [place] [address] Resource Development Manager: Trey Carroll MD #### CP, CDP, MG #### [facility] [address] [place] [address] [place] [address] Resource Development Manager: Belia Manjarrez MD Monocytes/100 WBC (Bld) 7 % Normal 3-12 [facility] Comment on above: Performed By: #### A DAU9S #### [facility] [address] [place] [address] Resource Development Manager: Trey Carroll MD #### CP, CDP, MG #### [facility] [address] [place] [address] [place] [address] Resource Development Manager: Belia Manjarrez MD Neutrophil (Seg) 57 % Normal 36-65 [facility] Comment on above: Performed By: #### A DAU9S #### [facility] [address] [place], [place] [id number] Resource Development Manager: Trey Carroll MD #### CP, CDP, MG #### [facility] [address] [place] [address] Resource Development Manager: Belia Manjarrez MD NRBC Automated 0.0 per 100 WBC Normal 0.0 [facility] Comment on above: Performed By: #### A DAU9S #### [facility] [address] [place], [place] [id number] Resource Development Manager: Trey Carroll MD #### HEATHER CDP, MG #### [facility] [address] [place] [address] Resource Development Manager: Belia Manjarrez MD Platelet mean volume (Bld) [Entitic vol] 9.6 fL Normal 8.1-13.5 [facility] Comment on above: Performed By: #### A DAU9S #### [facility] [address] [place], [place] [id number] Resource Development Manager: Trey Carroll MD #### HEATHER, CDP, MG #### [facility] [address] [place] [address] Resource Development Manager: Belia Manjarrez MD Platelets (Bld) [#/Vol] 314 10*3/uL Normal 138-453 [facility] Comment on above: Performed By: #### A DAU9S #### [facility] [address] [place] [address] Resource Development Manager: Trey Carroll MD #### CP, CDP, MG #### [facility] [address] [place] [address] Resource Development Manager: Belia Manjarrez MD RBC (Bld) [#/Vol] 4.56 10*6/uL Normal 3.95-5.11 [facility] Comment on above: Performed By: #### A DAU9S #### [facility] [address] [place] [address] Resource Development Manager: Trey Carroll MD #### CP, CDP, MG #### [facility] [address] [place] [address] Resource Development Manager: Belia Manjarrez MD WBC (Bld) [#/Vol] 10.3 10*3/uL Normal 3.5-11.3 [facility] Comment on above: Performed By: #### A DAU9S #### [facility] [address] [place] [address] Resource Development Manager: Trey Carroll MD #### CP, CDP, MG #### [facility] [address] [place] [address] Resource Development Manager: Belia Manjarrez MD Comp Metabolic Profon 2023 Albumin [Mass/Vol] 4.4 g/dL Normal 3.5-5.2 [facility] Comment on above: Performed By: #### A DAU9S #### [facility] [address] [place] [address] Resource Development Manager: Trey Carroll MD #### CP, CDP, MG #### [facility] [address] [place] [address] Resource Development Manager: Belia Manjarrez MD Albumin/Glob Ratio 1.5 Normal 1.0-2.5 [facility] Comment on above: Performed By: #### A DAU9S #### [facility] [address] [place] [address] Resource Development Manager: Trey Carroll MD #### CP, CDP, MG #### [facility] [address] [place] [address] Resource Development Manager: Belia Manjarrez MD Alkaline Phos 108 U/L High 35-104 [facility] Comment on above: Performed By: #### A DAU9S #### [facility] [address] [place] [address] Resource Development Manager: Trey Carroll MD #### CP, CDP, MG #### [facility] [address] [place] [address] Resource Development Manager: Belia Manjarrez MD ALT [Catalytic activity/Vol] 46 U/L High 5-33 [facility] Comment on above: Performed By: #### A DAU9S #### [facility] [address] [place], [place] [id number] Resource Development Manager: Trey Carroll MD #### CP, CDP, MG #### [facility] [address] [place] [address] Resource Development Manager: Belia Manjarrez MD Anion gap [Moles/Vol] 10 mmol/L Normal 9-17 [facility] Comment on above: Performed By: #### A DAU9S #### [facility] [address] [place] [address] Resource Development Manager: Trey Carroll MD #### CP, CDP, MG #### [facility] [address] [place] [address] Resource Development Manager: Belia Manjarrez MD AST [Catalytic activity/Vol] 32 U/L High <32 [facility] Comment on above: Performed By: #### A DAU9S #### [facility] [address] [place] [address] Resource Development Manager: Trey Carroll MD #### CP, CDP, MG #### [facility] [address] [place] [address] Resource Development Manager: Belia Manjarrez MD Bilirubin [Mass/Vol] 0.4 mg/dL Normal 0.3-1.2 [facility] Comment on above: Performed By: #### A DAU9S #### [facility] [address] [place], [place] [address] Resource Development Manager: Trey Carroll MD #### CP, CDP, MG #### [facility] [address] [place] [address] Resource Development Manager: Belia Manjarrez MD BUN/CRE Ratio 12 Normal 9-20 [facility] Comment on above: Performed By: #### A DAU9S #### [facility] [address] [place], [place] [id number] Resource Development Manager: Trey Carroll MD #### CP, CDP, MG #### [facility] [address] [place] [address] Resource Development Manager: Belia Manjarrez MD Calcium [Mass/Vol] 9.1 mg/dL Normal 8.6-10.4 [facility] Comment on above: Performed By: #### A DAU9S #### [facility] [address] [place], [place] [id number] Resource Development Manager: Trey Carroll MD #### CP, CDP, MG #### [facility] [address] [place] [address] Resource Development Manager: Belia Manjarrez MD Chloride [Moles/Vol] 106 mmol/L Normal 98-107 [facility] Comment on above: Performed By: #### A DAU9S #### [facility] [address] [place] [address] Resource Development Manager: Trey Carroll MD #### CP, CDP, MG #### [facility] [address] [place] [address] Resource Development Manager: Belia Manjarrez MD CO2 [Moles/Vol] 26 mmol/L Normal 20-31 [facility] Comment on above: Performed By: #### A DAU9S #### [facility] [address] [place], [place] [id number] Resource Development Manager: Trey Carroll MD #### CP, CDP, MG #### [facility] [address] [place] [address] Resource Development Manager: Belia Manjarrez MD Creatinine [Mass/Vol] 0.5 mg/dL Normal 0.5-0.9 [facility] Comment on above: Performed By: #### A DAU9S #### [facility] [address] [place] [address] Resource Development Manager: Trey Carroll MD #### CP, CDP, MG #### [facility] [address] [place] [address] Resource Development Manager: Belia Manjarrez MD GFR/1.73 sq M.predicted among non-blacks MDRD (S/P/Bld) [Vol rate/Area] mL/min/{1.73_m2} Normal >60 [facility] Comment on above: Result Comment: These [...] #### A DAU9S #### [facility] [address] [place] [address] Resource Development Manager: Trey Carroll MD #### CP, CDP, MG #### [facility] [address] [place] [address] Resource Development Manager: Belia Manjarrez MD Glucose [Mass/Vol] 90 mg/dL Normal 70-99 [facility] Comment on above: Performed By: #### A DAU9S #### [facility] [address] [place] [address] Resource Development Manager: Trey Carroll MD #### CP, CDP, MG #### [facility] [address] [place] [address] Resource Development Manager: Belia Manjarrez MD Potassium [Moles/Vol] 4.2 mmol/L Normal 3.7-5.3 [facility] Comment on above: Performed By: #### A DAU9S #### [facility] [address] [place] [address] Resource Development Manager: Trey Carroll MD #### HEATHER, CDP, MG #### [facility] [address] [place] [address] Resource Development Manager: Belia Manjarrez MD Protein [Mass/Vol] 7.4 g/dL Normal 6.4-8.3 [facility] Comment on above: Performed By: #### A DAU9S #### [facility] [address] [place] [address] Resource Development Manager: Trey Carroll MD #### CP, CDP, MG #### [facility] [address] [place] [address] Resource Development Manager: Belia Manjarrez MD Sodium [Moles/Vol] 142 mmol/L Normal 135-144 [facility] Comment on above: Performed By: #### A DAU9S #### [facility] [address] [place] [address] Resource Development Manager: Trey Carroll MD #### CP, CDP, MG #### [facility] [address] [place] [address] Resource Development Manager: Belia Manjarrez MD Urea nitrogen [Mass/Vol] 6 mg/dL Normal 6-20 [facility] Comment on above: Performed By: #### A DAU9S #### [facility] [address] [place] [address] Resource Development Manager: Trey Carroll MD #### CP, CDP, MG #### [address] [place] [address] Resource Development Manager: Belia Manjarrez MD Drug Scr, Abuse, Uron 2023 Amphetamine(s),Ur Negative Normal NEG [facility] Comment on above: Result Comment: (Positive cutoff 1000 ng/mL) Performed By: #### D AU #### [address] [place], [place] [address] Resource Development Manager: Belia Manjarrez MD Barbiturate(s),Ur Negative Normal NEG [facility] Comment on above: Result Comment: (Positive cutoff 200 ng/mL) Performed By: #### D AU #### [address] [place] [address] Resource Development Manager: Belia Manjarrez MD Benzodiazepine(s) Negative Normal NEG [facility] Comment on above: Result Comment: (Positive cutoff 200 ng/mL) Performed By: #### D AU #### [address] [place], [place] [id number] Resource Development Manager: Belia Manjarrez MD Buprenorphrine, Ur Negative Normal NEG [facility] Comment on above: Result Comment: (Positive cutoff 5 ng/ml) Performed By: #### D AU #### [address] [place] [address] Resource Development Manager: Belia Manjarrez MD Cannabinoid(s),Ur Negative Normal NEG [facility] Comment on above: Result Comment: (Positive cutoff 50 ng/mL) Performed By: #### D AU #### [address] [place], [place] [id number] Resource Development Manager: Belia Manjarrez MD Cocaine Metabolite Negative Normal NEG [facility] Comment on above: Result Comment: (Positive cutoff 300 ng/mL) Performed By: #### D AU #### [facility] [address] [place] [address] [place] [place], [place] [id number] Resource Development Manager: Belia Manjarrez MD Fentanyl, Urine Negative Normal NEG [facility] Comment on above: Result Comment: (Positive cutoff 5 ng/ml) Performed By: #### D AU #### [address] [place], [place] [address] Resource Development Manager: Belia Manjarrez MD Interpretive Info Assay provides medical screening only. The absence of expected drug(s) and/or Normal [facility] Comment on above: Result Comment: meta bolite(s) may indicate diluted or adulterated urine, limitations of testing or timing of collection. Testing for legal purposes should be confirmed by another method. To request confirmation of test result, please call the lab within 7 days of sample submission. Performed By: #### D AU #### [address] [place] [address] Resource Development Manager: Belia Manjarrez MD Methadone Ql (U) Negative Normal NEG [facility] Comment on above: Result Comment: (Positive cutoff 300 ng/mL) Performed By: #### D AU #### [address] [place], [place] [id number] Resource Development Manager: Belia Manjarrez MD Opiate(s), Ur Negative Normal NEG [facility] Comment on above: Result Comment: (Positive cutoff 300 ng/mL) Performed By: #### D AU #### [address] [place], [place] 8[address]83 Resource Development Manager: Belia Manjarrez MD Oxycodone, Urine Negative Normal NEG [facility] Comment on above: Result Comment: (Positive cutoff 100 ng/mL) Performed By: #### D AU #### [address] [place], [place] 2687283 Resource Development Manager: Belia Manjarrez MD Phencyclidine, Ur Negative Normal NEG [facility] Comment on above: Result Comment: (Positive cutoff 25 ng/mL) Performed By: #### D AU #### [facility] [address] [place] [address] Resource Development Manager: Belia Manjarrez MD Magnesiumon 06-12-2024 Magnesium [Mass/Vol] 2.2 mg/dL Normal 1.6-2.6 [facility] Comment on above: Performed By: #### A DAU9S #### [facility] [address] [place] [address] Resource Development Manager: Trey Carroll MD #### CP, CDP, MG #### [facility] [address] [place] [address] Resource Development Manager: Belia Manjarrez MD XR knee LT 4V*on 09-13-2023 XR knee LT 4V* [facility] [employer] Other XR knee LT 4V* [facility] [employer] Other XR knee LT 4V* [address] [place] [address] [employer] Other XR knee LT 4V* [place] [address] No rt [employer] Other XR knee LT 4V* XRay Report [employer] Other XR knee LT 4V* Signed [employer] Other XR knee LT 4V* Patient: Josephine Herndon MR#: [id number] [place] [employer] Other XR knee LT 4V* 8 [employer] Other XR knee LT 4V* : 1980 Acct:[id number] [employer] Other XR knee LT 4V* Age/Sex: 43 / F ADM Date: 09/13/23 [employer] Other XR knee LT 4V* Loc: XDUCLY Room: Type: REG CLI [employer] Other XR knee LT 4V* Attending Dr: Shae Love APRN [employer] Other XR knee LT 4V* Copies to: Shae Love APRN [employer] Other XR knee LT 4V* Ordering Provider: Shae Love APRN [employer] Other XR knee LT 4V* Date of Service: 09/13/23 [employer] Other XR knee LT 4V* XR/XR knee LT 4V*: Injury [employer] Other XR knee LT 4V* XR knee LT 4V* 09/13/2023 10:51 AM [employer] Other XR knee LT 4V* SIGNS AND SYMPTOMS: Twisting injury to left knee with pain and swelling medially [employer] Other XR knee LT 4V* PROTOCOL: Frontal, lateral, and oblique radiographs of the left knee [employer] Other XR knee LT 4V* COMPARISON: None [employer] Other XR knee LT 4V* FINDINGS: [employer] Other XR knee LT 4V* The joint spaces are preserved. There is a moderate joint effusion. There is no evidence of fracture [employer] Other XR knee LT 4V* or dislocation. No significant soft tissue swelling. [employer] Other XR knee LT 4V* XR/XR knee LT 4V* [employer] Other XR knee LT 4V* IMPRESSION: [employer] Other XR knee LT 4V* No fracture. [employer] Other XR knee LT 4V* There is a moderate joint effusion. [employer] Other XR knee LT 4V* Impression dictated by: Donato Rockwell M.D.09/13/2023 11:19 AM [employer] Other XR knee LT 4V* Dictation Location: [place] [address] [employer] Other XR knee LT 4V* Transcribed By: PWS 09/13/23 1119 [employer] Other XR knee LT 4V* Dictated By: Donato Rockwell II, MD 09/13/23 1112 [employer] Other XR knee LT 4V* Signed By: [employer] Other XR knee LT 4V* 09/13/23 1114 [employer] Other XR knee LT 4V* [facility] [address] [place] [address] XRay Report Signed Patient: Josephine Herndon MR#: [id number] : 1980 Acct:[id number] Age/Sex: 43 / F ADM Date: 09/13/23 Loc: XDUCLY Room: Type: [facility] Attending Dr: Shae Love APRN [...] Donato Rockwell M.D.09/13/2023 11:19 AM Dictation Location: [place] [address] Transcribed By: [facility] 09/13/23 111 Dictated By: Donato Rockwell II, MD 09/13/23 1118 Signed By: 09/13/23 111 [facility] CT CHEST WO CONon 10-10-2022 CT [...] AMANDA CASSIDY Date: 2022-10-10 10:35 Normal [facility] Covid-19 PCR (CVDTB)on SARS-CoV-2 (COVID-19) RNA RAYMOND+probe Ql (Unsp spec) Not detected Normal NOT DETECTED [facility] Comment on above: Result Comment: When [...] for this test is supported by the [place] of Health and Human Service's declaration that [...] longer be used). Performed By: #### [facility] #### [facility] [address] [place] [address] [address] CHEST WO CONon [...] BELIA HENDRICKS Date: 2022-09-01 09:55 Normal [facility] MG MAMM SCREEN 3D GUSTAVO CADon 09-01-2022 MG MAMM SCREEN 3D GUSTAVO CAD Patient: JOSEPHINE HERNDONJosé Exam Date: 09/01/2022 : 1980 Gender:F Ordering : DR ANGELICA DE . Admission #: [id number] Family : Order #: [id number] CLICK HERE TO VIEW EXAM RADIOLOGY REPORT [...] bladder cancer at age 59. LOCATION: [facility] BREAST COMPOSITION: Scattered areas fibroglandular density. [...] Hendricks MD on 09/01/2022 at 09:32 Normal [facility] PAP ACOG PANEL 2: 21 to 29on 06-02-2022 . . Normal [facility] Comment on above: Result Comment: Perf ormed at: WB Performed By: #### 4 [id number] #### [facility] [address] [address] [address] Les Bryan Age Gdln ACOG Testing 30-65 Normal [facility] Comment on above: Performed By: #### 4 [id number] #### [facility] [address] [place], [place] [address] Dr. Les Bryan DIAGNOSIS: Comment Normal [facility] Comment on above: Result Comment: NEGA TIVE FOR INTRAEPITHELIAL LESION OR MALIGNANCY. Performed at: WB Performed By: #### 4 [id number] #### [facility] [id number] Les Bryan HPV Aptima Negative Normal Negative [facility] Comment on above: Result Comment: This nucleic acid amplification test detects fourteen high-risk HPV types (16,18,31,33,35,39,45,51,52,56,58,59,66,68) without differentiation. Performed at: =G Performed By: #### 4 [id number] #### [facility] [address] [place] [address] Dr. Les Bryan Methodology: Comment Normal [facility] Comment on above: Result Comment: This liquid based ThinPrep(R) pap test was screened with the use of an image guided system. Performed at: WB Performed By: #### [id number] #### [facility] [address] [place] [address] Dr. Les Bryan Note: Comment Normal [facility] Comment on above: Result Comment: The Pap smear is a screening test designed to aid in the detection of premalignant and malignant conditions of the uterine cervix. It is not a diagnostic procedure and should not be used as the sole means of detecting cervical cancer. Both false-positive and false-negative reports do occur. . Performed at: WB Performed By: #### 4 [id number] #### [facility] [address] [place] [address] Dr. Les Bryan Performed by: Comment Normal [facility] Comment on above: Result Comment: Bella Cuevas, Egg Pasteurizer (ASCP) Performed at: WB Performed By: #### 4 [id number] #### [facility] [address] [place] [address] Dr. Les Bryan Specimen adequacy: Comment Normal [facility] Comment on above: Result Comment: Sati sfactory for evaluation. Endocervical and/or squamous metaplastic cells (endocervical component) are present. Performed at: WB Performed By: #### 4 [id number] #### [facility] [address] [place] [address] Dr. Les Bryan HEPATITIS PANEL, ACUTEon HBsAg Screen Negative Normal Negative [facility] Comment on above: Performed By: #### H EPACUT #### [facility] [address] [place] [address] Dr. Les Bryan HCV AB 0.2 s/co ratio Normal 0.0-0.9 [facility] Comment on above: Performed By: #### H EPACUT #### [facility] [address] [place] [address] Dr. Les Bryan Hep A Ab, IgM Negative Normal Negative [facility] Comment on above: Performed By: #### H EPACUT #### [facility] [address] [place] [address] Dr. Les Bryan Hep B Core Ab, IgM Negative Normal Negative [facility] Comment on above: Performed By: #### H EPACUT #### [facility] [address] [place] [address] Dr. Les Bryan Interpretation: Comment Normal [facility] Comment on above: Result Comment: Nega tive Not infected with HCV, unless recent infection is suspected or other evidence exists to indicate HCV infection. Performed By: #### H EPACUT #### [facility] [address] [place] [address] Dr. Les Bryan INSULINon 04-18-2022 Insulin 18.8 uIU/mL Normal 2.6-24.9 [facility] Comment on above: Performed By: #### I NSULIN #### [facility] [address] [place] [address] Dr. Les Bryan BILIRUBIN CONJUGATED (DIRECT )on 04-17-2022 BILI, CONJUGATED 0.1 mg/dL Normal 0.0-0.2 [facility] Comment on above: Performed By: #### RICARDO STEVENSON #### [facility] [address] [place] [address] Dr. Les Bryan BNPon 04-17-2022 Natriuretic peptide B (Bld) [Mass/Vol] 12.0 pg/mL Normal <=450.0 [facility] Comment on above: Performed By: #### RICARDO STEVENSON #### [facility] [address] [place] [address] Dr. Les Bryan CBC AUTO DIFFon 04-17-2022 BASO # 0.1 103/ul Normal 0.0-0.1 [facility] Comment on above: Performed By: #### C BC #### [facility] [address] [place] [address] [address] Les Bryan Basophils/100 WBC (Bld) 0.6 % Normal 0.2-2.0 [facility] Comment on above: Performed By: #### C BC #### [facility] [address] [place] [address] [address] Les Bryan EO # 0.3 103/ul Normal 0.0-0.7 [facility] Comment on above: Performed By: #### C BC #### [facility] [address] [place] [address] [address] Les Bryan Eosinophils/100 WBC (Bld) 3.0 % Normal 0.9-7.0 [facility] Comment on above: Performed By: #### C BC #### [facility] [address] [address] [address] Les Bryan Erythrocyte distribution width (RBC) [Ratio] 13.2 % Normal 11.0-15.0 [facility] Comment on above: Performed By: #### C BC #### [facility] [address] [address] [address] Les Bryan Hematocrit (Bld) [Volume fraction] 40.8 % Normal 36.0-48.0 [facility] Comment on above: Performed By: #### C BC #### [facility] [address] [place] [address] [address] Les Bryan Hemoglobin (Bld) [Mass/Vol] 13.4 g/dL Normal 12.0-16.0 [facility] Comment on above: Performed By: #### C BC #### [facility] [address] [address] [address] Les Bryan IG # 0.07 10e3/ul Critically high 0.00-0.03 [facility] Comment on above: Performed By: #### C BC #### [facility] [address] [place] [address] [address] Les Bryan IG % 0.8 % Critically high 0.0-0.5 [facility] Comment on above: Performed By: #### C BC #### [facility] [address] [place] [address] Dr. Les Bryan LYMPH # 2.8 103/ul Normal 1.2-3.8 [facility] Comment on above: Performed By: #### C BC #### [facility] [address] [place] [address] Dr. Les Bryan Lymphocytes/100 WBC (Bld) 31.7 % Normal 20.5-60.0 [facility] Comment on above: Performed By: #### C BC #### [facility] [address] [place] [address] Dr. Les Bryan MANUAL DIFF REQ NO Normal [facility] Comment on above: Performed By: #### C BC #### [facility] [address] [place] [address] Dr. Les Bryan MCH (RBC) [Entitic mass] 29.5 pg Normal 26.7-34.0 [facility] Comment on above: Performed By: #### C BC #### [facility] [address] [place] [address] Dr. Les Bryan MCHC (RBC) [Mass/Vol] 32.8 g/dL Normal 29.9-35.2 [facility] Comment on above: Performed By: #### C BC #### [facility] [address] [place] [address] Dr. Les Bryan MCV (RBC) [Entitic vol] 89.9 fL Normal 81.0-99.0 [facility] Comment on above: Performed By: #### C BC #### [facility] [address] [place] [address] Dr. Les Bryan MONO # 0.4 103/ul Normal 0.3-0.8 [facility] Comment on above: Performed By: #### C BC #### [facility] [address] [place] [address] Dr. Les Bryan Monocytes/100 WBC (Bld) 4.7 % Normal 1.7-12.0 [facility] Comment on above: Performed By: #### C BC #### [facility] [address] [place] [address] [address] Les Bryan NEUT # 5.3 103/ul Normal 1.4-6.5 [facility] Comment on above: Performed By: #### C BC #### [facility] [address] [place] [address] [address] Les Bryan Neutrophils/100 WBC (Bld) 59.2 % Normal 43.0-75.0 [facility] Comment on above: Performed By: #### C BC #### [facility] [address] [place] [address] Dr. eLs Bryan Platelet mean volume (Bld) [Entitic vol] 9.1 fL Critically low 9.5-13.5 [facility] Comment on above: Performed By: #### C BC #### [facility] [address] [place] [address] Dr. Les Bryan PLT 309 103/ul Normal 150-450 [facility] Comment on above: Performed By: #### C BC #### [facility] [address] [place] [address] Dr. Les Bryan RBC 4.54 106/ul Normal 4.20-5.40 [facility] Comment on above: Performed By: #### C BC #### [facility] [address] [place] [address] Dr. Les Bryan WBC 8.9 103/ul Normal 4.0-11.0 [facility] Comment on above: Performed By: #### C BC #### [facility] [address] [place] [address] Dr. Les Bryan FREE T3on 04-17-2022 FREE T3 2.02 pg/mlL Critically low 2.18-3.98 [facility] Comment on above: Performed By: #### RICARDO STEVENSON #### [facility] [address] [place] [address] Dr. Les Bryan FREE THYROXINE INDEX T7on FTI 2.07 Normal 1.30-4.50 [facility] Comment on above: Performed By: #### RICARDO STEVENSON #### [facility] [address] [place] [address] Dr. Les Bryan T3U 30.0 % Normal 30.0-39.0 [facility] Comment on above: Performed By: #### RICARDO STEVENSON #### [facility] [address] [place] [address] Dr. Les Bryan T4 [Mass/Vol] 6.90 ug/dL Normal 4.80-13.90 [facility] Comment on above: Performed By: #### RICARDO TSEVENSON #### [facility] [address] [place] [address] Dr. Les Bryan GLYCOHEMOGLOBIN A1Con 2021 ADA RECOMMENDATION SEE BELOW Normal [facility] Comment on above: Result Comment: ADA RECOMMENDED LIMIT 4.0 - 6.0 ADA THERAPEUTIC TARGET < 7.0 ACTION SUGGESTED > 7.0 Performed By: #### A 1C #### [facility] [address] [place] [address] Dr. Les Bryan Glucose [Mass/Vol] 120 mg/dL Normal [facility] Comment on above: Performed By: #### A 1C #### [facility] [address] [place] [address] Dr. Les Bryan HbA1c (Bld) [Mass fraction] 5.8 % Normal 4.5-6.2 [facility] Comment on above: Performed By: #### A 1C #### [facility] [address] [place] [address] Dr. Les Bryan IRONon 04-17-2022 Iron [Mass/Vol] 66.0 ug/dL Normal 50.0-170.0 [facility] Comment on above: Performed By: #### RICARDO STEVENSON #### [facility] [address] [place] [address] Dr. Les Bryan LIPID PROFILEon 04-17-2022 CHOL-HDL RATIO NORM SEE BELOW Normal [facility] Comment on above: Result Comment: 3.3 - 4.4 LOW RISK 4.4 - 7.1 AVERAGE RISK 7.1 - 11.0 MODERATE RISK >11.0 HIGH RISK Performed By: #### Andi GUY UMICRO #### [facility] [address] [address] [address] Les Bryan Cholesterol [Mass/Vol] 244 mg/dL Critically high <=200 [facility] Comment on above: Performed By: #### Andi GUY UMICRO #### [facility] [address] [address] [address] Les Bryan Cholesterol in HDL [Mass/Vol] 55 mg/dL Normal 40-60 [facility] Comment on above: Performed By: #### Andi GUY UMICRO #### [facility] [address] [place] [address] Dr. Les Bryan Cholesterol in LDL [Mass/Vol] 155.4 mg/dL Normal [facility] Comment on above: Performed By: #### Andi GUY UMICRO #### [facility] [address] [place] [address] Dr. Les Bryan Cholesterol.total/Ch olesterol in HDL [Mass ratio] 4.4 {ratio} Normal [facility] Comment on above: Performed By: #### Andi GUY UMICRO #### [facility] [address] [place] [address] Dr. Les Bryan HDL NORMAL > or = 60 mg/dl - LOW CARDIOVASCULAR RISK <40 mg/dl - HIGH CARDIOVASCULAR RISK Normal [facility] Comment on above: Performed By: #### Andi GUY UMICRO #### [facility] [address] [place] [address] Dr. Les Bryan LDL CALC NORMAL SEE BELOW Normal [facility] Comment on above: Result Comment: <100 mg/dl OPTIMAL 100 - 129 mg/dl NEAR OR ABOVE OPTIMAL 130 - 159 mg/dl BORDERLINE HIGH 160 - 189 mg/dl HIGH >190 mg/dl VERY HIGH Performed By: #### E BROOKS UMICRO #### [facility] [address] [place] [address] Dr. Les Bryan Triglyceride [Mass/Vol] 168 mg/dL Critically high <=150 [facility] Comment on above: Performed By: #### Andi GUY UMICRO #### [facility] [address] [place] [address] Dr. Les Bryan VLDL CALC 33.6 mg/dL Normal [facility] Comment on above: Performed By: #### Andi GUY UMICRO #### [facility] [address] [place] [address] Dr. Les Bryan PROF 14(COMP METB)on 022 Albumin [Mass/Vol] 3.9 g/dL Normal 3.4-5.[address] [facility] Comment on above: Performed By: #### Andi GUY UMICRO #### [facility] [address] [place] [address] Dr. Les Bryan Albumin/Globulin [Mass ratio] 0.9 {ratio} Normal [facility] Comment on above: Performed By: #### Andi GUY UMICRO #### [facility] [address] [place] [address] Dr. Les Bryan ALP [Catalytic activity/Vol] 137 U/L Critically high 46-116 [facility] Comment on above: Performed By: #### Andi GUY UMICRO #### [facility] [address] [place] [address] Dr. Les Bryan ALT [Catalytic activity/Vol] 104 U/L Critically high 14-59 [facility] Comment on above: Performed By: #### Andi GUY UMICRO #### [facility] [address] [place] [address] Dr. Les Bryan Anion gap [Moles/Vol] 13.3 mmol/L Normal [facility] Comment on above: Performed By: #### Andi GUY UMICRO #### [facility] [address] [place] [address] Dr. Les Bryan AST [Catalytic activity/Vol] 59 U/L Critically high 15-37 [facility] Comment on above: Performed By: #### Andi GUY UMICRO #### [facility] [address] [place] [address] Dr. Les Bryan Bilirubin [Mass/Vol] 0.3 mg/dL Normal 0.2-1.0 [facility] Comment on above: Performed By: #### BARBER STEVENSONRO #### [facility] [address] [place] [address] Dr. Les Bryan Calcium [Mass/Vol] 9.0 mg/dL Normal 8.5-10.[address] [facility] Comment on above: Performed By: #### BARBER STEVENSONRO #### [facility] [address] [place] [address] Dr. Les Bryan Chloride [Moles/Vol] 104 mmol/L Normal 98-107 [facility] Comment on above: Performed By: #### BARBER STEVENSONRO #### [facility] [address] [place] [address] Dr. Les Bryan CO2 [Moles/Vol] 25.0 mmol/L Normal 21.0-32.0 [facility] [place] Comment on above: Performed By: #### BARBER STEVENSONRO #### [facility] [address] [place] [address] Dr. Les Bryan Creatinine [Mass/Vol] 0.70 mg/dL Normal 0.55-1.02 [facility] Comment on above: Performed By: #### BARBER STEVENSONRO #### [facility] [address] [place] [address] Dr. Les Bryan EGFR-AF MOROCCAN 111 mL/min/1.73m2 Normal >=60 [facility] Comment on above: Performed By: #### BARBER STEVENSONRO #### [facility] [address] [place] [address] Dr. Les Bryan EGFR-NON AF MOROCCAN 92 mL/min/1.73m2 Normal >=60 [facility] Comment on above: Performed By: #### BARBER STEVENSONRO #### [facility] [address] [place] [address] Dr. Les Bryan Globulin (S) [Mass/Vol] 4.3 g/dL Normal [facility] Comment on above: Performed By: #### E RUR, UMICRO #### [facility] [address] [address] [address] Les Bryan Glucose [Mass/Vol] 104 mg/dL Normal 74-106 [facility] Comment on above: Performed By: #### Andi GUY, UMICRO #### [facility] [address] [place] [address] Dr. Les Bryan Potassium [Moles/Vol] 4.3 mmol/L Normal 3.5-5.1 [facility] Comment on above: Performed By: #### E BROOKS, UMICRO #### [facility] [address] [place] [address] Dr. Les Bryan Protein [Mass/Vol] 8.2 g/dL Normal 6.4-8.2 [facility] Comment on above: Performed By: #### Andi GUY UMICRO #### [facility] [address] [place] [address] Dr. Les Bryan Sodium [Moles/Vol] 138 mmol/L Normal 136-145 [facility] Comment on above: Performed By: #### Andi GUY UMICRO #### [facility] [address] [place] [address] Dr. Les Bryan Urea nitrogen [Mass/Vol] 10.0 mg/dL Normal 7.0-18.0 [facility] Comment on above: Performed By: #### Andi GUY UMICRO #### [facility] [address] [place] [address] Dr. Les Bryan Urea nitrogen/Creatinine [Mass ratio] 14.3 mg/mg Normal [facility] Comment on above: Performed By: #### Andi GUY UMICRO #### [facility] [address] [place] [address] Dr. Les Bryan TSHon 04-17-2022 TSH 4.067 uIU/mL Critically high 0.358-3.[address] [facility] Comment on above: Performed By: #### T SH, DBIL, BNP, FT3, T7, LIPID, CMP #### [facility] [address] [place] [address] Dr. Les Bryan INSULINon 04-06-2022 Insulin 34.6 uIU/mL Critically high 2.6-24.9 [facility] Comment on above: Performed By: #### RICARDO STEVENSON #### [facility] [address] [place] [address] Dr. Les Bryan T4 LABCORPon 04-06-2022 T4 [Mass/Vol] 6.7 ug/dL Normal 4.5-12.0 [facility] Comment on above: Performed By: #### [id number] #### [facility] [address] [place] [address] Dr. Les Bryan BNPon 04-05-2022 Natriuretic peptide B (Bld) [Mass/Vol] 18.0 pg/mL Normal <=450.0 [facility] Comment on above: Performed By: #### RICARDO STEVENSON #### [facility] [address] [place] [address] Dr. Les Bryan CBC AUTO DIFFon 04-05-2022 BASO # 0.1 103/ul Normal 0.0-0.1 [facility] Comment on above: Performed By: #### [id number] #### [facility] [address] [place] [address] Dr. Les Bryan Basophils/100 WBC (Bld) 0.6 % Normal 0.2-2.0 [facility] Comment on above: Performed By: #### [id number] #### [facility] [address] [place] [address] Dr. Les Bryan EO # 0.2 103/ul Normal 0.0-0.7 [facility] Comment on above: Performed By: #### [id number] #### [facility] [address] [place] [address] Dr. Les Bryan Eosinophils/100 WBC (Bld) 1.9 % Normal 0.9-7.0 [facility] Comment on above: Performed By: #### [id number] #### [facility] [address] [place] [address] Dr. Les Bryan Erythrocyte distribution width (RBC) [Ratio] 13.3 % Normal 11.0-15.0 [facility] Comment on above: Performed By: #### 4 [id number] #### [facility] [address] [place] [address] Dr. Les Bryan Hematocrit (Bld) [Volume fraction] 39.1 % Normal 36.0-48.0 [facility] Comment on above: Performed By: #### [id number] #### [facility] [address] [place] [address] Dr. Les Bryan Hemoglobin (Bld) [Mass/Vol] 13.2 g/dL Normal 12.0-16.0 [facility] Comment on above: Performed By: #### [id number] #### [facility] [address] [place] [address] Dr. Les Bryan IG # 0.08 10e3/ul Critically high 0.00-0.03 [facility] Comment on above: Performed By: #### 4 [id number] #### [facility] [address] [place] [address] Dr. Les Bryan IG % 0.8 % Critically high 0.0-0.5 [facility] Comment on above: Performed By: #### [id number] #### [facility] [address] [place] [address] Dr. Les Bryan LYMPH # 3.0 103/ul Normal 1.2-3.8 [facility] Comment on above: Performed By: #### 4 [id number] #### [facility] [address] [place] [address] Dr. Les Bryan Lymphocytes/100 WBC (Bld) 31.4 % Normal 20.5-60.0 [facility] Comment on above: Performed By: #### 4 [id number] #### [facility] [address] [place] [address] Dr. Les Bryan MANUAL DIFF REQ NO Normal [facility] Comment on above: Performed By: #### [id number] #### [facility] [address] [place] [address] Dr. Les Bryan MCH (RBC) [Entitic mass] 30.1 pg Normal 26.7-34.0 [facility] Comment on above: Performed By: #### 4 [id number] #### [facility] [address] [place] [address] Dr. Les Bryan MCHC (RBC) [Mass/Vol] 33.8 g/dL Normal 29.9-35.2 [facility] Comment on above: Performed By: #### [id number] #### [facility] [address] [place] [address] Dr. Les Bryan MCV (RBC) [Entitic vol] 89.1 fL Normal 81.0-99.0 [facility] Comment on above: Performed By: #### 4 [id number] #### [facility] [address] [place] [address] Dr. Les Bryan MONO # 0.6 103/ul Normal 0.3-0.8 [facility] Comment on above: Performed By: #### [id number] #### [facility] [address] [place] [address] Dr. Les Bryan Monocytes/100 WBC (Bld) 6.1 % Normal 1.7-12.0 [facility] Comment on above: Performed By: #### 4 [id number] #### [facility] [address] [place] [address] Dr. Les Bryan NEUT # 5.6 103/ul Normal 1.4-6.5 [facility] Comment on above: Performed By: #### 4 [id number] #### [facility] [address] [place] [address] Dr. Les Bryan Neutrophils/100 WBC (Bld) 59.2 % Normal 43.0-75.0 [facility] Comment on above: Performed By: #### 4 [id number] #### [facility] [address] [place] [address] Dr. Les Bryan Platelet mean volume (Bld) [Entitic vol] 9.0 fL Critically low 9.5-13.5 [facility] Comment on above: Performed By: #### 4 [id number] #### [facility] [address] [place] [address] Dr. Les Bryan PLT 286 103/ul Normal 150-450 [facility] Comment on above: Performed By: #### 4 [id number] #### [facility] [address] [place] [address] Dr. Les Bryan RBC 4.39 106/ul Normal 4.20-5.40 [facility] Comment on above: Performed By: #### 4 [id number] #### [facility] [address] [place] [address] Dr. Les Bryan WBC 9.5 103/ul Normal 4.0-11.0 [facility] Comment on above: Performed By: #### [id number] #### [facility] [address] [place] [address] Dr. Les Bryan FREE T3on 04-05-2022 FREE T3 2.73 pg/mlL Normal 2.18-3.98 [facility] Comment on above: Performed By: #### BARBER STEVENSONRO #### [facility] [address] [place] [address] Dr. Les Bryan FREE THYROXINE INDEX T7on FTI 2.08 Normal 1.30-4.50 [facility] Comment on above: Performed By: #### BARBER STEVENSONRO #### [facility] [address] [place] [address] Dr. Les Bryan T3U 31.0 % Normal 30.0-39.0 [facility] Comment on above: Performed By: #### BARBER STEVENSONRO #### [facility] [address] [place] [address] Dr. Les Bryan T4 [Mass/Vol] 6.70 ug/dL Normal 4.80-13.90 [facility] Comment on above: Result Comment: T4 t esting performed by [facility] Performed By: #### SABINE STEVENSONICRO #### [facility] [address] [place] [address] Dr. Les Bryan GLYCOHEMOGLOBIN A1Con 2021 ADA RECOMMENDATION SEE BELOW Normal [facility] Comment on above: Result Comment: ADA RECOMMENDED LIMIT 4.0 - 6.0 ADA THERAPEUTIC TARGET < 7.0 ACTION SUGGESTED > 7.0 Performed By: #### [id number] #### [facility] [address] [place] [address] Dr. Les Bryan Glucose [Mass/Vol] 120 mg/dL Normal [facility] Comment on above: Performed By: #### 4 [id number] #### [facility] [address] [place] [address] Dr. Les Bryan HbA1c (Bld) [Mass fraction] 5.8 % Normal 4.5-6.2 [facility] Comment on above: Performed By: #### [id number] #### [facility] [address] [place] [address] Dr. Les Bryan IRONon 04-05-2022 Iron [Mass/Vol] 105.0 ug/dL Normal 50.0-170.0 [facility] Comment on above: Performed By: #### RICARDO STEVENSON #### [facility] [address] [place] [address] Dr. Les Bryan LIPID PROFILEon 04-05-2022 CHOL-HDL RATIO NORM SEE BELOW Normal [facility] Comment on above: Result Comment: 3.3 - 4.4 LOW RISK 4.4 - 7.1 AVERAGE RISK 7.1 - 11.0 MODERATE RISK >11.0 HIGH RISK Performed By: #### RICARDO STEVENSON #### [facility] [address] [place] [address] Dr. Les Bryan Cholesterol [Mass/Vol] 217 mg/dL Critically high <=200 [facility] Comment on above: Performed By: #### RICARDO STEVENSON #### [facility] [address] [place] [address] Dr. Les Bryan Cholesterol in HDL [Mass/Vol] 49 mg/dL Normal 40-60 [facility] Comment on above: Performed By: #### RICARDO STEVENSON #### [facility] [address] [place] [address] Dr. Les Bryan Cholesterol in LDL [Mass/Vol] 128.2 mg/dL Normal [facility] Comment on above: Performed By: #### RICARDO STEVENSON #### [facility] [address] [place] [address] Dr. Les Bryan Cholesterol.total/Ch olesterol in HDL [Mass ratio] 4.4 {ratio} Normal [facility] Comment on above: Performed By: #### BARBER STEVENSONRO #### [facility] [address] [place] [address] Dr. Les Bryan HDL NORMAL > or = 60 mg/dl - LOW CARDIOVASCULAR RISK <40 mg/dl - HIGH CARDIOVASCULAR RISK Normal [facility] Comment on above: Performed By: #### RICARDO STEVENSON #### [facility] [address] [place] [address] Dr. Les Bryan LDL CALC NORMAL SEE BELOW Normal [facility] Comment on above: Result Comment: <100 mg/dl OPTIMAL 100 - 129 mg/dl NEAR OR ABOVE OPTIMAL 130 - 159 mg/dl BORDERLINE HIGH 160 - 189 mg/dl HIGH >190 mg/dl VERY HIGH Performed By: #### RICARDO STEVENSON #### [facility] [address] [place] [address] Dr. Les Bryan Triglyceride [Mass/Vol] 199 mg/dL Critically high <=150 [facility] Comment on above: Performed By: #### RICARDO STEVENSON #### [facility] [address] [place] [address] Dr. Les Bryan VLDL CALC 39.8 mg/dL Normal [facility] Comment on above: Performed By: #### BARBER STEVENSONRO #### [facility] [address] [place] [address] Dr. Les Bryan PROF 14(COMP METB)on 022 Albumin [Mass/Vol] 3.8 g/dL Normal 3.4-5.[address] [facility] Comment on above: Performed By: #### RICARDO STEVENSON #### [facility] [address] [place], [place] [id number] Dr. Les Bryan Albumin/Globulin [Mass ratio] 0.9 {ratio} Normal [facility] Comment on above: Performed By: #### BARBER STEVENSONRO #### [facility] [address] [place] [address] Dr. Les Bryan ALP [Catalytic activity/Vol] 122 U/L Critically high 46-116 [facility] Comment on above: Performed By: #### BARBER STEVENSONRO #### [facility] [address] [place] [address] Dr. Les Bryan ALT [Catalytic activity/Vol] 90 U/L Critically high 14-59 [facility] Comment on above: Performed By: #### BARBER STEVENSONRO #### [facility] [address] [place] [address] Dr. Les Bryan Anion gap [Moles/Vol] 13.5 mmol/L Normal [facility] Comment on above: Performed By: #### BARBER STEVENSONRO #### [facility] [address] [place] [address] Dr. Les Bryan AST [Catalytic activity/Vol] 63 U/L Critically high 15-37 [facility] Comment on above: Performed By: #### BARBER STEVENSONRO #### [facility] [address] [place] [address] Dr. Les Bryan Bilirubin [Mass/Vol] 0.4 mg/dL Normal 0.2-1.0 [facility] Comment on above: Performed By: #### Andi GUY UMICRO #### [facility] [address] [place] [address] Dr. Les Bryan Calcium [Mass/Vol] 9.3 mg/dL Normal 8.5-10.1 [facility] Comment on above: Performed By: #### BARBER STEVENSONRO #### [facility] [address] [place] [address] Dr. Les Bryan Chloride [Moles/Vol] 103 mmol/L Normal 98-107 [facility] Comment on above: Performed By: #### E RUR, UMICRO #### [facility] [address] [address] [address] Les Bryan CO2 [Moles/Vol] 24.6 mmol/L Normal 21.0-32.0 [facility] Comment on above: Performed By: #### E RUR, UMICRO #### [facility] [address] [address] [address] Les Bryan Creatinine [Mass/Vol] 0.70 mg/dL Normal 0.55-1.02 [facility] Comment on above: Performed By: #### E LOKESHR, UMICRO #### [facility] [address] [address] [address] Les Bryan EGFR-AF MOROCCAN >60 Normal >=60 [facility] Comment on above: Performed By: #### E LOKESHR, UMICRO #### [facility] [address] [place] [address] Dr. Les Bryan EGFR-NON AF MOROCCAN >60 Normal >=60 [facility] Comment on above: Performed By: #### Andi CAMPAR, UMICRO #### [facility] [address] [address] [address] Les Bryan Globulin (S) [Mass/Vol] 4.1 g/dL Normal [facility] Comment on above: Performed By: #### Andi GUY, UMICRO #### [facility] [address] [address] [address] Les Bryan Glucose [Mass/Vol] 110 mg/dL Critically high 74-106 [facility] Comment on above: Performed By: #### E LOKESHR, UMICRO #### [facility] [address] [address] [address] Les Bryan Potassium [Moles/Vol] 4.1 mmol/L Normal 3.5-5.1 [facility] Comment on above: Performed By: #### E LOKESHR, UMICRO #### [facility] [address] [address] [address] Les Bryan Protein [Mass/Vol] 7.9 g/dL Normal 6.4-8.2 [facility] Comment on above: Performed By: #### Andi GUY UMICRO #### [facility] [address] [place] [address] Dr. Les Bryan Sodium [Moles/Vol] 137 mmol/L Normal 136-[address] [facility] Comment on above: Performed By: #### Andi GUY UMICRO #### [facility] [address] [place] [address] Dr. Les Bryan Urea nitrogen [Mass/Vol] 9.0 mg/dL Normal 7.0-18.0 [facility] Comment on above: Performed By: #### SABINE STEVENSONICRO #### [facility] [address] [place] [address] Dr. Les Bryan Urea nitrogen/Creatinine [Mass ratio] 12.9 mg/mg Normal [facility] Comment on above: Performed By: #### BARBER STEVENSONRO #### [facility] [address] [place] [address] Dr. Les Bryan TSHon 04-05-2022 TSH 3.572 uIU/mL Normal 0.358-3.740 [facility] Comment on above: Performed By: #### BARBER STEVENSONRO #### [facility] [address] [place] [address] Dr. Les Bryan TSH RANGE SEE BELOW Normal [facility] Comment on above: Result Comment: <0.3 4 UIU/ml HYPERTHYROID 0.34-5.60 UIU/ml EUTHYROID >5.60 UIU/ml HYPOTHYROID Performed By: #### Andi GUY UMICRO #### [facility] [address] [place] [address] Dr. Les Bryan XR KUB 1 VIEWon [...] AMANDA CASSIDY Date: 2022-02-27 15:05 Normal [facility] AMYLASEon 02-25-2022 Amylase [Catalytic activity/Vol] 34 U/L Normal 25-115 [facility] Comment on above: Performed By: #### [id number] #### [facility] [address] [place] [address] Dr. Les Bryan CBC AUTO DIFFon 02-25-2022 BASO # 0.0 103/ul Normal 0.0-0.1 [facility] Comment on above: Performed By: #### C BC #### [facility] [address] [place] [address] Dr. Les Bryan Basophils/100 WBC (Bld) 0.4 % Normal 0.2-2.0 [facility] Comment on above: Performed By: #### C BC #### [facility] [address] [place] [address] Dr. Les Bryan EO # 0.3 103/ul Normal 0.0-0.7 [facility] Comment on above: Performed By: #### C BC #### [facility] [address] [place] [address] Dr. Les Bryan Eosinophils/100 WBC (Bld) 3.6 % Normal 0.9-7.0 [facility] Comment on above: Performed By: #### C BC #### [facility] [address] [place] [address] Dr. Les Bryan Erythrocyte distribution width (RBC) [Ratio] 13.1 % Normal 11.0-15.0 [facility] Comment on above: Performed By: #### C BC #### [facility] [facility] [address] [place] [address] Dr. Les Bryan Hematocrit (Bld) [Volume fraction] 40.6 % Normal 36.0-48.0 [facility] Comment on above: Performed By: #### C BC #### [facility] [address] [address] [address] Les Bryan Hemoglobin (Bld) [Mass/Vol] 13.3 g/dL Normal 12.0-16.0 [facility] Comment on above: Performed By: #### C BC #### [facility] [address] [address] [address] Les Bryan IG # 0.06 10e3/ul Critically high 0.00-0.03 [facility] Comment on above: Performed By: #### C BC #### [facility] [address] [address] [address] Les Bryan IG % 0.6 % Critically high 0.0-0.5 [facility] Comment on above: Performed By: #### C BC #### [facility] [address] [place] [address] Dr. Les Bryan LYMPH # 3.6 103/ul Normal 1.2-3.8 [facility] Comment on above: Performed By: #### C BC #### [facility] [address] [place] [address] Dr. Les Bryan Lymphocytes/100 WBC (Bld) 38.2 % Normal 20.5-60.0 [facility] Comment on above: Performed By: #### C BC #### [facility] [address] [place] [address] Dr. Les Bryan MANUAL DIFF REQ NO Normal [facility] Comment on above: Performed By: #### C BC #### [facility] [address] [place] [address] Dr. Les Bryan MCH (RBC) [Entitic mass] 29.7 pg Normal 26.7-34.0 [facility] Comment on above: Performed By: #### C BC #### [facility] [address] [place] [address] Dr. Les Bryan MCHC (RBC) [Mass/Vol] 32.8 g/dL Normal 29.9-35.2 [facility] Comment on above: Performed By: #### C BC #### [facility] [id number] Les Bryan MCV (RBC) [Entitic vol] 90.6 fL Normal 81.0-99.0 [facility] Comment on above: Performed By: #### C BC #### [facility] [address] [address] [address] Les Bryan MONO # 0.5 103/ul Normal 0.3-0.8 [facility] Comment on above: Performed By: #### C BC #### [facility] [address] [place] [address] Dr. Les Bryan Monocytes/100 WBC (Bld) 5.4 % Normal 1.7-12.0 [facility] Comment on above: Performed By: #### C BC #### [facility] [address] [place] [address] Dr. Les Bryan NEUT # 4.9 103/ul Normal 1.4-6.5 [facility] Comment on above: Performed By: #### C BC #### [facility] [address] [place] [address] Dr. Les Bryan Neutrophils/100 WBC (Bld) 51.8 % Normal 43.0-75.0 [facility] Comment on above: Performed By: #### C BC #### [facility] [address] [place] [address] Dr. Les Bryan Platelet mean volume (Bld) [Entitic vol] 9.2 fL Critically low 9.5-13.5 [facility] Comment on above: Performed By: #### C BC #### [facility] [address] [place] [address] Dr. Les Bryan PLT 335 103/ul Normal 150-450 [facility] Comment on above: Performed By: #### C BC #### [facility] [address] [place] [address] Dr. Les Bryan RBC 4.48 106/ul Normal 4.20-5.40 [facility] Comment on above: Performed By: #### C BC #### [facility] [address] [place] [address] Dr. Les Bryan WBC 9.4 103/ul Normal 4.0-11.0 [facility] Comment on above: Performed By: #### C #### [facility] [id number] Les Bryan CT ABD/PELVIS WO CONon [...] by: IWONA BRITT Date: 2022-02-25 19:05 Normal [facility] ER URINE PROFILEon 2 Bilirubin Ql (U) Negative Normal NEGATIVE [facility] Comment on above: Performed By: #### Andi GUY UMICRO #### [facility] [address] [place] [address] Dr. Les Bryan Clarity (U) CLEAR Normal CLEAR [facility] Comment on above: Performed By: #### Andi GUY UMICRO #### [facility] [address] [place] [address] Dr. Les Bryan Color (U) YELLOW Normal YELLOW [facility] Comment on above: Performed By: #### Andi GUY UMICRO #### [facility] [address] [place] [address] Dr. Les MOY A micrscopic examination will be performed if indicated. Normal [facility] Comment on above: Performed By: #### Andi GUY UMICRO #### [facility] [address] [place] [address] Dr. Les Bryan Glucose Ql (U) Negative Normal NEGATIVE [facility] Comment on above: Performed By: #### Andi GUY UMICRO #### [facility] [address] [place] [address] Dr. Les Bryan Hemoglobin Ql (U) LARGE Abnormal NEGATIVE [facility] Comment on above: Performed By: #### Andi GUY UMICRO #### [facility] [address] [place] [address] Dr. Les Bryan Ketones Ql (U) Negative Normal NEGATIVE [facility] Comment on above: Performed By: #### Andi GUY UMICRO #### [facility] [address] [place] [address] Dr. Les Bryan LEUKOCYTES TRACE Abnormal NEGATIVE [facility] Comment on above: Performed By: #### Andi GUY UMICRO #### [facility] [address] [place] [address] Dr. Les Bryan Nitrite Ql (U) Negative Normal NEGATIVE [facility] Comment on above: Performed By: #### Andi GUY UMICRO #### [facility] [address] [place] [address] Dr. Les Bryan pH (U) 7.0 [pH] Normal 5-9 [facility] Comment on above: Performed By: #### RICARDO STEVENSON #### [facility] [address] [place] [address] Dr. Les Bryan Protein (U) [Mass/Vol] 30 mg/dL Abnormal NEGATIVE/ TRACE [facility] Comment on above: Performed By: #### RICARDO STEVENSON #### [facility] [address] [place] [address] Dr. Les Bryan SPEC GRAVITY 1.025 Normal 1.005-<=1.025 [facility] Comment on above: Performed By: #### RICARDO STEVENSON #### [facility] [address] [place] [address] Dr. Les Bryan UR MICRO IND INDICATED Normal [facility] Comment on above: Performed By: #### RICARDO STEVENSON #### [facility] [address] [place] [address] Dr. Les Bryan Urobilinogen Qn (U) 0.2 {Racquel'U}/dL Normal 0.2 - 1. 0 [facility] Comment on above: Performed By: #### RICARDO STEVENSON #### [facility] [address] [place] [address] Dr. Les Bryan LIPASEon 02-25-2022 Lipase [Catalytic activity/Vol] 82.0 U/L Normal 73.0-393.0 [facility] Comment on above: Performed By: #### 4 [id number] #### [facility] [address] [place] [address] Dr. Les Bryan PROF 14(COMP METB)on 022 Albumin [Mass/Vol] 3.7 g/dL Normal 3.4-5.0 [facility] Comment on above: Performed By: #### 4 [id number] #### [facility] [address] [place] [address] Dr. Les Bryan Albumin/Globulin [Mass ratio] 0.9 {ratio} Normal [facility] Comment on above: Performed By: #### 4 [id number] #### [facility] [address] [address] [address] Les Bryan ALP [Catalytic activity/Vol] 129 U/L Critically high 46-116 [facility] Comment on above: Performed By: #### 4 [id number] #### [facility] [address] [address] [address] Les Bryan ALT [Catalytic activity/Vol] 86 U/L Critically high 14-59 [facility] Comment on above: Performed By: #### 4 [id number] #### [facility] [address] [address] [address] Les Bryan Anion gap [Moles/Vol] 15.3 mmol/L Normal [facility] Comment on above: Performed By: #### 4 [id number] #### [facility] [address] [address] [address] Les Bryan AST [Catalytic activity/Vol] 51 U/L Critically high 15-37 [facility] Comment on above: Performed By: #### 4 [id number] #### [facility] [address] [address] [address] Les Bryan Bilirubin [Mass/Vol] 0.2 mg/dL Normal 0.2-1.0 [facility] Comment on above: Performed By: #### 4 [id number] #### [facility] [address] [address] [address] Les Bryan Calcium [Mass/Vol] 8.4 mg/dL Critically low 8.5-10.1 [facility] Comment on above: Performed By: #### 4 [id number] #### [facility] [address] [address] [address] Les Bryan Chloride [Moles/Vol] 103 mmol/L Normal 98-107 [facility] Comment on above: Performed By: #### 4 [id number] #### [facility] [address] [address] [address] Les Bryan CO2 [Moles/Vol] 26.2 mmol/L Normal 21.0-32.0 [facility] Comment on above: Performed By: #### 4 [id number] #### [facility] [address] [address] [address] Les Bryan Creatinine [Mass/Vol] 0.72 mg/dL Normal 0.55-1.02 [facility] Comment on above: Performed By: #### 4 [id number] #### [facility] [address] [address] [address] Les Bryan EGFR-AF MOROCCAN >60 Normal >=60 [facility] Comment on above: Performed By: #### 4 [id number] #### [facility] [address] [address] [address] Les Bryan EGFR-NON AF MOROCCAN >60 Normal >=60 [facility] Comment on above: Performed By: #### 4 [id number] #### [facility] [address] [place] [address] Dr. Les Bryan Globulin (S) [Mass/Vol] 4.2 g/dL Normal [facility] Comment on above: Performed By: #### 4 [id number] #### [facility] [address] [address] [address] Les Bryan Glucose [Mass/Vol] 121 mg/dL Critically high 74-106 [facility] Comment on above: Performed By: #### 4 [id number] #### [facility] [address] [address] [address] Les Bryan Potassium [Moles/Vol] 3.5 mmol/L Normal 3.5-5.1 [facility] Comment on above: Performed By: #### 4 [id number] #### [facility] [address] [address] [address] Les Bryan Protein [Mass/Vol] 7.9 g/dL Normal 6.1-8.2 [facility] Comment on above: Performed By: #### 4 [id number] #### [facility] [address] [address] [address] Les Bryan Sodium [Moles/Vol] 141 mmol/L Normal 136-[address] [facility] Comment on above: Performed By: #### 4 [id number] #### [facility] [address] [place] [address] Dr. Les Bryan Urea nitrogen [Mass/Vol] 14.0 mg/dL Normal 7.0-18.0 [facility] Comment on above: Performed By: #### 4 [id number] #### [facility] [address] [place] [address] Dr. Les Bryan Urea nitrogen/Creatinine [Mass ratio] 19.4 mg/mg Normal [facility] Comment on above: Performed By: #### 4 [id number] #### [facility] [address] [place] [address] Dr. Les Bryan URINE MICROSCOPIC ONLYon BACTERIA TRACE Abnormal NONE SEEN [facility] Comment on above: Performed By: #### Andi GYU, UMICRO #### [facility] [address] [place] [address] Dr. Les Bryan Bacteria identified Cx Nom (U) NOT INDICATED Normal [facility] Comment on above: Performed By: #### Andi GUY, UMICRO #### [facility] [address] [place] [address] Dr. Les Bryan CAST NONE SEEN Normal NONE SEEN [facility] Comment on above: Performed By: #### E BROOKS, UMICRO #### [facility] [address] [place] [address] Dr. Les Bryan Crystals LM Nom (Urine sed) NONE SEEN Normal NONE SEEN [facility] Comment on above: Performed By: #### E RUR, UMICRO #### [facility] [address] [place] [address] Dr. Les Bryan Epithelial cells LM Ql (Urine sed) MODERATE Abnormal NONE SEEN /RARE [facility] Comment on above: Performed By: #### Andi RUR, UMICRO #### [facility] [address] [place] [address] Dr. Les Bryan MUCOUS NONE SEEN Normal NONE SEEN [facility] Comment on above: Performed By: #### E BROOKS, UMICRO #### [facility] [address] [address] [address] Les Bryan RBC 20-50 Abnormal 0-2 [facility] Comment on above: Result Comment: cren ated RBCs Performed By: #### RICARDO STEVENSON #### [facility] [address] [place], [place] [address] Dr. Les Bryan WBC 2-5 Abnormal NONE SEEN [facility] Comment on above: Performed By: #### RICARDO STEVENSON #### [facility] [address] [address] [address] Les Bryan Vital Signs Date Time Vital Sign Value Performing Clinician Facility 12-02-2024 14:40-0500 Blood Pressure Location Meddle [facility] 12-02-2024 14:40-0500 Diastolic blood pressure 106 mm[Hg] [facility] 12-02-2024 14:40-0500 Heart rate 72 /min [facility] 12-02-2024 14:40-0500 Respiratory rate 16 /min [facility] 12-02-2024 14:40-0500 Systolic blood pressure 142 mm[Hg] [facility] [place] 09-13-2023 10:30-0500 Body height 162.56 cm Shae Silvesrteler Other [facility] Other 09-13-2023 10:30-0500 Body mass index (BMI) [Ratio] 23.14 kg/m2 Shae Love Other [facility] Other 09-13-2023 10:30-0500 Body temperature 98.4 [degF] Shae Love Other [facility] Other 09-13-2023 10:30-0500 Body weight 61.15 kg Shae Love Other [facility] Other 09-13-2023 10:30-0500 Respiratory rate 18 /min Shae Love Other [facility] Other 09-13-2023 10:30-0500 SaO2% (BldA) [Mass fraction] 99 % Shae Love Other [facility] Other 04-21-2022 09:07-0400 Blood Pressure Location Jl YULIANAL [facility] [place] 04-21-2022 09:07-0400 Diastolic blood pressure 86 mm[Hg] Jl NILL [facility] [place] 04-21-2022 09:07-0400 Heart rate 92 /min Jl NILL [facility] [place] 04-21-2022 09:07-0400 Respiratory rate 16 /min Jl NILL [facility] [place] 04-21-2022 09:07-0400 Systolic blood pressure 127 mm[Hg] Jl NILL [facility] [place] Encounters Encounter Date Encounter Type Care Provider Facility Start: 01-12-2025 End: 01-12-2025 ambulatory Corky Ta DPM Facility:[facility] Start: 12-02-2024 End: 12-02-2024 ambulatory Jl FREDERICK Facility:[facility] Start: 12-02-2024 End: 12-02-2024 Patient encounter procedure Jl FREDERICK [facility] [place] Start: 06-12-2024 End: 06-12-2024 Emergency department patient visit [facility] Start: 09-13-2023 Office outpatient ne w 20 minutes Shae Love [facility] Start: 09-13-2023 End: 09-13-2023 ambulatory Shae Love [facility] [employer] Other Start: 09-13-2023 End: 09-13-2023 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 Love Work Phone: [facility] Work Phone: [...] encounter procedure Jl FREDERICK General [facility] [place] Start: 04-21-2022 End: 04-21-2022 Patient encounter procedure Jl FREDERICK [facility] [place] Start: 04-20-[address] ANGELICA DE Facility :[facility] Start: 04-17-2022 End: 04-18-[address] ANGELICA DE Facility:[facility] Start: 04-05-2022 End: 04-06-[address] ANGELICA DE Facility:[facility] Start: 02-27-2022 End: 02-28-[address] ANGELICA DE Facility:[facility] Start: 02-25-2022 End: 02-25-2022 ambulatory EMILY MCDERMOTT Facility:[facility] Procedures Date Procedure Procedure Detail Performing Clinician Start: 09-13-2023 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 Work Phone: Start: 05-03-2022 Excision of dermatofibroma Jl BRIDGSEHerbert Comment on above: left ankle Start: 07-08-2015 laparoscopic cholecy stectomy with intraoperative cholangiogram Jl YULIANAHerbert Abdominal hysterectomy Sebastian BRIDGESHerbert Bilateral complete salpingectomy Jl BRIDGESHerbert Diagnostic laparoscopy Sebastian FREDERICK Loop electrosurgical excision procedure Jl BRIDGESHerbert Payers Date Payer Category Payer Unknown 2024 Unknown [id number] 1980 Unknown [id number] 2.16.84 [id number] 1979 Unknown [id number] 2.16.84 [id number] 1979 Unknown [id number] 2.16.84 [id number] 1979 Unknown [id number] 2.16.84 [id number] 1979 Unknown [id number] 2.16.84 [id number] 1979 Unknown [id number] 2.16.84 [id number] 1979 Unknown [id number] 2.16.84 [id number] 1979 Unknown [id number] 2.16.84 [id number] 1979 Unknown [id number] 2.16.84 [id number] 1979 Unknown [id number] 2.16.8 [id number] 1979 Unknown [id number] 2.16.8 [id number] 1979 Unknown [id number] 2.16. [id number] 1959 Self-pay 1960 Unknown [id number] Unknown [id number] 2.16.8 [id number] Social History Date Type Detail Facility Start: 04-21-2022 Tobacco smoking status Ex-smoker (fi nding) [facility] Tobacco smoking status Never Marielena [facility] Sex Assigned At Female [facility] Start: 1980 Sex Assigned At Female [facility] Start: 12-02-2024 Tobacco smoking status Heavy t obacco smoker (finding) [facility] Functional Status Date Assessment Result Facility 12-02-2024 Functional Status N/A [facility] 04-21-2022 Functional Status N/A [facility] Clinical Note 12-02-2024 Note Date & Type [...] Mother. Primary malignant neoplasm of bladder: Father. [facility] Comment on above: Result Comment: Elec tronically Signed By: Jl FREDERICK MD\.br\Date and Time Signed: 12/02/24 15:12 EST Evaluation [...] understanding and is agreeable to treatment plan [facility] Other Evaluation + Plan note Note Date & Type Note Facility Evaluation + Plan note Future Appointments Appointment Date:05/03/2022 03:00:00 PM Scheduled Provider:Jl FREDERICK MD Location:[facility] Appointment Type:GS Procedure 30 [facility] [place] Evaluation + Plan note Note Date & Type Note Facility Evaluation + Plan note Future Appointments Appointment Date:05/12/2022 03:40:00 PM Scheduled Provider:Jl FREDERICK MD Location:[facility] Appointment Type:GS Post Op 15 [facility] Surgery [place] Evaluation note Note Date & Type Note Facility Evaluation note No assessment information availa ble [facility] Work Phone: History general Narrative - Reported Note Date & Type Note Facility History general Narrative - Reported Type Medical History Anxiety disorder Medical History chronic depression Medical History thyriod Surgical History LEAP [facility] Other Hospital course Narrative Note Date & Type Note Facility Hospital course Narrative No data available for this section [facility] [place] [facility] Discharge instructions Note Date & Type Note Facility Hospital Discharge instructions No data available for this section [facility] [place] Progress note Note Date & Type Note Facility Progress note No data available for this section [facility] [place] Summary Purpose Family History No Family History Records FoundNo Family History Records FoundNo Family History Records Found No data available for this section No Family History Records FoundNo Family History [...] DATE CREATED AUTHOR AUTHOR'S ORGANIZ ATION 12/07/2023 [facility] DATE CREATED AUTHOR AUTHOR'S ORGANIZ ATION 06/15/2024 [facility] DATE CREATED AUTHOR AUTHOR'S ORGANIZ ATION 12/04/2024 [facility] DATE CREATED AUTHOR AUTHOR'S ORGANIZ ATION 01/17/2025 [facility] REASON FOR VISIT (unrecogniz ed [...] PRIMARY CLINICAL RECORDS. [facility] [employer] [facility]. provides no warranty or guarantee of the accuracy or completeness of information in this document.
[2025-01-24 11:03] LABS: Alanine Aminotransferase 56 U/L (14-59); Albumin Globulin Ratio 1.1; Albumin Level 3.9 g/dL (3.4-5.0); Alkaline Phosphatase 118 U/L (46-116); Anion Gap 11.9; Aspartate Amino Transferase 26 U/L (15-37); BUN Creatinine Ratio 19.2; Bilirubin Total 0.4 mg/dL (0.2-1.0); Calcium 8.9 mg/dL (8.5-10.1); Carbon Dioxide 28.4 mmol/L (21.0-32.0); Chloride 105 mmol/L (98-107); Estimated GFR (African America >60 (>=60 mL/min/1.73m^2); Estimated GFR (Non-African Ame >60 (>=60 mL/min/1.73m^2); Free T3 1.83 pg/mL (2.18-3.98); Globulin 3.7 g/dL; Glucose 97 mg/dL (74-106); Potassium 4.3 mmol/L (3.5-5.1); Sodium 141 mmol/L (136-145); Thyroid Stimulating Hormone 0.396 uIU/mL (0.358-3.740); Total Protein 7.6 g/dL (6.4-8.2)
== END 2025-01-24 10:12 | disposition home or self-care (01) ==
LOC: LAB 10:12
PROVIDERS: PCP Family Medicine; Visit Provider Family Medicine
DX: E03.9 Hypothyroidism, unspecified (principal); R63.5 Abnormal weight gain
CPT/HCPCS: 36415; 80053; 84436; 84443; 84481

== ENCOUNTER 2025-06-01 13:29 | Outpatient (OUT) | payer BC, SELFPAY ==
--- OUTSIDE RECORDS SUMMARY | 2025-06-01 13:34 | XMS_ITS | Clinical Summary ---
Author Organization [facility] Address [id number] [address] [id number] Care Team Providers Care Graphotype Operator Name Role Phone Unavailable Primary Care Provider Unavailabl e Social History Tobacco Use Types Packs/Day Years Used Date Smoking Tobacco: Never Assessed Comments Unknown Sex and Gender Information Value Date Recorded Sex Assigned at Not on file Legal Sex Female 12:37 PM EDT Gender Identity Not on file Sexual Orientation Not on file Plan of Treatment Health Maintenance Due Date Last Done Comments Depression Screening 1991 Tobacco Screening 1991 Adult BMI Screening 1997 DTaP,Tdap and Td Vaccines (1 - Tdap) 1998 Pap Smear 2000 Influenza Vaccine 06/29/2025 Medical Devices Not on file
--- OUTSIDE RECORDS SUMMARY | 2025-06-01 13:34 | XMS_ITS | Clinical Summary ---
Author Organization [facility] Address [address] [place] [address] Care Team Providers Care Supervisor Photoengraving Name Role Phone Unavailable Primary Care Provider Unavailabl e Social History Tobacco Use Types Packs/Day Years Used Date Smoking Tobacco: Never Assessed [place] Safety & Environment Answer Date Rec orded Fear of Current or Ex-Partner Not on file Emotionally Abused Not on file 12/20/2023 Physically Abused Not on file 12/20/2023 Sexually Abused Not on file 12/20/2023 Physically or Sexually Abused Not on file Comments Unknown Sex and Gender Information Value Date Recorded Sex Assigned at Not on file Legal Sex Female 12:36 AM EDT Gender Identity Not on file Sexual Orientation Not on file Plan of Treatment Not on file
--- OUTSIDE RECORDS SUMMARY | 2025-06-01 13:34 | XMS_ITS | Clinical Summary ---
Author Organization [facility] Address [address], [address] [place] [address] Care Team Providers Care Electronic Maintenance Supervisor Name Role Phone Unavailable Primary Care Provider Unavailabl e Allergies Active Allergy Reactions Criticality Noted Date Comments Sulfamethoxazole-Trimethoprim Hives Medium 2023 Latex Hives Medium 06/12/2024 Medications QUEtiapine (SEROQUEL) 100 MG tablet Take 1 tablet by mouth at bedtime Active hydrOXYzine HCl (ATARAX) 25 MG tablet Take 1 tablet by mouth every 6 hours as needed for Anxiety Active levothyroxine (SYNTHROID) 25 MCG tablet Take 1 tablet by mouth Daily Active desvenlafaxine succinate (PRISTIQ) 100 MG TB24 extended release tablet Take 1 tablet by mouth daily Active ondansetron (ZOFRAN-ODT) 4 MG disintegrating tablet Take 1 tablet by mouth 3 times daily as needed for Nausea or Vomiting 21 tablet Active Active Problems Problem Noted Date Diagnosed Date Exposure to chemical irritant 06/12/2024 Social History Tobacco Use Types Packs/Day Years Used Date Smoking Tobacco: Every Day Cigarettes Smokeless Tobacco: Never Tobacco Cessation:Ready to Q uit: Not Asked; Counseling Given: Not Answered Alcohol Use Standard Drinks/Week Comments Not Currently 0 (1 standard drink = 0.6 oz pur e alcohol) Interpersonal Safety Domain Source: IP Abuse Scr eening Answer Date Recorded Physical abuse Denies 06/12/2024 Verbal abuse Denies 06/12/2024 Emotional abuse Denies 06/12/2024 Financial abuse Denies 06/12/2024 Sexual abuse Denies 06/12/2024 Comments No Sex and Gender Information Value Date Recorded Sex Assigned at Not on file Legal Sex Female 11:23 AM EDT Gender Identity Not on file Sexual Orientation Not on file Last Filed Vital Signs Vital Sign Reading Time Taken Comments Blood Pressure 124/79 06/12/2024 1:00 PM EDT Pulse 74 06/12/2024 1:00 PM EDT Temperature 36.9 C (98.4 F) 06/12/2024 11:30 AM EDT Respiratory Rate 14 06/12/2024 1:00 PM EDT Oxygen Saturation 100% 06/12/2024 12:00 PM EDT Inhaled Oxygen Concentration - - Weight 63.5 kg (140 lb) 06/12/2024 11:30 AM EDT Height 162.6 cm (5' 4 ) 06/12/2024 11:30 AM EDT Body Mass Index 24.03 06/12/2024 11:30 AM EDT Plan of Treatment Health Maintenance Due Date Last Done Comments DTaP/Tdap/Td vaccine (1 - Tdap) 1998 COVID-19 Vaccine (2023-2 5 season) 2024 Flu vaccine (#1) 05/29/2025 Polio vaccine Aged Out No longer elig semaj based on patient's age to complete this topic
--- NOTE | 2025-06-01 13:39 | MR_ITS ---
The [address] [address] Patient Name: LUCIA HERNDON MRN: [id number] date: 1980 Sex: F Assigned Patient Location: MRI Current Patient Location: MRI Accession/Order Number: [id number] Exam Date: 06/01/2025 14:56 Report Date: 06/01/2025 15:01 At the request of: ANGELICA VERONICA MD Procedure: MR head/brain wo con MR head/brain wo con 06/01/2025 2:20 PM SIGN AND SYMPTOMS: Severe migraine headaches PROTOCOL: Multiplanar multisequence MR images of the brain without IV contrast COMPARISON: None. FINDINGS: Extra axial spaces: Age appropriate. Hemorrhage: None. Ventricular system: Within normal limits. Basal cisterns: Within normal limits and not effaced. Cerebral parenchyma: Normal in signal. Midline shift: None.. Cerebellum: Within normal limits. Brainstem: Within normal limits. OTHER: Calvarium: Normal marrow signal. Vascular system: Satisfactory flow voids within the anterior and posterior circulation. Visualized Paranasal sinuses: Within normal limits. Visualized Orbits: Within normal limits. Visualized upper cervical spine: Within normal limits. Sella and skull base: Within normal limits. MR/MR head/brain wo con IMPRESSION: No acute intracranial pathology. Impression dictated by: Donato Rockwell M.D. 06/01/2025 3:01 PM Dictation Location: [place] [address] Electronically authenticated by: [id number] Date: 06/01/2025 15:01
== END 2025-06-01 13:30 | disposition home or self-care (01) ==
LOC: MRI 13:31
PROVIDERS: PCP Family Medicine; Visit Provider Family Medicine
DX: G43.909 Migraine, unspecified, not intractable, without status migrainosus (principal)
CPT/HCPCS: 70551

== ENCOUNTER 2025-07-27 11:36 | Outpatient (OUT) | payer BC, SELFPAY ==
--- OUTSIDE RECORDS SUMMARY | 2025-01-12 13:57 | XMS_ITS ---
Author Name Auto Generated Organization OH[facility] Care Team Providers Care Heel Top Lift Splitter Name Role Phone Jl FREDERICK Attending Karla LECHUGAM, Corky Padilla Attending Rochelle ilable PROBLEMS No Problem Records Found PROCEDURES No Procedure Records Found RESULTS C AYAD Observed: 01/12/2025 1:57 PM Status: F Source: [facility] Final No anaerobic growth after 72 hrs. Performed By: #### ANAC #### [place] [address] C WOUND Observed: 01/12/2025 1:57 PM Status: F Source: [facility] Final No growth at 48 hours. Performed By: #### WDC #### [address] [address] OR TRACK Collected: 01/12/2025 1:57 PM Status: F Source: [facility] TYPE CODE TESTS RESULT OUT OF RANGE REFERENCE UNITS LAB CD:[id number]( INC) Specimens Received From O Performed By: #### Outreach Tracking Order #### [address] [id number] GENERAL SURGERY OFFICE/CLINI C NOTE Observed: 12/02/2024 3:12 PM Status: F Source: [facility] General Surgery Office/Clini c Note Chief Complaint consultation for skin lesion [...] Mother. Primary malignant neoplasm of bladder: Father. Result Comment: Electronical ly Signed By: YOLY AKBAR, Jl Nieves\.br\Date and Time Signed: 12/02/24 15:12 EST AMBULATORY VISIT SUMMARY Observed: 12/02 3:10 PM Status: F Source: [facility] Ambulatory Visit Summary LUCIA HERNDON :1980 Visit Date:12/02/2024 Ambulatory Visit Instructions Your Diagnosis Subcutaneous nodule of left lower extremity Tests Performed US Extremity Non-Vascular Limited Left -- Results Pending -- Please visit your patient portal for your results or contact your primary care physician. Your Care Team Attending Physician - Jl FREDERICK MD Primary Care Physician - Napoleon De MD This Is Your Medications List [...] if questions or concerns Allergies Latex (Rash) sulfamethoxazole-trimethoprim (Hives) Problems Ongoing - Any problem that [...] you for choosing us for your care. ALLERGIES DATE TYPE / CODE NAME / CODE REACTION SEVERITY SOURCE [id number](SNOME D CT) sulfamethoxazole-trimet [facility] [id number] [facility] [id number](SNOME D CT) No Known Allergies [facility] [id number](SNOME D CT) Latex [id number] [facility] ENCOUNTERS ADMIT/DISCHARGE ACCOUNT NUMBER ADMITTING ENCOUNTER CLASS LOCATION SOURCE 01/12/2025/ 5 [id number] [facility] 12/02/2024/ 5 [id number] Ambulatory [facility] ing:[facility]: Procedure [facility] PAYERS ENCOUNTER GUARANTOR PAYER SUBSCRIBER SOURCE 01/12/2025 LUCIA TABARES: [facility] [address] [address] Primary Insurance:AnthemPo licy Number: Effective Date:[id number] n Name:COMP [id number], [place] [address]QV: LUCIA TABARES: [id number] [facility] [place] [address] [facility] 12/02/2024 LUCIA TABARES: [address]Tel: ~~(41 (HP) Primary Insurance:AnthemPo licy Number: [id number] heide Date:6010-05-12[id number], [place] [address]XB: LUCIA REYES [facility]
--- OUTSIDE RECORDS SUMMARY | 2025-02-05 09:50 | XMS_ITS ---
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 LT ANKLE. * Medical History: Objective: * Vitals: Assessment: Plan: * Treatment: Forms: * Images: * Electronic signature of Kristy Ta DPM on 07/27/2025 at 10:43 AM EDT Sign off status: Pending * Provider: Veronika Ta DPM Date: 0 02/05/2025 Generated for John navarro/Humaira/Gwendolyn on: 0 07/27/2025 10:43 AM EDT
--- OUTSIDE RECORDS SUMMARY | 2025-07-27 11:39 | XMS_ITS | Clinical Summary ---
Author Organization [facility] Address [address] [place] [address] Care Team Providers Care Customer Account Technician Name Role Phone Unavailable Primary Care Provider Unavailabl e Social History Tobacco Use Types Packs/Day Years Used Date Smoking Tobacco: Never Assessed Comments Unknown Sex and Gender Information Value Date Recorded Sex Assigned at Not on file Legal Sex Female 9:30 PM EDT Gender Identity Not on file Sexual Orientation Not on file Last Filed Vital Signs Vital Sign Reading Time Taken Comments Blood Pressure 119/88 02/20/2019 12:00 PM EDT Pulse - - Temperature - - Respiratory Rate - - Oxygen Saturation - - Inhaled Oxygen Concentration - - Weight 65.8 kg (145 lb) 12/16/2019 12:00 PM EST Height 160 cm (5' 3 ) 12/16/2019 12:00 PM EST Body Mass Index 25.69 12/16/2019 12:00 PM EST Plan of Treatment Not on file Insurance [facility]
--- OUTSIDE RECORDS SUMMARY | 2025-07-27 11:39 | XMS_ITS | Clinical Summary ---
Author Organization [facility] Address [address] [place] [address] Care Team Providers Care Home Economics Teacher Name Role Phone Unavailable Primary Care Provider [...]
--- OUTSIDE RECORDS SUMMARY | 2025-07-27 11:39 | XMS_ITS | Clinical Summary ---
Author Organization [facility] Address [facility] [id number] [address] [place] [id number] Care Team Providers Care Solar Photovoltaic Installer Name Role Phone Unavailable Primary Care Provider [...]
--- OUTSIDE RECORDS SUMMARY | 2025-07-27 11:39 | XMS_ITS | Patient Health Record ---
Author Organization [facility] Address [address] [place] [address] Care Team Providers Care Business Services Sales Agent Name Role Phone Mehul Veronica Primary Care Provider Tea Avila [phone] Allergies Allergen (clinical drug ingredient) Drug/Non Drug Allergy documented on EMR Reaction Allergy Type Onset Date Status sulfamethoxazole / trimethoprim Bactrim Vaginal Swelling Drug Allergy Active Latex Latex Swelling, Hives Allergy Active Results Component Value Reference Range Notes XR ankle LT min 3V Reviewed date:01/25/2025 03:54:37 PM Interpretation: Performing Lab: Notes/Report: Source Facility: [place] [address] XRay Report Signed Patient: JOSEPHINE JANG MR#: [id number] : 1980 Acct:[id number] Age/Sex: 44 / F ADM Date: 12/16/24 Loc: RAD Attending Dr: Tea Avila D.P.M. Ordering Physician: Tea Avila D.P.M. Date of Service: 12/16/24 Procedure(s): XR ankle LT min 3V Accession Number(s): [id number] cc: Tea Avila D.P.M.; Angelica Veronica M.D. [place] [address] Patient Name: JOSEPHINE JANG MRN: [facility]:[id number] date: 1980 Sex: F Assigned Patient Location: [facility] Current Patient Location: RAD Accession/Order Number: [id number] Exam Date: 12/17/2024 22:29 Report Date: 12/17/2024 22:30 At the request of: TEA AVILA DPMere Procedure: XR ankle LT min 3V XR ankle LT min 3V 12/16/2024 10:14 AM SIGNS AND SYMPTOMS: Left ankle pain PROTOCOL: Frontal, lateral, and oblique radiographs of the left ankle COMPARISON: None. FINDINGS: The ankle mortise is preserved. There is no evidence of fracture or dislocation. No significant soft tissue swelling. XR/XR ankle LT min 3V IMPRESSION: No acute bony injury. No significant soft tissue swelling. Impression dictated by: Donato Rockwell M.D.12/17/2024 10:30 PM Dictation Location: [place] [address] Electronically authenticated by: [id number] Y Date: 12/17/2024 22:30 Dictated By: Donato Rockwell M.D. Signed By: 12/17/242232 DD/ 29 TD/TT: Frontload Driver: MIKA T3 Reviewed date:01/25/2025 03:54:37 PM Interpretation: Performing Lab: Notes/Report: [facility] , Free T3 1.83 2.18-3.98 pg/mL Performing Lab: see note ML - [facility] LB PROF 14(COMP METB) Reviewed date:01/25/2025 03:54:37 PM Interpretation: Performing Lab: Notes/Report: [facility] , Sodium 141 136-145 mmol/L Potassium 4.3 3.5-5.1 mmol/L Chloride 105 98-107 mmol/L Carbon Dioxide 28.4 21.0-32.0 mmol/L Anion Gap 11.9 Glucose 97 74-106 mg/dL Blood Urea Nitrogen 15.0 7.0-18.0 mg/dL Creatinine 0.78 0.55-1.02 mg/dL Estimated GFR ( Patricia >60 >=60 mL/mi n/1.73m 2 Estimated GFR (Non- Felicity >60 >=60 mL/mi n/1.73m 2 BUN Creatinine Ratio 19.2 Calcium 8.9 8.5-10.1 mg/dL Bilirubin Total 0.4 0.2-1.0 mg/dL Aspartate Amino Transferase 26 15-37 U/L Alanine Aminotransferase 56 14-59 U/L Alkaline Phosphatase 118 46-116 U/L Total Protein 7.6 6.4-8.2 g/dL Albumin Level 3.9 3.4-5.0 g/dL Globulin 3.7 Albumin Globulin Ratio 1.1 Performing Lab: see note ML - [facility] LB T4 Reviewed date:01/25/2025 03:54:37 PM Interpretation: Performing Lab: Notes/Report: [facility] , T4 Thyroxine 8.10 4.80-13.90 ug/dL Performing Lab: see note ML - [facility] LB TSH Reviewed date:01/25/2025 03:54:37 PM Interpretation: Performing Lab: Notes/Report: [facility] , Thyroid Stimulating Hormone 0.396 0.358-3.740 u IU/mL Performing Lab: see note ML - [facility] LB MR head/brain wo con Reviewed date:06/01/2025 06:18:11 PM Interpretation: Performing Lab: Notes/Report: Source Facility: [place] [address] Magnetic Resonance Report Signed Patient: JOSEPHINE JANG MR#: [id number] : 1980 Acct:[id number] Age/Sex: 44 / F ADM Date: 06/01/25 Loc: MRI Attending Dr: Angelica Veronica M.D. Ordering Physician: Angelica Veronica M.D. Date of Service: 06/01/25 Procedure(s): MR head/brain wo con Accession Number(s): [id number] cc: Angelica Veronica M.D. [place] [address] Patient Name: JOSEPHINE JANG MRN: [id number] date: 1980 Sex: F Assigned Patient Location: MRI Current Patient Location: MRI Accession/Order Number: [id number] Exam Date: 06/01/2025 14:56 Report Date: 06/01/2025 15:01 At the request of: ANGELICA VERONICA MD Procedure: MR head/brain wo con MR head/brain wo con 06/01/2025 2:20 PM SIGN AND SYMPTOMS: Severe migraine headaches PROTOCOL: Multiplanar multisequence MR images of the brain without IV contrast COMPARISON: None. FINDINGS: Extra axial spaces: Age appropriate. Hemorrhage: None. Ventricular system: Within normal limits. Basal cisterns: Within normal limits and not effaced. Cerebral parenchyma: Normal in signal. Midline shift: None.. Cerebellum: Within normal limits. Brainstem: Within normal limits. OTHER: Calvarium: Normal marrow signal. Vascular system: Satisfactory flow voids within the anterior and posterior circulation. Visualized Paranasal sinuses: Within normal limits. Visualized Orbits: Within normal limits. Visualized upper cervical spine: Within normal limits. Sella and skull base: Within normal limits. MR/MR head/brain wo con IMPRESSION: No acute intracranial pathology. Impression dictated by: Donato Rockwell M.D. 06/01/2025 3:01 PM Dictation Location: [place] [address] Electronically authenticated by: [id number] Y Date: 06/01/2025 15:01 Dictated By: Donato Rockwell M.D. Signed By: 06/01/25 1503 DD/ 1501 TD/TT: Frontload Driver: US extremity nonvascular LT Reviewed date:12/03/2024 04:51:40 PM Interpretation: Performing Lab: Notes/Report: Source Facility: [place] [address] [place] [address] Ultrasound Report Signed Patient: JOSEPHINE JANG MR#: [id number] : 1980 Acct:[id number] Age/Sex: 44 / F ADM Date: 12/03/24 Loc: US Attending Dr: Jodi Yo M.D. Ordering Physician: Jodi Yo M.D. Date of Service: 12/03/24 Procedure(s): US extremity nonvascular LT Accession Number(s): [id number] cc: Angelica Veronica M.D.; Jodi Yo M.D. The [place] [id number] Patient Name: JOSEPHINE JANG MRN: [id number] date: 1980 Sex: F Assigned Patient Location: Current Patient Location: US Accession/Order Number: [id number] Exam Date: 12/03/2024 14:00 Report Date: 12/03/2024 14:35 At the request of: JODI YO Procedure: US extremity nonvascular LT EXAMINATION: US extremity nonvascular LT HISTORY: Localized Swelling Left Lower Limb ; lateral ankle swelling for 3 weeks history of surgery COMPARISON: No relevant comparison available. FINDINGS: 1. Geographic shaped hypoechoic area within the subcutaneous tissues overlying the lateral malleolus, 3.1 x 1.5 1.4 cm. No appreciable internal blood flow on color Doppler. US/US extremity nonvascular LT IMPRESSION: 1. Suspect postoperative hematoma versus seroma. Abscess cannot be completely excluded. Electronically authenticated by: BRYANT GARAY Date: 12/03/2024 14:35 Dictated By: Bryant Garay M.D. Signed By: 12/03/24 1437 DD/ 1435 TD/TT: Frontload Driver: Reason For Referral No Information Medications Medication SIG (Take, Route, Frequency, Duration) [...] BY MOUTH EVERY DAY; Duration: 30 Active ALPRAZolam 0.5 MG 1/2 - 1 [...] DAY NEEDED FOR ANXIETY; Duration: 90 Active Imitrex 100 MG 1 tablet at least 2 hours between doses as needed Orally Twice a day 05/20/2025 Active Social History Tobacco Use: Social History [...] in quitting? Not ready to manan t Alcohol Screen (Audit-C) Question Answer Notes Did you have a drink contain ing alcohol in the past year? Yes How often did you have 6 or more drinks on one occasion in the past year? Never (0 point) How many drinks did you have on a typical day when you were drinking in the past year? 1 or 2 drinks (0 point) How often did you have a dri nk containing alcohol in the past year? Monthly (2 points) Points 2 Interpretation Negative AUDIT-C (Standard) Question Answer Notes Did you have a drink containing alcohol in the p ast year? 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) Active confirmed Problem Fatigue (15493466) Fatigue (R53.83) Active conf irmed Problem Hyperlipidemia (84186876) Hyperlipidemia (E78.5) Active confirmed Problem Hypertension (07427669) Hypertension (I10) Active confirmed Problem Hypothyroidism (71729422) Hypothyroidism (E03.9) Active confirmed Problem Anxiety (55115968) Anxiety (F41.9) Active confi rmed Problem Degenerative arthritis (569400043) Degenerative arthritis (M19.90) Active confirmed Problem Elevated liver enzymes level (356901527) Elevated liver enzymes (R74.8) Active confirmed Problem Migraine (65966840) Migraine (G43.909) Active confirmed Problem Well adult (508629832) Well adult (Z00.00) Active confirmed Problem Right lower quadrant pain (145421793) Right lower quadrant abdominal pain (R10.31) Active confirmed Problem Acquired hypothyroidism (030728511) Acquired hypothyroidism (E03.9) Active confirmed Problem Abnormal glucose level (408469703) Abnormal glucose (R73.09) Active confirmed Problem Multiple nodules of lung (967320308) Lung nodules (R91.8) Active confirmed Problem Arthralgia of the ankle and/or foot (808652958) Left ankle pain (M25.572) Active confirmed Problem Gastroenteritis (18466570) Gastroenteritis (K52.9) Active confirmed Problem Right lower lobe pneumonia (598055152) Right lower lobe pneumonia (J18.9) Active confirmed Problem Internal derangement of knee (71794925) Internal derangement of knee (M23.90) Active confirmed Problem Edema (552435246) Arm edema (R60.0) Active conf irmed Problem Impingement syndrome of shoulder region (219403746) Shoulder impingement syndrome, right (M75.41) Active confirmed Vital Signs Heart Rate 86 /min 12/16/2024 Temperature 98.7 degrees Fahrenheit 07/27/2025 Blood pressure diastolic 68 mm Hg 07/27/2025 Oximetry 97 % 12/16/2024 Height 64 in 07/27/2025 Blood pressure systolic 128 mm Hg 07/27/2025 Weight 159.2 lbs 07/27/2025 BMI 27.32 kg/m2 07/27/2025 Encounters Encounter Location Date Provider Diagnosis [facility] (PODIAT[facility]) [address] [place] [address] [place] [address] 12/16/2024 [facility] Left ankle pain M25.572 ; Neoplasm of unspecified behavior of bone, soft tissue, and skin D49.2 and Other benign neoplasm of skin, unspecified D23.9 [place] [address] [place] [address] 01/01/2025 Mehul Hoy Cellulitis L03.90 [place] [address] [place] [address] 03/13/2025 Mehul Hoy UTI (urinary tract infection), uncomplicated N39.0 and Dysuria R30.0 [facility] [address] [place] [address] 05/20/2025 Meuhl Hoy Migraine G43.909 [place] [address] [place] [address] 07/27/2025 Mehul Hoy Gastroenteritis K52. 9 and Right lower quadrant abdominal pain R10.31 [facility] [address] [place] [address] 05/21/2025 Mehul Checoy Migraine G43.909 [facility] [address] [place] [address] 09/29/2024 Mehul Checodonaldo Well adult Z00.00 [facility] [address] [place] [address] 10/30/2024 Mehul Veronica [facility] [address] [facility] [place] [address] 10/30/2024 Mehul Checodonaldo [facility] [address] [place] [address] 11/24/2024 Mehul Veronica [facility] [address] [place] [address] 12/28/2024 Mehul Veronica [facility] [address] [place] [address] 01/19/2025 Mehul Kesslerdonaldo Hypothyroidism E03.9 and Weight gain R63.5 [facility] [address] [place] [address] 01/25/2025 Mehul Veronica [facility] [address] [place] [address] 02/09/2025 Mehul Veronica [facility] [address] [place] [address] 06/01/2025 Mehul Veronica Assessments Encounter Date Diagnosis (ICD Code) Assessment Notes Treatment Notes Treatment Clinical Notes Section Notes 12/16/2024 Left ankle pain (ICD-10 - M25.572) 12/16/2024 Neoplasm of unspecified behavior of bone, soft tissue, and skin (ICD-10 - D49.2) Patient is a pleasant 44-year-old female who underwent excision of a skin lesion which is reportedly a dermatofibroma by Dr. Yo nearly 3 years ago. She notes that the skin lesion has returned but is not itself necessarily painful however the mass underlying is painful. An ultrasound was ordered by Dr. Yo which demonstrated a fluid collection which may be consistent as reported with a hematoma, seroma or abscess. She has no history of trauma therefore hematoma/seroma is less likely and she has no sign of infection therefore I believe abscess is very unlikely as patient feels systemically well and has no local erythema. Today, I ordered an MRI given the history of recurrent skin lesion now has new characteristics. I explained this all to the patient who expressed understanding. I also discussed with the patient that my employment with the [facility] is over on December 31. If she is unable to get her MRI until after this date then I could call her with the findings. If referral is required depending on the findings I would provide that service at that time and if she has any issue after December 31 she is welcome to call this office or my new office once that is established 05/20/2025 Migraine (ICD-10 - G43.909) 05/21/2025 Migraine (ICD-10 - G43.909) 07/27/2025 Gastroenteritis (ICD-10 - K52.9) Get plenty of rest. Stay hydrated by sucking on ice chips or taking small sips of water. You can also try drinking clear soda, clear broths or noncaffeinated sports drinks. Stop eating solid foods for a few hours to let your stomach settle. East back into eating by eating bland, rtln-qw-yqigjb foods like crackers, toast, gelatin, bananas, rice and chicken. Try to avoid foods/substances including dairy products, caffeine, alcohol, nicotine and fatty or highly seasoned foods. Medications such as ibuprofen or tylenol can make your stomach more upset, so use sparingly if at all. Also avoid krds-two-wbrxecq anti-diarrheal medications because it can make it harder for your body to eliminate the virus. 07/27/2025 Right lower quadrant abdominal pain (ICD-10 - R10.31) 09/29/2024 Well adult (ICD-10 - Z00.00) 01/19/2025 Hypothyroidism (ICD-10 - E03.9) 01/19/2025 Weight gain (ICD-10 - R63.5) 01/01/2025 Cellulitis (ICD-10 - L03.90) 03/13/2025 UTI (urinary tract infection), uncomplicated (ICD-10 - N39.0) Drink plenty of water. Avoid drinks like coffee, alcohol and soft frinks, as these can irritate your bladder and aggravate your frequent or urgent need to urinate. Apply a warm heating pad to your abdomen to minimize bladder pressure or discomfort. You have been prescribed antibiotics for a urinary tract infection. Antibiotics may bother your stomach, so try taking them with a light meal (unless instructed otherwise by your pharmacist). It is important to take them until they are finished. You can use jrum-rvj-gjkkrtu acetaminophen or ibuprofen if needed for pain. You should follow up with your Primary Care Physician or return to clinic if not improving in the next 3-5 days. 03/13/2025 Dysuria (ICD-10 - R30.0) 12/16/2024 Other benign neoplasm of skin, unspecified (ICD-10 - D23.9) 05/20/2025 Other Take NSAIDs as needed for pain. Discussed avoiding headache triggers and improiving diet and sleep habits to prevent headaches. Plan Of Treatment Pending Test Test Name Order Date CMP (COMPLETE METABOLIC PANEL) 3 HEMOGLOBIN A1C (GLYCO) 08/24/2023 LIPID PANEL (CHOL/TRIG/HDL/LDL) 08/24/20 CBC WITH DIFF 08/24/2023 XR Ankle LT (3 views) * (164) 12/16/2024 MAMM Mammograms CAD 08/24/2023 MRI Ankle LT w/o contrast (Hind Foot) US Upper Extremity LT 03/14/2024 T3 FREE, T4 FREE and TSH 03/12/2024 CMP - Comprehensive Metabolic Panel 12/28 CBC AUTO DIFF 07/27/2025 CBC AUTO DIFF 12/13/2023 HEPATITIS PANEL, ACUTE 07/15/2024 PROF 14(COMP METB) 07/27/2025 SED RATE WESTERGREN 07/27/2025 THYROID PROFILE WITH TSH 12/13/2023 THYROID PROFILE WITH TSH 12/13/2023 CT CHEST WO CON 08/24/2023 MRI BRAIN WO CON 05/20/2025 MRI KNEE RT WO CON 07/15/2024 MRI KNEE RT WO CON 07/16/2024 US APPENDIX 07/27/2025 US PELVIS 07/27/2025 THYROID PANEL (T4/TSH/FREE T3) 5 THYROID PANEL (T4/TSH/FREE T3) 3 THYROID PANEL (T4/TSH/FREE T3) 5 THYROID PANEL (T4/TSH/FREE T3) 4 Blood Culture 1 07/27/2025 Blood Culture 2 07/27/2025 Insurance Providers Payer Name Payer Address Payer Phone Subscriber Number Group Number Insured Name Patient Relationship to Insured Coverage Start Date Coverage End Date [employer] P[employer] LOCAL PLAN [address] [place] [phone] [id number] Josephine Jang Self - patient is the insured Medications Administered Medication Instructions Date of Administration Dosage Notes Ketorolac Tromethamine 05/20/2025 60 mg Ketorolac Tromethamine 05/21/2025 60 mg Orphenadrine Citrate 05/20/2025 60 mg Orphenadrine Citrate 05/21/2025 60 mg Promethazine 25mg 05/20/2025 1 mL Promethazine 25mg 05/21/2025 1 mL Medical (General) History Medical History History ICD Code Pneumonia J18.9 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 Yo left ankle 05.03.2022 Exploratory Laproscopy Leap Procedure Gall bladder Removal Hysterectomy- Partial
[2025-07-27 12:11] LABS: Hematocrit 42.0 % (36.0-48.0); Hemoglobin 14.4 g/dL (12.0-16.0); Immature Granulocytes Abs Auto 0.07 10^3/uL (0.00-0.03); Immature Granulocytes Pct Auto 0.5 % (0.0-0.5); Lymphocytes Absolute Auto 3.9 10^3/uL (1.2-3.8); Mean Corpuscular HGB Conc 34.3 g/dL (29.9-35.2); Mean Corpuscular Hemoglobin 31.0 pg (26.7-34.0); Mean Corpuscular Volume 90.5 fL (81.0-99.0); Platelet Count 359 10^3/uL (150-450); Red Blood Count 4.64 10^6/uL (4.20-5.40); White Blood Count 12.8 10^3/uL (4.0-11.0)
--- NOTE | 2025-07-27 12:35 | US_ITS ---
The [address] [address] Patient Name: LUCIA HERNDON MRN: [id number] date: 1980 Sex: F Assigned Patient Location: US Current Patient Location: US Accession/Order Number: [id number] Exam Date: 07/27/2025 12:36 Report Date: 07/27/2025 13:34 At the request of: ANGELICA VERONICA MD Procedure: US pelvis w/ transvaginal Pelvic ultrasound. Reason for exam: Right lower quadrant pain for 3 days Comparison: none Technique: Transabdominal imaging of the uterus and ovaries was performed. Additional spectral Doppler analysis of the ovaries was also obtained. Findings: Uterus has been removed. Right ovary measures 3.0 x 1.4 x 1.7 cm. Left ovary measures 2.4 x 1.0 x 1.0 cm. Normal arterial and venous Doppler waveforms. No adnexal mass. No free fluid. US/US pelvis w/ transvaginal Impression: Unremarkable pelvic ultrasound. Impression dictated by: Fedrinand Peralta Jr., D.O. 07/27/2025 1:34 PM Dictation Location: [place] [address] Electronically authenticated by: [id number] Y Date: 07/27/2025 13:34
--- NOTE | 2025-07-27 12:36 | US_ITS ---
The [address] [address] Patient Name: LUCIA HERNDON MRN: [id number] date: 1980 Sex: F Assigned Patient Location: US Current Patient Location: US Accession/Order Number: [id number] Exam Date: 07/27/2025 12:36 Report Date: 07/27/2025 13:29 At the request of: ANGELICA VERONICA MD Procedure: US appendix Appendix ultrasound. Reason for exam: Right lower quadrant pain for 3 days. COMPARISON: None. TECHNIQUE: Grayscale and color Doppler images of the right lower quadrant were obtained. FINDINGS: The appendix is not clearly visualized. No secondary evidence of acute appendicitis is seen. US/US appendix IMPRESSION: No ultrasound evidence of appendicitis. The appendix is not clearly seen. If further evaluation is needed, CT is recommended Impression dictated by: Ferdinand Peralta Jr., D.O. 07/27/2025 1:29 PM Dictation Location: [place] [address] Electronically authenticated by: [id number] Y Date: 07/27/2025 13:29
[2025-07-27 12:43] LABS: Alanine Aminotransferase 38 U/L (14-59); Albumin Globulin Ratio 1.0; Albumin Level 4.2 g/dL (3.4-5.0); Alkaline Phosphatase 110 U/L (46-116); Anion Gap 18.0; Aspartate Amino Transferase 21 U/L (15-37); Blood Urea Nitrogen 11.0 mg/dL (7.0-18.0); Calcium 8.8 mg/dL (8.5-10.1); Carbon Dioxide 21.7 mmol/L (21.0-32.0); Chloride 104 mmol/L (98-107); Estimated GFR (African America >60 (>=60 mL/min/1.73m^2); Estimated GFR (Non-African Ame >60 (>=60 mL/min/1.73m^2); Free T3 1.94 pg/mL (2.18-3.98); Globulin 4.2 g/dL; Glucose 108 mg/dL (74-106); Potassium 3.7 mmol/L (3.5-5.1); Sodium 140 mmol/L (136-145); Thyroid Stimulating Hormone 0.705 uIU/mL (0.358-3.740); Total Protein 8.4 g/dL (6.4-8.2)
== END 2025-07-27 11:37 | disposition home or self-care (01) ==
LOC: US 11:37
PROVIDERS: PCP Family Medicine; Visit Provider Family Medicine
DX: R10.31 Right lower quadrant pain (principal); K52.9 Noninfective gastroenteritis and colitis, unspecified; R53.83 Other fatigue
CPT/HCPCS: 36415; 76705; 76830; 76856; 80053; 84436; 84443; 84481; 85025; 85652; 87040

== ENCOUNTER 2025-08-10 07:40 | Outpatient (OUT) | payer BC, SELFPAY ==
--- OUTSIDE RECORDS SUMMARY | 2025-02-05 09:50 | XMS_ITS ---
Author Organization [facility] e [facility] Address [address] [place] [address] Care Team Providers Care Parachute Crown Sewer Name Role Phone Corky Ta Unavailable [phone] REASON FOR VISIT LT ANKLE Encounters Encounter Location Date Provider Diagnosis [facility] [facility] [address] [place] [address] 02/05/2025 Corky Ta Plan Of Treatment No Information Progress Notes * ISAURO HERNDONOB:1980 (45 yo F)Acc No.[id number]:02/05/2025 Patient: LUCIA PORTILLO Provider: Veronika Ta DPM :1980 A ge:44 Y S ex:Female Date:02/05/2025 Address:[address] Subjective: * Chief Complaints: * 1 . LT ANKLE. * Medical History: Objective: * Vitals: Assessment: Plan: * Treatment: Forms: * Images: * Electronic signature of Kristy Ta DPM on 08/10/2025 at 07:42 AM EDT Sign off status: Pending * Provider: Veronika Ta DPM Date: 0 02/05/2025 Generated for John navarro/Humaira/Gwendolyn on: 1 07:42 AM EDT
--- OUTSIDE RECORDS SUMMARY | 2025-07-27 06:45 | XMS_ITS ---
Author Organization The [facility] in [place] Address [address] [place] [address] Care Team Providers Care Assistant Professor Of Biochemistry Name Role Phone Mehul Veronica Primary Care Provider Allergies Allergen (clinical drug ingredient) Drug/Non Drug Allergy documented on EMR Reaction Allergy Type Onset Date Status sulfamethoxazole / trimethoprim Bactrim Vaginal Swelling Drug Allergy Active Latex Latex Swelling, Hives Allergy Active Results Component Value Reference Range Notes Blood Culture 2 Reviewed date:08/02/2025 02:13:44 PM Interpretation: Performing Lab: Notes/Report: [facility] , Blood Culture 2 See Below For Report NG5D NO GROWTH AT 5 DAYS.^NO GROWTH AT 5 DAYS. Blood Culture 2 Performing Lab: see note ML - [facility] LB Blood Culture 1 Reviewed date:08/02/2025 02:13:44 PM Interpretation: Performing Lab: Notes/Report: [facility] , Blood Culture 1 See Below For Report Blood Culture 1 NG5D NO GROWTH AT 5 DAYS.^NO GROWTH AT 5 DAYS. Performing Lab: see note ML - [facility] LB PROF 14(COMP METB) Reviewed date:07/27/2025 01:52:29 PM Interpretation: Performing Lab: Notes/Report: [facility] , Sodium 140 136-145 mmol/L Potassium 3.7 3.5-5.1 mmol/L Chloride 104 98-107 mmol/L Carbon Dioxide 21.7 21.0-32.0 mmol/L Anion Gap 18.0 Glucose 108 74-106 mg/dL Blood Urea Nitrogen 11.0 7.0-18.0 mg/dL Creatinine 0.62 0.55-1.02 mg/dL Estimated GFR ( Patricia >60 >=60 mL/min/1.73m 2 Estimated GFR (Non- Felicity >60 >=60 mL/min/1.73m 2 BUN Creatinine Ratio 17.7 Calcium 8.8 8.5-10.1 mg/dL Bilirubin Total 0.3 0.2-1.0 mg/dL Aspartate Amino Transferase 21 15-37 U/L Alanine Aminotransferase 38 14-59 U/L Alkaline Phosphatase 110 46-116 U/L Total Protein 8.4 6.4-8.2 g/dL Albumin Level 4.2 3.4-5.0 g/dL Globulin 4.2 Albumin Globulin Ratio 1.0 Performing Lab: see note ML - [facility] LB CBC AUTO DIFF Reviewed date:07/27/2025 01:52:29 PM Interpretation: Performing Lab: Notes/Report: [facility] , White Blood Count 12.8 4.0-11.0 10 3/uL Red Blood Count 4.64 4.20-5.40 10 6/uL Hemoglobin 14.4 12.0-16.0 g/dL Hematocrit 42.0 36.0-48.0 % Mean Corpuscular Volume 90.5 81.0-99.0 fL Mean Corpuscular Hemoglobin 31.0 26.7-34.0 pg Mean Corpuscular HGB Conc 34.3 29.9-35.2 g/dL Red Cell Distribution Width 13.0 11.0-15.0 % Platelet Count 359 150-450 10 3/uL Mean Platelet Volume 9.1 9.5-13.5 fL Neutrophils Percent Auto 62.2 43.0-75.0 % Lymphocytes Percent Auto 30.6 20.5-60.0 % Monocytes Percent Auto 4.6 1.7-12.0 % Eosinophils Percent Auto 1.6 0.9-7.0 % Basophils Percent Auto 0.5 0.2-2.0 % Immature Granulocytes Pct Auto 0.5 0.0-0.5 % Neutrophils Absolute Auto 7.9 1.4-6.5 10 3/uL Lymphocytes Absolute Auto 3.9 1.2-3.8 10 3/uL Monocytes Absolute Auto 0.6 0.3-0.8 10 3/uL Eosinophils Absolute Auto 0.2 0.0-0.7 10 3/uL Basophils Absolute Auto 0.1 0.0-0.1 10 3/uL Immature Granulocytes Abs Auto 0.07 0.00-0.03 10 3/uL Performing Lab: see note ML - [facility] LB US APPENDIX Reviewed date:07/27/2025 01:52:29 PM Interpretation: Performing Lab: Notes/Report: Source Facility: [place] [address] Ultrasound Report Signed Patient: JOSEPHINE JANG MR#: [id number] : 1980 Acct:[id number] Age/Sex: 45 / F ADM Date: 07/27/25 Loc: US Attending Dr: Napoleon Veronica M.D. Ordering Physician: Napoleon Veronica M.D. Date of Service: 07/27/25 Procedure(s): US appendix Accession Number(s): [id number] cc: Napoleon Veronica M.D. [place] [address] Patient Name: JOSEPHINE JANG MRN: [id number] date: 1980 Sex: F Assigned Patient Location: Current Patient Location: Accession/Order Number: [id number] Exam Date: 07/27/2025 12:36 Report Date: 07/27/2025 13:29 At the request of: NAPOLEON VERONICA MD Procedure: US appendix Appendix ultrasound. Reason for exam: Right lower quadrant pain for 3 days. COMPARISON: None. TECHNIQUE: Grayscale and color Doppler images of the right lower quadrant were obtained. FINDINGS: The appendix is not clearly visualized. No secondary evidence of acute appendicitis is seen. US/US appendix IMPRESSION: No ultrasound evidence of appendicitis. The appendix is not clearly seen. If further evaluation is needed, CT is recommended Impression dictated by: Ferdinand Peralta Jr., D.O. 07/27/2025 1:29 PM Dictation Location: [place] [address] Electronically authenticated by: [id number] Y Date: 07/27/2025 13:29 Dictated By: Ferdinand Peralta M.D. 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 Said the painfeels like it does after having abd surgery Medications Medication SIG (Take, Route, Frequency, Duration) Notes Start Date End Date Status Pantoprazole Sodium 40 MG TAKE 1 TABLET BY MOUTH EVERY DAY; Duration: 90 Active QUEtiapine Fumarate 100 MG TAKE 1 TABLET BY MOUTH EVERY DAY AT BEDTIME FOR 30 DAYS; Duration: 30 Active Synthroid 75 MCG 1 tablet in the morn ing on an empty stomach Orally Once a day; Duration: 30 days 01/18/2024 Active valACYclovir HCl 500 MG TAKE 1 TABLET BY MOUTH EVERY DAY; Duration: 30 Active Imitrex 100 MG 1 tablet at least 2 hours between doses as needed Orally Twice a day 05/20/2025 Active ALPRAZolam 0.5 MG 1/2 - 1 tablet Orall y Twice a day; Duration: 7 days PRN 09/29/2024 Active Desvenlafaxine Succinate ER 100 MG TAKE 1 TABLET BY MOUTH EVERY DAY; Duration: 90 Active Diclofenac Sodium 75 MG 1 tablet as need ed Orally Twice a day; Duration: 30 days 07/15/2024 Active hydrOXYzine Pamoate 25 MG TAKE 1 CAPSULE BY MOUTH FOUR TIMES A DAY NEEDED FOR ANXIETY; Duration: 90 Active Social History Tobacco Use: Social History Observation Description Date Details (start date - stop date) Current Smoker NA - NA Tobacco Use/Smoking Question Answer Notes Patient is a current smoker How often do you smoke cigarettes? every day How many cigarettes a day do you smoke? 11-20 How soon after you wake up do you smoke your fir st cigarette? within 5 minutes Are you interested in quitting? Not ready to manan t AUDIT-C (Standard) Question Answer Notes Did you have a drink containing alcohol in the p ast year? No Points 0 Interpretation Negative Problems Problem Type SNOMED Code ICD Code Onset Dates Problem Status W/U Status Risk Notes Problem Gastroenteritis (50136720) Gastroenteritis (K52.9) Active confirmed Problem Right lower quadrant pain (454861172) Right lower quadrant abdominal pain (R10.31) Active confirmed Vital Signs Weight 159.2 lbs 07/27/2025 Height 64 in 07/27/2025 Blood pressure systolic 128 mm Hg 07/27/20 Blood pressure diastolic 68 mm Hg 025 Temperature 98.7 degrees Fahrenheit 07/27/20 BMI 27.32 kg/m2 07/27/2025 Encounters Encounter Location Date Provider Diagnosis [facility] [address] [place] [address] 07/27/2025 Mehul Hoy Gastroenteritis K52. 9 and Right lower quadrant abdominal pain R10.31 Assessments Encounter Date Diagnosis (ICD Code) Assessment Notes Treatment Notes Treatment Clinical Notes Section Notes 07/27/2025 Gastroenteritis (ICD-10 - K52.9) Get plenty of rest. Stay hydrated by sucking on ice chips or taking small sips of water. You can also try drinking clear soda, clear broths or noncaffeinated sports drinks. Stop eating solid foods for a few hours to let your stomach settle. East back into eating by eating bland, nagg-kt-bsqken foods like crackers, toast, gelatin, bananas, rice and chicken. Try to avoid foods/substances including dairy products, caffeine, alcohol, nicotine and fatty or highly seasoned foods. Medications such as ibuprofen or tylenol can make your stomach more upset, so use sparingly if at all. Also avoid amzi-eqq-wcomyym anti-diarrheal medications because it can make it harder for your body to eliminate the virus. 07/27/2025 Right lower quadrant abdominal pain (ICD-10 - R10.31) Plan Of Treatment Treatment Notes Assessment Notes Gastroenteritis Get plenty of rest. Stay hydrated by sucking on ice chips or taking small sips of water. You can also try drinking clear soda, clear broths or noncaffeinated sports drinks. Stop eating solid foods for a few hours to let your stomach settle. East back into eating by eating bland, hxrz-zi-mdjajy foods like crackers, toast, gelatin, bananas, rice and chicken. Try to avoid foods/substances including dairy products, caffeine, alcohol, nicotine and fatty or highly seasoned foods. Medications such as ibuprofen or tylenol can make your stomach more upset, so use sparingly if at all. Also avoid ypry-pzs-jfysepq anti-diarrheal medications because it can make it harder for your body to eliminate the virus. Pending Test Test Name Order Date SED RATE WESTERGREN 07/27/2025 US PELVIS 07/27/2025 THYROID PANEL (T4/TSH/FREE T3) Progress Notes * Madhav JANGOB:1980 (45 yo F)Acc No.[id number]:07/27/2025 Progress Note Patient: Josephine PORTILLO Provider: iKrk Veronica ([facility])MD :1980 A ge:45 Y S ex:Female Date:07/27/2025 Address:[address] [place] [address], [place], [id number] Check In:10:42 AM ESTCheck O ut:11:28 AM EST Subjective: * Chief Complaints: * P resents to office alone for c/o abd bloating, diarrhea 15 minutes after eating, nausea right sided pelvic pain x3 days.Also having pain to right shoulder that started Sunday as well. Said the pain feels like it does after having abd surgery * HPI: G eneral: + clammy and feels flush + Darrhea - more watery diarrhea - no weid sympotms - no blood. G astroenteritis: The patient complains of s ymptoms of the stomach flu. The symptoms have been present for 1 -2 days. The symptoms are m oderate. The patient h as not been exposed to sick contacts. Symptomatic treatment has included O TC medication. Associated symptoms include a bdominal pain, diarrhea, stomach cramps, nausea, vomiting, chills, fever. * ROS: G eneral/Constitutional: Recent Weight Gain d enies. S kin: Rash d enies. C ardiovascular: Edema d enies. P alpitations d enies. ? G astrointestinal: Comments S ee HPI for details. * Active Problem List I10 Hypertension Modified On:12/13/2023W/U Status:confirmed E03.9 Hypothyroidism Modified On:01/18/2024W/U Status:confirmed F41.9 Anxiety Modified On:08/24/2023W/U Status:confirmed M19.90 Degenerative arthrit is Modified On:08/24/2023U Status:confirmed M75.41 Shoulder impingement syndrome, right Modified On:08/24/2023 Status:confirmed Z00.00 Well adult Modified On:08/24/2023U Status:confirmed E78.5 Hyperlipidemia Modified On:12/13/2023U Status:confirmed E03.9 Acquired hypothyroid ism Modified On:12/13/2023U Status:confirmed R53.83 Fatigue Modified On:12/13/2023U Status:confirmed R73.09 Abnormal glucose Modified On:12/13/2023U Status:confirmed J18.9 Right lower lobe pne umonia Modified On:12/17/2023U Status:confirmed R60.0 Arm edema Modified On:03/14/2024 Status:confirmed R91.8 Lung nodules Modified On:04/28/2024 Status:confirmed R74.8 Elevated liver enzym es Modified On:07/15/2024U Status:confirmed M23.90 Internal derangement of knee Modified On:07/15/2024U Status:confirmed M25.572 Left ankle pain Modified On:12/10/2024U Status:confirmed 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 Yo left ankle 05.03.2022 * Hospitalization/Major Diagno stic Procedure: * Family History: F ather: alive, Rheumatoid Arthritis, bladder cancer, neuropathy, anemia. M other: alive, Hypercholesterolemia, thyroid disease. B rother(s): alive. S on(s): alive. D aughter(s): alive. 1 brother(s) - healthy. 1 son(s) , 1 daughter(s) - healthy. . * Social History: T obacco Use: T obacco Use/Smoking P atient is a c urrent smoker H ow often do you smoke cigarettes? e very day H ow many cigarettes a day do you smoke? 1 1-20 H ow soon after you wake up do you smoke your first cigarette? w ithin 5 minutes A re you interested in quitting? N ot ready to quit D rug/Alcohol: A LULU-C (Standard) D id you have a drink containing alcohol in the past year? N o P oints 0 I nterpretation N egative * Medications: T akingALPRAZolam 0.5 MG Tablet 1/2 - 1 tablet Orally Twice a day , Notes to Pharmacist: PRNDesvenlafaxine Succinate ER 100 MG Tablet Extended Release 24 Hour TAKE 1 TABLET BY MOUTH EVERY DAY Diclofenac Sodium 75 MG Tablet Delayed Release 1 tablet as needed Orally Twice a day hydrOXYzine Pamoate 25 MG Capsule TAKE 1 CAPSULE BY MOUTH FOUR TIMES A DAY NEEDED FOR ANXIETY Imitrex(SUMAtriptan Succinate) 100 MG Tablet 1 tablet at least 2 hours between doses as needed Orally Twice a day Pantoprazole Sodium 40 MG Tablet Delayed Release TAKE 1 TABLET BY MOUTH EVERY DAY QUEtiapine Fumarate 100 MG Tablet TAKE 1 TABLET BY MOUTH EVERY DAY AT BEDTIME FOR 30 DAYS Synthroid(Levothyroxine Sodium) 75 MCG Tablet 1 tablet in the morning on an empty stomach Orally Once a day valACYclovir HCl 500 MG Tablet TAKE 1 TABLET BY MOUTH EVERY DAY Medication List reviewed and reconciled with the patientTaking ALPRAZolam 0.5 MG Tablet 1/2 - 1 tablet Orally Twice a day , Notes to Pharmacist: PRNTaking Desvenlafaxine Succinate ER 100 MG Tablet Extended Release 24 Hour TAKE 1 TABLET BY MOUTH EVERY DAY Taking Diclofenac Sodium 75 MG Tablet Delayed Release 1 tablet as needed Orally Twice a day Taking hydrOXYzine Pamoate 25 MG Capsule TAKE 1 CAPSULE BY MOUTH FOUR TIMES A DAY NEEDED FOR ANXIETY Taking Imitrex(SUMAtriptan Succinate) 100 MG Tablet 1 tablet at least 2 hours between doses as needed Orally Twice a day Taking Pantoprazole Sodium 40 MG Tablet Delayed Release TAKE 1 TABLET BY MOUTH EVERY DAY Taking QUEtiapine Fumarate 100 MG Tablet TAKE 1 TABLET BY MOUTH EVERY DAY AT BEDTIME FOR 30 DAYS Taking Synthroid(Levothyroxine Sodium) 75 MCG Tablet 1 tablet in the morning on an empty stomach Orally Once a day Taking valACYclovir HCl 500 MG Tablet TAKE 1 TABLET BY MOUTH EVERY DAY Medication List reviewed and reconciled with the patient * Allergies: B actrim: Vaginal SwellingLatex: Swelling, Hivesno[Allergies Verified] Objective: * Vitals: W t:159.2lbs, Ht: 64 in, BP:128/68mm Hg, Temp:98.7F, BMI:27.32Index, Ht-cm: 162.56 cm, Wt-k.21 kg. * Examination: G eneral Examination: GENERAL APPEARANCE: well developed, well nourished, in no acute distress. ENT: Normocephalic , Atraumatic. EYES: pupils equal, round, reactive to light and accomodations, sclera non-icteric. EARS: normal. ORAL CAVITY: mucosa moist. THROAT: clear. LUNGS: clear to auscultation bilaterally. CARDIO: regular rate and rhythm, S1, S2 normal, no murmurs. ABDOMEN: R LQ tendnerss, + pain in mid abd and Rebound - pain in RLQ with palpation of LLQ - a + leg raise and + heel tap. SKIN: warm and dry, no suspicious lesions. EXTREMITIES: no clubbing, cyanosis, or edema. NEUROLOGIC: nonfocal, motor strength of upper/lower extremities intact , sensory exam intact. NECK/THYROID: neck supple, full range of motion, no cervical lymphadenopathy. Assessment: * Assessment: 1. G astroenteritis - K52.9 (Primary) 2 . R ight lower quadrant abdominal pain - R10.31 Plan: * Treatment: 2. R ight lower quadrant abdominal pain I maging: US PELVIS ?Imaging: US APPENDIX (Performed Date - 07/27/2025) * Labs: * L ab: PROF 14(COMP METB) (Collection Date & Time - 07/27/2025 12:00 PM) L ab: Blood Culture 2 (Collection Date & Time - 07/27/2025 11:56 AM) L ab: Blood Culture 1 (Collection Date & Time - 07/27/2025 11:50 AM) L ab: CBC AUTO DIFF (Collection Date & Time - 07/27/2025 12:00 PM) * Procedure Codes: * Preventive Medicine: Screenings/Counseling: B [place] ACTION PLAN Above Normal BMI Follow-up D ietary management education, guidance, and counseling See treatment section of progress note for complete details of management plan. * * Sign off status: Completed Visit Status: C HK (Check Out) true * Provider: Kirk Veronica (TTC)MD Date: 0 07/27/2025 Generated for Printi ng/Faxing/eTransmitting on: 07:42 AM EDT History and Physical Notes * HPI (History of Present Illness) Category Sub-Category Detail Notes Category Not es General + clammy and feels flush + Darrhea - more watery diarrhea - no weid sympotms - no blood Gastroenteritis The patient complain s of symptoms of the stomach flu The symptoms have been present for 1-2 d ays The symptoms are moderate The patient has not been exposed to sick contacts Symptomatic treatment has included OTC m edication Associated symptoms include abdominal pa in, diarrhea, stomach cramps, nausea, vomiting, chills, fever Examination Category Sub-Category Detail Notes Category Not es General Examination GENERAL APPEARANCE: well dev eloped, well nourished, in no acute distress ENT: Normocephalic , Atra umatic EYES: pupils equal, round, reactive to light and accomodations, sclera non-icteric EARS: normal THROAT: clear CARDIO: regular rate and rhy thm, S1, S2 normal, no murmurs LUNGS: clear to auscultatio n bilaterally ABDOMEN: RLQ tendnerss, + kiah n in mid abd and Rebound - pain in RLQ with palpation of LLQ - a + leg raise and + heel tap NEUROLOGIC: nonfocal, motor stre ngth of upper/lower extremities intact , sensory exam intact SKIN: warm and dry, no ge[place] picious lesions EXTREMITIES: no clubbing, cyanosi s, or edema ORAL CAVITY: mucosa moist NECK/THYROID: neck supple, full ra nge of motion, no cervical lymphadenopathy
--- OUTSIDE RECORDS SUMMARY | 2025-07-27 09:46 | XMS_ITS ---
Author Organization The [facility] in [place] Address [address] [place] [address] Care Team Providers Care Wood Club Neck Whipper Name Role Phone Mehul De Primary Care Provider REASON FOR VISIT review testing- SEE NOTE Medications Medication SIG (Take, Route, Fr equency, Duration) Notes Start Date End Date Status metroNIDAZOLE 500 MG 1 tablet Orally Thr ee times a day; Duration: 10 days 07/27/2025 Active Cipro 500 MG 1 tablet Orally BID; Duration: 10 days 07/27/2025 Active Diflucan 100 MG 1 tablet Orally chris y; Duration: 10 days 07/27/2025 Active Cytomel 5 MCG 1 tablet on an empty stomach Orally Once a day; Duration: 30 days 07/27/2025 Active Encounters Encounter Location Date Provider Diagnosis [facility] [address] [place] [address] 07/27/2025 Mehul De Right lower quadrant abdominal pain R10.31 ; Gastroenteritis K52.9 and Hypothyroidism E03.9 Assessments Encounter Date Diagnosis (ICD Code) Assessment Notes Treatment Notes Treatment Clinical Notes Section Notes 07/27/2025 Right lower quadrant abdominal pain (ICD-10 - R10.31) 07/27/2025 Gastroenteritis (ICD-10 - K52.9) 07/27/2025 Hypothyroidism (ICD-10 - E03.9) Plan Of Treatment Medication Medication Name Sig Start Date Stop Date Notes metroNIDAZOLE 500 MG 1 tablet Orally Thr ee times a day; Duration: 10 days 07/27/2025 Cipro 500 MG 1 tablet Orally BID; Duration: 10 days 07/27/2025 Diflucan 100 MG 1 tablet Orally chris y; Duration: 10 days 07/27/2025 Cytomel 5 MCG 1 tablet on an empty stomach Orally Once a day; Duration: 30 days 07/27/2025 Pending Test Test Name Order Date CT ABD and PELV W CON 07/27/2025 THYROID PANEL (T4/TSH/FREE T3) Progress Notes * Madhav HERNDONOB:1980 (45 yo F)Acc No.[id number]:07/27/2025 Patient: Josephine PORTILLO :1980 A ge:45 Y S ex:Female Address:[address] [place] [address], [place] [id number] * Refills Start Cytomel Tablet, 5 MCG, Orally, 30 Tablet, 1 tablet on an empty stomach, Once a day, 30 days, Refills=11 Start Cipro Tablet, 500 MG, Orally, 20 Tablet, 1 tablet, BID, 10 days, Refills=0 Start metroNIDAZOLE Tablet, 500 MG, Orally, 30 Tablet, 1 tablet, Three times a day, 10 days, Refills=0 Start Diflucan Tablet, 100 MG, Orally, 10 Tablet, 1 tablet, daily, 10 days, Refills=1 Subjective: * Chief Complaints: * r eview testing- SEE NOTE * Medical History: * Surgical History: * Hospitalization/Major Diagno stic Procedure: * Medications: Objective: * Vitals: * Physical Examination: Assessment: * Assessment: 1. R ight lower quadrant abdominal pain - R10.31 (Primary) 2 . G astroenteritis - K52.9 3 . H ypothyroidism - E03.9 Plan: * Treatment: 2. G astroenteritis I maging: CT ABD and PELV W CON 3. H ypothyroidism L AB: THYROID PANEL (T4/TSH/FREE T3) 4.?Others? Start Cytomel Tablet, 5 MCG, 1 tablet on an empty stomach, Orally, Once a day, 30 days, 30 Tablet, Refills 11;?Start Cipro Tablet, 500 MG, 1 tablet, Orally, BID, 10 days, 20 Tablet, Refills 0; Start metroNIDAZOLE Tablet, 500 MG, 1 tablet, Orally, Three times a day, 10 days, 30 Tablet, Refills 0;?Start Diflucan Tablet, 100 MG, 1 tablet, Orally, daily, 10 days, 10 Tablet, Refills 1. ? * Procedure Codes: * true * Date: Generated for John navarro/Humaira/Gwendolyn on: 1 07:42 AM EDT
--- OUTSIDE RECORDS SUMMARY | 2025-08-10 07:42 | XMS_ITS | Patient Health Record ---
Author Organization [facility] Address [address] [place] [address] Care Team Providers Care Analyst Programmer Name Role Phone Corky Ta [phone] Results Component Value Reference Range Notes C AYAD Reviewed date:02/27/2025 12:12:02 PM Interpretation: Performing Lab: Notes/Report: [place] [id number] Note Patient Name: LUCIA HERNDON : 1980 [facility] C AYAD See Below For Report Final No anaerobic growth after 72 hrs. OR Track Reviewed date:02/27/2025 12:12:02 PM Interpretation: Performing Lab: Notes/Report: [address] [address] Specimens Received From [facility] C Wound Reviewed date:02/27/2025 12:12:02 PM Interpretation: Performing Lab: Notes/Report: [address] [address] Note Patient Name: LUCIA HERNDON : 1980 [facility] C Wound See Below For Report Final No growth at 48 hours. 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 [place] [address] 01/22/2025 Corky Ta Skin ulcer of left ankle with fat layer exposed L97.322 Assessments Encounter Date Diagnosis (ICD Code) Assessment Notes Treatment Notes Treatment Clinical Notes Section Notes 01/12/2025 Skin ulcer of left ankle with fat layer exposed (ICD-10 - L97.322) Left lateral malleolar wound 01/22/2025 Skin ulcer of left ankle with fat layer exposed (ICD-10 - L97.322) Left ankle wound 01/12/2025 Other Left lateral malleolar wound Patient examined and evaluated Updated culture was obtained Application Unna boot compression therapy Patient fit dispensed offloading fracture boot Up to prescription for Silvadene cream Follow-up in 1 week Left lateral malleolar wound 01/22/2025 Other Patient examined and evaluated previous culture results were negative Patient will discontinue the boot implement Silvadene cream compression garments as well as offloading fracture boot for an additional week at 1 week may discontinue boot follow-up in 2 weeks for reevaluation all further questions concerns regard medical management were otherwise addressed Left ankle wound Plan Of Treatment Pending Test Test Name Order Date AEROBIC AND ANAEROBIC CULTURE 01/12/2025 Insurance Providers Payer Name Payer Address Payer Phone Subscriber Number Group Number Insured Name Patient Relationship to Insured Coverage Start Date Coverage End Date [facility] [address] [place] [address] [id number] LUCIA HERNDON Self - patient is the insured
--- OUTSIDE RECORDS SUMMARY | 2025-08-10 07:42 | XMS_ITS | Clinical Summary ---
Author Organization [facility] Address [id number] [address] [place] [id number] Care Team Providers Care Hospice Registered Nurse Name Role Phone Unavailable Primary Care Provider [...]
--- OUTSIDE RECORDS SUMMARY | 2025-08-10 07:42 | XMS_ITS | Clinical Summary ---
Author Organization [facility] Healthcare Address [address] [place] [address] Care Team Providers Care Vegetable Farming Supervisor Name Role Phone Unavailable Primary Care [...] Plan of Treatment Not on file Insurance [facility]
--- OUTSIDE RECORDS SUMMARY | 2025-08-10 07:43 | XMS_ITS | Patient Health Record ---
Author Organization [facility] in [place] Address [address] [place] [address] Care Team Providers Care Convertible Power Shovel Operator Name Role Phone Mehul Veronica Primary Care Provider Tea Avila [phone] Allergies Allergen (clinical drug ingredient) Drug/Non Drug Allergy documented on EMR Reaction Allergy Type Onset Date Status sulfamethoxazole / trimethoprim Bactrim Vaginal Swelling Drug Allergy Active Latex Latex Swelling, Hives Allergy Active Results Component Value Reference Range Notes CBC AUTO DIFF Reviewed date:07/27/2025 01:52:29 PM Interpretation: Performing Lab: Notes/Report: [facility] , White Blood Count 12.8 4.0-11.0 10 [...] 3/uL Performing Lab: see note ML - [facility] PROF 14(COMP METB) Reviewed date:07/27/2025 01:52:29 PM Interpretation: Performing Lab: Notes/Report: [facility] , Sodium 140 136-145 mmol/L Potassium 3.7 [...] Globulin Ratio 1.0 Performing Lab: see note - [facility] LB Blood Culture 1 Reviewed date:08/02/2025 02:13:44 PM Interpretation: Performing Lab: Notes/Report: [facility] , Blood Culture 1 See Below For Report Blood Culture 1 NG5D NO GROWTH AT 5 DAYS.^NO GROWTH AT 5 DAYS. Performing Lab: see note ML - [facility] LB Blood Culture 2 Reviewed date:08/02/2025 02:13:44 PM Interpretation: Performing Lab: Notes/Report: [facility] , Blood Culture 2 See Below For Report Blood Culture 2 NG5D NO GROWTH AT 5 DAYS.^NO GROWTH AT 5 DAYS. Performing Lab: see note ML - [facility] LB US APPENDIX Reviewed date:07/27/2025 01:52:29 PM Interpretation: Performing Lab: Notes/Report: Source Facility: [facility]-[address] [place] [address] [place] [address] Ultrasound Report Signed Patient: JOSEPHINE JANG MR#: [id number] : 1980 Acct:[id number] Age/Sex: 45 / F ADM Date: 07/27/25 Loc: US Attending Dr: Angelica Veronica M.D. Ordering Physician: Angelica Veronica M.D. Date of Service: 07/27/25 Procedure(s): US appendix Accession Number(s): [id number] cc: Angelica Veronica M.D. [place] [address] Patient Name: JOSEPHINE JANG MRN: [id number] date: 1980 Sex: F Assigned Patient Location: US Current Patient Location: Accession/Order Number: [id number] Exam Date: 07/27/2025 12:36 Report Date: 07/27/2025 13:29 At the request of: ANGELICA VERONICA MD Procedure: US appendix Appendix ultrasound. [...] Jr., D.O. 07/27/2025 1:29 PM Dictation Location: [place] [address] Electronically authenticated by: [id number] Y Date: 07/27/2025 13:29 Dictated By: Ferdinand Peralta M.D. Signed By: 07/27/25 1332 DD/ 1329 TD/TT: Power Bender Operator: FREE T3 Reviewed date:01/25/2025 03:54:37 PM Interpretation: Performing Lab: Notes/Report: [facility] , Free T3 1.83 2.18-3.98 pg/mL Performing Lab: see note ML - [facility] LB T4 Reviewed date:01/25/2025 03:54:37 PM Interpretation: Performing Lab: Notes/Report: [facility] , T4 Thyroxine 8.10 4.80-13.90 ug/dL Performing Lab: see note ML - [facility] LB TSH Reviewed date:01/25/2025 03:54:37 PM Interpretation: Performing Lab: Notes/Report: [facility] , Thyroid Stimulating Hormone 0.396 0.358-3.740 u IU/mL Performing Lab: see note ML - [facility] LB MR head/brain wo con Reviewed date:06/01/2025 06:18:11 PM Interpretation: Performing Lab: Notes/Report: Source Facility: [place] [address] [place] [address] Magnetic Resonance Report Signed Patient: JOSEPHINE JANG MR#: [id number] : 1980 Acct:[id number] Age/Sex: 44 / F ADM Date: 06/01/25 Loc: MRI Attending Dr: Angelica Veronica M.D. Ordering Physician: Angelica Veronica M.D. Date of Service: 06/01/25 Procedure(s): MR head/brain wo con Accession Number(s): [id number] cc: Angelica Veronica M.D. [place] [address] Patient Name: JOSEPHINE JANG MRN: [id number] date: 1980 Sex: F Assigned Patient Location: MRI Current Patient Location: MRI Accession/Order Number: [id number] Exam Date: 06/01/2025 14:56 Report Date: 06/01/2025 [...] Rockwell M.D. 06/01/2025 3:01 PM Dictation Location: [place] [address] Electronically authenticated by: [id number] Y Date: 06/01/2025 15:01 Dictated By: Donato Rockwell M.D. Signed By: 06/01/25 1503 DD/ 1501 TD/TT: Power Bender Operator: TSH Reviewed date:07/27/2025 01:52:29 PM Interpretation: Performing Lab: Notes/Report: [facility] , Thyroid Stimulating Hormone 0.705 0.358-3.740 u IU/mL Performing Lab: see note ML - [facility] LB T4 Reviewed date:07/27/2025 01:52:29 PM Interpretation: Performing Lab: Notes/Report: [facility] , T4 Thyroxine 9.30 4.80-13.90 ug/dL Performing Lab: see note ML - [facility] LB FREE T3 Reviewed date:07/27/2025 01:52:29 PM Interpretation: Performing Lab: Notes/Report: [facility] , Free T3 1.94 2.18-3.98 pg/mL Performing Lab: see note - [facility] LB PROF 14(COMP METB) Reviewed date:01/25/2025 03:54:37 PM Interpretation: Performing Lab: Notes/Report: [facility] , Sodium 141 136-145 mmol/L Potassium 4.3 3.5-5.1 mmol/L Chloride 105 98-107 mmol/L Carbon Dioxide 28.4 21.0-32.0 mmol/L Anion Gap 11.9 Glucose 97 74-106 mg/dL Blood Urea Nitrogen 15.0 7.0-18.0 mg/dL Creatinine 0.78 0.55-1.02 mg/dL Estimated GFR ( Patricia >60 >=60 mL/min/1.73m 2 Estimated GFR (Non- Felicity >60 >=60 mL/min/1.73m 2 BUN Creatinine Ratio 19.2 Calcium 8.9 8.5-10.1 mg/dL Bilirubin Total 0.4 0.2-1.0 mg/dL Aspartate Amino Transferase 26 15-37 U/L Alanine Aminotransferase 56 14-59 U/L Alkaline Phosphatase 118 46-116 U/L Total Protein 7.6 6.4-8.2 g/dL Albumin Level 3.9 3.4-5.0 g/dL Globulin 3.7 Albumin Globulin Ratio 1.1 Performing Lab: see note ML - [facility] LB XR ankle LT min 3V Reviewed date:01/25/2025 03:54:37 PM Interpretation: Performing Lab: Notes/Report: Source Facility: [facility]-[address] [place] [address] [place] [address] XRay Report Signed Patient: JOSEPHINE JANG MR#: [id number] : 1980 Acct:[id number] Age/Sex: 44 / F ADM Date: 12/16/24 Loc: RAD Attending Dr: Tea Avila D.P.M. Ordering Physician: Tea Avila D.P.M. Date of Service: 12/16/24 Procedure(s): XR ankle LT min 3V Accession Number(s): [id number] cc: Tea Avila D.P.M.; Angelica eVronica M.D. [place] [address] Patient Name: JOSEPHINE JANG MRN: [id number] date: 1980 Sex: F Assigned Patient Location: RAD Current Patient Location: RAD Accession/Order Number: [id number] Exam Date: 12/17/2024 22:29 Report Date: 12/17/2024 22:30 At the request of: TEA AVILA DPM Procedure: XR ankle LT min 3V XR [...] Donato Rockwell M.D.12/17/2024 10:30 PM Dictation Location: [place] [address] Electronically authenticated by: [id number] Y Date: 12/17/2024 22:30 Dictated By: Donato Rockwell M.D. Signed By: 12/17/242232 DD/ 29 TD/TT: Power Bender Operator: US extremity nonvascular LT Reviewed date:12/03/2024 04:51:40 PM Interpretation: Performing Lab: Notes/Report: Source Facility: [place] [address] Ultrasound Report Signed Patient: JOSEPHINE JANG MR#: [id number] : 1980 Acct:[id number] Age/Sex: 44 / F ADM Date: 12/03/24 Loc: US Attending Dr: Jodi Yo M.D. Ordering Physician: Jodi Yo M.D. Date of Service: 12/03/24 Procedure(s): US extremity nonvascular LT Accession Number(s): [id number] cc: Angelica Veronica M.D.; Jodi Yo M.D. [place] [address] Patient Name: JOSEPHINE JANG MRN: [facility]:[id number] date: 1980 Sex: F Assigned Patient Location: US Current Patient Location: US Accession/Order Number: [id number] Exam Date: 12/03/2024 14:00 Report Date: 12/03/2024 [...] By: Bryant Garay M.D. Signed By: 12/03/24 143 DD/ 34 TD/TT: Power Bender Operator: US pelvis w/ transvaginal Reviewed date:07/27/2025 01:52:29 PM Interpretation: Performing Lab: Notes/Report: Source Facility: [place] [address] Ultrasound Report Signed Patient: JOSEPHINE JANG MR#: [id number] : 1980 Acct:[id number] Age/Sex: 45 / F ADM Date: 07/27/25 Loc: US Attending Dr: Angelica Veronica M.D. Ordering Physician: Angelica Veronica M.D. Date of Service: 07/27/25 Procedure(s): US pelvis w/ transvaginal Accession Number(s): [id number] cc: Angelica Veronica M.D. [place] [address] Patient Name: JOSEPHINE JANG MRN: [id number] date: 1980 Sex: F Assigned Patient Location: US Current Patient Location: US Accession/Order Number: [id number] Exam Date: 07/27/2025 12:36 Report Date: 07/27/2025 13:34 At the request of: ANGELICA VERONICA MD Procedure: US pelvis w/ transvaginal Pelvic ultrasound. Reason for exam: Right lower quadrant pain for 3 days Comparison: none Technique: Transabdominal imaging of the uterus and ovaries was performed. Additional spectral Doppler analysis of the ovaries was also obtained. Findings: Uterus has been removed. Right ovary measures 3.0 x 1.4 x 1.7 cm. Left ovary measures 2.4 x 1.0 x 1.0 cm. Normal arterial and venous Doppler waveforms. No adnexal mass. No free fluid. US/US pelvis w/ transvaginal Impression: Unremarkable pelvic ultrasound. Impression dictated by: Ferdinand Peralta Jr., D.O. 07/27/2025 1:34 PM Dictation Location: [place] [address] Electronically authenticated by: [id number] Y Date: 07/27/2025 13:34 Dictated By: Ferdinand Peralta M.D. Signed By: 07/27/25 1336 DD/ 1334 TD/TT: Power Bender Operator: Erythrocyte Sedimentation Ra te Reviewed date:07/27/2025 01:52:29 PM Interpretation: Performing Lab: Notes/Report: [facility] , Erythrocyte Sedimentation Rate 18 <=20 mm/hr Performing Lab: see note ML - [facility] LB Reason For Referral No Information Medications Medication SIG (Take, Route, Frequency, Duration) Notes Start Date End Date Status metroNIDAZOLE 500 MG 1 tablet Orally Thr ee times a day; Duration: 10 days 07/27/2025 Active Pantoprazole Sodium 40 MG TAKE 1 TABLET BY MOUTH EVERY DAY; Duration: 90 Active Cipro 500 MG 1 tablet Orally BID; Duration: 10 days 07/27/2025 Active QUEtiapine Fumarate 100 MG TAKE 1 TABLET BY MOUTH EVERY DAY AT BEDTIME FOR 30 DAYS; Duration: 30 Active Diflucan 100 MG 1 tablet Orally chris y; Duration: 10 days 07/27/2025 Active Synthroid 75 MCG 1 tablet in [...] needed Orally Twice a day 05/20/2025 Active Cytomel 5 MCG 1 tablet on an empty stomach Orally Once a day; Duration: 30 days 07/27/2025 Active Social History Tobacco Use: Social History [...] W/U Status Risk Notes Problem Ankle ulcer (639210054) 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) Active confirmed Problem Fatigue (47865704) Fatigue (R53.83) Active conf irmed Problem Hyperlipidemia (93471291) Hyperlipidemia (E78.5) Active confirmed Problem Hypertension (69762543) Hypertension (I10) Active confirmed Problem Hypothyroidism (76405703) Hypothyroidism (E03.9) Active confirmed Problem Anxiety (15202386) Anxiety (F41.9) Active confi rmed Problem Degenerative arthritis (482303033) Degenerative arthritis (M19.90) Active confirmed Problem Elevated liver enzymes level (066963909) Elevated liver enzymes (R74.8) Active confirmed Problem Migraine (43196601) Migraine (G43.909) Active confirmed Problem Well adult (721103753) Well adult (Z00.00) Active confirmed Problem Right lower quadrant pain (652982008) Right lower quadrant abdominal pain (R10.31) Active confirmed Problem Acquired hypothyroidism (486635698) Acquired hypothyroidism (E03.9) Active confirmed Problem Abnormal glucose level (481459413) Abnormal glucose (R73.09) Active confirmed Problem Multiple nodules of lung (621964117) Lung nodules (R91.8) Active confirmed Problem Arthralgia of the ankle and/or foot (338119664) Left ankle pain (M25.572) Active confirmed Problem Gastroenteritis (21652631) Gastroenteritis (K52.9) Active confirmed Problem Right lower lobe pneumonia (490278828) Right lower lobe pneumonia (J18.9) Active confirmed Problem Internal derangement of knee (21384639) Internal derangement of knee (M23.90) Active confirmed Problem Edema (751308982) Arm edema (R60.0) Active conf irmed Problem Impingement syndrome of shoulder region (215738024) Shoulder impingement syndrome, right (M75.41) Active confirmed Vital Signs Heart Rate 86 /min 12/16/2024 Temperature 98.7 degrees Fahrenheit 07/27/2025 Blood pressure diastolic 68 mm Hg 07/27/2025 Oximetry 97 % 12/16/2024 Height 64 in 07/27/2025 Blood pressure systolic 128 mm Hg 07/27/2025 Weight 159.2 lbs 07/27/2025 BMI 27.32 kg/m2 07/27/2025 Encounters Encounter Location Date Provider Diagnosis [facility] [address] [place] [address] 02/09/2025 Mehul Veronica [facility] [address] [place] [address] 06/01/2025 Mehul Veronica [facility] [address] [place] [address] 07/27/2025 Mehul Hoy Right lower quadrant abdominal pain R10.31 ; Gastroenteritis K52.9 and Hypothyroidism E03.9 [facility] [address] [place] [address] 07/27/2025 Mehul Hoy [facility] [address] [place] [address] 10/30/[address] [facility] [address] [place] [address] 10/30/2024 Mehul Hoy [facility] [address] [place] [address] 11/24/2024 Mehul Hoy [facility] [address] [place] [address] 12/28/2024 Mehul Hoy [facility] [address] [place] [address] 01/19/2025 Mehul Hoy Hypothyroidism E03.9 and Weight gain R63.5 [facility] [address] [place] [address] 01/25/2025 Mehul Hoy [facility] [address] [place] [address] 09/29/2024 Mehul Hoy Well adult Z00.00 [facility] [address] [place] [address] 01/01/2025 Mehul Hoy Cellulitis L03.90 [facility] [address] [place] [address] 03/13/2025 Mehul Hoy UTI (urinary tract infection), uncomplicated N39.0 and Dysuria R30.0 [facility] [address] [place] [address] 05/20/2025 Mehul Hoy Migraine G43.909 [facility] [address] [place] [address] 07/27/2025 Mehul Hoy Gastroenteritis K52. 9 and Right lower quadrant abdominal pain R10.31 [facility] [address] [place] [address] 05/21/2025 Mehul Hoy Migraine G43.909 [facility] ([facility]) [address] [place] [address] [place] [address] 12/16/2024 Tea Avila Left ankle pain M25.572 ; Neoplasm of unspecified behavior of bone, soft tissue, and skin D49.2 and Other benign neoplasm of skin, unspecified D23.9 Assessments Encounter Date Diagnosis (ICD Code) Assessment [...] the patient that my employment with the [facility] is over on December 31. If she [...] East back into eating by eating bland, ghjb-as-tuwdke foods like crackers, toast, gelatin, bananas, rice and chicken. Try to avoid foods/substances including dairy products, caffeine, alcohol, nicotine and fatty or highly seasoned foods. Medications such as ibuprofen or tylenol can make your stomach more upset, so use sparingly if at all. Also avoid epvl-zlo-jslwxeh anti-diarrheal medications because it can make it harder for your body to eliminate the virus. 07/27/2025 Right lower quadrant abdominal pain (ICD-10 - R10.31) 09/29/2024 Well adult (ICD-10 - Z00.00) 01/19/2025 Hypothyroidism (ICD-10 - E03.9) 01/19/2025 Weight gain (ICD-10 - R63.5) 07/27/2025 Right lower quadrant abdominal pain (ICD-10 - R10.31) 07/27/2025 Gastroenteritis (ICD-10 - K52.9) 01/01/2025 Cellulitis (ICD-10 - L03.90) 03/13/2025 UTI [...] until they are finished. You can use uceh-oqp-jthsuuy acetaminophen or ibuprofen if needed for pain. You should follow up with your Primary Care Physician or return to clinic if not improving in the next 3-5 days. 03/13/2025 Dysuria (ICD-10 - R30.0) 12/16/2024 Other benign neoplasm of skin, unspecified (ICD-10 - D23.9) 07/27/2025 Hypothyroidism (ICD-10 - E03.9) 05/20/2025 Other Take NSAIDs as needed for pain. Discussed avoiding headache triggers and improiving diet and sleep habits to prevent headaches. Plan Of Treatment Pending Test Test Name Order Date CMP (COMPLETE METABOLIC PANEL) 10/27/202 3 HEMOGLOBIN A1C (GLYCO) 08/24/2023 LIPID PANEL (CHOL/TRIG/HDL/LDL) 08/24/20 CBC WITH DIFF 08/24/2023 XR Ankle LT (3 views) * (164) 12/16/2024 MAMM Mammograms CAD 08/24/2023 MRI Ankle LT w/o contrast ([place] Foot) US Upper Extremity LT 03/14/2024 T3 FREE, T4 FREE and TSH 03/12/2024 CMP - Comprehensive Metabolic Panel 12/28 CBC AUTO DIFF 12/13/2023 HEPATITIS PANEL, ACUTE 07/15/2024 SED RATE WESTERGREN 07/27/2025 THYROID PROFILE WITH TSH 12/13/2023 THYROID PROFILE WITH TSH 12/13/2023 CT ABD and PELV W CON 07/27/2025 CT CHEST WO CON 08/24/2023 MRI BRAIN WO CON 05/20/2025 MRI KNEE RT WO CON 07/15/2024 MRI KNEE RT WO CON 07/16/2024 US PELVIS 07/27/2025 THYROID PANEL (T4/TSH/FREE T3) 4 THYROID PANEL (T4/TSH/FREE T3) 5 THYROID PANEL (T4/TSH/FREE T3) 3 THYROID PANEL (T4/TSH/FREE T3) 5 THYROID PANEL (T4/TSH/FREE T3) 5 Insurance Providers Payer Name Payer Address Payer Phone Subscriber Number Group Number Insured Name Patient Relationship to Insured Coverage Start Date Coverage End Date [employer] PPO PLUS LOCAL PLAN [address] [place] [phone] [id number] Josephine Jang Self - patient is [...] of dermatofibroma with Dr. Yo left ankle 7. Exploratory Laproscopy Leap Procedure Gall bladder Removal Hysterectomy- Partial
--- OUTSIDE RECORDS SUMMARY | 2025-08-10 07:43 | XMS_ITS | CCD ---
Author Organization [facility] CliniSyct Care Team Providers Care Application Development Intern Name Role Phone Angelica De Primary Care [...] allergy 3 Eruption of skin (disorder), rash [facility] (6 sources) Sulfamethoxazole / Trimethoprim; Translations: [sulfamethoxazole-tr imethoprim] Drug Allergy Weal (disorder), hives [facility] (2 sources) natural latex rubber Drug allergy (disorder) [facility] Rep[facility] (2 sources) Sulfamethoxazole / Trimethoprim Drug Allergy [facility] Rep[facility] (1 source) Sulfamethoxazole Drug Allergy 3 [facility] Repository (1 source) Trimethoprim Drug Allergy 3 [facility] Repository Medications Current Medications Medication Drug [...] Drug Class(es) Dates Sig (Normalized) Sig (Original) [place] (1 source) [place] Not- Taking Problems Active Problems Problem Classification [...] No anaerobic growth after 72 hrs. Normal [facility] Comment on above: Performed By: #### A NAC #### [address] [address] [place] 01-14-2025 C Wound ------- Final No growth at 48 hours. Normal [facility] Comment on above: Performed By: #### W DC #### [address] [address] [place] 01-12-2025 Specimens Received From [facility] Comment on above: Performed By: #### O [facility] Tracking Order #### [facility] [address] [facility] [place] [address] Ambulatory Visit Summaryon 0 12-02-2024 Ambulatory Visit [...] for choosing us for your care. Normal [facility] Drugs of Abuse, S/Jm 2023 Amphetamines, S/P Negative Normal Cutoff 20 [facility] Comment on above: Performed By: #### A DAU9S #### [facility] [address] [place] [address] Fund Director: Trey Carroll MD #### HEATHER CDP, MG #### [facility] [address] [place] [address] Fund Director: Belia Manjarrez MD Barbiturates, S/P Negative Normal Cutoff 50 [facility] Comment on above: Performed By: #### A DAU9S #### [facility] [address] [place] [address] Fund Director: Trey Carroll MD #### CP CDP, MG #### [facility] [address] [place] [address] Fund Director: Belia Manjarrez MD Benzodiazepines, S/P Negative Normal Cutoff 50 [facility] Comment on above: Performed By: #### A DAU9S #### [facility] [address] [place] [address] Fund Director: Trey Carroll MD #### CP, CDP, MG #### [facility] [address] [place] [address] Fund Director: Belia Manjarrez MD Buprenorphine, S/P Negative Normal Cutoff 1 [facility] Comment on above: Performed By: #### A DAU9S #### [facility] [address] [place] [address] Fund Director: Trey Carroll MD #### CP, CDP, MG #### [facility] [address] [place] [address] Fund Director: Belia Manjarrez MD Cocaine, Serum/Plas Negative Normal Cutoff 20 [facility] Comment on above: Performed By: #### A DAU9S #### [facility] [address] [place] [address] Fund Director: Trey Carroll MD #### CP, CDP, MG #### [facility] [address] [place] [address] Fund Director: Belia Manjarrez MD Comment See Note Normal [facility] Comment on above: Result Comment: (NOT [...] developed and its performance characteristics determined by [facility]. It has not been cleared or approved by the [place] Food and Drug Administration. This test was performed in a CLIA certified laboratory and is intended for clinical purposes. Performed By: [facility] [address] [place] [id number] Machine Assistant: Trace Vazquez MD, PhD CLIA Number: [id number] Performed By: #### A DAU9S #### [address] [address] Fund Director: Trey Carroll MD #### CP, CDP, MG #### [address] [place] [address] Fund Director: Belia Manjarrez MD Methadone, S/P Negative Normal Cutoff 25 [facility] Comment on above: Performed By: #### A DAU9S #### [address] [address] Fund Director: Trey Carroll MD #### CP, CDP, MG #### [address] [place] [address] Fund Director: Belia Manjarrez MD Methamphetamine,S/P Negative Normal Cutoff 20 [facility] Comment on above: Performed By: #### A DAU9S #### [address] [address] Fund Director: Trey Carroll MD #### CP, CDP, MG #### [facility] [address] [place] [address] Fund Director: Belia Manjarrez MD Opiates, Serum/Plas Negative Normal Cutoff 20 [facility] Comment on above: Performed By: #### A DAU9S #### [address] [address] Fund Director: Trey Carroll MD #### CP, CDP, MG #### [facility] [address] [place] [address] Fund Director: Belia Manjarrez MD Oxycodone, S/P Negative Normal Cutoff 20 [facility] Comment on above: Performed By: #### A DAU9S #### [facility] [address] [place] [address] Fund Director: Trey Carroll MD #### CP, CDP, MG #### [facility] [address] [place] [address] Fund Director: Belia Manjarrez MD Phencyclidine, S/P Negative Normal Cutoff 10 [facility] Comment on above: Performed By: #### A DAU9S #### [facility] [address] [place] [address] Fund Director: Trey Carroll MD #### CP, CDP, MG #### [facility] [address] [place] [address] Fund Director: Belia Manjarrez MD THC, Serum/Plasma Negative Normal Cutoff 20 [facility] Comment on above: Performed By: #### A DAU9S #### [facility] [address] [place] [address] Fund Director: Trey Carroll MD #### CP, CDP, MG #### [facility] [address] [place] [address] Fund Director: Belia Manjarrez MD CBC with Diffon 06-12-2024 Abs. Basophil 0.04 k/uL Normal 0.00-0.20 [facility] Comment on above: Performed By: #### A DAU9S #### [facility] [address] [place] [address] Fund Director: Trey Carroll MD #### CP, CDP, MG #### [facility] [address] [place] [address] Fund Director: Belia Manjarrez MD Abs.Imm.Granulocyte 0.06 k/uL Normal 0.00-0.30 [facility] Comment on above: Performed By: #### A DAU9S #### [facility] [address] [place] [address] Fund Director: Trey Carroll MD #### CP, CDP, MG #### [facility] [address] [place] [address] Fund Director: Belia Manjarrez MD Abs.Neutrophil (Seg) 6.02 k/uL Normal 1.50-8.10 [facility] Comment on above: Performed By: #### A DAU9S #### [facility] [address] [place], [place] [id number] Fund Director: Trey Carroll MD #### CP, CDP, MG #### [facility] [address] [place] [address] [place] [address] Fund Director: Belia Manjarrez MD Basophils/100 WBC (Bld) 0 % Normal 0-2 [facility] Comment on above: Performed By: #### A DAU9S #### [facility] [address] [place], [place] [id number] Fund Director: Trey Carroll MD #### CP, CDP, MG #### [facility] [address] [place] [address] Fund Director: Belia Manjarrez MD Eosinophils (Bld) [#/Vol] 0.16 10*3/uL Normal 0.00-0.44 [facility] Comment on above: Performed By: #### A DAU9S #### [facility] [address] [place] [address] Fund Director: Trey Carroll MD #### CP, CDP, MG #### [facility] [address] [place] [address] [place] [address] Fund Director: Belia Manjarrez MD Eosinophils/100 WBC (Bld) 2 % Normal 1-4 [facility] Comment on above: Performed By: #### A DAU9S #### [facility] [address] [place] [address] Fund Director: Trey Carroll MD #### CP, CDP, MG #### [facility] [address] [place] [address] [place] [address] Fund Director: Belia Manjarrez MD Erythrocyte distribution width (RBC) [Ratio] 13.3 % Normal 11.8-14.4 [facility] Comment on above: Performed By: #### A DAU9S #### [address] [id number] Fund Director: Trey Carroll MD #### HEATHER, CDP, MG #### [address] [place] [address] Fund Director: Belia Manjarrez MD Hematocrit (Bld) [Volume fraction] 41.0 % Normal 36.3-47.1 [facility] Comment on above: Performed By: #### A DAU9S #### [facility] [address] [place], [place] [id number] Fund Director: Trey Carroll MD #### HEATHER, CDP, MG #### [facility] [address] [place] [address] [place] [address] Fund Director: Belia Manjarrez MD Hemoglobin (Bld) [Mass/Vol] 14.1 g/dL Normal 11.9-15.1 [facility] Comment on above: Performed By: #### A DAU9S #### [facility] [address] [place], [place] [id number] Fund Director: Trey Carroll MD #### CP, CDP, MG #### [facility] [address] [place] [address] Fund Director: Belia Manjarrez MD Immature granulocytes/100 WBC (Bld) 1 % High 0 [facility] Comment on above: Performed By: #### A DAU9S #### [facility] [address] [place] [address] Fund Director: Trey Carroll MD #### CP, CDP, MG #### [facility] [address] [place] [address] Fund Director: Belia Manjarrez MD Lymphocytes (Bld) [#/Vol] 3.39 10*3/uL Normal 1.10-3.70 [facility] Comment on above: Performed By: #### A DAU9S #### [address] [id number] Fund Director: Trey Carroll MD #### CP, CDP, MG #### [facility] [address] [place] [address] Fund Director: Belia Manjarrez MD Lymphocytes/100 WBC (Bld) 33 % Normal 24-43 [facility] Comment on above: Performed By: #### A DAU9S #### [facility] [address] [place] [address] Fund Director: Trey Carroll MD #### CP, CDP, MG #### [facility] [address] [place], [place] [id number] Fund Director: Belia Manjarrez MD MCH (RBC) [Entitic mass] 30.9 pg Normal 25.2-33.5 [facility] Comment on above: Performed By: #### A DAU9S #### [facility] [address] [place] [address] Fund Director: Trey Carroll MD #### CP, CDP, MG #### [facility] [address] [place] [address] Fund Director: Belia Manjarrez MD MCHC (RBC) [Mass/Vol] 34.4 g/dL Normal 28.4-34.8 [facility] Comment on above: Performed By: #### A DAU9S #### [facility] [address] [place] [address] Fund Director: Trey Carroll MD #### CP, CDP, MG #### [facility] [address] [place] [address] [place] [address] Fund Director: Belia Manjarrez MD MCV (RBC) [Entitic vol] 89.9 fL Normal 82.6-102.9 [facility] Comment on above: Performed By: #### A DAU9S #### [facility] [address] [place], [place] [id number] Fund Director: Trey Carroll MD #### HEATHER, CDP, MG #### [address] [place] [address] Fund Director: Belia Manjarrez MD Monocytes (Bld) [#/Vol] 0.67 10*3/uL Normal 0.10-1.20 [facility] Comment on above: Performed By: #### A DAU9S #### [facility] [address] [place] [address] Fund Director: Trey Carroll MD #### CP, CDP, MG #### [facility] [address] [place] [address] [place] [address] Fund Director: Belia Manjarrez MD Monocytes/100 WBC (Bld) 7 % Normal 3-12 [facility] Comment on above: Performed By: #### A DAU9S #### [facility] [address] [place] [address] Fund Director: Trey Carroll MD #### CP, CDP, MG #### [facility] [address] [place] [address] [place] [address] Fund Director: Belia Manjarrez MD Neutrophil (Seg) 57 % Normal 36-65 [facility] Comment on above: Performed By: #### A DAU9S #### [facility] [address] [place], [place] [id number] Fund Director: Trey Carroll MD #### CP, CDP, MG #### [facility] [address] [place] [address] Fund Director: Belia Manjarrez MD NRBC Automated 0.0 per 100 WBC Normal 0.0 [facility] Comment on above: Performed By: #### A DAU9S #### [facility] [address] [place], [place] [id number] Fund Director: Trey Carroll MD #### HEATHER CDP, MG #### [facility] [address] [place] [address] Fund Director: Belia Manjarrez MD Platelet mean volume (Bld) [Entitic vol] 9.6 fL Normal 8.1-13.5 [facility] Comment on above: Performed By: #### A DAU9S #### [facility] [address] [place], [place] [id number] Fund Director: Trey Carroll MD #### HEATHER, CDP, MG #### [facility] [address] [place] [address] Fund Director: Belia Manjarrez MD Platelets (Bld) [#/Vol] 314 10*3/uL Normal 138-453 [facility] Comment on above: Performed By: #### A DAU9S #### [facility] [address] [place] [address] Fund Director: Trey Carroll MD #### CP, CDP, MG #### [facility] [address] [place] [address] Fund Director: Belia Manjarrez MD RBC (Bld) [#/Vol] 4.56 10*6/uL Normal 3.95-5.11 [facility] Comment on above: Performed By: #### A DAU9S #### [facility] [address] [place] [address] Fund Director: Trey Carroll MD #### CP, CDP, MG #### [facility] [address] [place] [address] Fund Director: Belia Manjarrez MD WBC (Bld) [#/Vol] 10.3 10*3/uL Normal 3.5-11.3 [facility] Comment on above: Performed By: #### A DAU9S #### [facility] [address] [place] [address] Fund Director: Trey Carroll MD #### CP, CDP, MG #### [facility] [address] [place] [address] Fund Director: Belia Manjarrez MD Comp Metabolic Profon 2023 Albumin [Mass/Vol] 4.4 g/dL Normal 3.5-5.2 [facility] Comment on above: Performed By: #### A DAU9S #### [facility] [address] [place] [address] Fund Director: Trey Carroll MD #### CP, CDP, MG #### [facility] [address] [place] [address] Fund Director: Belia Manjarrez MD Albumin/Glob Ratio 1.5 Normal 1.0-2.5 [facility] Comment on above: Performed By: #### A DAU9S #### [facility] [address] [place] [address] Fund Director: Trey Carroll MD #### CP, CDP, MG #### [facility] [address] [place] [address] Fund Director: Belia Manjarrez MD Alkaline Phos 108 U/L High 35-104 [facility] Comment on above: Performed By: #### A DAU9S #### [facility] [address] [place] [address] Fund Director: Trey Carroll MD #### CP, CDP, MG #### [facility] [address] [place] [address] Fund Director: Belia Manjarrez MD ALT [Catalytic activity/Vol] 46 U/L High 5-33 [facility] Comment on above: Performed By: #### A DAU9S #### [facility] [address] [place], [place] [id number] Fund Director: Trey Carroll MD #### CP, CDP, MG #### [facility] [address] [place] [address] Fund Director: Belia Manjarrez MD Anion gap [Moles/Vol] 10 mmol/L Normal 9-17 [facility] Comment on above: Performed By: #### A DAU9S #### [facility] [address] [place] [address] Fund Director: Trey Carroll MD #### CP, CDP, MG #### [facility] [address] [place] [address] Fund Director: Belia Manjarrez MD AST [Catalytic activity/Vol] 32 U/L High <32 [facility] Comment on above: Performed By: #### A DAU9S #### [facility] [address] [place] [address] Fund Director: Trey Carroll MD #### CP, CDP, MG #### [facility] [address] [place] [address] Fund Director: Belia Manjarrez MD Bilirubin [Mass/Vol] 0.4 mg/dL Normal 0.3-1.2 [facility] Comment on above: Performed By: #### A DAU9S #### [facility] [address] [place], [place] [id number] Fund Director: Trey Carroll MD #### CP, CDP, MG #### [facility] [address] [place] [address] Fund Director: Belia Manjarrez MD BUN/CRE Ratio 12 Normal 9-20 [facility] Comment on above: Performed By: #### A DAU9S #### [facility] [address], [place] [id number] Fund Director: Trey Carroll MD #### CP, CDP, MG #### [facility] [address] [place] [address] Fund Director: Belia Manjarrez MD Calcium [Mass/Vol] 9.1 mg/dL Normal 8.6-10.4 [facility] Comment on above: Performed By: #### A DAU9S #### [facility] [address] [place], [place] [id number] Fund Director: Trey Carroll MD #### CP, CDP, MG #### [facility] [address] [place] [address] Fund Director: Belia Manjarrez MD Chloride [Moles/Vol] 106 mmol/L Normal 98-107 [facility] Comment on above: Performed By: #### A DAU9S #### [facility] [address] [place] [address] Fund Director: Trey Carroll MD #### CP, CDP, MG #### [facility] [address] [place] [address] Fund Director: Belia Manjarrez MD CO2 [Moles/Vol] 26 mmol/L Normal 20-31 [facility] Comment on above: Performed By: #### A DAU9S #### [facility] [address] [place], [place] [id number] Fund Director: Trey Carroll MD #### CP, CDP, MG #### [facility] [address] [place] [address] Fund Director: Belia Manjarrez MD Creatinine [Mass/Vol] 0.5 mg/dL Normal 0.5-0.9 [facility] Comment on above: Performed By: #### A DAU9S #### [facility] [address] [place] [address] Fund Director: Trey Carroll MD #### CP, CDP, MG #### [facility] [address] [place] [address] Fund Director: Belia Manjarrez MD GFR/1.73 sq M.predicted among non-blacks MDRD (S/P/Bld) [Vol rate/Area] mL/min/{1.73_m2} Normal >60 [facility] Comment on above: Result Comment: These [...] #### A DAU9S #### [facility] [address] [place] [address] Fund Director: Trey Carroll MD #### CP, CDP, MG #### [facility] [address] [place] [address] Fund Director: Belia Manjarrez MD Glucose [Mass/Vol] 90 mg/dL Normal 70-99 [facility] Comment on above: Performed By: #### A DAU9S #### [facility] [address] [place] [address] Fund Director: Trey Carroll MD #### CP, CDP, MG #### [facility] [address] [place] [address] Fund Director: Belia Manjarrez MD Potassium [Moles/Vol] 4.2 mmol/L Normal 3.7-5.3 [facility] Comment on above: Performed By: #### A DAU9S #### [facility] [address] [place] [address] Fund Director: Trey Carroll MD #### HEATHER, CDP, MG #### [facility] [address] [place] [address] Fund Director: Belia Manjarrez MD Protein [Mass/Vol] 7.4 g/dL Normal 6.4-8.3 [facility] Comment on above: Performed By: #### A DAU9S #### [facility] [address] [place] [address] Fund Director: Trey Carroll MD #### CP, CDP, MG #### [facility] [address] [place] [address] Fund Director: Belia Manjarrez MD Sodium [Moles/Vol] 142 mmol/L Normal 135-144 [facility] Comment on above: Performed By: #### A DAU9S #### [facility] [address] [place] [address] Fund Director: Trey Carroll MD #### CP, CDP, MG #### [facility] [address] [place] [address] Fund Director: Belia Manjarrez MD Urea nitrogen [Mass/Vol] 6 mg/dL Normal 6-20 [facility] Comment on above: Performed By: #### A DAU9S #### [facility] [address] [place] [address] Fund Director: Trey Carroll MD #### CP, CDP, MG #### [address] [place] [address] Fund Director: Belia Manjarrez MD Drug Scr, Abuse, Uron 2023 Amphetamine(s),Ur Negative Normal NEG [facility] Comment on above: Result Comment: (Positive cutoff 1000 ng/mL) Performed By: #### D AU #### [address] [place], [place] [id number] Fund Director: Belia Manjarrez MD Barbiturate(s),Ur Negative Normal NEG [facility] Comment on above: Result Comment: (Positive cutoff 200 ng/mL) Performed By: #### D AU #### [address] [place] [address] Fund Director: Belia Manjarrez MD Benzodiazepine(s) Negative Normal NEG [facility] Comment on above: Result Comment: (Positive cutoff 200 ng/mL) Performed By: #### D AU #### [address] [place], [place] [id number] Fund Director: Belia Manjarrez MD Buprenorphrine, Ur Negative Normal NEG [facility] Comment on above: Result Comment: (Positive cutoff 5 ng/ml) Performed By: #### D AU #### [address] [place] [address] Fund Director: Belia Manjarrez MD Cannabinoid(s),Ur Negative Normal NEG [facility] Comment on above: Result Comment: (Positive cutoff 50 ng/mL) Performed By: #### D AU #### [address] [place], [place] [address] Fund Director: Belia Manjarrez MD Cocaine Metabolite Negative Normal NEG [facility] Comment on above: Result Comment: (Positive cutoff 300 ng/mL) Performed By: #### D AU #### [facility] [address] [place] [address] [place], [place] [id number] Fund Director: Belia Manjarrez MD Fentanyl, Urine Negative Normal NEG [facility] Comment on above: Result Comment: (Positive cutoff 5 ng/ml) Performed By: #### D AU #### [address] [place], [place] [id number] Fund Director: Belia Manjarrez MD Interpretive Info Assay provides medical screening only. The absence of expected drug(s) and/or Normal [facility] Comment on above: Result Comment: meta bolite(s) may indicate diluted or adulterated urine, limitations of testing or timing of collection. Testing for legal purposes should be confirmed by another method. To request confirmation of test result, please call the lab within 7 days of sample submission. Performed By: #### D AU #### [address] [place] [address] Fund Director: Belia Manjarrez MD Methadone Ql (U) Negative Normal NEG [facility] Comment on above: Result Comment: (Positive cutoff 300 ng/mL) Performed By: #### D AU #### [address] [place], [place] [id number] Fund Director: Belia Manjarrez MD Opiate(s), Ur Negative Normal NEG [facility] Comment on above: Result Comment: (Positive cutoff 300 ng/mL) Performed By: #### D AU #### [address] [place], [place] [id number] Fund Director: Belia Manjarrez MD Oxycodone, Urine Negative Normal NEG [facility] Comment on above: Result Comment: (Positive cutoff 100 ng/mL) Performed By: #### D AU #### [address] [place], [place] [id number] Fund Director: Belia Manjarrez MD Phencyclidine, Ur Negative Normal NEG [facility] Comment on above: Result Comment: (Positive cutoff 25 ng/mL) Performed By: #### D AU #### [facility] [address] [place] [address] Fund Director: Belia Manjarrez MD Magnesiumon 06-12-2024 Magnesium [Mass/Vol] 2.2 mg/dL Normal 1.6-2.6 [facility] Comment on above: Performed By: #### A DAU9S #### [facility] [address] [place] [address] Fund Director: Trey Carroll MD #### CP, CDP, MG #### [facility] [address] [place] [address] Fund Director: Belia Manjarrez MD XR knee LT 4V*on 09-13-2023 XR knee LT 4V* [facility] [employer] Other XR knee LT 4V* [facility] [employer] Other XR knee LT 4V* [address] [place] [address] [employer] Other XR knee LT 4V* [place] [address] No rt [employer] Other XR knee LT 4V* XRay Report [employer] Other XR knee LT 4V* Signed [employer] Other XR knee LT 4V* Patient: Josephine Herndon MR#: [id number] Kyburz [employer] Other XR knee LT 4V* 8 [employer] Other XR knee LT 4V* : 1980 Acct:[id number] [employer] Other XR knee LT 4V* Age/Sex: 43 / F ADM Date: 09/13/23 [employer] Other XR knee LT 4V* Loc: XDUCLY Room: Type: REG CLI [employer] Other XR knee LT 4V* Attending Dr: Shae Love APRN [employer] Other XR knee LT 4V* Copies to: Shae Love APRN [employer] Other XR knee LT 4V* Ordering Provider: Shae Love APRN [employer] Other XR knee LT 4V* Date of Service: 09/13/23 [employer] Other XR knee LT 4V* XR/XR knee LT 4V*: Injury [employer] Other XR knee LT 4V* XR knee LT 4V* 09/13/2023 10:51 AM [employer] Other XR knee LT 4V* SIGNS AND SYMPTOMS: Twisting injury to left knee with pain and swelling medially [employer] Other XR knee LT 4V* PROTOCOL: Frontal, lateral, and oblique radiographs of the left knee [employer] Other XR knee LT 4V* COMPARISON: None Nort [employer] Other XR knee LT 4V* FINDINGS: [employer] Other XR knee LT 4V* The joint spaces are preserved. There is a moderate joint effusion. There is no evidence of fracture [employer] Other XR knee LT 4V* or dislocation. No significant soft tissue swelling. [employer] Other XR knee LT 4V* XR/XR knee LT 4V* [employer] Other XR knee LT 4V* IMPRESSION: [employer] Other XR knee LT 4V* No fracture. [employer] Other XR knee LT 4V* There is a moderate joint effusion. [employer] Other XR knee LT 4V* Impression dictated by: Donato Rockwell M.D.09/13/2023 11:19 AM [employer] Other XR knee LT 4V* Dictation Location: [place] [address] [employer] Other XR knee LT 4V* Transcribed By: PWS 09/13/23 1119 [employer] Other XR knee LT 4V* Dictated By: Donato Rockwell II, MD 09/13/23 1114 [employer] Other XR knee LT 4V* Signed By: [employer] Other XR knee LT 4V* 09/13/23 1114 [employer] app Other XR knee LT 4V* [facility] Main [employer] [address] [place] [address] XRay Report Signed Patient: Josephine Herndon MR#: [id number] 8 : 1980 Acct:[id number] Age/Sex: 43 / F ADM Date: 09/13/23 Loc: XDUCLY Room: Type: [facility] Attending Dr: Shae Love APRN Copies to: [...] Donato Rockwell M.D.09/13/2023 11:19 AM Dictation Location: [place] [address] Transcribed By: [facility] 09/13/23 111 Dictated By: Donato Rockwell II, MD 09/13/23 1118 Signed By: 09/13/[address] [facility] [address] CHEST WO CONon 10-10-2022 CT [...] 2022-10-10 10:35 Normal [facility] Covid-19 PCR (CVDTB)on SARS-CoV-2 (COVID-19) RNA RAYMOND+probe Ql (Unsp spec) Not detected Normal NOT DETECTED [facility] Comment on above: Result Comment: When diagnostic [...] for this test is supported by the [place] of Health and Human Service's declaration that [...] longer be used). Performed By: #### C [facility] #### [facility] [address] [address] [address] CHEST WO CONon [...] BELIA HENDRICKS Date: 2022-09-01 09:55 Normal [facility] MG MAMM SCREEN 3D GUSTAVO CADon 09-01-2022 MG MAMM SCREEN 3D GUSTAVO CAD Patient: JOSEPHINE HERNDONJosé Exam Date: 09/01/2022 : 1980 Gender:F Ordering : DR ANGELICA DE . Admission #: [id number] Family : Order #: [id number] CLICK HERE TO VIEW EXAM RADIOLOGY REPORT [...] age 59. LOCATION: [facility] BREAST COMPOSITION: Scattered areas fibroglandular density. FINDINGS: [...] on 09/01/2022 at 09:32 Normal [facility] PAP ACOG PANEL 2: 21 to 29on 06-02-2022 . . Normal [facility] Comment on above: Result Comment: Perf ormed at: WB Performed By: #### [id number] #### [facility] [address] [address] [address] Les Bryan Age Gdln ACOG Testing 30-65 Normal [facility] Comment on above: Performed By: #### [id number] #### [facility] [address] [place], [place] [address] Dr. Les Bryan DIAGNOSIS: Comment Normal [facility] Comment on above: Result Comment: NEGA TIVE FOR INTRAEPITHELIAL LESION OR MALIGNANCY. Performed at: WB Performed By: #### [id number] #### [facility] [id number] Les Bryan HPV Aptima Negative Normal Negative [facility] Comment on above: Result Comment: This nucleic acid amplification test detects fourteen high-risk HPV types (16,18,31,33,35,39,45,51,52,56,58,59,66,68) without differentiation. Performed at: =G Performed By: #### [id number] #### [facility] [address] [place] [address] Dr. Les Bryan Methodology: Comment Normal [facility] Comment on above: Result Comment: This liquid based ThinPrep(R) pap test was screened with the use of an image guided system. Performed at: WB Performed By: #### [id number] #### [facility] [address] [place] [address] Dr. Les Bryan Note: Comment Normal [facility] Comment on above: Result Comment: The Pap smear is a screening test designed to aid in the detection of premalignant and malignant conditions of the uterine cervix. It is not a diagnostic procedure and should not be used as the sole means of detecting cervical cancer. Both false-positive and false-negative reports do occur. . Performed at: WB Performed By: #### [id number] #### [facility] [address] [place] [address] Dr. Les Bryan Performed by: Comment Normal [facility] Comment on above: Result Comment: Bella Cuevas, Engineering Intern (ASCP) Performed at: WB Performed By: #### [id number] #### [facility] [address] [place] [address] Dr. Les Bryan Specimen adequacy: Comment Normal [facility] Comment on above: Result Comment: Sati sfactory for evaluation. Endocervical and/or squamous metaplastic cells (endocervical component) are present. Performed at: WB Performed By: #### [id number] #### [facility] [address] [place] [address] Dr. Les Bryan HEPATITIS PANEL, ACUTEon HBsAg Screen Negative Normal Negative [facility] Comment on above: Performed By: #### H EPACUT #### [facility] [address] [place] [address] Dr. Les Bryan HCV AB 0.2 s/co ratio Normal 0.0-0.9 [facility] Comment on above: Performed By: #### H EPACUT #### [facility] [address] [place] [address] Dr. Les Bryan Hep A Ab, IgM Negative Normal Negative [facility] Comment on above: Performed By: #### H EPACUT #### [facility] [address] [place] [address] Dr. Les Bryan Hep B Core Ab, IgM Negative Normal Negative [facility] Comment on above: Performed By: #### H EPACUT #### [facility] [address] [place] [address] Dr. Les Bryan Interpretation: Comment Normal [facility] Comment on above: Result Comment: Nega tive Not infected with HCV, unless recent infection is suspected or other evidence exists to indicate HCV infection. Performed By: #### H EPACUT #### [facility] [address] [place] [address] Dr. Les Bryan INSULINon 04-18-2022 Insulin 18.8 uIU/mL Normal 2.6-24.9 [facility] Comment on above: Performed By: #### I NSULIN #### [facility] [address] [place] [address] Dr. Les Bryan BILIRUBIN CONJUGATED (DIRECT )on 04-17-2022 BILI, CONJUGATED 0.1 mg/dL Normal 0.0-0.2 [facility] Comment on above: Performed By: #### RICARDO STEVENSON #### [facility] [address] [place] [address] Dr. Les Bryan BNPon 04-17-2022 Natriuretic peptide B (Bld) [Mass/Vol] 12.0 pg/mL Normal <=450.0 [facility] Comment on above: Performed By: #### RICARDO STEVENSON #### [facility] [address] [place] [address] Dr. Les Bryan CBC AUTO DIFFon 04-17-2022 BASO # 0.1 103/ul Normal 0.0-0.1 [facility] Comment on above: Performed By: #### C BC #### [facility] [address] [place] [address] [address] Les Bryan Basophils/100 WBC (Bld) 0.6 % Normal 0.2-2.0 [facility] Comment on above: Performed By: #### C BC #### [facility] [address] [place] [address] [address] Les Bryan EO # 0.3 103/ul Normal 0.0-0.7 [facility] Comment on above: Performed By: #### C BC #### [facility] [address] [address] [address] Les Bryan Eosinophils/100 WBC (Bld) 3.0 % Normal 0.9-7.0 [facility] Comment on above: Performed By: #### C BC #### [facility] [address] [place] [address] [address] Les Bryan Erythrocyte distribution width (RBC) [Ratio] 13.2 % Normal 11.0-15.0 [facility] Comment on above: Performed By: #### C BC #### [facility] [address] [place] [address] [address] Les Bryan Hematocrit (Bld) [Volume fraction] 40.8 % Normal 36.0-48.0 [facility] Comment on above: Performed By: #### C BC #### [facility] [address] [address] [address] Les Bryan Hemoglobin (Bld) [Mass/Vol] 13.4 g/dL Normal 12.0-16.0 [facility] Comment on above: Performed By: #### C BC #### [facility] [address] [address] [address] Les Bryan IG # 0.07 10e3/ul Critically high 0.00-0.03 [facility] Comment on above: Performed By: #### C BC #### [facility] [address] [address] [address] Les Bryan IG % 0.8 % Critically high 0.0-0.5 [facility] Comment on above: Performed By: #### C BC #### [facility] [address] [place] [address] Dr. Les Bryan LYMPH # 2.8 103/ul Normal 1.2-3.8 [facility] Comment on above: Performed By: #### C BC #### [facility] [address] [place] [address] Dr. Les Bryan Lymphocytes/100 WBC (Bld) 31.7 % Normal 20.5-60.0 [facility] Comment on above: Performed By: #### C BC #### [facility] [address] [place] [address] Dr. Les Bryan MANUAL DIFF REQ NO Normal [facility] Comment on above: Performed By: #### C BC #### [facility] [address] [place] [address] Dr. Les Bryan MCH (RBC) [Entitic mass] 29.5 pg Normal 26.7-34.0 [facility] Comment on above: Performed By: #### C BC #### [facility] [address] [place] [address] Dr. Les Bryan MCHC (RBC) [Mass/Vol] 32.8 g/dL Normal 29.9-35.2 [facility] Comment on above: Performed By: #### C BC #### [facility] [address] [place] [address] Dr. Les Bryan MCV (RBC) [Entitic vol] 89.9 fL Normal 81.0-99.0 [facility] Comment on above: Performed By: #### C BC #### [facility] [address] [place] [address] Dr. Les Bryan MONO # 0.4 103/ul Normal 0.3-0.8 [facility] Comment on above: Performed By: #### C BC #### [facility] [address] [place] [address] Dr. Les Bryan Monocytes/100 WBC (Bld) 4.7 % Normal 1.7-12.0 [facility] Comment on above: Performed By: #### C BC #### [facility] [address] [place] [address] [address] Les Bryan NEUT # 5.3 103/ul Normal 1.4-6.5 [facility] Comment on above: Performed By: #### C BC #### [facility] [address] [address] [address] Les Bryan Neutrophils/100 WBC (Bld) 59.2 % Normal 43.0-75.0 [facility] Comment on above: Performed By: #### C BC #### [facility] [address] [place] [address] Dr. Les Bryan Platelet mean volume (Bld) [Entitic vol] 9.1 fL Critically low 9.5-13.5 [facility] Comment on above: Performed By: #### C BC #### [facility] [address] [place] [address] Dr. Les Bryan PLT 309 103/ul Normal 150-450 [facility] Comment on above: Performed By: #### C BC #### [facility] [address] [place] [address] Dr. Les Bryan RBC 4.54 106/ul Normal 4.20-5.40 [facility] Comment on above: Performed By: #### C BC #### [facility] [address] [place] [address] Dr. Les Bryan WBC 8.9 103/ul Normal 4.0-11.0 [facility] Comment on above: Performed By: #### C BC #### [facility] [address] [place] [address] Dr. Les Bryan FREE T3on 04-17-2022 FREE T3 2.02 pg/mlL Critically low 2.18-3.98 [facility] Comment on above: Performed By: #### RICARDO STEVENSON #### [facility] [address] [place] [address] Dr. Les Bryan FREE THYROXINE INDEX T7on FTI 2.07 Normal 1.30-4.50 [facility] Comment on above: Performed By: #### RICARDO STEVENSON #### [facility] [address] [place] [address] Dr. Les Bryan T3U 30.0 % Normal 30.0-39.0 [facility] Comment on above: Performed By: #### RICARDO STEVENSON #### [facility] [address] [place] [address] Dr. Les Bryan T4 [Mass/Vol] 6.90 ug/dL Normal 4.80-13.90 [facility] Comment on above: Performed By: #### RICARDO STEVENSON #### [facility] [address] [place] [address] Dr. Les Bryan GLYCOHEMOGLOBIN A1Con 2021 ADA RECOMMENDATION SEE BELOW Normal [facility] Comment on above: Result Comment: ADA RECOMMENDED LIMIT 4.0 - 6.0 ADA THERAPEUTIC TARGET < 7.0 ACTION SUGGESTED > 7.0 Performed By: #### A 1C #### [facility] [address] [place] [address] Dr. Les Bryan Glucose [Mass/Vol] 120 mg/dL Normal [facility] Comment on above: Performed By: #### A 1C #### [facility] [address] [place] [address] Dr. Les Bryan HbA1c (Bld) [Mass fraction] 5.8 % Normal 4.5-6.2 [facility] Comment on above: Performed By: #### A 1C #### [facility] [address] [place] [address] Dr. Les Bryan IRONon 04-17-2022 Iron [Mass/Vol] 66.0 ug/dL Normal 50.0-170.0 [facility] Comment on above: Performed By: #### RICARDO STEVENSON #### [facility] [address] [place] [address] Dr. Les Bryan LIPID PROFILEon 04-17-2022 CHOL-HDL RATIO NORM SEE BELOW Normal [facility] Comment on above: Result Comment: 3.3 - 4.4 LOW RISK 4.4 - 7.1 AVERAGE RISK 7.1 - 11.0 MODERATE RISK >11.0 HIGH RISK Performed By: #### Andi GUY UMICRO #### [facility] [address] [address] [address] Les Bryan Cholesterol [Mass/Vol] 244 mg/dL Critically high <=200 [facility] Comment on above: Performed By: #### Andi GUY UMICRO #### [facility] [address] [address] [address] Les Bryan Cholesterol in HDL [Mass/Vol] 55 mg/dL Normal 40-60 [facility] Comment on above: Performed By: #### Andi GUY UMICRO #### [facility] [address] [place] [address] Dr. Les Bryan Cholesterol in LDL [Mass/Vol] 155.4 mg/dL Normal [facility] Comment on above: Performed By: #### Andi GYU UMICRO #### [facility] [address] [place] [address] Dr. Les Bryan Cholesterol.total/Ch olesterol in HDL [Mass ratio] 4.4 {ratio} Normal [facility] Comment on above: Performed By: #### Andi GUY UMICRO #### [facility] [address] [place] [address] Dr. Les Bryan HDL NORMAL > or = 60 mg/dl - LOW CARDIOVASCULAR RISK <40 mg/dl - HIGH CARDIOVASCULAR RISK Normal [facility] Comment on above: Performed By: #### Andi GUY UMICRO #### [facility] [address] [place] [address] Dr. Les Bryan LDL CALC NORMAL SEE BELOW Normal [facility] Comment on above: Result Comment: <100 mg/dl OPTIMAL 100 - 129 mg/dl NEAR OR ABOVE OPTIMAL 130 - 159 mg/dl BORDERLINE HIGH 160 - 189 mg/dl HIGH >190 mg/dl VERY HIGH Performed By: #### E BROOKS UMICRO #### [facility] [address] [place] [address] Dr. Les Bryan Triglyceride [Mass/Vol] 168 mg/dL Critically high <=150 [facility] Comment on above: Performed By: #### Andi GUY UMICRO #### [facility] [address] [place] [address] Dr. Les Bryan VLDL CALC 33.6 mg/dL Normal [facility] Comment on above: Performed By: #### Andi GUY UMICRO #### [facility] [address] [place] [address] Dr. Les Bryan PROF 14(COMP METB)on 022 Albumin [Mass/Vol] 3.9 g/dL Normal 3.4-5.0 [facility] Comment on above: Performed By: #### Andi GUY UMICRO #### [facility] [address] [place] [address] Dr. Les Bryan Albumin/Globulin [Mass ratio] 0.9 {ratio} Normal [facility] Comment on above: Performed By: #### nAdi GUY UMICRO #### [facility] [address] [place] [address] Dr. Les Bryan ALP [Catalytic activity/Vol] 137 U/L Critically high 46-116 [facility] Comment on above: Performed By: #### Andi GUY UMICRO #### [facility] [address] [place] [address] Dr. Les Bryan ALT [Catalytic activity/Vol] 104 U/L Critically high 14-59 [facility] Comment on above: Performed By: #### Andi GUY UMICRO #### [facility] [address] [place] [address] Dr. Les Bryan Anion gap [Moles/Vol] 13.3 mmol/L Normal [facility] Comment on above: Performed By: #### Andi GUY UMICRO #### [facility] [address] [place] [address] Dr. Les Bryan AST [Catalytic activity/Vol] 59 U/L Critically high 15-37 [facility] Comment on above: Performed By: #### Andi GUY UMICRO #### [facility] [address] [place] [address] Dr. Les Bryan Bilirubin [Mass/Vol] 0.3 mg/dL Normal 0.2-1.0 [facility] Comment on above: Performed By: #### BARBER STEVENSONRO #### [facility] [address] [place] [address] Dr. Les Bryan Calcium [Mass/Vol] 9.0 mg/dL Normal 8.5-10.1 [facility] Comment on above: Performed By: #### BARBER STEVENSONRO #### [facility] [address] [place] [address] Dr. Les Bryan Chloride [Moles/Vol] 104 mmol/L Normal 98-107 [facility] Comment on above: Performed By: #### BARBER STEVENSONRO #### [facility] [address] [place] [address] Dr. Les Bryan CO2 [Moles/Vol] 25.0 mmol/L Normal 21.0-32.0 [facility] Comment on above: Performed By: #### BARBER STEVENSONRO #### [facility] [address] [place] [address] Dr. Les Bryan Creatinine [Mass/Vol] 0.70 mg/dL Normal 0.55-1.02 [facility] Comment on above: Performed By: #### BARBER STEVENSONRO #### [facility] [address] [place] [address] Dr. Les Bryan EGFR-AF NAURUAN 111 mL/min/1.73m2 Normal >=60 [facility] Comment on above: Performed By: #### BARBER STEVENSONRO #### [facility] [address] [place] [address] Dr. Les Bryan EGFR-NON AF NAURUAN 92 mL/min/1.73m2 Normal >=60 [facility] Comment on above: Performed By: #### BARBER STEVENSONRO #### [facility] [address] [place] [address] Dr. Les Bryan Globulin (S) [Mass/Vol] 4.3 g/dL Normal [facility] Comment on above: Performed By: #### E RUR, UMICRO #### [facility] [address] [address] [address] Les Bryan Glucose [Mass/Vol] 104 mg/dL Normal 74-106 [facility] Comment on above: Performed By: #### Andi GUY, UMICRO #### [facility] [address] [place] [address] Dr. Les Bryan Potassium [Moles/Vol] 4.3 mmol/L Normal 3.5-5.1 [facility] Comment on above: Performed By: #### E BROOKS, UMICRO #### [facility] [address] [place] [address] Dr. Les Bryan Protein [Mass/Vol] 8.2 g/dL Normal 6.4-8.2 [facility] Comment on above: Performed By: #### Andi GUY UMICRO #### [facility] [address] [place] [address] Dr. Les Bryan Sodium [Moles/Vol] 138 mmol/L Normal 136-145 [facility] Comment on above: Performed By: #### Andi GUY UMICRO #### [facility] [address] [place] [address] Dr. Les Bryan Urea nitrogen [Mass/Vol] 10.0 mg/dL Normal 7.0-18.0 [facility] Comment on above: Performed By: #### Andi GUY UMICRO #### [facility] [address] [place] [address] Dr. Les Bryan Urea nitrogen/Creatinine [Mass ratio] 14.3 mg/mg Normal [facility] Comment on above: Performed By: #### Andi GUY UMICRO #### [facility] [address] [place] [address] Dr. Les Bryan TSHon 04-17-2022 TSH 4.067 uIU/mL Critically high 0.358-3.740 [facility] Comment on above: Performed By: #### T SH, DBIL, BNP, FT3, T7, LIPID, CMP #### [facility] [address] [place] [address] Dr. Les Bryan INSULINon 04-06-2022 Insulin 34.6 uIU/mL Critically high 2.6-24.9 [facility] Comment on above: Performed By: #### RICARDO STEVENSON #### [facility] [facility] [address] [place] [address] Dr. Les Bryan T4 LABCORPon 04-06-2022 T4 [Mass/Vol] 6.7 ug/dL Normal 4.5-12.0 [facility] Comment on above: Performed By: #### [id number] #### [facility] [address] [place] [address] Dr. Les Bryan BNPon 04-05-2022 Natriuretic peptide B (Bld) [Mass/Vol] 18.0 pg/mL Normal <=450.0 [facility] Comment on above: Performed By: #### RICARDO STEVENSON #### [facility] [address] [place] [address] Dr. Les Bryan CBC AUTO DIFFon 04-05-2022 BASO # 0.1 103/ul Normal 0.0-0.1 [facility] Comment on above: Performed By: #### 4 [id number] #### [facility] [address] [place] [address] Dr. Les Bryan Basophils/100 WBC (Bld) 0.6 % Normal 0.2-2.0 [facility] Comment on above: Performed By: #### 4 [id number] #### [facility] [address] [place] [address] Dr. Les Bryan EO # 0.2 103/ul Normal 0.0-0.7 [facility] Comment on above: Performed By: #### 4 [id number] #### [facility] [address] [place] [address] Dr. Les Bryan Eosinophils/100 WBC (Bld) 1.9 % Normal 0.9-7.0 [facility] Comment on above: Performed By: #### 4 [id number] #### [facility] [address] [place] [address] Dr. Les Bryan Erythrocyte distribution width (RBC) [Ratio] 13.3 % Normal 11.0-15.0 [facility] Comment on above: Performed By: #### 4 [id number] #### [facility] [address] [place] [address] Dr. Les Bryan Hematocrit (Bld) [Volume fraction] 39.1 % Normal 36.0-48.0 [facility] Comment on above: Performed By: #### 4 [id number] #### [facility] [address] [place] [address] Dr. Les Bryan Hemoglobin (Bld) [Mass/Vol] 13.2 g/dL Normal 12.0-16.0 [facility] Comment on above: Performed By: #### 4 [id number] #### [facility] [address] [place] [address] Dr. Les Bryan IG # 0.08 10e3/ul Critically high 0.00-0.03 [facility] Comment on above: Performed By: #### 4 [id number] #### [facility] [address] [place] [address] Dr. Les Byran IG % 0.8 % Critically high 0.0-0.5 [facility] Comment on above: Performed By: #### 4 [id number] #### [facility] [address] [place] [address] Dr. Les Bryan LYMPH # 3.0 103/ul Normal 1.2-3.8 [facility] Comment on above: Performed By: #### 4 [id number] #### [facility] [address] [place] [address] Dr. Les Bryan Lymphocytes/100 WBC (Bld) 31.4 % Normal 20.5-60.0 [facility] Comment on above: Performed By: #### 4 [id number] #### [facility] [address] [place] [address] Dr. Les Bryan MANUAL DIFF REQ NO Normal [facility] Comment on above: Performed By: #### 4 [id number] #### [facility] [address] [place] [address] Dr. Les Bryan MCH (RBC) [Entitic mass] 30.1 pg Normal 26.7-34.0 [facility] Comment on above: Performed By: #### 4 [id number] #### [facility] [address] [place] [address] Dr. Les Bryan MCHC (RBC) [Mass/Vol] 33.8 g/dL Normal 29.9-35.2 [facility] Comment on above: Performed By: #### 4 [id number] #### [facility] [address] [place] [address] Dr. Les Bryan MCV (RBC) [Entitic vol] 89.1 fL Normal 81.0-99.0 [facility] Comment on above: Performed By: #### 4 [id number] #### [facility] [address] [place] [address] Dr. Les Bryan MONO # 0.6 103/ul Normal 0.3-0.8 [facility] Comment on above: Performed By: #### 4 [id number] #### [facility] [address] [place] [address] Dr. Les Bryan Monocytes/100 WBC (Bld) 6.1 % Normal 1.7-12.0 [facility] Comment on above: Performed By: #### 4 [id number] #### [facility] [address] [place] [address] Dr. Les Bryan NEUT # 5.6 103/ul Normal 1.4-6.5 [facility] Comment on above: Performed By: #### 4 [id number] #### [facility] [address] [place] [address] Dr. Les Bryan Neutrophils/100 WBC (Bld) 59.2 % Normal 43.0-75.0 [facility] Comment on above: Performed By: #### 4 [id number] #### [facility] [address] [place] [address] Dr. Les Bryan Platelet mean volume (Bld) [Entitic vol] 9.0 fL Critically low 9.5-13.5 [facility] Comment on above: Performed By: #### 4 [id number] #### [facility] [address] [place] [address] Dr. Les Bryan PLT 286 103/ul Normal 150-450 [facility] Comment on above: Performed By: #### 4 [id number] #### [facility] [address] [place] [address] Dr. Les Bryan RBC 4.39 106/ul Normal 4.20-5.40 [facility] Comment on above: Performed By: #### 4 [id number] #### [facility] [address] [place] [address] Dr. Les Byran WBC 9.5 103/ul Normal 4.0-11.0 [facility] Comment on above: Performed By: #### 4 [id number] #### [facility] [address] [place] [address] Dr. Les Bryan FREE T3on 04-05-2022 FREE T3 2.73 pg/mlL Normal 2.18-3.98 [facility] Comment on above: Performed By: #### BARBER STEVENSONRO #### [facility] [address] [place] [address] Dr. Les Bryan FREE THYROXINE INDEX T7on FTI 2.08 Normal 1.30-4.50 [facility] Comment on above: Performed By: #### BARBER STEVENSONRO #### [facility] [address] [place] [address] Dr. Les Bryan T3U 31.0 % Normal 30.0-39.0 [facility] Comment on above: Performed By: #### BARBER STEVENSONRO #### [facility] [address] [place] [address] Dr. Les Bryan T4 [Mass/Vol] 6.70 ug/dL Normal 4.80-13.90 [facility] Comment on above: Result Comment: T4 t esting performed by [facility] Performed By: #### SABINE STEVENSONICRO #### [facility] [address] [place] [address] Dr. Les Bryan GLYCOHEMOGLOBIN A1Con 2021 ADA RECOMMENDATION SEE BELOW Normal [facility] Comment on above: Result Comment: ADA RECOMMENDED LIMIT 4.0 - 6.0 ADA THERAPEUTIC TARGET < 7.0 ACTION SUGGESTED > 7.0 Performed By: #### [id number] #### [facility] [address] [place] [address] Dr. Les Bryan Glucose [Mass/Vol] 120 mg/dL Normal [facility] Comment on above: Performed By: #### 4 [id number] #### [facility] [address] [place] [address] Dr. Les Bryan HbA1c (Bld) [Mass fraction] 5.8 % Normal 4.5-6.2 [facility] Comment on above: Performed By: #### 4 [id number] #### [facility] [address] [place] [address] Dr. Les Bryan IRONon 04-05-2022 Iron [Mass/Vol] 105.0 ug/dL Normal 50.0-170.0 [facility] Comment on above: Performed By: #### RICARDO STEVENSON #### [facility] [address] [place] [address] Dr. Les Bryan LIPID PROFILEon 04-05-2022 CHOL-HDL RATIO NORM SEE BELOW Normal [facility] Comment on above: Result Comment: 3.3 - 4.4 LOW RISK 4.4 - 7.1 AVERAGE RISK 7.1 - 11.0 MODERATE RISK >11.0 HIGH RISK Performed By: #### RICARDO STEVENSON #### [facility] [address] [place] [address] Dr. Les Bryan Cholesterol [Mass/Vol] 217 mg/dL Critically high <=200 [facility] Comment on above: Performed By: #### RICARDO STEVENSON #### [facility] [address] [place] [address] Dr. Les Bryan Cholesterol in HDL [Mass/Vol] 49 mg/dL Normal 40-60 [facility] Comment on above: Performed By: #### RICARDO STEVENSON #### [facility] [address] [place] [address] Dr. Les Bryan Cholesterol in LDL [Mass/Vol] 128.2 mg/dL Normal [facility] Comment on above: Performed By: #### RICARDO STEVENSON #### [facility] [address] [place] [address] Dr. Les Bryan Cholesterol.total/Ch olesterol in HDL [Mass ratio] 4.4 {ratio} Normal [facility] Comment on above: Performed By: #### BARBER STEVENSONRO #### [facility] [address] [place] [address] Dr. Les Bryan HDL NORMAL > or = 60 mg/dl - LOW CARDIOVASCULAR RISK <40 mg/dl - HIGH CARDIOVASCULAR RISK Normal [facility] Comment on above: Performed By: #### RICARDO STEVENSON #### [facility] [address] [place] [address] Dr. Les Bryan LDL CALC NORMAL SEE BELOW Normal [facility] Comment on above: Result Comment: <100 mg/dl OPTIMAL 100 - 129 mg/dl NEAR OR ABOVE OPTIMAL 130 - 159 mg/dl BORDERLINE HIGH 160 - 189 mg/dl HIGH >190 mg/dl VERY HIGH Performed By: #### RICARDO STEVENSON #### [facility] [address] [place] [address] Dr. Les Bryan Triglyceride [Mass/Vol] 199 mg/dL Critically high <=150 [facility] Comment on above: Performed By: #### RICARDO STEVENSON #### [facility] [address] [place] [address] Dr. Les Bryan VLDL CALC 39.8 mg/dL Normal [facility] Comment on above: Performed By: #### BARBER STEVENSONRO #### [facility] [address] [place] [address] Dr. Les Bryan PROF 14(COMP METB)on 022 Albumin [Mass/Vol] 3.8 g/dL Normal 3.4-5.0 [facility] Comment on above: Performed By: #### RICARDO STEVENSON #### [facility] [address] [place], [place] [id number] Dr. Les Bryan Albumin/Globulin [Mass ratio] 0.9 {ratio} Normal [facility] Comment on above: Performed By: #### BARBER STEVENSONRO #### [facility] [address] [place] [address] Dr. Les Bryan ALP [Catalytic activity/Vol] 122 U/L Critically high 46-116 [facility] Comment on above: Performed By: #### BARBER STEVENSONRO #### [facility] [address] [place] [address] Dr. Les Bryan ALT [Catalytic activity/Vol] 90 U/L Critically high 14-59 [facility] Comment on above: Performed By: #### BARBER STEVENSONRO #### [facility] [address] [place] [address] Dr. Les Bryan Anion gap [Moles/Vol] 13.5 mmol/L Normal [facility] Comment on above: Performed By: #### BARBER STEVENSONRO #### [facility] [address] [place] [address] Dr. Les Bryan AST [Catalytic activity/Vol] 63 U/L Critically high 15-37 [facility] Comment on above: Performed By: #### BARBER STEVENSONRO #### [facility] [address] [place] [address] Dr. Les Bryan Bilirubin [Mass/Vol] 0.4 mg/dL Normal 0.2-1.0 [facility] Comment on above: Performed By: #### Andi GUY UMICRO #### [facility] [address] [place] [address] Dr. Les Bryan Calcium [Mass/Vol] 9.3 mg/dL Normal 8.5-10.1 [facility] Comment on above: Performed By: #### BARBER STEVENSONRO #### [facility] [address] [place] [address] Dr. Les Bryan Chloride [Moles/Vol] 103 mmol/L Normal 98-107 [facility] Comment on above: Performed By: #### E RUR, UMICRO #### [facility] [address] [address] [address] Les Bryan CO2 [Moles/Vol] 24.6 mmol/L Normal 21.0-32.0 [facility] Comment on above: Performed By: #### E RUR, UMICRO #### [facility] [address] [address] [address] Les Bryan Creatinine [Mass/Vol] 0.70 mg/dL Normal 0.55-1.02 [facility] Comment on above: Performed By: #### E LOKESHR, UMICRO #### [facility] [address] [address] [address] Les Bryan EGFR-AF NAURUAN >60 Normal >=60 [facility] Comment on above: Performed By: #### E LOKESHR, UMICRO #### [facility] [address] [place] [address] Dr. Les Bryan EGFR-NON AF NAURUAN >60 Normal >=60 [facility] Comment on above: Performed By: #### Andi CAMPAR, UMICRO #### [facility] [address] [address] [address] Les Bryan Globulin (S) [Mass/Vol] 4.1 g/dL Normal [facility] Comment on above: Performed By: #### Andi GUY, UMICRO #### [facility] [address] [address] [address] Les Bryan Glucose [Mass/Vol] 110 mg/dL Critically high 74-106 [facility] Comment on above: Performed By: #### E LOKESHR, UMICRO #### [facility] [address] [address] [address] Les Bryan Potassium [Moles/Vol] 4.1 mmol/L Normal 3.5-5.1 [facility] Comment on above: Performed By: #### E LOKESHR, UMICRO #### [facility] [address] [address] [address] Les Bryan Protein [Mass/Vol] 7.9 g/dL Normal 6.4-8.2 [facility] Comment on above: Performed By: #### Andi GUY UMICRO #### [facility] [address] [place] [address] Dr. Les Bryan Sodium [Moles/Vol] 137 mmol/L Normal 136-145 [facility] Comment on above: Performed By: #### Andi GUY UMICRO #### [facility] [address] [place] [address] Dr. Les Bryan Urea nitrogen [Mass/Vol] 9.0 mg/dL Normal 7.0-18.0 [facility] Comment on above: Performed By: #### SABINE STEVENSONICRO #### [facility] [address] [place] [address] Dr. Les Bryan Urea nitrogen/Creatinine [Mass ratio] 12.9 mg/mg Normal [facility] Comment on above: Performed By: #### BARBER STEVENSONRO #### [facility] [address] [place] [address] Dr. Les Bryan TSHon 04-05-2022 TSH 3.572 uIU/mL Normal 0.358-3.740 [facility] Comment on above: Performed By: #### BARBER STEVENSONRO #### [facility] [address] [place] [address] Dr. Les Bryan TSH RANGE SEE BELOW Normal [facility] Comment on above: Result Comment: <0.3 4 UIU/ml HYPERTHYROID 0.34-5.60 UIU/ml EUTHYROID >5.60 UIU/ml HYPOTHYROID Performed By: #### Andi GUY UMICRO #### [facility] [address] [place] [address] Dr. Les Bryan XR KUB 1 VIEWon [...] 2022-02-27 15:05 Normal [facility] AMYLASEon 02-25-2022 Amylase [Catalytic activity/Vol] 34 U/L Normal 25-115 [facility] Comment on above: Performed By: #### [id number] #### [facility] [address] [place] [address] Dr. Les Bryan CBC AUTO DIFFon 02-25-2022 BASO # 0.0 103/ul Normal 0.0-0.1 [facility] Comment on above: Performed By: #### C BC #### [facility] [address] [place] [address] Dr. Les Bryan Basophils/100 WBC (Bld) 0.4 % Normal 0.2-2.0 [facility] Comment on above: Performed By: #### C BC #### [facility] [address] [place] [address] Dr. Les Bryan EO # 0.3 103/ul Normal 0.0-0.7 [facility] Comment on above: Performed By: #### C BC #### [facility] [address] [place] [address] Dr. Les Bryan Eosinophils/100 WBC (Bld) 3.6 % Normal 0.9-7.0 [facility] Comment on above: Performed By: #### C BC #### [facility] [address] [place] [address] Dr. Les Bryan Erythrocyte distribution width (RBC) [Ratio] 13.1 % Normal 11.0-15.0 [facility] Comment on above: Performed By: #### C BC #### [facility] [address] [place] [address] Dr. Les Bryan Hematocrit (Bld) [Volume fraction] 40.6 % Normal 36.0-48.0 [facility] Comment on above: Performed By: #### C BC #### [facility] [address] [address] [address] Les Bryan Hemoglobin (Bld) [Mass/Vol] 13.3 g/dL Normal 12.0-16.0 [facility] Comment on above: Performed By: #### C BC #### [facility] [address] [address] [address] Les Bryan IG # 0.06 10e3/ul Critically high 0.00-0.03 [facility] Comment on above: Performed By: #### C BC #### [facility] [address] [address] [address] Les Bryan IG % 0.6 % Critically high 0.0-0.5 [facility] Comment on above: Performed By: #### C BC #### [facility] [address] [place] [address] Dr. Les Bryan LYMPH # 3.6 103/ul Normal 1.2-3.8 [facility] Comment on above: Performed By: #### C BC #### [facility] [address] [place] [address] Dr. Les Bryan Lymphocytes/100 WBC (Bld) 38.2 % Normal 20.5-60.0 [facility] Comment on above: Performed By: #### C BC #### [facility] [address] [place] [address] Dr. Les Bryan MANUAL DIFF REQ NO Normal [facility] Comment on above: Performed By: #### C BC #### [facility] [address] [place] [address] Dr. Les Bryan MCH (RBC) [Entitic mass] 29.7 pg Normal 26.7-34.0 [facility] Comment on above: Performed By: #### C BC #### [facility] [address] [place] [address] Dr. Les Bryan MCHC (RBC) [Mass/Vol] 32.8 g/dL Normal 29.9-35.2 [facility] Comment on above: Performed By: #### C BC #### [facility] [id number] Les Bryan MCV (RBC) [Entitic vol] 90.6 fL Normal 81.0-99.0 [facility] Comment on above: Performed By: #### C BC #### [facility] [address] [address] [address] Les Bryan MONO # 0.5 103/ul Normal 0.3-0.8 [facility] Comment on above: Performed By: #### C BC #### [facility] [address] [place] [address] Dr. Les Bryan Monocytes/100 WBC (Bld) 5.4 % Normal 1.7-12.0 [facility] Comment on above: Performed By: #### C BC #### [facility] [address] [place] [address] Dr. Les Bryan NEUT # 4.9 103/ul Normal 1.4-6.5 [facility] Comment on above: Performed By: #### C BC #### [facility] [address] [place] [address] Dr. Les Bryan Neutrophils/100 WBC (Bld) 51.8 % Normal 43.0-75.0 [facility] Comment on above: Performed By: #### C BC #### [facility] [address] [place] [address] Dr. Les Bryan Platelet mean volume (Bld) [Entitic vol] 9.2 fL Critically low 9.5-13.5 [facility] Comment on above: Performed By: #### C BC #### [facility] [address] [place] [address] Dr. Les Bryan PLT 335 103/ul Normal 150-450 [facility] Comment on above: Performed By: #### C BC #### [facility] [address] [place] [address] Dr. Les Bryan RBC 4.48 106/ul Normal 4.20-5.40 [facility] Comment on above: Performed By: #### C BC #### [facility] [address] [place] [address] Dr. Les Bryan WBC 9.4 103/ul Normal 4.0-11.0 [facility] Comment on above: Performed By: #### C #### [facility] [id number] Les Bryan CT ABD/PELVIS WO CONon [...] BRITT Date: 2022-02-25 19:05 Normal [facility] ER URINE PROFILEon 2 Bilirubin Ql (U) Negative Normal NEGATIVE [facility] Comment on above: Performed By: #### Andi GUY UMICRO #### [facility] [address] [place] [address] Dr. Les Bryan Clarity (U) CLEAR Normal CLEAR [facility] Comment on above: Performed By: #### Andi GUY UMICRO #### [facility] [address] [place] [address] Dr. Les Bryan Color (U) YELLOW Normal YELLOW [facility] Comment on above: Performed By: #### Andi GUY UMICRO #### [facility] [address] [place] [address] Dr. Les MOY A micrscopic examination will be performed if indicated. Normal [facility] Comment on above: Performed By: #### Andi GUY UMICRO #### [facility] [address] [place] [address] Dr. Les Bryan Glucose Ql (U) Negative Normal NEGATIVE [facility] Comment on above: Performed By: #### Andi GUY UMICRO #### [facility] [address] [place] [address] Dr. Les Bryan Hemoglobin Ql (U) LARGE Abnormal NEGATIVE [facility] Comment on above: Performed By: #### Andi GUY UMICRO #### [facility] [address] [place] [address] Dr. Les Bryan Ketones Ql (U) Negative Normal NEGATIVE [facility] Comment on above: Performed By: #### Andi GUY UMICRO #### [facility] [address] [place] [address] Dr. Les Bryan LEUKOCYTES TRACE Abnormal NEGATIVE [facility] Comment on above: Performed By: #### Andi GUY UMICRO #### [facility] [address] [place] [address] Dr. Les Bryan Nitrite Ql (U) Negative Normal NEGATIVE [facility] Comment on above: Performed By: #### Andi GUY UMICRO #### [facility] [address] [place] [address] Dr. Les Bryan pH (U) 7.0 [pH] Normal 5-9 [facility] Comment on above: Performed By: #### RICARDO STEVENSON #### [facility] [address] [place] [address] Dr. Les Bryan Protein (U) [Mass/Vol] 30 mg/dL Abnormal NEGATIVE/ TRACE [facility] Comment on above: Performed By: #### RICARDO STEVENSON #### [facility] [address] [place] [address] Dr. Les Bryan SPEC GRAVITY 1.025 Normal 1.005-<=1.025 [facility] Comment on above: Performed By: #### RICARDO STEVENSON #### [facility] [address] [place] [address] Dr. Les Bryan UR MICRO IND INDICATED Normal [facility] Comment on above: Performed By: #### RICARDO STEVENSON #### [facility] [address] [place] [address] Dr. Les Bryan Urobilinogen Qn (U) 0.2 {Racquel'U}/dL Normal 0.2 - 1. 0 [facility] Comment on above: Performed By: #### RICARDO STEVENSON #### [facility] [address] [place] [address] Dr. Les Bryan LIPASEon 02-25-2022 Lipase [Catalytic activity/Vol] 82.0 U/L Normal 73.0-393.0 [facility] Comment on above: Performed By: #### [id number] #### [facility] [address] [place] [address] Dr. Les Bryan PROF 14(COMP METB)on 022 Albumin [Mass/Vol] 3.7 g/dL Normal 3.4-5.0 [facility] Comment on above: Performed By: #### [id number] #### [facility] [address] [place] [address] Dr. Les Bryan Albumin/Globulin [Mass ratio] 0.9 {ratio} Normal [facility] Comment on above: Performed By: #### [id number] #### [facility] [address] [address] [address] Les Bryan ALP [Catalytic activity/Vol] 129 U/L Critically high 46-116 [facility] Comment on above: Performed By: #### [id number] #### [facility] [address] [address] [address] Les Bryan ALT [Catalytic activity/Vol] 86 U/L Critically high 14-59 [facility] Comment on above: Performed By: #### [id number] #### [facility] [address] [address] [address] Les Bryan Anion gap [Moles/Vol] 15.3 mmol/L Normal [facility] Comment on above: Performed By: #### [id number] #### [facility] [address] [address] [address] Les Bryan AST [Catalytic activity/Vol] 51 U/L Critically high 15-37 [facility] Comment on above: Performed By: #### [id number] #### [facility] [address] [address] [address] Les rByan Bilirubin [Mass/Vol] 0.2 mg/dL Normal 0.2-1.0 [facility] Comment on above: Performed By: #### [id number] #### [facility] [address] [address] [address] Les Bryan Calcium [Mass/Vol] 8.4 mg/dL Critically low 8.5-10.1 [facility] Comment on above: Performed By: #### [id number] #### [facility] [address] [address] [address] Les Bryan Chloride [Moles/Vol] 103 mmol/L Normal 98-107 [facility] Comment on above: Performed By: #### 4 [id number] #### [facility] [address] [address] [address] Les Bryan CO2 [Moles/Vol] 26.2 mmol/L Normal 21.0-32.0 [facility] Comment on above: Performed By: #### 4 [id number] #### [facility] [address] [address] [address] Les Bryan Creatinine [Mass/Vol] 0.72 mg/dL Normal 0.55-1.02 [facility] Comment on above: Performed By: #### [id number] #### [facility] [address] [address] [address] Les Bryan EGFR-AF NAURUAN >60 Normal >=60 [facility] Comment on above: Performed By: #### [id number] #### [facility] [address] [address] [address] Les Byran EGFR-NON AF NAURUAN >60 Normal >=60 [facility] Comment on above: Performed By: #### [id number] #### [facility] [address] [place] [address] Dr. Les Bryan Globulin (S) [Mass/Vol] 4.2 g/dL Normal [facility] Comment on above: Performed By: #### [id number] #### [facility] [address] [address] [address] Les Bryan Glucose [Mass/Vol] 121 mg/dL Critically high 74-106 [facility] Comment on above: Performed By: #### 4 [id number] #### [facility] [address] [address] [address] Les Bryan Potassium [Moles/Vol] 3.5 mmol/L Normal 3.5-5.1 [facility] Comment on above: Performed By: #### 4 [id number] #### [facility] [address] [address] [address] Les Bryan Protein [Mass/Vol] 7.9 g/dL Normal 6.1-8.2 [facility] Comment on above: Performed By: #### 4 [id number] #### [facility] [address] [address] [address] Les Bryan Sodium [Moles/Vol] 141 mmol/L Normal 136-145 [facility] Comment on above: Performed By: #### [id number] #### [facility] [address] [place] [address] Dr. Les Bryan Urea nitrogen [Mass/Vol] 14.0 mg/dL Normal 7.0-18.0 [facility] Comment on above: Performed By: #### 4 [id number] #### [facility] [address] [place] [address] Dr. Les Bryan Urea nitrogen/Creatinine [Mass ratio] 19.4 mg/mg Normal [facility] Comment on above: Performed By: #### 4 [id number] #### [facility] [address] [place] [address] Dr. Les Bryan URINE MICROSCOPIC ONLYon BACTERIA TRACE Abnormal NONE SEEN [facility] Comment on above: Performed By: #### Andi GUY, UMICRO #### [facility] [address] [place] [address] Dr. Les Bryan Bacteria identified Cx Nom (U) NOT INDICATED Normal [facility] Comment on above: Performed By: #### Andi GUY, UMICRO #### [facility] [address] [place] [address] Dr. Les Bryan CAST NONE SEEN Normal NONE SEEN [facility] Comment on above: Performed By: #### E BROOKS, UMICRO #### [facility] [address] [place] [address] Dr. Les Bryan Crystals LM Nom (Urine sed) NONE SEEN Normal NONE SEEN [facility] Comment on above: Performed By: #### E RUR, UMICRO #### [facility] [address] [place] [address] Dr. Les Bryan Epithelial cells LM Ql (Urine sed) MODERATE Abnormal NONE SEEN /RARE [facility] Comment on above: Performed By: #### Andi RUR, UMICRO #### [facility] [address] [place] [address] Dr. Les Bryan MUCOUS NONE SEEN Normal NONE SEEN [facility] Comment on above: Performed By: #### E BROOKS, UMICRO #### [facility] [address] [address] [address] Les Bryan RBC 20-50 Abnormal 0-2 [facility] Comment on above: Result Comment: cren ated RBCs Performed By: #### RICARDO STEVENSON #### [facility] [address] [place], [place] [address] Dr. Les Bryan WBC 2-5 Abnormal NONE SEEN [facility] Comment on above: Performed By: #### RICARDO STEVENSON #### [facility] [address] [address] [address] Les Bryan Vital Signs Date Time Vital Sign Value Performing Clinician Facility 12-02-2024 14:40-0500 Blood Pressure Location [employer] [facility] 12-02-2024 14:40-0500 Diastolic blood pressure 106 mm[Hg] [employer] [facility] 12-02-2024 14:40-0500 Heart rate 72 /min [employer] [facility] 12-02-2024 14:40-0500 Respiratory rate 16 /min [employer] [facility] 12-02-2024 14:40-0500 Systolic blood pressure 142 mm[Hg] [employer] [facility] [place] 09-13-2023 10:30-0500 Body height 162.56 cm Shae Silvestreler Other [facility] Other 09-13-2023 10:30-0500 Body mass index (BMI) [Ratio] 23.14 kg/m2 Shae Love Other [facility] Other 09-13-2023 10:30-0500 Body temperature 98.4 [degF] Shae Love Other [facility] Other 09-13-2023 10:30-0500 Body weight 61.15 kg Shae Love Other [facility] Other 09-13-2023 10:30-0500 Respiratory rate 18 /min Shae Love Other [facility] Other 09-13-2023 10:30-0500 SaO2% (BldA) [Mass fraction] 99 % Shae Love Other [facility] Other 04-21-2022 09:07-0400 Blood Pressure Location Jl YULIANAL [facility] [place] 04-21-2022 09:07-0400 Diastolic blood pressure 86 mm[Hg] Jl NILL [facility] [place] 04-21-2022 09:07-0400 Heart rate 92 /min Jl NILL [facility] [place] 04-21-2022 09:07-0400 Respiratory rate 16 /min Jl NILL [facility] [place] 04-21-2022 09:07-0400 Systolic blood pressure 127 mm[Hg] Jl NILL [facility] [place] Encounters Encounter Date Encounter Type Care Provider Facility Start: 01-12-2025 End: 01-12-2025 ambulatory Corky Ta DPM Facility:[facility] Start: 12-02-2024 End: 12-02-2024 ambulatory Jl FREDERICK [facility] Start: 12-02-2024 End: 12-02-2024 Patient encounter procedure Jl FREDERICK [facility] [place] Start: 06-12-2024 End: 06-12-2024 Emergency department patient visit [facility] Start: 09-13-2023 Office outpatient ne w 20 minutes Shae Love [facility] Start: 09-13-2023 End: 09-13-2023 ambulatory Shae Love [facility] Other Start: 09-13-2023 End: 09-13-2023 Patient encounter procedure [employer] INVESTIGATOR Shae Love Work Phone: [facility] Work Phone: Start: 10-09-2022 [...] End: 04-21-2022 Patient encounter procedure Jl FREDERICK [facility] [place] Start: 04-20-[address] ANGELICA DE Facility :[facility] Start: 04-17-2022 End: 04-18-[address] ANGELICA DE Facility:[facility] Start: 04-05-2022 End: 04-06-[address] ANGELICA DE Facility:[facility] Start: 02-27-2022 End: 02-28-[address] ANGELICA DE Facility:[facility] Start: 02-25-2022 End: 02-25-2022 ambulatory EMILY MCDERMOTT Facility:[facility] Procedures Date Procedure Procedure Detail Performing Clinician Start: 09-13-2023 Radiologic examinati on of knee [employer] INVESTIGATOR Shae Love Work Phone: Start: 05-03-2022 Excision of dermatofibroma Jl BRIDGESHerbert Comment on above: left ankle Start: 07-08-2015 laparoscopic cholecy stectomy with intraoperative cholangiogram Jl YULIANAHerbert Abdominal hysterectomy Sebastian BRIDGESHerbert Bilateral complete salpingectomy Jl BRIDGESHerbert Diagnostic laparoscopy Sebastian FREDERICK Loop electrosurgical excision procedure Jl BRIDGESHerbert Payers Date Payer Category Payer Unknown 2024 Unknown [id number] 1980 Unknown [id number] 2.16.84 [id number] 1980 Unknown [id number] 2.16.84 [id number] 1979 Unknown [id number] 2.16.84 [id number] 1979 Unknown [id number] 2.16.84 [id number] 1979 Unknown [id number] 2.16.84 [id number] 1979 Unknown [id number] 2.16.84 [id number] 1979 Unknown [id number] 2.16.84 [id number] 1979 Unknown [id number] 2.16.84 [id number] 1979 Unknown [id number] 2.16.84 [id number] 1979 Unknown [id number] 2.16.8 [id number] 1979 Unknown [id number] 2.16.8 [id number] 1979 Unknown [id number] 2.16. [id number] 1960 Self-pay 1960 Unknown [id number] Unknown [id number] 2.16.8 [id number] Social History Date Type Detail Facility Start: 04-21-2022 Tobacco smoking status Ex-smoker (fi nding) [facility] Tobacco smoking status Never [facility] Sex Assigned At Female [facility] Start: 1980 Sex Assigned At Female [facility] Start: 12-02-2024 Tobacco smoking status Heavy t obacco smoker (finding) [facility] Functional Status Date Assessment Result Facility 12-02-2024 Functional Status N/A [facility] 04-21-2022 Functional Status N/A [facility] Clinical Note 12-02-2024 Note Date & Type [...] malignant neoplasm of bladder: Father. [facility] Comment on above: Result Comment: [...] understanding and is agreeable to treatment plan [facility] Other Evaluation + Plan note Note Date & Type Note Facility Evaluation + Plan note Future Appointments Appointment Date:05/03/2022 03:00:00 PM Scheduled Provider:Jl FREDERICK MD Location[facility] Appointment Type:GS Procedure 30 [facility] [place] Evaluation + Plan note Note Date & Type Note Facility Evaluation + Plan note Future Appointments Appointment Date:05/12/2022 03:40:00 PM Scheduled Provider:Jl FREDERICK MD Location[facility] Appointment Type:GS Post Op 15 [facility] [place] Evaluation note Note Date & Type Note Facility Evaluation note No assessment information availa ble [facility] Work Phone: History general Narrative - Reported Note Date & Type Note Facility History general Narrative - Reported Type Medical History Anxiety disorder Medical History chronic depression Medical History thyriod Surgical History LEAP [facility] Other Hospital course Narrative Note Date & Type Note Facility Hospital course Narrative No data available for this section [facility] [place] [facility] Discharge instructions Note Date & Type Note Facility Hospital Discharge instructions No data available for this section [facility] [place] Progress note Note Date & Type Note Facility Progress note No data available for this section [facility] [place] Summary Purpose Family History No Family History [...] and content) DATE CREATED AUTHOR 10/20/2022 [facility] DATE CREATED AUTHOR AUTHOR'S ORGANIZ ATION 12/07/2023 [facility] DATE CREATED AUTHOR AUTHOR'S ORGANIZ ATION 06/15/2024 [facility] DATE CREATED AUTHOR AUTHOR'S ORGANIZ ATION 12/04/2024 [facility] DATE CREATED AUTHOR AUTHOR'S ORGANIZ ATION 01/25/2025 [facility] REASON FOR VISIT (unrecogniz ed section [...] BE BASED ON THE PRIMARY CLINICAL RECORDS. [facility] [employer] [facility]. provides no warranty or guarantee of the accuracy or completeness of information in this document.
--- OUTSIDE RECORDS SUMMARY | 2025-08-10 07:43 | XMS_ITS | Clinical Summary ---
Author Organization [facility] Address [address] [place] [address] Care Team Providers Care Rail Signal Designer Name Role Phone Unavailable Primary Care Provider [...]
--- OUTSIDE RECORDS SUMMARY | 2025-08-10 07:43 | XMS_ITS | Clinical Summary ---
Author Organization [facility] Address [address], [address] [place] [address] Care Team Providers Care Pyrometer Mechanic Name Role Phone Unavailable Primary Care Provider [...] Comments DTaP/Tdap/Td vaccine (1 - Tdap) 1998 Flu vaccine (#1) 05/29/2025 COVID-19 Vaccine ( - 2023-2 5 season) 2025 Polio vaccine Aged Out No longer elig semaj based on patient's age to complete this topic
--- NOTE | 2025-08-10 07:44 | CT_ITS ---
The [address] [address] Patient Name: LUCIA HERNDON MRN: [id number] date: 1980 Sex: F Assigned Patient Location: CT Current Patient Location: CT Accession/Order Number: [id number] Exam Date: 08/10/2025 08:45 Report Date: 08/10/2025 09:26 At the request of: ANGELICA VERONICA MD Procedure: CT abdomen pelvis w con CT abdomen pelvis w con 08/10/2025 9:07 AM SIGNS AND SYMPTOMS: ^Right Lower Quadrant Pain, Gastroenteritis TECHNIQUE: Multidetector ct axial images of the abdomen and pelvis were obtained without IV contrast. Multiplanar reformats were performed and reviewed to further define anatomy and possible pathology. CT was performed with one or more of the following dose reduction techniques: Automated exposure control, adjustment of the mA and/or kV according to patient size, or use of iterative reconstruction technique. COMPARISON: 02/25/2022 FINDINGS: Lower Chest: Within normal limits. ABDOMEN: Liver: The liver is hypoattenuating suggesting hepatic steatosis. There is a 1.4 cm focus of hypoattenuation left hepatic lobe presumably representing a cyst or hemangioma. Bile Ducts: Normal caliber. Gallbladder: Previously removed Pancreas: Within normal limits. Spleen: Within normal limits. Adrenals: Within normal limits. Kidneys: Simple cysts are noted in the renal cortices bilaterally requiring no further follow-up. There is a 5 mm nonobstructing stone in the left renal collecting system. Additional smaller stones are noted bilaterally. Pelvis: Reproductive Organs: No pelvic masses. Ureters: Within normal limits. Bladder: Within normal limits. Bowel: Normal caliber. There is a normal appendix in the right lower quadrant. Mesenteric Lymph Nodes: No enlarged mesenteric lymph nodes. Peritoneum: No ascites or free air, no fluid collection. Vessels: within normal limits Retroperitoneum: Within normal limits. Abdominal Wall: Within normal limits. Bones: Degenerative changes are noted in the lumbar spine CT/CT abdomen pelvis w con IMPRESSION: No bowel obstruction or obstructive uropathy. No free fluid or free air. Nonobstructing stones are noted in the renal collecting systems measuring up to 5 mm in greatest dimension on the left. There is a normal appendix in the right lower quadrant. Findings are consistent with hepatic steatosis. Impression dictated by: Donato Rockwell M.D. 08/10/2025 9:26 AM Dictation Location: [place] [address] Electronically authenticated by: [id number] Y Date: 08/10/2025 09:26
== END 2025-08-10 07:41 | disposition home or self-care (01) ==
LOC: CT 07:40
PROVIDERS: PCP Family Medicine; Visit Provider Family Medicine
DX: R10.31 Right lower quadrant pain (principal); K52.9 Noninfective gastroenteritis and colitis, unspecified; N20.0 Calculus of kidney; K76.0 Fatty (change of) liver, not elsewhere classified
CPT/HCPCS: 74177; Q9967

== ENCOUNTER 2025-08-11 09:23 | Outpatient (OUT) | payer BC, SELFPAY ==
--- OUTSIDE RECORDS SUMMARY | 2025-08-11 09:29 | XMS_ITS | CCD ---
Author Organization [facility] [employer]iniSynm Care Team Providers Care Assurance Engineer Name Role Phone Angelica De Primary [...] JEREMÍAS, DR DOMINGUEZ Consulting Unavailable JEREMÍAS, DR DOMINUGEZ Attending Unavailable JEREMÍAS, DR DOMINGUEZ Admitting Unavailable [...] allergy 3 Eruption of skin (disorder), rash [facility] (6 sources) Sulfamethoxazole / Trimethoprim; Translations: [sulfamethoxazole-tr imethoprim] Drug Allergy Weal (disorder), hives [facility] (2 sources) natural latex rubber Drug allergy (disorder) [facility] Repository (2 sources) Sulfamethoxazole / Trimethoprim Drug Allergy [facility] Repository (1 source) Sulfamethoxazole Drug Allergy 3 [facility] Repository (1 source) Trimethoprim Drug Allergy 3 [facility] Repository Medications Current Medications Medication Drug Class(es) [...] Drug Class(es) Dates Sig (Normalized) Sig (Original) [place] (1 source) [place] Not- Taking Problems Active Problems Problem Classification [...] No anaerobic growth after 72 hrs. Normal [facility] Comment on above: Performed By: #### A NAC #### [address] [address] C [place]ound[place] 01-14-2025 C Wound ------- Final No growth at 48 hours. Normal [facility] Comment on above: Performed By: #### W DC #### [address] [address] OR Trackon 01-12-2025 Specimens Received From [facility] Comment on above: Performed By: #### O [facility] Tracking Order #### [facility] [address] [place] [address] Ambulatory Visit Summaryon 0 12-02-2024 Ambulatory Visit [...] for choosing us for your care. Normal [facility] Drugs of Abuse, S/Jm 2023 Amphetamines, S/P Negative Normal Cutoff 20 [facility] Comment on above: Performed By: #### A DAU9S #### [facility] [address] [place] [address] Diamond Die Driller: Trey Carroll MD #### HEATHER CDP, MG #### [facility] [address] [place] [address] Diamond Die Driller: Belia Manjarrez MD Barbiturates, S/P Negative Normal Cutoff 50 [facility] Comment on above: Performed By: #### A DAU9S #### [facility] [address] [place] [address] Diamond Die Driller: Trey Carroll MD #### CP CDP, MG #### [facility] [address] [place] [address] Diamond Die Driller: Belia Manjarrez MD Benzodiazepines, S/P Negative Normal Cutoff 50 [facility] Comment on above: Performed By: #### A DAU9S #### [facility] [address] [place] [address] Diamond Die Driller: Trey Carroll MD #### CP, CDP, MG #### [facility] [address] [place] [address] Diamond Die Driller: Belia Manjarrez MD Buprenorphine, S/P Negative Normal Cutoff 1 [facility] Comment on above: Performed By: #### A DAU9S #### [facility] [address] [place] [address] Diamond Die Driller: Trey Carroll MD #### CP, CDP, MG #### [facility] [address] [place] [address] Diamond Die Driller: Belia Manjarrez MD Cocaine, Serum/Plas Negative Normal Cutoff 20 [facility] Comment on above: Performed By: #### A DAU9S #### [facility] [address] [place] [address] Diamond Die Driller: Trey Carroll MD #### CP, CDP, MG #### [facility] [address] [place] [address] Diamond Die Driller: Belia Manjarrez MD Comment See Note Normal [facility] Comment on above: Result Comment: (NOT [...] developed and its performance characteristics determined by [facility] [employer]. It has not been cleared or approved by the [place] Food and Drug Administration. This test was performed in a CLIA certified laboratory and is intended for clinical purposes. Performed By: [facility] [employer] [address] [place] [id number] [employer] Administrator: Trace Vazquez MD, PhD CLIA Number: [id number] Performed By: #### A DAU9S #### [address] [address] Diamond Die Driller: Trey Carroll MD #### CP, CDP, MG #### [address] [place] [address] Diamond Die Driller: Belia Manjarrez MD Methadone, S/P Negative Normal Cutoff 25 [facility] Comment on above: Performed By: #### A DAU9S #### [address] [address] Diamond Die Driller: Trey Carroll MD #### CP, CDP, MG #### [address] [place] [address] Diamond Die Driller: Belia Manjarrez MD Methamphetamine,S/P Negative Normal Cutoff 20 [facility] Comment on above: Performed By: #### A DAU9S #### [address] [address] Diamond Die Driller: Trey Carroll MD #### CP, CDP, MG #### [facility] [address] [place] [address] Diamond Die Driller: Belia Manjarrez MD Opiates, Serum/Plas Negative Normal Cutoff 20 [facility] Comment on above: Performed By: #### A DAU9S #### [address] [address] Diamond Die Driller: Trey Carroll MD #### CP, CDP, MG #### [facility] [address] [place] [address] Diamond Die Driller: Belia Manjarrez MD Oxycodone, S/P Negative Normal Cutoff 20 [facility] Comment on above: Performed By: #### A DAU9S #### [facility] [address] [place] [address] Diamond Die Driller: Trey Carroll MD #### CP, CDP, MG #### [facility] [address] [place] [address] Diamond Die Driller: Belia Manjarrez MD Phencyclidine, S/P Negative Normal Cutoff 10 [facility] Comment on above: Performed By: #### A DAU9S #### [facility] [address] [place] [address] Diamond Die Driller: Trey Carroll MD #### CP, CDP, MG #### [facility] [address] [place] [address] Diamond Die Driller: Belia Manjarrez MD THC, Serum/Plasma Negative Normal Cutoff 20 [facility] Comment on above: Performed By: #### A DAU9S #### [facility] [address] [place] [address] Diamond Die Driller: Trey Carroll MD #### CP, CDP, MG #### [facility] [address] [place] [address] Diamond Die Driller: Belia Manjarrez MD CBC with Diffon 06-12-2024 Abs. Basophil 0.04 k/uL Normal 0.00-0.20 [facility] Comment on above: Performed By: #### A DAU9S #### [facility] [address] [place] [address] Diamond Die Driller: Trey Carroll MD #### CP, CDP, MG #### [facility] [address] [place] [address] Diamond Die Driller: Belia Manjarrez MD Abs.Imm.Granulocyte 0.06 k/uL Normal 0.00-0.30 [facility] Comment on above: Performed By: #### A DAU9S #### [facility] [address] [place] [address] Diamond Die Driller: Trey Carroll MD #### CP, CDP, MG #### [facility] [address] [place] [address] Diamond Die Driller: Belia Manjarrez MD Abs.Neutrophil (Seg) 6.02 k/uL Normal 1.50-8.10 [facility] Comment on above: Performed By: #### A DAU9S #### [facility] [address] [place], [place] [id number] Diamond Die Driller: Trey Carroll MD #### CP, CDP, MG #### [facility] [address] [place] [address] [place] [address] Diamond Die Driller: Belia Manjarrez MD Basophils/100 WBC (Bld) 0 % Normal 0-2 [facility] Comment on above: Performed By: #### A DAU9S #### [facility] [address] [place], [place] [id number] Diamond Die Driller: Trey Carroll MD #### CP, CDP, MG #### [facility] [address] [place] [address] Diamond Die Driller: Belia Manjarrez MD Eosinophils (Bld) [#/Vol] 0.16 10*3/uL Normal 0.00-0.44 [facility] Comment on above: Performed By: #### A DAU9S #### [facility] [address] [place] [address] Diamond Die Driller: Trey Carroll MD #### CP, CDP, MG #### [facility] [address] [place] [address] [place] [address] Diamond Die Driller: Belia Manjarrez MD Eosinophils/100 WBC (Bld) 2 % Normal 1-4 [facility] Comment on above: Performed By: #### A DAU9S #### [facility] [address] [place] [address] Diamond Die Driller: Trey Carroll MD #### CP, CDP, MG #### [facility] [address] [place] [address] [place] [address] Diamond Die Driller: Belia Manjarrez MD Erythrocyte distribution width (RBC) [Ratio] 13.3 % Normal 11.8-14.4 [facility] Comment on above: Performed By: #### A DAU9S #### [address] [id number] Diamond Die Driller: Trey Carroll MD #### HEATHER, CDP, MG #### [address] [place] [address] Diamond Die Driller: Belia Manjarrez MD Hematocrit (Bld) [Volume fraction] 41.0 % Normal 36.3-47.1 [facility] Comment on above: Performed By: #### A DAU9S #### [facility] [address] [place], [place] [id number] Diamond Die Driller: Trey Carroll MD #### HEATHER, CDP, MG #### [facility] [address] [place] [address] [place] [address] Diamond Die Driller: Belia Manjarrez MD Hemoglobin (Bld) [Mass/Vol] 14.1 g/dL Normal 11.9-15.1 [facility] Comment on above: Performed By: #### A DAU9S #### [facility] [address] [place], [place] [id number] Diamond Die Driller: Trey Carroll MD #### CP, CDP, MG #### [facility] [address] [place] [address] Diamond Die Driller: Belia Manjarrez MD Immature granulocytes/100 WBC (Bld) 1 % High 0 [facility] Comment on above: Performed By: #### A DAU9S #### [facility] [address] [place] [address] Diamond Die Driller: Trey Carroll MD #### CP, CDP, MG #### [facility] [address] [place] [address] Diamond Die Driller: Belia Manjarrez MD Lymphocytes (Bld) [#/Vol] 3.39 10*3/uL Normal 1.10-3.70 [facility] Comment on above: Performed By: #### A DAU9S #### [address] [id number] Diamond [employer] Driller: Trey Carroll MD #### CP, CDP, MG #### [facility] [address] [place] [address] Diamond Die Driller: Belia Manjarrez MD Lymphocytes/100 WBC (Bld) 33 % Normal 24-43 [facility] Comment on above: Performed By: #### A DAU9S #### [facility] [address] [place] [address] Diamond Die Driller: Trey Carroll MD #### CP, CDP, MG #### [facility] [address] [place], [place] [id number] Diamond Die Driller: Belia Manjarrez MD MCH (RBC) [Entitic mass] 30.9 pg Normal 25.2-33.5 [facility] Comment on above: Performed By: #### A DAU9S #### [facility] [address] [place] [address] Diamond Die Driller: Trey Carroll MD #### CP, CDP, MG #### [facility] [address] [place] [address] Diamond Die Driller: Belia Manjarrez MD MCHC (RBC) [Mass/Vol] 34.4 g/dL Normal 28.4-34.8 [facility] Comment on above: Performed By: #### A DAU9S #### [facility] [address] [place] [address] Diamond Die Driller: Trey Carroll MD #### CP, CDP, MG #### [facility] [address] [place] [address] [place] [address] Diamond Die Driller: Belia Manjarrez MD MCV (RBC) [Entitic vol] 89.9 fL Normal 82.6-102.9 [facility] Comment on above: Performed By: #### A DAU9S #### [facility] [address] [place], [place] [id number] Diamond Die Driller: Trey Carroll MD #### HEATHER, CDP, MG #### [address] [place] [address] Diamond Die Driller: Belia Manjarrez MD Monocytes (Bld) [#/Vol] 0.67 10*3/uL Normal 0.10-1.20 [facility] Comment on above: Performed By: #### A DAU9S #### [facility] [address] [place] [address] Diamond Die Driller: Trey Carroll MD #### CP, CDP, MG #### [facility] [address] [place] [address] [place] [address] Diamond Die Driller: Belia Manjarrez MD Monocytes/100 WBC (Bld) 7 % Normal 3-12 [facility] Comment on above: Performed By: #### A DAU9S #### [facility] [address] [place] [address] Diamond Die Driller: Trey Carroll MD #### CP, CDP, MG #### [facility] [address] [place] [address] [place] [address] Diamond Die Driller: Belia Manjarrez MD Neutrophil (Seg) 57 % Normal 36-65 [facility] Comment on above: Performed By: #### A DAU9S #### [facility] [address] [place], [place] [id number] Diamond Die Driller: Trey Carroll MD #### CP, CDP, MG #### [facility] [address] [place] [address] Diamond Die Driller: Belia Manjarrez MD NRBC Automated 0.0 per 100 WBC Normal 0.0 [facility] Comment on above: Performed By: #### A DAU9S #### [facility] [address] [place], [place] [id number] Diamond Die Driller: Trey Carroll MD #### HEATHER CDP, MG #### [facility] [address] [place] [address] Diamond Die Driller: Belia Manjarrez MD Platelet mean volume (Bld) [Entitic vol] 9.6 fL Normal 8.1-13.5 [facility] Comment on above: Performed By: #### A DAU9S #### [facility] [address] [place], [place] [id number] Diamond Die Driller: Trey Carroll MD #### HEATHER, CDP, MG #### [facility] [address] [place] [address] Diamond Die Driller: Belia Manjarrez MD Platelets (Bld) [#/Vol] 314 10*3/uL Normal 138-453 [facility] Comment on above: Performed By: #### A DAU9S #### [facility] [address] [place] [address] Diamond Die Driller: Trey Carroll MD #### CP, CDP, MG #### [facility] [address] [place] [address] Diamond Die Driller: Belia Manjarrez MD RBC (Bld) [#/Vol] 4.56 10*6/uL Normal 3.95-5.11 [facility] Comment on above: Performed By: #### A DAU9S #### [facility] [address] [place] [address] Diamond Die Driller: Trey Carroll MD #### CP, CDP, MG #### [facility] [address] [place] [address] Diamond Die Driller: Belia Manjarrez MD WBC (Bld) [#/Vol] 10.3 10*3/uL Normal 3.5-11.3 [facility] Comment on above: Performed By: #### A DAU9S #### [facility] [address] [place] [address] Diamond Die Driller: Trey Carroll MD #### CP, CDP, MG #### [facility] [address] [place] [address] Diamond Die Driller: Belia Manjarrez MD Comp Metabolic Profon 2023 Albumin [Mass/Vol] 4.4 g/dL Normal 3.5-5.2 [facility] Comment on above: Performed By: #### A DAU9S #### [facility] [address] [place] [address] Diamond Die Driller: Trey Carroll MD #### CP, CDP, MG #### [facility] [address] [place] [address] Diamond Die Driller: Belia Manjarrez MD Albumin/Glob Ratio 1.5 Normal 1.0-2.5 [facility] Comment on above: Performed By: #### A DAU9S #### [facility] [address] [place] [address] Diamond Die Driller: Trey Carroll MD #### CP, CDP, MG #### [facility] [address] [place] [address] Diamond Die Driller: Belia Manjarrez MD Alkaline Phos 108 U/L High 35-104 [facility] Comment on above: Performed By: #### A DAU9S #### [facility] [address] [place] [address] Diamond Die Driller: Trey Carroll MD #### CP, CDP, MG #### [facility] [address] [place] [address] Diamond Die Driller: Belia Manjarrez MD ALT [Catalytic activity/Vol] 46 U/L High 5-33 [facility] Comment on above: Performed By: #### A DAU9S #### [facility] [address] [place], [place] [id number] Diamond Die Driller: Trey Carroll MD #### CP, CDP, MG #### [facility] [address] [place] [address] Diamond Die Driller: Belia Manjarrez MD Anion gap [Moles/Vol] 10 mmol/L Normal 9-17 [facility] Comment on above: Performed By: #### A DAU9S #### [facility] [address] [place] [address] Diamond Die Driller: Trey Carroll MD #### CP, CDP, MG #### [facility] [address] [place] [address] Diamond Die Driller: Belia Manjarrez MD AST [Catalytic activity/Vol] 32 U/L High <32 [facility] Comment on above: Performed By: #### A DAU9S #### [facility] [address] [place] [address] Diamond Die Driller: Trey Carroll MD #### CP, CDP, MG #### [facility] [address] [place] [address] Diamond Die Driller: Belia Manjarrez MD Bilirubin [Mass/Vol] 0.4 mg/dL Normal 0.3-1.2 [facility] Comment on above: Performed By: #### A DAU9S #### [facility] [address] [place], [place] [id number] Diamond Die Driller: Trey Carroll MD #### CP, CDP, MG #### [facility] [address] [place] [address] Diamond Die Driller: Belia Manjarrez MD BUN/CRE Ratio 12 Normal 9-20 [facility] Comment on above: Performed By: #### A DAU9S #### [facility] [address] [place], [place] [id number] Diamond Die Driller: Trey Carroll MD #### CP, CDP, MG #### [facility] [address] [place] [address] Diamond Die Driller: Belia Manjarrez MD Calcium [Mass/Vol] 9.1 mg/dL Normal 8.6-10.4 [facility] Comment on above: Performed By: #### A DAU9S #### [facility] [address] [place], [place] [id number] Diamond Die Driller: Trey Carroll MD #### CP, CDP, MG #### [facility] [address] [place] [address] Diamond Die Driller: Belia Manjarrez MD Chloride [Moles/Vol] 106 mmol/L Normal 98-107 [facility] Comment on above: Performed By: #### A DAU9S #### [facility] [address] [place] [address] Diamond Die Driller: Trey Carroll MD #### CP, CDP, MG #### [facility] [address] [place] [address] Diamond Die Driller: Belia Manjarrez MD CO2 [Moles/Vol] 26 mmol/L Normal 20-31 [facility] Comment on above: Performed By: #### A DAU9S #### [facility] [address] [place], [place] [id number] Diamond Die Driller: Trey Carroll MD #### CP, CDP, MG #### [facility] [address] [place] [address] Diamond Die Driller: Belia Manjarrez MD Creatinine [Mass/Vol] 0.5 mg/dL Normal 0.5-0.9 [facility] Comment on above: Performed By: #### A DAU9S #### [facility] [address] [place] [address] Diamond Die Driller: Trey Carroll MD #### CP, CDP, MG #### [facility] [address] [place] [address] Diamond Die Driller: Belia Manjarrez MD GFR/1.73 sq M.predicted among non-blacks MDRD (S/P/Bld) [Vol rate/Area] mL/min/{1.73_m2} Normal >60 [facility] Comment on above: Result Comment: These [...] #### A DAU9S #### [facility] [address] [place] [address] Diamond Die Driller: Trey Carroll MD #### CP, CDP, MG #### [facility] [address] [place] [address] Diamond Die Driller: Belia Manjarrez MD Glucose [Mass/Vol] 90 mg/dL Normal 70-99 [facility] Comment on above: Performed By: #### A DAU9S #### [facility] [address] [place] [address] Diamond Die Driller: Trey Carroll MD #### CP, CDP, MG #### [facility] [address] [place] [address] Diamond Die Driller: Belia Manjarrez MD Potassium [Moles/Vol] 4.2 mmol/L Normal 3.7-5.3 [facility] Comment on above: Performed By: #### A DAU9S #### [facility] [address] [place] [address] Diamond Die Driller: Trey Carroll MD #### HEATHER, CDP, MG #### [facility] [address] [place] [address] Diamond Die Driller: Belia Manjarrez MD Protein [Mass/Vol] 7.4 g/dL Normal 6.4-8.3 [facility] Comment on above: Performed By: #### A DAU9S #### [facility] [address] [place] [address] Diamond Die Driller: Trey Carroll MD #### CP, CDP, MG #### [facility] [address] [place] [address] Diamond Die Driller: Belia Manjarrez MD Sodium [Moles/Vol] 142 mmol/L Normal 135-144 [facility] Comment on above: Performed By: #### A DAU9S #### [facility] [address] [place] [address] Diamond [employer] Driller: Trey Carroll MD #### CP, CDP, MG #### [facility] [address] [place] [address] Diamond Die Driller: Belia Manjarrez MD Urea nitrogen [Mass/Vol] 6 mg/dL Normal 6-20 [facility] Comment on above: Performed By: #### A DAU9S #### [facility] [address] [place] [address] Diamond Die Driller: Trey Carroll MD #### CP, CDP, MG #### [address] [place] [address] Diamond Die Driller: Belia Manjarrez MD Drug Scr, Abuse, Uron 2023 Amphetamine(s),Ur Negative Normal NEG [facility] Comment on above: Result Comment: (Positive cutoff 1000 ng/mL) Performed By: #### D AU #### [address] [place], [place] [id number] Diamond Die Driller: Belia Manjarrez MD Barbiturate(s),Ur Negative Normal NEG [facility] Comment on above: Result Comment: (Positive cutoff 200 ng/mL) Performed By: #### D AU #### [address] [place] [address] Diamond Die Driller: Belia Manjarrez MD Benzodiazepine(s) Negative Normal NEG [facility] Comment on above: Result Comment: (Positive cutoff 200 ng/mL) Performed By: #### D AU #### [address] [place], [place] [id number] [employer] Driller: Belia Manjarrez MD Buprenorphrine, Ur Negative Normal NEG [facility] Comment on above: Result Comment: (Positive cutoff 5 ng/ml) Performed By: #### D AU #### [address] [place] [address] [employer] Driller: Belia Manjarrez MD Cannabinoid(s),Ur Negative Normal NEG [facility] Comment on above: Result Comment: (Positive cutoff 50 ng/mL) Performed By: #### D AU #### [address] [place], [place] [address] Diamond [employer] Driller: Belia Manjarrez MD Cocaine Metabolite Negative Normal NEG [facility] Comment on above: Result Comment: (Positive cutoff 300 ng/mL) Performed By: #### D AU #### [facility] [address] [place] [address] [place], [place] [address] Diamond Die Driller: Belia Manjarrez MD Fentanyl, Urine Negative Normal NEG [facility] Comment on above: Result Comment: (Positive cutoff 5 ng/ml) Performed By: #### D AU #### [address] [place], [place] [address] Diamond Die Driller: Belia Manjarrez MD Interpretive Info Assay provides medical screening only. The absence of expected drug(s) and/or Normal [facility] Comment on above: Result Comment: meta bolite(s) may indicate diluted or adulterated urine, limitations of testing or timing of collection. Testing for legal purposes should be confirmed by another method. To request confirmation of test result, please call the lab within 7 days of sample submission. Performed By: #### D AU #### [address] [place] [address] Diamond Die Driller: Belia Manjarrez MD Methadone Ql (U) Negative Normal NEG [facility] Comment on above: Result Comment: (Positive cutoff 300 ng/mL) Performed By: #### D AU #### [address] [place], [place] [id number] [employer] Die Driller: Belia Manjarrez MD Opiate(s), Ur Negative Normal NEG [facility] Comment on above: Result Comment: (Positive cutoff 300 ng/mL) Performed By: #### D AU #### [address] [place], [place] [id number] [employer] Driller: Belia Manjarrez MD Oxycodone, Urine Negative Normal NEG [facility] Comment on above: Result Comment: (Positive cutoff 100 ng/mL) Performed By: #### D AU #### [address] [place], [place] [id number] [employer] Driller: Belia Manjarrez MD Phencyclidine, Ur Negative Normal NEG [facility] Comment on above: Result Comment: (Positive cutoff 25 ng/mL) Performed By: #### D AU #### [facility] [address] [place] [address] Diamond Die Driller: Belia Manjarrez MD Magnesiumon 06-12-2024 Magnesium [Mass/Vol] 2.2 mg/dL Normal 1.6-2.6 [facility] Comment on above: Performed By: #### A [id number] #### [facility] [address] [place] [address] Diamond Die Driller: Trey Carroll MD #### CP, CDP, MG #### [facility] [address] [place] [address] [employer] Die Driller: Belia Manjarrez MD XR knee LT 4V*on 09-13-2023 XR knee LT 4V* [facility] [employer] Other XR knee LT 4V* [facility] [employer] Other XR knee LT 4V* [address] [place] [address] [employer] Other XR knee LT 4V* [place] [address] No rt [employer] Other XR knee LT 4V* XRay Report [employer] Other XR knee LT 4V* Signed [employer] Other XR knee LT 4V* Patient: Josephine Herndon MR#: [id number] Wesley [employer] Other XR knee LT 4V* 8 [employer] Other XR knee LT 4V* : 1980 Acct:[id number] [employer] Other XR knee LT 4V* Age/Sex: 43 / F ADM Date: 09/13/23 [employer] Other XR knee LT 4V* Loc: XDUCLY Room: Type: REG CLI [employer] Other XR knee LT 4V* Attending Dr: Shae Love APRN [employer] Other XR knee LT 4V* Copies to: Shae Love APRN [employer] Other XR knee LT 4V* Ordering Provider: Shae Love APRN [employer] Other XR knee LT 4V* Date of Service: 09/13/23 [employer] Other XR knee LT 4V* XR/XR knee LT 4V*: Injury [employer] Other XR knee LT 4V* XR knee LT 4V* 09/13/2023 10:51 AM [employer] Other XR knee LT 4V* SIGNS AND SYMPTOMS: Twisting injury to left knee with pain and swelling medially [employer] Other XR knee LT 4V* PROTOCOL: Frontal, lateral, and oblique radiographs of the left knee [employer] Other XR knee LT 4V* COMPARISON: None Nort [employer] Other XR knee LT 4V* FINDINGS: [employer] Other XR knee LT 4V* The joint spaces are preserved. There is a moderate joint effusion. There is no evidence of fracture [employer] Other XR knee LT 4V* or dislocation. No significant soft tissue swelling. [employer] Other XR knee LT 4V* XR/XR knee LT 4V* [employer] Other XR knee LT 4V* IMPRESSION: [employer] Other XR knee LT 4V* No fracture. [employer] Other XR knee LT 4V* There is a moderate joint effusion. [employer] Other XR knee LT 4V* Impression dictated by: Donato Rockwell M.D.09/13/2023 11:19 AM [employer] Other XR knee LT 4V* Dictation Location: [place] [address] [employer] Other XR knee LT 4V* Transcribed By: PWS 09/13/23 1119 [employer] Other XR knee LT 4V* Dictated By: Donato Rockwell II, MD 09/13/23 1117 [employer] Other XR knee LT 4V* Signed By: [employer] Other XR knee LT 4V* 09/13/23 1115 [employer] Other XR knee LT 4V* [facility] Main [place] [address] [place] [address] XRay Report Signed Patient: Josephine Herndon MR#: [id number] 8 : 1980 Acct:[id number] Age/Sex: 43 / F ADM Date: 09/13/23 Loc: XDUCLY Room: Type: [facility] Attending Dr: Shae Love APRN [...] Donato Rockwell M.D.09/13/2023 11:19 AM Dictation Location: [place] [address] Transcribed By: [facility] 09/13/23 111 Dictated By: Donato Rockwell II, MD 09/13/23 1118 Signed By: 09/13/23 111 [facility] CT CHEST WO CONon 10-10-2022 CT CHEST [...] AMANDA CASSIDY Date: 2022-10-10 10:35 Normal [facility] Covid-19 PCR (CVDTB)on SARS-CoV-2 (COVID-19) RNA RAYMOND+probe Ql (Unsp spec) Not detected Normal NOT DETECTED [facility] Comment on above: Result Comment: When [...] for this test is supported by the [place] of Health and Human Service's declaration that [...] be used). Performed By: #### C [facility] #### [facility] [address] [address] CHEST WO CONon [...] BELIA HENDRICKS Date: 2022-09-01 09:55 Normal [facility] MG MAMM SCREEN 3D GUSTAVO CADon 09-01-2022 MG MAMM SCREEN 3D GUSTAVO CAD Patient: JOSEPHINE HERNDONJosé Exam Date: 09/01/2022 : 1980 Gender:F Ordering : DR ANGELICA DE . Admission #: [id number] Family : Order #: [id number] CLICK HERE TO VIEW EXAM RADIOLOGY REPORT [...] bladder cancer at age 59. LOCATION: [facility] BREAST COMPOSITION: Scattered areas fibroglandular density. [...] Hendricks MD on 09/01/2022 at 09:32 Normal [facility] PAP ACOG PANEL 2: 21 to 29on 06-02-2022 . . Normal [facility] Comment on above: Result Comment: Perf ormed at: WB Performed By: #### [id number] #### [facility] [address] [address] [address] Les Bryan Age Gdln ACOG Testing 30-65 Normal [facility] Comment on above: Performed By: #### [id number] #### [facility] [address] [place], [place] [address] Dr. Les Bryan DIAGNOSIS: Comment Normal [facility] Comment on above: Result Comment: NEGA TIVE FOR INTRAEPITHELIAL LESION OR MALIGNANCY. Performed at: WB Performed By: #### [id number] #### [facility] [id number] Les Bryan HPV Aptima Negative Normal Negative [facility] Comment on above: Result Comment: This nucleic acid amplification test detects fourteen high-risk HPV types (16,18,31,33,35,39,45,51,52,56,58,59,66,68) without differentiation. Performed at: =G Performed By: #### 4 [id number] #### [facility] [address] [place] [address] Dr. Les Bryan Methodology: Comment Normal [facility] Comment on above: Result Comment: This liquid based ThinPrep(R) pap test was screened with the use of an image guided system. Performed at: WB Performed By: #### 4 [id number] #### [facility] [address] [place] [address] Dr. Les Bryan Note: Comment Normal [facility] [...] Performed at: WB Performed By: #### 4 [id number] #### [facility] [address] [place] [address] Dr. Les Bryan Performed by: Comment Normal [facility] [place] [facility] Comment on above: Result Comment: Bella Cuevas, Residency Director (ASCP) Performed at: WB Performed By: #### 4 [id number] #### [facility] [address] [place] [address] Dr. Les Bryan Specimen adequacy: Comment Normal [facility] Comment on above: Result Comment: Sati sfactory for evaluation. Endocervical and/or squamous metaplastic cells (endocervical component) are present. Performed at: WB Performed By: #### 4 [id number] #### [facility] [address] [place] [address] Dr. Les Bryan HEPATITIS PANEL, ACUTEon HBsAg Screen Negative Normal Negative [facility] Comment on above: Performed By: #### H EPACUT #### [facility] [address] [place] [address] Dr. Les Bryan HCV AB 0.2 s/co ratio Normal 0.0-0.9 [facility] Comment on above: Performed By: #### H EPACUT #### [facility] [address] [place] [address] Dr. Les Bryan Hep A Ab, IgM Negative Normal Negative [facility] Comment on above: Performed By: #### H EPACUT #### [facility] [address] [place] [address] Dr. Les Bryan Hep B Core Ab, IgM Negative Normal Negative [facility] Comment on above: Performed By: #### H EPACUT #### [facility] [address] [place] [address] Dr. Les Bryan Interpretation: Comment Normal [facility] Comment on above: Result Comment: Nega tive Not infected with HCV, unless recent infection is suspected or other evidence exists to indicate HCV infection. Performed By: #### H EPACUT #### [facility] [address] [place] [address] Dr. Les Bryan INSULINon 04-18-2022 Insulin 18.8 uIU/mL Normal 2.6-24.9 [facility] Comment on above: Performed By: #### I NSULIN #### [facility] [address] [place] [address] Dr. Les Bryan BILIRUBIN CONJUGATED (DIRECT )on 04-17-2022 BILI, CONJUGATED 0.1 mg/dL Normal 0.0-0.2 [facility] Comment on above: Performed By: #### RICARDO STEVENSON #### [facility] [address] [place] [address] Dr. Les Bryan BNPon 04-17-2022 Natriuretic peptide B (Bld) [Mass/Vol] 12.0 pg/mL Normal <=450.0 [facility] Comment on above: Performed By: #### RICARDO STEVENSON #### [facility] [address] [place] [address] Dr. Les Bryan CBC AUTO DIFFon 04-17-2022 BASO # 0.1 103/ul Normal 0.0-0.1 [facility] Comment on above: Performed By: #### C BC #### [facility] [address] [place] [address] [address] Les Bryan Basophils/100 WBC (Bld) 0.6 % Normal 0.2-2.0 [facility] Comment on above: Performed By: #### C BC #### [facility] [address] [place] [address] [address] Les Bryan EO # 0.3 103/ul Normal 0.0-0.7 [facility] Comment on above: Performed By: #### C BC #### [facility] [address] [place] [address] [address] Les Bryan Eosinophils/100 WBC (Bld) 3.0 % Normal 0.9-7.0 [facility] Comment on above: Performed By: #### C BC #### [facility] [address] [place] [address] [address] Les Bryan Erythrocyte distribution width (RBC) [Ratio] 13.2 % Normal 11.0-15.0 [facility] Comment on above: Performed By: #### C BC #### [facility] [address] [place] [address] [address] Les Bryan Hematocrit (Bld) [Volume fraction] 40.8 % Normal 36.0-48.0 [facility] Comment on above: Performed By: #### C BC #### [facility] [address] [address] [address] Les Bryan Hemoglobin (Bld) [Mass/Vol] 13.4 g/dL Normal 12.0-16.0 [facility] Comment on above: Performed By: #### C BC #### [facility] [address] [address] [address] Les Bryan IG # 0.07 10e3/ul Critically high 0.00-0.03 [facility] Comment on above: Performed By: #### C BC #### [facility] [address] [address] [address] Les Bryan IG % 0.8 % Critically high 0.0-0.5 [facility] [place] Comment on above: Performed By: #### C BC #### [facility] [address] [place] [address] Dr. Les Bryan LYMPH # 2.8 103/ul Normal 1.2-3.8 [facility] Comment on above: Performed By: #### C BC #### [facility] [address] [place] [address] Dr. Les Bryan Lymphocytes/100 WBC (Bld) 31.7 % Normal 20.5-60.0 [facility] Comment on above: Performed By: #### C BC #### [facility] [address] [place] [address] Dr. Les Bryan MANUAL DIFF REQ NO Normal [facility] [place] Comment on above: Performed By: #### C BC #### [facility] [address] [place] [address] Dr. Les Bryan MCH (RBC) [Entitic mass] 29.5 pg Normal 26.7-34.0 [facility] Comment on above: Performed By: #### C BC #### [facility] [address] [place] [address] Dr. Les Bryan MCHC (RBC) [Mass/Vol] 32.8 g/dL Normal 29.9-35.2 [facility] Comment on above: Performed By: #### C BC #### [facility] [address] [place] [address] Dr. Les Bryan MCV (RBC) [Entitic vol] 89.9 fL Normal 81.0-99.0 [facility] Comment on above: Performed By: #### C BC #### [facility] [address] [place] [address] Dr. Les Bryan MONO # 0.4 103/ul Normal 0.3-0.8 [facility] Comment on above: Performed By: #### C BC #### [facility] [address] [place] [address] Dr. Les Bryan Monocytes/100 WBC (Bld) 4.7 % Normal 1.7-12.0 [facility] Comment on above: Performed By: #### C BC #### [facility] [address] [place] [address] [address] Les Bryan NEUT # 5.3 103/ul Normal 1.4-6.5 [facility] Comment on above: Performed By: #### C BC #### [facility] [address] [place] [address] [address] Les Bryan Neutrophils/100 WBC (Bld) 59.2 % Normal 43.0-75.0 [facility] Comment on above: Performed By: #### C BC #### [facility] [address] [place] [address] Dr. Les Bryan Platelet mean volume (Bld) [Entitic vol] 9.1 fL Critically low 9.5-13.5 [facility] Comment on above: Performed By: #### C BC #### [facility] [address] [place] [address] Dr. Les Bryan PLT 309 103/ul Normal 150-450 [facility] Comment on above: Performed By: #### C BC #### [facility] [address] [place] [address] Dr. Les Bryan RBC 4.54 106/ul Normal 4.20-5.40 [facility] Comment on above: Performed By: #### C BC #### [facility] [address] [place] [address] Dr. Les Bryan WBC 8.9 103/ul Normal 4.0-11.0 [facility] Comment on above: Performed By: #### C BC #### [facility] [address] [place] [address] Dr. Les Bryan FREE T3on 04-17-2022 FREE T3 2.02 pg/mlL Critically low 2.18-3.98 [facility] Comment on above: Performed By: #### RICARDO STEVENSON #### [facility] [address] [place] [address] Dr. Les Bryan FREE THYROXINE INDEX T7on FTI 2.07 Normal 1.30-4.50 [facility] Comment on above: Performed By: #### RICARDO STEVENSON #### [facility] [address] [place] [address] Dr. Les Bryan T3U 30.0 % Normal 30.0-39.0 [facility] Comment on above: Performed By: #### RICARDO STEVENSON #### [facility] [address] [place] [address] Dr. Les Bryan T4 [Mass/Vol] 6.90 ug/dL Normal 4.80-13.90 [facility] [place] [facility] Comment on above: Performed By: #### RICARDO STEVENSON #### [facility] [address] [place] [address] Dr. Les Bryan GLYCOHEMOGLOBIN A1Con 2021 ADA RECOMMENDATION SEE BELOW Normal [facility] Comment on above: Result Comment: ADA RECOMMENDED LIMIT 4.0 - 6.0 ADA THERAPEUTIC TARGET < 7.0 ACTION SUGGESTED > 7.0 Performed By: #### A 1C #### [facility] [address] [place] [address] Dr. Les rByan Glucose [Mass/Vol] 120 mg/dL Normal [facility] Comment on above: Performed By: #### A 1C #### [facility] [address] [place] [address] Dr. Les Bryan HbA1c (Bld) [Mass fraction] 5.8 % Normal 4.5-6.2 [facility] Comment on above: Performed By: #### A 1C #### [facility] [address] [place] [address] Dr. Les Bryan IRONon 04-17-2022 Iron [Mass/Vol] 66.0 ug/dL Normal 50.0-170.0 [facility] [place] Comment on above: Performed By: #### RICARDO STEVENSON #### [facility] [address] [place] [address] Dr. Les Bryan LIPID PROFILEon 04-17-2022 CHOL-HDL RATIO NORM SEE BELOW Normal [facility] Comment on above: Result Comment: 3.3 - 4.4 LOW RISK 4.4 - 7.1 AVERAGE RISK 7.1 - 11.0 MODERATE RISK >11.0 HIGH RISK Performed By: #### Andi GUY UMICRO #### [facility] [address] [address] [address] Les Bryan Cholesterol [Mass/Vol] 244 mg/dL Critically high <=200 [facility] Comment on above: Performed By: #### Andi GUY UMICRO #### [facility] [address] [address] [address] Les Bryan Cholesterol in HDL [Mass/Vol] 55 mg/dL Normal 40-60 [facility] Comment on above: Performed By: #### Andi GUY UMICRO #### [facility] [address] [place] [address] Dr. Les Bryan Cholesterol in LDL [Mass/Vol] 155.4 mg/dL Normal [facility] Comment on above: Performed By: #### Andi GUY UMICRO #### [facility] [address] [place] [address] Dr. Les Bryan Cholesterol.total/Ch olesterol in HDL [Mass ratio] 4.4 {ratio} Normal [facility] Comment on above: Performed By: #### Andi GUY UMICRO #### [facility] [address] [place] [address] Dr. Les Bryan HDL NORMAL > or = 60 mg/dl - LOW CARDIOVASCULAR RISK <40 mg/dl - HIGH CARDIOVASCULAR RISK Normal [facility] Comment on above: Performed By: #### Andi GUY UMICRO #### [facility] [address] [place] [address] Dr. Les Bryan LDL CALC NORMAL SEE BELOW Normal [facility] Comment on above: Result Comment: <100 mg/dl OPTIMAL 100 - 129 mg/dl NEAR OR ABOVE OPTIMAL 130 - 159 mg/dl BORDERLINE HIGH 160 - 189 mg/dl HIGH >190 mg/dl VERY HIGH Performed By: #### E BROOKS UMICRO #### [facility] [address] [place] [address] Dr. Les Bryan Triglyceride [Mass/Vol] 168 mg/dL Critically high <=150 [facility] Comment on above: Performed By: #### Andi GUY UMICRO #### [facility] [address] [place] [address] Dr. Les Bryan VLDL CALC 33.6 mg/dL Normal [facility] Comment on above: Performed By: #### Andi GUY UMICRO #### [facility] [address] [place] [address] Dr. Les Bryan PROF 14(COMP METB)on 022 Albumin [Mass/Vol] 3.9 g/dL Normal 3.4-5.0 [facility] Comment on above: Performed By: #### Andi GUY UMICRO #### [facility] [address] [place] [address] Dr. Les Bryan Albumin/Globulin [Mass ratio] 0.9 {ratio} Normal [facility] Comment on above: Performed By: #### Andi GUY UMICRO #### [facility] [address] [place] [address] Dr. Les Bryan ALP [Catalytic activity/Vol] 137 U/L Critically high 46-116 [facility] Comment on above: Performed By: #### Andi GUY UMICRO #### [facility] [address] [place] [address] Dr. Les Bryan ALT [Catalytic activity/Vol] 104 U/L Critically high 14-59 [facility] Comment on above: Performed By: #### Andi GUY UMICRO #### [facility] [address] [place] [address] Dr. Les Bryan Anion gap [Moles/Vol] 13.3 mmol/L Normal [facility] Comment on above: Performed By: #### Andi GUY UMICRO #### [facility] [address] [place] [address] Dr. Les Bryan AST [Catalytic activity/Vol] 59 U/L Critically high 15-37 [facility] Comment on above: Performed By: #### Andi GUY UMICRO #### [facility] [address] [place] [address] Dr. Les Bryan Bilirubin [Mass/Vol] 0.3 mg/dL Normal 0.2-1.0 [facility] Comment on above: Performed By: #### BARBER STEVENSONRO #### [facility] [address] [place] [address] Dr. Les Bryan Calcium [Mass/Vol] 9.0 mg/dL Normal 8.5-10.1 [facility] Comment on above: Performed By: #### BARBER STEVENSONRO #### [facility] [address] [place] [address] Dr. Les Bryan Chloride [Moles/Vol] 104 mmol/L Normal 98-107 [facility] Comment on above: Performed By: #### BARBER STEVENSONRO #### [facility] [address] [place] [address] Dr. Les Bryan CO2 [Moles/Vol] 25.0 mmol/L Normal 21.0-32.0 [facility] Comment on above: Performed By: #### BARBER STEVENSONRO #### [facility] [address] [place] [address] Dr. Les Bryan Creatinine [Mass/Vol] 0.70 mg/dL Normal 0.55-1.02 [facility] Comment on above: Performed By: #### BARBER STEVENSONRO #### [facility] [address] [place] [address] Dr. Les Bryan EGFR-AF ANGUILLAN 111 mL/min/1.73m2 Normal >=60 [facility] Comment on above: Performed By: #### BARBER STEVENSONRO #### [facility] [address] [place] [address] Dr. Les Bryan EGFR-NON AF ANGUILLAN 92 mL/min/1.73m2 Normal >=60 [facility] Comment on above: Performed By: #### BARBER STEVENSONRO #### [facility] [address] [place] [address] Dr. Les Bryan Globulin (S) [Mass/Vol] 4.3 g/dL Normal [facility] Comment on above: Performed By: #### E RUR, UMICRO #### [facility] [address] [address] [address] Les Bryan Glucose [Mass/Vol] 104 mg/dL Normal 74-106 [facility] Comment on above: Performed By: #### Andi GUY, UMICRO #### [facility] [address] [place] [address] Dr. Les Bryan Potassium [Moles/Vol] 4.3 mmol/L Normal 3.5-5.1 [facility] Comment on above: Performed By: #### E BROOKS, UMICRO #### [facility] [address] [place] [address] Dr. Les Bryan Protein [Mass/Vol] 8.2 g/dL Normal 6.4-8.2 [facility] Comment on above: Performed By: #### Andi GUY UMICRO #### [facility] [address] [place] [address] Dr. Les Bryan Sodium [Moles/Vol] 138 mmol/L Normal 136-145 [facility] Comment on above: Performed By: #### Andi GUY UMICRO #### [facility] [address] [place] [address] Dr. Les Bryan Urea nitrogen [Mass/Vol] 10.0 mg/dL Normal 7.0-18.0 [facility] Comment on above: Performed By: #### Andi GUY UMICRO #### [facility] [address] [place] [address] Dr. Les Bryan Urea nitrogen/Creatinine [Mass ratio] 14.3 mg/mg Normal [facility] Comment on above: Performed By: #### Andi GUY UMICRO #### [facility] [address] [place] [address] Dr. Les Bryan TSHon 04-17-2022 TSH 4.067 uIU/mL Critically high 0.358-3.740 [facility] Comment on above: Performed By: #### T SH, DBIL, BNP, FT3, T7, LIPID, CMP #### [facility] [address] [place] [address] Dr. Les Bryan INSULINon 04-06-2022 Insulin 34.6 uIU/mL Critically high 2.6-24.9 [facility] Comment on above: Performed By: #### RICARDO STEVENSON #### [facility] [address] [place] [address] Dr. Les Bryan T4 LABCORPon 04-06-2022 T4 [Mass/Vol] 6.7 ug/dL Normal 4.5-12.0 [facility] Comment on above: Performed By: #### [id number] #### [facility] [address] [place] [address] Dr. Les Bryan BNPon 04-05-2022 Natriuretic peptide B (Bld) [Mass/Vol] 18.0 pg/mL Normal <=450.0 [facility] Comment on above: Performed By: #### RICARDO STEVENSON #### [facility] [address] [place] [address] Dr. Les Bryan CBC AUTO DIFFon 04-05-2022 BASO # 0.1 103/ul Normal 0.0-0.1 [facility] Comment on above: Performed By: #### [id number] #### [facility] [address] [place] [address] Dr. Les Bryan Basophils/100 WBC (Bld) 0.6 % Normal 0.2-2.0 [facility] Comment on above: Performed By: #### [id number] #### [facility] [address] [place] [address] Dr. eLs Bryan EO # 0.2 103/ul Normal 0.0-0.7 [facility] Comment on above: Performed By: #### [id number] #### [facility] [address] [place] [address] Dr. Les Bryan Eosinophils/100 WBC (Bld) 1.9 % Normal 0.9-7.0 [facility] Comment on above: Performed By: #### [id number] #### [facility] [address] [place] [address] Dr. Les Bryan Erythrocyte distribution width (RBC) [Ratio] 13.3 % Normal 11.0-15.0 [facility] Comment on above: Performed By: #### 4 [id number] #### [facility] [address] [place] [address] Dr. Les Bryan Hematocrit (Bld) [Volume fraction] 39.1 % Normal 36.0-48.0 [facility] Comment on above: Performed By: #### [id number] #### [facility] [address] [place] [address] Dr. Les Bryan Hemoglobin (Bld) [Mass/Vol] 13.2 g/dL Normal 12.0-16.0 [facility] Comment on above: Performed By: #### 4 [id number] #### [facility] [address] [place] [address] Dr. Les Bryan IG # 0.08 10e3/ul Critically high 0.00-0.03 [facility] Comment on above: Performed By: #### 4 [id number] #### [facility] [address] [place] [address] Dr. Les Bryan IG % 0.8 % Critically high 0.0-0.5 [facility] Comment on above: Performed By: #### 4 [id number] #### [facility] [address] [place] [address] Dr. Les Bryan LYMPH # 3.0 103/ul Normal 1.2-3.8 [facility] Comment on above: Performed By: #### [id number] #### [facility] [address] [place] [address] Dr. Les Bryan Lymphocytes/100 WBC (Bld) 31.4 % Normal 20.5-60.0 [facility] Comment on above: Performed By: #### 4 [id number] #### [facility] [address] [place] [address] Dr. Les Bryan MANUAL DIFF REQ NO Normal [facility] Comment on above: Performed By: #### [id number] #### [facility] [address] [place] [address] Dr. Les Bryan MCH (RBC) [Entitic mass] 30.1 pg Normal 26.7-34.0 [facility] Comment on above: Performed By: #### [id number] #### [facility] [address] [place] [address] Dr. Les Bryan MCHC (RBC) [Mass/Vol] 33.8 g/dL Normal 29.9-35.2 [facility] Comment on above: Performed By: #### 4 [id number] #### [facility] [address] [place] [address] Dr. Les Bryan MCV (RBC) [Entitic vol] 89.1 fL Normal 81.0-99.0 [facility] Comment on above: Performed By: #### 4 [id number] #### [facility] [address] [place] [address] Dr. Les Bryan MONO # 0.6 103/ul Normal 0.3-0.8 [facility] Comment on above: Performed By: #### 4 [id number] #### [facility] [address] [place] [address] Dr. Les Bryan Monocytes/100 WBC (Bld) 6.1 % Normal 1.7-12.0 [facility] Comment on above: Performed By: #### 4 [id number] #### [facility] [address] [place] [address] Dr. Les Bryan NEUT # 5.6 103/ul Normal 1.4-6.5 [facility] Comment on above: Performed By: #### 4 [id number] #### [facility] [address] [place] [address] Dr. Les Bryan Neutrophils/100 WBC (Bld) 59.2 % Normal 43.0-75.0 [facility] Comment on above: Performed By: #### 4 [id number] #### [facility] [address] [place] [address] Dr. Les Bryan Platelet mean volume (Bld) [Entitic vol] 9.0 fL Critically low 9.5-13.5 [facility] Comment on above: Performed By: #### [id number] #### [facility] [address] [place] [address] Dr. Les Bryan PLT 286 103/ul Normal 150-450 [facility] Comment on above: Performed By: #### 4 [id number] #### [facility] [address] [place] [address] Dr. Les Bryan RBC 4.39 106/ul Normal 4.20-5.40 [facility] Comment on above: Performed By: #### 4 [id number] #### [facility] [address] [place] [address] Dr. Les Bryan WBC 9.5 103/ul Normal 4.0-11.0 [facility] Comment on above: Performed By: #### 4 [id number] #### [facility] [address] [place] [address] Dr. Les Bryan FREE T3on 04-05-2022 FREE T3 2.73 pg/mlL Normal 2.18-3.98 [facility] Comment on above: Performed By: #### BARBER STEVENSONRO #### [facility] [address] [place] [address] Dr. Les Bryan FREE THYROXINE INDEX T7on FTI 2.08 Normal 1.30-4.50 [facility] Comment on above: Performed By: #### BARBER STEVENSONRO #### [facility] [address] [place] [address] Dr. Les Bryan T3U 31.0 % Normal 30.0-39.0 [facility] Comment on above: Performed By: #### BARBER STEVENSONRO #### [facility] [address] [place] [address] Dr. Les Bryan T4 [Mass/Vol] 6.70 ug/dL Normal 4.80-13.90 [facility] Comment on above: Result Comment: T4 t esting performed by [facility] Performed By: #### SABINE STEVENSONICRO #### [facility] [address] [place] [address] Dr. Les Bryan GLYCOHEMOGLOBIN A1Con 2021 ADA RECOMMENDATION SEE BELOW Normal [facility] Comment on above: Result Comment: ADA RECOMMENDED LIMIT 4.0 - 6.0 ADA THERAPEUTIC TARGET < 7.0 ACTION SUGGESTED > 7.0 Performed By: #### [id number] #### [facility] [address] [place] [address] Dr. Les Bryan Glucose [Mass/Vol] 120 mg/dL Normal [facility] Comment on above: Performed By: #### 4 [id number] #### [facility] [address] [place] [address] Dr. Les Bryan HbA1c (Bld) [Mass fraction] 5.8 % Normal 4.5-6.2 [facility] Comment on above: Performed By: #### [id number] #### [facility] [address] [place] [address] Dr. Les Bryan IRONon 04-05-2022 Iron [Mass/Vol] 105.0 ug/dL Normal 50.0-170.0 [facility] Comment on above: Performed By: #### RICARDO STEVENSON #### [facility] [address] [place] [address] Dr. Les Bryan LIPID PROFILEon 04-05-2022 CHOL-HDL RATIO NORM SEE BELOW Normal [facility] Comment on above: Result Comment: 3.3 - 4.4 LOW RISK 4.4 - 7.1 AVERAGE RISK 7.1 - 11.0 MODERATE RISK >11.0 HIGH RISK Performed By: #### RICARDO STEVENSON #### [facility] [address] [place] [address] Dr. Les Bryan Cholesterol [Mass/Vol] 217 mg/dL Critically high <=200 [facility] Comment on above: Performed By: #### RICARDO STEVENSON #### [facility] [address] [place] [address] Dr. Les Bryan Cholesterol in HDL [Mass/Vol] 49 mg/dL Normal 40-60 [facility] Comment on above: Performed By: #### RICARDO STEVENSON #### [facility] [address] [place] [address] Dr. Les Bryan Cholesterol in LDL [Mass/Vol] 128.2 mg/dL Normal [facility] Comment on above: Performed By: #### RICARDO STEVENSON #### [facility] [address] [place] [address] Dr. Les Bryan Cholesterol.total/Ch olesterol in HDL [Mass ratio] 4.4 {ratio} Normal [facility] Comment on above: Performed By: #### BARBER STEVENSONRO #### [facility] [address] [place] [address] Dr. Les Bryan HDL NORMAL > or = 60 mg/dl - LOW CARDIOVASCULAR RISK <40 mg/dl - HIGH CARDIOVASCULAR RISK Normal [facility] Comment on above: Performed By: #### RICARDO STEVENSON #### [facility] [address] [place] [address] Dr. Les Brayn LDL CALC NORMAL SEE BELOW Normal [facility] Comment on above: Result Comment: <100 mg/dl OPTIMAL 100 - 129 mg/dl NEAR OR ABOVE OPTIMAL 130 - 159 mg/dl BORDERLINE HIGH 160 - 189 mg/dl HIGH >190 mg/dl VERY HIGH Performed By: #### RICARDO STEVENSON #### [facility] [address] [place] [address] Dr. Les Bryan Triglyceride [Mass/Vol] 199 mg/dL Critically high <=150 [facility] Comment on above: Performed By: #### RICARDO STEVENSON #### [facility] [address] [place] [address] Dr. Les Bryan VLDL CALC 39.8 mg/dL Normal [facility] Comment on above: Performed By: #### BARBER STEVENSONRO #### [facility] [address] [place] [address] Dr. Les Bryan PROF 14(COMP METB)on 022 Albumin [Mass/Vol] 3.8 g/dL Normal 3.4-5.0 [facility] Comment on above: Performed By: #### RICARDO STEVENSON #### [facility] [address] [place], [place] [id number] Dr. Les Bryan Albumin/Globulin [Mass ratio] 0.9 {ratio} Normal [facility] Comment on above: Performed By: #### BARBER STEVENSONRO #### [facility] [address] [place] [address] Dr. Les Bryan ALP [Catalytic activity/Vol] 122 U/L Critically high 46-116 [facility] Comment on above: Performed By: #### BARBER STEVENSONRO #### [facility] [address] [place] [address] Dr. Les Bryan ALT [Catalytic activity/Vol] 90 U/L Critically high 14-59 [facility] Comment on above: Performed By: #### BARBER STEVENSONRO #### [facility] [address] [place] [address] Dr. Les Bryan Anion gap [Moles/Vol] 13.5 mmol/L Normal [facility] Comment on above: Performed By: #### BARBER STEVENSONRO #### [facility] [address] [place] [address] Dr. Les Bryan AST [Catalytic activity/Vol] 63 U/L Critically high 15-37 [facility] Comment on above: Performed By: #### BARBER STEVENSONRO #### [facility] [address] [place] [address] Dr. Les Bryan Bilirubin [Mass/Vol] 0.4 mg/dL Normal 0.2-1.0 [facility] Comment on above: Performed By: #### Andi GUY UMICRO #### [facility] [address] [place] [address] Dr. Les Bryan Calcium [Mass/Vol] 9.3 mg/dL Normal 8.5-10.1 [facility] Comment on above: Performed By: #### BARBER STEVENSONRO #### [facility] [address] [place] [address] Dr. Les Bryan Chloride [Moles/Vol] 103 mmol/L Normal 98-107 [facility] Comment on above: Performed By: #### E RUR, UMICRO #### [facility] [address] [address] [address] Les Bryan CO2 [Moles/Vol] 24.6 mmol/L Normal 21.0-32.0 [facility] Comment on above: Performed By: #### E RUR, UMICRO #### [facility] [address] [address] [address] Les Bryan Creatinine [Mass/Vol] 0.70 mg/dL Normal 0.55-1.02 [facility] Comment on above: Performed By: #### E LOKESHR, UMICRO #### [facility] [address] [address] [address] Les Bryan EGFR-AF ANGUILLAN >60 Normal >=60 [facility] Comment on above: Performed By: #### E LOKESHR, UMICRO #### [facility] [address] [place] [address] Dr. Les Bryan EGFR-NON AF ANGUILLAN >60 Normal >=60 [facility] Comment on above: Performed By: #### Andi CAMPAR, UMICRO #### [facility] [address] [address] [address] Les Bryan Globulin (S) [Mass/Vol] 4.1 g/dL Normal [facility] Comment on above: Performed By: #### Andi GUY, UMICRO #### [facility] [address] [address] [address] Les Bryan Glucose [Mass/Vol] 110 mg/dL Critically high 74-106 [facility] Comment on above: Performed By: #### E LOKESHR, UMICRO #### [facility] [address] [address] [address] Les Bryan Potassium [Moles/Vol] 4.1 mmol/L Normal 3.5-5.1 [facility] Comment on above: Performed By: #### E LOKESHR, UMICRO #### [facility] [address] [address] [address] Les Bryan Protein [Mass/Vol] 7.9 g/dL Normal 6.4-8.2 [facility] Comment on above: Performed By: #### Andi GUY UMICRO #### [facility] [address] [place] [address] Dr. Les Bryan Sodium [Moles/Vol] 137 mmol/L Normal 136-145 [facility] Comment on above: Performed By: #### Andi GUY UMICRO #### [facility] [address] [place] [address] Dr. Les Bryan Urea nitrogen [Mass/Vol] 9.0 mg/dL Normal 7.0-18.0 [facility] Comment on above: Performed By: #### SABINE STEVENSONICRO #### [facility] [address] [place] [address] Dr. Les Bryan Urea nitrogen/Creatinine [Mass ratio] 12.9 mg/mg Normal [facility] Comment on above: Performed By: #### BARBER STEVENSONRO #### [facility] [address] [place] [address] Dr. Les Bryan TSHon 04-05-2022 TSH 3.572 uIU/mL Normal 0.358-3.740 [facility] Comment on above: Performed By: #### BARBER STEVENSONRO #### [facility] [address] [place] [address] Dr. Les Bryan TSH RANGE SEE BELOW Normal [facility] Comment on above: Result Comment: <0.3 4 UIU/ml HYPERTHYROID 0.34-5.60 UIU/ml EUTHYROID >5.60 UIU/ml HYPOTHYROID Performed By: #### Andi GUY UMICRO #### [facility] [address] [place] [address] Dr. Les Bryan XR KUB 1 VIEWon [...] AMANDA CASSIDY Date: 2022-02-27 15:05 Normal [facility] AMYLASEon 02-25-2022 Amylase [Catalytic activity/Vol] 34 U/L Normal 25-115 [facility] Comment on above: Performed By: #### [id number] #### [facility] [address] [place] [address] Dr. Les Bryan CBC AUTO DIFFon 02-25-2022 BASO # 0.0 103/ul Normal 0.0-0.1 [facility] Comment on above: Performed By: #### C BC #### [facility] [address] [place] [address] Dr. Les Bryan Basophils/100 WBC (Bld) 0.4 % Normal 0.2-2.0 [facility] Comment on above: Performed By: #### C BC #### [facility] [address] [place] [address] Dr. Les Bryan EO # 0.3 103/ul Normal 0.0-0.7 [facility] Comment on above: Performed By: #### C BC #### [facility] [address] [place] [address] Dr. Les Bryan Eosinophils/100 WBC (Bld) 3.6 % Normal 0.9-7.0 [facility] Comment on above: Performed By: #### C BC #### [facility] [address] [place] [address] Dr. Les Bryan Erythrocyte distribution width (RBC) [Ratio] 13.1 % Normal 11.0-15.0 [facility] Comment on above: Performed By: #### C BC #### [facility] [address] [place] [address] Dr. Les Bryan Hematocrit (Bld) [Volume fraction] 40.6 % Normal 36.0-48.0 [facility] Comment on above: Performed By: #### C BC #### [facility] [address] [address] [address] Les Bryan Hemoglobin (Bld) [Mass/Vol] 13.3 g/dL Normal 12.0-16.0 [facility] Comment on above: Performed By: #### C BC #### [facility] [address] [address] [address] Les Bryan IG # 0.06 10e3/ul Critically high 0.00-0.03 [facility] Comment on above: Performed By: #### C BC #### [facility] [address] [address] [address] Les Bryan IG % 0.6 % Critically high 0.0-0.5 [facility] Comment on above: Performed By: #### C BC #### [facility] [address] [place] [address] Dr. Les Bryan LYMPH # 3.6 103/ul Normal 1.2-3.8 [facility] Comment on above: Performed By: #### C BC #### [facility] [address] [place] [address] Dr. Les Bryan Lymphocytes/100 WBC (Bld) 38.2 % Normal 20.5-60.0 [facility] Comment on above: Performed By: #### C BC #### [facility] [address] [place] [address] Dr. Les Bryan MANUAL DIFF REQ NO Normal [facility] Comment on above: Performed By: #### C BC #### [facility] [address] [place] [address] Dr. Les Bryan MCH (RBC) [Entitic mass] 29.7 pg Normal 26.7-34.0 [facility] Comment on above: Performed By: #### C BC #### [facility] [address] [place] [address] Dr. Les Bryan MCHC (RBC) [Mass/Vol] 32.8 g/dL Normal 29.9-35.2 [facility] Comment on above: Performed By: #### C BC #### [facility] [address] [id number] [address] Les Bryan MCV (RBC) [Entitic vol] 90.6 fL Normal 81.0-99.0 [facility] Comment on above: Performed By: #### C BC #### [facility] [address] [address] [address] Les Bryan MONO # 0.5 103/ul Normal 0.3-0.8 [facility] Comment on above: Performed By: #### C BC #### [facility] [address] [place] [address] Dr. Les Bryan Monocytes/100 WBC (Bld) 5.4 % Normal 1.7-12.0 [facility] Comment on above: Performed By: #### C BC #### [facility] [address] [place] [address] Dr. Les Bryan NEUT # 4.9 103/ul Normal 1.4-6.5 [facility] Comment on above: Performed By: #### C BC #### [facility] [address] [place] [address] Dr. Les Bryan Neutrophils/100 WBC (Bld) 51.8 % Normal 43.0-75.0 [facility] Comment on above: Performed By: #### C BC #### [facility] [address] [place] [address] Dr. Les Bryan Platelet mean volume (Bld) [Entitic vol] 9.2 fL Critically low 9.5-13.5 [facility] Comment on above: Performed By: #### C BC #### [facility] [address] [place] [address] Dr. Les Bryan PLT 335 103/ul Normal 150-450 [facility] Comment on above: Performed By: #### C BC #### [facility] [address] [place] [address] Dr. Les Bryan RBC 4.48 106/ul Normal 4.20-5.40 [facility] Comment on above: Performed By: #### C BC #### [facility] [address] [place] [address] Dr. Les Bryan WBC 9.4 103/ul Normal 4.0-11.0 [facility] Comment on above: Performed By: #### C #### [facility] [id number] [address] Les Bryan CT ABD/PELVIS WO CONon [...] by: IWONA BRITT Date: 2022-02-25 19:05 Normal [facility] ER URINE PROFILEon 2 Bilirubin Ql (U) Negative Normal NEGATIVE [facility] Comment on above: Performed By: #### Andi GUY UMICRO #### [facility] [address] [place] [address] Dr. Les Bryan Clarity (U) CLEAR Normal CLEAR [facility] Comment on above: Performed By: #### Andi GUY UMICRO #### [facility] [address] [place] [address] Dr. Les Bryan Color (U) YELLOW Normal YELLOW [facility] Comment on above: Performed By: #### Andi GUY UMICRO #### [facility] [address] [place] [address] Dr. Les MOY A micrscopic examination will be performed if indicated. Normal [facility] Comment on above: Performed By: #### Andi GUY UMICRO #### [facility] [address] [place] [address] Dr. Les Bryan Glucose Ql (U) Negative Normal NEGATIVE [facility] Comment on above: Performed By: #### Andi GUY UMICRO #### [facility] [address] [place] [address] Dr. Les Bryan Hemoglobin Ql (U) LARGE Abnormal NEGATIVE [facility] Comment on above: Performed By: #### Andi GUY UMICRO #### [facility] [address] [place] [address] Dr. Les Bryan Ketones Ql (U) Negative Normal NEGATIVE [facility] Comment on above: Performed By: #### Andi GUY UMICRO #### [facility] [address] [place] [address] Dr. Les Bryan LEUKOCYTES TRACE Abnormal NEGATIVE [facility] Comment on above: Performed By: #### Andi GUY UMICRO #### [facility] [address] [place] [address] Dr. Les Bryan Nitrite Ql (U) Negative Normal NEGATIVE [facility] Comment on above: Performed By: #### Andi GUY UMICRO #### [facility] [address] [place] [address] Dr. Les Bryan pH (U) 7.0 [pH] Normal 5-9 [facility] Comment on above: Performed By: #### RICARDO STEVENSON #### [facility] [address] [place] [address] Dr. Les Bryan Protein (U) [Mass/Vol] 30 mg/dL Abnormal NEGATIVE/ TRACE [facility] Comment on above: Performed By: #### RICARDO STEVENSON #### [facility] [address] [place] [address] Dr. Les Bryan SPEC GRAVITY 1.025 Normal 1.005-<=1.025 [facility] Comment on above: Performed By: #### RICARDO STEVENSON #### [facility] [address] [place] [address] Dr. Les Bryan UR MICRO IND INDICATED Normal [facility] Comment on above: Performed By: #### RICARDO STEVENSON #### [facility] [address] [place] [address] Dr. Les Bryan Urobilinogen Qn (U) 0.2 {Racquel'U}/dL Normal 0.2 - 1. 0 [facility] Comment on above: Performed By: #### RICARDO STEVENSON #### [facility] [address] [place] [address] Dr. Les Bryan LIPASEon 02-25-2022 Lipase [Catalytic activity/Vol] 82.0 U/L Normal 73.0-393.0 [facility] Comment on above: Performed By: #### 4 [id number] #### [facility] [address] [place] [address] Dr. eLs Bryan PROF 14(COMP METB)on 022 Albumin [Mass/Vol] 3.7 g/dL Normal 3.4-5.0 [facility] Comment on above: Performed By: #### 4 [id number] #### [facility] [address] [place] [address] Dr. Les Bryan Albumin/Globulin [Mass ratio] 0.9 {ratio} Normal [facility] Comment on above: Performed By: #### 4 [id number] #### [facility] [address] [address] [address] Les Bryan ALP [Catalytic activity/Vol] 129 U/L Critically high 46-116 [facility] Comment on above: Performed By: #### 4 [id number] #### [facility] [address] [address] [address] Les Bryan ALT [Catalytic activity/Vol] 86 U/L Critically high 14-59 [facility] Comment on above: Performed By: #### 4 [id number] #### [facility] [address] [address] [address] Les Bryan Anion gap [Moles/Vol] 15.3 mmol/L Normal [facility] Comment on above: Performed By: #### 4 [id number] #### [facility] [address] [address] [address] Les Bryan AST [Catalytic activity/Vol] 51 U/L Critically high 15-37 [facility] Comment on above: Performed By: #### 4 [id number] #### [facility] [address] [address] [address] Les Bryan Bilirubin [Mass/Vol] 0.2 mg/dL Normal 0.2-1.0 [facility] Comment on above: Performed By: #### 4 [id number] #### [facility] [address] [address] [address] Les Bryan Calcium [Mass/Vol] 8.4 mg/dL Critically low 8.5-10.1 [facility] Comment on above: Performed By: #### 4 [id number] #### [facility] [address] [address] [address] Les Bryan Chloride [Moles/Vol] 103 mmol/L Normal 98-107 [facility] Comment on above: Performed By: #### 4 [id number] #### [facility] [address] [address] [address] Les Bryan CO2 [Moles/Vol] 26.2 mmol/L Normal 21.0-32.0 [facility] Comment on above: Performed By: #### 4 [id number] #### [facility] [address] [address] [address] Les Bryan Creatinine [Mass/Vol] 0.72 mg/dL Normal 0.55-1.02 [facility] Comment on above: Performed By: #### [id number] #### [facility] [address] [address] [address] Les Bryan EGFR-AF ANGUILLAN >60 Normal >=60 [facility] Comment on above: Performed By: #### [id number] #### [facility] [address] [address] [address] Les Bryan EGFR-NON AF ANGUILLAN >60 Normal >=60 [facility] Comment on above: Performed By: #### [id number] #### [facility] [address] [place] [address] Dr. Les Bryan Globulin (S) [Mass/Vol] 4.2 g/dL Normal [facility] Comment on above: Performed By: #### [id number] #### [facility] [address] [address] [address] Les Bryan Glucose [Mass/Vol] 121 mg/dL Critically high 74-106 [facility] Comment on above: Performed By: #### [id number] #### [facility] [address] [address] [address] Les Bryan Potassium [Moles/Vol] 3.5 mmol/L Normal 3.5-5.1 [facility] Comment on above: Performed By: #### [id number] #### [facility] [address] [address] [address] Les Bryan Protein [Mass/Vol] 7.9 g/dL Normal 6.1-8.2 [facility] Comment on above: Performed By: #### [id number] #### [facility] [address] [address] [address] Les Bryan Sodium [Moles/Vol] 141 mmol/L Normal 136-145 [facility] Comment on above: Performed By: #### [id number] #### [facility] [address] [place] [address] Dr. Les Bryan Urea nitrogen [Mass/Vol] 14.0 mg/dL Normal 7.0-18.0 [facility] Comment on above: Performed By: #### [id number] #### [facility] [address] [place] [address] Dr. Les Bryan Urea nitrogen/Creatinine [Mass ratio] 19.4 mg/mg Normal [facility] Comment on above: Performed By: #### [id number] #### [facility] [address] [place] [address] Dr. Les Bryan URINE MICROSCOPIC ONLYon BACTERIA TRACE Abnormal NONE SEEN [facility] Comment on above: Performed By: #### Andi GUY, UMICRO #### [facility] [address] [place] [address] Dr. Les Bryan Bacteria identified Cx Nom (U) NOT INDICATED Normal [facility] Comment on above: Performed By: #### Andi GUY, UMICRO #### [facility] [address] [place] [address] Dr. Les Bryan CAST NONE SEEN Normal NONE SEEN [facility] Comment on above: Performed By: #### E BROOKS, UMICRO #### [facility] [address] [place] [address] Dr. Les Bryan Crystals LM Nom (Urine sed) NONE SEEN Normal NONE SEEN [facility] Comment on above: Performed By: #### E RUR, UMICRO #### [facility] [address] [place] [address] Dr. Les Bryan Epithelial cells LM Ql (Urine sed) MODERATE Abnormal NONE SEEN /RARE [facility] Comment on above: Performed By: #### Andi RUR, UMICRO #### [facility] [address] [place] [address] Dr. Les Bryan MUCOUS NONE SEEN Normal NONE SEEN [facility] Comment on above: Performed By: #### E BROOKS, UMICRO #### [facility] [address] [address] [address] Les Bryan RBC 20-50 Abnormal 0-2 [facility] Comment on above: Result Comment: cren ated RBCs Performed By: #### RICARDO STEVENSON #### [facility] [address] [place], [place] [address] Dr. Les Bryan WBC 2-5 Abnormal NONE SEEN [facility] Comment on above: Performed By: #### RICARDO STEVENSON #### [facility] [address] [address] [address] Les Bryan Vital Signs Date Time Vital Sign Value Performing Clinician Facility 12-02-2024 14:40-0500 Blood Pressure Location [facility] 12-02-2024 14:40-0500 Diastolic blood pressure 106 mm[Hg] [facility] 12-02-2024 14:40-0500 Heart rate 72 /min [facility] 12-02-2024 14:40-0500 Respiratory rate 16 /min [facility] 12-02-2024 14:40-0500 Systolic blood pressure 142 mm[Hg] [facility] [place] 09-13-2023 10:30-0500 Body height 162.56 cm Shae Silvestreler Other [facility] Other 09-13-2023 10:30-0500 Body mass index (BMI) [Ratio] 23.14 kg/m2 Shae Love Other [facility] Other 09-13-2023 10:30-0500 Body temperature 98.4 [degF] Shae Love Other [facility] Other 09-13-2023 10:30-0500 Body weight 61.15 kg Shae Love Other [facility] Other 09-13-2023 10:30-0500 Respiratory rate 18 /min Shae Love Other [facility] Other 09-13-2023 10:30-0500 SaO2% (BldA) [Mass fraction] 99 % Shae Love Other [facility] Other 04-21-2022 09:07-0400 Blood Pressure Location Jl YULIANAL [facility] [place] 04-21-2022 09:07-0400 Diastolic blood pressure 86 mm[Hg] Jl NILL [facility] [place] 04-21-2022 09:07-0400 Heart rate 92 /min Jl NILL [facility] [place] 04-21-2022 09:07-0400 Respiratory rate 16 /min Jl NILL [facility] [place] 04-21-2022 09:07-0400 Systolic blood pressure 127 mm[Hg] Jl NILL [facility] [place] Encounters Encounter Date Encounter Type Care Provider Facility Start: 01-12-2025 End: 01-12-2025 ambulatory Corky Ta DPM Facility:[facility] Start: 12-02-2024 End: 12-02-2024 ambulatory Jl FREDERICK [facility] Start: 12-02-2024 End: 12-02-2024 Patient encounter procedure Jl FREDERICK [facility] [place] Start: 06-12-2024 End: 06-12-2024 Emergency department patient visit [facility] Start: 09-13-2023 Office outpatient ne w 20 minutes Shae Love [facility] Start: 09-13-2023 End: 09-13-2023 ambulatory Shae Love [facility] Other Start: 09-13-2023 End: 09-13-2023 Patient encounter procedure JAVA WEB ARCHITECT Shae Love Work Phone: [facility] Work Phone: [...] End: 04-21-2022 Patient encounter procedure Jl FREDERICK [facility] [place] Start: 04-20-[address] ANGELICA DE Facility :[facility] Start: 04-17-2022 End: 04-18-[address] ANGELICA DE Facility:[facility] Start: 04-05-2022 End: 04-06-[address] ANGELICA DE Facility:[facility] Start: 02-27-2022 End: 02-28-[address] ANGELICA DE Facility:[facility] Start: 02-25-2022 End: 02-25-2022 ambulatory EMILY MCDERMOTT Facility:[facility] Procedures Date Procedure Procedure Detail Performing Clinician Start: 09-13-2023 Radiologic examinati on of knee JAVA WEB ARCHITECT Shae Love Work Phone: Start: 05-03-2022 Excision of dermatofibroma Jl BRIDGESHerbert Comment on above: left ankle Start: 07-08-2015 laparoscopic cholecy stectomy with intraoperative cholangiogram Jl YULIANAHerbert Abdominal hysterectomy Sebastian BRIDGESHerbert Bilateral complete salpingectomy Jl BRIDGESHerbert Diagnostic laparoscopy Sebastian FREDERICK Loop electrosurgical excision procedure Jl BRIDGESHerbert Payers Date Payer Category Payer Unknown 2024 Unknown [id number] 1980 Unknown [id number] 2.16.84 [id number] 1979 Unknown [id number] 2.16.84 [id number] 1979 Unknown [id number] 2.16.84 [id number] 1979 Unknown [id number] 2.16.84 [id number] 1979 Unknown [id number] 2.16.84 [id number] 1979 Unknown [id number] 2.16.84 [id number] 1979 Unknown [id number] 2.16.84 [id number] 1979 Unknown [id number] 2.16.84 [id number] 1979 Unknown [id number] 2.16.84 [id number] 1979 Unknown [id number] 2.16.8 [id number] 1979 Unknown [id number] 2.16.8 [id number] 1979 Unknown [id number] 2.16. [id number] 1959 Self-pay 1960 Unknown [id number] Unknown [id number] 2.16.8 [id number] Social History Date Type Detail Facility Start: 04-21-2022 Tobacco smoking status Ex-smoker (fi nding) [facility] Tobacco smoking status Never [facility] Sex Assigned At Female [facility] Start: 1980 Sex Assigned At Female [facility] Start: 12-02-2024 Tobacco smoking status Heavy t obacco smoker (finding) [facility] Functional Status Date Assessment Result Facility 12-02-2024 Functional Status N/A [facility] 04-21-2022 Functional Status N/A [facility] Clinical Note 12-02-2024 Note Date & [...] Mother. Primary malignant neoplasm of bladder: Father. [facility] Comment on above: Result Comment: Elec [...] understanding and is agreeable to treatment plan [facility] Other Evaluation + Plan note Note Date & Type Note Facility Evaluation + Plan note Future Appointments Appointment Date:05/03/2022 03:00:00 PM Scheduled Provider:Jl FREDERICK MD Location[facility] Appointment Type:GS Procedure 30 [facility] [place] Evaluation + Plan note Note Date & Type Note Facility Evaluation + Plan note Future Appointments Appointment Date:05/12/2022 03:40:00 PM Scheduled Provider:Jl FREDERICK MD Location:[facility] Appointment Type:GS Post Op 15 [facility] [place] Evaluation note Note Date & Type Note Facility Evaluation note No assessment information availa ble [facility] Work Phone: History general Narrative - Reported Note Date & Type Note Facility History general Narrative - Reported Type Medical History Anxiety disorder Medical History chronic depression Medical History thyriod Surgical History LEAP [facility] Other Hospital course Narrative Note Date & Type Note Facility Hospital course Narrative No data available for this section [facility] [place] Hospital Discharge instructions Note Date & Type Note Facility Hospital Discharge instructions No data available for this section [facility] [place] Progress note Note Date & Type Note Facility Progress note No data available for this section [facility] [place] Summary Purpose Family History No Family History [...] and content) DATE CREATED AUTHOR 10/20/2022 [facility] DATE CREATED AUTHOR AUTHOR'S ORGANIZ ATION 12/07/2023 [facility] DATE CREATED AUTHOR AUTHOR'S ORGANIZ ATION 06/15/2024 [facility] DATE CREATED AUTHOR AUTHOR'S ORGANIZ ATION 12/04/2024 [facility] DATE CREATED AUTHOR AUTHOR'S ORGANIZ ATION 01/25/2025 [facility] REASON FOR VISIT (unrecogniz ed section [...] BE BASED ON THE PRIMARY CLINICAL RECORDS. [facility] [employer] [facility]. provides no warranty or guarantee of the accuracy or completeness of information in this document.
[2025-08-11 10:29] LABS: Cholesterol 232 mg/dL (<=200); HDL Cholesterol 35 mg/dL (40-60); Triglycerides 417 mg/dL (<=150); VLDL CHOLESTEROL 83.4 mg/dL
== END 2025-08-11 09:24 | disposition home or self-care (01) ==
PROVIDERS: PCP Family Medicine; Visit Provider Family Medicine
DX: E78.5 Hyperlipidemia, unspecified (principal); R73.09 Other abnormal glucose
CPT/HCPCS: 36415; 80061; 83036; 83721

== ENCOUNTER 2025-09-04 22:55 | Emergency (ER) | payer BC, SELFPAY ==
[2025-09-04 23:07] VITALS: BP 142/97; PULSE 84; TEMP 36.9; O2SAT 98; BMI 26.4
--- NOTE | 2025-09-04 23:23 | ED_ITS ---
HPI - Extremity Problem General Chief complaint: Extremity Problem, Nontraumatic Stated complaint: SEVERE PAIN IN LEFT KNEE DOWN TO FOOT Time Seen by Provider: 09/04/25 23:14 Source: patient Mode of arrival: walk-in Limitations: no limitations History of Present Illness HPI Narrative: presents complaining of left knee pain that started today. No recent injury. Did injure 2 years ago but has been doing well until today. Applied ice tonight and it did not help. states from her knee down feels warm Related Data Home Medications ?Medication ?Instructions ?Recorded ?Confirmed alprazolam 0.5 mg tablet mg 09/05/25 desvenlafaxine succinate 100 mg mg PO 09/05/25 tablet,extended release 24 hr hydroxyzine pamoate 25 mg capsule mg 09/05/25 levothyroxine 75 mcg tablet mcg 09/05/25 liothyronine 5 mcg tablet mcg 09/05/25 quetiapine 100 mg tablet mg 09/05/25 simvastatin 20 mg tablet mg 09/05/25 sumatriptan succinate 100 mg tablet mg PO 09/05/25 valacyclovir 500 mg tablet mg 09/05/25 Previous Rx's ?Medication ?Instructions ?Recorded cephalexin 500 mg capsule 500 mg PO QID 7 days #28 cap s 12/27/24 Allergies Allergy/AdvReac Type Severity Reaction Status Date / Time Latex, Natural Rubber Allergy Hives Verified 09/04/25 23:04 sulfamethoxazole (From Allergy Hives Verified 09/04/25 23:04 Bactrim) trimethoprim (From Bactrim) Allergy Hives Verified 09/04/25 23:04 Review of Systems ROS Status of ROS 10 or more systems reviewed and unremark able except as noted in history and below PFSH PFSH Social History Little interest or pleasure in doing things: not at all Feeling down, depressed, or hopeless: not at all Exam Constitutional Vital Signs, click to edit/add: Last Vital Signs Temp 98.4 F 09/04/25 23:07 Pulse 78 09/05/25 00:10 Resp 17 09/05/25 00:10 BP 127/79 09/05/25 01:00 Pulse Ox 98 09/05/25 01:00 O2 Del Method Room Air 09/04/25 23:07 Common normals: no apparent distress, average body habitus, oriented x3, no limitations, healthy appearing, alert and well nourished [facility] Common normals: normocephalic and head/scalp atraumatic Eye Common normals: EOMs intact bilaterally and conjunctivae normal Respiratory Common normals: normal respiratory effort, no retractions, no use of accessory muscles and clear to auscultation bilaterally Cardio Common normals: regular rate, regular rhythm, S1 normal heart sound and S2 normal heart sound Extremity Other: neg swelling or warmth of the knee. medial knee tenderness decreased ROM of the knee due to morales. no erythema Neuro Common normals: oriented x3, CN's II-XII intact bilaterally, moves all extremities and no focal motor deficits Course Vital Signs Vital signs: Vital Signs Temperature 98.4 F 09/04/25 23:07 Pulse Rate 84 09/04/25 23:07 Respiratory Rate 19 09/04/25 23:07 Blood Pressure 142/97 H 09/04/25 23:07 Pulse Oximetry 98 09/04/25 23:07 Oxygen Delivery Method Room Air 09/04/25 23:07 Temperature 98.4 F 09/04/25 23:07 Pulse Rate 78 09/05/25 00:10 Respiratory Rate 17 09/05/25 00:10 Blood Pressure 127/79 09/05/25 01:00 Pulse Oximetry 98 09/05/25 01:00 Oxygen Delivery Method Room Air 09/04/25 23:07 MDM - Extremity (Nontraumatic) MDM Narrative Medical decision making narrative: presents with left knee nontraumatic pain . Inspection of the knee is unremarkable. Does have tenderness and decreased ROM due to morales. CRP is normal. Afebrile. xray neg. No improvement after Toradol and solumedrol. Provided a knee brace and discharged home to follow up with ortho Lab Data Labs: Lab Results 09/04/25 Range/Units 23:45 WBC 12.3 H (4.0-11.0) 10^3/uL RBC 4.56 (4.20-5.40) 10^6/uL Hgb 14.0 (12.0-16.0) g/dL Hct 40.5 (36.0-48.0) % MCV 88.8 (81.0-99.0) fL MCH 30.7 (26.7-34.0) pg MCHC 34.6 (29.9-35.2) g/dL RDW 12.7 (11.0-15.0) % Plt Count 306 (150-450) 10^3/uL MPV 9.2 L (9.5-13.5) fL Seg Neuts % (Manual) 53.0 (43.0-75.0) Lymphocytes % (Manual) 40.0 (20.5-60.0) % Monocytes % (Manual) 5.0 (1.7-12.0) % Eosinophils % (Manual) 2.0 (0.9-7.0) % Basophils % (Manual) 0.0 L (0.2-2.0) % Neutrophils # (Manual) 6.51 H (1.4-6.5) 10^3/uL Lymphocytes # (Manual) 4.92 H (1.20-3.80) 10^3/uL Monocytes # (Manual) 0.61 (0.30-0.80) 10^3/uL Eosinophils # (Manual) 0.24 (0.00-0.70) 10^3/uL Basophils # (Manual) 0.00 (0.00-0.10) 10^3/uL ESR 19 (<=20) mm/hr Sodium 142 (136-145) mmol/L Potassium 3.5 (3.5-5.1) mmol/L Chloride 105 (98-107) mmol/L Carbon Dioxide 26.2 (21.0-32.0) mmol/L Anion Gap 14.3 BUN 7.0 (7.0-18.0) mg/dL Creatinine 0.77 (0.55-1.02) mg/dL Est GFR ( Amer) >60 (>=60 mL/min/1.73m^2) Est GFR (Non-Af Amer) >60 (>=60 mL/min/1.73m^2) BUN/Creatinine Ratio 9.1 Glucose 148 H (74-106) mg/dL Calcium 9.0 (8.5-10.1) mg/dL C-Reactive Protein <0.50 (<=0.50) mg/dL Discharge Plan Discharge Chief Complaint: Extremity Problem, Nontraumatic Clinical Impression: Arthralgia of knee, left Patient Disposition: Home, Self-Care Prescriptions / Home Meds: No Action cephalexin 500 mg capsule 500 mg PO QID 7 Days Qty: 28 0RF sumatriptan succinate 100 mg tablet PO valacyclovir 500 mg tablet liothyronine 5 mcg tablet quetiapine 100 mg tablet levothyroxine 75 mcg tablet alprazolam 0.5 mg tablet simvastatin 20 mg tablet hydroxyzine pamoate 25 mg capsule desvenlafaxine succinate 100 mg tablet extended release 24 hr PO Print Language: Hungarian Instructions: Knee Pain (ED) Additional Instructions: follow up with ortho Referrals: Napoleon De MD [Primary Care Provider, Family Practice] - 1 week
--- OUTSIDE RECORDS SUMMARY | 2025-09-04 23:38 | XMS_ITS | CCD ---
Author Organization [facility] CliniSyor Care Team Providers Care Computer Technology Instructor Name Role Phone Angelica Veronica Primary Care Physician DR ANGELICA VERONICA Primary Care Unavailable BEA FARMER Consulting Unavailable [...] Ta DPM Attending Unava ilable Allergies Allergy ClassificationReported Allergen(s)Allergy TypeDate of OnsetReaction(s) Facility (7 sources)Latex; Translations: [Latex]Drug cywdbqu46-98-3112Hlfypcvs of skin (disorder), [facility] [place] (6 sources)Sulfamethoxazole / Trimethoprim; Translations: [sulfamethoxazole-trimethoprim]Drug AllergyWeal (disorder), [facility] (2 sources)natural latex rubberDrug allergy (disorder)[facility] Repository (2 sources)Sulfamethoxazole / TrimethoprimDrug AllergyThe [facility] (1 source)SulfamethoxazoleDrug Ihzuzbh61-56-4780QtqgxpejuSub[facility] (1 source)TrimethoprimDrug Psvlcqo94-69-0729HxnajguybSuburban Community [facility] Medications Current Medications MedicationDrug Class(es)DatesSig (Normalized)Sig (Original)24 hr desvenlafaxine succinate 100 mg extended release oral tablet (5 sources)Serotonin and Norepinephrine Reuptake InhibitorStart: 60-22-5554nswn 1 tablet by mouth once dailydesvenlafaxine 100 mg Tab- 100 mg = 1 tab(s), Oral, Daily, Refills(s) 0 Start Date: 04/14/22 Status:OrderedStart: 54-47-7660dwgl 1 tablet by mouth once dailydesvenlafaxine 100 mg Tab- 100 mg = 1 tab(s), Oral, Daily, Refills(s) 0 Start Date: 04/14/22 Status:OrderedDesvenlafaxine ER 100mg Activediclofenac sodium 75 mg delayed release oral tablet (4 sources)Nonsteroidal Anti-inflammatory DrugStart: 27-74-0406soyf 1 tablet by mouth twice dailydiclofenac sodium 75 mg Oral EC Tab 75 mg = 1 tab(s), Oral, BID, Refills(s) 0 Start Date: 04/14/22 Status: OrderedhydrOXYzine pamoate 25 mg oral capsule (5 sources)AntihistamineStart: 14-23-8171auji 1 capsule by mouth four times daily as needed for anxietyhydrOXYzine pamoate 25 mg Cap 25 mg = 1 cap(s), Oral, QID, PRN as needed for anxiety, Refills(s) 0 Start Date: 04/14/22 Status: OrderedVistaril prn, takes at least QD Activelevothyroxine sodium 0.075 mg oral tablet (2 sources)l-ThyroxineStart: 62-88-5111lbeb 1 tablet by mouth once daily levothyroxine 75 mcg (0.075 mg) Tab 75 mcg = 1 tab(s), Oral, Daily, Refills(s) 0 Start Date: 11/28/24 Status: OrderedLevothyroxine Sodium Not-Taking methylPREDNISolone 4 mg oral tablet (1 source)CorticosteroidStart: 43-92-6438pnuijxOSVJSNPxfepd 4 MG as directed Orally for daily dose take half with breakfast, half with dinner for 6 days Aug, Activepantoprazole 40 mg delayed release oral tablet (5 sources)Proton Pump InhibitorStart: 12-83-8358epoo 1 tablet by mouth once dailyProtonix 40 mg Tab-DR 40 mg = 1 tab(s), Oral, Daily, Refills(s) 0 Start Date: 04/14/22 Status: OrderedQUEtiapine 100 mg oral tablet (5 sources)Atypical AntipsychoticStart: 24-34-4538drxu 1 tablet by mouth at bedtimequetiapine 100 mg Tab 100 mg = 1 tab(s), Oral, Bedtime, Refills(s) 0 Start Date: 11/28/24 Status: OrderedStart: 46-47-6433cgoe 1 tablet by mouth once dailySEROquel 25 mg Tab 25 mg = 1 tab(s), Oral, Daily, Refills(s) 0 Start Date: 04/14/22 Status: Orderedtake 1 tablet by mouth every twenty-four hoursSEROquel 100 MG 1 tablet at bedtime Orally Once a day ActivevalACYclovir 500 mg oral tablet (5 sources)Herpesvirus Nucleoside Analog DNA Polymerase Inhibitor, Herpes Simplex Virus Nucleoside Analog DNA Polymerase Inhibitor, Herpes Zoster Virus Nucleoside Analog DNA Polymerase InhibitorStart: 13-75-1742whct 1 tablet by mouth once dailyvalacyclovir 500 mg Tab 500 mg = 1 tab(s), Oral, Daily, Refills(s) 0 Start Date: 04/14/22 Status: OrderedvalACYclovir HCl Active Completed/Discontinued Medications MedicationDrug Class(es)DatesSig (Normalized)Sig (Original)Preble-Linyah (1 source)Preble-Linyah Not-Taking Problems Active Problems Problem ClassificationProblemDateDocumented DateEpisodic/ChronicAnxiety disorders (9 sources)Anxiety; Translations: [Anxiety disorder, unspecified]Onset: 841697-30-5645JjwddagLucpimsx of urinary tract (10 sources)History of calculus of kidney; Translations: [Calculus of kidney] Onset: 735209-04-7350ChuieobcFysifypnqq heart failure; nonhypertensive (1 source)Unspecified diastolic (congestive) heart failure; Translations: [UNSPECIFIED DIASTOLIC HEART FAILURE]Onset: 85-81-3560DimdnzfOhbpqkdiwkcou (4 sources)Endometriosis (clinical)24-48-3535HpvaiknYhuyzmxnn hypertension (4 sources)Hypertensive phiuwyan58-52-6962SzenoopGeafaxdq; including migraine (4 sources)Msjulvlk57-56-6005TxsfmnnZkfgdjoicdjf with complications and secondary hypertension (1 source)Hypertensive heart disease with heart failure; Translations: [HTN HEART DISEASE W/HEART FAIL]Onset: 56-05-9073ZmerqrcOshsfoldo of unspecified nature or uncertain behavior (5 sources)Neoplasm of uncertain behavior of skin; Translations: [Neoplasm of uncertain behavior of skin]Onset: 62-48-2379UynuvhvyPjubv and unspecified benign neoplasm (3 sources)Benign neoplasm of skin of lower limb; Translations: [Other benign neoplasm of skin of unspecified lower limb, including hip]Onset: 05-12-2022 EpisodicOther gastrointestinal disorders (4 sources)History of nndaazitw53-20-8221JdyclnieObhsp inflammatory condition of skin (4 sources)Qodsqivgy22-63-9721VjzepmkShdta injuries and conditions due to external causes (1 source)Injury, unspecified, initial encounterEpisodicOther non-traumatic joint disorders (1 source)Effusion, left kneeEpisodicOther nutritional; endocrine; and metabolic disorders (3 sources)Body mass index 25-29 - qgskhbjoum64-21-2939DqnvpyjeYwsgj nutritional; endocrine; and metabolic disorders (1 source)Fkuxqxnuyk50-57-8771ZplgqfpsDxhqx nutritional; endocrine; and metabolic disorders (1 source)Overweight in adulthood with body mass index of 25 or more but less than 6352-50-6771TdtkvczyZdlhc screening for suspected conditions (not mental disorders or infectious disease) (6 sources)Encounter for screening mammogram for malignant neoplasm of breast; Translations: [Encounter for screening for malignant neoplasm of cervix]Onset: 54-26-2098VfftgtihUdwen skin disorders (4 sources)Localized swelling, mass and lump, trunk; Translations: [LOCALIZD SWELLING MASS AND LUMP TRUNK]Onset: 81-04-1396UmscmbdhTbrsq skin disorders (1 source)Mass of subcutaneous tissue of left lower limb; Translations: [Localized swelling, mass and lump, left lower limb]Onset: 90-00-2256Ozreoryk Other skin disorders (1 source)Nodule of subcutaneous tissue of left lower dojz20-52-6048Xfifzksk Pneumonia (except that caused by tuberculosis or sexually transmitted disease) (4 sources)Pneumonia, unspecified organism; Translations: [PNEUMONIA UNSPECIFIED ORGANISM]Onset: 70-66-1162ZvhkfgroUzguptwc codes; unclassified (1 source)Family history of malignant neoplasm of bladder; Translations: [FAM HX MALIGNANT NEOPLASM BLADDER]Onset: 12-34-2112CmuxbvwmYxlfwwjj codes; unclassified (1 source)Family history of malignant neoplasm of breast; Translations: [FAMILY HX MALIG NEOPLASM OF BREAST]Onset: 12-79-9633SufkxexeRotfkleo codes; unclassified (1 source)Contact with and (suspected) exposure to other hazardous, chiefly nonmedicinal, chemicals; Translations: [Contact with and (suspected) exposure to other hazardous, chiefly nonmedicinal, chemicals]Onset: 26-79-9468Hgtakxtw Residual codes; unclassified (1 source)Tobacco zzvz73-81-5810JbrtnwrbXjfyvxo disorders (4 sources)Eoaixkvxamimth56-51-4280NbjmxsqErvodrqljfvf (1 source)CONTACT W/AND (SUSP) EXPOS COVID-19; Translations: [CONTACT W/AND (SUSP) EXPOS COVID-19]Onset: 81-02-8784Gshkhhyzsxzq (1 source)Effusion, left knee; Translations: [Effusion, left knee]Onset: 09-13-2023 Past or Other Problems Problem ClassificationProblemDateDocumented DateEpisodic/ChronicAbdominal pain (3 sources)Unspecified abdominal pain; Translations: [UNSPECIFIED ABDOMINAL PAIN]Onset: 54-82-6707OrjqcqcpRfthvhzvgt and other anemia (1 source)Anemia, unspecified; Translations: [ANEMIA UNSPECIFIED]Onset: 01-67-8168FthwchciFqjqspmw mellitus without complication (1 source)Other abnormal glucose; Translations: [OTHER ABNORMAL GLUCOSE]Onset: 53-68-4114RzybhflpLythlhfbbqdve symptoms and ill-defined conditions (1 source)Hematuria, unspecified; Translations: [HEMATURIA UNSPECIFIED]Onset: 00-07-6928EiplnkclDogvpmcsgzydz and screening for infectious disease (1 source)Encounter for screening for human papillomavirus (HPV); Translations: [ENC SCREENING HUMAN PAPILLOMAVIRUS]Onset: 77-16-4346DcqaffrlZfgyg diseases of kidney and ureters (1 source)Hydronephrosis with renal and ureteral calculous obstruction; Translations: [HYDRONPHROS RENL AND URETRL CALCUL OBST]Onset: 19-95-0740Awrayeqo Other lower respiratory disease (5 sources)Dyspnea, unspecified; Translations: [DYSPNEA UNSPECIFIED]Onset: 58-66-9909ZgsoljjpVnhtcxlf codes; unclassified (1 source)Acquired absence of other specified parts of digestive tract; Translations: [ACQ ABSENCE OTH PART DIGESTV TRACT]Onset: 38-40-8807Sjncyeiz Residual codes; unclassified (1 source)Acquired absence of both cervix and uterus; Translations: [ACQUIRED ABSENCE BOTH CERVIX AND UTERUS]Onset: 68-18-1347Vmiimbnm Results Test NameValueInterpretationReference RangeFacilityC ANAon 01-15-2025 AYAD Final No anaerobic growth after 72 hrs.[facility] HospitalComment on above:Performed By: #### ANAC #### [facility] [address] [place] [address] [id number] Woundon 01-14-2025 Wound Final No growth at 48 hours.[facility] HospitalComment on above: Performed By: #### WDC #### [facility] [address] [place] [id number] Trackon [id number] Received FromDetwiler Memorial HospitalComgarden city hospital on above:Performed By: #### Outreach Tracking Order #### [address] [address]Ecpliygwgd Visit Summaryon 89-80-8051Saiwrwzewz Visit Summary Ambulatory Visit Summary JOSEPHINE JANG Kristy :1980 Visit Date:12/02/2024 Ambulatory Visit Instructions Your Diagnosis Subcutaneous nodule of left lower extremity Tests Performed US Extremity Non-Vascular Limited Left -- Results Pending -- Please visit your patient portal for your results or contact your primary care physician. Your Care Team Attending Physician - YOLY AKBAR, Jl Nieves Primary Care Physician - Angelica Veronica MD This Is Your Medications List Contact [...] Tablets By Mouth 2 times a day Contactprescribing physician if questions or concerns Unchanged hydrOXYzine [...] you for choosing us for your care. [facility] CenterDrugs of Abuse, S/Jm 06-14-2024 Amphetamines, S/PNegativeNormalCutoff [address] [place], [place] [address]Comment on above: Performed By: #### ADAU9S #### [facility] [address] [place] [address] Multimedia Engineer: Trey Carroll MD #### CP, CDP, MG #### [facility] [address] [place] [address] Multimedia Engineer: Belia Sturtz, MDBarbiturates, S/PNegativeNormalCutoff 50[facility] HospitalComment on above:Performed By: #### ADAU9S #### [facility] [address] [place] [address] Multimedia Engineer: Trey Carroll MD #### CP, CDP, MG #### [facility] [address] [place] [address] Multimedia Engineer: Belia Manjarrez MDBenzodiazepines, S/PNegativeNormalCutoff 50[facility] HospitalComment on above:Performed By: #### ADAU9S #### [facility] [address] [place] [address] Multimedia Engineer: Trey Carroll MD #### CP, CDP, MG #### [facility] [address] [place] [address] Multimedia Engineer: Belia Manjarrez MDBuprenorphine, S/PNegativeNormalCutoff [address] [place] [address] HospitalComment on above:Performed By: #### ADAU9S #### [facility] [address] [place] [address] Multimedia Engineer: Trey Carroll MD #### CP, CDP, MG #### [facility] [address] [place] [address] Multimedia Engineer: JUAN MIGUEL Anguianoocaine, Serum/PlasNegativeNormalCutoff 20[facility] HospitalComment on above:Performed By: #### ADAU9S #### [facility] [address] [place] [address] Multimedia Engineer: Trey Carroll MD #### CP, CDP, MG #### [facility] [address] [place] [address] Multimedia Engineer: JUAN MIGUEL AnguianoommentSee NoteNormalEast [facility] City Hospital HospitalComment on above:Result Comment: (NOTE) INTERPRETIVE INFORMATION: Drug Screen 9 Panel, Serum [...] developed and its performance characteristics determined by [facility]. It has not been cleared or approved by the [place] Food and Drug Administration. This test was performed in a CLIA certified laboratory and is intended for clinical purposes. Performed By: [facility] [address] [place] [address] Water Attendant: Trace Vazquez MD, PhD [place] Number: [id number] By: #### ADAU9S #### [facility] [address] [id number] Multimedia Engineer: Trey Carroll MD #### MARITZA ROMERO, MG #### [address] [place] [address] Multimedia Engineer: DIANA Anguianoethadone, S/PNegativeNormalCutoff [address] [place], [place] [address]Comment on above:Performed By: #### ADAU9S #### [facility] [address] [place] [id number] Multimedia Engineer: Trey Carroll MD #### MARITZA ROMERO, MG #### [address] [place] [address] Multimedia Engineer: DIANA Anguianoethamphetamine,S/PNegativeNormalCutoff [address] [place], [place] [address]Comment on above:Performed By: #### ADAU9S #### [facility] [address] [place] [address] Multimedia Engineer: Trey Carroll MD #### CP, CDP, MG #### [facility] [address] [place] [address] [place] [address] Multimedia Engineer: Belia Manjarrez MDLenox Hill Hospital, Serum/PlasNegativeNormalCutoff [address] [place], [place] [address]Comment on above:Performed By: #### ADAU9S #### [facility] [address] [place], [place] [id number] Multimedia Engineer: Trey Carroll MD #### CP, CDP, MG #### [facility] [address] [place] [address] [place] [address] Multimedia Engineer: Belia Manjarrez MDOxycodone, S/PNegativeNormalCutoff [address] [place], [place] [address]Comment on above:Performed By: #### ADAU9S #### [facility] [address] [place], [place] [id number] Multimedia Engineer: Trey Carroll MD #### CP, CDP, MG #### [facility] [address] [place] [address] [place] [address] Multimedia Engineer: Isadora Anguianoidine, S/PNegativeNormalCutoff [address] [place], [place] [address]Comg[facility] city hospital on above:Performed By: #### ADAU9S #### [facility] [address] [place], [place] [id number] Multimedia Engineer: Trey Carroll MD #### CP, CDP, MG #### [facility] [address] [place] [address] [place] [address] Multimedia Engineer: Belia Manjarrez MDKETTERING HEALTH [facility]IL[facility], Serum/PlasmaNegativeNormalCutoff 20[facility] HospitalComment on above:Performed By: #### ADAU9S #### [facility] [address] [place] [address] Multimedia Engineer: Trey Carroll MD #### CP, CDP, MG #### [facility] [address] [place] [address] [place] [address] Multimedia Engineer: JUAN MIGUEL Anguiano with Diffon 92-97-0725Dzx. Basophil0.04 k/uL Normal0.00-0.20[facility] HospitalComment on above:Performed By: #### ADAU9S #### [facility] [address] [place] [address] Multimedia Engineer: Trey Carroll MD #### HEATHER, CDP, MG #### [address] [place], [place] [address] Multimedia Engineer: Sarah Anguiano.Imm.Granulocyte0.06 k/uLNormal0.00-0.30[facility] HospitalComment on above:Performed By: #### ADAU9S #### [facility] [address] [place] [address] Multimedia Engineer: Trey Carroll MD #### HEATHER, CDP, MG #### [address] [place], [place] [address] Multimedia Engineer: Sarah Anguiano.Neutrophil (Seg)6.02 k/uLNormal1.50-8.10[facility] HospitalComment on above:Performed By: #### ADAU9S #### [facility] [address] [place] [address] Multimedia Engineer: Trey Carroll MD #### CP, CDP, MG #### [facility] [address] [place] [address] [place], [place] [id number] Multimedia Engineer: Belia Manjarrez MDBasophils/100 WBC (Bld)0 %Normal0-2[facility] HospitalComment on above:Performed By: #### ADAU9S #### [facility] [address] [place] [address] Multimedia Engineer: Trey Carroll MD #### CP, CDP, MG #### [facility] [address] [place] [address] [place] [address] Multimedia Engineer: Belia Manjarrez MDEosinophils (Bld) [#/Vol]0.16 10*3/uLNormal 0.00-0.44[facility] HospitalComment on above:Performed By: #### ADAU9S #### [facility] [address] [place] [address] Multimedia Engineer: Trey Carroll MD #### CP, CDP, MG #### [address] [place] [id number] Multimedia Engineer: Belia Manjarrez MDEosinophils/100 WBC (Bld)2 %Normal1-4[facility] HospitalComment on above:Performed By: #### ADAU9S #### [facility] [address] [place] [address] Multimedia Engineer: Trey Carroll MD #### CP, CDP, MG #### [address] [place] [id number] Multimedia Engineer: Belia Manjarrez MDErythrocyte distribution width (RBC) [Ratio]13.3 % Gmpvnq46.8-14.4[facility] HospitalComment on above:Performed By: #### ADAU9S #### [facility] [address] [place], [place] [id number] Multimedia Engineer: Trey Carroll MD #### CP, CDP, MG #### [address] [place] [address] Multimedia Engineer: Belia Manjarrez MDHematocrit (Bld) [Volume fraction]41.0 %Normal 36.3-47.1MSt. Elizabeth Hospital HospitalComment on above:Performed By: #### ADAU9S #### [facility] [address] [place] [address] Multimedia Engineer: Trey Carroll MD #### CP, CDP, MG #### [address] [place] [address] Multimedia Engineer: Belia Manjarrez MDHemoglobin (Bld) [Mass/Vol]14.1 g/dLNormal 11.9-15.1Mst. vincent hospitaly [place] HospitalComment on above:Performed By: #### ADAU9S #### [facility] [address] [place] [address] Multimedia Engineer: Trey Carroll MD #### CP, CDP, MG #### [address] [place] [address] Multimedia Engineer: Belia Manjarrez MDImmature granulocytes/100 WBC (Bld)1 %Bzvd9UmoogHenry County HospitalComment on above:Performed By: #### ADAU9S #### [facility] [address] [place] [address] Multimedia Engineer: Trey Carroll MD #### CP, CDP, MG #### [address] [place] [address] Multimedia Engineer: Belia Manjarrez MDLymphocytes (Bld) [#/Vol]3.39 10*3/uLNormal 1.10-3.70[facility] HospitalComment on above:Performed By: #### ADAU9S #### [facility] [address] [place] [address] Multimedia Engineer: Trey Carroll MD #### CP, CDP, MG #### [address] [place] [address] Multimedia Engineer: Belia Manjarrez MDLymphocytes/100 WBC (Bld)33 %Tngbea88-27VzmkjHenry County HospitalComment on above:Performed By: #### ADAU9S #### [facility] [address] [place] [address] Multimedia Engineer: Trey Carroll MD #### CP, CDP, MG #### [address] [place] [address] Multimedia Engineer: DIANA AnguianoCH (RBC) [Entitic mass]30.9 trEeszoa18.2-33.5 [facility] HospitalComment on above:Performed By: #### JEU9S #### [facility] [address] [place], [place] [id number] Multimedia Engineer: Trey Carroll MD #### HEATHER CDP, MG #### [address] [place] [address] Multimedia Engineer: PILLO AnguianoC (RBC) [Mass/Vol]34.4 g/eZBtcyvm14.4-34.8[facility] HospitalComment on above:Performed By: #### ADAU9S #### [facility] [address] [place], [place] [id number] Multimedia Engineer: Trey Carroll MD #### HEATHER, CDP, MG #### [address] [place] [address] Multimedia Engineer: DIANA AnguianoCV (RBC) [Entitic vol]89.9 xCNtcgwc69.6-102.9 [facility] HospitalComment on above:Performed By: #### ADAU9S #### [facility] [address] [place], [place] [id number] Multimedia Engineer: Trey Carroll MD #### HEATHER, CDP, MG #### [address] [place], [place] [address] Multimedia Engineer: Belia Manjarrez MDMonocytes (Bld) [#/Vol]0.67 10*3/uLNormal0.10-1.20 [facility] HospitalComment on above:Performed By: #### ADAU9S #### [facility] [address] [place] [address] Multimedia Engineer: Trey Carroll MD #### CP, CDP, MG #### [address] [place], [place] [address] Multimedia Engineer: Belia Manjarrez MDMonocytes/100 WBC (Bld)7 %Normal3-12[facility] HospitalComment on above:Performed By: #### ADAU9S #### [facility] [address] [place] [address] Multimedia Engineer: Trey Carroll MD #### CP, CDP, MG #### [address] [place] [address] Multimedia Engineer: Belia Manjarrez MDNeutrophil (Seg)57 %Mftluz04-79RnebuHenry County HospitalComment on above:Performed By: #### ADAU9S #### [facility] [address] [place] [address] Multimedia Engineer: Trey Carroll MD #### CP, CDP, MG #### [address] [place] [address] Multimedia Engineer: Belia Manjarrez MDNRBC Automated0.0 per 100 WBCNormal0.0[facility] HospitalComment on above:Performed By: #### ADAU9S #### [facility] [address] [place] [address] Multimedia Engineer: Trey Carroll MD #### CP, CDP, MG #### [address] [place], [place] [address] Multimedia Engineer: Salvador Anguiano mean volume (Bld) [Entitic vol]9.6 fL Normal8.1-13.5[facility] HospitalComment on above:Performed By: #### ADAU9S #### [facility] [address] [place] [address] Multimedia Engineer: Trey Carroll MD #### HEATHER, CDP, MG #### [address] [place] [address] Multimedia Engineer: Diane Anguiano (Bld) [#/Vol]314 10*3/uHSvebun948-130 [facility] HospitalComment on above:Performed By: #### ADAU9S #### [facility] [address] [place] [address] Multimedia Engineer: Trey Carroll MD #### MARITZA ROMERO, MG #### [address] [place] [address] Multimedia Engineer: BETTY AnguianoBC (Bld) [#/Vol]4.56 10*6/uLNormal3.95-5.11[facility] HospitalComment on above:Performed By: #### ADAU9S #### [facility] [address] [place] [address] Multimedia Engineer: Trey Carroll MD #### HEATHER, CDP, MG #### [address] [place] [address] Multimedia Engineer: Belia Manjarrez MDWBC (Bld) [#/Vol]10.3 10*3/uLNormal3.5-11.3MMercer County Community HospitalComment on above:Performed By: #### ADAU9S #### [facility] [address] [place] [address] Multimedia Engineer: Trey Carroll MD #### CP, CDP, MG #### [facility] [address] [place] [address] Multimedia Engineer: JUAN MIGUEL Anguianoomp Metabolic Profon 14-75-0385Frpqvrp [Mass/Vol] 4.4 g/dLNormal3.5-5.2[facility] HospitalComment on above:Performed By: #### ADAU9S #### [facility] [address] [place] [address] Multimedia Engineer: Trey Carroll MD #### CP, CDP, MG #### [facility] [address] [place] [address] Multimedia Engineer: Belia Manjarrez MDAlbumin/Glob Ratio1.3Lxattx1.0-2.5[facility] HospitalComment on above:Performed By: #### ADAU9S #### [facility] [address] [place] [address] Multimedia Engineer: Trey Carroll MD #### CP, CDP, MG #### [facility] [address] [place] [address] Multimedia Engineer: Venancio Anguiano Avug087 U/KYcxi06-896OjeigHenry County HospitalComment on above:Performed By: #### ADAU9S #### [facility] [address] [place] [address] Multimedia Engineer: Trey Carroll MD #### CP, CDP, MG #### [facility] [address] [place] [address] Multimedia Engineer: Belia Manjarrez MDALT [Catalytic activity/Vol]46 U/LHigh5-33[facility] HospitalComment on above:Performed By: #### ADAU9S #### [facility] [address] [place] [address] Multimedia Engineer: Trey Carroll MD #### CP, CDP, MG #### [facility] [address] [place] [address] Multimedia Engineer: Raquel Anguiano gap [Moles/Vol]10 mmol/LNormal9-17[facility] HospitalComment on above:Performed By: #### ADAU9S #### [facility] [address] [place] [address] Multimedia Engineer: Trey Carroll MD #### CP, CDP, MG #### [facility] [address] [place] [address] Multimedia Engineer: SAY Anguiano [Catalytic activity/Vol]32 U/LHigh<32Henry County HospitalComment on above:Performed By: #### ADAU9S #### [facility] [address] [place] [address] Multimedia Engineer: Trey Carroll MD #### HEATHER, CDP, MG #### [facility] [address] [place] [address] Multimedia Engineer: Belia Manjarrez MDBilirubin [Mass/Vol]0.4 mg/dLNormal0.3-1.2Mst. vincent hospitaly Veterans Administration Medical CenterComment on above:Performed By: #### ADAU9S #### [facility] [address] [place] [address] Multimedia Engineer: Trey Carroll MD #### HEATHER, CDP, MG #### [facility] [address] [place] [address] Multimedia Engineer: Belia Manjarrez MDBUN/CRE Wlmps84Jrgiii4-14[facility] Comment on above:Performed By: #### ADAU9S #### [facility] [address] [place] [address] Multimedia Engineer: Trey Carroll MD #### CP, CDP, MG #### [facility] [address] [place] [address] [place] [address] Multimedia Engineer: JUAN MIGUEL Anguianoalcium [Mass/Vol]9.1 mg/dLNormal8.6-10.4Henry County HospitalComment on above:Performed By: #### ADAU9S #### [facility] [address] [place] [address] Multimedia Engineer: Trey Carroll MD #### CP, CDP, MG #### [address] [place] [address] Multimedia Engineer: JUAN MIGUEL Anguianohloride [Moles/Vol]106 mmol/MIbyzoh92-327YdtsfHenry County HospitalComment on above:Performed By: #### ADAU9S #### [facility] [address] [place], [place] [id number] Multimedia Engineer: Trey Carroll MD #### HEATHER, CDP, MG #### [address] [place] [address] Multimedia Engineer: JUAN MIGUEL AnguianoO2 [Moles/Vol]26 mmol/JWrtnyh24-94RnicfHenry County HospitalComment on above:Performed By: #### ADAU9S #### [facility] [address] [place] [address] Multimedia Engineer: Trey Carroll MD #### CP, CDP, MG #### [address] [place] [address] Multimedia Engineer: JUAN MIGUEL Anguianoreatinine [Mass/Vol]0.5 mg/dLNormal0.5-0.9[facility] HospitalComment on above:Performed By: #### ADAU9S #### [facility] [address] [place] [address] Multimedia Engineer: Trey Carroll MD #### CP, CDP, MG #### [address] [place] [address] Multimedia Engineer: Belia Manjarrez MDGFR/1.73 sq M.predicted among non-blacks MDRD (S/P/Bld) [Vol rate/Area]mL/min/{1.73_m2}Normal>60Mer[facility] Administration Medical CenterComment on above:Result Comment: These results are not intended for [...] or following therapy that affects renal tubular secretion.Performed By: #### JEU9S #### [facility] [address] [place] [address] Multimedia Engineer: Trey Carroll MD #### MARITZA ROMERO, MG #### [address] [place] [address] Multimedia Engineer: Belia Manjarrez MDGlucose [Mass/Vol]90 mg/fNXidqje04-24HhluuMercer County Community HospitalComment on above:Performed By: #### ADAU9S #### [facility] [address] [place] [address] Multimedia Engineer: Trey Carroll MD #### MARITZA ROMERO, MG #### [address] [place] [address] Multimedia Engineer: FRANKLIN Anguianootassium [Moles/Vol]4.2 mmol/LNormal3.7-5.3Mst. vin[facility] hospitaly [facility] Administration Medical CenterComment on above:Performed By: #### ADAU9S #### [facility] [address] [place] [address] Multimedia Engineer: Trey Carroll MD #### HEATHER CDP, MG #### [facility] [address] [place] [address] [place] [address] Multimedia Engineer: FRANKLIN Anguianorotein [Mass/Vol]7.4 g/dLNormal6.4-8.3[facility] Miami HospitalComment on above:Performed By: #### ADAU9S #### [facility] [address] [place], [place] [id number] Multimedia Engineer: Trey Carroll MD #### CP, CDP, MG #### [address] [place] [address] Multimedia Engineer: JANE Anguianoodium [Moles/Vol]142 mmol/VSofqjn984-886B[facility] Miami HospitalComment on above:Performed By: #### ADAU9S #### [facility] [address] [place] [address] Multimedia Engineer: Trey Carroll MD #### CP, CDP, MG #### [address] [place] [address] Multimedia Engineer: Belia Manjarrez MDUrea nitrogen [Mass/Vol]6 mg/dLNormal6-20[facility] HospitalComment on above:Performed By: #### ADAU9S #### [facility] [address] [place] [address] Multimedia Engineer: Trey Carroll MD #### CP, CDP, MG #### [address] [place] [address] Multimedia Engineer: RENARD Anguianorug Scr, Abuse, Uron 56-94-7466Jormaslxebp(s),Ur NegativeNormalNEGMercy Miami HospitalComment on above:Result Comment: (Positive cutoff 1000 ng/mL)Performed By: #### RAHUL #### [address] [place] [address] Multimedia Engineer: Belia Manjarrez MDBarbiturate(s),UrNegativeNormalNEGMercy Miami HospitalComment on above:Result Comment: (Positive cutoff 200 ng/mL)Performed By: #### RAHUL #### [address] [place], [place] [address] Multimedia Engineer: Belia Manjarrez MDBenzodiazepine(s)NegativeNormalNEGMercy Miami HospitalComment on above:Result Comment: (Positive cutoff 200 ng/mL)Performed By: #### RAHUL #### [address] [place], [facility] Multimedia Engineer: Belia Manjarrez MDBuprenorphrine, UrNegativeNormalNEGMercy Miami HospitalComment on above:Result Comment: (Positive cutoff 5 ng/ml)Performed By: #### RAHUL #### [address] [place], [facility] Multimedia Engineer: JUAN MIGUEL Anguianoannabinoid(s),UrNegativeNormalNEGMercy Miami HospitalComgarden city hospital on above:Result Comment: (Positive cutoff 50 ng/mL)Performed By: #### RAHUL #### [address] [place], [place] [address] Multimedia Engineer: JUAN MIGUEL Anguianoocaine MetaboliteNegativeNormalNEGMercy Veterans Administration Medical CenterComgarden city hospital on above:Result Comment: (Positive cutoff 300 ng/mL)Performed By: #### RAHUL #### [address] [place], [facility] Multimedia Engineer: Belia Manjarrez MDFentanyl, UrineNegativeNormalNEGMercy Miami HospitalComment on above:Result Comment: (Positive cutoff 5 ng/ml)Performed By: #### RAHUL #### [address] [place], [place] [address] Multimedia Engineer: Belia Manjarrez MDInterpretive InfoAssay provides medical screening only. The absence of expected drug(s) and/orNormalMercy Miami HospitalComment on above:Result Comment: metabolite(s) may indicate diluted or adulterated urine, limitations of testing or timing of collection. Testing for legal purposes should be confirmed by another method. To request confirmation of test result, please call the lab within 7 days of sample submission.Performed By: #### RAHUL #### [address] [place], [place] [address] Multimedia Engineer: DIANA Anguianoethadone Ql (U)NegativeNormalNEGMercy Miami HospitalComment on above:Result Comment: (Positive cutoff 300 ng/mL)Performed By: #### RAHUL #### [address] [place], [place] [address] Multimedia Engineer: Belia Manjarrez MDOpiate(s), UrNegativeNormalNEGMercy Miami HospitalComment on above:Result Comment: (Positive cutoff 300 ng/mL)Performed By: #### RAHUL #### [address] [place], [place] [address] Multimedia Engineer: Belia Manjarrez MDOxycodone, UrineNegativeNormalNEGMercy Miami HospitalComment on above:Result Comment: (Positive cutoff 100 ng/mL)Performed By: #### RAHUL #### [address] [place], [place] [address] Multimedia Engineer: FRANKLIN Anguianohencyclidine, UrNegativeNormalNEGMerBrown Memorial Hospital HospitalComgarden city hospital on above:Result Comment: (Positive cutoff 25 ng/mL)Performed By: #### RAHUL #### [address] [place], [place] [address]83 Multimedia Engineer: Belia Manjarrez MDMagnesiumon 86-06-1007Qbeziorxf [Mass/Vol]2.2 mg/dLNormal1.6-2.6[facility] Miami HospitalComment on above:Performed By: #### ADAU9S #### [address] [address] Multimedia Engineer: Trey Carroll MD #### CP, CDP, MG #### [facility] [address] [place] [address] Multimedia Engineer: EUGENIO AnguianoR knee LT 4V*on 80-72-2361FN knee LT 4V*[facility] [employer] Other XR knee LT 4V*[facility] [employer] Other XR knee LT 4V*[address] [facility] [employer] Other XR knee LT 4V*[place] [address]Tstfj [employer] Other XR knee LT 4V*[facility] [employer] Other XR knee LT 4V*[facility] [employer] Other XR knee LT 4V*Patient: Josephine Jang MR#: [id number] [place] [employer] Other XR knee LT 4V*[facility] [employer] Other XR knee LT 4V*: 1980 Acct:[id number] [employer] Other XR knee LT 4V*Age/Sex: 43 / F ADM Date: 09/13/23[place] [employer] Other XR knee LT 4V*Loc: XDUCLY Room: [facility] [employer] Other XR knee LT 4V*Attending Dr: Shae Love [employer] Other XR knee LT 4V*Copies to: Shae Love [employer] Other XR knee LT 4V*Ordering Provider: Shae Love APRN [employer] Other XR knee LT 4V*Date of Service: 09/13/23[employer] Other XR knee LT 4V* XR/XR knee LT 4V*: InjuryNobates [facility] hospital [employer] Other XR knee LT 4V*XR knee LT 4V* 09/13/2023 10:51 [employer] [facility] [employer] [facility] [employer] Other XR knee LT 4V*SIGNS AND SYMPTOMS: Twisting injury to left knee with pain and swelling mediallyLinn Grove [employer] Other XR knee LT 4V*PROTOCOL: Frontal, lateral, and oblique radiographs of the left kneeNobates county memorial hospital [employer] Other XR knee LT 4V*COMPARISON: [facility] [employer] Other XR knee LT 4V*FINDINGS:[employer] Other XR knee LT 4V*The joint spaces are preserved. There is a moderate joint effusion. There is no evidence of fractureNobates county memorial hospital [employer] Other XR knee LT 4V*or dislocation. No significant soft tissue swelling.[employer] Other XR knee LT 4V* XR/XR knee LT 4V* [employer] Other XR knee LT 4V*IMPRESSION:[employer] Other XR knee LT 4V*No fracture.[employer] Other XR knee LT 4V*There is a moderate joint effusion.[employer] Other XR knee LT 4V*Impression dictated by: Donato Rockwell M.D.09/13/2023 11:19 [employer] Other XR knee LT 4V*Dictation Location: [address] [employer] Other XR knee LT 4V*Transcribed By: NICKY 09/13/[address] [place] [address] [employer] Other XR knee LT 4V*Dictated By: Donato Rockwell II, MD 09/13/[address] [place] [address] [employer] Other XR knee LT 4V*Signed By:[facility] [employer] Other XR knee LT 4V*09/13/[address] [place] [address] [employer] Other XR knee LT 4V*[facility] [place] [address] [place] [address] XRay Report Signed Patient: Josephine Jang MR#: [id number] 8 : 1980 Acct:[id number] Age/Sex: 43 / F ADM Date: 09/13/23 Loc: XDUCLY Room: Type: [facility] Attending Dr: Shae Love APRN Copies [...] Donato Rockwell M.D.09/13/2023 11:19 AM Dictation Location: [place] [address] Transcribed By: [facility] 09/13/231118 Dictated By: Donato Rockwell II, MD 09/13/231117 Signed By: 09/13/[address] [place], [place] [address]CT CHEST WO CONon 10-10-2022 CT CHEST WO CONEXAMINATION: CT CHEST WO CON HISTORY: Pneumonia COMPARISON: [...] Electronically authenticated by: AMANDA CASSIDY Date: 2022-10-10 10:35[facility] CenterCovid-19 PCR (CVDTBH)on 73-25-7428MKOO-CoV-2 (COVID-19) RNA RAYMOND+probe Ql (Unsp spec)Not detectedNormalNOT DETECTEDThe [facility] Comment on above:Result Comment: When diagnostic testing is negative, the [...] for this test is supported by the [place] of Health and Human Service's declaration that circumstances exist to justify the emergency use of in vitro diagnostics for the detection and/or diagnosis of the virus that causes COVID-19. This EUA will remain in effect for the duration of the COVID-19 declaration justifying emergency of IVDs, unless it is terminated or revoked by the FDA (after which the test may no longer be used).Performed By: #### CVDTBH #### [facility] [address] [place] [address] Dr. Les BryanCT CHEST WO CONon 12-03-2372AD CHEST WO CONEXAMINATION: CT CHEST WO CON HISTORY: Mass of [...] 0.4 cm, nonspecific Electronically authenticated by: BELIA COLBERT Date: 2022-09-01 09:[address] [place], [place] [address]MG MAMM SCREEN 3D GUSTAVO CADon 07-20-3037YZ MAMM SCREEN 3D GUSTAVO CAD Patient: JOSEPHINE JANG Exam Date: 09/01/2022 : 1980 Gender:F Ordering : DR ANGELICA VERONICA . Admission #: [id number] Family : Order #: [id number] CLICK HERE TO VIEW EXAM RADIOLOGY REPORT [...] bladder cancer at age 59. LOCATION: [facility] BREAST COMPOSITION: Scattered areas fibroglandular [...] LUMP SHOULD BE BIOPSIED. Dictated by: Belia Colbert MD on 09/01/2022 at 09:30 Approved by: Belia Colbert MD on 09/01/2022 at 09:32[facility] Board[facility] HospitalOG PANEL 2: 21 to 29on 06-02-2022..NormalThe [facility] on above:Result Comment: Performed at: WBPerformed By: #### [id number] #### [facility] [address] [place] [address] Dr. Les BryanAge Gdln ACOG Tvztwei23-90VqpmwyRgeSamaritan North Health Center on above:Performed By: #### [id number] #### [facility] [address] [place] [address] [address] Les BryanDIAGNOSIS:CommentOhioHealth Doctors Hospital on above: Result Comment: NEGATIVE FOR INTRAEPITHELIAL LESION OR MALIGNANCY. Performed at: WBPerformed By: #### [id number] #### [facility] [address] [place] [address] [address] Les BryanHPV AptimaNegativeNormalNegativeAkron Children's Hospital on above:Result Comment: This nucleic acid amplification test detects fourteen high-risk HPV types (16,18,31,33,35,39,45,51,52,56,58,59,66,68) without differentiation. Performed at: =GPerformed By: #### [id number] #### [facility] [address] [place] [address] Dr. Les BryanMethodology:CommentOhioHealth Doctors Hospital on above: Result Comment: This liquid based ThinPrep(R) pap test was screened with the use of an image guided system. Performed at: WBPerformed By: #### [id number] #### [facility] [address] [place] [address] Dr. Les BryanNote:CommentOhioHealth Doctors Hospital on above:Result Comment: The Pap smear is a screening test designed to aid in the detection of premalignant and malignant conditions of the uterine cervix. It is not a diagnostic procedure and should not be used as the sole means of detecting cervical cancer. Both false-positive and false-negative reports do occur. . Performed at: WBPerformed By: #### [id number] #### [facility] [address] [place] [address] Dr. Les BryanPerformed by:CommentOhioHealth Doctors Hospital on above: Result Comment: Genaro Cuevas, Grass Farmer (ASCP) Performed at: WBPerformed By: #### [id number] #### [facility] [address] [place] [address] Dr. Les BryanSpecimetammy adequacy:CommentOhioHealth Doctors Hospital on above:Result Comment: Satisfactory for evaluation. Endocervical and/or squamous metaplastic cells (endocervical component) are present. Performed at: WBPerformed By: #### [id number] #### [place] [address] Dr. Les GuyPATITIS PANEL, [facility] 86-84-1087AOpCb ScreenNegativeNormal NegativeThe [facility] Ritt[facility] Medical CenterComgarden city hospital on above:Performed By: #### HEPACUT #### [facility] [address] [place] [address] Dr. Les BryanHCInga AB0.2 s/co ratioNormal0.0-0.9The [facility] on above:Performed By: #### HEPACUT #### [facility] [address] [place] [address] Dr. Les Nino Ab, IgMNegativeNormalNegativeThe [facility] on above:Performed By: #### HEPACUT #### [facility] [address] [place] [address] Dr. Les Linares Core Ab, IgMNegativeNormalNegativeSumma Health [facility] Comment on above:Performed By: #### HEPACUT #### [facility] [address] [place] [address] Dr. Les BryanInterpretation:CommentNormalThe [facility] Ritt[facility] Medical CenterComment on above:Result Comment: Negative Not infected with HCV, unless recent infection is suspected or other evidence exists to indicate HCV infection.Performed By: #### HEPACUT #### [facility] [address] [place] [address] Dr. Les BryanINSULINon 42-90-1350Ofyqoed84.8 uIU/mLNormal2.6-24.9The [facility] Rittman Medical CenterComment on above:Performed By: #### INSULIN #### [facility] [address] [place] [address] Dr. Les BryanBILIRUBIN CONJUGATED (DIRECT)on 74-64-2826APID, CONJUGATED0.1 mg/dLNormal0.0-0.2The [facility]ittman Medical CenterComment on above:Performed By: #### AMIE UMDARCIERO #### [facility] [address] [place] [address] Dr. Les Sales 00-82-7976Rgqnjmcffws peptide B (Bld) [Mass/Vol]12.0 pg/mL Normal<=450.0The [facility] Rittman Medical CenterComment on above:Performed By: #### BARBER HOLLOWAYRO #### [facility] [address] [place] [address] Dr. Les HillC AUTO DIFFon 70-46-3136RYGJ #0.1 103/ulNormal0.0-0.1The [facility] Rittman Medical CenterComment on above:Performed By: #### CBC #### [facility] [address] [place] [address] Dr. Les BryanBasophils/100 WBC (Bld)0.6 %Normal0.2-2.0[facility] Comment on above:Performed By: #### CBC #### [facility] [address] [place] [address] Dr. Les Esteban #0.3 103/ulNormal0.0-0.7The [facility] Rittman Medical CenterComment on above: Performed By: #### CBC #### [facility] [address] [address] [address] Les Fryeosinophils/100 WBC (Bld)3.0 %Normal0.9-7.0The [facility] Comment on above:Performed By: #### CBC #### [facility] [address] [place] [address] Dr. Les Fryerythrocyte distribution width (RBC) [Ratio]13.2 %Kqocus09.0-15.0 The [facility] Rittman Medical CenterComment on above:Performed By: #### CBC #### [facility] [address] [place] [address] Dr. Les BryanHematocrit (Bld) [Volume fraction]40.8 %Psaboa85.0-48.0The [facility] Rittman Medical CenterComment on above:Performed By: #### CBC #### [facility] [address] [place] [address] Dr. Les BryanHemoglobin (Bld) [Mass/Vol]13.4 g/hLKgrbhs85.0-16.0The [facility]itt[facility] Medical CenterComment on above:Performed By: #### CBC #### [facility] [address] [place] [address] Dr. Les Hudson #0.07 10e3/ulCritically high0.00-0.03The [facility] Comment on above:Performed By: #### CBC #### [facility] [address] [place] [address] Dr. Les Hudson %0.8 %Critically high0.0-0.5The [facility] Rittman Medical CenterComment on above:Performed By: #### CBC #### [facility] [address] [place] [address] Dr. Les Cheema #2.8 103/ulNormal1.2-3.8The [facility] Rittman Medical CenterComment on above:Performed By: #### CBC #### [facility] [address] [place] [address] Dr. Les Thomsonmphocytes/100 WBC (Bld)31.7 %Kictwb14.5-60.0The [facility] Rittman Medical CenterComment on above:Performed By: #### CBC #### [facility] [address] [place] [address] Dr. Les NicholsUAL DIFF REQNONormalThe [facility] Rittman Medical CenterComment on above: Performed By: #### CBC #### [facility] [address] [place] [address] Dr. Les Quinones (RBC) [Entitic mass]29.5 ljAiqpcg54.7-34.0The [facility] Rittman Medical CenterComment on above:Performed By: #### CBC #### [facility] [address] [place] [address] Dr. Les Quinones (RBC) [Mass/Vol]32.8 g/rSAdhnxn11.9-35.2The [facility]itt[facility] Medical CenterComment on above:Performed By: #### CBC #### [facility] [address] [place] [address] Dr. Les Quinones (RBC) [Entitic vol]89.9 iEXvelzp86.0-99.0The [facility] Medical CenterComment on above:Performed By: #### CBC #### [facility] [address] [place] [address] Dr. Les Amaya #0.4 103/ulNormal0.3-0.8The [facility]itt[facility] Medical CenterComment on above:Performed By: #### CBC #### [facility] [address] [place] [address] Dr. Les Howardocytes/100 WBC (Bld)4.7 %Normal1.7-12.0The [facility] Comment on above:Performed By: #### CBC #### [facility] [address] [place] [address] Dr. Les Dennis #5.3 103/ulNormal1.4-6.5The [facility]itt[facility] Medical CenterComment on above:Performed By: #### CBC #### [facility] [address] [place] [address] [address] Les Hellerutrophils/100 WBC (Bld)59.2 %Rqfdis57.0-75.0The [facility] Centerment on above:Performed By: #### CBC #### [facility] [address] [place] [address] [address] Les Cervantes mean volume (Bld) [Entitic vol]9.1 fLCritically low 9.5-13.5The [facility] Medical CenterComment on above:Performed By: #### CBC #### [facility] [address] [place] [address] [address] Les BryanPLT309 103/hgTwjywc586-233Njr [facility] on above: Performed By: #### CBC #### [facility] [address] [place] [address] Dr. Les BryanRBC4.54 106/ulNormal4.20-5.40The [facility] Medical Centerment on above:Performed By: #### CBC #### [facility] [address] [place] [address] Dr. Les BryanWBC8.9 103/ulNormal4.0-11.0The [facility] on above: Performed By: #### CBC #### [facility] [address] [place] [address] Dr. Les Vigil T3on 19-39-7960LDXF T32.02 pg/mlLCritically low2.18-3.98The [facility]itt[facility] Medical CenterComment on above:Performed By: #### BARBER HOLLOWAYRO #### [facility] [address] [place] [address] Dr. Les Vigil THYROXINE INDEX T7on 00-53-3949JOF4.30Yaqkqk7.30-4.50The [facility] on above:Performed By: #### SABINE HOLLOWAYICRO #### [facility] [address] [place] [address] Dr. Les BryanT3U30.0 %Gscsor76.0-39.0The [facility] Rittman Medical CenterComment on above: Performed By: #### SABINE HOLLOWAYICRO #### [facility] [address] [place] [address] [address] Les BryanT4 [Mass/Vol]6.90 ug/dLNormal4.80-13.90The [facility] Comment on above:Performed By: #### BARBER HOLLOWAYRO #### [facility] [address] [place] [address] Dr. Les BryanGLYCOHEMOGLOBIN A1Con [id number] RECOMMENDATIONSEE BELOWMercy Health Tiffin HospitalComment on above:Result Comment: ADA RECOMMENDED LIMIT 4.0 - 6.0 ADA THERAPEUTIC TARGET < 7.0 ACTION SUGGESTED > 7.0Performed By: #### A1C #### [facility] [address] [place] [address] Dr. Les BryanGlucose [Mass/Vol]120 mg/dLNoOhioHealth Grant Medical CenterComment on above:Performed By: #### A1C #### [facility] [address] [place] [address] Dr. Les BryanHbA1c (Bld) [Mass fraction]5.8 %Normal4.5-6.2The [facility] Medical CenterComment on above:Performed By: #### A1C #### [facility] [address] [place] [address] Dr. Les Gipson [id number] [Mass/Vol]66.0 ug/gQXxxyoq87.0-170.0The [facility]itt[facility] Medical CenterComment on above:Performed By: #### RICARDO HOLLOWAY #### [facility] [address] [place] [address] Dr. Les BryanLIPID PROFILEon [id number]-HDL RATIO NORMSEE [facility] HospitalComgarden city hospital on above:Result Comment: 3.3 - 4.4 LOW RISK 4.4 - 7.1 AVERAGE RISK 7.1 - 11.0 MODERATE RISK >11.0 HIGH RISKPerformed By: #### SABINE HOLLOWAYICRO #### [facility] [address] [address] [address] Les BryanCholesterol [Mass/Vol]244 mg/dLCritically high<=200The [facility] on above:Performed By: #### BARBER HOLLOWAYRO #### [facility] [address] [address] [address] Les BryanCholesterol in HDL [Mass/Vol]55 mg/jPCfwcwd48-58Qba [facility] CenterComgarden city hospital on above:Performed By: #### AMIE UMICRO #### [facility] [address] [address] [address] Les BryanCholesterol in LDL [Mass/Vol]155.4 mg/dLUniversity Hospitals Cleveland Medical CenterComgarden city hospital on above:Performed By: #### AMIE UMICRO #### [facility] [address] [place] [address] Dr. Les Osborneesterpage.total/Cholesterol in HDL [Mass ratio]4.4 {ratio} NormalThe [facility] CenterComgarden city hospital on above:Performed By: #### AMIE UMICRO #### [facility] [address] [place] [address] Dr. Les Hood NORMAL> or = 60 mg/dl - LOW CARDIOVASCULAR RISK <40 mg/dl - HIGH CARDIOVASCULAR RISKUniversity Hospitals Cleveland Medical CenterComgarden city hospital on above:Performed By: #### AMIE UMICRO #### [facility] [address] [place] [address] Dr. Les BryanLDL CALC NORMALSEE BELOWNoOhioHealth Grant Medical CenterComment on above:Result Comment: <100 mg/dl OPTIMAL 100 - 129 mg/dl NEAR OR ABOVE OPTIMAL 130 - 159 mg/dl BORDERLINE HIGH 160 - 189 mg/dl HIGH >190 mg/dl VERY HIGH Performed By: #### AMIE UMICRO #### [facility] [address] [place] [address] Dr. Les BryanTriglyceride [Mass/Vol]168 mg/dLCritically high<=150The [facility] on above:Performed By: #### AMIE UMICRO #### [facility] [address] [address] [address] Les BryanVLDL CALC33.6 mg/dLNormalThe [facility] CenterComment on above: Performed By: #### AMIE UMICRO #### [facility] [address] [address] [address] Les BryanPROF 14(COMP METB)on [id number] [Mass/Vol]3.9 g/dLNormal 3.4-5.0The [facility] Butler HospitalComment on above:Performed By: #### AMIE UMICRO #### [facility] [address] [address] [address] Les BryanAlbumin/Globulin [Mass ratio]0.9 {ratio}NormalThe [facility] CenterComment on above:Performed By: #### AMIE UMICRO #### [facility] [address] [place] [address] Dr. Les Kelly [Catalytic activity/Vol]137 U/LCritically lnng55-664Mxu [facility] CenterComment on above:Performed By: #### AMIE UMICRO #### [facility] [address] [place] [address] Dr. Les Singh [Catalytic activity/Vol]104 U/LCritically kbxc66-55Lmq [facility] CenterComment on above:Performed By: #### AMIE UMICRO #### [facility] [address] [address] [address] Les Baez gap [Moles/Vol]13.3 mmol/LNormalThe [facility] Comment on above:Performed By: #### AMIE UMICRO #### [facility] [address] [place] [address] Dr. Les Lopez [Catalytic activity/Vol]59 U/LCritically rlaf48-51Fpy [facility] CenterComment on above:Performed By: #### AMIE UMICRO #### [facility] [address] [place] [address] Dr. Les BryanBilirubin [Mass/Vol]0.3 mg/dLNormal0.2-1.0[facility] Comment on above:Performed By: #### RICARDO HOLLOWAY #### [facility] [address] [place] [address] Dr. Les BryanCalcium [Mass/Vol]9.0 mg/dLNormal8.5-10.1[facility] Comment on above:Performed By: #### AMIE UMDARCIERO #### [facility] [address] [place] [address] Dr. Les BryanChloride [Moles/Vol]104 mmol/VNabjov12-786ThdSumma Health [facility] Campus Comment on above:Performed By: #### BARBER HOLLOWAYRO #### [facility] [address] [place] [address] Dr. Les BryanCO2 [Moles/Vol]25.0 mmol/HJaoubt20.0-32.0[facility] Comment on above:Performed By: #### BARBER HOLLOWAYRO #### [facility] [address] [place] [address] Dr. Les BryanCreatinine [Mass/Vol]0.70 mg/dLNormal0.55-1.02[facility] CampusComment on above:Performed By: #### BARBER HOLLOWAYRO #### [facility] [address] [place] [address] Dr. Saldana ChangEGFR-AF XKPHORXK734 mL/min/1.21z4Swqzei>=60The [facility] Comment on above:Performed By: #### AMIE UMICRO #### [facility] [address] [place] [address] Dr. Les FryeGFR-NON AF ZTIYSBNU52 mL/min/1.52m3Shuloj>=60The [facility] CenterComment on above:Performed By: #### AMIE UMICRO #### [facility] [address] [place] [address] Dr. Les BryanGlobulin (S) [Mass/Vol]4.3 g/dLNormalThe [facility] CenterComment on above:Performed By: #### AMIE UMICRO #### [facility] [address] [place] [address] Dr. Les BryanGlucose [Mass/Vol]104 mg/rHUmkdmg86-059Oro [facility] Comment on above:Performed By: #### AMIE UMICRO #### [facility] [address] [place] [address] Dr. Les BryanPotassium [Moles/Vol]4.3 mmol/LNormal3.5-5.1The [facility] Comment on above:Performed By: #### AMIE UMICRO #### [facility] [address] [place] [address] Dr. Les BryanProtein [Mass/Vol]8.2 g/dLNormal6.4-8.2The [facility] Comment on above:Performed By: #### AMIE UMICRO #### [facility] [address] [place] [address] Dr. Les BryanSodium [Moles/Vol]138 mmol/CWuyket623-415Dea [facility] Comment on above:Performed By: #### AMIE UMICRO #### [facility] [address] [place] [address] Dr. Les BryanUrea nitrogen [Mass/Vol]10.0 mg/dLNormal7.0-18.0[facility] CampusComment on above:Performed By: #### AMIE UMICRO #### [facility] [address] [place] [address] Dr. Les Lopes nitrogen/Creatinine [Mass ratio]14.3 mg/mgNormalThe [facility] CenterComment on above:Performed By: #### AMIE UMICRO #### [facility] [address] [place] [address] Dr. Les Reardon 48-43-4387NUC8.067 uIU/mLCritically high0.358-3.740The [facility] CenterComment on above:Performed By: #### TSH, DBIL, BNP, FT3, T7, LIPID, CMP #### [facility] [address] [place] [address] Dr. Les BryanINSULINon 90-41-4916Sagxbti25.6 uIU/mLCritically high2.6-24.9The [facility] CenterComment on above:Performed By: #### RICARDO HOLLOWAY #### [facility] [address] [place] [address] Dr. Les Ambrosio4 LABCORPon [id number] [Mass/Vol]6.7 ug/dLNormal4.5-12.0The [facility] CenterComment on above:Performed By: #### [id number] #### [facility] [address] [place] [address] Dr. Les Sales 70-51-7050Bnmvhgnqpmr peptide B (Bld) [Mass/Vol]18.0 pg/mL Normal<=450.0The [facility] CenterComment on above:Performed By: #### RICARDO HOLLOWAY #### [facility] [address] [place] [address] Dr. Les HillC AUTO DIFFon 22-73-1348OPIP #0.1 103/ulNormal0.0-0.1The [facility] CenterComment on above:Performed By: #### [id number] #### [facility] [address] [place] [address] Dr. Les BryanBasophils/100 WBC (Bld)0.6 %Normal0.2-2.0The [facility] Comment on above:Performed By: #### [id number] #### [facility] [address] [place] [address] Dr. Les Esteban #0.2 103/ulNormal0.0-0.7The [facility] CenterComment on above: Performed By: #### [id number] #### [facility] [address] [place] [address] Dr. Les Fryeosinophils/100 WBC (Bld)1.9 %Normal0.9-7.0The [facility] Comment on above:Performed By: #### [id number] #### [facility] [address] [address] [address] Les Fryerythrocyte distribution width (RBC) [Ratio]13.3 %Ylijpd25.0-15.0 The [facility] CenterComment on above:Performed By: #### [id number] #### [facility] [address] [place] [address] Dr. Les BryanHematocrit (Bld) [Volume fraction]39.1 %Anjgag64.0-48.0The [facility] CenterComment on above:Performed By: #### [id number] #### [facility] [address] [place] [address] Dr. Les BryanHemoglobin (Bld) [Mass/Vol]13.2 g/iSSusirs73.0-16.0The [facility] CenterComment on above:Performed By: #### [id number] #### [facility] [address] [place] [address] Dr. Les Hudson #0.08 10e3/ulCritically high0.00-0.03The [facility] Comment on above:Performed By: #### [id number] #### [facility] [address] [place] [address] Dr. Les Hudson %0.8 %Critically high0.0-0.5The [facility] CenterComment on above:Performed By: #### [id number] #### [facility] [address] [place] [address] Dr. Les Cheema #3.0 103/ulNormal1.2-3.8The [facility] CenterComment on above:Performed By: #### [id number] #### [facility] [address] [place] [address] Dr. Les Lemushocytes/100 WBC (Bld)31.4 %Qwbjhy40.5-60.0The [facility] CenterComment on above:Performed By: #### [id number] #### [facility] [address] [place] [address] Dr. Les NicholsUAL DIFF REQNONormalThe [facility] CenterComment on above: Performed By: #### [id number] #### [facility] [address] [place] [address] Dr. Les Quinones (RBC) [Entitic mass]30.1 mjDjtuio02.7-34.0The [facility] CenterComment on above:Performed By: #### [id number] #### [facility] [address] [place] [address] Dr. Les Quinones (RBC) [Mass/Vol]33.8 g/bBFssnnl24.9-35.2The [facility] CenterComment on above:Performed By: #### [id number] #### [facility] [address] [place] [address] Dr. Les Valiente (RBC) [Entitic vol]89.1 rQFswesn48.0-99.0The [facility] CenterComment on above:Performed By: #### [id number] #### [facility] [address] [place] [address] Dr. Les Amaya #0.6 103/ulNormal0.3-0.8The [facility] CenterComment on above:Performed By: #### [id number] #### [facility] [address] [place] [address] Dr. Les Howardocytes/100 WBC (Bld)6.1 %Normal1.7-12.0The [facility] Comment on above:Performed By: #### [id number] #### [facility] [address] [place] [address] Dr. Les Dennis #5.6 103/ulNormal1.4-6.5The [facility] CenterComment on above:Performed By: #### [id number] #### [facility] [address] [place] [address] Dr. Les Hellerutrophils/100 WBC (Bld)59.2 %Vzyiwu46.0-75.0The [facility] CenterComment on above:Performed By: #### [id number] #### [facility] [address] [place] [address] Dr. Les Meehanlet mean volume (Bld) [Entitic vol]9.0 fLCritically low 9.5-13.5The [facility] CenterComment on above:Performed By: #### [id number] #### [facility] [address] [place] [address] Dr. Les BryanPLT286 103/hxIevdpx313-009Jwx [facility] CenterComment on above: Performed By: #### [id number] #### [facility] [address] [place] [address] Dr. Les ByranRBC4.39 106/ulNormal4.20-5.40The [facility] CenterComment on above:Performed By: #### [id number] #### [facility] [address] [place] [address] Dr. Les BryanWBC9.5 103/ulNormal4.0-11.0The [facility] CenterComment on above: Performed By: #### [id number] #### [facility] [address] [place] [address] Dr. Les Vigil T3on 95-47-6331QMAI T32.73 pg/mlLNormal2.18-3.98The [facility] CenterComment on above:Performed By: #### RICARDO HOLLOWAY #### [facility] [address] [place] [address] Dr. Les Vigil THYROXINE INDEX T7on 50-17-2632JTQ5.68Snonqi7.30-4.50The [facility] CenterComment on above:Performed By: #### BARBER HOLLOWAYRO #### [facility] [address] [place] [address] Dr. Les BryanT3U31.0 %Frsjds32.0-39.0The [facility] CenterComment on above: Performed By: #### BARBER HOLLOWAYRO #### [facility] [address] [place] [address] Dr. Les BryanT4 [Mass/Vol]6.70 ug/dLNormal4.80-13.90The [facility] Comment on above:Result Comment: T4 testing performed by LabCorpPerformed By: #### RICARDO HOLLOWAY #### [facility] [address] [place] [address] Dr. Les BryanGLYCOHEMOGLOBIN A1Con 88-51-0093BLN RECOMMENDATIONSEE BELOWMercy Health Tiffin HospitalComment on above:Result Comment: ADA RECOMMENDED LIMIT 4.0 - 6.0 ADA THERAPEUTIC TARGET < 7.0 ACTION SUGGESTED > 7.0Performed By: #### [id number] #### [facility] [address] [place] [address] Dr. Les BryanGlucose [Mass/Vol]120 mg/dLNoOhioHealth Grant Medical CenterComment on above:Performed By: #### [id number] #### [facility] [address] [place] [address] Dr. Les BryanHbA1c (Bld) [Mass fraction]5.8 %Normal4.5-6.2The [facility] CenterComment on above:Performed By: #### [id number] #### [facility] [address] [place] [address] Dr. Les Gipson 11-35-0995Nnjx [Mass/Vol]105.0 ug/wVJpdxce65.0-170.0[facility] CampusComment on above:Performed By: #### RICARDO HOLLOWAY #### [facility] [address] [place] [address] Dr. Les BryanLIPID PROFILEon [id number]-HDL RATIO NORMSEE [facility] HospitalComment on above:Result Comment: 3.3 - 4.4 LOW RISK 4.4 - 7.1 AVERAGE RISK 7.1 - 11.0 MODERATE RISK >11.0 HIGH RISKPerformed By: #### BARBER HOLLOWAYRO #### [facility] [address] [place] [address] Dr. Les BryanCholesterol [Mass/Vol]217 mg/dLCritically high<=200The [facility] CenterComment on above:Performed By: #### ERUR, UMICRO #### [facility] [address] [address] [address] Les BryanCholesterol in HDL [Mass/Vol]49 mg/uSBpnqoo41-26Koq [facility] on above:Performed By: #### AMIE UMICRO #### [facility] [address] [place] [address] Dr. Les BryanCholesterol in LDL [Mass/Vol]128.2 mg/dLNoOhioHealth Grant Medical CenterComgarden city hospital on above:Performed By: #### AMIE UMICRO #### [facility] [address] [place] [address] Dr. Les Osborneesterpage.total/Cholesterol in HDL [Mass ratio]4.4 {ratio} NormalThe [facility] CenterComgarden city hospital on above:Performed By: #### AMIE UMICRO #### [facility] [address] [place] [address] Dr. Les Hood NORMAL> or = 60 mg/dl - LOW CARDIOVASCULAR RISK <40 mg/dl - HIGH CARDIOVASCULAR RISKUniversity Hospitals Cleveland Medical CenterComgarden city hospital on above:Performed By: #### AMIE UMICRO #### [facility] [address] [place] [address] Dr. Les Villarreal CALC NORMALSEE BELOWUniversity Hospitals Cleveland Medical CenterComgarden city hospital on above:Result Comment: <100 mg/dl OPTIMAL 100 - 129 mg/dl NEAR OR ABOVE OPTIMAL 130 - 159 mg/dl BORDERLINE HIGH 160 - 189 mg/dl HIGH >190 mg/dl VERY HIGH Performed By: #### AMIE UMICRO #### [facility] [address] [place] [address] Dr. Les BryanTriglyceride [Mass/Vol]199 mg/dLCritically high<=150The [facility] on above:Performed By: #### AMIE UMICRO #### [facility] [address] [place] [address] Dr. Les WaldronLDL CALC39.8 mg/dLNoOhioHealth Grant Medical CenterComment on above: Performed By: #### RICARDO HOLLOWAY #### [facility] [address] [place] [address] Dr. Les Martins 14(COMP METB)on 11-04-4753Rzlrywq [Mass/Vol]3.8 g/dLNormal 3.4-5.0The [facility] CenterComment on above:Performed By: #### AMIE UMICRO #### [facility] [address] [place] [address] Dr. Les BryanAlbumin/Globulin [Mass ratio]0.9 {ratio}NormalThe [facility] CenterComment on above:Performed By: #### AMIE UMDARCIERO #### [facility] [address] [place] [address] Dr. Les Kelly [Catalytic activity/Vol]122 U/LCritically bbon46-885Hyv [facility] CenterComment on above:Performed By: #### BARBER HOLLOWAYRO #### [facility] [address] [place] [address] Dr. Les Singh [Catalytic activity/Vol]90 U/LCritically hxaf18-58Wvl [facility] CenterComment on above:Performed By: #### BARBER HOLLOWAYRO #### [facility] [address] [place] [address] Dr. Les Baez gap [Moles/Vol]13.5 mmol/LNormalThe [facility] Comment on above:Performed By: #### BARBER HOLLOWAYRO #### [facility] [address] [place] [address] Dr. Les BryanAST [Catalytic activity/Vol]63 U/LCritically fyjn97-44Kvc [facility] CenterComment on above:Performed By: #### BARBER HOLLOWAYRO #### [facility] [address] [place] [address] Dr. Les BryanBilirubin [Mass/Vol]0.4 mg/dLNormal0.2-1.0The [facility] Comment on above:Performed By: #### BARBER HOLLOWAYRO #### [facility] [address] [place] [address] Dr. Les BryanCalcium [Mass/Vol]9.3 mg/dLNormal8.5-10.1The [facility] Comment on above:Performed By: #### AMIE UMICRO #### [facility] [address] [place] [address] Dr. Les BryanChloride [Moles/Vol]103 mmol/PIetktf36-470Coy [facility] Comment on above:Performed By: #### AMIE UMICRO #### [facility] [address] [place] [address] Dr. Les BryanCO2 [Moles/Vol]24.6 mmol/JYyormv42.0-32.0The [facility] Comment on above:Performed By: #### AMIE UMICRO #### [facility] [address] [place] [address] Dr. Les BryanCreatinine [Mass/Vol]0.70 mg/dLNormal0.55-1.02The [facility] CenterComment on above:Performed By: #### AMIE UMICRO #### [facility] [address] [place] [address] Dr. Les FryeGFR-AF [place]OOK ISLANDER>60Normal>=60The [facility] CenterComment on above:Performed By: #### AMIE UMICRO #### [facility] [address] [place] [address] Dr. Les FryeGFR-NON AF [place] ISLANDER>60Normal>=60The [facility] CenterComment on above:Performed By: #### AMIE UMICRO #### [facility] [address] [place] [address] Dr. Les BryanGlobulin (S) [Mass/Vol]4.1 g/dLNormalThe [facility] CenterComment on above:Performed By: #### AMIE, UMICRO #### [facility] [address] [place] [address] Dr. Les BryanGlucose [Mass/Vol]110 mg/dLCritically gbxc53-926Tuf [facility] CenterComment on above:Performed By: #### AMIE UMICRO #### [facility] [address] [place] [address] Dr. Les BryanPotassium [Moles/Vol]4.1 mmol/LNormal3.5-5.1The [facility] Comment on above:Performed By: #### AMIE UMICRO #### [facility] [address] [place] [address] Dr. Les BryanProtein [Mass/Vol]7.9 g/dLNormal6.4-8.2The [facility] Comment on above:Performed By: #### AMIE UMICRO #### [facility] [address] [place] [address] Dr. Les BryanSodium [Moles/Vol]137 mmol/KAzqfmh813-322Gmv [facility] Comment on above:Performed By: #### AMIE UMICRO #### [facility] [address] [place] [address] Dr. Les BryanUrea nitrogen [Mass/Vol]9.0 mg/dLNormal7.0-18.0[facility] CampusComment on above:Performed By: #### AMIE UMICRO #### [facility] [address] [place] [address] Dr. Les Lopes nitrogen/Creatinine [Mass ratio]12.9 mg/mgNoOhioHealth Grant Medical CenterComment on above:Performed By: #### BARBER HOLLOWAYRO #### [facility] [address] [place] [address] Dr. Les Reardon 90-00-0945LGE1.572 uIU/mLNormal0.358-3.740[facility] CampusComment on above:Performed By: #### AMIE UMDARCIERO #### [facility] [address] [place] [address] Dr. Les HARMAN BELOWUniversity Hospitals Cleveland Medical CenterComment on above: Result Comment: <0.34 UIU/ml HYPERTHYROID 0.34-5.60 UIU/ml EUTHYROID >5.60 UIU/ml HYPOTHYROIDPerformed By: #### ERUR, UMICRO #### [facility] [address] [address] [address] Les BryanXR KUB 1 VIEWon 79-03-0341JS KUB 1 VIEWEXAMINATION: XR KUB 1 VIEW HISTORY: Kidney stone [...] Electronically authenticated by: AMANDA CASSIDY Date: 2022-02-27 15:05[facility] Medical CenterAMYLASEon 54-51-2017Hzgnzvy [Catalytic activity/Vol]34 U/L Nupsri51-272Ddk [facility] CenterComment on above:Performed By: #### [id number] #### [facility] [address] [address] [address] Les HillC AUTO DIFFon 52-98-2412LVIJ #0.0 103/ulNormal0.0-0.1The [facility] CenterComment on above:Performed By: #### CBC #### [facility] [address] [address] [address] Les BryanBasophils/100 WBC (Bld)0.4 %Normal0.2-2.0The [facility] Comment on above:Performed By: #### CBC #### [facility] [address] [address] [address] Les Esteban #0.3 103/ulNormal0.0-0.7The [facility] Medical CenterComment on above: Performed By: #### CBC #### [facility] [address] [address] [address] Les Fryeosinophils/100 WBC (Bld)3.6 %Normal0.9-7.0The [facility] Comment on above:Performed By: #### CBC #### [facility] [address] [place] [address] Dr. Les Fryerythrocyte distribution width (RBC) [Ratio]13.1 %Wruhur50.0-15.0 [facility] CampusComment on above:Performed By: #### CBC #### [facility] [address] [place] [address] Dr. Les BryanHematocrit (Bld) [Volume fraction]40.6 %Wytega99.0-48.0The [facility] CenterComment on above:Performed By: #### CBC #### [facility] [address] [place] [address] Dr. Les BryanHemoglobin (Bld) [Mass/Vol]13.3 g/vXPpducm13.0-16.0[facility] CampusComment on above:Performed By: #### CBC #### [facility] [address] [place] [address] Dr. Les Hudson #0.06 10e3/ulCritically high0.00-0.03[facility] Comment on above:Performed By: #### CBC #### [facility] [address] [place] [address] Dr. Les Hudson %0.6 %Critically high0.0-0.5The [facility] Medical CenterComment on above:Performed By: #### CBC #### [facility] [address] [place] [address] Dr. Les Cheema #3.6 103/ulNormal1.2-3.8The [facility] Medical CenterComment on above:Performed By: #### CBC #### [facility] [address] [place] [address] Dr. Les Lemushocytes/100 WBC (Bld)38.2 %Sutmrn96.5-60.0[facility] CampusComment on above:Performed By: #### CBC #### [facility] [address] [place] [address] Dr. Yilan ChangMANUAL DIFF REQNONormalThe [facility] Medical CenterComment on above: Performed By: #### CBC #### [facility] [address] [place] [address] Dr. Les Quinones (RBC) [Entitic mass]29.7 ysWksuhw52.7-34.0The [facility] Medical CenterComment on above:Performed By: #### CBC #### [facility] [address] [place] [address] Dr. Les Quinones (RBC) [Mass/Vol]32.8 g/pWAsgnip26.9-35.2The [facility] HospitalComment on above:Performed By: #### CBC #### [facility] [address] [place] [address] Dr. Les Quinones (RBC) [Entitic vol]90.6 oFQubqzt67.0-99.0The [facility] Medical CenterComment on above:Performed By: #### CBC #### [facility] [address] [place] [address] Dr. Les Amaya #0.5 103/ulNormal0.3-0.8The [facility] Medical CenterComment on above:Performed By: #### CBC #### [facility] [address] [place] [address] Dr. Les Howardocytes/100 WBC (Bld)5.4 %Normal1.7-12.0The [facility] Comment on above:Performed By: #### CBC #### [facility] [address] [place] [address] Dr. Les Dennis #4.9 103/ulNormal1.4-6.5The [facility] Medical CenterComment on above:Performed By: #### CBC #### [facility] [address] [place] [address] Dr. Les Hellerutrophils/100 WBC (Bld)51.8 %Esjbcq55.0-75.0The [facility] Medical CenterComment on above:Performed By: #### CBC #### [facility] [address] [place] [address] Dr. Les Cervantes mean volume (Bld) [Entitic vol]9.2 fLCritically low 9.5-13.5The [facility] Medical CenterComment on above:Performed By: #### CBC #### [facility] [address] [place] [address] Dr. Les BryanPLT335 103/fgRzejcq893-676Fxq [facility] CenterComment on above: Performed By: #### CBC #### [facility] [address] [place] [address] Dr. Les BryanRBC4.48 106/ulNormal4.20-5.40The [facility] Medical CenterComment on above:Performed By: #### CBC #### [facility] [address] [place] [address] Dr. Les BryanWBC9.4 103/ulNormal4.0-11.0The [facility] CenterComment on above: Performed By: #### CBC #### [facility] [address] [place] [address] Dr. Les BryanCT ABD/PELVIS WO CONon 77-14-3963BB ABD/PELVIS WO CONEXAM: CT ABD/PELVIS WO CON Comparison: None available. [...] Electronically authenticated by: IWONA BRITT Date: 2022-02-25 19:05[facility] URINE PROFILEon 95-11-4977Jtcntcsfy Ql (U)NegativeNormal NEGATIVESumma Health Akron CampusComment on above:Performed By: #### AMIE UMICRO #### [facility] [address] [place] [address] Dr. Les Loredo (U)CLEARNormalCLEARSumma Health [facility] CampusComment on above: Performed By: #### AMIE UMICRO #### [facility] [address] [place] [address] Dr. Les Live (U)YELLOWNormalYELLOWSumma Health Akron CampusComment on above: Performed By: #### AMIE UMICRO #### [facility] [address] [place] [address] Dr. Les Barnhart micrscopic examination will be performed if indicated. NormalSumma Health Akron CampusComment on above:Performed By: #### ERUR UMICRO #### [facility] [address] [address] [address] Les BryanGlucose Ql (U)NegativeNormalNEGATIVESumma Health [facility] CampusComment on above:Performed By: #### ERUR, UMICRO #### [facility] [address] [place] [address] Dr. Les BryanHemoglobin Ql (U)LARGEAbnormalNEGATIVESumma Health [facility] Comment on above:Performed By: #### AMIE UMICRO #### [facility] [address] [address] [address] Les Mathis Ql (U)NegativeNormalNEGATIVEThe [facility] CenterComment on above:Performed By: #### AMIE UMICRO #### [facility] [address] [address] [address] Les RahmanOCYTESTRACEAbnormalNEGATIVEThe [facility] CenterComment on above:Performed By: #### AMIE UMICRO #### [facility] [address] [address] [address] Les Garcia Ql (U)NegativeNormalNEGATIVESumma Health [facility] CampusComment on above:Performed By: #### AMIE UMICRO #### [facility] [address] [address] [address] Les BryanpH (U)7.0 [pH]Normal5-9The [facility] CenterComment on above: Performed By: #### AMIE UMICRO #### [facility] [address] [address] [address] Les BryanProtein (U) [Mass/Vol]30 mg/dLAbnormalNEGATIVE/ TRACEThe [facility] CenterComment on above:Performed By: #### AMIE UMICRO #### [facility] [address] [address] [address] Les BryanSPEC GRAVITY1.724Jsbqun2.005-<=1.025The [facility] Medical CenterComment on above:Performed By: #### AMIE UMICRO #### [facility] [address] [address] [address] Les Casillas MICRO INDINDICATEDNormalThTrinity Health System Twin City Medical CenterComment on above: Performed By: #### AMIE UMICRO #### [facility] [address] [address] [address] Les Tuckerbilino Qn (U)0.2 {Racquel'U}/dLNormal0.2 - 1.0The [facility] Medical CenterComment on above:Performed By: #### RICARDO HOLLOWAY #### [facility] [address] [place] [address] Dr. Les BryanLIPASEon 28-65-7318Codtec [Catalytic activity/Vol]82.0 U/LNormal 73.0-393.0The [facility] Medical CenterComment on above:Performed By: #### [id number] #### [facility] [address] [place] [address] Dr. Les BryanPROF 14(COMP METB)on 56-64-4653Gzujrqx [Mass/Vol]3.7 g/dLNormal 3.4-5.0The [facility] CenterComment on above:Performed By: #### [id number] #### [facility] [address] [place] [address] Dr. Les BryanAlbumin/Globulin [Mass ratio]0.9 {ratio}NormalThe [facility] Medical CenterComment on above:Performed By: #### [id number] #### [facility] [address] [place] [address] Dr. Les Kelly [Catalytic activity/Vol]129 U/LCritically kliq82-125Qbl [facility] CenterComment on above:Performed By: #### [id number] #### [facility] [address] [place] [address] Dr. Les Singh [Catalytic activity/Vol]86 U/LCritically bsxf32-93Zaa [facility] CenterComment on above:Performed By: #### [id number] #### [facility] [address] [place] [address] Dr. Les Baez gap [Moles/Vol]15.3 mmol/LNormalThe [facility] on above:Performed By: #### [id number] #### [facility] [address] [place] [address] Dr. Les Lopez [Catalytic activity/Vol]51 U/LCritically vwqy60-35Sst [facility] CenterComment on above:Performed By: #### [id number] #### [facility] [address] [address] [address] Les BryanBilirubin [Mass/Vol]0.2 mg/dLNormal0.2-1.0The [facility] Comment on above:Performed By: #### [id number] #### [facility] [address] [address] [address] Les BryanCalcium [Mass/Vol]8.4 mg/dLCritically low8.5-10.1The [facility] Medical CenterComment on above:Performed By: #### [id number] #### [facility] [address] [address] [address] Les BryanChloride [Moles/Vol]103 mmol/GWvjoqf88-727PggSumma Health [facility] Campus Comment on above:Performed By: #### [id number] #### [facility] [address] [place] [address] Dr. Les BryanCO2 [Moles/Vol]26.2 mmol/PTittwq04.0-32.0The [facility] Comment on above:Performed By: #### [id number] #### [facility] [address] [address] [address] Les BryanCreatinine [Mass/Vol]0.72 mg/dLNormal0.55-1.02The [facility] CenterComment on above:Performed By: #### [id number] #### [facility] [address] [place] [address] Dr. Les FryeGFR-AF COOK ISLANDER>60Normal>=60The [facility] Medical CenterComment on above:Performed By: #### [id number] #### [facility] [address] [place] [address] Dr. Les FryeGFR-NON AF COOK ISLANDER>60Normal>=60The [facility] Medical CenterComgarden city hospital on above:Performed By: #### [id number] #### [facility] [address] [place] [address] Dr. Les BryanGlobulin (S) [Mass/Vol]4.2 g/dLNormalThe [facility] CenterComment on above:Performed By: #### [id number] #### [facility] [address] [address] [address] Les BryanGlucose [Mass/Vol]121 mg/dLCritically hfot50-498Zur [facility] CenterComment on above:Performed By: #### [id number] #### [facility] [address] [address] [address] Les BryanPotassium [Moles/Vol]3.5 mmol/LNormal3.5-5.1The [facility] Comment on above:Performed By: #### [id number] #### [facility] [address] [address] [address] Les BryanProtein [Mass/Vol]7.9 g/dLNormal6.1-8.2The [facility] Comment on above:Performed By: #### [id number] #### [facility] [address] [address] [address] Les BryanSodium [Moles/Vol]141 mmol/VGnjmlv828-442Wba [facility] Comment on above:Performed By: #### [id number] #### [facility] [address] [address] [address] Les BryanUrea nitrogen [Mass/Vol]14.0 mg/dLNormal7.0-18.0The [facility] CenterComment on above:Performed By: #### [id number] #### [facility] [address] [address] [address] Les Lopes nitrogen/Creatinine [Mass ratio]19.4 mg/mgNoOhioHealth Grant Medical CenterComment on above:Performed By: #### [id number] #### [facility] [address] [address] [address] Les Edwards MICROSCOPIC ONLYon 65-51-7223QIXSOZABZRTKDNstyufslWGQA SEEN [facility] CampusComment on above:Performed By: #### RICARDO HOLLOWAY #### [facility] [address] [address] [address] Les BryanBactdory identified Cx Nom (U)NOT INDICATEDNormOhio State Health SystemComment on above:Performed By: #### AMIE UMICRO #### [facility] [address] [address] [address] Les Rodriguez SEENNormalNONE SEENAkron Children's Hospital on above:Performed By: #### AMIE UMICRO #### [facility] [address] [address] [address] Les BryanCrystals LM Nom (Urine sed)NONE SEENNormalNONE SEENAkron Children's Hospital on above:Performed By: #### AMIE UMICRO #### [facility] [address] [address] [address] Les Fryepithelial cells LM Ql (Urine sed)MODERATEAbnormalNONE SEEN /RARE The [facility] CenterComgarden city hospital on above:Performed By: #### AMIE UMICRO #### [facility] [address] [address] [address] Les BarberCORL SEENNormalNONE SEENAkron Children's Hospital on above:Performed By: #### AMIE UMICRO #### [facility] [address] [address] [address] Les BryanKnrvhJUZ59-56Igjdzsbs0-6Kpe [facility] on above:Result Comment: crenated RBCsPerformed By: #### AMIE UMICRO #### [facility] [address] [address] [address] Les BryanWBC2-5AbnormalNONE SEENAkron Children's Hospital on above: Performed By: #### AMIE UMICRO #### [facility] [address] [address] [address] Les Bryan Vital Signs Date TimeVital SignValuePerforming TuxscjncbBesswyld74-14-9848 14:40-0500Blood Pressure LocationMicmount graham regional medical centerkristy FR[place] [phone]-IxwgwPromedica Fost[facility] [place] 12-02-2024 14:40-0500Diastolic blood fehgcqbu227 mm[Hg]Jl FREDERICK [phone]-WowzsPromedica Fostoria [facility] [place] 12-02-2024 14:40-0500Heart rate72 /minMichael NILL [phone]-FgeegPromedica Fostoria [facility] [place] 12-02-2024 14:40-0500Respiratory rate16 /minMichael NILL [phone]-EoanhPromedica Fostoria [facility] [place] 12-02-2024 14:40-0500Systolic blood bkvkqsaz288 mm[Hg]Jl NILL [phone]-OkppuKettering Health [facility] [place] 09-13-2023 10:30-0500Body buxuhw563.56 cmAmbjania Love Other [employer] Other 11-16-2023 10:30-0500Body mass index (BMI) [Ratio] 23.14 kg/j2UjoxbShae Love Other [employer] Other 11-16-2023 10:30-0500Body .4 [degF]Shae Love Other [employer] Other 11-16-2023 10:30-0500Body ofwxly05.15 kgShae Love Other [employer] Other 11-16-2023 10:30-0500Respiratory rate18 /minShae Love Other [employer] Other 11-16-2023 10:30-9066HfF1% (BldA) [Mass fraction]99 % Shae Love Other [employer] Other 06-24-2022 09:07-0400Blood Pressure LocationMichael NILL [phone]-RkpzbPromedica Fostoria [facility] [place] 06-24-2022 09:07-0400Diastolic blood mm[Hg] Jl NILL [phone]-ZkghrPromedica Fostoria [facility] [place] 06-24-2022 09:07-0400Heart rate92 /minMichael NILL [phone]-SivqnPromedica Fost[facility] [place] 06-24-2022 09:07-0400Respiratory rate16 /minMichael NILL [phone]-EaklnKettering Health Preble Surgery [place] 06-24-2022 09:07-0400Systolic blood nmelfcee431 mm[Hg] Jl NILL [phone]-XwgeoKettering Health Preble [facility] [place] Encounters Encounter DateEncounter TypeCare ProviderFacilityStart: 01-12-2025 End: 91-55-2020lcnmfauyhbImlwwyGordo Ta DPMFacility:[facility]tart: 12-02-2024 End: 74-91-0971servbsgpkoVanzflq R NILLFacility:[facility] Centertart: 12-02-2024 End: 44-39-9548Roonqww encounter procedureMichael R NILL [phone]-XovrlPromedica Fostoria Community Hospital [facility] [place] Start: 06-12-2024 End: 96-51-7645Rnwjacxcy department patient visitMerBrown Memorial Hospital HospitalStart: 30-00-8725Qnyabv outpatient new 20 minutesShae [facility] Start: 09-13-2023 End: 31-29-2199ovtaiadyxyGydma L KellerNobates county memorial hospital [employer] Other Start: 09-13-2023 End: 18-52-1779Bocrmcm encounter procedureAPRN Shae Love Work Phone: [facility] Work Phone: Start: 10-09-2022 End: 90-93-0978qykavjhqgyWV ANGELICA HOYFacility:S7Ddfek: 09-04-2022 End: 82-37-9822rtnuicubvlND ANGELICA HOYFacility:B8Kqaos: 09-01-2022 End: 35-96-0015qnxdwtyotoZW ANGELICA HOYFacility:U5Dbvkx: 05-30-2022 End: 75-07-2952qbhkmtlaauDU ANGELICA HOYFacility:F0Nevgw: 05-12-2022 End: 30-83-7927Qecuipp encounter procedureMichael R NILL General Surgery Nill/Said [place] Start: 05-03-2022 End: 13-61-8148Igpindi encounter procedureMichael R NILL General Surgery Nill/Said [place] Start: 04-21-2022 End: 29-67-7066Baaxnok encounter procedureMichael R NILL [phone]-FhamiPromedica Fostoria Community Hospital [facility] [place] Start: 92-41-7417zbsvxaoszqWT ANGELICA HOYFacility:H1 Start: 04-17-2022 End: 67-50-6191eagtjlotibFU ANGELICA HOYFacility:E9Gfclb: 04-05-2022 End: 94-23-2100ryxqrpkerxHM ANGELICA HOYFacility:Z9Hozum: 02-27-2022 End: 24-94-0300gkcudlhclhIC ANGELICA HOYFacility:A1Vpgqh: 02-25-2022 End: 38-35-3380anilidniohWKNONG RODRIGUEZFacility:H1 Procedures DateProcedureProcedure DetailPerforming ClinicianStart: 85-84-7028Mxmqzzycrr examination of kneeAPRN Shae Love Work Phone: Start: 71-82-8633Aumgyqzw of dermatofibromaMichael NILL Comment on above:left ankleStart: 07-08-2015 laparoscopic cholecystectomy with intraoperative cholangiogramMichael NILL Abdominal hysterectomyMichael NILL Bilateral complete salpingectomyMichael NILL Diagnostic laparoscopyMichael NILL Loop electrosurgical excision procedureMichael NILL Payers DatePayer CategoryPayerPolicy [id number] [id number] 2.840.1.057516.3.57[id number] 2.840.1.966151.3.57[id number] 2.840.1.859111.3.57[id number] 2.16.840.1.690109.3.57[id number] 2.840.1.481341.3.57[id number] 2.840.1.353732.3.57[id number] 2.840.1.611429.3.57[id number] 2.16.840.1.837087.3.57[id number] 2.16.840.1.248192.3.57[id number] 2.16.840.1.573726.3.57[id number] 2.16.840.1.905216.3.579.2.71129-41-7412Wkte-d[id number] [id number] 2.16.840.1.377249.3.579.2.531 Social History DateTypeDetailFacilityStart: 29-05-5295Zqhjawp smoking statusEx-smoker (finding) [facility] Tobacco smoking statusNeverMet[facility] Sex [facility] Start: 12-70-8718Hgu Assigned At [place]Healthtart: 86-24-7377Rkoltxr smoking statusHeavy tobacco smoker (finding)[facility] Functional Status QumjNixmzzvpkcEybevlEgskajmc57-45-9684Jjiamqnedv StatusN/AFEast [facility]06-24-2022Functional StatusN/[facility] [facility] Clinical Note 12-02-2024 Note Date & [id number] NoteGeneral Surgery Office/Clinic Note Chief Complaint consultation for skin lesion [...] swallowing difficulties, no hearing loss, no ear infection(s),no nose bleeds. 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 Primary malignant neoplasm of bladder: Father.[facility] HospitalComment on above:Result Comment: Electronically Signed By: Jl FREDERICK MD\.br\Date and Time Signed: 12/02/24 15:12 EST Evaluation note 09-13-2023 Note Date & [id number] Evaluation note* Encounter Date Diagnosis Assessment Notes Treatment Notes Treatment Clinical Notes Aug, Injury (ICD-10 - T14.90XA) Aug,Effusion, left knee (ICD-10 - M25.462)Knee effusion home care material was printed XR images and final report reviewed, no acute bony abnormalities. Will send in rx of Medrol dose pack to use as directed. SHASTA wrap applied in office. Encouraged RICEtherapy discussed- rest extremity, avoid excessive or strenuous [...] understanding and is agreeable to treatment plan [facility] Other Evaluation + Plan note Note Date & TypeNoteFacilityEvaluation + Plan note Future Appointments Appointment Date:05/03/2022 03:00:00 PM Scheduled Provider:Jl FREDERICK MD Location:[facility] Appointment Type: Procedure 30 [facility] General Surgery [place] Evaluation + Plan note Note Date & TypeNoteFacilityEvaluation + Plan note Future Appointments Appointment Date:05/12/2022 03:40:00 PM Scheduled Provider:Jl FREDERICK MD Location:[facility] Appointment Type: Post Op 15 General Surgery [place] Evaluation note Note Date & TypeNoteFacilityEvaluation noteNo assessment information available [facility] Work Phone: History general Narrative - Reported Note Date & TypeNoteFacilityHistory general Narrative - Reported* Type Description Date Medical History Anxiety disorder Medical Historychronic depressionMedical HistorythyriodSurgical HistoryLEAP [facility] Other Hospital course Narrative Note Date & TypeNoteFacilityHospital course Narrative No data available for this section [facility] [place] [facility] Discharge instructions Note Date & TypeNoteFacilityHospital Discharge instructions No data available for this section [facility] [place] Progress note Note Date & TypeNoteFacilityProgress note No data available for this section [facility] General Surgery [place] Summary Purpose Family History No Family History [...] section and content) DATE CREATED AUTHOR 10/20/2022 [facility] DATE CREATED AUTHOR AUTHOR'S ORGANIZ ATION 12/07/2023 [facility] DATE CREATED AUTHOR AUTHOR'S ORGANIZ ATION 06/15/2024 [facility] DATE CREATED AUTHOR AUTHOR'S ORGANIZ ATION 12/04/[address] [facility] DATE CREATED AUTHOR AUTHOR'S ORGANIZ ATION 01/25/2025 [facility] REASON FOR VISIT (unrecogniz ed [...] BE BASED ON THE PRIMARY CLINICAL RECORDS. [facility]. provides no warranty or guarantee of the accuracy or completeness of information in this document.
--- OUTSIDE RECORDS SUMMARY | 2025-09-04 23:38 | XMS_ITS | Clinical Summary ---
Author Organization [facility] Healthcare Address [address] [place] [address] Care Team Providers Care Senior Test Analyst Name Role Phone Unavailable Primary Care Provider Unavailabl e Social History Tobacco UseTypesPacks/DayYears UsedDateSmoking Tobacco: Never Assessed CommentsUnknownSex and Gender InformationValueDate RecordedSex Assigned at Not on fileLegal FnlLzfprk75/15/2023 9:30 PM EDTGender IdentityNot on fileSexual OrientationNot on file Last Filed Vital Signs Vital SignReadingTime TakenCommentsBlood Phdbsksl832/8804 12:00 PM EDT Pulse--Temperature--Respiratory Rate--Oxygen Saturation--Inhaled Oxygen Concentration--Zamjzw52.8 kg (145 lb)12/16/2019 12:00 PM YLNGuttqr964 cm (5' 3 ) 12/16/2019 12:00 PM ESTBody Mass Index25.69012/16/2019 12:00 PM EST Plan of Treatment Not on file Insurance
--- OUTSIDE RECORDS SUMMARY | 2025-09-04 23:38 | XMS_ITS | Clinical Summary ---
Author Organization [facility] tem Address [id number] [address] [place] [address] Care Team Providers Care Manager Services Name Role Phone Unavailable Primary Care Provider Unavailabl e Social History Tobacco UseTypesPacks/DayYears UsedDateSmoking Tobacco: Never Assessed CommentsUnknownSex and Gender InformationValueDate RecordedSex Assigned at Not on fileLegal AlqNdyhlo00/10/2022 12:37 PM EDTGender IdentityNot on file Sexual OrientationNot on file Plan of Treatment Health MaintenanceDue DateLast DoneCommentsDepression Qncorvofh38/19/1991Tobacco Vagoswzhs08/19/1991Adult BMI Cwxjyusco31/19/1997DTaP,Tdap and Td Vaccines (1 - Tdap)1998Pap Smear2000Influenza Csbrrxd8006/29/2025 Medical Devices Not on file
--- OUTSIDE RECORDS SUMMARY | 2025-09-04 23:38 | XMS_ITS | Clinical Summary ---
Author Organization [facility] Address [address], [address] [place] [address] Care Team Providers Care Community Service Coordinator Name Role Phone Unavailable Primary Care Provider Unavailabl e Allergies Active AllergyReactionsCriticalityNoted DateComments Sulfamethoxazole-QvmzpmphtbwkOotmmBkwjge77/15/1647IggxuFyuyrSwurdz53/15/2024 Medications MedicationSigDispense QuantityRefillsLast FilledStart DateEnd DateStatus QUEtiapine (SEROQUEL) 100 MG tablet Take 1 tablet by mouth at bedtimeActive hydrOXYzine HCl (ATARAX) 25 MG tablet Take 1 tablet by mouth every 6 hours as needed for AnxietyActive levothyroxine (SYNTHROID) 25 MCG tablet Take 1 tablet by mouth DailyActive desvenlafaxine succinate (PRISTIQ) 100 MG TB24 extended release tablet Take 1 tablet by mouth dailyActive ondansetron (ZOFRAN-ODT) 4 MG disintegrating tablet Take 1 tablet by mouth 3 times daily as needed for Nausea or Vomiting 21 tablet 06/12/2024ctive Active Problems ProblemNoted DateDiagnosed DateExposure to chemical blrsjydz22/15/2024 Social History Tobacco UseTypesPacks/DayYears UsedDateSmoking Tobacco: Every DayCigarettes Smokeless Tobacco: Never Tobacco Cessation:Ready to Q uit: Not Asked; Counseling Given: Not Answered Alcohol UseStandard Drinks/WeekCommentsNot Currently0 (1 standard drink = 0.6 oz pure alcohol)Interpersonal Safety Domain Source: IP Abuse ScreeningAnswerDate RecordedPhysical njoveKkwlhq07/15/2024Verbal zpchgXywbmw63/15/2024Emotional dasvqHivaie60/15/2024Financial zmhutAstlbo12/15/2024Sexual pxuwgUzccpg81/15/2024 CommentsNoSex and Gender InformationValueDate RecordedSex Assigned at BirthNot on fileLegal RpdYdcbqg04/15/2024 11:23 AM EDTGender IdentityNot on file Sexual OrientationNot on file Last Filed Vital Signs Vital SignReadingTime TakenCommentsBlood Beayzkml996/7906/12/2024 1:00 PM EDT Dobjb978306/12/2024 1:00 PM ZDWYhxxwppwcei18.9 ??C (98.4 ??F)06/12/2024 11:30 AM EDTRespiratory Hzdq338906/12/2024 1:00 PM EDTOxygen Ghqncfbpbo196%06/12/2024 12:00 PM EDTInhaled Oxygen Concentration--Jyrcjp35.5 kg (140 lb)06/12/2024 11:30 AM KYBWdjbox003.6 cm (5' 4 )06/12/2024 11:30 AM EDTBody Mass Index24.03006/12/2024 11:30 AM EDT Plan of Treatment Health MaintenanceDue DateLast DoneCommentsDTaP/Tdap/Td vaccine (1 - Tdap) 1998Flu vaccine (#1)05/29/2025OVID-19 Vaccine ( - 2023- season) 2025Polio vaccineAged OutNo longer eligible based on patient's age to complete this topic
--- OUTSIDE RECORDS SUMMARY | 2025-09-04 23:38 | XMS_ITS | Clinical Summary ---
Author Organization [facility] Address [address] [place] [address] Care Team Providers Care Real Estate Job Titles Name Role Phone Unavailable Primary Care Provider Unavailabl e Social History Tobacco UseTypesPacks/DayYears UsedDateSmoking Tobacco: Never AssessedUT Safety & EnvironmentAnswerDate RecordedFear of Current or Ex-PartnerNot on file 12/20/2023Emotionally AbusedNot on file12/20/2023hysically AbusedNot on file 12/20/2023Sexually AbusedNot on file12/20/2023hysically or Sexually AbusedNot on file12/20/2023CommentsUnknownSex and Gender InformationValueDate RecordedSex Assigned at BirthNot on fileLegal AcsSwcipu80/30/2022 12:36 AM EDT Gender IdentityNot on fileSexual OrientationNot on file Plan of Treatment Not on file
[2025-09-04] MEDS: 0.9 % SODIUM CHLORIDE 1,000 ML 999 ML IV (23:59)
[2025-09-05] VITALS (7 sets, daily range): BP systolic 125–144; BP diastolic 78–88; PULSE 78; O2SAT 97–99
[2025-09-05] MEDS: KETOROLAC TROMETHAMINE 30 MG/ML VIAL IVP
[2025-09-05] MEDS: METHYLPREDNISOLONE SOD SUCC PF 125 MG/2 ML VIAL IVP
[2025-09-05 00:08] LABS: Hematocrit 40.5 % (36.0-48.0); Hemoglobin 14.0 g/dL (12.0-16.0); Mean Corpuscular HGB Conc 34.6 g/dL (29.9-35.2); Mean Corpuscular Hemoglobin 30.7 pg (26.7-34.0); Mean Corpuscular Volume 88.8 fL (81.0-99.0); Platelet Count 306 10^3/uL (150-450); Red Blood Count 4.56 10^6/uL (4.20-5.40); White Blood Count 12.3 10^3/uL (4.0-11.0)
--- NOTE | 2025-09-05 00:15 | PC.NURSE ---
this patient awake and alert sitting upright on the bed looking at her cell phone and her boyfriend is sitting in the chair next to the bed(railing down) this patient aware waiting on the test results and this patient voices no concerns, needs and shows no sign of distress
--- NOTE | 2025-09-05 00:20 | XR_ITS ---
[facility] [place] [id number] Patient Name: LUCIA HERNDON MRN: [id number] date: 1980 Sex: F Assigned Patient Location: ER Current Patient Location: Accession/Order Number: [id number] Exam Date: 09/05/2025 00:25 Report Date: 09/05/2025 09:01 At the request of: NIKITA JOHNSON MD Procedure: XR knee LT 3V XR knee LT 3V 09/05/2025 12:31 AM SIGNS AND SYMPTOMS: ^pain PROTOCOL: Frontal, lateral, and sunrise views of the left knee COMPARISON: None FINDINGS: There is mild narrowing of the weightbearing joint space medially. The patellofemoral joint space is preserved. No joint effusion. No soft tissue swelling. No fracture. XR/XR knee LT 3V IMPRESSION: No acute bony injury. Minimal degenerative changes are noted in the medial weightbearing joint space. Impression dictated by: Donato Rockwell M.D. 09/05/2025 9:01 AM Dictation Location: [facility] Electronically authenticated by: [id number] Y Date: 09/05/2025 09:01
[2025-09-05 00:41] LABS: Basophils Abs Manual 0.00 10^3/uL (0.00-0.10); Basophils Percent Manual 0.0 % (0.2-2.0)
[2025-09-05 00:42] LABS: Eosinophils Absolute Manual 0.24 10^3/uL (0.00-0.70); Eosinophils Percent Manual 2.0 % (0.9-7.0); Lymphocytes Absolute Manual 4.92 10^3/uL (1.20-3.80); Lymphocytes Percent Manual 40.0 % (20.5-60.0); Monocytes Absolute Manual 0.61 10^3/uL (0.30-0.80); Monocytes Percent Manual 5.0 % (1.7-12.0)
[2025-09-05 00:43] LABS: Segmented Neut Absolute Manual 6.51 10^3/uL (1.4-6.5); Segmented Neutrophils % Manual 53.0 (43.0-75.0)
--- NOTE | 2025-09-05 00:45 | PC.NURSE ---
this patient awake and alert sitting upright on the bed looking at her cell phone. this patient voices left knee pain has not changed. this patient updated waiting on 1 more blood test result and x-ray results to come back. this patient voices no concerns, needs and shows no signs of distress
[2025-09-05 00:53] LABS: Anion Gap 14.3; Blood Urea Nitrogen 7.0 mg/dL (7.0-18.0); Calcium 9.0 mg/dL (8.5-10.1); Carbon Dioxide 26.2 mmol/L (21.0-32.0); Chloride 105 mmol/L (98-107); Estimated GFR (African America >60 (>=60 mL/min/1.73m^2); Estimated GFR (Non-African Ame >60 (>=60 mL/min/1.73m^2); Glucose 148 mg/dL (74-106); Potassium 3.5 mmol/L (3.5-5.1); Sodium 142 mmol/L (136-145)
--- NOTE | 2025-09-05 01:11 | PC.NURSE ---
this patient updated that we are waiting the x-ray results to come back. this patient voices no concerns needs and shows no signs of distress
--- NOTE | 2025-09-05 03:33 | PC.NURSE ---
i gave this patient verbal and written discharge orders and this patient voices yes to understanding these. at of discharge this patient voices no concerns, or needs and this patient shows no signs of distress. i placed a knee brace on this patient's left knee prior to being discharged
== END 2025-09-05 02:15 | disposition home or self-care (01) ==
PROVIDERS: Emergency Provider Internal Medicine; PCP Family Medicine
DX: M25.562 Pain in left knee (principal)
CPT/HCPCS: 36415; 73562; 80048; 85007; 85027; 85652; 86140; 96374; 96375; 99284; J1885; J2919

== ENCOUNTER 2025-09-07 11:15 | Outpatient (OUT) | payer BC, SELFPAY ==
--- OUTSIDE RECORDS SUMMARY | 2025-09-07 11:19 | XMS_ITS | Clinical Summary ---
Author Organization [facility] Healthcare Address [address] [place] [address] Care Team Providers Care Minute Clerk Name Role Phone Unavailable Primary Care Provider Unavailabl e Social History Tobacco UseTypesPacks/DayYears UsedDateSmoking Tobacco: Never Assessed CommentsUnknownSex and Gender InformationValueDate RecordedSex Assigned at Not on fileLegal UjaOhocyd11/15/2023 9:30 PM EDTGender IdentityNot on fileSexual OrientationNot on file Last Filed Vital Signs Vital SignReadingTime TakenCommentsBlood Cryiyeab900/8804 12:00 PM EDT Pulse--Temperature--Respiratory Rate--Oxygen Saturation--Inhaled Oxygen Concentration--Hfcavc36.8 kg (145 lb)12/16/2019 12:00 PM TXYJzdzun202 cm (5' 3 ) 12/16/2019 12:00 PM ESTBody Mass Index25.69012/16/2019 12:00 PM EST Plan of Treatment Not on file Insurance
--- OUTSIDE RECORDS SUMMARY | 2025-09-07 11:19 | XMS_ITS | Clinical Summary ---
Author Organization [facility] tem Address [id number] [address] [place] [address] Care Team Providers Care Labor/Excavator Name Role Phone Unavailable Primary Care Provider Unavailabl e Social History Tobacco UseTypesPacks/DayYears UsedDateSmoking Tobacco: Never Assessed CommentsUnknownSex and Gender InformationValueDate RecordedSex Assigned at Not on fileLegal BhyFrtztv25/10/2022 12:37 PM EDTGender IdentityNot on file Sexual OrientationNot on file Plan of Treatment Health MaintenanceDue DateLast DoneCommentsDepression Emlkpghlk44/19/1991Tobacco Naxgllsdx08/19/1991Adult BMI Wjbtaxtxo32/19/1997DTaP,Tdap and Td Vaccines (1 - Tdap)1998Pap Smear2000Influenza Jzkvpah0606/29/2025 Medical Devices Not on file
--- OUTSIDE RECORDS SUMMARY | 2025-09-07 11:19 | XMS_ITS | Clinical Summary ---
Author Organization [facility] Address [address], [address] [place] [address] Care Team Providers Care Servicenow Administrator Name Role Phone Unavailable Primary Care Provider Unavailabl e Allergies Active AllergyReactionsCriticalityNoted DateComments Sulfamethoxazole-PzwepigyqyqbNvevzSpgboa40/15/8800KhcwkBedvvTzfvrp52/15/2024 Medications MedicationSigDispense QuantityRefillsLast FilledStart DateEnd DateStatus QUEtiapine [...] Active Problems ProblemNoted DateDiagnosed DateExposure to chemical acagocie76/15/2024 Social History Tobacco UseTypesPacks/DayYears UsedDateSmoking Tobacco: Every DayCigarettes Smokeless Tobacco: Never Tobacco Cessation:Ready to Q uit: Not Asked; Counseling Given: Not Answered Alcohol UseStandard Drinks/WeekCommentsNot Currently0 (1 standard drink = 0.6 oz pure alcohol)Interpersonal Safety Domain Source: IP Abuse ScreeningAnswerDate RecordedPhysical bgwaiAzyuvo59/15/2024Verbal ixxsqZkztwv83/15/2024Emotional ieutaZiomfl65/15/2024Financial djqkcMhhfkd78/15/2024Sexual zroybEoqygr88/15/2024 CommentsNoSex and Gender InformationValueDate RecordedSex Assigned at BirthNot on fileLegal PlnWjmthr44/15/2024 11:23 AM EDTGender IdentityNot on file Sexual OrientationNot on file Last Filed Vital Signs Vital SignReadingTime TakenCommentsBlood Hhqlmlvq133/7906/12/2024 1:00 PM EDT Kenam225306/12/2024 1:00 PM JAOLrkgvvdwcid71.9 ??C (98.4 ??F)06/12/2024 11:30 AM EDTRespiratory Cvip048906/12/2024 1:00 PM EDTOxygen Yuzoiaurvr929%06/12/2024 12:00 PM EDTInhaled Oxygen Concentration--Gjxklf67.5 kg (140 lb)06/12/2024 11:30 AM HSFSwsblh493.6 cm (5' 4 )06/12/2024 11:30 AM EDTBody Mass Index24.03006/12/2024 11:30 AM EDT Plan of Treatment Health MaintenanceDue DateLast DoneCommentsDTaP/Tdap/Td vaccine (1 - Tdap) 1998Flu vaccine (#1)05/29/2025OVID-19 Vaccine ( - 2023- season) 2025Polio vaccineAged OutNo longer eligible based on patient's age to complete this topic
--- OUTSIDE RECORDS SUMMARY | 2025-09-07 11:19 | XMS_ITS | Clinical Summary ---
Author Organization [facility] Address [address] [place] [address] Care Team Providers Care Rippler Name Role Phone Unavailable Primary Care Provider Unavailabl e Social History Tobacco UseTypesPacks/DayYears UsedDateSmoking Tobacco: Never AssessedUT Safety & EnvironmentAnswerDate RecordedFear of Current or Ex-PartnerNot on file 12/20/2023Emotionally AbusedNot on file12/20/2023hysically AbusedNot on file 12/20/2023Sexually AbusedNot on file12/20/2023hysically or Sexually AbusedNot on file12/20/2023CommentsUnknownSex and Gender InformationValueDate RecordedSex Assigned at BirthNot on fileLegal SloPcfnow33/30/2022 12:36 AM EDT Gender IdentityNot on fileSexual OrientationNot on file Plan of Treatment Not on file
--- OUTSIDE RECORDS SUMMARY | 2025-09-07 11:20 | XMS_ITS | CCD ---
Author Organization [facility] Care Team Providers Care Credentialing Manager Name Role Phone Angelica Veronica Primary Care [...] Consulting Unavailable JEREMÍAS, DR DOMINGUEZ Attending Unavailable JREEMÍAS, DR DOMINGUEZ Admitting Unavailable KHANH, DR AMANDA Nieves Consulting Unavailable Shae Love Unavailable RUBY Love Attending Provider Shae Love Attending Unavailable Shae Love Admitting Unavailable Jl FREDERICK Attending Unavailable Corky Ta DPM Attending Unava ilable Allergies Allergy ClassificationReported Allergen(s)Allergy TypeDate of OnsetReaction(s) Facility (7 sources)Latex; Translations: [Latex]Drug dcizaqu33-22-4634Lwbfpltu of skin (disorder), [facility] [place] (6 sources)Sulfamethoxazole / Trimethoprim; Translations: [sulfamethoxazole-trimethoprim]Drug AllergyWeal (disorder), [facility] (2 sources)natural latex rubberDrug allergy (disorder)[facility] (2 sources)Sulfamethoxazole / TrimethoprimDrug AllergyThe [facility] (1 source)SulfamethoxazoleDrug Thmvcbf15-69-7195AtjlcswyuSouth[facility] (1 source)TrimethoprimDrug Nxmtcgl76-17-0942LqqrvjwzcSouthwest General Health Center Repository Medications Current Medications MedicationDrug Class(es)DatesSig (Normalized)Sig (Original)24 hr desvenlafaxine succinate 100 mg extended release oral tablet (5 sources)Serotonin and Norepinephrine Reuptake InhibitorStart: 87-77-5155ndyc 1 tablet by mouth once dailydesvenlafaxine 100 mg Tab- 100 mg = 1 tab(s), Oral, Daily, Refills(s) 0 Start Date: 04/14/22 Status:OrderedStart: 57-18-9793xcih 1 tablet by mouth once dailydesvenlafaxine 100 mg Tab- 100 mg = 1 tab(s), Oral, Daily, Refills(s) 0 Start Date: 04/14/22 Status:OrderedDesvenlafaxine ER 100mg Activediclofenac sodium 75 mg delayed release oral tablet (4 sources)Nonsteroidal Anti-inflammatory DrugStart: 96-89-5434xmco 1 tablet by mouth twice dailydiclofenac sodium 75 mg Oral EC Tab 75 mg = 1 tab(s), Oral, BID, Refills(s) 0 Start Date: 04/14/22 Status: OrderedhydrOXYzine pamoate 25 mg oral capsule (5 sources)AntihistamineStart: 73-68-7835tcdh 1 capsule by mouth four times daily as needed for anxietyhydrOXYzine pamoate 25 mg Cap 25 mg = 1 cap(s), Oral, QID, PRN as needed for anxiety, Refills(s) 0 Start Date: 04/14/22 Status: OrderedVistaril prn, takes at least QD Activelevothyroxine sodium 0.075 mg oral tablet (2 sources)l-ThyroxineStart: 35-91-2066kuaz 1 tablet by mouth once daily levothyroxine 75 mcg (0.075 mg) Tab 75 mcg = 1 tab(s), Oral, Daily, Refills(s) 0 Start Date: 11/28/24 Status: OrderedLevothyroxine Sodium Not-Taking methylPREDNISolone 4 mg oral tablet (1 source)CorticosteroidStart: 08-00-5829fdpvtlHARBJZHbsbpy 4 MG as directed Orally for daily dose take half with breakfast, half with dinner for 6 days Aug, Activepantoprazole 40 mg delayed release oral tablet (5 sources)Proton Pump InhibitorStart: 73-11-4538patq 1 tablet by mouth once dailyProtonix 40 mg Tab-DR 40 mg = 1 tab(s), Oral, Daily, Refills(s) 0 Start Date: 04/14/22 Status: OrderedQUEtiapine 100 mg oral tablet (5 sources)Atypical AntipsychoticStart: 40-55-8436deal 1 tablet by mouth at bedtimequetiapine 100 mg Tab 100 mg = 1 tab(s), Oral, Bedtime, Refills(s) 0 Start Date: 11/28/24 Status: OrderedStart: 84-50-8146ppnu 1 tablet by mouth once dailySEROquel 25 [...] Zoster Virus Nucleoside Analog DNA Polymerase InhibitorStart: 28-51-2940utcf 1 tablet by mouth once dailyvalacyclovir 500 mg Tab 500 mg = 1 tab(s), Oral, Daily, Refills(s) 0 Start Date: 04/14/22 Status: OrderedvalACYclovir HCl Active Completed/Discontinued Medications MedicationDrug Class(es)DatesSig (Normalized)Sig (Original)[place] (1 source)[place] Not-Taking Problems Active Problems Problem ClassificationProblemDateDocumented DateEpisodic/ChronicAnxiety disorders (9 sources)Anxiety; Translations: [Anxiety disorder, unspecified]Onset: 137806-20-6165ApykngtXisvpixm of urinary tract (10 sources)History of calculus of kidney; Translations: [Calculus of kidney] Onset: 969182-43-7107DdgodzplJeifehukij heart failure; nonhypertensive (1 source)Unspecified diastolic (congestive) heart failure; Translations: [UNSPECIFIED DIASTOLIC HEART FAILURE]Onset: 64-79-1565IuevlypSbcoyxboamkjn (4 sources)Endometriosis (clinical)33-86-2295VrnqagrFnlcubspp hypertension (4 sources)Hypertensive hoxonbpg29-01-9963CdbhvrkCsmmfoqh; including migraine (4 sources)Pjetlxef91-67-1708BuwbbikMujxwslsmzip with complications and secondary hypertension (1 source)Hypertensive heart disease with heart failure; Translations: [HTN HEART DISEASE W/HEART FAIL]Onset: 78-72-3452KicjudaKfdytrhdq of unspecified nature or uncertain behavior (5 sources)Neoplasm of uncertain behavior of skin; Translations: [Neoplasm of uncertain behavior of skin]Onset: 93-63-8227FqdzgtlsHolfr and unspecified benign neoplasm (3 sources)Benign neoplasm of skin of lower limb; Translations: [Other benign neoplasm of skin of unspecified lower limb, including hip]Onset: 05-12-2022 EpisodicOther gastrointestinal disorders (4 sources)History of -62-7072HnmgvdkkCagei inflammatory condition of skin (4 sources)Ctkmspyhl72-21-3596PjkgoljDgyyu injuries and conditions due to external causes (1 source)Injury, unspecified, initial encounterEpisodicOther non-traumatic joint disorders (1 source)Effusion, left kneeEpisodicOther nutritional; endocrine; and metabolic disorders (3 sources)Body mass index 25-29 - dasjumghmn40-79-4745IdtpuopdLafyi nutritional; endocrine; and metabolic disorders (1 source)Wmdogjhbjh65-19-0493MhgsrjaeOcyxg nutritional; endocrine; and metabolic disorders (1 source)Overweight in adulthood with body mass index of 25 or more but less than 0506-44-4045TigstoagRregy screening for suspected conditions (not mental disorders or infectious disease) (6 sources)Encounter for screening mammogram for malignant neoplasm of breast; Translations: [Encounter for screening for malignant neoplasm of cervix]Onset: 82-42-7906ApmkszzjOxhmz skin disorders (4 sources)Localized swelling, mass and lump, trunk; Translations: [LOCALIZD SWELLING MASS AND LUMP TRUNK]Onset: 18-87-7440OlmdehrrNdmfq skin disorders (1 source)Mass of subcutaneous tissue of left lower limb; Translations: [Localized swelling, mass and lump, left lower limb]Onset: 24-21-2030Oqkuaxhp Other skin disorders (1 source)Nodule of subcutaneous tissue of left lower mmgj30-07-7283Nckwdpld Pneumonia (except that caused by tuberculosis or sexually transmitted disease) (4 sources)Pneumonia, unspecified organism; Translations: [PNEUMONIA UNSPECIFIED ORGANISM]Onset: 53-23-7351PxbwjxxgDcscmedi codes; unclassified (1 source)Family history of malignant neoplasm of bladder; Translations: [FAM HX MALIGNANT NEOPLASM BLADDER]Onset: 79-75-4161VbrflcesMzxddmil codes; unclassified (1 source)Family history of malignant neoplasm of breast; Translations: [FAMILY HX MALIG NEOPLASM OF BREAST]Onset: 77-25-7572TacbnefdSyrnaucz codes; unclassified (1 source)Contact with and (suspected) exposure to other hazardous, chiefly nonmedicinal, chemicals; Translations: [Contact with and (suspected) exposure to other hazardous, chiefly nonmedicinal, chemicals]Onset: 13-72-2043Nhwotfsl Residual codes; unclassified (1 source)Tobacco tsno31-62-8165RaknmdfaKeqlszr disorders (4 sources)Rucssdlmdlbtox15-41-4073ZnqrnxuGozutuutpctl (1 source)CONTACT W/AND (SUSP) EXPOS COVID-19; Translations: [CONTACT W/AND (SUSP) EXPOS COVID-19]Onset: 71-25-1481Crcqkqlypokq (1 source)Effusion, left knee; Translations: [Effusion, left knee]Onset: 09-13-2023 Past or Other Problems Problem ClassificationProblemDateDocumented DateEpisodic/ChronicAbdominal pain (3 sources)Unspecified abdominal pain; Translations: [UNSPECIFIED ABDOMINAL PAIN]Onset: 89-73-5714PnunfdshPbdmhoojxa and other anemia (1 source)Anemia, unspecified; Translations: [ANEMIA UNSPECIFIED]Onset: 06-52-5592ZlormyfuQtpfypzq mellitus without complication (1 source)Other abnormal glucose; Translations: [OTHER ABNORMAL GLUCOSE]Onset: 66-55-7887DyfesjwmJzimciykmfeqy symptoms and ill-defined conditions (1 source)Hematuria, unspecified; Translations: [HEMATURIA UNSPECIFIED]Onset: 51-58-6868HahlxnrwHfqpbqrkmyozp and screening for infectious disease (1 source)Encounter for screening for human papillomavirus (HPV); Translations: [ENC SCREENING HUMAN PAPILLOMAVIRUS]Onset: 06-77-3946WrwvatjuHbyia diseases of kidney and ureters (1 source)Hydronephrosis with renal and ureteral calculous obstruction; Translations: [HYDRONPHROS RENL AND URETRL CALCUL OBST]Onset: 39-69-9657Vkhvlmcd Other lower respiratory disease (5 sources)Dyspnea, unspecified; Translations: [DYSPNEA UNSPECIFIED]Onset: 53-85-1575QcfeorcaAjmndxto codes; unclassified (1 source)Acquired absence of other specified parts of digestive tract; Translations: [ACQ ABSENCE OTH PART DIGESTV TRACT]Onset: 89-38-2938Fjsshaec Residual codes; unclassified (1 source)Acquired absence of both cervix and uterus; Translations: [ACQUIRED ABSENCE BOTH CERVIX AND UTERUS]Onset: 78-83-0505Mkmkkdof Results Test NameValueInterpretationReference RangeFacilityC ANAon 01-15-2025 AYAD Final No anaerobic growth after 72 hrs.[facility] InstituteComment on above:Performed By: #### ANAC #### [facility] [address] [place] [id number] Woundon 01-14-2025 Wound Final No growth at 48 hours.[facility] InstituteComment on above: Performed By: #### WDC #### [facility] [address] [place] [id number] Trackon 88-56-8321Opehyqifn Received FromBrown Memorial HospitalComschoolcraft memorial hospital on above:Performed By: #### Outreach Tracking Order #### [address] [address]Djpxidjatk Visit Summaryon 61-67-5902Mqbalixtrl Visit Summary Ambulatory Visit Summary JOSEPHINE JANG [...] you for choosing us for your care. [facility] CampusDrugs of Abuse, S/Jm 06-14-2024 Amphetamines, S/PNegativeNormalCutoff [address] [place], [place] [address]Comment on above: Performed By: #### ADAU9S #### [facility] [address] [place] [address] Shank Inspector: Trey Carroll MD #### CP, CDP, MG #### [facility] [address] [place] [address] Shank Inspector: Belia Sturtz, MDBarbiturates, S/PNegativeNormalCutoff 50[facility] HospitalComment on above:Performed By: #### ADAU9S #### [facility] [address] [place] [address] Shank Inspector: Trey Carroll MD #### CP, CDP, MG #### [facility] [address] [place] [address] Shank Inspector: Belia Manjarrez MDBenzodiazepines, S/PNegativeNormalCutoff 50[facility] HospitalComment on above:Performed By: #### ADAU9S #### [facility] [address] [place] [address] Shank Inspector: Trey Carroll MD #### CP, CDP, MG #### [facility] [address] [place] [address] Shank Inspector: Belia Manjarrez MDBuprenorphine, S/PNegativeNormalCutoff [address] [place] [address] HospitalComment on above:Performed By: #### ADAU9S #### [facility] [address] [place] [address] Shank Inspector: Trey Carroll MD #### CP, CDP, MG #### [facility] [address] [place] [address] Shank Inspector: JUAN MIGUEL Anguianoocaine, Serum/PlasNegativeNormalCutoff 20[facility] HospitalComment on above:Performed By: #### ADAU9S #### [facility] [address] [place] [address] Shank Inspector: Trey Carroll MD #### CP, CDP, MG #### [facility] [address] [place] [address] Shank Inspector: JUAN MIGUEL AnguianoommentSee NoteNormalAultman Hospital HospitalComment on above:Result Comment: (NOTE) INTERPRETIVE [...] developed and its performance characteristics determined by [facility]. It has not been cleared or approved by the [place] Food and Drug Administration. This test was performed in a CLIA certified laboratory and is intended for clinical purposes. Performed By: [facility] [address] [place] [address] Biological Inspector: Trace Vazquez MD, PhD [place] Number: [id number] By: #### ADAU9S #### [facility] [address] [id number] Shank Inspector: Trey Carroll MD #### MARITZA ROMERO, MG #### [address] [place] [address] Shank Inspector: DIANA Anguianoethadone, S/PNegativeNormalCutoff [address] [place], [place] [address]Comment on above:Performed By: #### ADAU9S #### [facility] [address] [place] [id number] Shank Inspector: Trey Carroll MD #### MARITZA ROMERO, MG #### [address] [place] [address] Shank Inspector: DIANA Anguianoethamphetamine,S/PNegativeNormalCutoff [address] [place], [place] [address]Comment on above:Performed By: #### ADAU9S #### [facility] [address] [place] [address] Shank Inspector: Trey Carroll MD #### CP, CDP, MG #### [facility] [address] [place] [address] [place] [address] Shank Inspector: Belia Manjarrez MDUnited Health Services, Serum/PlasNegativeNormalCutoff [address] [place], [place] [address]Comment on above:Performed By: #### ADAU9S #### [facility] [address] [place], [place] [id number] Shank Inspector: Trey Carroll MD #### CP, CDP, MG #### [facility] [address] [place] [address] [place] [address] Shank Inspector: Belia Manjarrez MDOxycodone, S/PNegativeNormalCutoff [address] [place], [place] [address]Comment on above:Performed By: #### ADAU9S #### [facility] [address] [place], [place] [id number] Shank Inspector: Trey Carroll MD #### CP, CDP, MG #### [facility] [address] [place] [address] [place] [address] Shank Inspector: Isadora Anguianoidine, S/PNegativeNormalCutoff [address] [place], [place] [address]Comschool[facility] memorial hospital on above:Performed By: #### ADAU9S #### [facility] [address] [place], [place] [id number] Shank Inspector: Trey Carroll MD #### CP, CDP, MG #### [facility] [address] [place] [address] [place] [address] Shank Inspector: Belia Manjarrez MDDAYTON [facility], Serum/PlasmaNegativeNormalCutoff 20[facility] HospitalComment on above:Performed By: #### ADAU9S #### [facility] [address] [place] [address] Shank Inspector: Trey Carroll MD #### CP, CDP, MG #### [facility] [address] [place] [address] [place] [address] Shank Inspector: JUAN MIGUEL Anguiano with Diffon 22-43-1463Cdp. Basophil0.04 k/uL Normal0.00-0.20[facility] HospitalComment on above:Performed By: #### ADAU9S #### [facility] [address] [place] [address] Shank Inspector: Trey Carroll MD #### HEATHER, CDP, MG #### [address] [place], [place] [address] Shank Inspector: Sarah Anguiano.Imm.Granulocyte0.06 k/uLNormal0.00-0.30[facility] HospitalComment on above:Performed By: #### ADAU9S #### [facility] [address] [place] [address] Shank Inspector: Trey Carroll MD #### HEATHER, CDP, MG #### [address] [place], [place] [address] Shank Inspector: Sarah Anguiano.Neutrophil (Seg)6.02 k/uLNormal1.50-8.10[facility] HospitalComment on above:Performed By: #### ADAU9S #### [facility] [address] [place] [address] Shank Inspector: Trey Carroll MD #### CP, CDP, MG #### [facility] [address] [place] [address] [place] [place], [place] [id number] Shank Inspector: Belia Manjarrez MDBasophils/100 WBC (Bld)0 %Normal0-2[facility] HospitalComment on above:Performed By: #### ADAU9S #### [facility] [address] [place] [address] Shank Inspector: Trey Carroll MD #### CP, CDP, MG #### [facility] [address] [place] [address] [place] [address] Shank Inspector: Belia Manjarrez MDEosinophils (Bld) [#/Vol]0.16 10*3/uLNormal 0.00-0.44[facility] HospitalComment on above:Performed By: #### ADAU9S #### [facility] [address] [place] [address] Shank Inspector: Trey Carroll MD #### CP, CDP, MG #### [address] [place] [id number] Shank Inspector: Belia Manjarrez MDEosinophils/100 WBC (Bld)2 %Normal1-4[facility] HospitalComment on above:Performed By: #### ADAU9S #### [facility] [address] [place] [address] Shank Inspector: Trey Carroll MD #### CP, CDP, MG #### [address] [place] [id number] Shank Inspector: Belia Manjarrez MDErythrocyte distribution width (RBC) [Ratio]13.3 % Mwumpw17.8-14.4[facility] HospitalComment on above:Performed By: #### ADAU9S #### [facility] [address] [place], [place] [id number] Shank Inspector: Trey Carroll MD #### CP, CDP, MG #### [address] [place] [address] Shank Inspector: Belia Manjarrez MDHematocrit (Bld) [Volume fraction]41.0 %Normal 36.3-47.1MVan [facility]ert County Hospital HospitalComment on above:Performed By: #### ADAU9S #### [facility] [address] [place] [address] Shank Inspector: Trey Carroll MD #### CP, CDP, MG #### [address] [place] [address] Shank Inspector: Belia Manjarrez MDHemoglobin (Bld) [Mass/Vol]14.1 g/dLNormal 11.9-15.1Mtrumbull memorial hospitaly [facility] HospitalComment on above:Performed By: #### ADAU9S #### [facility] [address] [place] [address] Shank Inspector: Trey Carroll MD #### CP, CDP, MG #### [address] [place] [address] Shank Inspector: Belia Manjarrez MDImmature granulocytes/100 WBC (Bld)1 %Xtog6GoshqDayton Children'S HospitalComment on above:Performed By: #### ADAU9S #### [facility] [address] [place] [address] Shank Inspector: Trey Carroll MD #### CP, CDP, MG #### [address] [place] [address] Shank Inspector: Belia Manjarrez MDLymphocytes (Bld) [#/Vol]3.39 10*3/uLNormal 1.10-3.70[facility] HospitalComment on above:Performed By: #### ADAU9S #### [facility] [address] [place] [address] Shank Inspector: Trey Carroll MD #### CP, CDP, MG #### [address] [place] [address] Shank Inspector: Belia Manjarrez MDLymphocytes/100 WBC (Bld)33 %Amnyms74-44WxmrkDayton Children'S HospitalComment on above:Performed By: #### ADAU9S #### [facility] [address] [place] [address] Shank Inspector: Trey Carroll MD #### CP, CDP, MG #### [address] [place] [address] Shank Inspector: DIANA AnguianoCH (RBC) [Entitic mass]30.9 vfSunnox08.2-33.5 [facility] HospitalComment on above:Performed By: #### JEU9S #### [facility] [address] [place], [place] [id number] Shank Inspector: Trey Carroll MD #### HEATHER CDP, MG #### [address] [place] [address] Shank Inspector: PILLO AnguianoC (RBC) [Mass/Vol]34.4 g/aJSxyhxj17.4-34.8[facility] HospitalComment on above:Performed By: #### ADAU9S #### [facility] [address] [place], [place] [address] Shank Inspector: Trey Carroll MD #### HEATHER, CDP, MG #### [address] [place] [address] Shank Inspector: DIANA AnguianoCV (RBC) [Entitic vol]89.9 oNUdvuyu30.6-102.9 [facility] HospitalComment on above:Performed By: #### ADAU9S #### [facility] [address] [place], [place] [id number] Shank Inspector: Trey Carroll MD #### HEATHER, CDP, MG #### [address] [place], [place] [address] Shank Inspector: Belia Manjarrez MDMonocytes (Bld) [#/Vol]0.67 10*3/uLNormal0.10-1.20 [facility] HospitalComment on above:Performed By: #### ADAU9S #### [facility] [address] [place] [address] Shank Inspector: Trey Carroll MD #### CP, CDP, MG #### [address] [place], [place] [address] Shank Inspector: Belia Manjarrez MDMonocytes/100 WBC (Bld)7 %Normal3-12[facility] HospitalComment on above:Performed By: #### ADAU9S #### [facility] [address] [place] [address] Shank Inspector: Trey Carroll MD #### CP, CDP, MG #### [address] [place] [address] Shank Inspector: Belia Manjarrez MDNeutrophil (Seg)57 %Vfizru22-63VbjueDayton Children'S HospitalComment on above:Performed By: #### ADAU9S #### [facility] [address] [place] [address] Shank Inspector: Trey Carroll MD #### CP, CDP, MG #### [address] [place] [address] Shank Inspector: Belia Manjarrez MDNRBC Automated0.0 per 100 WBCNormal0.0[facility] HospitalComment on above:Performed By: #### ADAU9S #### [facility] [address] [place] [address] Shank Inspector: Trey Carroll MD #### CP, CDP, MG #### [address] [place], [place] [address] Shank Inspector: Salvador Anguiano mean volume (Bld) [Entitic vol]9.6 fL Normal8.1-13.5[facility] HospitalComment on above:Performed By: #### ADAU9S #### [facility] [address] [place] [address] Shank Inspector: Trey Carroll MD #### HEATHER, CDP, MG #### [address] [place] [address] Shank Inspector: Diane Anguiano (Bld) [#/Vol]314 10*3/dVWvivdi142-933 [facility] HospitalComment on above:Performed By: #### ADAU9S #### [facility] [address] [place] [address] Shank Inspector: Trey Carroll MD #### MARITZA ROMERO, MG #### [address] [place] [address] Shank Inspector: BETTY AnguianoBC (Bld) [#/Vol]4.56 10*6/uLNormal3.95-5.11[facility] HospitalComment on above:Performed By: #### ADAU9S #### [facility] [address] [place] [address] Shank Inspector: Trey Carroll MD #### HEATHER, CDP, MG #### [address] [place] [address] Shank Inspector: Belia Manjarrez MDWBC (Bld) [#/Vol]10.3 10*3/uLNormal3.5-11.3MMedina HospitalComment on above:Performed By: #### ADAU9S #### [facility] [address] [place] [address] Shank Inspector: Trey Carroll MD #### CP, CDP, MG #### [facility] [address] [place] [address] Shank Inspector: JUAN MIGUEL Anguianoomp Metabolic Profon 93-01-2975Rzoowvk [Mass/Vol] 4.4 g/dLNormal3.5-5.2[facility] HospitalComment on above:Performed By: #### ADAU9S #### [facility] [address] [place] [address] Shank Inspector: Trey Carroll MD #### CP, CDP, MG #### [facility] [address] [place] [address] Shank Inspector: Belia Manjarrez MDAlbumin/Glob Ratio1.3Celtvw3.0-2.5[facility] HospitalComment on above:Performed By: #### ADAU9S #### [facility] [address] [place] [address] Shank Inspector: Trey Carroll MD #### CP, CDP, MG #### [facility] [address] [place] [address] Shank Inspector: Venancio Anguiano Optd957 U/KPumd00-194ZcjegDayton Children'S HospitalComment on above:Performed By: #### ADAU9S #### [facility] [address] [place] [address] Shank Inspector: Trey Carroll MD #### CP, CDP, MG #### [facility] [address] [place] [address] Shank Inspector: Belia Manjarrez MDALT [Catalytic activity/Vol]46 U/LHigh5-33[facility]S HospitalComment on above:Performed By: #### ADAU9S #### [facility] [address] [place] [address] Shank Inspector: Trey Carroll MD #### CP, CDP, MG #### [facility] [address] [place] [address] Shank Inspector: Raquel Anguiano gap [Moles/Vol]10 mmol/LNormal9-17[facility] HospitalComment on above:Performed By: #### ADAU9S #### [facility] [address] [place] [address] Shank Inspector: Trey Carroll MD #### CP, CDP, MG #### [facility] [address] [place] [address] Shank Inspector: SAY Anguiano [Catalytic activity/Vol]32 U/LHigh<32[facility] HospitalComment on above:Performed By: #### ADAU9S #### [facility] [address] [place] [address] Shank Inspector: Trey Carroll MD #### HEATHER, CDP, MG #### [facility] [address] [place] [address] Shank Inspector: Belia Manjarrez MDBilirubin [Mass/Vol]0.4 mg/dLNormal0.3-1.2Mtrumbull memorial hospitaly Hospital For Special CareComment on above:Performed By: #### ADAU9S #### [facility] [address] [place] [address] Shank Inspector: Trey Carroll MD #### HEATHER, CDP, MG #### [facility] [address] [place] [address] Shank Inspector: Belia Manjarrez MDBUN/CRE Zjlvh99Rcdvbs9-65Omhbj [facility] Comment on above:Performed By: #### ADAU9S #### [facility] [address] [place] [address] Shank Inspector: Trey Carroll MD #### CP, CDP, MG #### [facility] [address] [place] [address] [place] [address] Shank Inspector: JUAN MIGUEL Anguianoalcium [Mass/Vol]9.1 mg/dLNormal8.6-10.4[facility] HospitalComment on above:Performed By: #### ADAU9S #### [facility] [address] [place] [address] Shank Inspector: Trey Carroll MD #### CP, CDP, MG #### [address] [place] [address] Shank Inspector: JUAN MIGUEL Anguianohloride [Moles/Vol]106 mmol/LIykmqf40-486LufvqDayton Children'S HospitalComment on above:Performed By: #### ADAU9S #### [facility] [address] [place], [place] [id number] Shank Inspector: Trey Carroll MD #### HEATHER, CDP, MG #### [address] [place] [address] Shank Inspector: JUAN MIGUEL AnguianoO2 [Moles/Vol]26 mmol/OKhmibd57-59YgkqpDayton Children'S HospitalComment on above:Performed By: #### ADAU9S #### [facility] [address] [place] [address] Shank Inspector: Trey Carroll MD #### CP, CDP, MG #### [address] [place] [address] Shank Inspector: JUAN MIGUEL Anguianoreatinine [Mass/Vol]0.5 mg/dLNormal0.5-0.9[facility] HospitalComment on above:Performed By: #### ADAU9S #### [facility] [address] [place] [address] Shank Inspector: Trey Carroll MD #### CP, CDP, MG #### [address] [place] [address] Shank Inspector: Belia Manjarrez MDGFR/1.73 sq M.predicted among non-blacks MDRD (S/P/Bld) [Vol rate/Area]mL/min/{1.73_m2}Normal>60[facility] For Special CareComment on above:Result Comment: These results are not [...] secretion.Performed By: #### JEU9S #### [facility] [address] [place] [address] Shank Inspector: Trey Carroll MD #### MARITZA ROMERO, MG #### [address] [place] [address] Shank Inspector: Belia Manjarrez MDGlucose [Mass/Vol]90 mg/eIBhshzc92-87XqflpMedina HospitalComment on above:Performed By: #### ADAU9S #### [facility] [address] [place] [address] Shank Inspector: Trey Carroll MD #### MARITZA ROMERO, MG #### [address] [place] [address] Shank Inspector: FRANKLIN Anguianootassium [Moles/Vol]4.2 mmol/LNormal3.7-5.3Mtrumbull memorial hospitaly Hospital For Special CareComment on above:Performed By: #### ADAU9S #### [facility] [address] [place] [address] Shank Inspector: Trey Carroll MD #### HEATHER CDP, MG #### [facility] [address] [place] [address] [place] [address] Shank Inspector: FRANKLIN Anguianorotein [Mass/Vol]7.4 g/dLNormal6.4-8.3[facility] HospitalComment on above:Performed By: #### ADAU9S #### [facility] [address] [place], [place] [id number] Shank Inspector: Trey Carroll MD #### CP, CDP, MG #### [address] [place] [address] Shank Inspector: JANE Anguianoodium [Moles/Vol]142 mmol/QYmrcvp892-534Klkne [facility] Heights HospitalComment on above:Performed By: #### ADAU9S #### [facility] [address] [place] [address] Shank Inspector: Trey Carroll MD #### CP, CDP, MG #### [address] [place] [address] Shank Inspector: Belia Manjarrez MDUrea nitrogen [Mass/Vol]6 mg/dLNormal6-20[facility] HospitalComment on above:Performed By: #### ADAU9S #### [facility] [address] [place] [address] Shank Inspector: Trey Carroll MD #### CP, CDP, MG #### [address] [place] [address] Shank Inspector: RENARD Anguianorug Scr, Abuse, Uron 74-43-2479Raeeyfhdptg(s),Ur NegativeNormalNEGMercy Jackson Heights HospitalComment on above:Result Comment: (Positive cutoff 1000 ng/mL)Performed By: #### RAHUL #### [address] [place] [address] Shank Inspector: Belia Manjarrez MDBarbiturate(s),UrNegativeNormalNEGMercy Jackson Heights HospitalComment on above:Result Comment: (Positive cutoff 200 ng/mL)Performed By: #### RAHUL #### [address] [place], [place] [address] Shank Inspector: Belia Manjarrez MDBenzodiazepine(s)NegativeNormalNEGMercy Jackson Heights HospitalComment on above:Result Comment: (Positive cutoff 200 ng/mL)Performed By: #### RAHUL #### [address] [place], [facility]83 Shank Inspector: Belia Manjarrez MDBuprenorphrine, UrNegativeNormalNEGMercy Jackson Heights HospitalComment on above:Result Comment: (Positive cutoff 5 ng/ml)Performed By: #### RAHUL #### [address] [place], [facility]83 Shank Inspector: JUAN MIGUEL Anguianoannabinoid(s),UrNegativeNormalNEGMercy Jackson Heights HospitalComschoolcraft memorial hospital on above:Result Comment: (Positive cutoff 50 ng/mL)Performed By: #### RAHUL #### [address] [place], [place] [address] Shank Inspector: JUAN MIGUEL Anguianoocaine MetaboliteNegativeNormalNEGMercy Hospital For Special CareComschoolcraft memorial hospital on above:Result Comment: (Positive cutoff 300 ng/mL)Performed By: #### RAHUL #### [address] [place], [facility]83 Shank Inspector: Belia Manjarrez MDFentanyl, UrineNegativeNormalNEGMercy Jackson Heights HospitalComment on above:Result Comment: (Positive cutoff 5 ng/ml)Performed By: #### RAHUL #### [address] [place], [place] [address] Shank Inspector: Belia Manjarrez MDInterpretive InfoAssay provides medical screening only. The absence of expected drug(s) and/orNormalMercy Jackson Heights HospitalComment on above:Result Comment: metabolite(s) may indicate diluted or adulterated urine, limitations of testing or timing of collection. Testing for legal purposes should be confirmed by another method. To request confirmation of test result, please call the lab within 7 days of sample submission.Performed By: #### RAHUL #### [address] [place], [place] [address] Shank Inspector: DIANA Anguianoethadone Ql (U)NegativeNormalNEGMercy Jackson Heights HospitalComment on above:Result Comment: (Positive cutoff 300 ng/mL)Performed By: #### RAHUL #### [address] [place], [place] [address] Shank Inspector: Belia Manjarrez MDOpiate(s), UrNegativeNormalNEGMercy Jackson Heights HospitalComment on above:Result Comment: (Positive cutoff 300 ng/mL)Performed By: #### RAHUL #### [address] [place], [place] [address] Shank Inspector: Belia Manjarrez MDOxycodone, UrineNegativeNormalNEGMercy Jackson Heights HospitalComment on above:Result Comment: (Positive cutoff 100 ng/mL)Performed By: #### RAHUL #### [address] [place], [place] [address] Shank Inspector: FRANKLIN Anguianohencyclidine, UrNegativeNormalNEGMerMadison Health HospitalComschoolcraft memorial hospital on above:Result Comment: (Positive cutoff 25 ng/mL)Performed By: #### RAHUL #### [address] [place], [place] [address] Shank Inspector: Belia Manjarrez MDMagnesiumon 21-22-2415Zuuyaywsz [Mass/Vol]2.2 mg/dLNormal1.6-2.6[facility] HospitalComment on above:Performed By: #### ADAU9S #### [address] [address] Shank Inspector: Trey Carroll MD #### CP, CDP, MG #### [facility] [address] [place] [address] Shank Inspector: EUGENIO AnguianoR knee LT 4V*on 08-60-5914TK knee LT 4V*[facility] [employer] Other XR knee LT 4V*[facility] [employer] Other XR knee LT 4V*[address] [facility] [employer] Other XR knee LT 4V*[place], [place] [address]O[employer] Other XR knee LT 4V*[facility] [employer] Other XR knee LT 4V*[facility] [employer] Other XR knee LT 4V*Patient: Josephine Jang MR#: [id number] [place] [employer] Other XR knee LT 4V*[facility] [employer] Other XR knee LT 4V*: 1980 Acct:[id number] [employer] Other XR knee LT 4V*Age/Sex: 43 / F ADM Date: 09/13/23[place] [employer] Other XR knee LT 4V*Loc: XDUCLY Room: Type: [facility] Other XR knee LT 4V*Attending Dr: Shae Love [employer] Other XR knee LT 4V*Copies to: Shae Love [employer] Other XR knee LT 4V*Ordering Provider: Shae Love APRN [employer] Other XR knee LT 4V*Date of Service: 09/13/23[employer] Other XR knee LT 4V* XR/XR knee LT 4V*: [facility] [employer] Other XR knee LT 4V*XR knee LT 4V* 09/13/2023 10:51 [employer] Other XR knee LT 4V*SIGNS AND SYMPTOMS: Twisting injury to left knee with pain and swelling mediallyPlatte Center [employer] Other XR knee LT 4V*PROTOCOL: Frontal, lateral, and oblique radiographs of the left kneeNost. joseph medical center [employer] Other XR knee LT 4V*COMPARISON: [facility] [employer] Other XR knee LT 4V*FINDINGS:[employer] Other XR knee LT 4V*The joint spaces are preserved. There is a moderate joint effusion. There is no evidence of fractureNost. joseph medical center [employer] Other XR knee LT 4V*or dislocation. No significant soft tissue swelling.[employer] Other XR knee LT 4V* XR/XR knee LT 4V* [employer] Other XR knee LT 4V*IMPRESSION:[employer] Other XR knee LT 4V*No fracture.[employer] Other XR knee LT 4V*There is a moderate joint effusion.[employer] Other XR knee LT 4V*Impression dictated by: Donato Rockwell M.D.09/13/2023 11:19 [employer] Other XR knee LT 4V*Dictation Location: [address] [employer] Other XR knee LT 4V*Transcribed By: NICKY 09/13/[address] [place] [address] [employer] Other XR knee LT 4V*Dictated By: Donato Rockwell II, MD 09/13/[address] [place] [address] [employer] Other XR knee LT 4V*Signed By:[facility] [employer] Other XR knee LT 4V*09/13/[address] [place] [address] [employer] Other XR knee LT 4V*[facility] Main [place] [address] [place] [address] XRay Report Signed Patient: Josephine Jang MR#: [id number] 8 : 1980 Acct:[id number] Age/Sex: 43 / F ADM Date: 09/13/23 Loc: XDUCLY Room: Type: [facility] Attending Dr: Shae Love APRN Copies [...] Donato Rockwell M.D.09/13/2023 11:19 AM Dictation Location: [place] [address] Transcribed By: [facility] 09/13/231118 Dictated By: Donato Rockwell II, MD 09/13/231117 Signed By: 09/13/[address] [place], [place] [address]CT CHEST WO CONon 10-10-2022 CT CHEST WO [...] Electronically authenticated by: AMANDA CASSIDY Date: 2022-10-10 10:35[facility] CenterCovid-19 PCR (CVDTBH)on 58-48-5095CBNO-CoV-2 (COVID-19) RNA RAYMOND+probe Ql (Unsp spec)Not detectedNormalNOT DETECTEDThe [facility] Comment on above:Result Comment: When diagnostic testing [...] for this test is supported by the Audio Visual Design Engineer of Health and Human Service's declaration that [...] longer be used).Performed By: #### CVDTBH #### [facility] [address] [place] [address] Dr. Les BryanCT CHEST WO CONon 37-53-9833JU CHEST WO CONEXAMINATION: CT CHEST WO CON [...] Electronically authenticated by: BELIA COLBERT Date: 2022-09-01 09:[address] [place], [place] [address]MG MAMM SCREEN 3D GUSTAVO CADon 69-78-7169YJ MAMM SCREEN 3D GUSTAVO CAD Patient: JOSEPHINE JANG Exam Date: 09/01/2022 : 1980 Gender:F Ordering : DR ANGELICA VERONICA . Admission #: [id number] Family : Order #: [id number] CLICK HERE TO VIEW EXAM RADIOLOGY REPORT [...] cancer at age 59. LOCATION: [facility] BREAST COMPOSITION: Scattered areas fibroglandular density. [...] by: Belia Colbert MD on 09/01/2022 at 09:32[facility] HospitalOG PANEL 2: 21 to 29on 06-02-2022..NormalThe [facility] on above:Result Comment: Performed at: WBPerformed By: #### [id number] #### [facility] [address] [place] [address] Dr. Les BryanAge Gdln ACOG Ykhcuty28-69KouznlBriSt. John of God Hospital on above:Performed By: #### [id number] #### [facility] [address] [address] [address] Les BryanDIAGNOSIS:CommentAvita Health System Galion Hospital on above: Result Comment: NEGATIVE FOR INTRAEPITHELIAL LESION OR MALIGNANCY. Performed at: WBPerformed By: #### [id number] #### [facility] [address] [place] [address] [address] Les BryanHPV AptimaNegativeNormalNegativeLancaster Municipal Hospital on above:Result Comment: This nucleic acid amplification test detects fourteen high-risk HPV types (16,18,31,33,35,39,45,51,52,56,58,59,66,68) without differentiation. Performed at: =GPerformed By: #### [id number] #### [facility] [address] [place] [address] Dr. Les BryanMethodology:CommentAvita Health System Galion Hospital on above: Result Comment: This liquid based ThinPrep(R) pap test was screened with the use of an image guided system. Performed at: WBPerformed By: #### [id number] #### [facility] [address] [place] [address] Dr. eLs BryanNote:CommentAvita Health System Galion Hospital on above:Result Comment: The Pap smear is a screening test designed to aid in the detection of premalignant and malignant conditions of the uterine cervix. It is not a diagnostic procedure and should not be used as the sole means of detecting cervical cancer. Both false-positive and false-negative reports do occur. . Performed at: WBPerformed By: #### [id number] #### [facility] [address] [place] [address] Dr. Les BryanPerformed by:CommentAvita Health System Galion Hospital on above: Result Comment: Genaro Cuevas, Steam Blocker (ASCP) Performed at: WBPerformed By: #### [id number] #### [facility] [address] [place] [address] Dr. Les BryanSpecimetammy adequacy:CommentAvita Health System Galion Hospital on above:Result Comment: Satisfactory for evaluation. Endocervical and/or squamous metaplastic cells (endocervical component) are present. Performed at: WBPerformed By: #### [id number] #### [place] [address] Dr. Les GuyPATITIS PANEL, [facility] 87-84-5353IRqPf ScreenNegativeNormal NegativeThe [facility] HospitalComschoolcraft memorial hospital on above:Performed By: #### HEPACUT #### [facility] [address] [place] [address] Dr. Les BryanHCInga AB0.2 s/co ratioNormal0.0-0.9The [facility] on above:Performed By: #### HEPACUT #### [facility] [address] [place] [address] Dr. Les Nino Ab, IgMNegativeNormalNegativeThe [facility] on above:Performed By: #### HEPACUT #### [facility] [address] [place] [address] Dr. Les Linares Core Ab, IgMNegativeNormalNegativeUniversity Hospitals St. [facility] Comment on above:Performed By: #### HEPACUT #### [facility] [address] [place] [address] Dr. Les BryanInterpretation:CommentNormalThe [facility] HospitalComment on above:Result Comment: Negative Not infected with HCV, unless recent infection is suspected or other evidence exists to indicate HCV infection.Performed By: #### HEPACUT #### [facility] [address] [place] [address] Dr. Les BryanINSULINon 25-15-4834Eqxedln27.8 uIU/mLNormal2.6-24.9The [facility] HospitalComment on above:Performed By: #### INSULIN #### [facility] [address] [place] [address] Dr. Les BryanBILIRUBIN CONJUGATED (DIRECT)on 55-88-5728KQWA, CONJUGATED0.1 mg/dLNormal0.0-0.2The [facility] HospitalComment on above:Performed By: #### AMIE UMDARCIERO #### [facility] [address] [place] [address] Dr. Les Sales 06-33-9312Teycgosqkvm peptide B (Bld) [Mass/Vol]12.0 pg/mL Normal<=450.0The [facility] HospitalComment on above:Performed By: #### BARBER HOLLOWAYRO #### [facility] [address] [place] [address] Dr. Les HillC AUTO DIFFon 65-19-3761FJZT #0.1 103/ulNormal0.0-0.1The [facility] HospitalComment on above:Performed By: #### CBC #### [facility] [address] [place] [address] Dr. Les BryanBasophils/100 WBC (Bld)0.6 %Normal0.2-2.0[facility] Comment on above:Performed By: #### CBC #### [facility] [address] [place] [address] Dr. Les sEteban #0.3 103/ulNormal0.0-0.7The [facility] HospitalComment on above: Performed By: #### CBC #### [facility] [address] [address] [address] Les Fryeosinophils/100 WBC (Bld)3.0 %Normal0.9-7.0The [facility] Comment on above:Performed By: #### CBC #### [facility] [address] [place] [address] Dr. Les Fryerythrocyte distribution width (RBC) [Ratio]13.2 %Yxccaj25.0-15.0 The [facility] HospitalComment on above:Performed By: #### CBC #### [facility] [address] [place] [address] Dr. Les ByranHematocrit (Bld) [Volume fraction]40.8 %Sqtscu23.0-48.0The [facility] HospitalComment on above:Performed By: #### CBC #### [facility] [address] [place] [address] Dr. Les BryanHemoglobin (Bld) [Mass/Vol]13.4 g/jTIkvznl38.0-16.0The [facility] HospitalComment on above:Performed By: #### CBC #### [facility] [address] [place] [address] Dr. Les Hudson #0.07 10e3/ulCritically high0.00-0.03The [facility] Comment on above:Performed By: #### CBC #### [facility] [address] [place] [address] Dr. Les Hudson %0.8 %Critically high0.0-0.5The [facility] HospitalComment on above:Performed By: #### CBC #### [facility] [address] [place] [address] Dr. Les Cheema #2.8 103/ulNormal1.2-3.8The [facility] HospitalComment on above:Performed By: #### CBC #### [facility] [address] [place] [address] Dr. Les Thomsonmphocytes/100 WBC (Bld)31.7 %Nvqjun86.5-60.0The [facility] HospitalComment on above:Performed By: #### CBC #### [facility] [address] [place] [address] Dr. Les NicholsUAL DIFF REQNONormalThe [facility] HospitalComment on above: Performed By: #### CBC #### [facility] [address] [place] [address] Dr. Les Quinones (RBC) [Entitic mass]29.5 vfLjhvxx93.7-34.0The [facility] HospitalComment on above:Performed By: #### CBC #### [facility] [address] [place] [address] Dr. Les Quinones (RBC) [Mass/Vol]32.8 g/gFZqicdh94.9-35.2The [facility] HospitalComment on above:Performed By: #### CBC #### [facility] [address] [place] [address] Dr. Les Quinones (RBC) [Entitic vol]89.9 tHZuclxy10.0-99.0The [facility] HospitalComment on above:Performed By: #### CBC #### [facility] [address] [place] [address] Dr. Les Amaya #0.4 103/ulNormal0.3-0.8The [facility] HospitalComment on above:Performed By: #### CBC #### [facility] [address] [place] [address] Dr. Les Howardocytes/100 WBC (Bld)4.7 %Normal1.7-12.0The [facility] Comment on above:Performed By: #### CBC #### [facility] [address] [place] [address] Dr. Les Dennis #5.3 103/ulNormal1.4-6.5The [facility] HospitalComment on above:Performed By: #### CBC #### [facility] [address] [address] [address] Les Hellerutrophils/100 WBC (Bld)59.2 %Iwpxni34.0-75.0The [facility] Hospital Companyment on above:Performed By: #### CBC #### [facility] [address] [address] [address] Les Cervantes mean volume (Bld) [Entitic vol]9.1 fLCritically low 9.5-13.5The [facility] HospitalComment on above:Performed By: #### CBC #### [facility] [address] [address] [address] Les BryanPLT309 103/dqKairju089-721Iay [facility] on above: Performed By: #### CBC #### [facility] [address] [place] [address] Dr. Les BryanRBC4.54 106/ulNormal4.20-5.40The [facility] Hospital Companyment on above:Performed By: #### CBC #### [facility] [address] [place] [address] Dr. Les BryanWBC8.9 103/ulNormal4.0-11.0The [facility] on above: Performed By: #### CBC #### [facility] [address] [place] [address] Dr. Les Vigil T3on 68-57-9225EGSJ T32.02 pg/mlLCritically low2.18-3.98The [facility] HospitalComment on above:Performed By: #### BARBER HOLLOWAYRO #### [facility] [address] [place] [address] Dr. Les Vigil THYROXINE INDEX T7on 55-37-0035NLV3.45Gonqna2.30-4.50The [facility] on above:Performed By: #### SABINE HOLLOWAYICRO #### [facility] [address] [place] [address] Dr. Les BryanT3U30.0 %Pdfaim50.0-39.0The [facility] HospitalComment on above: Performed By: #### SABINE HOLLOWAYICRO #### [facility] [address] [address] [address] Les BryanT4 [Mass/Vol]6.90 ug/dLNormal4.80-13.90The [facility] Comment on above:Performed By: #### BARBER HOLLOWAYRO #### [facility] [address] [place] [address] Dr. Les BryanGLYCOHEMOGLOBIN A1Con 63-93-4613FSZ RECOMMENDATIONSEE BELOWSt. Rita'S HospitalComment on above:Result Comment: ADA RECOMMENDED LIMIT 4.0 - 6.0 ADA THERAPEUTIC TARGET < 7.0 ACTION SUGGESTED > 7.0Performed By: #### A1C #### [facility] [address] [place] [address] Dr. Les BryanGlucose [Mass/Vol]120 mg/dLNoDayton Children's HospitalComment on above:Performed By: #### A1C #### [facility] [address] [place] [address] Dr. Les BryanHbA1c (Bld) [Mass fraction]5.8 %Normal4.5-6.2The [facility] HospitalComment on above:Performed By: #### A1C #### [facility] [address] [place] [address] Dr. Les Gipson 24-58-4091Mraa [Mass/Vol]66.0 ug/nDWlegco90.0-170.0The [facility] HospitalComment on above:Performed By: #### RICARDO HOLLOWAY #### [facility] [address] [place] [address] Dr. Les BryanLIPID PROFILEon 10-86-3240RCDL-HDL RATIO NORMSEE [facility] HospitalComschoolcraft memorial hospital on above:Result Comment: 3.3 - 4.4 LOW RISK 4.4 - 7.1 AVERAGE RISK 7.1 - 11.0 MODERATE RISK >11.0 HIGH RISKPerformed By: #### SABINE HOLLOWAYICRO #### [facility] [address] [address] [address] Les BryanCholesterol [Mass/Vol]244 mg/dLCritically high<=200The [facility] on above:Performed By: #### BARBER HOLLOWAYRO #### [facility] [address] [address] [address] Les BryanCholesterol in HDL [Mass/Vol]55 mg/dLNnrxiq73-91Usj [facility] HospitalComschoolcraft memorial hospital on above:Performed By: #### AMIE UMICRO #### [facility] [address] [address] [address] Les BryanCholesterol in LDL [Mass/Vol]155.4 mg/dLFairfield Medical CenterComschoolcraft memorial hospital on above:Performed By: #### AMIE UMICRO #### [facility] [address] [place] [address] Dr. Les Osborneesterpage.total/Cholesterol in HDL [Mass ratio]4.4 {ratio} NormalThe [facility] HospitalComschoolcraft memorial hospital on above:Performed By: #### AMIE UMICRO #### [facility] [address] [place] [address] Dr. Les Hood NORMAL> or = 60 mg/dl - LOW CARDIOVASCULAR RISK <40 mg/dl - HIGH CARDIOVASCULAR RISKFairfield Medical CenterComschoolcraft memorial hospital on above:Performed By: #### AMIE UMICRO #### [facility] [address] [place] [address] Dr. Les BryanLDL CALC NORMALSEE BELOWNoDayton Children's HospitalComment on above:Result Comment: <100 mg/dl OPTIMAL 100 - 129 mg/dl NEAR OR ABOVE OPTIMAL 130 - 159 mg/dl BORDERLINE HIGH 160 - 189 mg/dl HIGH >190 mg/dl VERY HIGH Performed By: #### AMIE UMICRO #### [facility] [address] [place] [address] Dr. Les BryanTriglyceride [Mass/Vol]168 mg/dLCritically high<=150The [facility] on above:Performed By: #### AMIE UMICRO #### [facility] [address] [address] [address] Les BryanVLDL CALC33.6 mg/dLNormalThe [facility] HospitalComment on above: Performed By: #### AMIE UMICRO #### [facility] [address] [address] [address] Lse BryanPROF 14(COMP METB)on 81-24-1357Hwlecpu [Mass/Vol]3.9 g/dLNormal 3.4-5.0The [facility] HospitalComment on above:Performed By: #### AMIE UMICRO #### [facility] [facility] [address] [address] [address] Les BryanAlbumin/Globulin [Mass ratio]0.9 {ratio}NormalThe [facility] HospitalComment on above:Performed By: #### AMIE UMICRO #### [facility] [address] [place] [address] Dr. Les Kelly [Catalytic activity/Vol]137 U/LCritically vlit45-432Aml [facility] HospitalComment on above:Performed By: #### AMIE UMICRO #### [facility] [address] [place] [address] Dr. Les Singh [Catalytic activity/Vol]104 U/LCritically vqur31-67Zwo [facility] HospitalComment on above:Performed By: #### AMIE UMICRO #### [facility] [address] [address] [address] Les Baez gap [Moles/Vol]13.3 mmol/LNormalThe [facility] Comment on above:Performed By: #### AMIE UMICRO #### [facility] [address] [place] [address] Dr. Les Lopez [Catalytic activity/Vol]59 U/LCritically uhla53-95Imx [facility] HospitalComment on above:Performed By: #### AMIE UMICRO #### [facility] [address] [place] [address] Dr. Les BryanBilirubin [Mass/Vol]0.3 mg/dLNormal0.2-1.0[facility] Comment on above:Performed By: #### RICARDO HOLLOWAY #### [facility] [address] [place] [address] Dr. Les BryanCalcium [Mass/Vol]9.0 mg/dLNormal8.5-10.1[facility] Comment on above:Performed By: #### AMIE UMDARCIERO #### [facility] [address] [place] [address] Dr. Les BryanChloride [Moles/Vol]104 mmol/HUbzune96-020WgnUniversity Hospitals St. [facility] Comment on above:Performed By: #### BARBER HOLLOWAYRO #### [facility] [address] [place] [address] Dr. Les BryanCO2 [Moles/Vol]25.0 mmol/YWqliol92.0-32.0[facility] Comment on above:Performed By: #### BARBER HOLLOWAYRO #### [facility] [address] [place] [address] Dr. Les BryanCreatinine [Mass/Vol]0.70 mg/dLNormal0.55-1.02[facility] CenterComment on above:Performed By: #### BARBER HOLLOWAYRO #### [facility] [address] [place] [address] Dr. Saldana ChangEGFR-AF GLTKTIPS266 mL/min/1.70l9Ypciev>=60The [facility] Comment on above:Performed By: #### AMIE UMICRO #### [facility] [address] [place] [address] Dr. Les FryeGFR-NON AF QUQJTIKI22 mL/min/1.69w4Deisnv>=60The [facility] HospitalComment on above:Performed By: #### AMIE UMICRO #### [facility] [address] [place] [address] Dr. Les BryanGlobulin (S) [Mass/Vol]4.3 g/dLNormalThe [facility] HospitalComment on above:Performed By: #### AMIE UMICRO #### [facility] [address] [place] [address] Dr. Les BryanGlucose [Mass/Vol]104 mg/kIZlklzm63-319Cvc [facility] Comment on above:Performed By: #### AMIE UMICRO #### [facility] [address] [place] [address] Dr. Les BryanPotassium [Moles/Vol]4.3 mmol/LNormal3.5-5.1The [facility] Comment on above:Performed By: #### AMIE UMICRO #### [facility] [address] [place] [address] Dr. Les BryanProtein [Mass/Vol]8.2 g/dLNormal6.4-8.2The [facility] Comment on above:Performed By: #### AMIE UMICRO #### [facility] [address] [place] [address] Dr. Les BryanSodium [Moles/Vol]138 mmol/UJnysnw520-079Woq [facility] Comment on above:Performed By: #### AMIE UMICRO #### [facility] [address] [place] [address] Dr. Les BryanUrea nitrogen [Mass/Vol]10.0 mg/dLNormal7.0-18.0[facility] CenterComment on above:Performed By: #### AMIE UMICRO #### [facility] [address] [place] [address] Dr. Les Lopes nitrogen/Creatinine [Mass ratio]14.3 mg/mgNormalThe [facility] HospitalComment on above:Performed By: #### AMIE UMICRO #### [facility] [address] [place] [address] Dr. Les Reardon 78-95-5900AUH5.067 uIU/mLCritically high0.358-3.740The [facility] HospitalComment on above:Performed By: #### TSH, DBIL, BNP, FT3, T7, LIPID, CMP #### [facility] [address] [place] [address] Dr. Les BryanINSULINon 24-87-3547Humhlnd32.6 uIU/mLCritically high2.6-24.9The [facility] HospitalComment on above:Performed By: #### RICARDO HOLLOWAY #### [facility] [address] [place] [address] Dr. Les Ambrosio4 LABCORPon [id number] [Mass/Vol]6.7 ug/dLNormal4.5-12.0The [facility] HospitalComment on above:Performed By: #### [id number] #### [facility] [address] [place] [address] Dr. Les Sales 43-92-1848Spotmxxoqop peptide B (Bld) [Mass/Vol]18.0 pg/mL Normal<=450.0The [facility] HospitalComment on above:Performed By: #### RICARDO HOLLOWAY #### [facility] [address] [place] [address] Dr. Les HillC AUTO DIFFon [id number] #0.1 103/ulNormal0.0-0.1The [facility] HospitalComment on above:Performed By: #### [id number] #### [facility] [address] [place] [address] Dr. Les BryanBasophils/100 WBC (Bld)0.6 %Normal0.2-2.0The [facility] Comment on above:Performed By: #### [id number] #### [facility] [address] [place] [address] Dr. Les Esteban #0.2 103/ulNormal0.0-0.7The [facility] HospitalComment on above: Performed By: #### [id number] #### [facility] [address] [place] [address] Dr. Les Fryeosinophils/100 WBC (Bld)1.9 %Normal0.9-7.0The [facility] Comment on above:Performed By: #### [id number] #### [facility] [address] [address] [address] Les Fryerythrocyte distribution width (RBC) [Ratio]13.3 %Fufvzr25.0-15.0 The [facility] HospitalComment on above:Performed By: #### [id number] #### [facility] [address] [place] [address] Dr. Les BryanHematocrit (Bld) [Volume fraction]39.1 %Kemfkp64.0-48.0The [facility] HospitalComment on above:Performed By: #### [id number] #### [facility] [address] [place] [address] Dr. Les BryanHemoglobin (Bld) [Mass/Vol]13.2 g/aIEsmvgk90.0-16.0The [facility] HospitalComment on above:Performed By: #### [id number] #### [facility] [address] [place] [address] Dr. Les Hudson #0.08 10e3/ulCritically high0.00-0.03The [facility] Comment on above:Performed By: #### [id number] #### [facility] [address] [place] [address] Dr. Les Hudson %0.8 %Critically high0.0-0.5The [facility] HospitalComment on above:Performed By: #### [id number] #### [facility] [address] [place] [address] Dr. Les Cheema #3.0 103/ulNormal1.2-3.8The [facility] HospitalComment on above:Performed By: #### [id number] #### [facility] [address] [place] [address] Dr. Les Lemushocytes/100 WBC (Bld)31.4 %Mckxth13.5-60.0The [facility] HospitalComment on above:Performed By: #### [id number] #### [facility] [address] [place] [address] Dr. Les NicholsUAL DIFF REQNONormalThe [facility] HospitalComment on above: Performed By: #### [id number] #### [facility] [address] [place] [address] Dr. Les Quinones (RBC) [Entitic mass]30.1 jkXshxmv13.7-34.0The [facility] HospitalComment on above:Performed By: #### [id number] #### [facility] [address] [place] [address] Dr. Les Quinones (RBC) [Mass/Vol]33.8 g/gHVsqvzk30.9-35.2The [facility] HospitalComment on above:Performed By: #### [id number] #### [facility] [address] [place] [address] Dr. Les Valiente (RBC) [Entitic vol]89.1 uDDkntif60.0-99.0The [facility] HospitalComment on above:Performed By: #### [id number] #### [facility] [address] [place] [address] Dr. Les Amaya #0.6 103/ulNormal0.3-0.8The [facility] HospitalComment on above:Performed By: #### [id number] #### [facility] [address] [place] [address] Dr. Les Howardocytes/100 WBC (Bld)6.1 %Normal1.7-12.0The [facility] Comment on above:Performed By: #### [id number] #### [facility] [address] [place] [address] Dr. Les Dennis #5.6 103/ulNormal1.4-6.5The [facility] HospitalComment on above:Performed By: #### [id number] #### [facility] [address] [place] [address] Dr. Les Hellerutrophils/100 WBC (Bld)59.2 %Slicon93.0-75.0The [facility] HospitalComment on above:Performed By: #### [id number] #### [facility] [address] [place] [address] Dr. Les Meehanlet mean volume (Bld) [Entitic vol]9.0 fLCritically low 9.5-13.5The [facility] HospitalComment on above:Performed By: #### [id number] #### [facility] [address] [place] [address] Dr. Les BryanPLT286 103/ndRjrhmn208-075Rxs [facility] HospitalComment on above: Performed By: #### [id number] #### [facility] [address] [place] [address] Dr. Les BryanRBC4.39 106/ulNormal4.20-5.40The [facility] HospitalComment on above:Performed By: #### [id number] #### [facility] [address] [place] [address] Dr. Les BryanWBC9.5 103/ulNormal4.0-11.0The [facility] HospitalComment on above: Performed By: #### [id number] #### [facility] [address] [place] [address] Dr. Les Vigil T3on 18-16-6762TIDO T32.73 pg/mlLNormal2.18-3.98The [facility] HospitalComment on above:Performed By: #### RICARDO HOLLOWAY #### [facility] [address] [place] [address] Dr. Les Vigil THYROXINE INDEX T7on 87-54-4432OGX1.97Mbtqmr6.30-4.50The [facility] HospitalComment on above:Performed By: #### BARBER HOLLOWAYRO #### [facility] [address] [place] [address] Dr. Les BryanT3U31.0 %Tdxtjg56.0-39.0The [facility] HospitalComment on above: Performed By: #### BARBER HOLLOWAYRO #### [facility] [address] [place] [address] Dr. Les BryanT4 [Mass/Vol]6.70 ug/dLNormal4.80-13.90The [facility] Comment on above:Result Comment: T4 testing performed by LabCorpPerformed By: #### RICARDO HOLLOWAY #### [facility] [address] [place] [address] Dr. Les BryanGLYCOHEMOGLOBIN A1Con [id number] RECOMMENDATIONSEE BELOWSt. Rita'S HospitalComment on above:Result Comment: ADA RECOMMENDED LIMIT 4.0 - 6.0 ADA THERAPEUTIC TARGET < 7.0 ACTION SUGGESTED > 7.0Performed By: #### [id number] #### [facility] [address] [place] [address] Dr. Les BryanGlucose [Mass/Vol]120 mg/dLNoDayton Children's HospitalComment on above:Performed By: #### [id number] #### [facility] [address] [place] [address] Dr. Les BraynHbA1c (Bld) [Mass fraction]5.8 %Normal4.5-6.2The [facility] HospitalComment on above:Performed By: #### [id number] #### [facility] [address] [place] [address] Dr. Les Gipson 08-07-0561Pbnk [Mass/Vol]105.0 ug/lMOgtxzr39.0-170.0[facility] CenterComment on above:Performed By: #### RICARDO HOLLOWAY #### [facility] [address] [place] [address] Dr. Les BryanLIPID PROFILEon [id number]-HDL RATIO NORMSEE [facility] HospitalComment on above:Result Comment: 3.3 - 4.4 LOW RISK 4.4 - 7.1 AVERAGE RISK 7.1 - 11.0 MODERATE RISK >11.0 HIGH RISKPerformed By: #### BARBER HOLLOWAYRO #### [facility] [address] [place] [address] Dr. Les BryanCholesterol [Mass/Vol]217 mg/dLCritically high<=200The [facility] HospitalComment on above:Performed By: #### ERUR, UMICRO #### [facility] [address] [address] [address] Les BryanCholesterol in HDL [Mass/Vol]49 mg/fNJacssz25-58Feb [facility] on above:Performed By: #### AMIE UMICRO #### [facility] [address] [place] [address] Dr. Les BryanCholesterol in LDL [Mass/Vol]128.2 mg/dLNoDayton Children's HospitalComschoolcraft memorial hospital on above:Performed By: #### AMIE UMICRO #### [facility] [address] [place] [address] Dr. Les Osborneesterpage.total/Cholesterol in HDL [Mass ratio]4.4 {ratio} NormalThe [facility] HospitalComschoolcraft memorial hospital on above:Performed By: #### AMIE UMICRO #### [facility] [address] [place] [address] Dr. Les Hood NORMAL> or = 60 mg/dl - LOW CARDIOVASCULAR RISK <40 mg/dl - HIGH CARDIOVASCULAR RISKFairfield Medical CenterComschoolcraft memorial hospital on above:Performed By: #### AMIE UMICRO #### [facility] [address] [place] [address] Dr. Lse Villarreal CALC NORMALSEE BELOWFairfield Medical CenterComschoolcraft memorial hospital on above:Result Comment: <100 mg/dl OPTIMAL 100 - 129 mg/dl NEAR OR ABOVE OPTIMAL 130 - 159 mg/dl BORDERLINE HIGH 160 - 189 mg/dl HIGH >190 mg/dl VERY HIGH Performed By: #### AMIE UMICRO #### [facility] [address] [place] [address] Dr. Les BryanTriglyceride [Mass/Vol]199 mg/dLCritically high<=150The [facility] on above:Performed By: #### AMIE UMICRO #### [facility] [address] [place] [address] Dr. Les WaldronLDL CALC39.8 mg/dLNoDayton Children's HospitalComment on above: Performed By: #### RICARDO HOLLOWAY #### [facility] [address] [place] [address] Dr. Les Martins 14(COMP METB)on [id number] [Mass/Vol]3.8 g/dLNormal 3.4-5.0The [facility] HospitalComment on above:Performed By: #### AMIE UMICRO #### [facility] [address] [place] [address] Dr. Les BryanAlbumin/Globulin [Mass ratio]0.9 {ratio}NormalThe [facility] HospitalComment on above:Performed By: #### AMIE UMDARCIERO #### [facility] [address] [place] [address] Dr. Les Kelly [Catalytic activity/Vol]122 U/LCritically yqln13-119Vnj [facility] HospitalComment on above:Performed By: #### BARBER HOLLOWAYRO #### [facility] [address] [place] [address] Dr. Les Singh [Catalytic activity/Vol]90 U/LCritically uxam36-15Zjf [facility] HospitalComment on above:Performed By: #### ABRBER HOLLOWAYRO #### [facility] [address] [place] [address] Dr. Les Baez gap [Moles/Vol]13.5 mmol/LNormalThe [facility] Comment on above:Performed By: #### BARBER HOLLOWAYRO #### [facility] [address] [place] [address] Dr. Les BryanAST [Catalytic activity/Vol]63 U/LCritically rgqp55-22Doq [facility] HospitalComment on above:Performed By: #### BARBER HOLLOWAYRO #### [facility] [address] [place] [address] Dr. Les BryanBilirubin [Mass/Vol]0.4 mg/dLNormal0.2-1.0The [facility] Comment on above:Performed By: #### BARBER HOLLOWAYRO #### [facility] [address] [place] [address] Dr. Les BryanCalcium [Mass/Vol]9.3 mg/dLNormal8.5-10.1The [facility] Comment on above:Performed By: #### AMIE UMICRO #### [facility] [address] [place] [address] Dr. Les BryanChloride [Moles/Vol]103 mmol/JYtrdfw55-519Vtd [facility] Comment on above:Performed By: #### AMIE UMICRO #### [facility] [address] [place] [address] Dr. Les BryanCO2 [Moles/Vol]24.6 mmol/VAgdvjk73.0-32.0The [facility] Comment on above:Performed By: #### AMIE UMICRO #### [facility] [address] [place] [address] Dr. Les BryanCreatinine [Mass/Vol]0.70 mg/dLNormal0.55-1.02The [facility] HospitalComment on above:Performed By: #### AMIE UMICRO #### [facility] [address] [place] [address] Dr. Les FryeGFR-AF SERBIAN>60Normal>=60The [facility] HospitalComment on above:Performed By: #### AMIE UMICRO #### [facility] [address] [place] [address] Dr. Les FryeGFR-NON AF SERBIAN>60Normal>=60The [facility] HospitalComment on above:Performed By: #### AMIE UMICRO #### [facility] [address] [place] [address] Dr. Les BryanGlobulin (S) [Mass/Vol]4.1 g/dLNormalThe [facility] HospitalComment on above:Performed By: #### AMIE, UMICRO #### [facility] [address] [place] [address] Dr. Les BryanGlucose [Mass/Vol]110 mg/dLCritically goqs83-591Tfq [facility] HospitalComment on above:Performed By: #### AMIE UMICRO #### [facility] [address] [place] [address] Dr. Les BryanPotassium [Moles/Vol]4.1 mmol/LNormal3.5-5.1The [facility] Comment on above:Performed By: #### AMIE UMICRO #### [facility] [address] [place] [address] Dr. Les BryanProtein [Mass/Vol]7.9 g/dLNormal6.4-8.2The [facility] Comment on above:Performed By: #### AMIE UMICRO #### [facility] [address] [place] [address] Dr. Les BryanSodium [Moles/Vol]137 mmol/HDgepma761-539Hys [facility] Comment on above:Performed By: #### AMIE UMICRO #### [facility] [address] [place] [address] Dr. Les BryanUrea nitrogen [Mass/Vol]9.0 mg/dLNormal7.0-18.0[facility] CenterComment on above:Performed By: #### AMIE UMICRO #### [facility] [address] [place] [address] Dr. Les Lopes nitrogen/Creatinine [Mass ratio]12.9 mg/mgNoDayton Children's HospitalComment on above:Performed By: #### BARBER HOLLOWAYRO #### [facility] [address] [place] [address] Dr. Les Reardon 29-23-4407EJS5.572 uIU/mLNormal0.358-3.740[facility] Medical CenterComment on above:Performed By: #### AMIE UMDARCIERO #### [facility] [address] [place] [address] Dr. Les HARMAN BELOWFairfield Medical CenterComment on above: Result Comment: <0.34 UIU/ml HYPERTHYROID 0.34-5.60 UIU/ml EUTHYROID >5.60 UIU/ml HYPOTHYROIDPerformed By: #### ERUR, UMICRO #### [facility] [address] [address] [address] Les BryanXR KUB 1 VIEWon [id number] KUB 1 VIEWEXAMINATION: XR KUB 1 VIEW [...] Electronically authenticated by: AMANDA CASSIDY Date: 2022-02-27 15:05Fairfield Medical CenterAMYLASEon [id number] [Catalytic activity/Vol]34 U/L Abjqtb05-992Mhz [facility] HospitalComment on above:Performed By: #### [id number] #### [facility] [address] [address] [address] Les HillC AUTO DIFFon [id number] #0.0 103/ulNormal0.0-0.1The [facility] HospitalComment on above:Performed By: #### CBC #### [facility] [address] [address] [address] Les BryanBasophils/100 WBC (Bld)0.4 %Normal0.2-2.0The [facility] Comment on above:Performed By: #### CBC #### [facility] [address] [address] [address] Les Esteban #0.3 103/ulNormal0.0-0.7The [facility] HospitalComment on above: Performed By: #### CBC #### [facility] [address] [address] [address] Les Fryeosinophils/100 WBC (Bld)3.6 %Normal0.9-7.0The [facility] Comment on above:Performed By: #### CBC #### [facility] [address] [place] [address] Dr. Les Fryerythrocyte distribution width (RBC) [Ratio]13.1 %Mufemf99.0-15.[address] [facility] Medical CenterComment on above:Performed By: #### CBC #### [facility] [address] [place] [address] Dr. Les BryanHematocrit (Bld) [Volume fraction]40.6 %Lqrzra31.0-48.0The [facility] HospitalComment on above:Performed By: #### CBC #### [facility] [address] [place] [address] Dr. Les BryanHemoglobin (Bld) [Mass/Vol]13.3 g/dSQjxjhi77.0-16.0[facility] CenterComment on above:Performed By: #### CBC #### [facility] [address] [place] [address] Dr. Les Hudson #0.06 10e3/ulCritically high0.00-0.03[facility] Comment on above:Performed By: #### CBC #### [facility] [address] [place] [address] Dr. Les Hudson %0.6 %Critically high0.0-0.5The [facility] HospitalComment on above:Performed By: #### CBC #### [facility] [address] [place] [address] Dr. Les Cheema #3.6 103/ulNormal1.2-3.8The [facility] HospitalComment on above:Performed By: #### CBC #### [facility] [address] [place] [address] Dr. Les Lemushocytes/100 WBC (Bld)38.2 %Sczvdr79.5-60.0[facility] CenterComment on above:Performed By: #### CBC #### [facility] [address] [place] [address] Dr. Yilan ChangMANUAL DIFF REQNONormalThe [facility] HospitalComment on above: Performed By: #### CBC #### [facility] [address] [place] [address] Dr. Les Quinones (RBC) [Entitic mass]29.7 fnVajnyv16.7-34.0The [facility] HospitalComment on above:Performed By: #### CBC #### [facility] [address] [place] [address] Dr. Les Quinones (RBC) [Mass/Vol]32.8 g/kFTjxlat00.9-35.2The [facility] HospitalComment on above:Performed By: #### CBC #### [facility] [address] [place] [address] Dr. Les Quinones (RBC) [Entitic vol]90.6 dZTilabf31.0-99.0The [facility] HospitalComment on above:Performed By: #### CBC #### [facility] [address] [place] [address] Dr. Les Amaya #0.5 103/ulNormal0.3-0.8The [facility] HospitalComment on above:Performed By: #### CBC #### [facility] [address] [place] [address] Dr. Les Howardocytes/100 WBC (Bld)5.4 %Normal1.7-12.0The [facility] Comment on above:Performed By: #### CBC #### [facility] [address] [place] [address] Dr. Les Dennis #4.9 103/ulNormal1.4-6.5The [facility] HospitalComment on above:Performed By: #### CBC #### [facility] [address] [place] [address] Dr. Les Hellerutrophils/100 WBC (Bld)51.8 %Lfyyzo53.0-75.0The [facility] HospitalComment on above:Performed By: #### CBC #### [facility] [address] [place] [address] Dr. Les Cervantes mean volume (Bld) [Entitic vol]9.2 fLCritically low 9.5-13.5The [facility] HospitalComment on above:Performed By: #### CBC #### [facility] [address] [place] [address] Dr. Les BryanPLT335 103/ojAqrtkt702-501Ygl [facility] HospitalComment on above: Performed By: #### CBC #### [facility] [address] [place] [address] Dr. Les BryanRBC4.48 106/ulNormal4.20-5.40The [facility] HospitalComment on above:Performed By: #### CBC #### [facility] [address] [place] [address] Dr. Les BryanWBC9.4 103/ulNormal4.0-11.0The [facility] HospitalComment on above: Performed By: #### CBC #### [facility] [address] [place] [address] Dr. Les BryanCT ABD/PELVIS WO CONon [id number] ABD/PELVIS WO CONEXAM: CT ABD/PELVIS WO CON [...] Electronically authenticated by: IWONA BRITT Date: 2022-02-25 19:05[facility] URINE PROFILEon [id number] Ql (U)NegativeNormal NEGATIVEUniversity Hospitals St. John Medical CenterComment on above:Performed By: #### AMIE UMICRO #### [facility] [address] [place] [address] Dr. Les [place] (U)CLEARNormalCLEARUniversity Hospitals St. John Medical CenterComment on above: Performed By: #### AMIE UMICRO #### [facility] [address] [place] [address] Dr. Les Live (U)YELLOWNormalYELLOWUniversity Hospitals St. John Medical CenterComment on above: Performed By: #### AMIE UMICRO #### [facility] [address] [place] [address] Dr. Les Barnhart micrscopic examination will be performed if indicated. NormalUniversity Hospitals St. John Medical CenterComment on above:Performed By: #### ERUR UMICRO #### [facility] [address] [address] [address] Les BryanGlucose Ql (U)NegativeNormalNEGATIVEUniversity Hospitals St. John Medical CenterComment on above:Performed By: #### ERUR, UMICRO #### [facility] [address] [place] [address] Dr. Les BryanHemoglobin Ql (U)LARGEAbnormalNEGATIVEUniversity Hospitals St. John Medical Center Comment on above:Performed By: #### AMIE UMICRO #### [facility] [address] [address] [address] Les Mathis Ql (U)NegativeNormalNEGATIVEThe [facility] HospitalComment on above:Performed By: #### AMIE UMICRO #### [facility] [address] [address] [address] Les RahmanOCYTESTRACEAbnormalNEGATIVEThe [facility] HospitalComment on above:Performed By: #### AMIE UMICRO #### [facility] [address] [address] [address] Les Garcia Ql (U)NegativeNormalNEGATIVEUniversity Hospitals St. John Medical CenterComment on above:Performed By: #### AMIE UMICRO #### [facility] [address] [address] [address] Les BryanpH (U)7.0 [pH]Normal5-9The [facility] HospitalComment on above: Performed By: #### AMIE UMICRO #### [facility] [address] [address] [address] Les BryanProtein (U) [Mass/Vol]30 mg/dLAbnormalNEGATIVE/ TRACEThe [facility] HospitalComment on above:Performed By: #### AMIE UMICRO #### [facility] [address] [address] [address] Les BryanSPEC GRAVITY1.179Bcpzeg9.005-<=1.025The [facility] HospitalComment on above:Performed By: #### AMIE UMICRO #### [facility] [address] [address] [address] Les Casillas MICRO INDINDICATEDNormalThMemorial Health System Selby General HospitalComment on above: Performed By: #### AMIE UMICRO #### [facility] [address] [address] [address] Les Tuckerbilino Qn (U)0.2 {Racquel'U}/dLNormal0.2 - 1.0The [facility] HospitalComment on above:Performed By: #### RICARDO HOLLOWAY #### [facility] [address] [place] [address] Dr. Les BryanLIPASEon 09-28-9000Bvizmv [Catalytic activity/Vol]82.0 U/LNormal 73.0-393.0The [facility] HospitalComment on above:Performed By: #### [id number] #### [facility] [address] [place] [address] Dr. Les BryanPROF 14(COMP METB)on 51-06-2041Lzjkkkv [Mass/Vol]3.7 g/dLNormal 3.4-5.0The [facility] HospitalComment on above:Performed By: #### [id number] #### [facility] [address] [place] [address] Dr. Les BryanAlbumin/Globulin [Mass ratio]0.9 {ratio}NormalThe [facility] HospitalComment on above:Performed By: #### [id number] #### [facility] [address] [place] [address] Dr. Les Kelly [Catalytic activity/Vol]129 U/LCritically swww47-297Oxh [facility] HospitalComment on above:Performed By: #### [id number] #### [facility] [address] [place] [address] Dr. Les Singh [Catalytic activity/Vol]86 U/LCritically kbqh67-92Tvi [facility] HospitalComment on above:Performed By: #### [id number] #### [facility] [address] [place] [address] Dr. Les Baez gap [Moles/Vol]15.3 mmol/LNormalThe [facility] on above:Performed By: #### [id number] #### [facility] [address] [place] [address] Dr. Les Lopez [Catalytic activity/Vol]51 U/LCritically zspv33-22Nem [facility] HospitalComment on above:Performed By: #### [id number] #### [facility] [address] [address] [address] Les BryanBilirubin [Mass/Vol]0.2 mg/dLNormal0.2-1.0The [facility] Comment on above:Performed By: #### [id number] #### [facility] [address] [address] [address] Les BryanCalcium [Mass/Vol]8.4 mg/dLCritically low8.5-10.1The [facility] HospitalComment on above:Performed By: #### [id number] #### [facility] [address] [address] [address] Les BryanChloride [Moles/Vol]103 mmol/BIbpevq87-935HrgUniversity Hospitals St. John Medical Center Comment on above:Performed By: #### [id number] #### [facility] [address] [place] [address] Dr. Les BryanCO2 [Moles/Vol]26.2 mmol/IRpfazi81.0-32.0The [facility] Comment on above:Performed By: #### [id number] #### [facility] [address] [address] [address] Les BryanCreatinine [Mass/Vol]0.72 mg/dLNormal0.55-1.02The [facility] HospitalComment on above:Performed By: #### [id number] #### [facility] [address] [place] [address] Dr. Les FryeGFR-AF SERBIAN>60Normal>=60The [facility] HospitalComment on above:Performed By: #### [id number] #### [facility] [address] [place] [address] Dr. Les FryeGFR-NON AF SERBIAN>60Normal>=60The [facility] HospitalComschoolcraft memorial hospital on above:Performed By: #### [id number] #### [facility] [address] [place] [address] Dr. Les BryanGlobulin (S) [Mass/Vol]4.2 g/dLNormalThe [facility] HospitalComment on above:Performed By: #### [id number] #### [facility] [address] [address] [address] Les BryanGlucose [Mass/Vol]121 mg/dLCritically cuth21-466Afq [facility] HospitalComment on above:Performed By: #### [id number] #### [facility] [address] [address] [address] Les BryanPotassium [Moles/Vol]3.5 mmol/LNormal3.5-5.1The [facility] Comment on above:Performed By: #### [id number] #### [facility] [address] [address] [address] Les BryanProtein [Mass/Vol]7.9 g/dLNormal6.1-8.2The [facility] Comment on above:Performed By: #### [id number] #### [facility] [address] [address] [address] Les BryanSodium [Moles/Vol]141 mmol/FKeuucw980-428Hvx [facility] Comment on above:Performed By: #### [id number] #### [facility] [address] [address] [address] Les BryanUrea nitrogen [Mass/Vol]14.0 mg/dLNormal7.0-18.0The [facility] HospitalComment on above:Performed By: #### [id number] #### [facility] [address] [address] [address] Les Lopes nitrogen/Creatinine [Mass ratio]19.4 mg/mgNoDayton Children's HospitalComment on above:Performed By: #### [id number] #### [facility] [address] [address] [address] Les Edwards MICROSCOPIC ONLYon 06-32-6217YDNPNJNSPHWHGRiusiqitVPXZ SEEN [facility] John Medical CenterComment on above:Performed By: #### RICARDO HOLLOWAY #### [facility] [address] [address] [address] Les BryanBactdory identified Cx Nom (U)NOT INDICATEDNormKeenan Private HospitalComment on above:Performed By: #### AMIE UMICRO #### [facility] [address] [address] [address] Les Rodriguez SEENNormalNONE SEENLancaster Municipal Hospital on above:Performed By: #### AMIE UMICRO #### [facility] [address] [address] [address] Les BryanCrystals LM Nom (Urine sed)NONE SEENNormalNONE SEENLancaster Municipal Hospital on above:Performed By: #### AMIE UMICRO #### [facility] [address] [address] [address] Les Fryepithelial cells LM Ql (Urine sed)MODERATEAbnormalNONE SEEN /RARE The [facility] HospitalComschoolcraft memorial hospital on above:Performed By: #### AMIE UMICRO #### [facility] [address] [address] [address] Les BarberCORL SEENNormalNONE SEENLancaster Municipal Hospital on above:Performed By: #### AMIE UMICRO #### [facility] [address] [address] [address] Les BryanGerdrNSH99-39Jfqvgrbx5-3Kgk [facility] on above:Result Comment: crenated RBCsPerformed By: #### AMIE UMICRO #### [facility] [address] [address] [address] Les BryanWBC2-5AbnormalNONE SEENLancaster Municipal Hospital on above: Performed By: #### AMIE UMICRO #### [facility] [address] [address] [address] Les Bryan Vital Signs Date TimeVital SignValuePerforming YsxxkvczlDgkynvku41-08-2910 14:40-0500Blood Pressure LocationMictucson va medical centerkristy FREDERICK [phone]-VnyxwMer[facility] Health [facility] [place] 12-02-2024 14:40-0500Diastolic blood upnmhvdp325 mm[Hg]Jl FREDERICK [phone]-BmftwMercy Health [facility] [place] 12-02-2024 14:40-0500Heart rate72 /minMichael NILL [phone]-CbkdtMercy Health [facility] [place] 12-02-2024 14:40-0500Respiratory rate16 /minMichael NILL [phone]-LswllMercy Health [facility] [place] 12-02-2024 14:40-0500Systolic blood meszmlem662 mm[Hg]Jl NILL [phone]-IcaksUniversity Hospitals [facility] Center Surgery [place] 09-13-2023 10:30-0500Body zrxsuz512.56 cmAmbjania Love Other [employer] Other 11-16-2023 10:30-0500Body mass index (BMI) [Ratio] 23.14 kg/e6VldgeShae Love Other [employer] Other 11-16-2023 10:30-0500Body otdvnmwogaz55.4 [degF]Shae Love Other [employer] Other 11-16-2023 10:30-0500Body .15 kgShae Love Other [employer] Other 11-16-2023 10:30-0500Respiratory rate18 /minShae Love Other [employer] Other 11-16-2023 10:30-5348CfE7% (BldA) [Mass fraction]99 % Shae Love Other [employer] Other 06-24-2022 09:07-0400Blood Pressure LocationMichael NILL [phone]-ThikeMercy Health U[facility] Hospital [facility] [place] 06-24-2022 09:07-0400Diastolic blood mm[Hg] Jl NILL [phone]-AuublMercy Health Urbana Hospital [facility] [place] 06-24-2022 09:07-0400Heart rate92 /minMichael NILL [phone]-MsiyfMercy Health [facility] [place] 06-24-2022 09:07-0400Respiratory rate16 /minMichael NILL [phone]-DlkwsUniversity Hospitals Beachwood [facility] Center Surgery [place] 06-24-2022 09:07-0400Systolic blood nlrtfilo771 mm[Hg] Jl NILL [phone]-UsklkUniversity Hospitals Beachwood Medical Center Surgery [place] Encounters Encounter DateEncounter TypeCare ProviderFacilityStart: 01-12-2025 End: 86-84-7432ohsbbryhikYxsnnpGordo Ta DPMFacility:[facility] Everetttart: 12-02-2024 End: 91-69-7498mdwywbboxbGdjidyb R NILLFacility:Kindred Healthcaretart: 12-02-2024 End: 18-94-4531Ozcbifa encounter procedureMichael R NILL [phone]-HrtblMercy Health Urb[facility] Hospital [facility] Surgery [place] Start: 06-12-2024 End: 09-07-4696Llxtltnvj department patient visitMerMadison Health HospitalStart: 34-80-0380Hhqpgh outpatient new 20 minutesShae [facility] Start: 09-13-2023 End: 99-90-6796xccfmdrcvrJsvsm L KellerNost. [facility] [employer] Other Start: 09-13-2023 End: 14-93-4523Tbctwqd encounter procedureAPRN Shae Love Work Phone: [facility] Work Phone: Start: 10-09-2022 End: 57-10-0600nvlmxwglkkIO ANGELICA HOYFacility:V2Nytau: 09-04-2022 End: 06-73-4199cfvnhhbpbuCB ANGELICA HOYFacility:G8Wwmbo: 09-01-2022 End: 50-88-4810ywotoeohgbOG ANGELICA HOYFacility:J8Amjvp: 05-30-2022 End: 11-20-1566bnxhztgqwyDJ ANGELICA HOYFacility:R9Chrpz: 05-12-2022 End: 85-79-7746Oghtifi encounter procedureMichael R NILL General Surgery Nill/Said [place] Start: 05-03-2022 End: 56-65-6608Bowlxst encounter procedureMichael R NILL General Surgery Nill/Said [place] Start: 04-21-2022 End: 66-12-8734Wjksfmi encounter procedureMichael R NILL [phone]-DfehpMercy Health [facility] Hospital [facility] [place] Start: 43-42-5385hvyihiimnjYO ANGELICA HOYFacility:H1 Start: 04-17-2022 End: 48-50-0413yemiksamogHI ANGELICA HOYFacility:G8Wjnki: 04-05-2022 End: 04-49-8949pqpuljgoqpPD ANGELICA HOYFacility:W5Pslqj: 02-27-2022 End: 88-34-5994gbwltfkdeiOW ANGELICA HOYFacility:Q3Ohdsa: 02-25-2022 End: 52-40-5759qpwlbjzjirFQKLEQ RODRIGUEZFacility:H1 Procedures DateProcedureProcedure DetailPerforming ClinicianStart: 39-48-5049Zaezyhukxs examination of kneeAPRN Shae Love Work Phone: Start: 49-55-3478Ttbtqdtu of dermatofibromaMichael NILL Comment on above:left ankleStart: 07-08-2015 laparoscopic cholecystectomy with intraoperative cholangiogramMichael NILL Abdominal hysterectomyMichael NILL Bilateral complete salpingectomyMichael NILL Diagnostic laparoscopyMichael NILL Loop electrosurgical excision procedureMichael NILL Payers DatePayer CategoryPayerPolicy [id number] 2.840.1.529656.3.579.2.62753-69-6994Qhwlhqh8552637 2.840.1.700306.3.579.[id number] 2.840.1.346978.3.579.2.61273-20-8631Hywdrkx7461007 2.840.1.003104.3.579.2.69180-88-8182Nmpdqvu8222173 2.16.840.1.102498.3.579.2.24922-83-6895Htadoeb5484069 2.840.1.350880.3.579.2.99360-44-0528Rubmrsv6846728 2.840.1.724317.3.579.2.62276-00-8765Wlmdbia7622926 2.840.1.366299.3.579.2.35602-02-4332Orhiloa5824950 2.16.840.1.161139.3.579.2.[id number] 2.16.840.1.682202.3.579.2.68975-29-2055Zjxpszf12828991 2.16.840.1.050940.3.579.2.84[id number] 2.16.840.1.447036.3.579.2.84344-77-0119Yqat-ps[id number] [id number] 2.16.840.1.690085.3.579.2.531 Social History DateTypeDetailFacilityStart: 40-42-8025Wkszbdd smoking statusEx-smoker (finding) [facility] Tobacco smoking statusNeverWadsworth-[facility] Sex Assigned At [facility] Start: 53-89-4326Ake [facility]tart: 93-37-4554Vwqeeam smoking statusHeavy tobacco smoker (finding)[facility] Functional Status BuowRxokqvcdygQikekbBhdqcrft81-59-1362Qfijyayhhz StatusN/AFTriHealth [facility]06-24-2022Functional StatusN/[facility] Clinical Note 12-02-2024 Note Date & OsohOihlDkwyrlql51-56-8707 NoteGeneral Surgery Office/Clinic Note Chief Complaint consultation [...] Hypothyroidism: Mother. Primary malignant neoplasm of bladder: Father.[facility] HospitalComment on above:Result Comment: Electronically Signed By: Jl FREDERICK MD\.br\Date and Time Signed: 12/02/24 15:12 EST Evaluation note 09-13-2023 Note Date & LdijXuptAebqjpku98-08-4879 Evaluation note* Encounter Date Diagnosis Assessment Notes [...] understanding and is agreeable to treatment plan [facility] Other Evaluation + Plan note Note Date & TypeNoteFacilityEvaluation + Plan note Future Appointments Appointment Date:05/03/2022 03:00:00 PM Scheduled Provider:Jl FREDERICK MD Location:[facility] Appointment Type: Procedure 30 [facility] [place] Evaluation + Plan note Note Date & TypeNoteFacilityEvaluation + Plan note Future Appointments Appointment Date:05/12/2022 03:40:00 PM Scheduled Provider:Jl FREDERICK MD Location:[facility] Appointment Type: Post Op 15 General Surgery [place] Evaluation note Note Date & TypeNoteFacilityEvaluation noteNo assessment information available [facility] Work Phone: History general Narrative - Reported Note Date & TypeNoteFacilityHistory general Narrative - Reported* Type Description Date Medical History Anxiety disorder Medical Historychronic depressionMedical HistorythyriodSurgical HistoryLEAP [facility]Local Other Hospital course Narrative Note Date & TypeNoteFacilityHospital course Narrative No data available for this section [facility] [place] [facility] Discharge instructions Note Date & TypeNoteFacilityHospital Discharge instructions No data available for this section [facility] [place] Progress note Note Date & TypeNoteFacilityProgress note No data available for this section [facility] [place] Summary Purpose Family History No Family History [...] section and content) DATE CREATED AUTHOR 10/20/[address] [facility] DATE CREATED AUTHOR AUTHOR'S ORGANIZ ATION 12/07/2023 [facility] DATE CREATED AUTHOR AUTHOR'S ORGANIZ ATION 06/15/2024 [facility] DATE CREATED AUTHOR AUTHOR'S ORGANIZ ATION 12/04/2024 [facility] DATE CREATED AUTHOR AUTHOR'S ORGANIZ ATION 01/25/2025 [facility] REASON FOR VISIT (unrecogniz ed [...] BE BASED ON THE PRIMARY CLINICAL RECORDS. [facility] [employer] [facility]. provides no warranty or guarantee of the accuracy or completeness of information in this document.
--- NOTE | 2025-09-07 11:32 | XR_ITS ---
[facility] [place] [id number] Patient Name: LUCIA HERNDON MRN: [id number] date: 1980 Sex: F Assigned Patient Location: LAB Current Patient Location: Accession/Order Number: [id number] Exam Date: 09/07/2025 11:40 Report Date: 09/08/2025 08:10 At the request of: ANGELICA VERONICA MD Procedure: XR shoulder LT min 2V LEFT SHOULDER - 3 views CLINICAL HISTORY: Left shoulder pain today. No injury. M25.819 COMPARISON: None AP, Y and Grashey views were obtained. There is no evidence of fracture or dislocation. There are no significant soft tissue abnormalities. XR/XR shoulder LT min 2V IMPRESSION: NO ACUTE BONY FINDINGS. Impression dictated by: Sonia Callahan M.D. 09/08/2025 8:10 AM Dictation Location: [address] [place] [address] Electronically authenticated by: [id number] Y Date: 09/08/2025 08:10
[2025-09-07 11:53] LABS: Hematocrit 38.8 % (36.0-48.0); Hemoglobin 13.5 g/dL (12.0-16.0); Immature Granulocytes Abs Auto 0.08 10^3/uL (0.00-0.03); Immature Granulocytes Pct Auto 0.7 % (0.0-0.5); Lymphocytes Absolute Auto 4.1 10^3/uL (1.2-3.8); Mean Corpuscular HGB Conc 34.8 g/dL (29.9-35.2); Mean Corpuscular Hemoglobin 31.3 pg (26.7-34.0); Mean Corpuscular Volume 90.0 fL (81.0-99.0); Platelet Count 284 10^3/uL (150-450); Red Blood Count 4.31 10^6/uL (4.20-5.40); White Blood Count 11.2 10^3/uL (4.0-11.0)
[2025-09-07 13:53] LABS: Alanine Aminotransferase 42 U/L (14-59); Albumin Globulin Ratio 1.1; Albumin Level 3.7 g/dL (3.4-5.0); Alkaline Phosphatase 108 U/L (46-116); Anion Gap 10.4; Aspartate Amino Transferase 15 U/L (15-37); Blood Urea Nitrogen 11.0 mg/dL (7.0-18.0); Calcium 8.9 mg/dL (8.5-10.1); Carbon Dioxide 29.2 mmol/L (21.0-32.0); Chloride 105 mmol/L (98-107); Estimated GFR (African America >60 (>=60 mL/min/1.73m^2); Estimated GFR (Non-African Ame >60 (>=60 mL/min/1.73m^2); Globulin 3.5 g/dL; Glucose 93 mg/dL (74-106); Potassium 3.6 mmol/L (3.5-5.1); Sodium 141 mmol/L (136-145); Total Protein 7.2 g/dL (6.4-8.2); Uric Acid 3.3 mg/dL (2.6-6.0)
[2025-09-09 11:08] LABS: Antinuclear Antibodies, IFA Negative (.)
== END 2025-09-07 11:16 | disposition home or self-care (01) ==
LOC: LAB 11:16
PROVIDERS: PCP Family Medicine; Visit Provider Family Medicine
DX: M23.92 Unspecified internal derangement of left knee (principal); M25.812 Other specified joint disorders, left shoulder
CPT/HCPCS: 36415; 73030; 80053; 84550; 85025; 85652; 86038; 86060; 86140; 86431